=== PATIENT | female | born 1950 | race Caucasian/White ===

== ENCOUNTER 2023-04-22 05:34 | Emergency (ER) | payer OTHER, MEDICAID, SELFPAY ==
[2023-04-22 05:43] VITALS: BP 149/67; PULSE 104; PULSE 72; RESP 20; TEMP 37.2; O2SAT 98; O2SAT 99; BMI 25.7
--- NOTE | 2023-04-22 06:31 | PC.NURSE ---
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 Pt reports fevers and chills at home. 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 Bilateral arm swelling with scabbed wounds noted, boils noted to right upper arm. 22G IV line placed, blood work collected and sent to lab.
[2023-04-22 06:42] LABS: Alanine Aminotransferase 11 U/L (0-31); Albumin Level 2.9 g/dL (3.5-5.0); Alkaline Phosphatase 87 U/L (39-117); Anion Gap 14 (12-20); Aspartate Amino Transferase 13 U/L (5-31); Bilirubin Total 0.2 mg/dL (0.0-1.0); Blood Urea Nitrogen 22 mg/dL (9-16); Calcium 8.5 mg/dL (8.4-10.2); Carbon Dioxide 25 mmol/L (22-29); Chloride 100 mmol/L (96-108); Creatinine Clr Calc Pharmacy 36.6; Estimated Glomerular Filt Rate 40; Glucose Random 271 mg/dL (60-115); Potassium 4.6 mmol/L (3.3-5.1); Sodium 134 mmol/L (135-145); Total Protein 8.2 g/dL (6.5-8.0)
--- NOTE | 2023-04-22 07:20 | PC.NURSE ---
PT IS A/O X 4 NO SOB/STEFANI NOTED. PT IS LEGALLY BLIND. PT IS CONSTANTLY CRYING OUT FOR PAIN MED. AWARE. PT IS ALSO STATING THAT SHE WANTS TO LEAVE.
--- NOTE | 2023-04-22 07:40 | PC.NURSE ---
PT IS ADAMANTLY REFUSING ALL CARE AND STATES THAT SHE WANTS TO LEAVE BECAUSE HER RIDE IS ON ITS WAY. AWARE.
--- NOTE | 2023-04-22 07:46 | ED_ITS ---
HPI - Extremity Problem General Chief complaint: Extremity Problem Stated complaint: pain in arm from sores Time Seen by Provider: 04/22/23 07:02 History of Present Illness HPI Narrative: Patient has a long history of skin infection to bilateral upper extremity. Currently patient claims she is only on vancomycin as she is not allergic to that antibiotic. She has allergies to cephalosporins, clindamycin, doxycycline, E-Mycin, Levaquin, Macrobid, penicillin, Linezolid, sulfa antibiotics. Patient is getting ready to see a specialist in [place] to treat her chronic wounds. Once the pain medication. Patient normally goes to [facility]. No coughing or congestion upper respiratory symptoms. No abdominal pain. No nausea no vomiting. Been having some fever on and off. None today. Related Data Allergies Allergy/AdvReac Type Severity Reaction Status Date / Time cephalexin [From Keflex] Allergy Severe HIVES Verified 04/22/23 06:01 clindamycin [Clindamycin] Allergy Severe HIVES Verified 04/22/23 06:01 doxycycline [Doxycycline] Allergy Severe HIVES Verified 04/22/23 06:01 erythromycin base Allergy Severe HIVES Verified 04/22/23 06:01 [Erythromycin Base] levofloxacin [From Levaquin] Allergy Severe THROAT Verified 04/22/23 06:01 TIGHTENS nitrofurantoin Allergy Severe HIVES Verified 04/22/23 06:01 [From Macrobid] Penicillins Allergy Severe HIVES Verified 04/22/23 06:01 aspirin Allergy Unknown Hives Verified 04/22/23 06:01 linezolid [From ZYVOX] Allergy Unknown UNKNOWN Verified 04/22/23 06:01 Sulfa (Sulfonamide Allergy Unknown HIVES Verified 04/22/23 06:01 Antibiotics) [SULFA (SULFONAMIDE ANTIBIOTICS)] sulfacetamide Allergy Unknown Hives Verified 04/22/23 06:01 Erythromycin Allergy Unknown Hives Uncoded 04/22/23 06:01 seafood/shellfish Allergy Unknown Facial Uncoded 04/22/23 06:01 Swelling Sulfacet-R Allergy Unknown Hives Uncoded 04/22/23 06:01 Review of Systems Review of Systems: Positive bilateral upper extremity pain Positive chronic wounds of bilateral upper extremity Yes all other systems are reviewed and are negative PMFSH Past Medical History Attestation statement: The following information was validated with the patient. Social History Social History Alcohol intake: never Smoked in Last 30 Days: No Use of substances other than those prescribed or required for medical reasons: No Advance Directives: Yes Advance Directives Information Provided: Yes Advance Directives on File: No Physical Exam Vital Signs: Vital Signs: Last Vital Signs Temp 98.9 F 04/22/23 05:43 Pulse 72 04/22/23 05:43 Resp 20 04/22/23 05:43 BP 149/67 H 04/22/23 05:43 Pulse Ox 98 04/22/23 05:43 O2 Del Method Room Air 04/22/23 05:43 BMI result Body Mass Index 25.7 Appearance: Alert. Oriented X3. No acute distress. Eyes: Pupils equal, round and reactive to light. ENT: Pharynx normal. Neck: Normal inspection. Neck supple. No lymph nodes noted. No crepitus CVS: Normal heart rate and rhythm. Pulses normal. Normal S1 and S2. No murmurs appreciated Respiratory: No respiratory distress. Breath sounds normal. No Wheezing. No rales Abdomen: Soft and nontender. No rigidity. No distention. good BS x4 Bilateral upper extremity the forearms show multiple multiple chronic wounds with a slight erythematous base that is not warm to touch. Multiple ulcerations filling the entire forearm bilaterally. There is swelling in the hands bilate rally. Sensation over the hand intact over the median radial and ulnar nerves. Capillary refill less than 2 seconds. In the arm there is multiple fluctuant mass noted especially over the right upper extremity they are not warm to touch they appear chronic Extremities: No lower extremity edema. Neurovascular intact to all extremities. No Lacerations. No Rash Neuro: Oriented X 3. No motor deficit. No sensory deficit. Moving all extermities. No slurred speech Medical Decision Making Medical Decision Making MDM Narrative: Patient has multiple chronic wounds in the forearms and in the arms bilaterally. Labs are initially ordered at triage. Patient's electrolytes appear normal. White count is still pending. Patient did not want additional care. Wants a dose of pain medication. States that she has a specialist in [place]. Explained to patient the need for follow-up. Especially in the setting these extensive chronic wounds. Risk of loss of upper extremity use. Risk of infection. Risk of explained. Patient claims she is already on vancomycin. This provider had some doubts how well the vancomycin were orally. She is signing out against medical advice. A dose of pain medication was given as the wounds appeared very painful. Patient is leaving against medical advice Differential Diagnosis Differential Diagnoses: The differential diagnosis associated with the presentation includes Cellulitis, abscess, chronic wound Admission/Observation Consideration of admission/observation: Escalation of care including admission/observation considered Patient refuse Lab Data MDM Lab Attestation statement: I reviewed the patient's lab results. 04/22/23 06:20 04/22/23 06:20 Labs: Lab Results 04/22/23 Range/Units 06:20 Sodium 134 L (135-145) mmol/L Potassium 4.6 (3.3-5.1) mmol/L Chloride 100 (96-108) mmol/L Carbon Dioxide 25 (22-29) mmol/L Anion Gap 14 (12-20) BUN 22 H (9-16) mg/dL Creatinine 1.30 (0.5-1.4) mg/dL Estim Creat Clear Calc 36.6 Estimated GFR 40 Random Glucose 271 H (60-115) mg/dL Calcium 8.5 (8.4-10.2) mg/dL Total Bilirubin 0.2 (0.0-1.0) mg/dL AST 13 (5-31) U/L ALT 11 (0-31) U/L Alkaline Phosphatase 87 (39-117) U/L Total Protein 8.2 H (6.5-8.0) g/dL Albumin 2.9 L (3.5-5.0) g/dL External Record Review Patient has record from [facility] they reviewed Discharge Plan Discharge Clinical Impression: Upper extremity pain Patient Disposition: Left Against Medical Advice Instructions: Arm Pain (ED) Additional Instructions: Risk of infection, risk of severe disability exists. Referrals: Karla Ceballos MD [Primary Care Provider] - 04/23/23 Stand Alone Forms: Against Medical Advice
--- NOTE | 2023-04-22 07:50 | PC.NURSE ---
PT IS FULLY DRESSED IN STREET CLOTHING AND IS ADAMANTLY REQUESTING D/C PAPERWORK. AWARE.
[2023-04-22] MEDS: HYDROmorphone HCl 0.5 MG/0.5 ML SYRINGE IVPUSH (07:55)
== END 2023-04-22 08:00 | disposition left against medical advice (07) ==
PROVIDERS: Emergency Provider Emergency Medicine Emergency Medical Services; PCP Pediatrics
DX: M79.602 Pain in left arm (principal); M79.601 Pain in right arm
CPT/HCPCS: 36415; 80053; 96374; 99284; J1170

== ENCOUNTER 2023-07-27 12:23 | Emergency (ER) | payer OTHER, MEDICAID, SELFPAY ==
--- NOTE | ~2023-07-27 | XR_ITS ---
EXAMINATION: XR CHEST CLINICAL INFORMATION: Hypoxia, aspiration COMPARISON: Chest x-ray on 02/13/2012 TECHNIQUE: Frontal view of the chest was obtained. FINDINGS: vascularity. LUNGS: Tiny horizontal linear atelectasis is seen at lateral right lung base. No pneumothorax is seen. None. XR/XR chest 1V IMPRESSION: Interval development of tiny right lateral lung base horizontal linear atelectasis. Please note that chest x-ray has limited sensitivity for groundglass infiltrates.
[2023-07-27 12:30] VITALS: BP 107/63; BP 115/54; PULSE 100; PULSE 95; RESP 16; TEMP 36.5; O2SAT 90; O2SAT 99; BMI 22.4
--- NOTE | 2023-07-27 12:36 | ECG_ITS ---
Test Reason : ams Blood Pressure : / mmHG Vent. Rate : 086 BPM Atrial Rate : 086 BPM P-R Int : 118 ms QRS Dur : 068 ms QT Int : 366 ms P-R-T Axes : 081 058 016 degrees QTc Int : 437 ms Normal sinus rhythm Nonspecific ST and T wave abnormality Abnormal ECG When compared with ECG of 24-JUL-2010 13:02, Nonspecific T wave abnormality now evident in Lateral leads Heart rate has increased Referred By: Cheyenne Benjamin Electronically Signed By:MT LAGUNAS MD
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
--- NOTE | 2023-07-27 13:47 | PC.NURSE ---
pt found by [employer] unresponsive. 4mg Narcan given. Pt became arousable and vomited. Since being in ED pt is alert, responsive, speaking in full sentences with stable vitals and high 02 sat. pt is poor historian. bilateral wounds in various stages of healing to arms. about 1 inch second stage sacral wound as well as area of bleeding close to anus. PA notified. pt has had a couple bouts of vomiting in room. tech attempting lab work, plan of care ongoing
[2023-07-27 14:19] LABS: MANUAL DIFF FLAG NO
[2023-07-27 14:24] LABS: VBG Base Excess -3.7 mmol/L; VBG HCO3 22 mmol/L (22-26); VBG pCO2 41 mmHg; VBG pH 7.32 (7.32-7.43); VBG pO2 60 mmHg
[2023-07-27 14:24] LABS: Basophils Percent Auto 0.4 % (0-2); Hematocrit 25.7 % (37.0-47.0); Hemoglobin 8.1 g/dl (12.0-16.0); Imm Gran Abs Auto 0.06 X10*3/uL (0.00-0.03); Imm Gran Pct Auto 0.9 % (0.0-0.4); Lymphocytes Absolute Auto 1.2 X10*3/uL (1.2-4.9); Lymphocytes Percent Auto 16.4 % (20-40); Mean Corpuscular HGB Conc 31.5 g/dl (31.0-35.0); Mean Corpuscular Hemoglobin 29.3 pg (27.0-33.0); Mean Corpuscular Volume 93.1 fL (80.0-98.0); Monocytes Absolute Auto 0.4 X10*3/uL (0.1-1.2); Neutrophils Absolute Auto 5.3 x10*3/uL (2.0-8.3); Neutrophils Percent Auto 76.3 % (45-73); Platelet Count 369 X10*3/uL (160-400); Red Blood Count 2.76 X10*6/uL (4.20-5.50); Red Cell Distribution Width 16.5 % (11.0-16.0); Venous Blood Gas Refer to POC result
--- NOTE | 2023-07-27 14:35 | PC.NURSE ---
soft foam dressing applied to sacral wound
[2023-07-27 14:44] LABS: B Type Natriuretic Peptide 180 pg/mL (<100)
[2023-07-27 14:49] LABS: Troponin-I High Sensitivity < 2.7 ng/L (<3.5-17.0)
[2023-07-27 14:50] LABS: Alanine Aminotransferase 7 U/L (0-31); Alkaline Phosphatase 120 U/L (39-117); Anion Gap 12 (12-20); Aspartate Amino Transferase 11 U/L (5-31); Bilirubin Direct 0.2 mg/dL (0.0-0.5); Bilirubin Total 0.2 mg/dL (0.0-1.0); Blood Urea Nitrogen 25 mg/dL (9-16); Calcium 8.4 mg/dL (8.4-10.2); Carbon Dioxide 19 mmol/L (22-29); Chloride 111 mmol/L (96-108); Creatinine Clr Calc Pharmacy 35.3; Estimated Glomerular Filt Rate 44; Glucose Random 97 mg/dL (60-115); Magnesium 1.4 mg/dL (1.6-2.6); Potassium 4.1 mmol/L (3.3-5.1); Sodium 138 mmol/L (135-145); Total Protein 6.6 g/dL (6.5-8.0)
[2023-07-27 15:17] VITALS: BP 107/55; PULSE 82; RESP 16; TEMP 36.5; O2SAT 97
[2023-07-27 15:27] LABS: Appearance Urine Clear; Color Urine Yellow; Glucose Urine UA Negative (Negative); Leukocyte Esterase Urine Trace (Negative); Nitrite Urine Negative (Negative); Specific Gravity - Urine 1.015 (1.005-1.025); UMIC TRIGGER UACC YES; Urine Blood Small (1+) (Negative); Urine Ketones Negative (Negative); Urine Protein Trace mg/dL (Neg-Trace)
[2023-07-27 15:33] LABS: Amphetamine Screen Urine Not Detected (Not Detect); Barbiturates, Urine Not Detected (Not Detect); Benzodiazepines Screen Urine Not Detected (Not Detect); Cannabinoid Screen Urine Not Detected (Not Detect); Cocaine Screen Urine Not Detected (Not Detect); Fentanyl, urine POSITIVE (Not Detect); Opiate Screen Urine POSITIVE (Not Detect); Phencyclidine Screen Urine Not Detected (Not Detect)
[2023-07-27 15:46] LABS: Bacteria Urine None Seen (None Seen); Hyaline Casts Urine 0-2 /LPF (0-2); Squamous Epithelial Cell Urine 0-2 /HPF (0-2); WBC Urine 0-5 /HPF (0-5)
[2023-07-27] MEDS: Magnesium Oxide 400 MG TABLET 800 MG PO (15:49)
--- NOTE | 2023-07-27 15:55 | PC.NURSE ---
medicated per nov with magnesium. wounds on sacral area and anal area dressed. Apple juice given. vitals stable, no signs of distress. plan to DC home
== END 2023-07-27 16:59 | disposition home or self-care (01) ==
PROVIDERS: Physician Assistant; Emergency Provider Emergency Medicine Emergency Medical Services; PCP Pediatrics
DX: T40.1X1A Poisoning by heroin, accidental (unintentional), initial encounter (principal); T40.411A Poisoning by fentanyl or fentanyl analogs, accidental (unintentional), initial encounter; F19.10 Other psychoactive substance abuse, uncomplicated; R09.02 Hypoxemia; Y92.9 Unspecified place or not applicable; D64.9 Anemia, unspecified; Z86.14 Personal history of Methicillin resistant Staphylococcus aureus infection; Z79.899 Other long term (current) drug therapy
CPT/HCPCS: 36415; 71045; 80048; 80076; 80307; 81001; 82803; 83735; 83880; 84484; 85025; 93005; 99284

== ENCOUNTER 2023-08-03 17:06 | Inpatient (IN) | payer OTHER, SELFPAY ==
[2023-08-03] VITALS (7 sets, daily range): BP systolic 115–134; BP diastolic 58–77; PULSE 96–124; RESP 16–22; TEMP 36.4–37.2; O2SAT 94–98; BMI 22.1
--- NOTE | ~2023-08-03 | XR_ITS ---
EXAMINATION: XR CHEST CLINICAL INFORMATION: Fever COMPARISON: 08/03/2023 TECHNIQUE: Frontal view of the chest was obtained. FINDINGS: Lungs grossly clear given technique. Heart and pulmonary vessels normal. There is advanced degenerative change in the shoulder joints. XR/XR chest 1V IMPRESSION: No active disease.
--- NOTE | ~2023-08-03 | XR_ITS ---
EXAMINATION: PORTABLE CHEST 1 VIEW CLINICAL INFORMATION: sob, cough. COMPARISON: 07/27/2023. TECHNIQUE: Portable frontal view of the chest was obtained. FINDINGS: The lungs are well expanded. No focal infiltrate, effusion, edema, or pneumothorax. Cardiac and mediastinal silhouettes are within normal limits for technique. No acute bony abnormality seen. XR/XR chest 1V IMPRESSION: No evidence of acute disease.
--- NOTE | 2023-08-03 17:15 | ECG_ITS ---
Test Reason : SOB Blood Pressure : / mmHG Vent. Rate : 122 BPM Atrial Rate : 122 BPM P-R Int : 130 ms QRS Dur : 074 ms QT Int : 298 ms P-R-T Axes : 079 057 -51 degrees QTc Int : 424 ms Sinus tachycardia Possible Left atrial enlargement ST & T wave abnormality, consider inferior ischemia ST & T wave abnormality, consider anterior ischemia Abnormal ECG When compared with ECG of 27-JUL-2023 12:58, Non-specific change in ST segment in Inferior leads T wave inversion now evident in Anterior leads Referred By: Shari Jacobson Electronically Signed By:MT LAGUNAS MD
--- NOTE | 2023-08-03 17:17 | ED.GENADULT ---
HPI - General Adult General Chief complaint: Recheck/Abnormal Lab/Rx Stated complaint: ABNORMAL LABS Time Seen by Provider: 08/03/23 17:08 Source: patient and EMS Mode of arrival: EMS Limitations: no limitations History of Present Illness HPI narrative: Patient comes to the emergency room complaining abnormal hemoglobin levels. Patient states that about a week ago, she needed a transfusion, patient known to be anemic, patient does not know her diagnosis. Patient states she is in dynamic since childhood and has had multiple transfusions. Patient states that she got a phone call from her primary care physician a few minutes ago, regarding her blood work, patient was instructed to come to the emergency room as she may need a blood transfusion. Patient complaining of shortness of breath. Patient states that she has her inhaler approximately 3-1/2 hours ago but the shortness of breath keeps getting worse. Patient denies black stool or bloody stool. 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 Related Data Allergies Allergy/AdvReac Type Severity Reaction Status Date / Time cephalexin [From Keflex] Allergy Severe HIVES Verified 04/22/23 06:01 clindamycin [Clindamycin] Allergy Severe HIVES Verified 04/22/23 06:01 doxycycline [Doxycycline] Allergy Severe HIVES Verified 04/22/23 06:01 erythromycin base Allergy Severe HIVES Verified 04/22/23 06:01 [Erythromycin Base] levofloxacin [From Levaquin] Allergy Severe THROAT Verified 04/22/23 06:01 TIGHTENS nitrofurantoin Allergy Severe HIVES Verified 04/22/23 06:01 [From Macrobid] Penicillins Allergy Severe HIVES Verified 04/22/23 06:01 aspirin Allergy Unknown Hives Verified 04/22/23 06:01 linezolid [From ZYVOX] Allergy Unknown UNKNOWN Verified 04/22/23 06:01 Sulfa (Sulfonamide Allergy Unknown HIVES Verified 04/22/23 06:01 Antibiotics) [SULFA (SULFONAMIDE ANTIBIOTICS)] sulfacetamide Allergy Unknown Hives Verified 04/22/23 06:01 Erythromycin Allergy Unknown Hives Uncoded 04/22/23 06:01 seafood/shellfish Allergy Unknown Facial Uncoded 04/22/23 06:01 Swelling Sulfacet-R Allergy Unknown Hives Uncoded 04/22/23 06:01 Review of Systems Review of Systems: Constitutional : No Weight loss, No Fever, No Chills, No Night Sweats, complaining of fatigue and generalized malaise ENT/Mouth : No Hearing loss, No Ear Pain, No Nasal Congestion, No Sinus Pain, No Hoarseness, No sore throat, No Rhinorrhea, No Swallowing Difficulty Eyes: No Eye Pain, No Swelling, No Redness, No Foreign Body, No Discharge, No Vision Changes Cardiovascular : No Chest Pain, No SOB, No Dyspnea on Exertion, No Orthopnea, No Edema, No Palpitations Respiratory : Complaining of cough without sputum production, complaining of wheezing, shortness of breath at rest Gastrointestinal : No Nausea, No Vomiting, No Diarrhea, No Constipation, No abdominal Pain, No Hematochezia, No Melena Genitourinary : no irregular bleeding, No Dysuria, No Urinary Frequency, No Hematuria, No Urinary Incontinence, No Urgency, No Flank Pain, No Urinary Flow Changes, No Hesitancy Musculoskeletal : No joint pain, No Myalgias, No Joint Swelling Skin , complaining of chronic sacral wounds Neuro : No Weakness, No Numbness, No Paresthesias, No Loss of Consciousness, No Dizziness, No Headache Psych : No Anxiety/Panic, No Depression, No SI/HI/AH/VH, No Social Issues, Heme/Lymph: Complaining of low hemoglobin Endocrine : No Polyuria, No Polydipsia, No Temperature Intolerance [facility] Past Medical History Medical History (Updated 08/03/23 @ 20:59 by Shari Jacobson MD) Chronic anemia MRSA cellulitis Asthma Legally blind Social History Social History Alcohol intake: never Smoked in Last 30 Days: No Advance Directives: No Advance Directives Information Provided: No Physical Exam ED Vital Signs: Vital Signs - 24 hr 08/03/23 17:41 08/03/23 17:50 08/03/23 19:19 Temperature 98.9 F 98.5 F Pulse Rate 112 H 107 H 111 H Respiratory Rate 22 H 16 20 Blood Pressure 134/77 126/65 Pulse Oximetry 97 97 Oxygen Delivery Method Room Air Room Air 08/03/23 21:02 Temperature Pulse Rate 100 Respiratory Rate 20 Blood Pressure Pulse Oximetry Oxygen Delivery Method BMI result Body Mass Index 22.1 Const Other: Appearance: Alert. Oriented X3. No acute distress. Eyes: Pupils equal, round and reactive to light. ENT: Pharynx normal. Neck: Normal inspection. Neck supple. No lymph nodes noted. No crepitus CVS: Normal heart rate and rhythm. Pulses normal. Normal S1 and S2 Respiratory: Tachypneic, bilateral wheezing, diminished air movement Abdomen: Soft and nontender. No rigidity. No distention. Digital rectal exam: Maroon colored stool Skin: Skin warm and dry. Pale skin color. Normal skin turgor. Patient has ulcers in the medial right upper arm and buttocks Extremities: No lower extremity edema. No Lacerations. No Rash Neuro: Oriented X 3. No motor deficit. No sensory deficit. Moving all extremities. No slurred speech. CN 2 through 12 grossly intact Psych: calm, cooperative, normal affect Course Course Course Narrative: -all of patient's labs pending -patient receiving a nebulization treatment, magnesium and Solu-Medrol Medications Administered Generic Name Dose Route Start Last Admin Trade Name Freq PRN Reason Stop Dose Admin Sodium Chloride 1,000 mls @ 999 mls/hr 08/03/23 20:46 08/03/23 21:00 Ns IVCONT 08/03/23 21:46 999 mls/hr .Q1H1M ONE Administration Discontinued Medications Generic Name Dose Route Start Last Admin Trade Name Freq PRN Reason Stop Dose Admin Albuterol Sulfate 2.5 mg/ 5 mg 08/03/23 17:48 08/03/23 17:50 Albuterol Sulfate 2.5 mg INHALE 08/03/23 17:49 5 mg ONCE ONE Administration Albuterol Sulfate 5 mg/ 0 mg 08/03/23 20:55 08/03/23 21:01 Albuterol/Ipratropium 3 ml INHALE 08/03/23 20:56 2.5 each ONCE ONE Administration Magnesium Sulfate 2 gm in 50 mls @ 25 mls/hr 08/03/23 17:16 08/03/23 20:02 Magnesium Sulfate/H2o IV 08/03/23 19:15 25 mls/hr ONCE ONE Administration Lidocaine HCl 5 ml 08/03/23 18:52 08/03/23 20:02 Lidocaine Hcl 2 % Mpf 5 Ml Vial INFILTRATI 08/03/23 18:53 5 ml ONCE ONE Administration Methylprednisolone Sodium Succinate 125 mg 08/03/23 17:16 08/03/23 20:02 Methylprednisolone Sod Succ 125 Mg/2 Ml Vial IVPUSH 08/03/23 17:17 125 mg ONCE ONE Administration Tramadol HCl 50 mg 08/03/23 20:46 08/03/23 20:59 Tramadol Hcl 50 Mg Tablet PO 08/03/23 20:47 50 mg ONCE ONE Administration Procedures EJ/Peripheral Line Neck R: Time Out Performed: Yes Skin Cleansed in Sterile Fashion: Yes Size (gauge): 18 IV Secured and Dressing Applied: Yes Patient Tolerated Procedure: well and no complications Additional Comments: Right IJ Medical Decision Making Medical Decision Making [facility] Narrative: -my interpretation of chest x-ray: No infiltrate -my interpretation of labs, hemoglobin is 8.8. At this time, we will not transfuse. We will repeat H&H. Magnesium level 1.3, patient was given 2 g of magnesium -patient has history of anemia. However, patient states that she takes Motrin once or twice a day daily for several months now to alleviate pain from pressure ulcers in the buttocks -patient seems dehydrated, dry lips/mouth, patient will be hydrated with IV fluids after H&H has been repeated -patient breathing more comfortably after having an albuterol treatment, IV magnesium, Solu-Medrol. However, patient still wheezing -as mentioned above, patient has been prescribed Eliquis for the bilateral lower extremity DVTs. However, patient was instructed by her provider to not started until she is medically cleared. Therefore, patient has not had any doses of blood thinners yet. -I was informed by the patient's nurse that multiple nurses have tried to get IV access. Patient has significant amount of chronic scar tissue in upper lower extremities. I was able to insert an ultrasound-guided single-lumen in the right IJ -I discussed the patient Dr. Gillespie, patient being admitted -I was informed by the lab that the patient's hemoglobin is now 6.9. However, I spoke with the patient's nurse, seems that the lab was drawn from a line which may have contained saline? Will obtain an H&H, this time venous Differential Diagnosis Differential Diagnoses: The differential diagnosis associated with the presentation includes (Chronic anemia, upper GI bleed, lower GI bleed) Admission/Observation Consideration of admission/observation: Escalation of care including admission/observation considered Consult Healthcare Provider Management of the patient was discussed with: Hospitalist Lab Data MDM Lab Attestation statement: I reviewed the patient's lab results. 08/03/23 20:57 08/03/23 18:25 Labs: Lab Results 08/03/23 08/03/23 08/03/23 Range/Units 18:25 18:26 18:28 WBC 5.8 (4.8-10.8) X10*3/uL RBC 2.98 L (4.20-5.50) X10*6/uL Hgb 8.8 L (12.0-16.0) g/dl Hct 27.7 L (37.0-47.0) % MCV 93.0 (80.0-98.0) fL MCH 29.5 (27.0-33.0) pg MCHC 31.8 (31.0-35.0) g/dl RDW 17.1 H (11.0-16.0) % Plt Count 224 D (160-400) X10*3/uL MPV 10.0 (9.4-12.3) fL Immature Gran % (Auto) 0.5 H (0.0-0.4) % Neut % (Auto) 43.5 L (45-73) % Lymph % (Auto) 49.0 H (20-40) % Hall % (Auto) 6.2 (2-11) % Eos % (Auto) 0.3 (0-4) % Baso % (Auto) 0.5 (0-2) % Lymph # (Auto) 2.8 (1.2-4.9) X10*3/uL Hall # (Auto) 0.4 (0.1-1.2) X10*3/uL Eos # (Auto) 0.0 (0.0-0.4) X10*3/uL Baso # (Auto) 0.0 (0.0-0.2) X10*3/uL Abs Immat Gran (auto) 0.03 (0.00-0.03) X10*3/uL Absolute Neuts (auto) 2.5 (2.0-8.3) x10*3/uL Absolute Nucleated RBC 0.000 (0.0-0.012) X10*3/uL Nucleated RBC % (auto) 0.0 (0.0-0.2) /100WBC PT 11.7 (11.1-13.3) SEC INR 1.0 (0.9-1.1) APTT 25.9 L (26.0-36.4) SEC VBG pH (7.32-7.43) VBG pCO2 mmHg VBG pO2 mmHg VBG HCO3 (22-26) mmol/L VBG O2 Saturation % VBG Base Excess mmol/L Sodium 137 (135-145) mmol/L Potassium 4.0 (3.3-5.1) mmol/L Chloride 107 (96-108) mmol/L Carbon Dioxide 23 (22-29) mmol/L Anion Gap 11 L (12-20) BUN 23 H (9-16) mg/dL Creatinine 0.93 (0.5-1.4) mg/dL Estim Creat Clear Calc 45.8 Estimated GFR 59 Random Glucose 124 H (60-115) mg/dL Lactic Acid 1.6 (0.5-2.0) mmol/L Calcium 7.6 L D (8.4-10.2) mg/dL Magnesium 1.3 L* (1.6-2.6) mg/dL Total Bilirubin 0.2 (0.0-1.0) mg/dL Direct Bilirubin < 0.2 (0.0-0.5) mg/dL AST 10 (5-31) U/L ALT 7 (0-31) U/L Alkaline Phosphatase 102 (39-117) U/L Troponin I High Sens 4.3 D (<3.5-17.0) ng/L B-Natriuretic Peptide 98 (<100) pg/mL Total Protein 6.3 L (6.5-8.0) g/dL Albumin 2.0 L (3.5-5.0) g/dL Stool Occult Blood (NEGATIVE) Urine Opiates Screen (Not Detect) Urine Fentanyl Screen (Not Detect) Ur Barbiturates Screen (Not Detect) Ur Phencyclidine Scrn (Not Detect) Ur Amphetamines Screen (Not Detect) U Benzodiazepines Scrn (Not Detect) Urine Cocaine Screen (Not Detect) U Marijuana (THC) Screen (Not Detect) COVID-19 ([facility]) (Negative) COVID-19 Clin Com Blood Type AB Positive Antibody Screen NEGATIVE 11/03/23 11/03/23 11/03/23 Range/Units 18:29 18:33 19:18 WBC (4.8-10.8) X10*3/uL RBC (4.20-5.50) X10*6/uL Hgb (12.0-16.0) g/dl Hct (37.0-47.0) % MCV (80.0-98.0) fL MCH (27.0-33.0) pg MCHC (31.0-35.0) g/dl RDW (11.0-16.0) % Plt Count (160-400) X10*3/uL MPV (9.4-12.3) fL Immature Gran % (Auto) (0.0-0.4) % Neut % (Auto) (45-73) % Lymph % (Auto) (20-40) % Hall % (Auto) (2-11) % Eos % (Auto) (0-4) % Baso % (Auto) (0-2) % Lymph # (Auto) (1.2-4.9) X10*3/uL Hall # (Auto) (0.1-1.2) X10*3/uL Eos # (Auto) (0.0-0.4) X10*3/uL Baso # (Auto) (0.0-0.2) X10*3/uL Abs Immat Gran (auto) (0.00-0.03) X10*3/uL Absolute Neuts (auto) (2.0-8.3) x10*3/uL Absolute Nucleated RBC (0.0-0.012) X10*3/uL Nucleated RBC % (auto) (0.0-0.2) /100WBC PT (11.1-13.3) SEC INR (0.9-1.1) APTT (26.0-36.4) SEC VBG pH 7.37 (7.32-7.43) VBG pCO2 46 mmHg VBG pO2 38 mmHg VBG HCO3 26 (22-26) mmol/L VBG O2 Saturation 58.0 % VBG Base Excess 1.2 mmol/L Sodium (135-145) mmol/L Potassium (3.3-5.1) mmol/L Chloride (96-108) mmol/L Carbon Dioxide (22-29) mmol/L Anion Gap (12-20) BUN (9-16) mg/dL Creatinine (0.5-1.4) mg/dL Estim Creat Clear Calc Estimated GFR Random Glucose (60-115) mg/dL Lactic Acid (0.5-2.0) mmol/L Calcium (8.4-10.2) mg/dL Magnesium (1.6-2.6) mg/dL Total Bilirubin (0.0-1.0) mg/dL Direct Bilirubin (0.0-0.5) mg/dL AST (5-31) U/L ALT (0-31) U/L Alkaline Phosphatase (39-117) U/L Troponin I High Sens (<3.5-17.0) ng/L B-Natriuretic Peptide (<100) pg/mL Total Protein (6.5-8.0) g/dL Albumin (3.5-5.0) g/dL Stool Occult Blood POSITIVE (NEGATIVE) Urine Opiates Screen Not Detected (Not Detect) Urine Fentanyl Screen POSITIVE H (Not Detect) Ur Barbiturates Screen Not Detected (Not Detect) Ur Phencyclidine Scrn Not Detected (Not Detect) Ur Amphetamines Screen Not Detected (Not Detect) U Benzodiazepines Scrn Not Detected (Not Detect) Urine Cocaine Screen Not Detected (Not Detect) U Marijuana (THC) Screen Not Detected (Not Detect) COVID-19 ([facility]) Negative (Negative) COVID-19 Clin Com See Note Blood Type Antibody Screen 08/03/23 Range/Units 20:57 WBC (4.8-10.8) X10*3/uL RBC (4.20-5.50) X10*6/uL Hgb 6.9 L* D (12.0-16.0) g/dl Hct 21.8 L D (37.0-47.0) % MCV (80.0-98.0) fL MCH (27.0-33.0) pg MCHC (31.0-35.0) g/dl RDW (11.0-16.0) % Plt Count (160-400) X10*3/uL MPV (9.4-12.3) fL Immature Gran % (Auto) (0.0-0.4) % Neut % (Auto) (45-73) % Lymph % (Auto) (20-40) % Hall % (Auto) (2-11) % Eos % (Auto) (0-4) % Baso % (Auto) (0-2) % Lymph # (Auto) (1.2-4.9) X10*3/uL Hall # (Auto) (0.1-1.2) X10*3/uL Eos # (Auto) (0.0-0.4) X10*3/uL Baso # (Auto) (0.0-0.2) X10*3/uL Abs Immat Gran (auto) (0.00-0.03) X10*3/uL Absolute Neuts (auto) (2.0-8.3) x10*3/uL Absolute Nucleated RBC (0.0-0.012) X10*3/uL Nucleated RBC % (auto) (0.0-0.2) /100WBC PT (11.1-13.3) SEC INR (0.9-1.1) APTT (26.0-36.4) SEC VBG pH (7.32-7.43) VBG pCO2 mmHg VBG pO2 mmHg VBG HCO3 (22-26) mmol/L VBG O2 Saturation % VBG Base Excess mmol/L Sodium (135-145) mmol/L Potassium (3.3-5.1) mmol/L Chloride (96-108) mmol/L Carbon Dioxide (22-29) mmol/L Anion Gap (12-20) BUN (9-16) mg/dL Creatinine (0.5-1.4) mg/dL Estim Creat Clear Calc Estimated GFR Random Glucose (60-115) mg/dL Lactic Acid (0.5-2.0) mmol/L Calcium (8.4-10.2) mg/dL Magnesium (1.6-2.6) mg/dL Total Bilirubin (0.0-1.0) mg/dL Direct Bilirubin (0.0-0.5) mg/dL AST (5-31) U/L ALT (0-31) U/L Alkaline Phosphatase (39-117) U/L Troponin I High Sens (<3.5-17.0) ng/L B-Natriuretic Peptide (<100) pg/mL Total Protein (6.5-8.0) g/dL Albumin (3.5-5.0) g/dL Stool Occult Blood (NEGATIVE) Urine Opiates Screen (Not Detect) Urine Fentanyl Screen (Not Detect) Ur Barbiturates Screen (Not Detect) Ur Phencyclidine Scrn (Not Detect) Ur Amphetamines Screen (Not Detect) U Benzodiazepines Scrn (Not Detect) Urine Cocaine Screen (Not Detect) U Marijuana (THC) Screen (Not Detect) COVID-19 ([facility]) (Negative) COVID-19 Clin Com Blood Type Antibody Screen Independent Interpretation I performed an independent interpretation of an: Plain X-Ray Radiology Impression Discussion of test interpretation with radiology: I have reviewed the radiologist's reading. Radiologist Impression: FINDINGS: The lungs are well expanded. No focal infiltrate, effusion, edema, or pneumothorax. Cardiac and mediastinal silhouettes are within normal limits for technique. No acute bony abnormality seen. XR/XR chest 1V IMPRESSION: No evidence of acute disease. Critical Care Time Critical Care Time Critical Care Time: Yes Total Critical Care Time: 75 Attestation: I have personally provided critical care time. Time includes review of lab data, radiology results, discussion with consultants, and monitoring for potential decompensation. Intervention performed as documented. Discharge Plan Discharge Clinical Impression: GI bleed, Anemia, Asthma exacerbation, Hypomagnesemia Patient Disposition: Admitted As Inpatient
[2023-08-03] MEDS: Albuterol Sulfate 2.5 MG, Albuterol Sulfate (0.083%) 2.5 MG 5 MG INHALE ×2 (17:50→22:06)
--- NOTE | 2023-08-03 18:08 | PC.NURSE ---
attempted to obtain IV access, no luck. pt is a difficult stick. provider aware. will reattempt.
[2023-08-03 18:34] LABS: MANUAL DIFF FLAG NO
[2023-08-03 18:37] LABS: Basophils Percent Auto 0.5 % (0-2); Eosinophils Percent Auto 0.3 % (0-4); Hematocrit 27.7 % (37.0-47.0); Hemoglobin 8.8 g/dl (12.0-16.0); Imm Gran Abs Auto 0.03 X10*3/uL (0.00-0.03); Imm Gran Pct Auto 0.5 % (0.0-0.4); Lymphocytes Absolute Auto 2.8 X10*3/uL (1.2-4.9); Mean Corpuscular HGB Conc 31.8 g/dl (31.0-35.0); Mean Corpuscular Hemoglobin 29.5 pg (27.0-33.0); Monocytes Absolute Auto 0.4 X10*3/uL (0.1-1.2); Monocytes Percent Auto 6.2 % (2-11); Neutrophils Absolute Auto 2.5 x10*3/uL (2.0-8.3); Neutrophils Percent Auto 43.5 % (45-73); Platelet Count 224 X10*3/uL (160-400); Red Blood Count 2.98 X10*6/uL (4.20-5.50); Red Cell Distribution Width 17.1 % (11.0-16.0); White Blood Count 5.8 X10*3/uL (4.8-10.8)
[2023-08-03 18:42] LABS: VBG Base Excess 1.2 mmol/L; VBG HCO3 26 mmol/L (22-26); VBG pCO2 46 mmHg; VBG pH 7.37 (7.32-7.43); VBG pO2 38 mmHg
[2023-08-03 18:48] LABS: OBS Int Ctl Valid YES; OBS1 POSITIVE (NEGATIVE)
[2023-08-03 18:53] LABS: Lactic Acid 1.6 mmol/L (0.5-2.0)
[2023-08-03 18:54] LABS: Prothrombin Time 11.7 SEC (11.1-13.3)
[2023-08-03 18:56] LABS: B Type Natriuretic Peptide 98 pg/mL (<100); Partial Thromboplastin Time 25.9 SEC (26.0-36.4)
[2023-08-03 18:58] LABS: Troponin-I High Sensitivity 4.3 ng/L (<3.5-17.0)
[2023-08-03 18:59] LABS: Alanine Aminotransferase 7 U/L (0-31); Alkaline Phosphatase 102 U/L (39-117); Anion Gap 11 (12-20); Aspartate Amino Transferase 10 U/L (5-31); Bilirubin Direct < 0.2 mg/dL (0.0-0.5); Bilirubin Total 0.2 mg/dL (0.0-1.0); Blood Urea Nitrogen 23 mg/dL (9-16); Calcium 7.6 mg/dL (8.4-10.2); Carbon Dioxide 23 mmol/L (22-29); Chloride 107 mmol/L (96-108); Creatinine Clr Calc Pharmacy 45.8; Estimated Glomerular Filt Rate 59; Glucose Random 124 mg/dL (60-115); Magnesium 1.3 mg/dL (1.6-2.6); Sodium 137 mmol/L (135-145); Total Protein 6.3 g/dL (6.5-8.0)
[2023-08-03 19:00] LABS: COVID-19 Test Negative (Negative); IDNOW Serial# BCCEAD1C
[2023-08-03 19:13] LABS: Venous Blood Gas Refer to POC result
--- NOTE | 2023-08-03 19:15 | PC.NURSE ---
assumed are of pt
[2023-08-03 19:41] LABS: Amphetamine Screen Urine Not Detected (Not Detect); Barbiturates, Urine Not Detected (Not Detect); Benzodiazepines Screen Urine Not Detected (Not Detect); Cannabinoid Screen Urine Not Detected (Not Detect); Cocaine Screen Urine Not Detected (Not Detect); Fentanyl, urine POSITIVE (Not Detect); Opiate Screen Urine Not Detected (Not Detect); Phencyclidine Screen Urine Not Detected (Not Detect)
[2023-08-03] MEDS: Magnesium Sulfate/H2O 2 GM/50 ML PIGGYBACK IV (20:02)
[2023-08-03] MEDS: Lidocaine HCl 2 % MPF 5 ML VIAL INFILTRATI (20:02)
[2023-08-03] MEDS: methylPREDNISolone Sod Succ 125 MG/2 ML VIAL IVPUSH (20:02)
--- NOTE | 2023-08-03 20:03 | PC.NURSE ---
du in meds due to pt needed ej line
[2023-08-03] MEDS: traMADoL HCL 50 MG TABLET PO (20:59)
[2023-08-03] MEDS: 0.9 % Sodium Chloride 1,000 ML 999 ML IVCONT (21:00)
[2023-08-03] MEDS: Albuterol Sulfate 5 MG, Albuterol/Iprat 2.5/0.5MG 3 ML 3 ML INHALE (21:01)
[2023-08-03 21:05] LABS: Hematocrit 21.8 % (37.0-47.0)
[2023-08-03 21:11] LABS: Hemoglobin 6.9 g/dl (12.0-16.0)
--- NOTE | 2023-08-03 21:25 | PHA.MEDREC ---
Pharmacy Consult ? Medication Reconciliation Pharmacy has completed the medication reconciliation. Patient list all medications. Reported Flovent and Asmanex, however theres are in the same class of inhalers. Patient report 250 mcg for Flovent but did not know dose of Asamnex. Since Asamenx was not on claim history and she did not know dose, I did not include in home list since Flovent in a similar medication. Patient has not have clonazepam filled since may. Reports montelukast but that has not been filled recently. Cydney Mora, PharmD
[2023-08-03 21:47] LABS: Hematocrit 26.7 % (37.0-47.0); Hemoglobin 8.3 g/dl (12.0-16.0)
--- NOTE | 2023-08-03 22:31 | PM.IMHP ---
History of Present Illness Date of Service: 08/03/23 Chief Complaint: Abnormal labs Elli is a 73-year-old woman with a past medical history of COPD, hepatitis C, IV drug use, history of?MRSA abscesses,?history of c dif, history E. coli colitis, osteomyelitis of the humerus, clavicle, and scapula with MSSA bacteremia in [facility] of 2022 and was treated with joint terminal attack controller Abx?at [facility]. She has chronic anemia; baseline hematocrit?from reviewing records at [facility] is 26, which is essentially unchanged. Pt?reportedly had lab work done today and was told by PCP to come to the ED. Her blood count here shows hemoglobin of 8 and hematocrit of 26. She was prescribed eliquis 2.5 bid by her PCP today but states that she has not yet taken it, the indication is not clear Review of Systems Review of Systems: Gen: no fever Resp: no sob, no cough CV: no chest, no LEDBETTER, no leg edema GI: No n/v, no abd pain, occult blood + Neuro: No confusion [facility] Medical History Left against medical advice Bacteremia Chronic anemia MRSA cellulitis Asthma Legally blind Social History Household Members: Friend(s) Housing: Homeless Do you presently have visiting nurse or other home services: Yes Unable to assess alcohol history related to: Unknown Alcohol intake: former Patient Tobacco Use Status: Never used Tobacco e-Cigarette/Vaping Use: Former Use Second Hand Smoke Exposure: No Substance Use Type: Former Substance User service: No Meds Allergies Allergy/AdvReac Type Severity Reaction Status Date / Time cephalexin [From Keflex] Allergy Severe HIVES Verified 08/15/23 19:19 clindamycin [Clindamycin] Allergy Severe HIVES Verified 08/15/23 19:19 doxycycline [Doxycycline] Allergy Severe HIVES Verified 08/15/23 19:19 erythromycin base Allergy Severe HIVES Verified 08/15/23 19:20 [Erythromycin Base] levofloxacin [From Levaquin] Allergy Severe THROAT Verified 08/15/23 19:19 TIGHTENS nitrofurantoin Allergy Severe HIVES Verified 08/15/23 19:19 [From Macrobid] Penicillins Allergy Severe HIVES Verified 08/15/23 19:19 aspirin Allergy Unknown Hives Verified 08/15/23 19:19 linezolid [From ZYVOX] Allergy Unknown UNKNOWN Verified 08/15/23 19:19 Sulfa (Sulfonamide Allergy Unknown HIVES Verified 08/15/23 19:19 Antibiotics) [SULFA (SULFONAMIDE ANTIBIOTICS)] sulfacetamide Allergy Unknown Hives Verified 08/15/23 19:19 Erythromycin Allergy Unknown Hives Uncoded 04/22/23 06:01 seafood/shellfish Allergy Unknown Facial Uncoded 04/22/23 06:01 Swelling Sulfacet-R Allergy Unknown Hives Uncoded 04/22/23 06:01 Home Medications Medication Instructions Recorded Confirmed Last Taken Type albuterol sulfate 2.5 mg/3 mL 2.5 mg inhalation Q4H PRN 08/03/23 08/15/23 Unknown History (0.083 %) solution for nebulization Shortness Of Breath Or Wheezing albuterol sulfate 90 mcg/actuation 2 puff inhalation Q4-6H PRN 08/03/23 08/15/23 Unknown History aerosol inhaler Shortness Of Breath Or Wheezing cholecalciferol (vitamin D3) 25 25 mcg PO DAILY 08/03/23 08/15/23 Unknown History mcg (1,000 unit) tablet clonazepam 1 mg tablet 1 mg PO BEDTIME PRN Anxiety 08/03/23 08/15/23 Unknown History ferrous sulfate 325 mg (65 mg 325 mg PO BID 08/03/23 08/15/23 Unknown History iron) tablet,delayed release fluticasone propionate 220 1 puff inhalation BID 08/03/23 08/15/23 Unknown History mcg/actuation HFA aerosol inhaler (Flovent HFA) montelukast 10 mg tablet 10 mg PO DAILY 08/03/23 08/15/23 Unknown History omeprazole 20 mg capsule,delayed 20 mg PO BID 08/03/23 08/15/23 Unknown History release tiotropium bromide 18 mcg capsule 1 cap inhalation DAILY 08/03/23 08/15/23 Unknown History with inhalation device (Spiriva with HandiHaler) zolpidem 5 mg tablet 5 mg PO BEDTIME PRN Insomnia 08/03/23 08/15/23 Unknown History Physical Exam Vital Signs and Narrative: Vital Signs: Last Vital Signs Temp 98.5 F 08/03/23 19:19 Pulse 108 H 08/03/23 22:25 Resp 19 08/03/23 22:25 BP 122/62 08/03/23 22:25 Pulse Ox 97 08/03/23 19:19 O2 Del Method Room Air 08/03/23 19:19 BMI result Body Mass Index 22.1 Results Labs 08/14/23 06:26 08/14/23 06:26 Labs: Laboratory Results - last 24 hr 08/03/23 08/03/23 08/03/23 18:25 18:26 18:28 MCV 93.0 MCH 29.5 MCHC 31.8 RDW 17.1 H Plt Count 224 D MPV 10.0 Immature Gran % (Auto) 0.5 H Neut % (Auto) 43.5 L Lymph % (Auto) 49.0 H [place] % (Auto) 6.2 Eos % (Auto) 0.3 Baso % (Auto) 0.5 Lymph # (Auto) 2.8 [place] # (Auto) 0.4 Eos # (Auto) 0.0 Baso # (Auto) 0.0 Abs Immat Gran (auto) 0.03 Absolute Neuts (auto) 2.5 Absolute Nucleated RBC 0.000 Nucleated RBC % (auto) 0.0 PT 11.7 INR 1.0 APTT 25.9 L VBG pH VBG pCO2 VBG pO2 VBG HCO3 VBG O2 Saturation VBG Base Excess Anion Gap 11 L Estim Creat Clear Calc 45.8 Estimated GFR 59 Random Glucose 124 H Lactic Acid 1.6 Calcium 7.6 L D Magnesium 1.3 L* Total Bilirubin 0.2 Direct Bilirubin < 0.2 AST 10 ALT 7 Alkaline Phosphatase 102 B-Natriuretic Peptide 98 Total Protein 6.3 L Albumin 2.0 L Stool Occult Blood Urine Opiates Screen Urine Fentanyl Screen Ur Barbiturates Screen Ur Phencyclidine Scrn Ur Amphetamines Screen U Benzodiazepines Scrn Urine Cocaine Screen U Marijuana (THC) Screen COVID-19 (MIKIE) COVID-19 Clin Com Blood Type AB Positive Antibody Screen NEGATIVE 08/03/23 08/03/23 08/03/23 18:29 18:33 19:18 MCV MCH MCHC RDW Plt Count MPV Immature Gran % (Auto) Neut % (Auto) Lymph % (Auto) [place] % (Auto) Eos % (Auto) Baso % (Auto) Lymph # (Auto) [place] # (Auto) Eos # (Auto) Baso # (Auto) Abs Immat Gran (auto) Absolute Neuts (auto) Absolute Nucleated RBC Nucleated RBC % (auto) PT INR APTT VBG pH 7.37 VBG pCO2 46 VBG pO2 38 VBG HCO3 26 VBG O2 Saturation 58.0 VBG Base Excess 1.2 Anion Gap Estim Creat Clear Calc Estimated GFR Random Glucose Lactic Acid Calcium Magnesium Total Bilirubin Direct Bilirubin AST ALT Alkaline Phosphatase B-Natriuretic Peptide Total Protein Albumin Stool Occult Blood POSITIVE Urine Opiates Screen Not Detected Urine Fentanyl Screen POSITIVE H Ur Barbiturates Screen Not Detected Ur Phencyclidine Scrn Not Detected Ur Amphetamines Screen Not Detected U Benzodiazepines Scrn Not Detected Urine Cocaine Screen Not Detected U Marijuana (THC) Screen Not Detected COVID-19 (MIKIE) Negative COVID-19 Clin Com See Note Blood Type Antibody Screen Imaging Radiologist's Impressions: Impressions Chest X-Ray 08/03/23 18:55 IMPRESSION: No evidence of acute disease. Assessment and Plan (1) Pneumonia: Qualifiers: Pneumonia type: due to unspecified organism Laterality: right Lung location: middle lobe of lung Qualified Code(s): J18.9 - Pneumonia, unspecified organism Status: Acute Plan 73-year-old woman with a past medical history of COPD, hepatitis C, IV drug use, history of MRSA abscesses, history of osteomyelitis of the humerus, clavicle and scapula with MSSA bacteremia in of 2022 and was treated with joint terminal attack controller Abx at [facility]. She has chronic anemia baseline hematocrit from reviewing record at [facility] is 26 which is essentially unchanged. Pt reportedly had lab work done today and was told by PCP to come to the ED. Blood count here show hemoglobin of 8 and hematocrit 26. Anemia and +occult blood--anemia is chronic with stable H/H, +occult blood is likely also positive. There is no indication for transfusion. Observe and repeat H/H in the morning. Hold the Eliquis that was prescribed today. Transfuse if hemoglobin < 7. Gi consult History of drug use, tox screen is positive for fentanyl Decub ulcers, present on admission, wound care nurse to assess Pt states she was supposed to start taking eliquis 2.5 mg twice daily, reason unclear but at any event been hold d/t anemia, check with PCP I could not identify record here or [facility] to support use of anticoagulation DVT prophylaxis, device, full code obs Quality Stroke Does the patient have a stroke diagnosis?: No VTE Prior VTE?: No VTE Risk Level:: Medical - moderate - high VTE Device Contraindication: N/A - Device Ordered VTE Drug Contraindication: Treatment Not Tolerated
[2023-08-03] MEDS: 0.9 % Sodium Chloride Flush 3 ML SYRINGE IVFLUSH (23:53)
[2023-08-04] VITALS (11 sets, daily range): BP systolic 102–155; BP diastolic 63–76; PULSE 79–100; RESP 16–20; TEMP 36.1–37; O2SAT 97–100; BMI 18.1
--- NOTE | 2023-08-04 00:17 | PC.NURSE ---
nurse- nurse report given
[2023-08-04] MEDS: traMADoL HCL 50 MG TABLET PO ×3 (01:31→18:12)
[2023-08-04] MEDS: Albuterol Sulfate (0.083%) 2.5 MG/3 ML VIAL.NEB INHALE (01:48)
[2023-08-04 08:20] LABS: Hematocrit 22.6 % (37.0-47.0); Hemoglobin 7.4 g/dl (12.0-16.0); Mean Corpuscular HGB Conc 32.7 g/dl (31.0-35.0); Mean Corpuscular Hemoglobin 29.6 pg (27.0-33.0); Mean Corpuscular Volume 90.4 fL (80.0-98.0); Mean Platelet Volume 10.2 fL (9.4-12.3); Platelet Count 153 X10*3/uL (160-400); Red Cell Distribution Width 16.7 % (11.0-16.0); White Blood Count 3.9 X10*3/uL (4.8-10.8)
[2023-08-04] MEDS: Magnesium Sulfate/H2O 2 GM/50 ML PIGGYBACK IV (09:26)
[2023-08-04] MEDS: 0.9 % Sodium Chloride Flush 3 ML SYRINGE IVFLUSH (09:26)
--- NOTE | 2023-08-04 10:46 | P.CNGI_ITS ---
History of Present Illness Data of Consult Service Date: 08/04/23 Requesting physician: Walker Gillespie Primary Care Provider: Karla Ceballos MD HPI Reason for consult: Gastrointestinal bleeding, anemia 73 YF with asthma, COPD, depression/anxiety, hx hepatitis C, hx IVDA, legally blind, chronic bilateral arm wounds, reportedly MRSA with several antibiotic allergies, history of?MRSA abscesses,?history of C diff, history E. coli colitis, osteomyelitis of the humerus, clavicle, and scapula with MSSA bacteremia in June 2023 and was treated with intermediate manager Abx?at [facility]. Pt denies past hx of PUD or overt GI bleeding. She denies symptoms of heartburn, dysphagia, nausea, vomiting, black stools or blood in the stool. Patient denies any recent change in appetite or weight. She gives history of diarrhea related to C diff in the past which has subsided after treatment. Patient denies smoking or EtOH abuse and denies IV drug use (of note urine drug screen was positive for Fentanyl) Pt reports being treated for hepatitis-C in the past with oral medications. She denies a history of loud snoring was sleep apnea. Patient reports having an EGD and a colonoscopy 3 years ago (? at [facility]) which was negative per patient. Patient denies known family history of colon cancer or polyps. Patient lives with a roommate and her HAND STONE POLISHER lives next door to her and is available to drive her to appointments. 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 Pt?reportedly had lab work done on 08/03/23 and was advised by her PCP to come to the ED. Labs at [facility] showed H & H of 8.8 & 27.7, repeat labs last night showed H & H of 8.3 & 26.7 and 7.4 & 22.6 morning of 08/04/23. Stool occult blood was positive Order has been placed for transfusion of 2 U PRBC Pt reported she was prescribed eliquis 2.5 bid by her PCP (? for blood clots in her legs) and has not started taking it yet Review of Systems 2 Review of Systems: Gen: no fever Resp: no sob, no cough CV: no chest, no LEDBETTER, no leg edema GI: No n/v, no abd pain, occult blood + Neuro: No confusion PMFSH Past Medical History Medical History (Updated 08/08/23 @ 16:15 by Sheila Bailey MD) Bacteremia Chronic anemia MRSA cellulitis Asthma Legally blind Social History Social History Household Members: None Housing: Homeless Do you presently have visiting nurse or other home services: No Unable to assess alcohol history related to: Unknown Alcohol intake: never Patient Tobacco Use Status: Never used Tobacco Smoked in Last 30 Days: No e-Cigarette/Vaping Use: Former Use Patient Interested in Nicotine Replacement: No Patient Given Instructions on How to Stop Smoking: No Second Hand Smoke Exposure: No Use of substances other than those prescribed or required for medical reasons: No Last Used Substance: Just Prior to Admission Last Used Substance Other:: denies, but tested positive for fentanyl Currently Displaying Signs/Symptoms of Drug Intoxication Withdrawal: No Any prior treatment program specific to substance use: Yes Have you been hit, kicked, punched, or otherwise hurt by someone within the past year? If so, by whom?: No Do you feel safe in your current relationship?: No Is there a partner from a previous relationship who is making you feel unsafe now?: No Are you made to feel afraid or neglected: No Are you DNR?: No Advance Directives: No Advance Directives Information Provided: No Advance Directives on File: No Do you have thoughts of harming others: None Do you have a plan to hurt others: No Plan Recently lost weight without trying: No Eating poorly because of decreased appetite: No Nutrition Risks: No Nutritional Risk Patient : No : No Poor oral hygiene: Yes service: No Meds Allergies Allergy/AdvReac Type Severity Reaction Status Date / Time cephalexin [From Keflex] Allergy Severe HIVES Verified 04/22/23 06:01 clindamycin [Clindamycin] Allergy Severe HIVES Verified 04/22/23 06:01 doxycycline [Doxycycline] Allergy Severe HIVES Verified 04/22/23 06:01 erythromycin base Allergy Severe HIVES Verified 04/22/23 06:01 [Erythromycin Base] levofloxacin [From Levaquin] Allergy Severe THROAT Verified 04/22/23 06:01 TIGHTENS nitrofurantoin Allergy Severe HIVES Verified 04/22/23 06:01 [From Macrobid] Penicillins Allergy Severe HIVES Verified 04/22/23 06:01 aspirin Allergy Unknown Hives Verified 04/22/23 06:01 linezolid [From ZYVOX] Allergy Unknown UNKNOWN Verified 04/22/23 06:01 Sulfa (Sulfonamide Allergy Unknown HIVES Verified 04/22/23 06:01 Antibiotics) [SULFA (SULFONAMIDE ANTIBIOTICS)] sulfacetamide Allergy Unknown Hives Verified 04/22/23 06:01 Erythromycin Allergy Unknown Hives Uncoded 04/22/23 06:01 seafood/shellfish Allergy Unknown Facial Uncoded 04/22/23 06:01 Swelling Sulfacet-R Allergy Unknown Hives Uncoded 04/22/23 06:01 Active Medications: Current Medications Acetaminophen (Acetaminophen 325 Mg Tablet) 650 mg PO Q6H PRN PRN Reason: Pain, Mild (Pain Scale 1-3) Albuterol Sulfate (Albuterol Sulfate (0.083%) 2.5 Mg/3 Ml Vial.Neb) 2.5 mg INHALE Q4H PRN PRN Reason: Shortness Of Breath Or Wheezing Last Admin: 08/04/23 01:48 Dose: 2.5 mg Albuterol Sulfate (Albuterol Sulfate 90 Mcg 8 Gm Inhaler) 2 puff INHALE Q4H PRN PRN Reason: Shortness Of Breath Or Wheezing Clonazepam (Clonazepam 1 Mg Tablet) 1 mg PO BEDTIME PRN PRN Reason: Anxiety Ferrous Sulfate (Ferrous Sulfate 324 Mg Tablet.Dr) 324 mg PO BID GETACHEW Fluticasone Propionate (Fluticasone Propionate 250 Mcg Blst.W.Dev) 1 puff INHALE RBID GETACHEW Last Admin: 08/04/23 08:14 Dose: Not Given Magnesium Sulfate (Magnesium Sulfate/H2o) 2 gm in 50 mls @ 25 mls/hr IV ONCE ONE Stop: 08/04/23 11:03 Last Admin: 08/04/23 09:26 Dose: 25 mls/hr Melatonin (Melatonin 3 Mg Tablet) 6 mg PO BEDTIME PRN PRN Reason: Insomnia Montelukast Sodium (Montelukast Sodium 10 Mg Tablet) 10 mg PO DAILY [facility] Omeprazole (Omeprazole 20 Mg Capsule.Dr) 20 mg PO BID [facility] Ondansetron HCl (Ondansetron Hcl 4 Mg/2 Ml Vial) 4 mg IVPUSH Q8H PRN PRN Reason: Nausea and Vomiting Sodium Chloride (0.9 % Sodium Chloride Flush 3 Ml Syringe) 3 ml IVFLUSH QSHIFT [facility] Last Admin: 08/04/23 09:26 Dose: 3 ml Tiotropium [place] (Tiotropium [place] 2.5 Mcg Inhaler) 2 puff INHALE DAILY [facility] Last Admin: 08/04/23 08:14 Dose: Not Given Tramadol HCl (Tramadol Hcl 50 Mg Tablet) 50 mg PO Q8H PRN PRN Reason: Pain, Severe (Pain Scale 7-10) Last Admin: 08/04/23 01:31 Dose: 50 mg Vitamin D (Cholecalciferol (Vitamin D3) 25 Mcg Tablet) 25 mcg PO DAILY [facility] Zolpidem Tartrate (Zolpidem Tartrate 5 Mg Tablet) 5 mg PO BEDTIME PRN PRN Reason: Insomnia Home Medications Medication Instructions Recorded Confirmed Last Taken Type albuterol sulfate 2.5 mg/3 mL 2.5 mg inhalation Q4H PRN 08/03/23 08/03/23 Unknown History (0.083 %) solution for nebulization Shortness Of Breath Or Wheezing albuterol sulfate 90 mcg/actuation 2 puff inhalation Q4-6H PRN 08/03/23 08/03/23 Unknown History aerosol inhaler Shortness Of Breath Or Wheezing apixaban 2.5 mg tablet (Eliquis) 2.5 mg PO BID 08/03/23 Unknown History cholecalciferol (vitamin D3) 25 25 mcg PO DAILY 08/03/23 08/03/23 Unknown History mcg (1,000 unit) tablet clonazepam 1 mg tablet 1 mg PO BEDTIME PRN Anxiety 08/03/23 08/03/23 Unknown History ferrous sulfate 325 mg (65 mg 325 mg PO BID 08/03/23 08/03/23 Unknown History iron) tablet,delayed release fluticasone propionate 220 1 puff inhalation BID 08/03/23 08/03/23 Unknown History mcg/actuation HFA aerosol inhaler (Flovent HFA) ibuprofen 600 mg tablet 600 mg PO TID PRN pain 08/03/23 08/03/23 Unknown History montelukast 10 mg tablet 10 mg PO DAILY 08/03/23 08/03/23 Unknown History omeprazole 20 mg capsule,delayed 20 mg PO BID 08/03/23 08/03/23 Unknown History release tiotropium bromide 18 mcg capsule 1 cap inhalation DAILY 08/03/23 08/03/23 Unknown History with inhalation device (Spiriva with HandiHaler) zolpidem 5 mg tablet 5 mg PO BEDTIME PRN Insomnia 08/03/23 08/03/23 Unknown History Physical Exam 2 Vital Signs: Vital Signs: Last Vital Signs Temp 98.0 F 08/04/23 07:45 Pulse 82 08/04/23 07:45 Resp 18 08/04/23 07:45 BP 144/63 H 08/04/23 07:45 Pulse Ox 99 08/04/23 07:45 O2 Del Method Room Air 08/04/23 07:45 BMI result Body Mass Index 18.1 Const: General: no acute distress Nutritional Appearance: underweight O rientation/consciousness: patient oriented x3 Limitations: no limitations HEENT: Head: Yes normal to inspection Ears: hearing grossly normal bilaterally Eyes: Other: Right ryr blindness Neck: Neck: Yes normal visual inspection Chest: Chest palpation & inspection: normal inspection of the chest Resp: Effort & Inspection: normal respiratory effort Auscultation: clear to auscultation bilaterally Cardio: Palpation: normal PMI Rate: regular rate Rhythm: regular rhythm Heart sounds: S1 normal heart sound present, S2 normal heart sound present and no murmurs GI: Palpation (GI): Soft to palpation, nontender and No hepatosplenomegaly present Auscultation: normal bowel sounds Rectal Exam - Female: deferred Skin: General skin exam: no rashes or lesions noted Neuro: General: patient oriented x3, gait normal and moves all extremities Extrem: General: Yes other (Bilateral upper extremity the forearms show multiple scars & chronic wound) Psych: Appearance: grossly normal Mental Status: mental status grossly normal Results Labs 08/08/23 05:48 08/08/23 05:48 Labs: Short CBC 08/03/23 08/03/23 08/03/23 Range/Units 18:28 20:57 21:31 WBC 5.8 (4.8-10.8) X10*3/uL Hgb 8.8 L 6.9 L* D 8.3 L D (12.0-16.0) g/dl Hct 27.7 L 21.8 L D 26.7 L D (37.0-47.0) % Plt Count 224 D (160-400) X10*3/uL 08/04/23 Range/Units 07:57 WBC 3.9 L (4.8-10.8) X10*3/uL Hgb 7.4 L (12.0-16.0) g/dl Hct 22.6 L (37.0-47.0) % Plt Count 153 L D (160-400) X10*3/uL BMP 08/03/23 18:25 Sodium 137 Potassium 4.0 Chloride 107 Carbon Dioxide 23 BUN 23 H Creatinine 0.93 Calcium 7.6 L D Liver Function 08/03/23 Range/Units 18:25 Total Bilirubin 0.2 (0.0-1.0) mg/dL Direct Bilirubin < 0.2 (0.0-0.5) mg/dL AST 10 (5-31) U/L ALT 7 (0-31) U/L Alkaline Phosphatase 102 (39-117) U/L Albumin 2.0 L (3.5-5.0) g/dL Assessment and Plan (1) Anemia: Status: Acute (2) Heme positive stool: Status: Acute Plan 73 YF with asthma, COPD, depression/anxiety, hx hepatitis C, hx IVDA, legally blind, chronic bilateral arm wounds, reportedly MRSA with several antibiotic allergies, history of?MRSA abscesses,?history of C diff, history E. coli colitis, osteomyelitis of the humerus, clavicle, and scapula with MSSA bacteremia in June 2023 and was treated with custodial Abx?at [facility]. Pt denies past hx of PUD or overt GI bleeding. Pt has chronic normocytic normochromic anemia; baseline hematocrit?from reviewing records at [facility] is 26, which is essentially unchanged. She has been evaluated at [facility] with an EGD and Colon in the past (per pt colon was performed 3 years ago) - I will obtain records. Pt?reportedly had lab work done on 08/03/23 and was advised by her PCP to come to the ED. Labs at [facility] showed H & H of 8.8 & 27.7, repeat labs last night showed H & H of 8.3 & 26.7 and 7.4 & 22.6 morning of 08/04/23. Stool occult blood was positive. Order has been placed for transfusion of 2 U PRBC Anemia is likely multifactorial - nutritional, chronic bilateral arm wounds with possible slow GI blood loss RECOMMENDATIONS: 1. Agree with PO Omeprazole twice daily 2. Check iron studies and ferritin 3. I will schedule an EGD on 08/05/23 - scheduled at 12 pm. Ok to resume regular diet today and make NPO after midnight tonight for EGD tomorrow Procedures Date of Service Date of Service: 08/08/23
[2023-08-04] MEDS: Montelukast Sodium 10 MG TABLET PO (11:37)
[2023-08-04] MEDS: Ferrous Sulfate 324 MG TABLET.DR PO ×2 (11:37→20:48)
[2023-08-04] MEDS: Omeprazole 20 MG CAPSULE.DR PO ×3 (11:37→20:40)
[2023-08-04] MEDS: Cholecalciferol (Vitamin D3) 25 MCG TABLET PO (11:37)
[2023-08-04] MEDS: Furosemide 20 MG/2 ML VIAL IVPUSH (11:38)
--- NOTE | 2023-08-04 13:44 | HO.PM.IMPN ---
Subjective Subjective Date of Service: 08/04/23 Interval History: No acute issues overnight. No active bleeding. Patient hungry this morning Review of Systems Denies chest pain Denies shortness of breath Denies nausea vomiting diarrhea Denies fever chills Physical Exam Vital Signs: Vital Signs: Last Vital Signs Temp 97.1 F 08/04/23 12:30 Pulse 79 08/04/23 12:30 Resp 16 08/04/23 12:30 BP 137/65 08/04/23 12:30 Pulse Ox 98 08/04/23 11:09 O2 Del Method Room Air 08/04/23 11:09 BMI result Body Mass Index 18.1 Const: Other: Awake alert no acute distress Resp: Other: Clear to auscultation bilaterally no rales rhonchi wheezes Cardio: Other: No S4; positive S1-S2; no S3 murmurs rubs or gallops GI: Other: Soft nontender nondistended normoactive bowel sounds Extrem: Other: No edema bilaterally Objective Data Active Medications Acetaminophen (Acetaminophen 325 Mg Tablet) 650 mg PO Q6H PRN PRN Reason: Pain, Mild (Pain Scale 1-3) Albuterol Sulfate (Albuterol Sulfate (0.083%) 2.5 Mg/3 Ml Vial.Neb) 2.5 mg INHALE Q4H PRN PRN Reason: Shortness Of Breath Or Wheezing Last Admin: 08/04/23 01:48 Dose: 2.5 mg Documented By: NADINE Albuterol Sulfate (Albuterol Sulfate 90 Mcg 8 Gm Inhaler) 2 puff INHALE Q4H PRN PRN Reason: Shortness Of Breath Or Wheezing Clonazepam (Clonazepam 1 Mg Tablet) 1 mg PO BEDTIME PRN PRN Reason: Anxiety Ferrous Sulfate (Ferrous Sulfate 324 Mg Tablet.) 324 mg PO BID [facility] Last Admin: 08/04/23 11:37 Dose: 324 mg Documented By: ANDREA Fluticasone Propionate (Fluticasone Propionate 250 Mcg Blst.W.Dev) 1 puff INHALE RBID [facility] Last Admin: 08/04/23 08:14 Dose: Not Given Documented By: WILFRID Non-Admin Reason: Med Not Available Melatonin (Melatonin 3 Mg Tablet) 6 mg PO BEDTIME PRN PRN Reason: Insomnia Montelukast Sodium (Montelukast Sodium 10 Mg Tablet) 10 mg PO DAILY [facility] Last Admin: 08/04/23 11:37 Dose: 10 mg Documented By: ANDREA Omeprazole (Omeprazole 20 Mg Capsule.) 20 mg PO BID [facility] Last Admin: 08/04/23 11:37 Dose: 20 mg Documented By: ANDREA Ondansetron HCl (Ondansetron Hcl 4 Mg/2 Ml Vial) 4 mg IVPUSH Q8H PRN PRN Reason: Nausea and Vomiting Sodium Chloride (0.9 % Sodium Chloride Flush 3 Ml Syringe) 3 ml IVFLUSH QSHIFT [facility] Last Admin: 08/04/23 09:26 Dose: 3 ml Documented By: ANDREA Tiotropium [place] (Tiotropium [place] 2.5 Mcg Inhaler) 2 puff INHALE DAILY [facility] Last Admin: 08/04/23 08:14 Dose: Not Given Documented By: WILFRID Non-Admin Reason: Med Not Available Tramadol HCl (Tramadol Hcl 50 Mg Tablet) 50 mg PO Q8H PRN PRN Reason: Pain, Severe (Pain Scale 7-10) Last Admin: 08/04/23 09:00 Dose: 50 mg Documented By: ANDREA Vitamin D (Cholecalciferol (Vitamin D3) 25 Mcg Tablet) 25 mcg PO DAILY [facility] Last Admin: 08/04/23 11:37 Dose: 25 mcg Documented By: ANDREA Zolpidem Tartrate (Zolpidem Tartrate 5 Mg Tablet) 5 mg PO BEDTIME PRN PRN Reason: Insomnia Labs 08/04/23 07:57 08/03/23 18:25 Labs: Laboratory Results - last 24 hr 08/03/23 08/03/23 08/03/23 18:25 18:26 18:28 MCV 93.0 MCH 29.5 MCHC 31.8 RDW 17.1 H Plt Count 224 D MPV 10.0 Immature Gran % (Auto) 0.5 H Neut % (Auto) 43.5 L Lymph % (Auto) 49.0 H [place] % (Auto) 6.2 Eos % (Auto) 0.3 Baso % (Auto) 0.5 Lymph # (Auto) 2.8 [place] # (Auto) 0.4 Eos # (Auto) 0.0 Baso # (Auto) 0.0 Abs Immat Gran (auto) 0.03 Absolute Neuts (auto) 2.5 Absolute Nucleated RBC 0.000 Nucleated RBC % (auto) 0.0 PT 11.7 INR 1.0 APTT 25.9 L VBG pH VBG pCO2 VBG pO2 VBG HCO3 VBG O2 Saturation VBG Base Excess Anion Gap 11 L Estim Creat Clear Calc 45.8 Estimated GFR 59 Random Glucose 124 H Lactic Acid 1.6 Calcium 7.6 L D Magnesium 1.3 L* Total Bilirubin 0.2 Direct Bilirubin < 0.2 AST 10 ALT 7 Alkaline Phosphatase 102 B-Natriuretic Peptide 98 Total Protein 6.3 L Albumin 2.0 L Stool Occult Blood Urine Opiates Screen Urine Fentanyl Screen Ur Barbiturates Screen Ur Phencyclidine Scrn Ur Amphetamines Screen U Benzodiazepines Scrn Urine Cocaine Screen U Marijuana (THC) Screen COVID-19 (MIKIE) COVID-19 Clin Com Blood Type AB Positive Antibody Screen NEGATIVE Crossmatch See Detail 08/03/23 08/03/23 08/03/23 18:29 18:33 19:18 MCV MCH MCHC RDW Plt Count MPV Immature Gran % (Auto) Neut % (Auto) Lymph % (Auto) [place] % (Auto) Eos % (Auto) Baso % (Auto) Lymph # (Auto) [place] # (Auto) Eos # (Auto) Baso # (Auto) Abs Immat Gran (auto) Absolute Neuts (auto) Absolute Nucleated RBC Nucleated RBC % (auto) PT INR APTT VBG pH 7.37 VBG pCO2 46 VBG pO2 38 VBG HCO3 26 VBG O2 Saturation 58.0 VBG Base Excess 1.2 Anion Gap Estim Creat Clear Calc Estimated GFR Random Glucose Lactic Acid Calcium Magnesium Total Bilirubin Direct Bilirubin AST ALT Alkaline Phosphatase B-Natriuretic Peptide Total Protein Albumin Stool Occult Blood POSITIVE Urine Opiates Screen Not Detected Urine Fentanyl Screen POSITIVE H Ur Barbiturates Screen Not Detected Ur Phencyclidine Scrn Not Detected Ur Amphetamines Screen Not Detected U Benzodiazepines Scrn Not Detected Urine Cocaine Screen Not Detected U Marijuana (THC) Screen Not Detected COVID-19 (MIKIE) Negative COVID-19 Clin Com See Note Blood Type Antibody Screen Crossmatch 08/04/23 07:57 MCV 90.4 MCH 29.6 MCHC 32.7 RDW 16.7 H Plt Count 153 L D MPV 10.2 Immature Gran % (Auto) Neut % (Auto) Lymph % (Auto) [place] % (Auto) Eos % (Auto) Baso % (Auto) Lymph # (Auto) [place] # (Auto) Eos # (Auto) Baso # (Auto) Abs Immat Gran (auto) Absolute Neuts (auto) Absolute Nucleated RBC 0.000 Nucleated RBC % (auto) 0.0 PT INR APTT VBG pH VBG pCO2 VBG pO2 VBG HCO3 VBG O2 Saturation VBG Base Excess Anion Gap Estim Creat Clear Calc Estimated GFR Random Glucose Lactic Acid Calcium Magnesium Total Bilirubin Direct Bilirubin AST ALT Alkaline Phosphatase B-Natriuretic Peptide Total Protein Albumin Stool Occult Blood Urine Opiates Screen Urine Fentanyl Screen Ur Barbiturates Screen Ur Phencyclidine Scrn Ur Amphetamines Screen U Benzodiazepines Scrn Urine Cocaine Screen U Marijuana (THC) Screen COVID-19 (MIKIE) COVID-19 Clin Com Blood Type Antibody Screen Crossmatch Assessment and Plan (1) GI bleed: Status: Acute (2) Anemia: Status: Acute (3) Hypomagnesemia: Status: Acute Plan 73-year-old woman with a past medical history of COPD, hepatitis C, IV drug use, history of MRSA abscesses, history of osteomyelitis of the humerus, clavicle and scapula with MSSA bacteremia in [facility] of 2022 and was treated with terminal computer operator Abx at [facility]. She has chronic anemia baseline hematocrit from reviewing record at [facility] is 26 which is essentially unchanged. Pt reportedly had lab work done today and was told by PCP to come to the ED. Blood count here show hemoglobin of 8 and hematocrit 26. No active bleeding overnight !.?GIB -no active bleeding overnight -seen by GI; will keep NPO after midnight for possible scope in a.m. -advance diet today 2. Anemia -transfuse given hemoglobin of 7.4 -follow CBC 3. Hypo magnesemia -repleted -follow-up clinically Full code Boots Requires ongoing hospitalization for blood transfusion and possible EGD in a.m. Quality Stroke Does the patient have a stroke diagnosis?: No VTE Prior VTE?: No VTE Risk Level:: Medical - moderate - high VTE Device Contraindication: N/A - Device Ordered VTE Drug Contraindication: Treatment Not Tolerated
--- NOTE | 2023-08-04 15:19 | MHC.CM.PN ---
Addendum entered by Haydee Mendoza, RN 08/04/23 15:46: DUE TO PT'S DRUG USE, REFERRAL TO BE PLACED TO [facility] [place], [facility] DIONICIO Original Note: SID 08/04/23, EMR REVIEWED, CM MET W/PT WHO KYRGYZ SPEAKING, A&O AND LEGALLY BLIND, PT IS VERY ANXIOUS AND REPORTS SHE IS NOW HOMELESS SHE WAS STAYING W/A FRIEND WHO IS ON HOUSING AND NOW BEING EVICTED, PT REPORTS HER HCP MARLON [phone] IS LOOKING INTO HOUSING FOR PT HOWEVER UNSURE HOW LONG THAT WILL TAKE. PT REPORTS SHE HAS A CANE THAT SHE GOT FROM THE [employer] [employer] HOWEVER TYPICALLY WALKS AROUND WITH NOTHING, PT REPORTING SHE NEEDS WOUND CARE/VNA/PT HOWEVER IS CONCERNED SHE HAS NO WHERE TO GO. CM HAS REQUESTED A PT EVAL TO SEE IF PT WILL QUALIFY FOR STR. PT VERIFIES PCP IS MARLON ELLER AND COPY OF HCP REQUESTED.
--- NOTE | 2023-08-04 15:37 | PC.NURSE ---
Addendum entered by Jazmin Patel RN 08/04/23 15:54: Per provider; Kush Braxton, central line to be placed tomorrow, hold on blood at this time Original Note: Pt alert and oriented, able to answer questions appropriately. PT required 2 units PRBC, 125ml infused from first bag and PT only IV site started bleeding during infusion. PT is a difficult stick with her HX of MRSA abscess, staff writer were unsuccessful at inserting new IV placement. PT does have some bruising around neck where IV site was. Physician, blood bank notified. PT remains in bed this shift. PT diet advanced to regular, tolerated well. PT to be NPO at midnight for potential scan tomorrow.
[2023-08-04] MEDS: Fluticasone Propionate 250 MCG BLST.W.DEV 1 PUFF INHALE (19:30)
[2023-08-04] MEDS: clonazePAM 1 MG TABLET PO (20:41)
[2023-08-04] MEDS: Acetaminophen 325 MG TABLET 650 MG PO (20:42)
[2023-08-05] VITALS (15 sets, daily range): BP systolic 119–147; BP diastolic 52–85; PULSE 86–102; RESP 16–22; TEMP 36.1–37.1; O2SAT 96–98
[2023-08-05] MEDS: traMADoL HCL 50 MG TABLET PO ×3 (01:13→18:25)
[2023-08-05] MEDS: Fluticasone Propionate 250 MCG BLST.W.DEV 1 PUFF INHALE (07:04)
[2023-08-05 07:59] LABS: MANUAL DIFF FLAG NO
[2023-08-05 08:03] LABS: Basophils Percent Auto 0.3 % (0-2); Eosinophils Percent Auto 0.1 % (0-4); Hemoglobin 7.2 g/dl (12.0-16.0); Imm Gran Abs Auto 0.06 X10*3/uL (0.00-0.03); Imm Gran Pct Auto 0.8 % (0.0-0.4); Lymphocytes Absolute Auto 1.9 X10*3/uL (1.2-4.9); Lymphocytes Percent Auto 25.1 % (20-40); Mean Corpuscular HGB Conc 32.7 g/dl (31.0-35.0); Mean Corpuscular Hemoglobin 29.9 pg (27.0-33.0); Mean Corpuscular Volume 91.3 fL (80.0-98.0); Mean Platelet Volume 10.5 fL (9.4-12.3); Monocytes Absolute Auto 0.5 X10*3/uL (0.1-1.2); Monocytes Percent Auto 7.3 % (2-11); Neutrophils Absolute Auto 4.9 x10*3/uL (2.0-8.3); Neutrophils Percent Auto 66.4 % (45-73); PLT CLUMP 1; Red Blood Count 2.41 X10*6/uL (4.20-5.50); Red Cell Distribution Width 17.2 % (11.0-16.0); SCAN SMEAR FLAG 1
[2023-08-05 08:04] LABS: Platelet Count 181 X10*3/uL (160-400); White Blood Count 7.4 X10*3/uL (4.8-10.8)
[2023-08-05] MEDS: Cholecalciferol (Vitamin D3) 25 MCG TABLET PO (08:15)
[2023-08-05] MEDS: Montelukast Sodium 10 MG TABLET PO (08:15)
[2023-08-05] MEDS: Ferrous Sulfate 324 MG TABLET.DR PO ×2 (08:16→22:26)
[2023-08-05] MEDS: Omeprazole 20 MG CAPSULE.DR PO ×2 (08:16→22:26)
[2023-08-05 08:26] LABS: Alanine Aminotransferase 7 U/L (0-31); Alkaline Phosphatase 89 U/L (39-117); Anion Gap 11 (12-20); Aspartate Amino Transferase 8 U/L (5-31); Bilirubin Total 0.2 mg/dL (0.0-1.0); Blood Urea Nitrogen 25 mg/dL (9-16); Calcium 7.9 mg/dL (8.4-10.2); Carbon Dioxide 20 mmol/L (22-29); Chloride 108 mmol/L (96-108); Creatinine Clr Calc Pharmacy 47.7; Estimated Glomerular Filt Rate > 60; Glucose Random 82 mg/dL (60-115); Potassium 4.5 mmol/L (3.3-5.1); Sodium 134 mmol/L (135-145); Total Protein 5.8 g/dL (6.5-8.0)
--- NOTE | 2023-08-05 11:21 | P.PNIM_ITS ---
Subjective Subjective Date of Service: 08/05/23 Interval History: Two bloody bowel movements overnight per nursing staff. Remains hemodynamically stable; hemoglobin stable Review of Systems Denies chest pain Denies shortness of breath Denies nausea vomiting diarrhea Denies fever chills Physical Exam 2 Vital Signs: Vital Signs: Last Vital Signs Temp 97 F 08/05/23 10:53 Pulse 92 08/05/23 10:53 Resp 17 08/05/23 10:53 BP 137/77 08/05/23 10:53 Pulse Ox 96 08/05/23 10:53 O2 Del Method Room Air 08/05/23 10:53 BMI result Body Mass Index 18.1 Const: Other: Awake alert no acute distress Resp: Other: Clear to auscultation bilaterally no rales rhonchi wheezes Cardio: Other: No S4; positive S1-S2; no S3 murmurs rubs or gallops GI: Other: Soft nontender nondistended normoactive bowel sounds Extrem: Other: No edema bilaterally Objective Data Active Medications Acetaminophen (Acetaminophen 325 Mg Tablet) 650 mg PO Q6H PRN PRN Reason: Pain, Mild (Pain Scale 1-3) Last Admin: 08/04/23 20:42 Dose: 650 mg Documented By: STUART Albuterol Sulfate (Albuterol Sulfate (0.083%) 2.5 Mg/3 Ml Vial.Neb) 2.5 mg INHALE Q4H PRN PRN Reason: Shortness Of Breath Or Wheezing Last Admin: 08/04/23 01:48 Dose: 2.5 mg Documented By: NADINE Albuterol Sulfate (Albuterol Sulfate 90 Mcg 8 Gm Inhaler) 2 puff INHALE Q4H PRN PRN Reason: Shortness Of Breath Or Wheezing Clonazepam (Clonazepam 1 Mg Tablet) 1 mg PO BEDTIME PRN PRN Reason: Anxiety Last Admin: 08/04/23 20:41 Dose: 1 mg Documented By: STUART Ferrous Sulfate (Ferrous Sulfate 324 Mg Tablet.) 324 mg PO BID [facility] Last Admin: 08/05/23 08:16 Dose: 324 mg Documented By: ANDREA Fluticasone Propionate (Fluticasone Propionate 250 Mcg Blst.W.Dev) 1 puff INHALE RBID [facility] Last Admin: 08/05/23 07:04 Dose: 1 puff Documented By: EMMETT Melatonin (Melatonin 3 Mg Tablet) 6 mg PO BEDTIME PRN PRN Reason: Insomnia Montelukast Sodium (Montelukast Sodium 10 Mg Tablet) 10 mg PO DAILY [facility] Last Admin: 08/05/23 08:15 Dose: 10 mg Documented By: ANDREA Omeprazole (Omeprazole 20 Mg Capsule.Dr) 20 mg PO BID [facility] Last Admin: 08/05/23 08:16 Dose: 20 mg Documented By: ANDREA Ondansetron HCl (Ondansetron Hcl 4 Mg/2 Ml Vial) 4 mg IVPUSH Q8H PRN PRN Reason: Nausea and Vomiting Sodium Chloride (0.9 % Sodium Chloride Flush 3 Ml Syringe) 3 ml IVFLUSH QSHIFT [facility] Last Admin: 08/05/23 10:36 Dose: Not Given Documented By: ANDREA Non-Admin Reason: No Access Tiotropium [place] (Tiotropium [place] 2.5 Mcg Inhaler) 2 puff INHALE DAILY [facility] Last Admin: 08/05/23 07:04 Dose: 2 puff Documented By: EMMETT Tramadol HCl (Tramadol Hcl 50 Mg Tablet) 50 mg PO Q8H PRN PRN Reason: Pain, Severe (Pain Scale 7-10) Last Admin: 08/05/23 08:15 Dose: 50 mg Documented By: ANDREA Vitamin D (Cholecalciferol (Vitamin D3) 25 Mcg Tablet) 25 mcg PO DAILY [facility] Last Admin: 08/05/23 08:15 Dose: 25 mcg Documented By: ANDREA Zolpidem Tartrate (Zolpidem Tartrate 5 Mg Tablet) 5 mg PO BEDTIME PRN PRN Reason: Insomnia Labs 08/05/23 07:41 08/05/23 07:41 Labs: Laboratory Results - last 24 hr 08/03/23 08/05/23 18:25 07:41 MCV 91.3 MCH 29.9 MCHC 32.7 RDW 17.2 H Plt Count 181 MPV 10.5 Immature Gran % (Auto) 0.8 H Neut % (Auto) 66.4 Lymph % (Auto) 25.1 [place] % (Auto) 7.3 Eos % (Auto) 0.1 Baso % (Auto) 0.3 Lymph # (Auto) 1.9 [place] # (Auto) 0.5 Eos # (Auto) 0.0 Baso # (Auto) 0.0 Abs Immat Gran (auto) 0.06 H Absolute Neuts (auto) 4.9 Absolute Nucleated RBC 0.000 Nucleated RBC % (auto) 0.0 Anion Gap 11 L Estim Creat Clear Calc 47.7 Estimated GFR > 60 Random Glucose 82 Calcium 7.9 L Total Bilirubin 0.2 AST 8 ALT 7 Alkaline Phosphatase 89 Total Protein 5.8 L Albumin 2.0 L Blood Type AB Positive Antibody Screen NEGATIVE Crossmatch See Detail Microbiology Microbiology Results: Microbiology 08/03/23 18:25 Blood Culture - Preliminary Blood - Venous Prelim: GNR Gram Stain only 08/03/23 18:22 Blood Culture - Preliminary Blood - Venous No growth after 24 hours. Assessment and Plan (1) GI bleed: Status: Acute (2) Anemia: Status: Acute Plan 73-year-old woman with a past medical history of COPD, hepatitis C, IV drug use, history of MRSA abscesses, history of osteomyelitis of the humerus, clavicle and scapula with MSSA bacteremia in [facility] of 2022 and was treated with residential Abx at [facility]. She has chronic anemia baseline hematocrit from reviewing record at [facility] is 26 which is essentially unchanged. Pt reportedly had lab work done today and was told by PCP to come to the ED. Blood count here show hemoglobin of 8 and hematocrit 26. No active bleeding overnight !.?GIB -active bleeding overnight -seen by GI; will keep NPO possible scope. 2. Anemia -transfuse given hemoglobin of 7.4 -follow CBC 3. Hypo magnesemia -repleted -follow-up clinically Full code Boots Requires ongoing hospitalization for blood transfusion and possible EGD in a.m. Quality Stroke Does the patient have a stroke diagnosis?: No VTE Prior VTE?: No VTE Risk Level:: Medical - moderate - high VTE Device Contraindication: N/A - Device Ordered VTE Drug Contraindication: Treatment Not Tolerated
--- NOTE | 2023-08-05 11:58 | P.PNADD_ITS ---
Subjective Subjective Reason For Visit: Anemia Interim History: Resting comfortably offers no acute complaints left arm pain has improved sleeping good tolerating diet no nausea no vomiting no acute issues overnight. Review of Systems Review of Systems All other system reviewed and negative. Yes all other systems are reviewed and are negative Diagnostics Vital Signs (24Hr): Vital Signs - 24 hr 08/04/23 15:08 08/04/23 19:01 08/04/23 19:30 Temperature 97.0 F 97.5 F Pulse Rate 94 99 89 Respiratory Rate 16 16 16 Blood Pressure 130/71 140/70 H Pulse Oximetry 97 98 Oxygen Delivery Method Room Air Room Air 08/04/23 23:46 08/05/23 03:32 08/05/23 06:58 Temperature 97.6 F 97.4 F 98 F Pulse Rate 98 92 101 H Respiratory Rate 20 18 18 Blood Pressure 140/69 H 137/72 146/85 H Pulse Oximetry 97 98 96 Oxygen Delivery Method Room Air Room Air Room Air 08/05/23 07:12 08/05/23 09:36 08/05/23 09:47 Temperature 97 F 97 F Pulse Rate 90 88 95 Respiratory Rate 16 16 16 Blood Pressure 132/64 132/64 Pulse Oximetry Oxygen Delivery Method 08/05/23 10:03 08/05/23 10:53 Temperature 97.2 F 97 F Pulse Rate 86 92 Respiratory Rate 16 17 Blood Pressure 140/68 H 137/77 Pulse Oximetry 96 Oxygen Delivery Method Room Air BMI result Body Mass Index 18.1 Labs 08/14/23 06:26 08/14/23 06:26 Labs: Laboratory Results - last 48 hr 08/03/23 08/03/23 08/03/23 18:25 18:26 18:28 WBC 5.8 RBC 2.98 L Hgb 8.8 L Hct 27.7 L MCV 93.0 MCH 29.5 MCHC 31.8 RDW 17.1 H Plt Count 224 D MPV 10.0 Immature Gran % (Auto) 0.5 H Neut % (Auto) 43.5 L Lymph % (Auto) 49.0 H Wood % (Auto) 6.2 Eos % (Auto) 0.3 Baso % (Auto) 0.5 Lymph # (Auto) 2.8 Wood # (Auto) 0.4 Eos # (Auto) 0.0 Baso # (Auto) 0.0 Abs Immat Gran (auto) 0.03 Absolute Neuts (auto) 2.5 Absolute Nucleated RBC 0.000 Nucleated RBC % (auto) 0.0 PT 11.7 INR 1.0 APTT 25.9 L VBG pH VBG pCO2 VBG pO2 VBG HCO3 VBG O2 Saturation VBG Base Excess Sodium 137 Potassium 4.0 Chloride 107 Carbon Dioxide 23 Anion Gap 11 L BUN 23 H Creatinine 0.93 Estim Creat Clear Calc 45.8 Estimated GFR 59 Random Glucose 124 H Lactic Acid 1.6 Calcium 7.6 L D Magnesium 1.3 L* Total Bilirubin 0.2 Direct Bilirubin < 0.2 AST 10 ALT 7 Alkaline Phosphatase 102 Troponin I High Sens 4.3 D B-Natriuretic Peptide 98 Total Protein 6.3 L Albumin 2.0 L Stool Occult Blood Urine Opiates Screen Urine Fentanyl Screen Ur Barbiturates Screen Ur Phencyclidine Scrn Ur Amphetamines Screen U Benzodiazepines Scrn Urine Cocaine Screen U Marijuana (THC) Screen COVID-19 (MIKIE) COVID-19 Clin Com Blood Type AB Positive Antibody Screen NEGATIVE Crossmatch See Detail 08/03/23 08/03/23 08/03/23 18:29 18:33 19:18 WBC RBC Hgb Hct MCV MCH MCHC RDW Plt Count MPV Immature Gran % (Auto) Neut % (Auto) Lymph % (Auto) [place] % (Auto) Eos % (Auto) Baso % (Auto) Lymph # (Auto) [place] # (Auto) Eos # (Auto) Baso # (Auto) Abs Immat Gran (auto) Absolute Neuts (auto) Absolute Nucleated RBC Nucleated RBC % (auto) PT INR APTT VBG pH 7.37 VBG pCO2 46 VBG pO2 38 VBG HCO3 26 VBG O2 Saturation 58.0 VBG Base Excess 1.2 Sodium Potassium Chloride Carbon Dioxide Anion Gap BUN Creatinine Estim Creat Clear Calc Estimated GFR Random Glucose Lactic Acid Calcium Magnesium Total Bilirubin Direct Bilirubin AST ALT Alkaline Phosphatase Troponin I High Sens B-Natriuretic Peptide Total Protein Albumin Stool Occult Blood POSITIVE Urine Opiates Screen Not Detected Urine Fentanyl Screen POSITIVE H Ur Barbiturates Screen Not Detected Ur Phencyclidine Scrn Not Detected Ur Amphetamines Screen Not Detected U Benzodiazepines Scrn Not Detected Urine Cocaine Screen Not Detected U Marijuana (THC) Screen Not Detected COVID-19 (MIKIE) Negative COVID-19 Clin Com See Note Blood Type Antibody Screen Crossmatch 08/03/23 08/03/23 08/04/23 20:57 21:31 07:57 WBC 3.9 L RBC 2.50 L Hgb 6.9 L* D 8.3 L D 7.4 L Hct 21.8 L D 26.7 L D 22.6 L MCV 90.4 MCH 29.6 MCHC 32.7 RDW 16.7 H Plt Count 153 L D MPV 10.2 Immature Gran % (Auto) Neut % (Auto) Lymph % (Auto) [place] % (Auto) Eos % (Auto) Baso % (Auto) Lymph # (Auto) [place] # (Auto) Eos # (Auto) Baso # (Auto) Abs Immat Gran (auto) Absolute Neuts (auto) Absolute Nucleated RBC 0.000 Nucleated RBC % (auto) 0.0 PT INR APTT VBG pH VBG pCO2 VBG pO2 VBG HCO3 VBG O2 Saturation VBG Base Excess Sodium Potassium Chloride Carbon Dioxide Anion Gap BUN Creatinine Estim Creat Clear Calc Estimated GFR Random Glucose Lactic Acid Calcium Magnesium Total Bilirubin Direct Bilirubin AST ALT Alkaline Phosphatase Troponin I High Sens B-Natriuretic Peptide Total Protein Albumin Stool Occult Blood Urine Opiates Screen Urine Fentanyl Screen Ur Barbiturates Screen Ur Phencyclidine Scrn Ur Amphetamines Screen U Benzodiazepines Scrn Urine Cocaine Screen U Marijuana (THC) Screen COVID-19 (MIKIE) COVID-19 Clin Com Blood Type Antibody Screen Crossmatch 08/05/23 07:41 WBC 7.4 RBC 2.41 L Hgb 7.2 L Hct 22.0 L MCV 91.3 MCH 29.9 MCHC 32.7 RDW 17.2 H Plt Count 181 MPV 10.5 Immature Gran % (Auto) 0.8 H Neut % (Auto) 66.4 Lymph % (Auto) 25.1 Wood % (Auto) 7.3 Eos % (Auto) 0.1 Baso % (Auto) 0.3 Lymph # (Auto) 1.9 [place] # (Auto) 0.5 Eos # (Auto) 0.0 Baso # (Auto) 0.0 Abs Immat Gran (auto) 0.06 H Absolute Neuts (auto) 4.9 Absolute Nucleated RBC 0.000 Nucleated RBC % (auto) 0.0 PT INR APTT VBG pH VBG pCO2 VBG pO2 VBG HCO3 VBG O2 Saturation VBG Base Excess Sodium 134 L Potassium 4.5 Chloride 108 Carbon Dioxide 20 L Anion Gap 11 L BUN 25 H Creatinine 0.79 Estim Creat Clear Calc 47.7 Estimated GFR > 60 Random Glucose 82 Lactic Acid Calcium 7.9 L Magnesium Total Bilirubin 0.2 Direct Bilirubin AST 8 ALT 7 Alkaline Phosphatase 89 Troponin I High Sens B-Natriuretic Peptide Total Protein 5.8 L Albumin 2.0 L Stool Occult Blood Urine Opiates Screen Urine Fentanyl Screen Ur Barbiturates Screen Ur Phencyclidine Scrn Ur Amphetamines Screen U Benzodiazepines Scrn Urine Cocaine Screen U Marijuana (THC) Screen COVID-19 (MIKIE) COVID-19 Clin Com Blood Type Antibody Screen Crossmatch Imaging Radiology Impressions: ITS Impressions Chest X-Ray 08/03/23 18:55 IMPRESSION: No evidence of acute disease. Medications Medications Current Medications Acetaminophen (Acetaminophen 325 Mg Tablet) 650 mg PO Q6H PRN PRN Reason: Pain, Mild (Pain Scale 1-3) Last Admin: 08/04/23 20:42 Dose: 650 mg Albuterol Sulfate (Albuterol Sulfate (0.083%) 2.5 Mg/3 Ml Vial.Nav) 2.5 mg INHALE Q4H PRN PRN Reason: Shortness Of Breath Or Wheezing Last Admin: 08/04/23 01:48 Dose: 2.5 mg Albuterol Sulfate (Albuterol Sulfate 90 Mcg 8 Gm Inhaler) 2 puff INHALE Q4H PRN PRN Reason: Shortness Of Breath Or Wheezing Clonazepam (Clonazepam 1 Mg Tablet) 1 mg PO BEDTIME PRN PRN Reason: Anxiety Last Admin: 08/04/23 20:41 Dose: 1 mg Ferrous Sulfate (Ferrous Sulfate 324 Mg Tablet.) 324 mg PO BID [facility] Last Admin: 08/05/23 08:16 Dose: 324 mg Fluticasone Propionate (Fluticasone Propionate 250 Mcg Blst.W.Dev) 1 puff INHALE RBID [facility] Last Admin: 08/05/23 07:04 Dose: 1 puff Melatonin (Melatonin 3 Mg Tablet) 6 mg PO BEDTIME PRN PRN Reason: Insomnia Montelukast Sodium (Montelukast Sodium 10 Mg Tablet) 10 mg PO DAILY [facility] Last Admin: 08/05/23 08:15 Dose: 10 mg Omeprazole (Omeprazole 20 Mg Capsule.) 20 mg PO BID [facility] Last Admin: 08/05/23 08:16 Dose: 20 mg Ondansetron HCl (Ondansetron Hcl 4 Mg/2 Ml Vial) 4 mg IVPUSH Q8H PRN PRN Reason: Nausea and Vomiting Sodium Chloride (0.9 % Sodium Chloride Flush 3 Ml Syringe) 3 ml IVFLUSH QSHIFT [facility] Last Admin: 08/05/23 10:36 Dose: Not Given Tiotropium [place] (Tiotropium [place] 2.5 Mcg Inhaler) 2 puff INHALE DAILY [facility] Last Admin: 08/05/23 07:04 Dose: 2 puff Tramadol HCl (Tramadol Hcl 50 Mg Tablet) 50 mg PO Q8H PRN PRN Reason: Pain, Severe (Pain Scale 7-10) Last Admin: 08/05/23 08:15 Dose: 50 mg Vitamin D (Cholecalciferol (Vitamin D3) 25 Mcg Tablet) 25 mcg PO DAILY [facility] Last Admin: 08/05/23 08:15 Dose: 25 mcg Zolpidem Tartrate (Zolpidem Tartrate 5 Mg Tablet) 5 mg PO BEDTIME PRN PRN Reason: Insomnia Allergies Allergies Allergy/AdvReac Type Severity Reaction Status Date / Time cephalexin [From Keflex] Allergy Severe HIVES Verified 04/22/23 06:01 clindamycin [Clindamycin] Allergy Severe HIVES Verified 04/22/23 06:01 doxycycline [Doxycycline] Allergy Severe HIVES Verified 04/22/23 06:01 erythromycin base Allergy Severe HIVES Verified 04/22/23 06:01 [Erythromycin Base] levofloxacin [From Levaquin] Allergy Severe THROAT Verified 04/22/23 06:01 TIGHTENS nitrofurantoin Allergy Severe HIVES Verified 04/22/23 06:01 [From Macrobid] Penicillins Allergy Severe HIVES Verified 04/22/23 06:01 aspirin Allergy Unknown Hives Verified 04/22/23 06:01 linezolid [From ZYVOX] Allergy Unknown UNKNOWN Verified 04/22/23 06:01 Sulfa (Sulfonamide Allergy Unknown HIVES Verified 04/22/23 06:01 Antibiotics) [SULFA (SULFONAMIDE ANTIBIOTICS)] sulfacetamide Allergy Unknown Hives Verified 04/22/23 06:01 Erythromycin Allergy Unknown Hives Uncoded 04/22/23 06:01 seafood/shellfish Allergy Unknown Facial Uncoded 04/22/23 06:01 Swelling Sulfacet-R Allergy Unknown Hives Uncoded 04/22/23 06:01 Assessment & Plan Assessment & Plan Plan 73-year-old woman with a past medical history of COPD, hepatitis C, IV drug use, history of MRSA abscesses, history of osteomyelitis of the humerus, clavicle and scapula with MSSA bacteremia in [facility] of 2022 and was treated with retirement Abx at [facility]. She has chronic anemia baseline hematocrit from reviewing record at [facility] is 26 which is essentially unchanged. Pt reportedly had lab work done today and was told by PCP to come to the ED. Blood count here show hemoglobin of 8 and hematocrit 26. No active bleeding overnight !.?GIB -active bleeding overnight -seen by GI; will keep NPO possible scope. 2. Anemia -transfuse given hemoglobin of 7.4 -follow CBC 3. Hypo magnesemia -repleted -follow-up clinically Full code Boots Requires ongoing hospitalization for blood transfusion and possible EGD in a.m. Total time managing care of this patient today ____ minutes.
--- NOTE | 2023-08-05 12:26 | MHC.SHP ---
Pre-Procedural Eval Section A Date of Service: 08/05/23 The patient is an INPATIENT: Yes Changes since office visit: Yes New Medical Problems, Yes Changes in Medication and Yes Patient answered all questions; No Cold of Flu in the past 2 weeks The History & Physical has been completed within 30 days and I have reviewed it.: Yes Section B Chief Complaint: Anemia Allergies: Allergies Allergy/AdvReac Type Severity Reaction Status Date / Time cephalexin [From Keflex] Allergy Severe HIVES Verified 04/22/23 06:01 clindamycin [Clindamycin] Allergy Severe HIVES Verified 04/22/23 06:01 doxycycline [Doxycycline] Allergy Severe HIVES Verified 04/22/23 06:01 erythromycin base Allergy Severe HIVES Verified 04/22/23 06:01 [Erythromycin Base] levofloxacin [From Levaquin] Allergy Severe THROAT Verified 04/22/23 06:01 TIGHTENS nitrofurantoin Allergy Severe HIVES Verified 04/22/23 06:01 [From Macrobid] Penicillins Allergy Severe HIVES Verified 04/22/23 06:01 aspirin Allergy Unknown Hives Verified 04/22/23 06:01 linezolid [From ZYVOX] Allergy Unknown UNKNOWN Verified 04/22/23 06:01 Sulfa (Sulfonamide Allergy Unknown HIVES Verified 04/22/23 06:01 Antibiotics) [SULFA (SULFONAMIDE ANTIBIOTICS)] sulfacetamide Allergy Unknown Hives Verified 04/22/23 06:01 Erythromycin Allergy Unknown Hives Uncoded 04/22/23 06:01 seafood/shellfish Allergy Unknown Facial Uncoded 04/22/23 06:01 Swelling Sulfacet-R Allergy Unknown Hives Uncoded 04/22/23 06:01 Plan I have reviewed the history and physical and performed a pertinent physical examination on my patient. No changes have occurred unless specified. Time Spent With Patient Time: Total time managing care of this patient today ____ minutes.
--- NOTE | 2023-08-05 12:50 | W.PM.OPN ---
Operative Note Operative Note Date of Service: 08/05/23 Narrative: FLEXIBLE TRANSORAL UPPER GASTROINTESTINAL ENDOSCOPY WITH BIOPSIES Pre-op diagnosis: GI Bleeding, anemia Post-op diagnosis: Non-bleeding gastric ulcers, gastritis Endoscopist:? Maria A Martinez MD Anesthesia:?MAC Consent: Indications for the procedure and potential complications of bleeding, perforation, reaction to medications and missed diagnosis were discussed with the patient and informed consent was obtained. Instrument: Olympus GIF H 190 mid size upper endoscope Monitoring: Vital signs and clinical assessment, continuous EKG monitoring, Pulse oximetry, Carbon Dioxide monitoring and blood pressure monitoring were done throughout the procedure. Procedure: The patient was placed in the left lateral decubitis position and pre-procedure medications were administered and a bite block was placed. The endoscope was inserted into the mouth and advanced under direct vision to the third part of duodenum. A careful inspection was made as the upper endoscope was withdrawn including a retroflexed examination of the proximal stomach; Findings and interventions are described below. Findings: Larynx: Normal Esophagus: GE junction at 38 cms. No esophagitis or Faulkner's. Stomach: Edematous folds in the antrum with two 5-7 mm non-bleeding, clean based chronic appearing ulcers without high risk stigmata for bleeding. Moderate gastric erythema. Antral biopsies were obtained to check for H Pylori. Grade 2 flap valve on retroflexed examination of the cardia. Duodenum: Normal bulb and descending duodenum. Biopsies obtained from 3rd part of duodenum to check for celiac sprue Intervention: Biopsies as noted above Impression and Post Procedure Diagnosis: Endoscopy Findings: STOMACH: Edematous folds in the antrum with two 5-7 mm non-bleeding, clean based chronic appearing ulcers without high risk stigmata for bleeding. DUODENUM: Normal - biopsied to check for celiac sprue No blood seen in the UGI tract during EGD Plan: Follow H & H Q 8 hourly and transfuse to maintain Hb at 7.5 ot higher. Continue IV PPI Golytely prep today for colonoscopy tomorrow Above findings were reviewed with the patient .
--- NOTE | 2023-08-05 15:01 | MHC.CM.PN ---
IMM delivered to Pt, copy furnished in chart as well. CM to follow.
[2023-08-05] MEDS: PEG 3350/Na Sulf,Bicarb,Cl/KCL 4,000 ML SOLN.RECON 4000 ML PO (18:18)
[2023-08-05] MEDS: clonazePAM 1 MG TABLET PO (22:27)
[2023-08-06] VITALS (11 sets, daily range): BP systolic 105–142; BP diastolic 51–71; PULSE 74–104; RESP 16–20; TEMP 35.9–37; O2SAT 94–97; BMI 18.1
--- NOTE | 2023-08-06 06:32 | PC.NURSE ---
pt declined to complete bowel prep for possible colonoscopy for 08/06/23. 08/05/23 2200 pt states unable to drink anymore, spoke with pt in regards to desired outcome for prep in preparation for testing. pt continues to decline and refused several attempts throughout the night.
[2023-08-06] MEDS: traMADoL HCL 50 MG TABLET PO ×2 (06:44→21:29)
[2023-08-06] MEDS: Fluticasone Propionate 250 MCG BLST.W.DEV 1 PUFF INHALE ×2 (07:23→19:24)
[2023-08-06 08:58] LABS: MANUAL DIFF FLAG NO
[2023-08-06 09:01] LABS: Basophils Percent Auto 0.1 % (0-2); Eosinophils Percent Auto 0.3 % (0-4); Hematocrit 29.8 % (37.0-47.0); Hemoglobin 9.6 g/dl (12.0-16.0); Imm Gran Abs Auto 0.03 X10*3/uL (0.00-0.03); Imm Gran Pct Auto 0.4 % (0.0-0.4); Lymphocytes Percent Auto 24.7 % (20-40); Mean Corpuscular HGB Conc 32.2 g/dl (31.0-35.0); Mean Corpuscular Hemoglobin 29.6 pg (27.0-33.0); Mean Platelet Volume 9.3 fL (9.4-12.3); Monocytes Absolute Auto 0.5 X10*3/uL (0.1-1.2); Monocytes Percent Auto 6.4 % (2-11); Neutrophils Absolute Auto 5.4 x10*3/uL (2.0-8.3); Neutrophils Percent Auto 68.1 % (45-73); Platelet Count 246 X10*3/uL (160-400); Red Blood Count 3.24 X10*6/uL (4.20-5.50); Red Cell Distribution Width 17.5 % (11.0-16.0); White Blood Count 7.9 X10*3/uL (4.8-10.8)
[2023-08-06 09:21] LABS: Alanine Aminotransferase 8 U/L (0-31); Albumin Level 2.2 g/dL (3.5-5.0); Alkaline Phosphatase 91 U/L (39-117); Anion Gap 11 (12-20); Aspartate Amino Transferase 9 U/L (5-31); Bilirubin Total 0.4 mg/dL (0.0-1.0); Blood Urea Nitrogen 16 mg/dL (9-16); Calcium 8.2 mg/dL (8.4-10.2); Carbon Dioxide 21 mmol/L (22-29); Chloride 107 mmol/L (96-108); Creatinine Clr Calc Pharmacy 54.7; Estimated Glomerular Filt Rate > 60; Glucose Fasting 69 mg/dL (60-99); Potassium 4.4 mmol/L (3.3-5.1); Sodium 135 mmol/L (135-145); Total Protein 6.2 g/dL (6.5-8.0)
[2023-08-06] MEDS: Cholecalciferol (Vitamin D3) 25 MCG TABLET PO (09:38)
[2023-08-06] MEDS: Ferrous Sulfate 324 MG TABLET.DR PO ×2 (09:38→21:29)
[2023-08-06] MEDS: Omeprazole 20 MG CAPSULE.DR PO ×2 (09:38→21:32)
[2023-08-06] MEDS: Montelukast Sodium 10 MG TABLET PO (09:38)
[2023-08-06] MEDS: 0.9 % Sodium Chloride Flush 3 ML SYRINGE IVFLUSH ×3 (09:51→18:40)
[2023-08-06] MEDS: bisacodyL 5 MG TABLET.DR 10 MG PO (11:06)
--- NOTE | 2023-08-06 12:52 | P.PNIM_ITS ---
Subjective Subjective Date of Service: 08/06/23 Physical Exam 2 Vital Signs: Vital Signs: Last Vital Signs Temp 98.0 F 08/06/23 11:28 Pulse 90 08/06/23 11:28 Resp 19 08/06/23 11:28 BP 142/71 H 08/06/23 11:28 Pulse Ox 97 08/06/23 07:49 O2 Del Method Room Air 08/06/23 11:28 O2 Flow Rate 99 08/05/23 12:55 FiO2 95 08/06/23 11:28 BMI result Body Mass Index 18.1 Objective Data Active Medications Acetaminophen (Acetaminophen 325 Mg Tablet) 650 mg PO Q6H PRN PRN Reason: Pain, Mild (Pain Scale 1-3) Last Admin: 08/04/23 20:42 Dose: 650 mg Documented By: STUART Albuterol Sulfate (Albuterol Sulfate (0.083%) 2.5 Mg/3 Ml Vial.Nav) 2.5 mg INHALE Q4H PRN PRN Reason: Shortness Of Breath Or Wheezing Last Admin: 08/04/23 01:48 Dose: 2.5 mg Documented By: NADINE Albuterol Sulfate (Albuterol Sulfate 90 Mcg 8 Gm Inhaler) 2 puff INHALE Q4H PRN PRN Reason: Shortness Of Breath Or Wheezing Bisacodyl (Bisacodyl 5 Mg Tablet.) 10 mg PO ONCE ONE Stop: 08/07/23 11:01 Last Admin: 08/06/23 11:06 Dose: 10 mg Documented By: VIVEK Clonazepam (Clonazepam 1 Mg Tablet) 1 mg PO BEDTIME PRN PRN Reason: Anxiety Last Admin: 08/05/23 22:27 Dose: 1 mg Documented By: CLAUDIA Ferrous Sulfate (Ferrous Sulfate 324 Mg Tablet.) 324 mg PO BID [facility] Last Admin: 08/06/23 09:38 Dose: 324 mg Documented By: VIVEK Fluticasone Propionate (Fluticasone Propionate 250 Mcg Blst.W.Dev) 1 puff INHALE RBID [facility] Last Admin: 08/06/23 07:23 Dose: 1 puff Documented By: BETTY Melatonin (Melatonin 3 Mg Tablet) 6 mg PO BEDTIME PRN PRN Reason: Insomnia Montelukast Sodium (Montelukast Sodium 10 Mg Tablet) 10 mg PO DAILY [facility] Last Admin: 08/06/23 09:38 Dose: 10 mg Documented By: VIVEK Omeprazole (Omeprazole 20 Mg Capsule.) 20 mg PO BID [facility] Last Admin: 08/06/23 09:38 Dose: 20 mg Documented By: VIVEK Ondansetron HCl (Ondansetron Hcl 4 Mg/2 Ml Vial) 4 mg IVPUSH Q8H PRN PRN Reason: Nausea and Vomiting Sodium Biphosphate/Sodium Phosphate (Sodium Phosphate,[place]-Dibasic 133 Ml Enema) 133 ml [place] ONCE PRN PRN Reason: Poor Colonoscopy Prep Results Sodium Chloride (0.9 % Sodium Chloride Flush 3 Ml Syringe) 3 ml IVFLUSH QSHIFT [facility] Last Admin: 08/06/23 09:51 Dose: 3 ml Documented By: VIVEK Tiotropium [place] (Tiotropium [place] 2.5 Mcg Inhaler) 2 puff INHALE DAILY [facility] Last Admin: 08/06/23 07:23 Dose: 2 puff Documented By: BETTY Tramadol HCl (Tramadol Hcl 50 Mg Tablet) 50 mg PO Q8H PRN PRN Reason: Pain, Severe (Pain Scale 7-10) Last Admin: 08/06/23 06:44 Dose: 50 mg Documented By: CLAUDIA Vitamin D (Cholecalciferol (Vitamin D3) 25 Mcg Tablet) 25 mcg PO DAILY [facility] Last Admin: 08/06/23 09:38 Dose: 25 mcg Documented By: VIVEK Zolpidem Tartrate (Zolpidem Tartrate 5 Mg Tablet) 5 mg PO BEDTIME PRN PRN Reason: Insomnia Labs 08/06/23 08:31 08/06/23 08:31 Labs: Laboratory Results - last 24 hr 08/03/23 08/06/23 18:25 08:31 MCV 92.0 MCH 29.6 MCHC 32.2 RDW 17.5 H Plt Count 246 D MPV 9.3 L Immature Gran % (Auto) 0.4 Neut % (Auto) 68.1 Lymph % (Auto) 24.7 [place] % (Auto) 6.4 Eos % (Auto) 0.3 Baso % (Auto) 0.1 Lymph # (Auto) 2.0 [place] # (Auto) 0.5 Eos # (Auto) 0.0 Baso # (Auto) 0.0 Abs Immat Gran (auto) 0.03 Absolute Neuts (auto) 5.4 Absolute Nucleated RBC 0.000 Nucleated RBC % (auto) 0.0 Anion Gap 11 L Estim Creat Clear Calc 54.7 Estimated GFR > 60 Fasting Glucose 69 Calcium 8.2 L Total Bilirubin 0.4 AST 9 ALT 8 Alkaline Phosphatase 91 Total Protein 6.2 L Albumin 2.2 L Crossmatch See Detail Microbiology Microbiology Results: Microbiology 08/03/23 18:25 Blood Culture - Preliminary Blood - Venous Prelim: GNR Gram Stain only 08/03/23 18:22 Blood Culture - Preliminary Blood - Venous No growth after 48 hours. Assessment and Plan (1) GI bleed: Status: Acute (2) Anemia: Status: Acute (3) Heme positive stool: Status: Acute Plan 73-year-old woman with a past medical history of COPD, hepatitis C, IV drug use, history of MRSA abscesses, history of osteomyelitis of the humerus, clavicle and scapula with MSSA bacteremia in June of 2023 and was treated with [facility] Abx at [facility]. She has chronic anemia baseline hematocrit from reviewing record at [facility] is 26 which is essentially unchanged. Pt reportedly had lab work done today and was told by PCP to come to the ED. Blood count here show hemoglobin of 8 and hematocrit 26. No active bleeding overnight GIB, upper vs lower stable HH today EGD showing no esophagitis or barretts. moderate gastric gastric erythema, non bleeding stomach ulcers found continue PPI keep Hb>7.5 Plan for colonoscopy today Anemia possible blood loss, unknown at this time follow CBC Hypomagnesemia repleted follow-up clinically Attending Dr. Chang full code DVT prophylaxis with scd boots in light of anemia DISPO patient homeless, PT consult Requires ongoing hospitalization for blood transfusion and colonoscopy Quality Stroke Does the patient have a stroke diagnosis?: No VTE Prior VTE?: No VTE Risk Level:: Medical - moderate - high VTE Device Contraindication: N/A - Device Ordered VTE Drug Contraindication: Treatment Not Tolerated
[2023-08-06] MEDS: Sodium Phosphate,Mono-Dibasic 133 ML ENEMA PR (12:59)
--- NOTE | 2023-08-06 13:52 | PC.NURSE ---
patient with nickel size stage 2 pressure ucler open area to coccyx, foam dressing applied. pt complains of 10/10 pain to area. this RN gave second fleet enema, dark brown watery stool noted. Dr. Juan rivero.
--- NOTE | 2023-08-06 14:13 | P.CONAN_ITS ---
[facility] Active Problems Active Problems: All Active Problems (Updated 08/04/23 @ 13:49 by Maria A Martinez MD) Heme positive stool (Acute) Hypomagnesemia (Acute) Asthma exacerbation (Acute) Anemia (Acute) GI bleed (Acute) Past Medical History Medical History (Updated 08/04/23 @ 13:49 by Maria A Martinez MD) Chronic anemia MRSA cellulitis Asthma Legally blind Family History Family history of problems with anesthesia: No Surgical History History of Problems with Anesthesia: No Social History Social History Household Members: None Housing: Homeless Do you presently have visiting nurse or other home services: No Unable to assess alcohol history related to: Unknown Alcohol intake: never Patient Tobacco Use Status: Never used Tobacco Smoked in Last 30 Days: No e-Cigarette/Vaping Use: Former Use Patient Interested in Nicotine Replacement: No Patient Given Instructions on How to Stop Smoking: No Second Hand Smoke Exposure: No Use of substances other than those prescribed or required for medical reasons: No Last Used Substance: Just Prior to Admission Last Used Substance Other:: denies, but tested positive for fentanyl Currently Displaying Signs/Symptoms of Drug Intoxication Withdrawal: No Any prior treatment program specific to substance use: Yes Have you been hit, kicked, punched, or otherwise hurt by someone within the past year? If so, by whom?: No Do you feel safe in your current relationship?: No Is there a partner from a previous relationship who is making you feel unsafe now?: No Are you made to feel afraid or neglected: No Are you DNR?: No Advance Directives: No Advance Directives Information Provided: No Advance Directives on File: No Do you have thoughts of harming others: None Do you have a plan to hurt others: No Plan Recently lost weight without trying: No Eating poorly because of decreased appetite: No Nutrition Risks: No Nutritional Risk Patient : No : No Poor oral hygiene: Yes service: No Meds Allergies Allergy/AdvReac Type Severity Reaction Status Date / Time cephalexin [From Keflex] Allergy Severe HIVES Verified 04/22/23 06:01 clindamycin [Clindamycin] Allergy Severe HIVES Verified 04/22/23 06:01 doxycycline [Doxycycline] Allergy Severe HIVES Verified 04/22/23 06:01 erythromycin base Allergy Severe HIVES Verified 04/22/23 06:01 [Erythromycin Base] levofloxacin [From Levaquin] Allergy Severe THROAT Verified 04/22/23 06:01 TIGHTENS nitrofurantoin Allergy Severe HIVES Verified 04/22/23 06:01 [From Macrobid] Penicillins Allergy Severe HIVES Verified 04/22/23 06:01 aspirin Allergy Unknown Hives Verified 04/22/23 06:01 linezolid [From ZYVOX] Allergy Unknown UNKNOWN Verified 04/22/23 06:01 Sulfa (Sulfonamide Allergy Unknown HIVES Verified 04/22/23 06:01 Antibiotics) [SULFA (SULFONAMIDE ANTIBIOTICS)] sulfacetamide Allergy Unknown Hives Verified 04/22/23 06:01 Erythromycin Allergy Unknown Hives Uncoded 04/22/23 06:01 seafood/shellfish Allergy Unknown Facial Uncoded 04/22/23 06:01 Swelling Sulfacet-R Allergy Unknown Hives Uncoded 04/22/23 06:01 Active Medications: Current Medications Acetaminophen (Acetaminophen 325 Mg Tablet) 650 mg PO Q6H PRN PRN Reason: Pain, Mild (Pain Scale 1-3) Last Admin: 08/04/23 20:42 Dose: 650 mg Albuterol Sulfate (Albuterol Sulfate (0.083%) 2.5 Mg/3 Ml Vial.Nav) 2.5 mg INHALE Q4H PRN PRN Reason: Shortness Of Breath Or Wheezing Last Admin: 08/04/23 01:48 Dose: 2.5 mg Albuterol Sulfate (Albuterol Sulfate 90 Mcg 8 Gm Inhaler) 2 puff INHALE Q4H PRN PRN Reason: Shortness Of Breath Or Wheezing Bisacodyl (Bisacodyl 5 Mg Tablet.) 10 mg PO ONCE ONE Stop: 08/07/23 11:01 Last Admin: 08/06/23 11:06 Dose: 10 mg Clonazepam (Clonazepam 1 Mg Tablet) 1 mg PO BEDTIME PRN PRN Reason: Anxiety Last Admin: 08/05/23 22:27 Dose: 1 mg Ferrous Sulfate (Ferrous Sulfate 324 Mg Tablet.) 324 mg PO BID [facility] Last Admin: 08/06/23 09:38 Dose: 324 mg Fluticasone Propionate (Fluticasone Propionate 250 Mcg Blst.W.Dev) 1 puff INHALE RBID [facility] Last Admin: 08/06/23 07:23 Dose: 1 puff Melatonin (Melatonin 3 Mg Tablet) 6 mg PO BEDTIME PRN PRN Reason: Insomnia Montelukast Sodium (Montelukast Sodium 10 Mg Tablet) 10 mg PO DAILY [facility] Last Admin: 08/06/23 09:38 Dose: 10 mg Omeprazole (Omeprazole 20 Mg Capsule.Dr) 20 mg PO BID [facility] Last Admin: 08/06/23 09:38 Dose: 20 mg Ondansetron HCl (Ondansetron Hcl 4 Mg/2 Ml Vial) 4 mg IVPUSH Q8H PRN PRN Reason: Nausea and Vomiting Sodium Biphosphate/Sodium Phosphate (Sodium Phosphate,[place]-Dibasic 133 Ml Enema) 133 ml LA ONCE PRN PRN Reason: Poor Colonoscopy Prep Results Last Admin: 08/06/23 12:59 Dose: 133 ml Sodium Biphosphate/Sodium Phosphate (Sodium Phosphate,[place]-Dibasic 133 Ml Enema) 133 ml LA ONCE PRN PRN Reason: Poor Colonoscopy Prep Results Sodium Chloride (0.9 % Sodium Chloride Flush 3 Ml Syringe) 3 ml IVFLUSH QSHIFT [facility] Last Admin: 08/06/23 09:51 Dose: 3 ml Tiotropium [place] (Tiotropium [place] 2.5 Mcg Inhaler) 2 puff INHALE DAILY [facility] Last Admin: 08/06/23 07:23 Dose: 2 puff Tramadol HCl (Tramadol Hcl 50 Mg Tablet) 50 mg PO Q8H PRN PRN Reason: Pain, Severe (Pain Scale 7-10) Last Admin: 08/06/23 06:44 Dose: 50 mg Vitamin D (Cholecalciferol (Vitamin D3) 25 Mcg Tablet) 25 mcg PO DAILY [facility] Last Admin: 08/06/23 09:38 Dose: 25 mcg Zolpidem Tartrate (Zolpidem Tartrate 5 Mg Tablet) 5 mg PO BEDTIME PRN PRN Reason: Insomnia Home Medications Medication Instructions Recorded Confirmed Last Taken Type albuterol sulfate 2.5 mg/3 mL 2.5 mg inhalation Q4H PRN 08/03/23 08/03/23 Unknown History (0.083 %) solution for nebulization Shortness Of Breath Or Wheezing albuterol sulfate 90 mcg/actuation 2 puff inhalation Q4-6H PRN 08/03/23 08/03/23 Unknown History aerosol inhaler Shortness Of Breath Or Wheezing apixaban 2.5 mg tablet (Eliquis) 2.5 mg PO BID 08/03/23 Unknown History cholecalciferol (vitamin D3) 25 25 mcg PO DAILY 08/03/23 08/03/23 Unknown History mcg (1,000 unit) tablet clonazepam 1 mg tablet 1 mg PO BEDTIME PRN Anxiety 08/03/23 08/03/23 Unknown History ferrous sulfate 325 mg (65 mg 325 mg PO BID 08/03/23 08/03/23 Unknown History iron) tablet,delayed release fluticasone propionate 220 1 puff inhalation BID 08/03/23 08/03/23 Unknown History mcg/actuation HFA aerosol inhaler (Flovent HFA) ibuprofen 600 mg tablet 600 mg PO TID PRN pain 08/03/23 08/03/23 Unknown History montelukast 10 mg tablet 10 mg PO DAILY 08/03/23 08/03/23 Unknown History omeprazole 20 mg capsule,delayed 20 mg PO BID 08/03/23 08/03/23 Unknown History release tiotropium bromide 18 mcg capsule 1 cap inhalation DAILY 08/03/23 08/03/23 Unknown History with inhalation device (Spiriva with HandiHaler) zolpidem 5 mg tablet 5 mg PO BEDTIME PRN Insomnia 08/03/23 08/03/23 Unknown History Exam Exam Date and Time: August 06, 2023 1413 Height,Weight and Vital Signs: Height 5 ft 3 in Weight 46.3 kg Last Vital Signs Temp 97.4 F 08/06/23 13:33 Pulse 97 08/06/23 13:33 Resp 18 08/06/23 13:33 BP 134/65 08/06/23 13:33 Pulse Ox 94 08/06/23 13:33 O2 Del Method Room Air 08/06/23 13:33 O2 Flow Rate 99 08/05/23 12:55 FiO2 95 08/06/23 11:28 Pertinent Lab Results Pertinent Lab Results: Laboratory Tests 08/03/23 08/03/23 08/03/23 18:25 18:26 18:28 WBC 5.8 RBC 2.98 L Hgb 8.8 L Hct 27.7 L MCV 93.0 MCH 29.5 MCHC 31.8 RDW 17.1 H Plt Count 224 D MPV 10.0 Immature Gran % (Auto) 0.5 H Neut % (Auto) 43.5 L Lymph % (Auto) 49.0 H Worth % (Auto) 6.2 Eos % (Auto) 0.3 Baso % (Auto) 0.5 Lymph # (Auto) 2.8 Worth # (Auto) 0.4 Eos # (Auto) 0.0 Baso # (Auto) 0.0 Abs Immat Gran (auto) 0.03 Absolute Neuts (auto) 2.5 Absolute Nucleated RBC 0.000 Nucleated RBC % (auto) 0.0 PT 11.7 INR 1.0 APTT 25.9 L VBG pH VBG pCO2 VBG pO2 VBG HCO3 VBG O2 Saturation VBG Base Excess Sodium 137 Potassium 4.0 Chloride 107 Carbon Dioxide 23 Anion Gap 11 L BUN 23 H Creatinine 0.93 Estim Creat Clear Calc 45.8 Estimated GFR 59 Random Glucose 124 H Fasting Glucose Lactic Acid 1.6 Calcium 7.6 L D Magnesium 1.3 L* Total Bilirubin 0.2 Direct Bilirubin < 0.2 AST 10 ALT 7 Alkaline Phosphatase 102 Troponin I High Sens 4.3 D B-Natriuretic Peptide 98 Total Protein 6.3 L Albumin 2.0 L Stool Occult Blood Urine Opiates Screen Urine Fentanyl Screen Ur Barbiturates Screen Ur Phencyclidine Scrn Ur Amphetamines Screen U Benzodiazepines Scrn Urine Cocaine Screen U Marijuana (THC) Screen COVID-19 (MIKIE) COVID-19 Clin Com Blood Type AB Positive Antibody Screen NEGATIVE Crossmatch See Detail 08/03/23 08/03/23 08/03/23 18:29 18:33 19:18 WBC RBC Hgb Hct MCV MCH MCHC RDW Plt Count MPV Immature Gran % (Auto) Neut % (Auto) Lymph % (Auto) Worth % (Auto) Eos % (Auto) Baso % (Auto) Lymph # (Auto) Worth # (Auto) Eos # (Auto) Baso # (Auto) Abs Immat Gran (auto) Absolute Neuts (auto) Absolute Nucleated RBC Nucleated RBC % (auto) PT INR APTT VBG pH 7.37 VBG pCO2 46 VBG pO2 38 VBG HCO3 26 VBG O2 Saturation 58.0 VBG Base Excess 1.2 Sodium Potassium Chloride Carbon Dioxide Anion Gap BUN Creatinine Estim Creat Clear Calc Estimated GFR Random Glucose Fasting Glucose Lactic Acid Calcium Magnesium Total Bilirubin Direct Bilirubin AST ALT Alkaline Phosphatase Troponin I High Sens B-Natriuretic Peptide Total Protein Albumin Stool Occult Blood POSITIVE Urine Opiates Screen Not Detected Urine Fentanyl Screen POSITIVE H Ur Barbiturates Screen Not Detected Ur Phencyclidine Scrn Not Detected Ur Amphetamines Screen Not Detected U Benzodiazepines Scrn Not Detected Urine Cocaine Screen Not Detected U Marijuana (THC) Screen Not Detected COVID-19 (MIKIE) Negative COVID-19 Clin Com See Note Blood Type Antibody Screen Crossmatch 08/03/23 08/03/23 08/04/23 20:57 21:31 07:57 WBC 3.9 L RBC 2.50 L Hgb 6.9 L* D 8.3 L D 7.4 L Hct 21.8 L D 26.7 L D 22.6 L MCV 90.4 MCH 29.6 MCHC 32.7 RDW 16.7 H Plt Count 153 L D MPV 10.2 Immature Gran % (Auto) Neut % (Auto) Lymph % (Auto) Worth % (Auto) Eos % (Auto) Baso % (Auto) Lymph # (Auto) Worth # (Auto) Eos # (Auto) Baso # (Auto) Abs Immat Gran (auto) Absolute Neuts (auto) Absolute Nucleated RBC 0.000 Nucleated RBC % (auto) 0.0 PT INR APTT VBG pH VBG pCO2 VBG pO2 VBG HCO3 VBG O2 Saturation VBG Base Excess Sodium Potassium Chloride Carbon Dioxide Anion Gap BUN Creatinine Estim Creat Clear Calc Estimated GFR Random Glucose Fasting Glucose Lactic Acid Calcium Magnesium Total Bilirubin Direct Bilirubin AST ALT Alkaline Phosphatase Troponin I High Sens B-Natriuretic Peptide Total Protein Albumin Stool Occult Blood Urine Opiates Screen Urine Fentanyl Screen Ur Barbiturates Screen Ur Phencyclidine Scrn Ur Amphetamines Screen U Benzodiazepines Scrn Urine Cocaine Screen U Marijuana (THC) Screen COVID-19 (MIKIE) COVID-19 Clin Com Blood Type Antibody Screen Crossmatch 08/05/23 08/06/23 07:41 08:31 WBC 7.4 7.9 RBC 2.41 L 3.24 L D Hgb 7.2 L 9.6 L D Hct 22.0 L 29.8 L D MCV 91.3 92.0 MCH 29.9 29.6 MCHC 32.7 32.2 RDW 17.2 H 17.5 H Plt Count 181 246 D MPV 10.5 9.3 L Immature Gran % (Auto) 0.8 H 0.4 Neut % (Auto) 66.4 68.1 Lymph % (Auto) 25.1 24.7 Worth % (Auto) 7.3 6.4 Eos % (Auto) 0.1 0.3 Baso % (Auto) 0.3 0.1 Lymph # (Auto) 1.9 2.0 Worth # (Auto) 0.5 0.5 Eos # (Auto) 0.0 0.0 Baso # (Auto) 0.0 0.0 Abs Immat Gran (auto) 0.06 H 0.03 Absolute Neuts (auto) 4.9 5.4 Absolute Nucleated RBC 0.000 0.000 Nucleated RBC % (auto) 0.0 0.0 PT INR APTT VBG pH VBG pCO2 VBG pO2 VBG HCO3 VBG O2 Saturation VBG Base Excess Sodium 134 L 135 Potassium 4.5 4.4 Chloride 108 107 Carbon Dioxide 20 L 21 L Anion Gap 11 L 11 L BUN 25 H 16 Creatinine 0.79 0.69 Estim Creat Clear Calc 47.7 54.7 Estimated GFR > 60 > 60 Random Glucose 82 Fasting Glucose 69 Lactic Acid Calcium 7.9 L 8.2 L Magnesium Total Bilirubin 0.2 0.4 Direct Bilirubin AST 8 9 ALT 7 8 Alkaline Phosphatase 89 91 Troponin I High Sens B-Natriuretic Peptide Total Protein 5.8 L 6.2 L Albumin 2.0 L 2.2 L Stool Occult Blood Urine Opiates Screen Urine Fentanyl Screen Ur Barbiturates Screen Ur Phencyclidine Scrn Ur Amphetamines Screen U Benzodiazepines Scrn Urine Cocaine Screen U Marijuana (THC) Screen COVID-19 (MIKIE) COVID-19 Clin Com Blood Type Antibody Screen Crossmatch Airway Mallampati Class: II TM Dist: >3cm Neck ROM: Full Denture: Upper and Lower Heart: rrr Lungs: cta Assessment and Plan Assessment Anesthesia Assessment: Anesthesia Plan Discussed and Chart Reviewed Final Anesthetic Review Family History of Problems with Anesthesia: No History of Problems with Anesthesia: No NPO: Yes ASA Class: III and Emergency Final Preanesthetic Review: No Changes in Pt Med Stat, Meds/Allgs Chart Reviewed and Consent Obtained/Reviewed Patient Risk: Intermediate Procedure Risk: Intermediate Anesthetic Plan Anesthetic Plan: MAC: Disposition: Standard PACU
--- NOTE | 2023-08-06 14:17 | HO.POSTANES ---
Post Anesthesia Evaluation Post Anesthesia Evaluation Date of Service: 08/06/23 Vital Signs: Vital Signs Temp Pulse Resp BP Pulse Ox O2 Del Method FiO2 08/06/23 13:33 97.4 F 97 18 134/65 94 Room Air 08/06/23 11:28 98.0 F 90 19 142/71 H Room Air 95 08/06/23 07:49 98.3 F 98 19 135/60 97 Room Air 08/06/23 07:23 88 18 08/06/23 04:00 96.6 F L 74 18 128/66 94 Room Air Anesthesia: Monitored Mental Status: Awake Pain Control: Satisfactory Nausea/Vomiting: None Hydration: Adequate Anesthesia-Related Issues: No Anes. Related Issues
--- NOTE | 2023-08-06 14:18 | W.PM.OPN ---
Operative Note Operative Note Date of Service: 08/06/23 Narrative: FLEXIBLE SIGMOIDOSCOPY TILL 35 CMS WITH BIOPSIES Pre-op diagnosis: LGI bleeding, anemia Post-op diagnosis: left-sided colitis, diverticulosis Endoscopist:? Maria A Martinez MD Anesthesia:?MAC Consent: Indications for the procedure and potential complications of bleeding, perforation, reaction to medications and missed diagnosis were discussed with the patient and informed consent was obtained. Instrument: Olympus PCF H 190 L variable stiffness pediatric colonoscope Monitoring: Vital signs and clinical assessment, intermittent blood pressure monitoring, continuous EKG monitoring, Pulse oximetry and Carbon Dioxide monitoring were done throughout the procedure. Please see anesthesia flowsheet. Procedure: The patient was placed in the left lateral decubitis position and pre-procedure medications were administered. After a digital rectal examination of the ano-rectum, the video colonoscope was inserted into the rectum and advanced through the colon to 35 cms into the sigmoid colon. It was not possible to advance further due to solid stools blocking the lumen. The colonoscope was slowly withdrawn in a retrograde panoramic fashion and the colon mucosa was carefully examined including a retroflexed view of the rectum. Findings and interventions are described below. Procedure Difficulty: Without difficulty Findings: Sigmoid Colon: Edema, erythema with multiple ulcers with whilte exudate extending from 10 to 30 cms . Mucosa above 30 cms not well visualized due to suboptimal prep. Moderate diverticulosis Rectum: Normal Ano-rectum: Normal Colon preparation: Fair in the sigmoid colon after copious irrigation. Poor prep proximal to the sigmoid colon Impression and Post Procedure Diagnosis: Flexible Sigmoidoscopy Findings: Edema, erythema with multiple ulcers with whilte exudate extending from 10 to 30 cms - biopsies obtained . Mucosa above 30 cms not well visualized due to suboptimal prep. Moderate diverticulosis seen in the sigmoid colon Dark brown stools and no fresh or old blood noted in the left colon during sigmoidoscopy. LGI bleeding likely from left sided colitis (likely due to ischemic colitis versus IBD) Plan: I will contact patient with pathology results Follow CBC and if stable without further bleeding, pt can be discharged home (since she is refusing to go to SNF) Pt can be scheduled for a colonoscopy as an outpatient if she agrees (pt is hard to prep since she refused to drink Golytely while in the hospital) Above findings were reviewed with the patient
[2023-08-06] MEDS: Albuterol Sulfate (0.083%) 2.5 MG/3 ML VIAL.NEB INHALE ×2 (14:33→21:43)
[2023-08-06] MEDS: clonazePAM 1 MG TABLET PO (21:37)
[2023-08-07] VITALS (11 sets, daily range): BP systolic 122–174; BP diastolic 59–89; PULSE 86–109; RESP 16–20; TEMP 36.5–36.9; O2SAT 96–97
[2023-08-07] MEDS: Acetaminophen 325 MG TABLET 650 MG PO ×3 (00:18→20:09)
[2023-08-07] MEDS: 0.9 % Sodium Chloride Flush 3 ML SYRINGE IVFLUSH ×4 (00:22→20:12)
[2023-08-07] MEDS: Morphine Sulfate 2 MG/ML CARTRIDGE IVPUSH (02:29)
[2023-08-07] MEDS: Morphine Sulfate 4 MG/ML CARTRIDGE IVPUSH (04:26)
[2023-08-07 05:49] LABS: Basophils Percent Auto 0.3 % (0-2); Eosinophils Percent Auto 0.4 % (0-4); Hemoglobin 8.8 g/dl (12.0-16.0); Imm Gran Abs Auto 0.04 X10*3/uL (0.00-0.03); Imm Gran Pct Auto 0.5 % (0.0-0.4); Lymphocytes Absolute Auto 2.3 X10*3/uL (1.2-4.9); Lymphocytes Percent Auto 31.3 % (20-40); MANUAL DIFF FLAG SCAN; Mean Corpuscular HGB Conc 32.6 g/dl (31.0-35.0); Mean Corpuscular Hemoglobin 30.2 pg (27.0-33.0); Mean Corpuscular Volume 92.8 fL (80.0-98.0); Mean Platelet Volume 10.6 fL (9.4-12.3); Monocytes Absolute Auto 0.5 X10*3/uL (0.1-1.2); Monocytes Percent Auto 7.3 % (2-11); NRBC Pct Auto 0.3 /100WBC (0.0-0.2); Neutrophils Absolute Auto 4.4 x10*3/uL (2.0-8.3); Neutrophils Percent Auto 60.2 % (45-73); PLT CLUMP 1; Red Blood Count 2.91 X10*6/uL (4.20-5.50); Red Cell Distribution Width 17.4 % (11.0-16.0); SCAN SMEAR FLAG 1
[2023-08-07 05:59] LABS: Alanine Aminotransferase 7 U/L (0-31); Alkaline Phosphatase 78 U/L (39-117); Anion Gap 9 (12-20); Aspartate Amino Transferase 7 U/L (5-31); Bilirubin Total 0.3 mg/dL (0.0-1.0); Blood Urea Nitrogen 18 mg/dL (9-16); Calcium 7.7 mg/dL (8.4-10.2); Carbon Dioxide 20 mmol/L (22-29); Chloride 112 mmol/L (96-108); Creatinine Clr Calc Pharmacy 43.8; Estimated Glomerular Filt Rate > 60; Glucose Fasting 88 mg/dL (60-99); Potassium 4.4 mmol/L (3.3-5.1); Sodium 137 mmol/L (135-145); Total Protein 5.4 g/dL (6.5-8.0)
[2023-08-07 06:27] LABS: SLIDE REVIEW VERIFIED; White Blood Count 7.3 X10*3/uL (4.8-10.8)
[2023-08-07] MEDS: Fluticasone Propionate 250 MCG BLST.W.DEV 1 PUFF INHALE ×2 (07:42→20:05)
[2023-08-07] MEDS: traMADoL HCL 50 MG TABLET PO ×2 (07:57→17:21)
[2023-08-07] MEDS: Omeprazole 20 MG CAPSULE.DR PO ×2 (07:57→20:09)
[2023-08-07] MEDS: Ferrous Sulfate 324 MG TABLET.DR PO ×2 (07:57→20:09)
[2023-08-07] MEDS: Cholecalciferol (Vitamin D3) 25 MCG TABLET PO (07:57)
[2023-08-07] MEDS: Montelukast Sodium 10 MG TABLET PO (07:57)
--- NOTE | 2023-08-07 10:37 | P.PNIM_ITS ---
Subjective Subjective Date of Service: 08/07/23 Review of Systems Follow up GI bleed no further epsiodes Physical Exam 2 Vital Signs: Vital Signs: Last Vital Signs Temp 97.8 F 08/07/23 07:46 Pulse 97 08/07/23 09:49 Resp 18 08/07/23 07:46 BP 140/89 H 08/07/23 09:49 Pulse Ox 97 08/07/23 04:00 O2 Del Method Room Air 08/07/23 07:46 O2 Flow Rate 3 08/06/23 15:13 FiO2 95 08/07/23 07:46 BMI result Body Mass Index 18.1 Objective Data Active Medications Acetaminophen (Acetaminophen 325 Mg Tablet) 650 mg PO Q6H PRN PRN Reason: Pain, Mild (Pain Scale 1-3) Last Admin: 08/07/23 00:18 Dose: 650 mg Documented By: BLAYNE Albuterol Sulfate (Albuterol Sulfate (0.083%) 2.5 Mg/3 Ml Vial.Neb) 2.5 mg INHALE Q4H PRN PRN Reason: Shortness Of Breath Or Wheezing Last Admin: 08/06/23 21:43 Dose: 2.5 mg Documented By: AGUSTIN Albuterol Sulfate (Albuterol Sulfate 90 Mcg 8 Gm Inhaler) 2 puff INHALE Q4H PRN PRN Reason: Shortness Of Breath Or Wheezing Albuterol Sulfate (Albuterol Sulfate (0.083%) 2.5 Mg/3 Ml Vial.Neb) 2.5 mg INHALE ONCE PRN PRN Reason: Shortness of Breath/Wheezing Bisacodyl (Bisacodyl 5 Mg Tablet.) 10 mg PO ONCE ONE Stop: 08/07/23 11:01 Last Admin: 08/06/23 11:06 Dose: 10 mg Documented By: VIVEK Clonazepam (Clonazepam 1 Mg Tablet) 1 mg PO BEDTIME PRN PRN Reason: Anxiety Last Admin: 08/06/23 21:37 Dose: 1 mg Documented By: BLAYNE Ferrous Sulfate (Ferrous Sulfate 324 Mg Tablet.) 324 mg PO BID [facility] Last Admin: 08/07/23 07:57 Dose: 324 mg Documented By: BROSinai Fluticasone Propionate (Fluticasone Propionate 250 Mcg Blst.W.Dev) 1 puff INHALE RBID [facility] Last Admin: 08/07/23 07:42 Dose: 1 puff Documented By: WILFRID Melatonin (Melatonin 3 Mg Tablet) 6 mg PO BEDTIME PRN PRN Reason: Insomnia Montelukast Sodium (Montelukast Sodium 10 Mg Tablet) 10 mg PO DAILY [facility] Last Admin: 08/07/23 07:57 Dose: 10 mg Documented By: BOBBY Omeprazole (Omeprazole 20 Mg Capsule.Dr) 20 mg PO BID [facility] Last Admin: 08/07/23 07:57 Dose: 20 mg Documented By: BOBBY Ondansetron HCl (Ondansetron Hcl 4 Mg/2 Ml Vial) 4 mg IVPUSH Q8H PRN PRN Reason: Nausea and Vomiting Sodium Biphosphate/Sodium Phosphate (Sodium Phosphate,[place]-Dibasic 133 Ml Enema) 133 ml OR ONCE PRN PRN Reason: Poor Colonoscopy Prep Results Last Admin: 08/06/23 12:59 Dose: 133 ml Documented By: VIVEK Sodium Biphosphate/Sodium Phosphate (Sodium Phosphate,[place]-Dibasic 133 Ml Enema) 133 ml OR ONCE PRN PRN Reason: Poor Colonoscopy Prep Results Sodium Chloride (0.9 % Sodium Chloride Flush 3 Ml Syringe) 3 ml IVFLUSH QSHIFT [facility] Last Admin: 08/07/23 07:58 Dose: 3 ml Documented By: BOBBY Tiotropium [place] (Tiotropium [place] 2.5 Mcg Inhaler) 2 puff INHALE DAILY [facility] Last Admin: 08/07/23 07:42 Dose: 2 puff Documented By: WILFRID Tramadol HCl (Tramadol Hcl 50 Mg Tablet) 50 mg PO Q8H PRN PRN Reason: Pain, Severe (Pain Scale 7-10) Last Admin: 08/07/23 07:57 Dose: 50 mg Documented By: BOBBY Vitamin D (Cholecalciferol (Vitamin D3) 25 Mcg Tablet) 25 mcg PO DAILY [facility] Last Admin: 08/07/23 07:57 Dose: 25 mcg Documented By: BOBBY Zolpidem Tartrate (Zolpidem Tartrate 5 Mg Tablet) 5 mg PO BEDTIME PRN PRN Reason: Insomnia Labs 08/07/23 05:16 08/07/23 05:16 Labs: Laboratory Results - last 24 hr 08/07/23 05:16 MCV 92.8 MCH 30.2 MCHC 32.6 RDW 17.4 H Plt Count TNP MPV 10.6 Immature Gran % (Auto) 0.5 H Neut % (Auto) 60.2 Lymph % (Auto) 31.3 [place] % (Auto) 7.3 Eos % (Auto) 0.4 Baso % (Auto) 0.3 Lymph # (Auto) 2.3 [place] # (Auto) 0.5 Eos # (Auto) 0.0 Baso # (Auto) 0.0 Abs Immat Gran (auto) 0.04 H Absolute Neuts (auto) 4.4 Absolute Nucleated RBC 0.020 H Nucleated RBC % (auto) 0.3 H Smear Tech's Comments VERIFIED Anion Gap 9 L Estim Creat Clear Calc 43.8 Estimated GFR > 60 Fasting Glucose 88 Calcium 7.7 L D Total Bilirubin 0.3 AST 7 ALT 7 Alkaline Phosphatase 78 Total Protein 5.4 L Albumin 2.0 L Microbiology Microbiology Results: Microbiology 08/03/23 18:25 Blood Culture - Preliminary Blood - Venous Prelim: GNR Gram Stain only Assessment and Plan (1) GI bleed: Status: Acute (2) Anemia: Status: Acute (3) Heme positive stool: Status: Acute Plan 73-year-old woman with a past medical history of COPD, hepatitis C, IV drug use, history of MRSA abscesses, history of osteomyelitis of the humerus, clavicle and scapula with MSSA bacteremia in June of 2023 and was treated with long term acute care registered nurse Abx at [facility]. She has chronic anemia baseline hematocrit from reviewing record at [facility] is 26 which is essentially unchanged. Pt reportedly had lab work done today and was told by PCP to come to the ED. Blood count here show hemoglobin of 8 and hematocrit 26. No active bleeding overnight GIB, upper vs lower stable HH today EGD showing no esophagitis or barretts. moderate gastric gastric erythema, non bleeding stomach ulcers found continue PPI keep Hb>7.5 s/p colonoscopy dark stools noted in the sigmoid colon, ulcers noted, biopsies taken. ? ischemic colitis vs IBD, biopsy results followed up, o/p symptoms may also be related to cocain use as this can cause ischemic colitis Anemia possible blood loss, unknown at this time follow CBC Hypomagnesemia repleted follow-up clinically Attending Dr. Chang full code DVT prophylaxis with scd boots in light of anemia DISPO patient homeless, PT consult>rec STR but patient refusing, stated that she will stay with her son, attempting to locate contact information Requires ongoing hospitalization for blood transfusion and colonoscopy Quality Stroke Does the patient have a stroke diagnosis?: No VTE Prior VTE?: No VTE Risk Level:: Medical - moderate - high VTE Device Contraindication: N/A - Device Ordered VTE Drug Contraindication: Treatment Not Tolerated
--- NOTE | 2023-08-07 10:37 | MHC.CM.PN ---
BART spoke with [facility] @ [phone] and provided her with her requested update regarding dc planning. PT is now recommending STR and CM will continue to follow.
--- NOTE | 2023-08-07 12:06 | MHC.CM.PN ---
If Patient were to have a place to stay in the community at id, she is eligible for [employer] hours/week. She left [facility] AMA on 06/25/2023.
--- NOTE | 2023-08-07 12:53 | HO.POSTANES ---
Post Anesthesia Evaluation Post Anesthesia Evaluation Date of Service: 08/07/23 Vital Signs: Vital Signs Temp Pulse Resp BP Pulse Ox O2 Del Method FiO2 08/07/23 11:50 97.8 F 96 19 128/59 L 97 Room Air 08/07/23 09:49 97 140/89 H 08/07/23 07:46 97.8 F 97 18 140/89 H Room Air 95 08/07/23 07:46 86 16 08/07/23 04:26 20 08/07/23 04:00 97.7 F 86 20 122/63 97 Room Air Anesthesia: Monitored Mental Status: Awake Pain Control: Satisfactory Nausea/Vomiting: None Hydration: Adequate Anesthesia-Related Issues: No Anes. Related Issues
--- NOTE | 2023-08-07 13:04 | HO.WOUND ---
Wound Consult: Initial 73yr old [place] [facility] No08/05/23 14:34- See progress notes and H&P for detailed history. Arrival to bedside patient is agreeable to assessment and photo upload. She reports she has followed in the wound clinic in the past but no recently. See progress notes for details. Coccyx Etiology: Unstageable Pressure Injury - Present on Admission Measurements: see chart for detailed measurements Wound Bed: Adherent moist yellow slough Drainage / Odor: Scant cole yellow drainage - no odor noted Edges: ? Macerated and defined Silvia wound: ? Macerated -moist with blanchable erythema No Induration, No Fluctuance, No Erythema, No Warmth Pain: Pain reported Goals of Treatment: ? Moist wound healing and autolytic debridement Left Forearm Etiology: Abrasion Measurements: see chart for detailed measurements Wound Bed: Stable scab Drainage / Odor: None Edges: ?Irregular well defined and attached Silvia wound: Intact - significant scarring and tissue abnormalities noted ? No Induration, No Fluctuance, No Erythema, No Warmth Pain: Mild Pain reported Goals of Treatment: ? Moist wound healing and autolytic debridement. The scab is stable and intact - traditionally would not cover but pt requests covering as she reports the scab historically have lead to further wound development. She denies picking and scratching. Bilateral lower arms have significant scaring noted. Right AC / Arm site Etiology: Nonhealing wound Measurements: see chart for detailed measurements Wound Bed: Red moist tissue with adherent yellow slough along the edges Drainage / Odor: Creamy yellow cole drainage observed on wound bed easily removed with cleansing and on the dressing at time of removal. Mild odor noted. Edges: Epibole and scarring noted Silvia wound: Intact ? No Induration, No Fluctuance, No Erythema, No Warmth Pain: Pain reported Goals of Treatment: ? Moist wound healing and autolytic debridement Recommendations: 1. Turn and Reposition every 2 hours and as needed for patient comfort consider use of wedges available in the storeroom. 2. Off Load all bony prominences with use of pillows, wedges and heel boots. 3. Monitor for incontinence and moisture control. 4. Provide adequate and supplemental nutrition. 5. Order or Continue low air loss mattress. 6.Coccyx - Off Load Pressure - Cleanse with normal saline and pat dry. ?Apply Triad to silvia-wound, lightly pack coccyx with Durafiber AG cover with sacral foam dressing. ?Change Daily or as needed for soiling. 7. Right Arm AC - Cleanse with normal saline and pat dry. ?Apply skin prep to silvia-wound, lightly pack with Durafiber AG cover with foam dressing. ?Change Daily. 8. Left Forearm - Cleanse with NS, Pat dry. Cover scabbed area with Hydrocolloid dressing - this will soften the scab and aid in atraumatic removal and allow for moist wound healing. Change every 3 days. Re-consult wound care Nurse for wound deterioration or wound changes.
[2023-08-07] MEDS: Albuterol Sulfate (0.083%) 2.5 MG/3 ML VIAL.NEB INHALE (15:11)
--- NOTE | 2023-08-07 18:30 | PC.NURSE ---
Patient c/o pain to her low back and coccyx area, medicated patient with PRN pain medication with some relief, frequently repositioned patient, wound consult placed for the coccyx pressure injury.
[2023-08-07] MEDS: Zolpidem Tartrate 5 MG TABLET PO (20:09)
[2023-08-07] MEDS: Melatonin 3 MG TABLET 6 MG PO (20:09)
[2023-08-08] VITALS (9 sets, daily range): BP systolic 114–147; BP diastolic 60–89; PULSE 78–102; RESP 16–20; TEMP 36.2–37.1; O2SAT 94–98; BMI 18.1
[2023-08-08] MEDS: Morphine Sulfate 4 MG/ML CARTRIDGE IVPUSH ×2 (05:32→17:00)
[2023-08-08 05:56] LABS: MANUAL DIFF FLAG NO
[2023-08-08 06:23] LABS: Basophils Percent Auto 0.4 % (0-2); Eosinophils Absolute Auto 0.1 X10*3/uL (0.0-0.4); Eosinophils Percent Auto 0.7 % (0-4); Hematocrit 27.8 % (37.0-47.0); Hemoglobin 8.9 g/dl (12.0-16.0); Imm Gran Abs Auto 0.08 X10*3/uL (0.00-0.03); Imm Gran Pct Auto 0.9 % (0.0-0.4); Lymphocytes Absolute Auto 2.4 X10*3/uL (1.2-4.9); Lymphocytes Percent Auto 28.5 % (20-40); Mean Corpuscular Hemoglobin 30.6 pg (27.0-33.0); Mean Corpuscular Volume 95.5 fL (80.0-98.0); Mean Platelet Volume 9.9 fL (9.4-12.3); Monocytes Absolute Auto 0.5 X10*3/uL (0.1-1.2); Monocytes Percent Auto 6.3 % (2-11); NRBC Pct Auto 0.5 /100WBC (0.0-0.2); Neutrophils Absolute Auto 5.3 x10*3/uL (2.0-8.3); Neutrophils Percent Auto 63.2 % (45-73); Platelet Count 208 X10*3/uL (160-400); Red Blood Count 2.91 X10*6/uL (4.20-5.50); Red Cell Distribution Width 17.8 % (11.0-16.0); White Blood Count 8.5 X10*3/uL (4.8-10.8)
[2023-08-08 06:42] LABS: Alanine Aminotransferase 6 U/L (0-31); Albumin Level 2.1 g/dL (3.5-5.0); Alkaline Phosphatase 75 U/L (39-117); Anion Gap 14 (12-20); Aspartate Amino Transferase 6 U/L (5-31); Bilirubin Total 0.3 mg/dL (0.0-1.0); Blood Urea Nitrogen 20 mg/dL (9-16); Calcium 8.1 mg/dL (8.4-10.2); Carbon Dioxide 19 mmol/L (22-29); Chloride 109 mmol/L (96-108); Creatinine Clr Calc Pharmacy 47.7; Estimated Glomerular Filt Rate > 60; Glucose Fasting 96 mg/dL (60-99); Potassium 4.8 mmol/L (3.3-5.1); Sodium 137 mmol/L (135-145); Total Protein 5.8 g/dL (6.5-8.0)
[2023-08-08] MEDS: Fluticasone Propionate 250 MCG BLST.W.DEV 1 PUFF INHALE ×2 (07:44→19:15)
--- NOTE | 2023-08-08 08:40 | MHC.CM.PN ---
Per WINDOW INSTALLATION SUBCONTRACTOR, Patient has bacteria in her urine and a U/A has been ordered; Patient is not yet medically cleared for dc. PT is recommending STR and [facility] is following for bed availability. CM will follow.
[2023-08-08] MEDS: Omeprazole 20 MG CAPSULE.DR PO ×2 (08:59→20:14)
[2023-08-08] MEDS: Ferrous Sulfate 324 MG TABLET.DR PO ×2 (08:59→20:14)
[2023-08-08] MEDS: Montelukast Sodium 10 MG TABLET PO (08:59)
[2023-08-08] MEDS: Cholecalciferol (Vitamin D3) 25 MCG TABLET PO (08:59)
[2023-08-08] MEDS: Acetaminophen 325 MG TABLET 650 MG PO (09:04)
--- NOTE | 2023-08-08 10:25 | HO.PM.IMPN ---
Subjective Subjective Date of Service: 08/08/23 Review of Systems Follow up GI bleed no further epsiodes now with GNR bacteremia Physical Exam Vital Signs: Vital Signs: Last Vital Signs Temp 97.8 F 08/08/23 07:12 Pulse 91 08/08/23 07:46 Resp 16 08/08/23 07:46 BP 114/65 08/08/23 07:12 Pulse Ox 97 08/08/23 07:12 O2 Del Method Room Air 08/08/23 07:12 O2 Flow Rate 3 08/06/23 15:13 FiO2 95 08/07/23 07:46 BMI result Body Mass Index 18.1 Appearing in no acute distress lung sounds are clear to auscultation heart regular rate rhythm, clear S1, S2 positive bowel sounds, abdomen is soft, nontender neuro patient is alert x3, no focal deficits wounds coccyx, unstageable, left forearm abrasion, right AC nonhealing wound Objective Data Active Medications Acetaminophen (Acetaminophen 325 Mg Tablet) 650 mg PO Q6H PRN PRN Reason: Pain, Mild (Pain Scale 1-3) Last Admin: 08/08/23 09:04 Dose: 650 mg Documented By: TAMEKA Albuterol Sulfate (Albuterol Sulfate (0.083%) 2.5 Mg/3 Ml Vial.Neb) 2.5 mg INHALE Q4H PRN PRN Reason: Shortness Of Breath Or Wheezing Last Admin: 08/07/23 15:11 Dose: 2.5 mg Documented By: WILFRID Albuterol Sulfate (Albuterol Sulfate 90 Mcg 8 Gm Inhaler) 2 puff INHALE Q4H PRN PRN Reason: Shortness Of Breath Or Wheezing Albuterol Sulfate (Albuterol Sulfate (0.083%) 2.5 Mg/3 Ml Vial.Neb) 2.5 mg INHALE ONCE PRN PRN Reason: Shortness of Breath/Wheezing Clonazepam (Clonazepam 1 Mg Tablet) 1 mg PO BEDTIME PRN PRN Reason: Anxiety Last Admin: 08/06/23 21:37 Dose: 1 mg Documented By: BLAYNE Ferrous Sulfate (Ferrous Sulfate 324 Mg Tablet.) 324 mg PO BID GETACHEW Last Admin: 08/08/23 08:59 Dose: 324 mg Documented By: TAMEKA Fluticasone Propionate (Fluticasone Propionate 250 Mcg Blst.W.Dev) 1 puff INHALE RBID COUNT INCLUDES THE [facility] Last Admin: 08/08/23 07:44 Dose: 1 puff Documented By: WILFRID Ceftriaxone Sodium 1 gm/ (Sodium Chloride) 50 mls @ 100 mls/hr IV Q24H COUNT INCLUDES THE [facility] Last Admin: 08/08/23 09:05 Dose: Not Given Documented By: TAMEKA Non-Admin Reason: No Access Melatonin (Melatonin 3 Mg Tablet) 6 mg PO BEDTIME PRN PRN Reason: Insomnia Last Admin: 08/07/23 20:09 Dose: 6 mg Documented By: BLAYNE Montelukast Sodium (Montelukast Sodium 10 Mg Tablet) 10 mg PO DAILY COUNT INCLUDES THE [facility] Last Admin: 08/08/23 08:59 Dose: 10 mg Documented By: TAMEKA Morphine Sulfate (Morphine Sulfate 4 Mg/Ml Cartridge) 4 mg IVPUSH Q6H PRN; Protocol PRN Reason: Pain, Severe (Pain Scale 7-10) Last Admin: 08/08/23 05:32 Dose: 4 mg Documented By: BLAYNE Comments: administered subcu approved by Dr Hernández Omeprazole (Omeprazole 20 Mg Capsule.) 20 mg PO BID COUNT INCLUDES THE [facility] Last Admin: 08/08/23 08:59 Dose: 20 mg Documented By: TAMEKA Ondansetron HCl (Ondansetron Hcl 4 Mg/2 Ml Vial) 4 mg IVPUSH Q8H PRN PRN Reason: Nausea and Vomiting Sodium Biphosphate/Sodium Phosphate (Sodium Phosphate,[place]-Dibasic 133 Ml Enema) 133 ml [place] ONCE PRN PRN Reason: Poor Colonoscopy Prep Results Last Admin: 08/06/23 12:59 Dose: 133 ml Documented By: VIVEK Sodium Biphosphate/Sodium Phosphate (Sodium Phosphate,[place]-Dibasic 133 Ml Enema) 133 ml [place] ONCE PRN PRN Reason: Poor Colonoscopy Prep Results Sodium Chloride (0.9 % Sodium Chloride Flush 3 Ml Syringe) 3 ml IVFLUSH QSHIFT COUNT INCLUDES THE [facility] Last Admin: 08/08/23 08:58 Dose: Not Given Documented By: TAMEKA Non-Admin Reason: No Access Tiotropium [place] (Tiotropium [place] 2.5 Mcg Inhaler) 2 puff INHALE DAILY COUNT INCLUDES THE [facility] Last Admin: 08/08/23 07:44 Dose: 2 puff Documented By: WILFRID Tramadol HCl (Tramadol Hcl 50 Mg Tablet) 50 mg PO Q8H PRN PRN Reason: Pain, Moderate(Pain Scale 4-6) Last Admin: 08/07/23 17:21 Dose: 50 mg Documented By: BOBBY Vitamin D (Cholecalciferol (Vitamin D3) 25 Mcg Tablet) 25 mcg PO DAILY GETACHEW Last Admin: 08/08/23 08:59 Dose: 25 mcg Documented By: TAMEKA Zolpidem Tartrate (Zolpidem Tartrate 5 Mg Tablet) 5 mg PO BEDTIME PRN PRN Reason: Insomnia Last Admin: 08/07/23 20:09 Dose: 5 mg Documented By: ÁNGELAC Labs 08/08/23 05:48 08/08/23 05:48 Labs: Laboratory Results - last 24 hr 08/08/23 08/08/23 08/08/23 05:48 05:48 05:48 MCV 95.5 Cancelled MCH 30.6 Cancelled MCHC 32.0 RDW Plt Count MPV Immature Gran % (Auto) Neut % (Auto) Lymph % (Auto) [place] % (Auto) Eos % (Auto) Baso % (Auto) Lymph # (Auto) [place] # (Auto) Eos # (Auto) Baso # (Auto) Abs Immat Gran (auto) Absolute Neuts (auto) Absolute Nucleated RBC Nucleated RBC % (auto) Anion Gap Estim Creat Clear Calc Estimated GFR Random Glucose Fasting Glucose Calcium Total Bilirubin AST ALT Alkaline Phosphatase Total Protein Albumin 08/08/23 08/08/23 08/08/23 05:48 05:48 05:48 MCV MCH MCHC Cancelled RDW 17.8 H Cancelled Plt Count 208 Cancelled MPV 9.9 Immature Gran % (Auto) Neut % (Auto) Lymph % (Auto) [place] % (Auto) Eos % (Auto) Baso % (Auto) Lymph # (Auto) [place] # (Auto) Eos # (Auto) Baso # (Auto) Abs Immat Gran (auto) Absolute Neuts (auto) Absolute Nucleated RBC Nucleated RBC % (auto) Anion Gap Estim Creat Clear Calc Estimated GFR Random Glucose Fasting Glucose Calcium Total Bilirubin AST ALT Alkaline Phosphatase Total Protein Albumin 08/08/23 08/08/23 08/08/23 05:48 05:48 05:48 MCV MCH MCHC RDW Plt Count MPV Cancelled Immature Gran % (Auto) 0.9 H Neut % (Auto) 63.2 Lymph % (Auto) 28.5 [place] % (Auto) 6.3 Eos % (Auto) 0.7 Baso % (Auto) 0.4 Lymph # (Auto) 2.4 [place] # (Auto) 0.5 Eos # (Auto) 0.1 Baso # (Auto) 0.0 Abs Immat Gran (auto) 0.08 H Absolute Neuts (auto) 5.3 Absolute Nucleated RBC 0.040 H Cancelled Nucleated RBC % (auto) 0.5 H Cancelled Anion Gap 14 Estim Creat Clear Calc Estimated GFR Random Glucose Fasting Glucose Calcium Total Bilirubin AST ALT Alkaline Phosphatase Total Protein Albumin 08/08/23 08/08/23 08/08/23 05:48 05:48 05:48 MCV MCH MCHC RDW Plt Count MPV Immature Gran % (Auto) Neut % (Auto) Lymph % (Auto) [place] % (Auto) Eos % (Auto) Baso % (Auto) Lymph # (Auto) [place] # (Auto) Eos # (Auto) Baso # (Auto) Abs Immat Gran (auto) Absolute Neuts (auto) Absolute Nucleated RBC Nucleated RBC % (auto) Anion Gap Cancelled Estim Creat Clear Calc 47.7 Cancelled Estimated GFR > 60 Cancelled Random Glucose Cancelled Fasting Glucose 96 Calcium 8.1 L Total Bilirubin AST ALT Alkaline Phosphatase Total Protein Albumin 08/08/23 05:48 MCV MCH MCHC RDW Plt Count MPV Immature Gran % (Auto) Neut % (Auto) Lymph % (Auto) [place] % (Auto) Eos % (Auto) Baso % (Auto) Lymph # (Auto) [place] # (Auto) Eos # (Auto) Baso # (Auto) Abs Immat Gran (auto) Absolute Neuts (auto) Absolute Nucleated RBC Nucleated RBC % (auto) Anion Gap Estim Creat Clear Calc Estimated GFR Random Glucose Fasting Glucose Calcium Cancelled Total Bilirubin 0.3 AST 6 ALT 6 Alkaline Phosphatase 75 Total Protein 5.8 L Albumin 2.1 L Assessment and Plan (1) GI bleed: Status: Acute (2) Anemia: Status: Acute (3) Heme positive stool: Status: Acute Plan 73-year-old woman with a past medical history of COPD, hepatitis C, IV drug use, history of MRSA abscesses, history of osteomyelitis of the humerus, clavicle and scapula with MSSA bacteremia in June of 2023 and was treated with dental hygiene professor Abx at [facility]. She has chronic anemia baseline hematocrit from reviewing record at [facility] is 26 which is essentially unchanged. Pt reportedly had lab work done today and was told by PCP to come to the ED. Blood count here show hemoglobin of 8 and hematocrit 26. No active bleeding overnight GNR bacteremia 1/2 Rocephin Repeat cx check ua GIB, upper vs lower stable HH today EGD showing no esophagitis or barretts. moderate gastric gastric erythema, non bleeding stomach ulcers found continue PPI keep Hb>7.5 s/p colonoscopy dark stools noted in the sigmoid colon, ulcers noted, biopsies taken. ischemic colitis vs IBD, biopsy results followed up, o/p symptoms may also be related to cocain use as this can cause ischemic colitis Anemia possible blood loss, unknown at this time follow CBC Hypomagnesemia repleted follow-up clinically Wounds seen by wound nurse> turn and reposition every 2 hours as needed for comfort offload bony prominences, air loss mattress Coccyx wound, unstageable > cleanse with normal saline, apply triad to periwound, lightly pack coccyx with Durafiber Ag cover with sacral foam dressing, daily Right arm AC, abrasion > cleanse with normal saline, apply skin prep to periwound, lightly packed with Durafiber Ag, cover with foam dressing, daily Left forearm> cleanse with normal saline, or cover scabbed area with hydrocolloid dressing, change every [address] Chang full code DVT prophylaxis with scd boots in light of anemia DISPO patient homeless, PT consult>rec STR but patient refusing, stated that she will stay with her son, attempting to locate contact information Requires ongoing hospitalization for blood transfusion if needed and now bacteremia, awaiting final blood cx Quality Stroke Does the patient have a stroke diagnosis?: No VTE Prior VTE?: No VTE Risk Level:: Medical - moderate - high VTE Device Contraindication: N/A - Device Ordered VTE Drug Contraindication: Treatment Not Tolerated
[2023-08-08 11:32] LABS: Appearance Urine Clear; Color Urine Yellow; Glucose Urine UA Negative (Negative); Leukocyte Esterase Urine Small (1+) (Negative); Nitrite Urine Negative (Negative); Specific Gravity - Urine 1.015 (1.005-1.025); UMIC TRIGGER UACC YES; Urine Blood Negative (Negative); Urine Ketones Negative (Negative); Urine Protein Negative (Neg-Trace)
[2023-08-08 11:34] LABS: Bacteria Urine None Seen (None Seen); Hyaline Casts Urine 0-2 /LPF (0-2); RBC Urine 0-2 /HPF (0-2); UACC Culture Trigger YES
--- NOTE | 2023-08-08 12:05 | PC.NURSE ---
This RN was asked by Pj Brody NUT GRADER to place a peripheral IV on this PT while awaiting blood cx results and possible midline placement. #20g angio to L upper arm. catheter has + blood return and flushes with ease.pt denies pain with either. pt steven procedure well.
--- NOTE | 2023-08-08 13:24 | MHC.CM.PN ---
CM met with Patient at bedside to discuss PT's recommendation for STR. Patient is willing to consider [facility], who is following for dc planning. CM will follow.
--- NOTE | 2023-08-08 15:47 | P.CNID_ITS ---
History of Present Illness Data of Consult Service Date: 08/08/23 Requesting physician: Pinky Brody Primary Care Provider: Karla Ceballos MD HPI Reason for consult: Porphyromonas asaccharolytica bacteremia x 1 She presents after being told to come in for anemia. She has hematocrit 26 and concern over GI bleed. She had blood cultures drawn and 1/2 show P asaccharolytica bacteremia. She has no cellulitis or mouth pain or other symptoms. Review of Systems 2 Review of Systems: Yes all other systems are reviewed and are negative [facility] Past Medical History Medical History (Updated 08/08/23 @ 16:15 by Sheila Bailey MD) Bacteremia Chronic anemia MRSA cellulitis Asthma Legally blind Family History Family history: reviewed and not pertinent Social History Social History Household Members: None Housing: Homeless Do you presently have visiting nurse or other home services: No Unable to assess alcohol history related to: Unknown Alcohol intake: never Patient Tobacco Use Status: Never used Tobacco Smoked in Last 30 Days: No e-Cigarette/Vaping Use: Former Use Patient Interested in Nicotine Replacement: No Patient Given Instructions on How to Stop Smoking: No Second Hand Smoke Exposure: No Use of substances other than those prescribed or required for medical reasons: No Last Used Substance: Just Prior to Admission Last Used Substance Other:: denies, but tested positive for fentanyl Currently Displaying Signs/Symptoms of Drug Intoxication Withdrawal: No Any prior treatment program specific to substance use: Yes Have you been hit, kicked, punched, or otherwise hurt by someone within the past year? If so, by whom?: No Do you feel safe in your current relationship?: No Is there a partner from a previous relationship who is making you feel unsafe now?: No Are you made to feel afraid or neglected: No Are you DNR?: No Advance Directives: No Advance Directives Information Provided: No Advance Directives on File: No Do you have thoughts of harming others: None Do you have a plan to hurt others: No Plan Recently lost weight without trying: No Eating poorly because of decreased appetite: No Nutrition Risks: No Nutritional Risk Patient : No : No Poor oral hygiene: Yes service: No Meds Allergies Allergy/AdvReac Type Severity Reaction Status Date / Time cephalexin [From Keflex] Allergy Severe HIVES Verified 04/22/23 06:01 clindamycin [Clindamycin] Allergy Severe HIVES Verified 04/22/23 06:01 doxycycline [Doxycycline] Allergy Severe HIVES Verified 04/22/23 06:01 erythromycin base Allergy Severe HIVES Verified 04/22/23 06:01 [Erythromycin Base] levofloxacin [From Levaquin] Allergy Severe THROAT Verified 04/22/23 06:01 TIGHTENS nitrofurantoin Allergy Severe HIVES Verified 04/22/23 06:01 [From Macrobid] Penicillins Allergy Severe HIVES Verified 04/22/23 06:01 aspirin Allergy Unknown Hives Verified 04/22/23 06:01 linezolid [From ZYVOX] Allergy Unknown UNKNOWN Verified 04/22/23 06:01 Sulfa (Sulfonamide Allergy Unknown HIVES Verified 04/22/23 06:01 Antibiotics) [SULFA (SULFONAMIDE ANTIBIOTICS)] sulfacetamide Allergy Unknown Hives Verified 04/22/23 06:01 Erythromycin Allergy Unknown Hives Uncoded 04/22/23 06:01 seafood/shellfish Allergy Unknown Facial Uncoded 04/22/23 06:01 Swelling Sulfacet-R Allergy Unknown Hives Uncoded 04/22/23 06:01 Active Medications: Current Medications Acetaminophen (Acetaminophen 325 Mg Tablet) 650 mg PO Q6H PRN PRN Reason: Pain, Mild (Pain Scale 1-3) Last Admin: 08/08/23 09:04 Dose: 650 mg Albuterol Sulfate (Albuterol Sulfate (0.083%) 2.5 Mg/3 Ml Vial.Neb) 2.5 mg INHALE Q4H PRN PRN Reason: Shortness Of Breath Or Wheezing Last Admin: 08/07/23 15:11 Dose: 2.5 mg Albuterol Sulfate (Albuterol Sulfate 90 Mcg 8 Gm Inhaler) 2 puff INHALE Q4H PRN PRN Reason: Shortness Of Breath Or Wheezing Albuterol Sulfate (Albuterol Sulfate (0.083%) 2.5 Mg/3 Ml Vial.Neb) 2.5 mg INHALE ONCE PRN PRN Reason: Shortness of Breath/Wheezing Clonazepam (Clonazepam 1 Mg Tablet) 1 mg PO BEDTIME PRN PRN Reason: Anxiety Last Admin: 08/06/23 21:37 Dose: 1 mg Ferrous Sulfate (Ferrous Sulfate 324 Mg Tablet.) 324 mg PO BID [facility] Last Admin: 08/08/23 08:59 Dose: 324 mg Fluticasone Propionate (Fluticasone Propionate 250 Mcg Blst.W.Dev) 1 puff INHALE RBID [facility] Last Admin: 08/08/23 07:44 Dose: 1 puff Ceftriaxone Sodium 1 gm/ (Sodium Chloride) 50 mls @ 100 mls/hr IV Q24H [facility] Last Admin: 08/08/23 09:05 Dose: Not Given Melatonin (Melatonin 3 Mg Tablet) 6 mg PO BEDTIME PRN PRN Reason: Insomnia Last Admin: 08/07/23 20:09 Dose: 6 mg Montelukast Sodium (Montelukast Sodium 10 Mg Tablet) 10 mg PO DAILY [facility] Last Admin: 08/08/23 08:59 Dose: 10 mg Morphine Sulfate (Morphine Sulfate 4 Mg/Ml Cartridge) 4 mg IVPUSH Q6H PRN; Protocol PRN Reason: Pain, Severe (Pain Scale 7-10) Last Admin: 08/08/23 05:32 Dose: 4 mg Omeprazole (Omeprazole 20 Mg Capsule.) 20 mg PO BID [facility] Last Admin: 08/08/23 08:59 Dose: 20 mg Ondansetron HCl (Ondansetron Hcl 4 Mg/2 Ml Vial) 4 mg IVPUSH Q8H PRN PRN Reason: Nausea and Vomiting Sodium Biphosphate/Sodium Phosphate (Sodium Phosphate,[place]-Dibasic 133 Ml Enema) 133 ml [place] ONCE PRN PRN Reason: Poor Colonoscopy Prep Results Last Admin: 08/06/23 12:59 Dose: 133 ml Sodium Biphosphate/Sodium Phosphate (Sodium Phosphate,[place]-Dibasic 133 Ml Enema) 133 ml ID ONCE PRN PRN Reason: Poor Colonoscopy Prep Results Sodium Chloride (0.9 % Sodium Chloride Flush 3 Ml Syringe) 3 ml IVFLUSH QSHIFT [facility] Last Admin: 08/08/23 08:58 Dose: Not Given Tiotropium [place] (Tiotropium [place] 2.5 Mcg Inhaler) 2 puff INHALE DAILY [facility] Last Admin: 08/08/23 07:44 Dose: 2 puff Tramadol HCl (Tramadol Hcl 50 Mg Tablet) 50 mg PO Q8H PRN PRN Reason: Pain, Moderate(Pain Scale 4-6) Last Admin: 08/07/23 17:21 Dose: 50 mg Vitamin D (Cholecalciferol (Vitamin D3) 25 Mcg Tablet) 25 mcg PO DAILY [facility] Last Admin: 08/08/23 08:59 Dose: 25 mcg Zolpidem Tartrate (Zolpidem Tartrate 5 Mg Tablet) 5 mg PO BEDTIME PRN PRN Reason: Insomnia Last Admin: 08/07/23 20:09 Dose: 5 mg Home Medications Medication Instructions Recorded Confirmed Last Taken Type albuterol sulfate 2.5 mg/3 mL 2.5 mg inhalation Q4H PRN 08/03/23 08/03/23 Unknown History (0.083 %) solution for nebulization Shortness Of Breath Or Wheezing albuterol sulfate 90 mcg/actuation 2 puff inhalation Q4-6H PRN 08/03/23 08/03/23 Unknown History aerosol inhaler Shortness Of Breath Or Wheezing apixaban 2.5 mg tablet (Eliquis) 2.5 mg PO BID 08/03/23 Unknown History cholecalciferol (vitamin D3) 25 25 mcg PO DAILY 08/03/23 08/03/23 Unknown History mcg (1,000 unit) tablet clonazepam 1 mg tablet 1 mg PO BEDTIME PRN Anxiety 08/03/23 08/03/23 Unknown History ferrous sulfate 325 mg (65 mg 325 mg PO BID 08/03/23 08/03/23 Unknown History iron) tablet,delayed release fluticasone propionate 220 1 puff inhalation BID 08/03/23 08/03/23 Unknown History mcg/actuation HFA aerosol inhaler (Flovent HFA) ibuprofen 600 mg tablet 600 mg PO TID PRN pain 08/03/23 08/03/23 Unknown History montelukast 10 mg tablet 10 mg PO DAILY 08/03/23 08/03/23 Unknown History omeprazole 20 mg capsule,delayed 20 mg PO BID 08/03/23 08/03/23 Unknown History release tiotropium bromide 18 mcg capsule 1 cap inhalation DAILY 08/03/23 08/03/23 Unknown History with inhalation device (Spiriva with HandiHaler) zolpidem 5 mg tablet 5 mg PO BEDTIME PRN Insomnia 08/03/23 08/03/23 Unknown History Physical Exam 2 Vital Signs: Vital Signs: Last Vital Signs Temp 98.0 F 08/08/23 15:27 Pulse 102 H 08/08/23 15:27 Resp 19 08/08/23 15:27 BP 133/64 08/08/23 15:27 Pulse Ox 96 08/08/23 15:27 O2 Del Method Room Air 08/08/23 15:27 O2 Flow Rate 3 08/06/23 15:13 FiO2 95 08/07/23 07:46 BMI result Body Mass Index 18.1 Const: General: cooperative HEENT: Head: Yes normal to inspection Face and sinus: Yes normal facial exam Mouth: Normal oral and palatal mucosa present Teeth and gingiva: d entition normal Eyes: General: appearance normal, both eyes and all related structures P upils: Equal, round and reactive pupils present Resp: Effort & Inspection: normal respiratory effort Cardio: Rate: regular rate Rhythm: regular rhythm GI: Palpation (GI): Soft to palpation and nontender : General: Yes no CVA tenderness Back/Spine/Pelvis: Back: no CVA tenderness Skin: General skin exam: no rashes or lesions noted Neuro: General: moves all extremities Cranial nerves: Yes Equal, round and reactive pupils present Extrem: Other: somewhat slow to answer,?encephalopathy Psych: Appearance: grossly normal Results Labs 08/08/23 05:48 08/08/23 05:48 Labs: Short CBC 08/08/23 08/08/23 08/08/23 Range/Units 05:48 05:48 05:48 WBC 8.5 Cancelled (4.8-10.8) X10*3/uL Hgb 8.9 L Cancelled (12.0-16.0) g/dl Hct 27.8 L (37.0-47.0) % Plt Count (160-400) X10*3/uL 08/08/23 08/08/23 Range/Units 05:48 05:48 WBC (4.8-10.8) X10*3/uL Hgb (12.0-16.0) g/dl Hct Cancelled (37.0-47.0) % Plt Count 208 Cancelled (160-400) X10*3/uL BMP 08/08/23 08/08/23 08/08/23 05:48 05:48 05:48 Sodium 137 Cancelled Potassium 4.8 Cancelled Chloride 109 H Carbon Dioxide BUN Creatinine Calcium 08/08/23 08/08/23 08/08/23 05:48 05:48 05:48 Sodium Potassium Chloride Cancelled Carbon Dioxide 19 L Cancelled BUN 20 H Cancelled Creatinine 0.79 Calcium 08/08/23 08/08/23 05:48 05:48 Sodium Potassium Chloride Carbon Dioxide BUN Creatinine Cancelled Calcium 8.1 L Cancelled Liver Function 08/08/23 Range/Units 05:48 Total Bilirubin 0.3 (0.0-1.0) mg/dL AST 6 (5-31) U/L ALT 6 (0-31) U/L Alkaline Phosphatase 75 (39-117) U/L Albumin 2.1 L (3.5-5.0) g/dL Urine 08/08/23 Range/Units 11:00 Urine Color Yellow Urine Appearance Clear Urine pH 6.0 (5.0-9.0) Ur Specific [place] 1.015 (1.005-1.025) Urine Protein Negative (Neg-Trace) mg/dL Urine Glucose (UA) Negative (Negative) mg/dL Microbiology Microbiology Results: Microbiology 08/03/23 18:25 Blood - Venous Blood Culture - Final Porphyromonas asaccharolytica 08/03/23 18:22 Blood - Venous Blood Culture - Preliminary No growth after 48 hours. Assessment and Plan (1) Heme positive stool: Status: Acute (2) Bacteremia: Status: Acute Bacteremia, 1/2 positive and no signs of sepsis. Likely this is a contaminant then Plan Would stop antibiotics Follow symptomatically.
[2023-08-08] MEDS: 0.9 % Sodium Chloride Flush 3 ML SYRINGE IVFLUSH (23:08)
[2023-08-09] VITALS (12 sets, daily range): BP systolic 107–160; BP diastolic 46–84; PULSE 93–117; RESP 16–20; TEMP 36.2–36.8; O2SAT 92–99
[2023-08-09] MEDS: Albuterol Sulfate (0.083%) 2.5 MG/3 ML VIAL.NEB INHALE ×3 (06:25→19:24)
[2023-08-09] MEDS: Fluticasone Propionate 250 MCG BLST.W.DEV 1 PUFF INHALE ×2 (07:24→19:25)
[2023-08-09] MEDS: 0.9 % Sodium Chloride Flush 3 ML SYRINGE IVFLUSH ×2 (07:58→15:38)
[2023-08-09] MEDS: Omeprazole 20 MG CAPSULE.DR PO ×2 (07:58→20:11)
[2023-08-09] MEDS: Cholecalciferol (Vitamin D3) 25 MCG TABLET PO (07:58)
[2023-08-09] MEDS: Montelukast Sodium 10 MG TABLET PO (07:58)
[2023-08-09] MEDS: Ferrous Sulfate 324 MG TABLET.DR PO ×2 (07:58→20:11)
--- NOTE | 2023-08-09 13:23 | MHC.CM.PN ---
Per MD, blood cultures are still pending. Once CM is informed that Patient is medically cleared for dc, CM will approach Patient about her bed offer from [facility] ([facility] [place] has no bed availability).Gustavo lemon will be needed. CM will follow.
--- NOTE | 2023-08-09 13:31 | HO.PM.IMPN ---
Subjective Subjective Date of Service: 08/09/23 Interval History: Being followed for anemia, no bleeding noted, Complaining of rectal pain, denies nausea vomiting, no abdominal pain, denies fevers, no chills, no urinary symptoms, is agreeable to rehab placement. Review of Systems All other system reviewed and negative Physical Exam Vital Signs: Vital Signs: Last Vital Signs Temp 97.9 F 08/09/23 11:33 Pulse 99 08/09/23 11:33 Resp 20 08/09/23 11:33 BP 119/84 08/09/23 11:33 Pulse Ox 96 08/09/23 13:00 O2 Del Method Room Air 08/09/23 13:00 O2 Flow Rate 3 08/06/23 15:13 FiO2 95 08/07/23 07:46 BMI result Body Mass Index 18.1 Const: Other: General exam, sitting comfortably talking in full sentences,in no acute distress Neck no JVD Lungs clear to auscultation heart regular rate rhythm, clear S1, S2 GI abdomen is soft, nontender neuro alert oriented x3, no focal deficits skin bruising at neck wounds coccyx, unstageable, left forearm abrasion, right AC non healing wound Objective Data Active Medications Acetaminophen (Acetaminophen 325 Mg Tablet) 650 mg PO Q6H PRN PRN Reason: Pain, Mild (Pain Scale 1-3) Last Admin: 08/08/23 09:04 Dose: 650 mg Documented By: TAMEKA Albuterol Sulfate (Albuterol Sulfate (0.083%) 2.5 Mg/3 Ml Vial.Neb) 2.5 mg INHALE Q4H PRN PRN Reason: Shortness Of Breath Or Wheezing Last Admin: 08/09/23 06:25 Dose: 2.5 mg Documented By: LIZET Albuterol Sulfate (Albuterol Sulfate 90 Mcg 8 Gm Inhaler) 2 puff INHALE Q4H PRN PRN Reason: Shortness Of Breath Or Wheezing Albuterol Sulfate (Albuterol Sulfate (0.083%) 2.5 Mg/3 Ml Vial.Neb) 2.5 mg INHALE ONCE PRN PRN Reason: Shortness of Breath/Wheezing Ferrous Sulfate (Ferrous Sulfate 324 Mg Tablet.) 324 mg PO BID [facility] Last Admin: 08/09/23 07:58 Dose: 324 mg Documented By: TAMEKA Fluticasone Propionate (Fluticasone Propionate 250 Mcg Blst.W.Dev) 1 puff INHALE RBID [facility] Last Admin: 08/09/23 07:24 Dose: 1 puff Documented By: ARANZA Melatonin (Melatonin 3 Mg Tablet) 6 mg PO BEDTIME PRN PRN Reason: Insomnia Last Admin: 08/07/23 20:09 Dose: 6 mg Documented By: BLAYNE Montelukast Sodium (Montelukast Sodium 10 Mg Tablet) 10 mg PO DAILY [facility] Last Admin: 08/09/23 07:58 Dose: 10 mg Documented By: TAMEKA Morphine Sulfate (Morphine Sulfate 4 Mg/Ml Cartridge) 4 mg IVPUSH Q6H PRN; Protocol PRN Reason: Pain, Severe (Pain Scale 7-10) Last Admin: 08/08/23 17:00 Dose: 4 mg Documented By: TAMEKA Omeprazole (Omeprazole 20 Mg Capsule.Dr) 20 mg PO BID [facility] Last Admin: 08/09/23 07:58 Dose: 20 mg Documented By: TAMEKA Ondansetron HCl (Ondansetron Hcl 4 Mg/2 Ml Vial) 4 mg IVPUSH Q8H PRN PRN Reason: Nausea and Vomiting Sodium Biphosphate/Sodium Phosphate (Sodium Phosphate,[place]-Dibasic 133 Ml Enema) 133 ml [place] ONCE PRN PRN Reason: Poor Colonoscopy Prep Results Last Admin: 08/06/23 12:59 Dose: 133 ml Documented By: VIVEK Sodium Biphosphate/Sodium Phosphate (Sodium Phosphate,[place]-Dibasic 133 Ml Enema) 133 ml [place] ONCE PRN PRN Reason: Poor Colonoscopy Prep Results Sodium Chloride (0.9 % Sodium Chloride Flush 3 Ml Syringe) 3 ml IVFLUSH QSHIFT [facility] Last Admin: 08/09/23 07:58 Dose: 3 ml Documented By: TAMEKA Tiotropium [place] (Tiotropium [place] 2.5 Mcg Inhaler) 2 puff INHALE DAILY [facility] Last Admin: 08/09/23 07:24 Dose: 2 puff Documented By: ARANZA Vitamin D (Cholecalciferol (Vitamin D3) 25 Mcg Tablet) 25 mcg PO DAILY [facility] Last Admin: 08/09/23 07:58 Dose: 25 mcg Documented By: TAMEKA Labs 08/08/23 05:48 08/08/23 05:48 Microbiology Microbiology Results: Microbiology 08/08/23 Unknown Urine Culture - Preliminary Urine clean catch - Urine ibarra top Culture in progress. 08/03/23 18:22 Blood Culture - Final Blood - Venous No growth after 5 days. 08/03/23 18:25 Blood Culture - Final Blood - Venous Porphyromonas asaccharolytica Assessment and Plan (1) GI bleed: Status: Acute (2) Anemia: Status: Acute (3) Heme positive stool: Status: Acute Plan 73-year-old woman with a past medical history of COPD, hepatitis C, IV drug use, history of MRSA abscesses, history of osteomyelitis of the humerus, clavicle and scapula with MSSA bacteremia in June of 2023 and was treated with medical terminologist Abx at [facility]. She has chronic anemia baseline hematocrit from reviewing record at [facility] is 26 which is essentially unchanged. Pt reportedly had lab work done today and was told by PCP to come to the ED. Blood count here show hemoglobin of 8 and hematocrit 26. No active bleeding overnight GNR bacteremia 10/02 bc pos for Porphyromonas asaccharolytica in blood 10/02, contaminated according to Infectious Disease provider, no repeat workup warranted, antibiotics discontinued LGIB, /Anemia Underwent both upper endoscopy and lower endoscopy by Dr. Martinez EGD showing no esophagitis or barretts. moderate gastric gastric erythema, non bleeding stomach ulcers found Colonoscopy showed dark stools noted in the sigmoid colon, ulcers noted, biopsies taken, likely lower GI bleed from left-sided colitis question ischemic versus inflammatory bowel disease. symptoms may also be related to cocaine use as this can cause ischemic colitis continue PPI Follow CBC , keep Hb>7.5, Hypomagnesemia repleted Wounds Coccyx wound, unstageable > cleanse with normal saline, apply triad to periwound, lightly pack coccyx with Durafiber Ag cover with sacral foam dressing, daily Right arm AC, abrasion > cleanse with normal saline, apply skin prep to periwound, lightly packed with Durafiber Ag, cover with foam dressing, daily Left forearm> cleanse with normal saline, or cover scabbed area with hydrocolloid dressing, change every 3 days seen by wound nurse> turn and reposition every 2 hours as needed for comfort offload bony prominences, air loss mattress full code DVT prophylaxis with scd boots in light of anemia DISPO patient homeless, PT consult>rec STR patient agreed for rehab Requires ongoing hospitalization for close hematocrit monitoring and blood transfusion and safe disposition Quality Stroke Does the patient have a stroke diagnosis?: No VTE Prior VTE?: No VTE Risk Level:: Medical - moderate - high VTE Device Contraindication: N/A - Device Ordered VTE Drug Contraindication: Treatment Not Tolerated
--- NOTE | 2023-08-09 13:50 | MHC.CM.PN ---
CM met with Patient at bedside to discuss dc planning. Patient states that her Friend/Laura @ [phone] in [place] is going to allow her to stay with her at time of dc. CM spoke with Laura directly, who confirmed that this is accurate. CM will follow.
[2023-08-09] MEDS: Morphine Sulfate 4 MG/ML CARTRIDGE IVPUSH ×2 (15:38→21:59)
[2023-08-09] MEDS: Acetaminophen 325 MG TABLET 650 MG PO (20:11)
[2023-08-09] MEDS: Benzonatate 100 MG CAPSULE 200 MG PO (20:11)
[2023-08-09] MEDS: Melatonin 3 MG TABLET 6 MG PO (22:01)
[2023-08-10] VITALS (9 sets, daily range): BP systolic 103–147; BP diastolic 59–74; PULSE 102–114; RESP 10–19; TEMP 36.2–37.2; O2SAT 93–100
[2023-08-10] MEDS: Albuterol Sulfate (0.083%) 2.5 MG/3 ML VIAL.NEB INHALE (03:27)
[2023-08-10] MEDS: ondansetron HCL 4 MG/2 ML VIAL IVPUSH (03:34)
[2023-08-10] MEDS: Morphine Sulfate 4 MG/ML CARTRIDGE IVPUSH (06:29)
[2023-08-10] MEDS: Fluticasone Propionate 250 MCG BLST.W.DEV 1 PUFF INHALE ×2 (08:01→19:58)
--- NOTE | 2023-08-10 10:23 | MHC.CM.PN ---
Per PT/Ni, PT cannot recommend Home with services for Patient as a safe dc plan. CM spoke with MD, who agrees that Patient should go to STR and Patient has a bed at [facility].CM attempted to meet with Patient to discuss dc planning, but Patient had recently received Morphine (per MD) and CM was not able to awake her. Per MD, will reassess Patient at noon for ? of readiness for dc today to STR/SNF. Should Patient dc to SNF/STR over the weekend, [facility] good danitza policy, that allows Patient to be dc'd without insurance auth. CM will follow.
--- NOTE | 2023-08-10 12:20 | MHC.CLN ---
F/U PT IS UNDER WT FOR HT BMI 18 WITH LARGE FLUCTUATIONS IN WT HX WITH INCREASED NUTRITION RISK R/T ACTIVE POLYSUBSTANCE ABUSE, HOWEVER PT DENIES CHANGE IN APPETITE NFPE REVEALS NORMAL SUBCUTANEOUS FAT AND MUSCLE WITHOUT S/S MALNUTRITION AT THIS TIME PT WITH INCREASED NUTRITION RISK R/T PRESSURE INJURY PO INTAKE VARIABLE RANGING FROM 25-75% DIET RX: REGULAR-APPROPRIATE PT RECEPTIVE TO DRINKING SUPPLEMENT TO INCREASE KCALS PT RECEIVING ENSURE CLEAR BID AND MAGIC CUP TID WITH MEAL TRAYS TO INCREASE KCALS MONITOR PO INTAKE AND SUPPLEMENT ACCEPTANCE
[2023-08-10] MEDS: 0.9 % Sodium Chloride Flush 3 ML SYRINGE IVFLUSH ×3 (13:10→15:24)
[2023-08-10 13:22] LABS: Glucose, Whole Blood 101 mg/dL (60-115)
--- NOTE | 2023-08-10 14:09 | HO.PM.IMPN ---
Subjective Subjective Date of Service: 08/10/23 Interval History: Patient noted to be somnolent but arousable with verbal stimuli most of the morning, following commands with all 4 extremities blood sugars >100, stable vitals Patient received 4 mg of IV morphine at 06:00. Review of Systems Unable to obtain due to mental status Physical Exam Vital Signs: Vital Signs: Last Vital Signs Temp 98.7 F 08/10/23 11:18 Pulse 114 H 08/10/23 11:18 Resp 10 L 08/10/23 11:18 BP 134/59 L 08/10/23 11:18 Pulse Ox 93 08/10/23 11:18 O2 Del Method Nasal Cannula 08/10/23 11:18 O2 Flow Rate 2 08/10/23 11:18 FiO2 95 08/07/23 07:46 BMI result Body Mass Index 18.1 Const: Other: General exam, somnolent arousable with verbal stimuli,in no acute distress Neck no JVD Right eye blind Lungs clear to auscultation heart regular rate rhythm, clear S1, S2 GI abdomen soft, bowel sounds audible, nontender neuro moving all 4 extremities open eyes to verbal commands, speech clear, face symmetrical, no focal deficits skin neck ecchymosis wounds coccyx, unstageable, left forearm abrasion, right AC non healing wound Objective Data Active Medications Acetaminophen (Acetaminophen 325 Mg Tablet) 650 mg PO Q6H PRN PRN Reason: Pain, Mild (Pain Scale 1-3) Last Admin: 08/09/23 20:11 Dose: 650 mg Documented By: CLAUDIA Albuterol Sulfate (Albuterol Sulfate (0.083%) 2.5 Mg/3 Ml Vial.Neb) 2.5 mg INHALE Q4H PRN PRN Reason: Shortness Of Breath Or Wheezing Last Admin: 08/10/23 03:27 Dose: 2.5 mg Documented By: THEODORE Albuterol Sulfate (Albuterol Sulfate 90 Mcg 8 Gm Inhaler) 2 puff INHALE Q4H PRN PRN Reason: Shortness Of Breath Or Wheezing Albuterol Sulfate (Albuterol Sulfate (0.083%) 2.5 Mg/3 Ml Vial.Neb) 2.5 mg INHALE ONCE PRN PRN Reason: Shortness of Breath/Wheezing Benzonatate (Benzonatate 100 Mg Capsule) 200 mg PO TID PRN PRN Reason: Cough Last Admin: 08/09/23 20:11 Dose: 200 mg Documented By: CLAUDIA Ferrous Sulfate (Ferrous Sulfate 324 Mg Tablet.) 324 mg PO BID [facility] Last Admin: 08/10/23 10:45 Dose: Not Given Documented By: BOBBY Non-Admin Reason: Patient Condition Contraindication Fluticasone Propionate (Fluticasone Propionate 250 Mcg Blst.W.Dev) 1 puff INHALE RBID [facility] Last Admin: 08/10/23 08:01 Dose: 1 puff Documented By: CALLI Melatonin (Melatonin 3 Mg Tablet) 6 mg PO BEDTIME PRN PRN Reason: Insomnia Last Admin: 08/09/23 22:01 Dose: 6 mg Documented By: CLAUDIA Montelukast Sodium (Montelukast Sodium 10 Mg Tablet) 10 mg PO DAILY [facility] Last Admin: 08/10/23 10:45 Dose: Not Given Documented By: BOBBY Non-Admin Reason: Patient Condition Contraindication Omeprazole (Omeprazole 20 Mg Capsule.) 20 mg PO BID [facility] Last Admin: 08/10/23 10:45 Dose: Not Given Documented By: BOBBY Non-Admin Reason: Patient Condition Contraindication Ondansetron HCl (Ondansetron Hcl 4 Mg/2 Ml Vial) 4 mg IVPUSH Q8H PRN PRN Reason: Nausea and Vomiting Last Admin: 08/10/23 03:34 Dose: 4 mg Documented By: CLAUDIA Sodium Biphosphate/Sodium Phosphate (Sodium Phosphate,[place]-Dibasic 133 Ml Enema) 133 ml [place] ONCE PRN PRN Reason: Poor Colonoscopy Prep Results Last Admin: 08/06/23 12:59 Dose: 133 ml Documented By: VIVEK Sodium Biphosphate/Sodium Phosphate (Sodium Phosphate,[place]-Dibasic 133 Ml Enema) 133 ml [place] ONCE PRN PRN Reason: Poor Colonoscopy Prep Results Sodium Chloride (0.9 % Sodium Chloride Flush 3 Ml Syringe) 3 ml IVFLUSH QSHIFT [facility] Last Admin: 08/10/23 13:10 Dose: 3 ml Documented By: BOBBY Tiotropium [place] (Tiotropium [place] 2.5 Mcg Inhaler) 2 puff INHALE DAILY [facility] Last Admin: 08/10/23 08:01 Dose: 2 puff Documented By: CALLI Vitamin D (Cholecalciferol (Vitamin D3) 25 Mcg Tablet) 25 mcg PO DAILY [facility] Last Admin: 08/10/23 10:45 Dose: Not Given Documented By: BOBBY Non-Admin Reason: Patient Condition Contraindication Labs 08/10/23 14:14 08/10/23 14:14 Labs: Laboratory Results - last 24 hr 08/10/23 13:17 POC Glucose 101 Microbiology Microbiology Results: Microbiology 08/08/23 Unknown Urine Culture - Final Urine clean catch - Urine ibarra top 08/09/23 09:33 Blood Culture - Preliminary Blood - Venous No growth after 24 hours. 08/09/23 06:13 Blood Culture - Preliminary Blood - Venous No growth after 24 hours. Assessment and Plan (1) GI bleed: Status: Acute (2) Anemia: Status: Acute (3) Heme positive stool: Status: Acute Plan 73-year-old woman with a past medical history of COPD, hepatitis C, IV drug use, history of MRSA abscesses, history of osteomyelitis of the humerus, clavicle and scapula with MSSA bacteremia in June of 2023 and was treated with predatory animal exterminator Abx at [facility]. She has chronic anemia baseline hematocrit from reviewing record at [facility] is 26 which is essentially unchanged. Pt reportedly had lab work done today and was told by PCP to come to the ED. Blood count here show hemoglobin of 8 and hematocrit 26. No active bleeding overnight Acute toxic metabolic encephalopathy Likely due to narcotic medications, stable vitals, blood sugars normal WBC stable hematocrit normal renal function elevated potassium likely hemolyzed Patient opens eyes to verbal stimuli, moving all 4 extremities, speech clear, blood cultures x2 11 9 showed no growth, recent urine culture negative Will repeat UA, give IV fluids, DC IV morphine lower dose of melatonin follow clinical course,follow bmp GNR bacteremia ruled out /2 bc pos for Porphyromonas asaccharolytica in blood 2, contaminated according to Infectious Disease provider, no repeat workup warranted, antibiotics discontinued LGIB, /Anemia Underwent both upper endoscopy and lower endoscopy by Dr. Martinez EGD showing no esophagitis or barretts. moderate gastric gastric erythema, non bleeding stomach ulcers found Colonoscopy showed dark stools noted in the sigmoid colon, ulcers noted, biopsies taken, likely lower GI bleed from left-sided colitis question ischemic versus inflammatory bowel disease. symptoms may also be related to cocaine use as this can cause ischemic colitis continue PPI Follow CBC , keep Hb>7.5, Hypomagnesemia repleted Wounds Coccyx wound, unstageable > cleanse with normal saline, apply triad to periwound, lightly pack coccyx with Durafiber Ag cover with sacral foam dressing, daily Right arm AC, abrasion > cleanse with normal saline, apply skin prep to periwound, lightly packed with Durafiber Ag, cover with foam dressing, daily Left forearm> cleanse with normal saline, or cover scabbed area with hydrocolloid dressing, change every 3 days seen by wound nurse> turn and reposition every 2 hours as needed for comfort offload bony prominences, air loss mattress full code DVT prophylaxis with scd boots in light of anemia DISPO patient homeless, PT consult>rec STR patient agreed for rehab then later decided to go home with friend, at present patient not clinically stable for discharge will readdress discharge planned with patient Requires ongoing hospitalization for acute change in mental status need close inpatient monitoring and safe disposition Quality Stroke Does the patient have a stroke diagnosis?: No VTE Prior VTE?: No VTE Risk Level:: Medical - moderate - high VTE Device Contraindication: N/A - Device Ordered VTE Drug Contraindication: Treatment Not Tolerated
[2023-08-10 14:32] LABS: Hematocrit 27.9 % (37.0-47.0); Hemoglobin 8.9 g/dl (12.0-16.0); Mean Corpuscular HGB Conc 31.9 g/dl (31.0-35.0); Mean Corpuscular Hemoglobin 30.2 pg (27.0-33.0); Mean Corpuscular Volume 94.6 fL (80.0-98.0); Mean Platelet Volume 9.5 fL (9.4-12.3); Platelet Count 309 X10*3/uL (160-400); Red Blood Count 2.95 X10*6/uL (4.20-5.50); Red Cell Distribution Width 17.2 % (11.0-16.0)
[2023-08-10 14:39] LABS: Anion Gap 11 (12-20); Blood Urea Nitrogen 26 mg/dL (9-16); Calcium 8.3 mg/dL (8.4-10.2); Carbon Dioxide 23 mmol/L (22-29); Chloride 104 mmol/L (96-108); Creatinine Clr Calc Pharmacy 47.1; Estimated Glomerular Filt Rate > 60; Glucose Random 104 mg/dL (60-115); Potassium 5.7 mmol/L (3.3-5.1); Sodium 132 mmol/L (135-145)
[2023-08-10] MEDS: Dextrose 5 % and Lactated Ring 1,000 ML 100 ML IVCONT (15:23)
--- NOTE | 2023-08-10 15:37 | MHC.CM.PN ---
Per MD, Patient is not medically cleared for dc today.
[2023-08-10] MEDS: Omeprazole 20 MG CAPSULE.DR PO (22:38)
[2023-08-10] MEDS: Ferrous Sulfate 324 MG TABLET.DR PO (22:38)
[2023-08-10] MEDS: Acetaminophen 325 MG TABLET 650 MG PO (22:38)
[2023-08-11] VITALS (10 sets, daily range): BP systolic 119–162; BP diastolic 48–87; PULSE 92–111; RESP 18–20; TEMP 36.1–36.9; O2SAT 92–98
--- NOTE | 2023-08-11 04:25 | PC.NURSE ---
0330 noted IV site to LUE swollen, and pt complaining of pain to area. IV line discontinued, notified of pt being without IV access at this time.
[2023-08-11] MEDS: Fluticasone Propionate 250 MCG BLST.W.DEV 1 PUFF INHALE ×2 (07:33→18:57)
[2023-08-11] MEDS: Omeprazole 20 MG CAPSULE.DR PO ×2 (08:17→20:59)
[2023-08-11] MEDS: Cholecalciferol (Vitamin D3) 25 MCG TABLET PO (08:19)
[2023-08-11] MEDS: Ferrous Sulfate 324 MG TABLET.DR PO ×2 (08:19→20:59)
[2023-08-11] MEDS: Acetaminophen 325 MG TABLET 650 MG PO ×2 (08:19→16:49)
[2023-08-11] MEDS: Montelukast Sodium 10 MG TABLET PO (08:19)
[2023-08-11 08:37] LABS: Anion Gap 11 (12-20); Blood Urea Nitrogen 23 mg/dL (9-16); Calcium 8.2 mg/dL (8.4-10.2); Carbon Dioxide 23 mmol/L (22-29); Chloride 106 mmol/L (96-108); Estimated Glomerular Filt Rate > 60; Glucose Random 88 mg/dL (60-115); Potassium 5.7 mmol/L (3.3-5.1); Sodium 134 mmol/L (135-145)
--- NOTE | 2023-08-11 14:49 | HO.PM.IMPN ---
Subjective Subjective Date of Service: 08/11/23 Interval History: Awake alert resting comfortably this morning, in regard to yesterday patient admitted that she was catching up on her sleep, complaining of rectal discomfort, And left upper arm discomfort at site of IV infiltration. Review of Systems All other system reviewed and negative. Physical Exam Vital Signs: Vital Signs: Last Vital Signs Temp 98.5 F 08/11/23 11:19 Pulse 92 08/11/23 11:19 Resp 20 08/11/23 11:19 BP 125/76 08/11/23 11:19 Pulse Ox 98 08/11/23 13:00 O2 Del Method Room Air 08/11/23 13:00 O2 Flow Rate 2 08/10/23 11:18 FiO2 95 08/07/23 07:46 BMI result Body Mass Index 18.1 Const: Other: General exam, awake alert this morning talking in full sentences,in no acute distress Neck no JVD Right eye blind Lungs clear to auscultation heart regular rate rhythm, clear S1, S2 GI abdomen soft, bowel sounds audible, nontender neuro awake alert x3, speech clear, face symmetrical, no focal deficits Left for upper extremity mild swelling no redness few areas of ecchymosis skin neck ecchymosis wounds coccyx, unstageable, left forearm abrasion, right AC non healing wound Objective Data Active Medications Acetaminophen (Acetaminophen 325 Mg Tablet) 650 mg PO Q6H PRN PRN Reason: Pain, Mild (Pain Scale 1-3) Last Admin: 08/11/23 08:19 Dose: 650 mg Documented By: BOBBY Albuterol Sulfate (Albuterol Sulfate (0.083%) 2.5 Mg/3 Ml Vial.Neb) 2.5 mg INHALE Q4H PRN PRN Reason: Shortness Of Breath Or Wheezing Last Admin: 08/10/23 03:27 Dose: 2.5 mg Documented By: THEODORE Albuterol Sulfate (Albuterol Sulfate 90 Mcg 8 Gm Inhaler) 2 puff INHALE Q4H PRN PRN Reason: Shortness Of Breath Or Wheezing Albuterol Sulfate (Albuterol Sulfate (0.083%) 2.5 Mg/3 Ml Vial.Neb) 2.5 mg INHALE ONCE PRN PRN Reason: Shortness of Breath/Wheezing Benzonatate (Benzonatate 100 Mg Capsule) 100 mg PO TID PRN PRN Reason: Cough Ferrous Sulfate (Ferrous Sulfate 324 Mg Tablet.) 324 mg PO BID [facility] Last Admin: 08/11/23 08:19 Dose: 324 mg Documented By: BOBBY Fluticasone Propionate (Fluticasone Propionate 250 Mcg Blst.W.Dev) 1 puff INHALE RBID [facility] Last Admin: 08/11/23 07:33 Dose: 1 puff Documented By: ARANZA Melatonin (Melatonin 3 Mg Tablet) 3 mg PO BEDTIME PRN PRN Reason: Insomnia Montelukast Sodium (Montelukast Sodium 10 Mg Tablet) 10 mg PO DAILY [facility] Last Admin: 08/11/23 08:19 Dose: 10 mg Documented By: BOBBY Omeprazole (Omeprazole 20 Mg Capsule.) 20 mg PO BID [facility] Last Admin: 08/11/23 08:17 Dose: 20 mg Documented By: BOBBY Ondansetron HCl (Ondansetron Hcl 4 Mg/2 Ml Vial) 4 mg IVPUSH Q8H PRN PRN Reason: Nausea and Vomiting Last Admin: 08/10/23 03:34 Dose: 4 mg Documented By: CLAUDAI Sodium Biphosphate/Sodium Phosphate (Sodium Phosphate,[place]-Dibasic 133 Ml Enema) 133 ml [place] ONCE PRN PRN Reason: Poor Colonoscopy Prep Results Last Admin: 08/06/23 12:59 Dose: 133 ml Documented By: VIVEK Sodium Biphosphate/Sodium Phosphate (Sodium Phosphate,[place]-Dibasic 133 Ml Enema) 133 ml [place] ONCE PRN PRN Reason: Poor Colonoscopy Prep Results Sodium Chloride (0.9 % Sodium Chloride Flush 3 Ml Syringe) 3 ml IVFLUSH QSHIFT [facility] Last Admin: 08/11/23 08:05 Dose: Not Given Documented By: BOBBY Non-Admin Reason: No Access Tiotropium [place] (Tiotropium [place] 2.5 Mcg Inhaler) 2 puff INHALE DAILY [facility] Last Admin: 08/11/23 07:33 Dose: 2 puff Documented By: ARANZA Vitamin D (Cholecalciferol (Vitamin D3) 25 Mcg Tablet) 25 mcg PO DAILY [facility] Last Admin: 08/11/23 08:19 Dose: 25 mcg Documented By: HO.DOBROB Labs 08/10/23 14:14 08/11/23 07:42 Labs: Laboratory Results - last 24 hr 08/11/23 07:42 Anion Gap 11 L Estim Creat Clear Calc 53.0 Estimated GFR > 60 Random Glucose 88 Calcium 8.2 L Microbiology Microbiology Results: Microbiology 08/09/23 09:33 Blood Culture - Preliminary Blood - Venous No growth after 48 hours. 08/09/23 06:13 Blood Culture - Preliminary Blood - Venous No growth after 48 hours. 08/08/23 Unknown Urine Culture - Final Urine clean catch - Urine ibarra top Assessment and Plan (1) GI bleed: Status: Acute (2) Anemia: Status: Acute (3) Heme positive stool: Status: Acute Plan 73-year-old woman with a past medical history of COPD, hepatitis C, IV drug use, history of MRSA abscesses, history of osteomyelitis of the humerus, clavicle and scapula with MSSA bacteremia in June of 2023 and was treated with buttermaker Abx at [facility]. She has chronic anemia baseline hematocrit from reviewing record at [facility] is 26 which is essentially unchanged. Pt reportedly had lab work done today and was told by PCP to come to the ED. Blood count here show hemoglobin of 8 and hematocrit 26. No active bleeding overnight Acute toxic metabolic encephalopathy Resolved, was likely due to narcotic medications, patient awake alert at baseline, on narcotic discontinued recommend Tylenol as needed for pain GNR bacteremia ruled out /2 bc pos for Porphyromonas asaccharolytica in blood 2, contaminated according to Infectious Disease provider, no repeat workup warranted, antibiotics discontinued LGIB, /Anemia Underwent both upper endoscopy and lower endoscopy by Dr. Martinez EGD showing no esophagitis or barretts. moderate gastric gastric erythema, non bleeding stomach ulcers found Colonoscopy showed dark stools noted in the sigmoid colon, ulcers noted, biopsies taken, likely lower GI bleed from left-sided colitis question ischemic versus inflammatory bowel disease. also likley related to cocaine use as this can cause ischemic colitis . Pathology report from colonic mucosa showed no ischemic changes, findings likely due to infectious colitis, diverticular disease related colitis or inflammatory bowel disease, immunostains for CME and HSV pending continue PPI Repeat hematocrit 27.9 Rectal pain likely due to coccyx ulcer/no hemorrhoids, no diarrhea, continue position change Hypomagnesemia repleted Wounds Coccyx wound, unstageable > cleanse with normal saline, apply triad to periwound, lightly pack coccyx with Durafiber Ag cover with sacral foam dressing, daily Right arm AC, abrasion > cleanse with normal saline, apply skin prep to periwound, lightly packed with Durafiber Ag, cover with foam dressing, daily Left forearm> cleanse with normal saline, or cover scabbed area with hydrocolloid dressing, change every 3 days seen by wound nurse> turn and reposition every 2 hours as needed for comfort offload bony prominences, air loss mattress full code DVT prophylaxis with scd boots in light of anemia DISPO patient homeless, PT consult>rec STR patient refused to go to rehab since it is too far.CM arranging for safe disposition. Quality Stroke Does the patient have a stroke diagnosis?: No VTE Prior VTE?: No VTE Risk Level:: Medical - moderate - high VTE Device Contraindication: N/A - Device Ordered VTE Drug Contraindication: Treatment Not Tolerated
[2023-08-11] MEDS: Pramoxine HCl 1 % Rectal Foam 15 GM 1 APPL PR (21:41)
[2023-08-12] VITALS (7 sets, daily range): BP systolic 105–147; BP diastolic 51–65; PULSE 88–106; RESP 16–18; TEMP 36.1–37.2; O2SAT 96–98
[2023-08-12] MEDS: Fluticasone Propionate 250 MCG BLST.W.DEV 1 PUFF INHALE ×2 (07:53→19:39)
[2023-08-12] MEDS: Montelukast Sodium 10 MG TABLET PO (09:44)
[2023-08-12] MEDS: Ferrous Sulfate 324 MG TABLET.DR PO ×2 (09:44→19:32)
[2023-08-12] MEDS: Cholecalciferol (Vitamin D3) 25 MCG TABLET PO (09:44)
[2023-08-12] MEDS: Omeprazole 20 MG CAPSULE.DR PO ×2 (09:45→19:31)
--- NOTE | 2023-08-12 11:04 | HO.PM.IMPN ---
Subjective Subjective Date of Service: 08/12/23 Interval History: complaining of left arm pain, slept well, tolerating diet no other complaints of nausea, no vomiting, is awake alert, no acute overnight issues. Review of Systems All other system reviewed and negative. Physical Exam Vital Signs: Vital Signs: Last Vital Signs Temp 97.1 F 08/12/23 07:19 Pulse 99 08/12/23 07:52 Resp 16 08/12/23 07:52 BP 139/51 L 08/12/23 07:19 Pulse Ox 96 08/12/23 07:19 O2 Del Method Room Air 08/12/23 07:19 O2 Flow Rate 2 08/10/23 11:18 FiO2 95 08/07/23 07:46 BMI result Body Mass Index 18.1 Const: Other: General exam, awake alert this morning talking in full sentences,in no acute distress Neck no JVD Right eye blind Lungs clear to auscultation heart regular rate rhythm, clear S1, S2 GI abdomen soft, bowel sounds audible, nontender neuro awake alert x3, speech clear, face symmetrical, no focal deficits Left for upper extremity swelling above Antecubital fossa ,no redness, few areas of ecchymosis skin neck ecchymosis wounds coccyx, unstageable, left forearm abrasion Objective Data Active Medications Acetaminophen (Acetaminophen 325 Mg Tablet) 650 mg PO Q6H PRN PRN Reason: Pain, Mild (Pain Scale 1-3) Last Admin: 08/11/23 16:49 Dose: 650 mg Documented By: BOBBY Albuterol Sulfate (Albuterol Sulfate (0.083%) 2.5 Mg/3 Ml Vial.Neb) 2.5 mg INHALE Q4H PRN PRN Reason: Shortness Of Breath Or Wheezing Last Admin: 08/10/23 03:27 Dose: 2.5 mg Documented By: THEODORE Albuterol Sulfate (Albuterol Sulfate 90 Mcg 8 Gm Inhaler) 2 puff INHALE Q4H PRN PRN Reason: Shortness Of Breath Or Wheezing Albuterol Sulfate (Albuterol Sulfate (0.083%) 2.5 Mg/3 Ml Vial.Neb) 2.5 mg INHALE ONCE PRN PRN Reason: Shortness of Breath/Wheezing Benzonatate (Benzonatate 100 Mg Capsule) 100 mg PO TID PRN PRN Reason: Cough Ferrous Sulfate (Ferrous Sulfate 324 Mg Tablet.) 324 mg PO BID [facility] Last Admin: 08/12/23 09:44 Dose: 324 mg Documented By: HEMAL Fluticasone Propionate (Fluticasone Propionate 250 Mcg Blst.W.Dev) 1 puff INHALE RBID [facility] Last Admin: 08/12/23 07:53 Dose: 1 puff Documented By: GWEN Melatonin (Melatonin 3 Mg Tablet) 3 mg PO BEDTIME PRN PRN Reason: Insomnia Montelukast Sodium (Montelukast Sodium 10 Mg Tablet) 10 mg PO DAILY [facility] Last Admin: 08/12/23 09:44 Dose: 10 mg Documented By: HEMAL Omeprazole (Omeprazole 20 Mg Capsule.) 20 mg PO BID [facility] Last Admin: 08/12/23 09:45 Dose: 20 mg Documented By: HEMAL Ondansetron HCl (Ondansetron Hcl 4 Mg/2 Ml Vial) 4 mg IVPUSH Q8H PRN PRN Reason: Nausea and Vomiting Last Admin: 08/10/23 03:34 Dose: 4 mg Documented By: CLAUDIA Pramoxine HCl (Pramoxine Hcl 1 % Rectal Foam 15 Gm) 1 appl [place] BID [facility] Last Admin: 08/12/23 09:46 Dose: Not Given Documented By: HEMAL Non-Admin Reason: Patient Refused Sodium Biphosphate/Sodium Phosphate (Sodium Phosphate,Isabela-Dibasic 133 Ml Enema) 133 ml [place] ONCE PRN PRN Reason: Poor Colonoscopy Prep Results Last Admin: 08/06/23 12:59 Dose: 133 ml Documented By: VIVEK Sodium Biphosphate/Sodium Phosphate (Sodium Phosphate,Isabela-Dibasic 133 Ml Enema) 133 ml [place] ONCE PRN PRN Reason: Poor Colonoscopy Prep Results Sodium Chloride (0.9 % Sodium Chloride Flush 3 Ml Syringe) 3 ml IVFLUSH QSHIFT [facility] Last Admin: 08/12/23 09:43 Dose: Not Given Documented By: HEMAL Non-Admin Reason: No Access Tiotropium [place] (Tiotropium [place] 2.5 Mcg Inhaler) 2 puff INHALE DAILY [facility] Last Admin: 08/12/23 07:52 Dose: 2 puff Documented By: HO.RONCARR Vitamin D (Cholecalciferol (Vitamin D3) 25 Mcg Tablet) 25 mcg PO DAILY [facility] Last Admin: 08/12/23 09:44 Dose: 25 mcg Documented By: HEMAL Labs 08/10/23 14:14 08/11/23 07:42 Microbiology Microbiology Results: Microbiology 08/09/23 09:33 Blood Culture - Preliminary Blood - Venous No growth after 48 hours. 08/09/23 06:13 Blood Culture - Preliminary Blood - Venous No growth after 48 hours. Assessment and Plan (1) GI bleed: Status: Acute (2) Anemia: Status: Acute (3) Heme positive stool: Status: Acute Plan 73-year-old woman with a past medical history of COPD, hepatitis C, IV drug use, history of MRSA abscesses, history of osteomyelitis of the humerus, clavicle and scapula with MSSA bacteremia in June of 2023 and was treated with termite control representative Abx at [facility]. She has chronic anemia baseline hematocrit from reviewing record at [facility] is 26 which is essentially unchanged. Pt reportedly had lab work done today and was told by PCP to come to the ED. Blood count here show hemoglobin of 8 and hematocrit 26. No active bleeding overnight Acute toxic metabolic encephalopathy Resolved, was likely due to narcotic medications, patient awake alert at baseline, on narcotic discontinued recommend Tylenol as needed for pain GNR bacteremia ruled out 1/2 bc pos for Porphyromonas asaccharolytica in blood /2, contaminated according to Infectious Disease provider, no repeat workup warranted, antibiotics discontinued LGIB, /Anemia Underwent both upper endoscopy and lower endoscopy by Dr. Martinez EGD showing no esophagitis or barretts. moderate gastric gastric erythema, non bleeding stomach ulcers found Colonoscopy showed dark stools noted in the sigmoid colon, ulcers noted, biopsies taken, likely lower GI bleed from left-sided colitis question ischemic versus inflammatory bowel disease. also likley related to cocaine use as this can cause ischemic colitis . Pathology report from colonic mucosa showed no ischemic changes, findings likely due to infectious colitis, diverticular disease related colitis or inflammatory bowel disease, immunostains for CME and HSV pending continue PPI Repeat hematocrit 27.9 Rectal pain likely due to coccyx ulcer/no hemorrhoids, no diarrhea, continue position change,and foam dressing. Hypomagnesemia repleted Wounds Coccyx wound, unstageable > cleanse with normal saline, apply triad to periwound, lightly pack coccyx with Durafiber Ag cover with sacral foam dressing, daily Right arm AC, abrasion > cleanse with normal saline, apply skin prep to periwound, lightly packed with Durafiber Ag, cover with foam dressing, daily Left forearm> cleanse with normal saline, or cover scabbed area with hydrocolloid dressing, change every 3 days seen by wound nurse> turn and reposition every 2 hours as needed for comfort offload bony prominences, air loss mattress full code DVT prophylaxis with scd boots in light of anemia DISPO patient homeless, PT consult>rec STR patient refused to go to rehab since it is too far.CM arranging for safe disposition. Recommend daily out of bed to chair and ambulation while in-house Quality Stroke Does the patient have a stroke diagnosis?: No VTE Prior VTE?: No VTE Risk Level:: Medical - moderate - high VTE Device Contraindication: N/A - Device Ordered VTE Drug Contraindication: Treatment Not Tolerated
[2023-08-12] MEDS: Acetaminophen 325 MG TABLET 650 MG PO (19:31)
[2023-08-12] MEDS: Melatonin 3 MG TABLET PO (23:46)
[2023-08-13] VITALS (9 sets, daily range): BP systolic 121–154; BP diastolic 51–67; PULSE 82–100; RESP 16–18; TEMP 36.2–38.2; O2SAT 94–99
[2023-08-13] MEDS: Fluticasone Propionate 250 MCG BLST.W.DEV 1 PUFF INHALE ×2 (08:02→19:26)
[2023-08-13] MEDS: Montelukast Sodium 10 MG TABLET PO (08:18)
[2023-08-13] MEDS: Ferrous Sulfate 324 MG TABLET.DR PO ×2 (08:18→20:25)
[2023-08-13] MEDS: Cholecalciferol (Vitamin D3) 25 MCG TABLET PO (08:18)
[2023-08-13] MEDS: Omeprazole 20 MG CAPSULE.DR PO ×2 (08:18→20:25)
--- NOTE | 2023-08-13 11:32 | MHC.CLN ---
F/U PT WITH INCREASED NUTRITION RISK R/T UNSTAGEABLE PRESSURE INJURY TO COCCYX. DIET RX: REGULAR-APPROPRIATE. PT RECEIVING ENSURE CLEAR BID AND MAGIC CUP TID TO INCREASE KCALS AND PROMOTE WOUND HEALING. SUPPLEMENTS PROVIDE 1170 KCALS, 87 G PROTEIN. VARIABLE INTAKE X 3 DAYS, 50-100%. MONITOR PO INTAKE AND SKIN INTEGRITY.
[2023-08-13] MEDS: Acetaminophen 325 MG TABLET 650 MG PO ×2 (13:08→20:24)
--- NOTE | 2023-08-13 13:32 | MHC.CM.PN ---
Addendum entered by Adam Johns 08/13/23 14:02: [facility] IS UNABLE TO DO DAILY WOUND CARE. MESSAGE LEFT FOR WOUND CLINIC/NURSE TO CALL CM BACK TO DISCUSS OPTIONS. Original Note: PT IS REFUSING TO GO TO [facility]. FRIEND/SERVICE OPERATIONS MANAGER ADAM WILL BE BRINGING PT HOME TO CARE FOR HER. CM SPOKE WITH ADAM ([phone]) WITH PT'S PERMISSION. ADAM CONFIRMS THIS PLAN BUT REQUESTS S TRANSPORT HOME FOR PT ON 08/14 SHE NEEDS TO GET HOME SET UP FOR HER. SIMBA CARDENAS MCLAIN ,NAVIGATOR) UPDATED ON CURRENT PLAN AND WILL NOTIFY PT'S HEAT AND FROST INSULATOR TO FOLLOW PT IN THE COMMUNITY. PT WILL GO TO [address] [place] [address]. PT WILL REQUIRE [facility] FOR P.T. AND WOUND OVERSIGHT, PT REQUESTS [facility] SHE STATES SHE HAS HAD THEM IN THE PAST. MADE AWARE OF PLAN. CM WILL CONTINUE TO FOLLOW FOR ANY CHANGE IN DC PLAN/NEEDS.
--- NOTE | 2023-08-13 15:10 | P.PNIM_ITS ---
Subjective Subjective Date of Service: 08/13/23 Interval History: Resting comfortably offers no acute complaints left arm pain has improved sleeping good tolerating diet no nausea no vomiting no acute issues overnight. Review of Systems All other system reviewed and negative. Physical Exam 2 Vital Signs: Vital Signs: Last Vital Signs Temp 97.3 F 08/13/23 14:57 Pulse 97 08/13/23 14:57 Resp 18 08/13/23 14:57 BP 121/56 L 08/13/23 14:57 Pulse Ox 95 08/13/23 14:57 O2 Del Method Room Air 08/13/23 14:57 O2 Flow Rate 2 08/12/23 23:37 FiO2 95 08/07/23 07:46 BMI result Body Mass Index 18.1 Const: Other: General exam, awake alert this morning talking in full sentences,in no acute distress Neck no JVD Right eye blind Lungs clear to auscultation heart regular rate rhythm, clear S1, S2 GI abdomen soft, bowel sounds audible, nontender neuro awake alert x3, speech clear, face symmetrical, no focal deficits Left for upper extremity swelling above Antecubital fossa , improved skin neck ecchymosis wounds coccyx, unstageable, Objective Data Active Medications Acetaminophen (Acetaminophen 325 Mg Tablet) 650 mg PO Q6H PRN PRN Reason: Pain, Mild (Pain Scale 1-3) Last Admin: 08/13/23 13:08 Dose: 650 mg Documented By: ANDERSON Albuterol Sulfate (Albuterol Sulfate (0.083%) 2.5 Mg/3 Ml Vial.Nav) 2.5 mg INHALE Q4H PRN PRN Reason: Shortness Of Breath Or Wheezing Last Admin: 08/10/23 03:27 Dose: 2.5 mg Documented By: THEODORE Albuterol Sulfate (Albuterol Sulfate 90 Mcg 8 Gm Inhaler) 2 puff INHALE Q4H PRN PRN Reason: Shortness Of Breath Or Wheezing Benzonatate (Benzonatate 100 Mg Capsule) 100 mg PO TID PRN PRN Reason: Cough Ferrous Sulfate (Ferrous Sulfate 324 Mg Tablet.) 324 mg PO BID [facility] Last Admin: 08/13/23 08:18 Dose: 324 mg Documented By: ALONDRA Fluticasone Propionate (Fluticasone Propionate 250 Mcg Blst.W.Dev) 1 puff INHALE RBID [facility] Last Admin: 08/13/23 08:02 Dose: 1 puff Documented By: MARCIE Melatonin (Melatonin 3 Mg Tablet) 3 mg PO BEDTIME PRN PRN Reason: Insomnia Last Admin: 08/12/23 23:46 Dose: 3 mg Documented By: MICHELLE Montelukast Sodium (Montelukast Sodium 10 Mg Tablet) 10 mg PO DAILY [facility] Last Admin: 08/13/23 08:18 Dose: 10 mg Documented By: ALONDRA Omeprazole (Omeprazole 20 Mg Capsule.Dr) 20 mg PO BID [facility] Last Admin: 08/13/23 08:18 Dose: 20 mg Documented By: ALONDRA Ondansetron HCl (Ondansetron Hcl 4 Mg/2 Ml Vial) 4 mg IVPUSH Q8H PRN PRN Reason: Nausea and Vomiting Last Admin: 08/10/23 03:34 Dose: 4 mg Documented By: CLAUDIA Pramoxine HCl (Pramoxine Hcl 1 % Rectal Foam 15 Gm) 1 appl [place] BID [facility] Last Admin: 08/13/23 08:18 Dose: Not Given Documented By: ALONDRA Non-Admin Reason: Patient Refused Sodium Biphosphate/Sodium Phosphate (Sodium Phosphate,Tyler-Dibasic 133 Ml Enema) 133 ml SD ONCE PRN PRN Reason: Poor Colonoscopy Prep Results Last Admin: 08/06/23 12:59 Dose: 133 ml Documented By: VIVEK Sodium Biphosphate/Sodium Phosphate (Sodium Phosphate,Tyler-Dibasic 133 Ml Enema) 133 ml SD ONCE PRN PRN Reason: Poor Colonoscopy Prep Results Sodium Chloride (0.9 % Sodium Chloride Flush 3 Ml Syringe) 3 ml IVFLUSH QSHIFT [facility] Last Admin: 08/13/23 08:19 Dose: Not Given Documented By: ALONDRA Non-Admin Reason: No Access Tiotropium [place] (Tiotropium [place] 2.5 Mcg Inhaler) 2 puff INHALE DAILY [facility] Last Admin: 08/13/23 08:03 Dose: 2 puff Documented By: MARCIE Vitamin D (Cholecalciferol (Vitamin D3) 25 Mcg Tablet) 25 mcg PO DAILY [facility] Last Admin: 08/13/23 08:18 Dose: 25 mcg Documented By: ALONDRA Labs 08/10/23 14:14 08/11/23 07:42 Assessment and Plan (1) GI bleed: Status: Acute (2) Anemia: Status: Acute (3) Heme positive stool: Status: Acute Plan 73-year-old woman with a past medical history of COPD, hepatitis C, IV drug use, history of MRSA abscesses, history of osteomyelitis of the humerus, clavicle and scapula with MSSA bacteremia in June of 2023 and was treated with termite exterminator Abx at [facility]. She has chronic anemia baseline hematocrit from reviewing record at [facility] is 26 which is essentially unchanged. Pt reportedly had lab work done today and was told by PCP to come to the ED. Blood count here show hemoglobin of 8 and hematocrit 26. No active bleeding overnight Acute toxic metabolic encephalopathy Resolved, was likely due to narcotic medications, patient awake alert at baseline, narcotics discontinued recommend Tylenol as needed for pain. 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 Martinez EGD showing no esophagitis or barretts. moderate gastric erythema, non bleeding stomach ulcers found Colonoscopy showed dark stools in the sigmoid colon, ulcers noted, biopsies taken, likely lower GI bleed from left-sided colitis question ischemic versus inflammatory bowel disease. Pathology report from colonic mucosa showed no ischemic changes, findings likely due to infectious colitis, diverticular disease related colitis or inflammatory bowel disease, immunostains for CME and HSV pending continue PPI Repeat hematocrit 27.9, no recurrent episode of bleeding Hyperkalemia potassium remains 5.7 will give 1 dose of Lokelma repeat BMP at a.m. Rectal pain likely due to coccyx ulcer/no hemorrhoids, no diarrhea, continue position change,and dc foam dressing. Hypomagnesemia repleted Wounds Coccyx wound, unstageable > cleanse with normal saline, apply triad to periwound, lightly pack coccyx with Durafiber Ag cover with sacral foam dressing, daily Right arm AC, abrasion > cleanse with normal saline, apply skin prep to periwound, lightly packed with Durafiber Ag, cover with foam dressing, daily Left forearm> cleanse with normal saline, or cover scabbed area with hydrocolloid dressing, change every 3 days seen by wound nurse> turn and reposition every 2 hours as needed for comfort offload bony prominences, air loss mattress full code DVT prophylaxis with scd boots in light of anemia DISPO patient homeless, PT consult>rec STR patient refused to go to rehab since it is too far.CM arranging for safe disposition. Patient wishes to be discharged home with [employer] SALES REPRESENTATIVE vocational case manager will arrange for a VNA possible discharge at a.m. patient is awake, alert ,to make the decision. Quality Stroke Does the patient have a stroke diagnosis?: No VTE Prior VTE?: No VTE Risk Level:: Medical - moderate - high VTE Device Contraindication: N/A - Device Ordered VTE Drug Contraindication: Treatment Not Tolerated
--- NOTE | 2023-08-13 16:33 | PC.NURSE ---
Horace not available ,pharmacy notified
[2023-08-13] MEDS: Sodium Zirconium Cyclosilicate 5 GM POWD.PACK PO (17:32)
--- NOTE | 2023-08-13 18:19 | PC.NURSE ---
Patient refuses sequentials stockings,,risks explained,encouraged activity,Dr. Anne notified
[2023-08-13] MEDS: Melatonin 3 MG TABLET PO (20:25)
[2023-08-14] VITALS (12 sets, daily range): BP systolic 106–127; BP diastolic 57–76; PULSE 71–126; RESP 16–18; TEMP 36–39.5; O2SAT 91–99
[2023-08-14] MEDS: Acetaminophen 325 MG TABLET 650 MG PO (04:25)
[2023-08-14] MEDS: Acetaminophen 325 MG TABLET PO (05:04)
--- NOTE | 2023-08-14 05:22 | PC.NURSE ---
Addendum entered by Miya North RN 08/14/23 05:34: PT FEELING SWEATY, BED SHEETS CHANGED, TEMP 100.3 ORALLY AT 0535. ALL TEMPERATURES HAVE BEEN ORALLY THUS FAR. Original Note: PATIENT RESTING QUIETLY IN BED ON FIRST ROUND OF MY SHIFT, AWAKENED, REPOSITIONED, NO STATED PAIN, HOWEVER, FEELING WARM AND THIRSTY. VITALS [id number]/63, 97% ROOM AIR. LUNG SAUCEDO DIM, NO N/V, AND PT WITH NO IV ACCESS WHICH IS NOT NEW. NECK AND CHEST NOTED WITH OLD DEEP BRUISING, FOAM DRESSING AT COCCYX, AND DRESSING RIGHT AC/ARM, AND LEFT FOREARM. AIR LOSS MATTRESS IN USE. COOL CLOTH APPLIED, WATER AND JUICE OFFERED AND ACCEPTED. REPEAT TEMP 100.3, THEN 99.4 ALL ORALLY. PT NAPPED WITH NO S/SX RESP DISTRESS. VITALS AT 0415 [id number] WITH ROOM AIR 94%. NOTED INCONTINENT LARGE STOOL, CARE PROVIDED. 650MG PO TYLENOL GIVEN WITH WATER AND CRANBERRY JUICE. HOSPITALIST ON DUTY ALERTED, LAB WORK, BLOOD CULTURE AND IV APAP ORDERED. DUE TO NO IV ACCESS, ONE TAB OF TYLENOL 325MG ORDERED TO MAKE 975 MG PO DOSE. PATIENTS ONLY STATED DISCOMFORT IS TO BUTTOCKS AND SIDE LYING POSITION WITH ASSIST OF 2. WILL CONTINUE TO MONITOR CLOSELY.
--- NOTE | 2023-08-14 06:23 | PC.NURSE ---
0620, PATIENT CONTINUES TO REST WELL, REPOSITIONED, BATH GIVEN, BED SHEETS CHANGED, PILLOW CASE DAMPENED. AND TEMP LOWERED TO 100.0 ORALLY AT 0600, WILL CONTINUE TO MONITOR. LAB TECHS AT BEDSIDE ATTEMPTING DRAWS PT HARD TO DRAW.
--- NOTE | 2023-08-14 06:38 | PC.NURSE ---
PATIENT ASKING FOR BEDPAN, VITALS 99.5 [id number]%ROOM AIR. MODERATE STOOL PASSED, AWAITING LAB RESULTS. UPDATED
[2023-08-14 06:39] LABS: MANUAL DIFF FLAG NO
[2023-08-14 06:50] LABS: Basophils Absolute Auto 0.1 X10*3/uL (0.0-0.2); Basophils Percent Auto 0.6 % (0-2); Eosinophils Absolute Auto 0.1 X10*3/uL (0.0-0.4); Eosinophils Percent Auto 0.3 % (0-4); Hematocrit 24.3 % (37.0-47.0); Hemoglobin 7.7 g/dl (12.0-16.0); Imm Gran Pct Auto 0.6 % (0.0-0.4); Lymphocytes Absolute Auto 1.2 X10*3/uL (1.2-4.9); Lymphocytes Percent Auto 7.2 % (20-40); Mean Corpuscular HGB Conc 31.7 g/dl (31.0-35.0); Mean Corpuscular Hemoglobin 30.3 pg (27.0-33.0); Mean Corpuscular Volume 95.7 fL (80.0-98.0); Mean Platelet Volume 10.2 fL (9.4-12.3); Monocytes Absolute Auto 0.5 X10*3/uL (0.1-1.2); Monocytes Percent Auto 3.2 % (2-11); Neutrophils Absolute Auto 14.4 x10*3/uL (2.0-8.3); Neutrophils Percent Auto 88.1 % (45-73); Platelet Count 173 X10*3/uL (160-400); Red Blood Count 2.54 X10*6/uL (4.20-5.50); White Blood Count 16.4 X10*3/uL (4.8-10.8)
[2023-08-14 07:01] LABS: Anion Gap 12 (12-20); Blood Urea Nitrogen 17 mg/dL (9-16); Calcium 7.9 mg/dL (8.4-10.2); Carbon Dioxide 22 mmol/L (22-29); Chloride 101 mmol/L (96-108); Creatinine Clr Calc Pharmacy 45.4; Estimated Glomerular Filt Rate > 60; Glucose Random 89 mg/dL (60-115); Potassium 3.5 mmol/L (3.3-5.1); Sodium 131 mmol/L (135-145)
[2023-08-14 07:06] LABS: Alanine Aminotransferase < 5 U/L (0-31); Albumin Level 1.7 g/dL (3.5-5.0); Alkaline Phosphatase 104 U/L (39-117); Anion Gap 14 (12-20); Aspartate Amino Transferase 9 U/L (5-31); Bilirubin Total 0.4 mg/dL (0.0-1.0); Blood Urea Nitrogen 16 mg/dL (9-16); Calcium 8.1 mg/dL (8.4-10.2); Carbon Dioxide 17 mmol/L (22-29); Chloride 103 mmol/L (96-108); Estimated Glomerular Filt Rate > 60; Glucose Random 85 mg/dL (60-115); Potassium 3.7 mmol/L (3.3-5.1); Sodium 130 mmol/L (135-145)
[2023-08-14] MEDS: Montelukast Sodium 10 MG TABLET PO (07:35)
[2023-08-14] MEDS: Cholecalciferol (Vitamin D3) 25 MCG TABLET PO (07:35)
[2023-08-14] MEDS: Omeprazole 20 MG CAPSULE.DR PO (07:35)
[2023-08-14] MEDS: Ferrous Sulfate 324 MG TABLET.DR PO (07:35)
[2023-08-14] MEDS: Fluticasone Propionate 250 MCG BLST.W.DEV 1 PUFF INHALE (07:42)
[2023-08-14 08:56] LABS: Procalcitonin 2.75 ng/mL
[2023-08-14 09:49] LABS: Influenza A PCR NEGATIVE (Negative); Influenza B PCR NEGATIVE (Negative); Resp Syncy Virus RNA Qual PCR NEGATIVE (Negative); SARS COV2 PCR INHOUSE NEGATIVE (Negative)
--- NOTE | 2023-08-14 10:54 | PC.NURSE ---
Pt refusing an IV for antibiotics. Refused lab work. She is signing out AMA. Dr. Jeffries had discussion regarding risk of leaving after having fever of 103 over night. She is A&O and states understanding of risks.
--- NOTE | 2023-08-14 14:09 | PC.NURSE ---
Pt leave AMA, she will be picked up by ambulance transpor around 4pm. Spoke with her BLOCK HANDLER who is now aware that pt is refusing treatment.
--- NOTE | 2023-08-14 15:08 | MHC.CM.PN ---
Patient is leaving AMA today. Her COMPUTER SECURITY SPECIALIST has been informed that the patient is refusing IV access insertion and dressing changes. The COMPUTER SECURITY SPECIALIST Laura has also been informed that a VNA is not in place for home care. Laura stated that she had been taking care of the patient including wound care prior to hospital admission. She stated that she is willing to care for the patient in her home. She will receive the patient at her home (not the patients home) from [facility]. [facility] has been notified that the patient left AMA. [facility] wound clinic was called. A follow up VM was left to notify that the patient is leaving AMA via [facility] 4pm vegetable picker..
--- NOTE | 2023-08-14 15:51 | PM.DS ---
DS: Providers Provider Date of Service: 08/14/23 Date of admission: 08/05/23 14:34 Primary care physician: Karla Ceballos MD Consults: 08/03/23 22:59 Consult to Gastroenterology Routine Consulting Provider: Maria A Martinez Reason for consultation: anemia, gib Has provider been notified: No 08/07/23 08:39 Consult to Wound Care Routine Reason for consultation: wound on coccyx, bilateral arm scaring/sores Has provider been notified: No 08/08/23 08:00 Consult to Infectious Diseases Routine Consulting Provider: [facility] Infectious Disease Reason for consultation: GNR bacteremia DS: Diagnosis Discharge Diagnosis (1) GI bleed: Status: Acute (2) Anemia: Status: Acute (3) Heme positive stool: Status: Acute DS: Summary Hospital Course Hospital Course: [facility]: Elli is a 73-year-old woman with a past medical history of COPD, hepatitis C, IV drug use, history of?MRSA abscesses,?history of c dif, history E. coli colitis, osteomyelitis of the humerus, clavicle, and scapula with MSSA bacteremia in [facility] of 2022 and was treated with snf Abx?at [facility]. She has chronic anemia; baseline hematocrit?from reviewing records at [facility] is 26, which is essentially unchanged. Pt?reportedly had lab work done today and was told by PCP to come to the ED. Her blood count here shows hemoglobin of 8 and hematocrit of 26. She was prescribed eliquis 2.5 bid by her PCP today but states that she has not yet taken it, the indication is not clear She was admitted to the hospitalist service. 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 Underwent both upper endoscopy and lower endoscopy by Dr. Martinez from GI. EGD 08/06/23 showed no esophagitis or Faulkner's; moderate gastric erythema and non -bleeding stomach ulcers were found. Colonoscopy 08/06/23 showed dark stools in the sigmoid colon with ulcers; biopsies were taken and ultimately the bleeding was attributed to infectious colitis seen on pathology; immunostains for CME and HSV were negative. H+H remained stable after 2 units of pRBCs were transfused. Rectal pain - Likely due to coccyx ulcer; no hemorrhoids, no diarrhea, continue position change,and dc foam dressing. Hyperkalemia - Mild, resolved after 1 dose Lokelma Hypomagnesemia - Repleted. Wounds - Wound Care consulted. Recommendations: Coccyx wound, unstageable > cleanse with normal saline, apply triad to periwound, lightly pack coccyx with Durafiber Ag cover with sacral foam dressing, daily Right arm AC, abrasion > cleanse with normal saline, apply skin prep to periwound, lightly packed with Durafiber Ag, cover with foam dressing, daily Left forearm> cleanse with normal saline, or cover scabbed area with hydrocolloid dressing, change every 3 days In addition, frequent turning/repositioning every 2 hours to offload bony prominences along with air loss mattress. Fever Disposition - The patient is homeless. PT was consulted and STR was highly recommended but the patient repeatedly refused. The backup plan was for the patient to go home with her [employer]ACH[employer] with [facility] services. When I came on service on 08/14/23, however, the patient had developed a high fever to 103.1 at 04:00. Workup showed elevated procalcitonin; CXR negative; RSV/flu/Covid-19 negative. Urine and blood drawn and pending. Unclear what the source of infection could be. The patient insisted on signing out of the hospital AGAINST MEDICAL ADVICE despite extensive counseling on the risks of incompletely treated or worked up suspected infection. She refused to change her mind and was fully competent to make her medical decisions. She was sent to her [employer]'s home per her wishes. She was strongly urged to return to the hospital as soon as possible. Time Attestation Discharge coordination time: Greater than 30 minutes Quality: Safe Use of Opioids Does Pt have an Active Cancer Diagnosis on the Problem List?: No Quality: Stroke Does the patient have a stroke diagnosis?: No Physical Exam Vital Signs: Vital Signs: Last Vital Signs Temp 97.7 F 08/14/23 15:11 Pulse 71 08/14/23 15:11 Resp 18 08/14/23 15:11 BP 123/68 08/14/23 15:11 Pulse Ox 96 08/14/23 15:11 O2 Del Method Room Air 08/14/23 15:11 O2 Flow Rate 2 08/12/23 23:37 FiO2 95 08/07/23 07:46 BMI result Body Mass Index 18.1 DS: Data Data Completed and Pending Completed studies during hospitalization [Text1]: Pending at discharge 08/05/23 12:43 Surgical [PTH] Routine 08/06/23 15:02 Surgical [PTH] Routine Labs on day of discharge: Laboratory Results - last 24 hr 08/14/23 08/14/23 08/14/23 06:26 06:26 06:26 WBC 16.4 H RBC 2.54 L Hgb 7.7 L Hct 24.3 L MCV 95.7 MCH 30.3 MCHC 31.7 RDW 17.0 H Plt Count 173 D MPV 10.2 Immature Gran % (Auto) 0.6 H Neut % (Auto) 88.1 H Lymph % (Auto) 7.2 L [place] % (Auto) 3.2 Eos % (Auto) 0.3 Baso % (Auto) 0.6 Lymph # (Auto) 1.2 [place] # (Auto) 0.5 Eos # (Auto) 0.1 Baso # (Auto) 0.1 Abs Immat Gran (auto) 0.10 H Absolute Neuts (auto) 14.4 H Absolute Nucleated RBC 0.000 Nucleated RBC % (auto) 0.0 Sodium 131 L 130 L Potassium 3.5 D 3.7 Chloride 101 Carbon Dioxide Anion Gap BUN Creatinine Estim Creat Clear Calc Estimated GFR Random Glucose Calcium Total Bilirubin AST ALT Alkaline Phosphatase C-Reactive Protein Total Protein Albumin Procalcitonin Influenza Type A (PCR) Influenza Type B (PCR) RSV RNA Qual (PCR) SARS-CoV-2 RNA (RT-PCR) 08/14/23 08/14/23 08/14/23 06:26 06:26 06:26 WBC RBC Hgb Hct MCV MCH MCHC RDW Plt Count MPV Immature Gran % (Auto) Neut % (Auto) Lymph % (Auto) [place] % (Auto) Eos % (Auto) Baso % (Auto) Lymph # (Auto) [place] # (Auto) Eos # (Auto) Baso # (Auto) Abs Immat Gran (auto) Absolute Neuts (auto) Absolute Nucleated RBC Nucleated RBC % (auto) Sodium Potassium Chloride 103 Carbon Dioxide 22 17 L Anion Gap 12 14 BUN 17 H Creatinine Estim Creat Clear Calc Estimated GFR Random Glucose Calcium Total Bilirubin AST ALT Alkaline Phosphatase C-Reactive Protein Total Protein Albumin Procalcitonin Influenza Type A (PCR) Influenza Type B (PCR) RSV RNA Qual (PCR) SARS-CoV-2 RNA (RT-PCR) 08/14/23 08/14/23 08/14/23 06:26 06:26 06:26 WBC RBC Hgb Hct MCV MCH MCHC RDW Plt Count MPV Immature Gran % (Auto) Neut % (Auto) Lymph % (Auto) [place] % (Auto) Eos % (Auto) Baso % (Auto) Lymph # (Auto) [place] # (Auto) Eos # (Auto) Baso # (Auto) Abs Immat Gran (auto) Absolute Neuts (auto) Absolute Nucleated RBC Nucleated RBC % (auto) Sodium Potassium Chloride Carbon Dioxide Anion Gap BUN 16 Creatinine 0.83 0.82 Estim Creat Clear Calc 45.4 46.0 Estimated GFR > 60 Random Glucose Calcium Total Bilirubin AST ALT Alkaline Phosphatase C-Reactive Protein Total Protein Albumin Procalcitonin Influenza Type A (PCR) Influenza Type B (PCR) RSV RNA Qual (PCR) SARS-CoV-2 RNA (RT-PCR) 08/14/23 08/14/23 08/14/23 06:26 06:26 06:26 WBC RBC Hgb Hct MCV MCH MCHC RDW Plt Count MPV Immature Gran % (Auto) Neut % (Auto) Lymph % (Auto) [place] % (Auto) Eos % (Auto) Baso % (Auto) Lymph # (Auto) [place] # (Auto) Eos # (Auto) Baso # (Auto) Abs Immat Gran (auto) Absolute Neuts (auto) Absolute Nucleated RBC Nucleated RBC % (auto) Sodium Potassium Chloride Carbon Dioxide Anion Gap BUN Creatinine Estim Creat Clear Calc Estimated GFR > 60 Random Glucose 89 85 Calcium 7.9 L 8.1 L Total Bilirubin 0.4 AST 9 ALT < 5 Alkaline Phosphatase 104 C-Reactive Protein 18.40 H Total Protein 6.0 L Albumin 1.7 L Procalcitonin 2.75 Influenza Type A (PCR) Influenza Type B (PCR) RSV RNA Qual (PCR) SARS-CoV-2 RNA (RT-PCR) 08/14/23 09:02 WBC RBC Hgb Hct MCV MCH MCHC RDW Plt Count MPV Immature Gran % (Auto) Neut % (Auto) Lymph % (Auto) [place] % (Auto) Eos % (Auto) Baso % (Auto) Lymph # (Auto) [place] # (Auto) Eos # (Auto) Baso # (Auto) Abs Immat Gran (auto) Absolute Neuts (auto) Absolute Nucleated RBC Nucleated RBC % (auto) Sodium Potassium Chloride Carbon Dioxide Anion Gap BUN Creatinine Estim Creat Clear Calc Estimated GFR Random Glucose Calcium Total Bilirubin AST ALT Alkaline Phosphatase C-Reactive Protein Total Protein Albumin Procalcitonin Influenza Type A (PCR) NEGATIVE Influenza Type B (PCR) NEGATIVE RSV RNA Qual (PCR) NEGATIVE SARS-CoV-2 RNA (RT-PCR) NEGATIVE Discharge Plan Discharge Patient Disposition: Left Against Medical Advice Discharge Diagnosis: Fever, likely infection of unknown source Acute toxic metabolic encephalopathy Lower GI bleed/colitis due to colitis Chronic wounds LEFT HOSPITAL AGAINST MEDICAL ADVICE Referrals: Karla Ceballos MD [Primary Care Provider] - 1 Week Discharge Medications: Continued albuterol sulfate 2.5 mg /3 mL (0.083 %) solution for nebulization 2.5 mg inhalation Q4H PRN (Reason: Shortness Of Breath Or Wheezing) clonazepam 1 mg tablet 1 mg PO BEDTIME PRN (Reason: Anxiety) omeprazole 20 mg capsule,delayed release(DR/EC) 20 mg PO BID montelukast 10 mg tablet 10 mg PO DAILY fluticasone propionate [Flovent HFA] 220 mcg/actuation HFA aerosol inhaler 1 puff inhalation BID albuterol sulfate 90 mcg/actuation HFA aerosol inhaler 2 puff INHALATION Q4-6H PRN (Reason: Shortness Of Breath Or Wheezing) ferrous sulfate 325 mg (65 mg iron) tablet,delayed release (DR/EC) 325 mg PO BID tiotropium bromide [Spiriva with HandiHaler] 18 mcg capsule, w/inhalation device 1 cap inhalation DAILY cholecalciferol (vitamin D3) 25 mcg (1,000 unit) Tablet 25 mcg PO DAILY Discontinued ibuprofen 600 mg tablet 600 mg PO TID PRN (Reason: pain) Eliquis 2.5 mg tablet 2.5 mg PO BID No Action zolpidem 5 mg tablet 5 mg PO BEDTIME PRN (Reason: Insomnia) Discharge Orders: Discharge Order (Routine); Ordered 08/14/23 Ordered By: Jaehyun Nesha Diet: Advance to usual diet Care Plan Goals: Cure of infections Health Concerns: Fever, likely infection of unknown source Acute toxic metabolic encephalopathy Lower GI bleed/colitis due to colitis Chronic wounds Left hospital AGAINST MEDICAL ADVICE Plan of Treatment: Return to hospital as soon as possible Wounds Coccyx wound, unstageable > cleanse with normal saline, apply triad to periwound, lightly pack coccyx with Durafiber Ag cover with sacral foam dressing, daily Right arm AC, abrasion > cleanse with normal saline, apply skin prep to periwound, lightly packed with Durafiber Ag, cover with foam dressing, daily Left forearm> cleanse with normal saline, or cover scabbed area with hydrocolloid dressing, change every 3 days seen by wound nurse> turn and reposition every 2 hours as needed for comfort offload bony prominences, air loss mattress Assessment: See Discharge Summary.
--- NOTE | 2023-08-15 07:43 | PM.EVENT ---
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 I called the pt at her listed number 2x but there was no answer, and the voice mailbox is not set up. She had signed out AMA yesterday despite me warning her of the risks of undiagnosed/untreated infection. I called the pt's friend/HEALTH SERVICES MANAGER Laura at the listed number 2x but there was no answer, and the voice mailbox is not set up. I called the pt's secondary contact Aimee Diana at the listed number and she answered. She will bring the pt into the hospital. Time Spent With Patient Time: Total time managing care of this patient today ____ minutes.
== END 2023-08-14 16:53 | disposition left against medical advice (07) | DRG 377 ==
LOC: HO.ED 20:59 → HO.EDOVER 23:10 → HO.IMC 23:55 → HO.S3 08-11 18:59
PROVIDERS: Hospitalist; Internal Medicine Gastroenterology; Nurse Practitioner Acute Care; Student in an Organized Health Care Education/Training Program; Admitting Provider Internal Medicine; Emergency Provider Emergency Medicine; PCP Pediatrics; Visit Provider Family Medicine
PROC: 0DJ08ZZ Inspection of Upper Intestinal Tract, Via Natural or Artificial Opening Endoscopic (ICD-10-PCS; CPT 43235; principal; 2023-08-05 12:00)
PROC: 0DJD8ZZ Inspection of Lower Intestinal Tract, Via Natural or Artificial Opening Endoscopic (ICD-10-PCS; CPT 45378; principal; 2023-08-06 14:40)
DX: K57.31 Diverticulosis of large intestine without perforation or abscess with bleeding (principal); G92.8 Other toxic encephalopathy; D62 Acute posthemorrhagic anemia; K51.511 Left sided colitis with rectal bleeding; Z59.02 Unsheltered homelessness; H54.8 Legal blindness, as defined in USA; Z86.718 Personal history of other venous thrombosis and embolism; E83.42 Hypomagnesemia; T40.605A Adverse effect of unspecified narcotics, initial encounter; E87.5 Hyperkalemia; L89.150 Pressure ulcer of sacral region, unstageable; K25.4 Chronic or unspecified gastric ulcer with hemorrhage; Z20.822 Contact with and (suspected) exposure to COVID-19; Z79.51 Long term (current) use of inhaled steroids; Z79.899 Other long term (current) drug therapy
CPT/HCPCS: 0241U; 36415; 71045; 80048; 80053; 80076; 80307; 81001; 82272; 82803; 82947; 83605; 83735; 83880; 84145; 84484; 85014; 85018; 85025; 85027; 85610; 85730; 86140; 86850; 86900; 86901; 86923; 87040; 87076; 87077; 87086; 87147; 87185; 87186; 87205; 87635; 88305; 88341; 88342; 93005; 94640; 97110; 97116; 97161; 99285; J1940; J2270; J2405; J2930; J3475; P9016

== ENCOUNTER → 2023-08-03 22:59 | Outpatient (BNV) | payer OTHER, MEDICAID, SELFPAY | PROVIDERS: Admitting Provider Internal Medicine; Emergency Provider Emergency Medicine; PCP Pediatrics; Visit Provider Hospitalist | DX: J18.9 Pneumonia, unspecified organism (principal); D64.9 Anemia, unspecified | CPT/HCPCS: 99222; 99232; 99233; 99239; 99499 ==

== ENCOUNTER → 2023-08-05 14:34 | Outpatient (BNV) | payer OTHER, MEDICAID, SELFPAY | PROVIDERS: Admitting Provider Internal Medicine; Emergency Provider Emergency Medicine; PCP Pediatrics; Visit Provider Internal Medicine Gastroenterology | DX: K51.50 Left sided colitis without complications (principal); K57.30 Diverticulosis of large intestine without perforation or abscess without bleeding | CPT/HCPCS: 45331; 99233 ==

== ENCOUNTER → 2023-08-05 14:34 | Outpatient (BNV) | payer OTHER, SELFPAY | PROVIDERS: Admitting Provider Internal Medicine; Emergency Provider Emergency Medicine; PCP Pediatrics; Visit Provider Internal Medicine | DX: R19.5 Other fecal abnormalities (principal); R78.81 Bacteremia | CPT/HCPCS: 99222 ==

== ENCOUNTER 2023-08-15 18:58 | Inpatient (IN) | payer OTHER, SELFPAY ==
--- NOTE | 2023-08-15 | ECG_ITS ---
Test Reason : CHEST PAIN Blood Pressure : / mmHG Vent. Rate : 132 BPM Atrial Rate : 132 BPM P-R Int : 064 ms QRS Dur : 064 ms QT Int : 390 ms P-R-T Axes : 079 068 031 degrees QTc Int : 577 ms Poor data quality Sinus tachycardia with short MT with Premature atrial complexes ST & T wave abnormality, consider inferior ischemia ST & T wave abnormality, consider anterolateral ischemia Abnormal ECG When compared with ECG of 03-AUG-2023 17:25, Premature atrial complexes are now Present Referred By: Arvin Hernández Electronically Signed By:MT LAGUNAS MD
--- NOTE | ~2023-08-15 | CT_ITS ---
EXAMINATION: CT CERVICAL SPINE WITH CONTRAST CLINICAL INFORMATION: Neck pain. COMPARISON: CT cervical spine July 10, 2023 TECHNIQUE: Axial images obtained through cervical spine. Coronal and sagittal reformatted images are at CT scanner This CT examination was performed using dose optimization techniques as appropriate, variously including the following: *Automated exposure control *Adjustment of mA and/or kV according to patient size (this includes techniques or standardized protocols for targeted exams where dose is matched to indication/reason for exam; i.e. extremities or head) *Use of iterative reconstruction technique DLP: 391 mGy-cm FINDINGS: No acute abnormality. No fracture or subluxation. No prevertebral soft tissue swelling. Multilevel degenerative spondylosis. Disc height narrowing, endplate spurring and facet joint arthrosis. Near-complete opacification of the left sphenoid sinus. Aerosolized mucous in small volume of fluid in the dependent right sphenoid sinus. Mastoid air cells and middle ear cavities are normally aerated. Disc levels: C1-C2: Moderate volume of partially calcified pannus no record dental region. Degenerative cystic changes at the tip of the dens with narrowing of the C1-C2 articulation. C2-C3: Cervical disc height normal. Facet joints are normal. No central canal stenosis. Neural foramina open. C3-C4: Mild cervical disc height narrowing. Calcification of the annulus fibrosis. Mild circumferential bulging the annulus. No central disc protrusion. No central canal stenosis. Mild facet joint arthrosis. Neural foramina open. C4-C5: Marked cervical disc height narrowing and vertebral endplate spurring. No focal disc extrusion. No central canal stenosis. Marked facet joint arthrosis greater on the right than the left. Mild narrowing of the right neural foramina. Left neural foramina remains open. C5-C6: Mild cervical disc height narrowing. Vertebral endplate spurs. Mild circumferential bulge of the annular fibers. No focal disc protrusion. No central canal stenosis. Mild facet joint arthrosis. Neural foramina open. C6-C7: Mild cervical disc height narrowing. Vertebral endplate spurs. Circumferential bulge of the annular fibers without focal disc protrusion. No central canal stenosis. Mild facet joint arthrosis, left greater than right. Neural foramina are open. C7-T1: Cervical disc height narrowing and vertebral endplate spur. No focal disc protrusion. No central canal stenosis. Mild narrowing of neural foramina bilaterally. CT/CT cervical spine w IV con IMPRESSION: 1. No acute abnormality. 2. Degenerative spondylosis of cervical spine. Fleischner guidelines were followed.
--- NOTE | ~2023-08-15 | IR_ITS ---
CLINICAL HISTORY: Poor IV access PROCEDURES: 1. Real-time ultrasound-guided access into the right internal jugular vein after documentation of selected vessel patency, and permanent imaging storing in the patient record. 2. Placement of a 7 fr 16 cm triple lumen catheter Clinician: Eduardo Fox PA-C MEDICATIONS: -Lidocaine 1% 10 mL SQ. -Antibiotics: None -For additional details, please see nursing flowsheet. COMPLICATIONS: None. ESTIMATED BLOOD LOSS: <5 ml SPECIMENS: None FLUOROSCOPY TIME: 0.5 min PROCEDURE NOTE: The procedure, risks, benefits, and alternatives were carefully explained to patient, and written informed consent was obtained. The patient was placed supine on the fluoroscopy table. A timeout was performed. The right neck was prepped and draped in usual sterile fashion. Local anesthesia was administered to the access site with lidocaine. Under ultrasound guidance, the right internal jugular vein was accessed with a 5 Fr micropuncture set. A 0.035 in wire was advanced into the IVC. The tract was then dilated to 7 [place]. Over the wire, a 7 [place] 16 cm triple-lumen catheter was advanced. The wire was then removed. The catheter was tested, flushed, and sutured to the skin with its tip at the cavoatrial junction. A permanent fluoroscopic image of the chest was saved to PACS. The patient was stable after the procedure and was transferred back to the medical floor. FINDINGS: 1. Patent right internal jugular vein. 2. Placement of a 7 [place] 16 cm triple lumen catheter 3. Catheter flushes and aspirates very well with a 10 mL syringe. No pneumothorax. IR/IR cvc insert non tunnel IMPRESSION: Placement of a triple-lumen catheter in the right internal jugular vein. PLAN: -The catheter may be used immediately. This procedure was performed by Eduardo Fox PA-C, and directly supervised by Dr. Zimmer.
--- NOTE | ~2023-08-15 | IR_ITS ---
CLINICAL HISTORY: IV antibiotics. Persistent bacteremia PROCEDURES: 1. Real-time ultrasound-guided access into the left brachial vein after documentation of selected vessel patency, and permanent imaging storing in the patient record. 2. Placement of a 5 fr 38 cm, dual lumen power PICC CLINICIANS: Eduardo Fox PA-C MEDICATIONS: -Lidocaine 1% 10 mL SQ. -Antibiotics: None. Complications: None. Estimated blood loss: <5 ml Specimens: None. Contrast: None. Fluoroscopy time: 0.4 min Procedure note: The procedure, risks, benefits, and alternatives were carefully explained to the patient and written informed consent was obtained. The patient was placed supine on the fluoroscopy table. A timeout was performed. The left arm was prepped and draped in usual sterile fashion. Using ultrasound and fluoroscopic guidance, venous access was achieved into the brachial vein with a micropuncture set. A peel-away sheath was advanced over the wire. The 0.018 inch wire was advanced into the right atrium. A 5 fr, 38 cm, dual lumen power PICC was advanced over the wire, with its tip in the the cavoatrial junction. The wire was removed. The catheter was tested and secured with a StatLock dressing. A permanent ultrasound image and chest fluoroscopic image was saved to PACS. The patient was stable after the procedure and was transferred to the floor. FINDINGS: 1. Patent left brachial vein 2. Placement of a 5 fr 38 cm, dual lumen power PICC IR/IR cvc insert peripheral IMPRESSION: Placement of a 5 fr 38 cm, dual lumen power PICC PLAN: -The catheter may be used immediately. This procedure was performed by Eduardo Fox PA-C, and directly supervised by Dr. Harris
--- NOTE | ~2023-08-15 | XR_ITS ---
EXAMINATION: XR CHEST CLINICAL INFORMATION: Hypoxia COMPARISON: 08/20/2023 TECHNIQUE: Hypoxia view of the chest was obtained. FINDINGS: Right IJ central line tip lies in the region of the distal SVC. Lung volumes are symmetric. There is an increased region of opacity in the mid right lung compared to prior. No evidence of pneumothorax, significant pleural effusion, or overt pulmonary edema. The cardiomediastinal contour is unremarkable. No acute osseous findings are seen. XR/XR chest 1V IMPRESSION: Increased region of opacity in the mid right lung compared to prior, suspicious for worsening consolidation/pneumonia in the proper clinical setting. Underlying mass is considered less likely, as this is a new finding compared to 08/14/2023
--- NOTE | ~2023-08-15 | XR_ITS ---
EXAMINATION: XR scapula LT, XR humerus LT CLINICAL INFORMATION: Reason for Exam pain + bacteremia COMPARISON: None. TECHNIQUE: Two views of the left humerus and 2 views of the left scapula FINDINGS: No acute fracture or dislocation. Moderate degenerative changes in the shoulder with loss of acromioclavicular joint space and some mineralization in the acromioclavicular joint which may reflect sequela chondrocalcinosis. No cortical erosion, focal osteopenia or periosteal reaction to favor osteomyelitis however MRI would be more sensitive for evaluation. No soft tissue abnormality. XR/XR scapula LT IMPRESSION: 1. No acute osseous abnormality. 2. Moderate degenerative changes in the shoulder.
--- NOTE | ~2023-08-15 | IR_ITS ---
CLINICAL HISTORY: Poor IV access PROCEDURES: 1. Real-time ultrasound-guided access into the right internal jugular vein after documentation of selected vessel patency, and permanent imaging storing in the patient record. 2. Placement of a 7 fr 16 cm triple lumen catheter Clinician: Eduardo Fox PA-C MEDICATIONS: -Lidocaine 1% 10 mL SQ. -Antibiotics: None -For additional details, please see nursing flowsheet. COMPLICATIONS: None. ESTIMATED BLOOD LOSS: <5 ml SPECIMENS: None FLUOROSCOPY TIME: 0.5 min PROCEDURE NOTE: The procedure, risks, benefits, and alternatives were carefully explained to patient, and written informed consent was obtained. The patient was placed supine on the fluoroscopy table. A timeout was performed. The right neck was prepped and draped in usual sterile fashion. Local anesthesia was administered to the access site with lidocaine. Under ultrasound guidance, the right internal jugular vein was accessed with a 5 Fr micropuncture set. A 0.035 in wire was advanced into the IVC. The tract was then dilated to 7 [place]. Over the wire, a 7 [place] 16 cm triple-lumen catheter was advanced. The wire was then removed. The catheter was tested, flushed, and sutured to the skin with its tip at the cavoatrial junction. A permanent fluoroscopic image of the chest was saved to PACS. The patient was stable after the procedure and was transferred back to the medical floor. FINDINGS: 1. Patent right internal jugular vein. 2. Placement of a 7 [place] 16 cm triple lumen catheter 3. Catheter flushes and aspirates very well with a 10 mL syringe. No pneumothorax. IR/IR us guide venous access IMPRESSION: Placement of a triple-lumen catheter in the right internal jugular vein. PLAN: -The catheter may be used immediately. This procedure was performed by dEuardo Fox PA-C, and directly supervised by Dr. Zimmer.
--- NOTE | ~2023-08-15 | XR_ITS ---
EXAMINATION: XR CHEST CLINICAL INFORMATION: Right rib pain in patient COMPARISON: Chest radiograph 08/14/2023, 08/03/2023, 07/27/2023 TECHNIQUE: 3 views of the chest FINDINGS: Evaluation of the cardiomediastinal silhouette and lungs limited due to patient rotation. There is no gross pneumothorax. There is a new right perihilar opacity concerning for atelectasis and/or pneumonia. No gross pleural effusion. Evaluation on the lateral views is limited due to portable technique and patient positioning. XR/XR chest 2V IMPRESSION: New right perihilar opacity concerning for atelectasis and/or pneumonia. Results provided as requested by provider at time exam was presented for interpretation on 08/21/2023 at 8:27 AM.
--- NOTE | ~2023-08-15 | NM_ITS ---
EXAMINATION: TC-99M CERETEC WHITE BLOOD CELL STUDY CLINICAL INFORMATION: Bacteremia-MRSA, unknown source. COMPARISON: CT of the thoracic spine done on 08/19/2023 and chest radiograph done on 08/20/2023. TECHNIQUE: Multiple gamma scintillation camera images of the whole body were performed 1.5 hours following the intravenous administration of 15 millicuries technetium 99m Ceretec labeled autologous white cells. Additional images of the chest and abdomen were obtained to demonstrate physiological white blood cell tagging. FINDINGS: Physiologic radiotracer uptake is identified throughout the whole body. No evidence of any focal abnormal radiotracer activity to identify the source of infection is visualized. Alternative imaging modality including F-[address] study may be considered for further clarification. NM/NM white blood scan IMPRESSION: No scintigraphic evidence of source of infection is identified. F-18 FDG PET/CT study (consider most sensitive modality in this clinical scenario) may be considered for further clarification.
--- NOTE | ~2023-08-15 | XR_ITS ---
EXAMINATION: XR CHEST CLINICAL INFORMATION: Cough, follow-up pneumonia. COMPARISON: Chest x-ray 08/31/2023. TECHNIQUE: Frontal view of the chest was obtained. FINDINGS: The lungs are hypoexpanded with dense linear opacity in the right midlung likely combination of infiltrate/atelectasis. There is slightly more prominent than the last exam 08/31/2023. There is a new left PICC line with its tip in the mid SVC. Heart size and pulmonary vascularity is normal. No gross bony abnormality seen. XR/XR chest 1V IMPRESSION: 1. New left PICC line with its tip in the mid SVC. 2. Right midlung infiltrate/atelectasis slightly more prominent than 08/31/2023
--- NOTE | ~2023-08-15 | XR_ITS ---
EXAMINATION: XR SCAPULA, RIGHT CLINICAL INFORMATION: Reason for Exam pain + bacteremia COMPARISON: Chest radiograph 08/14/2023 TECHNIQUE: Two views of the scapula FINDINGS: Similar chronic deformity of the right distal clavicle may be chronic postsurgical or posttraumatic. There is apparent osteolysis and fragmentation of the acromion which may be posttraumatic and/or infectious in etiology and consider correlation with MR. Overlying soft tissue swelling. Loss of subacromial joint space is seen in the setting of rotator cuff pathology. XR/XR scapula RT IMPRESSION: * There is apparent osteolysis and fragmentation of the acromion which may be posttraumatic and/or infectious in etiology with overlying soft tissue swelling and recommend correlation with MRI as osteomyelitis cannot be excluded. * Similar chronic deformity of the right distal clavicle may be chronic postsurgical or posttraumatic.
--- NOTE | ~2023-08-15 | US_ITS ---
EXAMINATION: US VENOUS ULTRASOUND WITH DOPPLER LOWER EXTREMITY, BILATERAL CLINICAL INFORMATION: Edema. COMPARISON: No recent priors are available for comparison. TECHNIQUE: Ultrasound of the deep veins is performed from the hip to the calf with compression sonography and color and pulse Doppler assessment. Spectral analysis with color-flow imaging is performed. FINDINGS: Quite extensive occlusive and nearly occlusive bilateral lower extremity deep venous thrombosis extending from the common femoral veins to the calf veins with the caveat that the right profunda femoral vein and bilateral peroneal veins were not well visualized. No Hernandez's cyst. US/US venous duplex LE BI IMPRESSION: Quite extensive occlusive and nearly occlusive bilateral lower extremity deep venous thrombosis extending from the common femoral veins to the calf veins as above. This critical result was discussed with Doris MANCIA at 08/17/2023 7:30 PM and it was ascertained that the content and urgency of the report was understood at the time of direct communication.
--- NOTE | ~2023-08-15 | CT_ITS ---
EXAMINATION: CT LUMBAR SPINE CLINICAL INFORMATION: Back pain. MRSA bacteremia. COMPARISON: Lumbar spine x-ray July 2023 TECHNIQUE: Axial images through the lumbar spine following 85 mL Omnipaque 350 IV contrast. Sagittal and coronal reconstructions on the technologist workstation were performed. This CT examination was performed using dose optimization techniques as appropriate, variously including the following: *Automated exposure control *Adjustment of mA and/or kV according to patient size (this includes techniques or standardized protocols for targeted exams where dose is matched to indication/reason for exam; i.e. extremities or head) *Use of iterative reconstruction technique DLP: 451 mGy-cm FINDINGS: There is curvature of the lower lumbar spine to the left. Bone alignment is otherwise normal. There is multilevel degenerative spondylosis and degenerative disc disease. No compression fracture. There is slight endplate irregularity at L2-L3 and L3-L4 however this probably related to discogenic sclerosis. No definite evidence of osteomyelitis/discitis. At T12-L1 there is mild disc bulge. No disc herniation. At L1-L2 There is right lateral disc bulge. No disc herniation. Bilateral facet arthritis At L2-L3 there is bilateral disc bulge. There is right paracentral focal disc protrusion or small herniation. There is moderate secondary spinal stenosis due to short pedicles, disc and facet arthritis. At L3-L4 there is disc bulge. There is no disc herniation. There is severe secondary spinal stenosis disc, short pedicles and facet arthritis At L4-L5 there is diffuse disc bulge. No disc herniation. There is severe secondary spinal stenosis due to disc bulge, short pedicles and facet arthritis At L5-S1 there is broad-based diffuse disc bulge. No disc herniation. There is bilateral facet arthritis. Paraspinal soft tissues are normal. CT/CT lumbar spine w IV con IMPRESSION: No fracture. No definite evidence of osteomyelitis or discitis. Endplate irregularity at L2-L3 and L3-L4 probably representing discogenic sclerosis. Multilevel degenerative disc disease and spinal stenosis greatest at L3-L4 and L4-L5. Small right paracentral disc protrusion or herniation at L2-L3.
--- NOTE | ~2023-08-15 | CT_ITS ---
EXAMINATION: CT THORACIC SPINE WITHOUT CONTRAST CLINICAL INFORMATION: Mid back pain. Abscess. COMPARISON: Chest radiograph from 08/14/2023. TECHNIQUE: Multidetector helical imaging of the thoracic spine was obtained without intravenous contrast. 70 mL of Omnipaque 350 intravenous contrast was administered 90 minutes prior to imaging and had essentially washout completely prior to imaging. Multiple axial reformats and coronal/sagittal reconstructions were created the technologist workstation for review. This CT examination was performed using dose optimization techniques as appropriate, variously including the following: *Automated exposure control. *Adjustment of mA and/or kV according to patient size (this includes techniques or standardized protocols for targeted exams where dose is matched to indication/reason for exam; i.e. extremities or head). *Use of iterative reconstruction technique. DLP: 429 mGy-cm FINDINGS: Mild right convex curvature of the lower thoracic spine. There is ankylosis of the T9-T10 vertebral bodies. Otherwise, normal anatomic alignment. No evidence of acute fracture or traumatic subluxation. Small Schmorl's nodes noted from T12-L3. Otherwise, the vertebral body heights are maintained. Advanced degenerative disc disease at C6-C7 and C7-T1. Moderate degenerative disc disease from T11-L3. No suspicious lytic or sclerotic osseous lesions. No demonstrated evidence of osseous erosive changes. No significant abnormalities of the paraspinal musculature. Patchy airspace opacities in the right middle lobe. Coronary artery complications are present. Otherwise, limited evaluation of the intrathoracic structures without significant abnormalities. The descending thoracic aorta is of normal contour and caliber with moderate calcific atherosclerotic disease. AXIAL SPINAL LEVELS: There appears to be mild multilevel posterior disc bulging. There is mild multilevel facet joint arthropathy. There are moderate neural foraminal stenoses at T9-T10. No additional Neural foraminal stenosis. There is no demonstrated spinal canal stenosis. No overt evidence of spinal collection on limited evaluation. CT/CT thoracic spine w IV con IMPRESSION: Effectively, no contrast was utilized for this exam. 1. No evidence of acute fracture or traumatic subluxation of the thoracic spine. 2. No demonstrated suspicious lytic or sclerotic osseous lesions. No demonstrated osseous erosive changes. 3. 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 Most notably, there are moderate neural foraminal stenoses at T9-T10. No demonstrated spinal canal stenosis. 4. Patchy airspace opacities in the right middle lobe suggestive of an infectious/inflammatory process.
--- NOTE | ~2023-08-15 | XR_ITS ---
EXAMINATION: XR scapula LT, XR humerus LT CLINICAL INFORMATION: Reason for Exam pain + bacteremia COMPARISON: None. TECHNIQUE: Two views of the left humerus and 2 views of the left scapula FINDINGS: No acute fracture or dislocation. Moderate degenerative changes in the shoulder with loss of acromioclavicular joint space and some mineralization in the acromioclavicular joint which may reflect sequela chondrocalcinosis. No cortical erosion, focal osteopenia or periosteal reaction to favor osteomyelitis however MRI would be more sensitive for evaluation. No soft tissue abnormality. XR/XR humerus LT IMPRESSION: 1. No acute osseous abnormality. 2. Moderate degenerative changes in the shoulder.
[2023-08-15 19:09] VITALS: BP 107/63; BP 140/90; PULSE 100; PULSE 87; RESP 16; TEMP 36.7; O2SAT 100; O2SAT 96; BMI 20.3
--- NOTE | 2023-08-15 19:13 | PHA.MEDREC ---
Pharmacy Consult ? Medication Reconciliation Pharmacy has completed the medication reconciliation. Patient just left AMA on 08/14 from [facility]. Utilized discharge summary for med rec. Per discharge summary Eliquis and ibuprofen were discontinued. Cydney Mora, VictorianoD
--- NOTE | 2023-08-15 19:16 | ED_ITS ---
HPI - General Adult General Chief complaint: General Medical Stated complaint: INFECTION IN SPINE, [place] [facility] [place] Time Seen by Provider: 08/15/23 19:13 Source: patient Mode of arrival: EMS Limitations: no limitations History of Present Illness HPI narrative: Patient with past medical history of COPD hepatitis-C IV drug use MRSA bacteremia and abscesses had MSSA bacteremia in 06/23 was treated with long-term antibiotic at [facility] admitted here on 08/03 for metabolic encephalopathy secondary to narcotic use patient left against medical advice yesterday blood culture showed Gram-positive cocci patient advised to come back for IV antibiotic treatment patient does have a chronic low back pain no bladder or bowel incontinence no leg weakness no fever or chills patient had labs done yesterday showed WBC count of 16.4 with left shift patient does have chronic back pain also has healing wound in the sacral area and right forearm Related Data Home Medications Medication Instructions Recorded Confirmed albuterol sulfate 2.5 mg/3 mL 2.5 mg inhalation Q4H PRN 08/03/23 08/15/23 (0.083 %) solution for nebulization Shortness Of Breath Or Wheezing albuterol sulfate 90 mcg/actuation 2 puff inhalation Q4-6H PRN 08/03/23 08/15/23 aerosol inhaler Shortness Of Breath Or Wheezing cholecalciferol (vitamin D3) 25 25 mcg PO DAILY 08/03/23 08/15/23 mcg (1,000 unit) tablet clonazepam 1 mg tablet 1 mg PO BEDTIME PRN Anxiety 08/03/23 08/15/23 ferrous sulfate 325 mg (65 mg 325 mg PO BID 08/03/23 08/15/23 iron) tablet,delayed release fluticasone propionate 220 1 puff inhalation BID 08/03/23 08/15/23 mcg/actuation HFA aerosol inhaler (Flovent HFA) montelukast 10 mg tablet 10 mg PO DAILY 08/03/23 08/15/23 omeprazole 20 mg capsule,delayed 20 mg PO BID 08/03/23 08/15/23 release tiotropium bromide 18 mcg capsule 1 cap inhalation DAILY 08/03/23 08/15/23 with inhalation device (Spiriva with HandiHaler) zolpidem 5 mg tablet 5 mg PO BEDTIME PRN Insomnia 08/03/23 08/15/23 Allergies Allergy/AdvReac Type Severity Reaction Status Date / Time cephalexin [From Keflex] Allergy Severe HIVES Verified 08/15/23 19:19 clindamycin [Clindamycin] Allergy Severe HIVES Verified 08/15/23 19:19 doxycycline [Doxycycline] Allergy Severe HIVES Verified 08/15/23 19:19 erythromycin base Allergy Severe HIVES Verified 08/15/23 19:20 [Erythromycin Base] levofloxacin [From Levaquin] Allergy Severe THROAT Verified 08/15/23 19:19 TIGHTENS nitrofurantoin Allergy Severe HIVES Verified 08/15/23 19:19 [From Macrobid] Penicillins Allergy Severe HIVES Verified 08/15/23 19:19 aspirin Allergy Unknown Hives Verified 08/15/23 19:19 linezolid [From ZYVOX] Allergy Unknown UNKNOWN Verified 08/15/23 19:19 Sulfa (Sulfonamide Allergy Unknown HIVES Verified 08/15/23 19:19 Antibiotics) [SULFA (SULFONAMIDE ANTIBIOTICS)] sulfacetamide Allergy Unknown Hives Verified 08/15/23 19:19 Erythromycin Allergy Unknown Hives Uncoded 04/22/23 06:01 seafood/shellfish Allergy Unknown Facial Uncoded 04/22/23 06:01 Swelling Sulfacet-R Allergy Unknown Hives Uncoded 04/22/23 06:01 Review of Systems 2 Review of Systems: Yes all other systems are reviewed and are negative PMFSH Past Medical History Medical History Left against medical advice Bacteremia Chronic anemia MRSA cellulitis Asthma Legally blind Social History Social History Household Members: None Housing: Homeless Do you presently have visiting nurse or other home services: No Unable to assess alcohol history related to: Unknown Alcohol intake: former Patient Tobacco Use Status: Never used Tobacco Smoked in Last 30 Days: No e-Cigarette/Vaping Use: Former Use Second Hand Smoke Exposure: No Use of substances other than those prescribed or required for medical reasons: No Substance Use Type: Former Substance User Advance Directives: No Nutrition Risks: No Nutritional Risk service: No Physical Exam ED Vital Signs: Vital Signs - 24 hr 08/15/23 19:09 Temperature 98.0 F Pulse Rate 100 Respiratory Rate 16 Blood Pressure 107/63 Pulse Oximetry 96 Oxygen Delivery Method Room Air BMI result Body Mass Index 20.3 Appearance: Alert. Oriented X3. No acute distress. Eyes: PERRLA, ENT: Pharynx normal. Oral Mucosa moist Neck: Normal inspection. Neck supple. CVS: Normal heart rate and rhythm. Pulses normal. Respiratory: No respiratory distress. Equal air entry bilateral, no wheezing/rales/rhonchi Abdomen: Soft and nontender. Bowel sounds are present, no mass palpable, no CVA tenderness Skin: Skin warm and dry. Normal skin color. Normal skin turgor. Extremities: No lower extremity edema. No calf tenderness contracted both upper extremity with multiple scars in the forearm Neuro: Oriented X 3. No motor deficit. No sensory deficit.No cerebellar signs , cranial nerves II-XII intact secral sensation intact Medications Administered Generic Name Dose Route Start Last Admin Trade Name Freq PRN Reason Stop Dose Admin Omeprazole 20 mg 08/15/23 23:45 08/16/23 00:00 Omeprazole 20 Mg Capsule.Dr PO 20 mg BID GETACHEW Administration Sodium Chloride 3 ml 08/16/23 00:00 08/16/23 00:00 0.9 % Sodium Chloride Flush 3 Ml Syringe IVFLUSH 3 ml QSHIFT GETACHEW Administration Tramadol HCl 50 mg 08/15/23 23:22 08/16/23 01:31 Tramadol Hcl 50 Mg Tablet PO 50 mg Q6H PRN Administration Pain, Severe (Pain Scale 7-10) Discontinued Medications Generic Name Dose Route Start Last Admin Trade Name Freq PRN Reason Stop Dose Admin Sodium Chloride 1,000 mls @ 999 mls/hr 08/15/23 19:17 08/15/23 23:10 Ns IV 08/15/23 20:17 Infused .Q1H1M ONE Infusion Vancomycin HCl 1,000 mg/ 270 mls @ 270 mls/hr 08/15/23 19:17 08/15/23 23:00 Sodium Chloride IV 08/15/23 20:16 Infused ONCE ONE Infusion Iohexol 85 ml 08/15/23 21:46 08/15/23 21:47 Iohexol 350 Mg/Ml 100 Ml Infus..Btl IV 08/15/23 21:47 85 ml ONCE ONE Administration Morphine Sulfate 4 mg 08/15/23 23:23 08/15/23 23:55 Morphine Sulfate 4 Mg/Ml Cartridge IVPUSH 08/15/23 23:24 4 mg ONCE ONE Administration Protocol Ondansetron HCl 4 mg 08/15/23 23:23 08/15/23 23:55 Ondansetron Hcl 4 Mg/2 Ml Vial IVPUSH 08/15/23 23:24 4 mg ONCE ONE Administration Medical Decision Making Medical Decision Making [facility] Narrative: 2015: Several ultrasound-guided IV line was tried on left arm unable to place a catheter. Patient refuse IV in the right arm or in the neck or the feet only option is left arm which is contracted with scar tissue unable to get the blood or IV antibiotics or CT scan patient refusing further IV at times planning to go against medical advise will try to persuade her to get IV access in the neck or Dr. Day will try 1 more time to see whether she can place a IV line Differential Diagnosis Differential Diagnoses: The differential diagnosis associated with the presentation includes Staph bacteremia/sepsis/osteomyelitis Admission/Observation Consideration of admission/observation: Escalation of care including admission/observation considered Consult Healthcare Provider Management of the patient was discussed with: Hospitalist Lab Data [facility] Lab Attestation statement: I reviewed the patient's lab results. 08/15/23 21:30 08/15/23 21:30 Labs: Lab Results 08/15/23 Range/Units 21:30 WBC 7.2 (4.8-10.8) X10*3/uL RBC 2.41 L (4.20-5.50) X10*6/uL Hgb 7.2 L (12.0-16.0) g/dl Hct 22.6 L (37.0-47.0) % MCV 93.8 (80.0-98.0) fL MCH 29.9 (27.0-33.0) pg MCHC 31.9 (31.0-35.0) g/dl RDW 17.2 H (11.0-16.0) % Plt Count 152 L (160-400) X10*3/uL MPV 9.7 (9.4-12.3) fL Immature Gran % (Auto) 0.7 H (0.0-0.4) % Neut % (Auto) 85.7 H (45-73) % Lymph % (Auto) 10.3 L (20-40) % [place] % (Auto) 2.9 (2-11) % Eos % (Auto) 0.1 (0-4) % Baso % (Auto) 0.3 (0-2) % Lymph # (Auto) 0.7 L (1.2-4.9) X10*3/uL [place] # (Auto) 0.2 (0.1-1.2) X10*3/uL Eos # (Auto) 0.0 (0.0-0.4) X10*3/uL Baso # (Auto) 0.0 (0.0-0.2) X10*3/uL Abs Immat Gran (auto) 0.05 H (0.00-0.03) X10*3/uL Absolute Neuts (auto) 6.2 (2.0-8.3) x10*3/uL Absolute Nucleated RBC 0.000 (0.0-0.012) X10*3/uL Nucleated RBC % (auto) 0.0 (0.0-0.2) /100WBC Sodium 135 (135-145) mmol/L Potassium 3.4 (3.3-5.1) mmol/L Chloride 105 (96-108) mmol/L Carbon Dioxide 23 (22-29) mmol/L Anion Gap 10 L (12-20) BUN 18 H (9-16) mg/dL Creatinine 0.85 (0.5-1.4) mg/dL Estim Creat Clear Calc 49.8 Estimated GFR > 60 Random Glucose 94 (60-115) mg/dL Lactic Acid 2.0 (0.5-2.0) mmol/L Calcium 7.6 L D (8.4-10.2) mg/dL Total Bilirubin 0.3 (0.0-1.0) mg/dL AST 15 (5-31) U/L ALT 8 (0-31) U/L Alkaline Phosphatase 108 (39-117) U/L Total Protein 6.1 L (6.5-8.0) g/dL Albumin 1.9 L (3.5-5.0) g/dL Independent Interpretation I performed an independent interpretation of an: EKG and CT Scan Interpretation: Sinus tachycardia with heart rate of 132 beats per minute nonspecific ST T-wave changes no ST elevation no acute ischemia Radiology Impression Discussion of test interpretation with radiology: I have reviewed the radiologist's reading. Radiologist Impression: CT/CT lumbar spine w IV con IMPRESSION: No fracture. No definite evidence of osteomyelitis or discitis. Endplate irregularity at L2-L3 and L3-L4 probably representing discogenic sclerosis. Multilevel degenerative disc disease and spinal stenosis greatest at L3-L4 and L4-L5. Small right paracentral disc protrusion or herniation at L2-L3. Discharge Plan Discharge Clinical Impression: Bacteremia Patient Disposition: Admitted As Inpatient Interventions: Admission Worksheet (ED) Last Done: 08/16/23 00:43 Discharge Date/Time: 08/16/23 00:44
--- NOTE | 2023-08-15 20:47 | PC.NURSE ---
Pt BIBA from home, Pt reporting she received a call from here requesting that she came back in for infection in spine. Pt was discharge from here yesterday. Pt reports 10/10 constant pulsating lower back pain. Pt has small pressure sore to coxxyc covered up with foam guard. Pt also has open area to right inner upper arm, larger than quarter, covered with non stick dressing and wrapped. Bruising noted to neck area, Pt states I was here yesterday and this is from IV . Pt is difficult stick for IV access, Dr. Crook aware, multiple attempts made for IV access with ultrasound not successful. Plan for different provider to attempt, Pt aware of plan.
--- NOTE | 2023-08-15 21:27 | PC.NURSE ---
20G IV access obtained to left upper arm by Dr. Day with ultrasound guided. Blood work obtained and sent to lab.
[2023-08-15 21:36] LABS: MANUAL DIFF FLAG NO
[2023-08-15 21:38] LABS: Basophils Percent Auto 0.3 % (0-2); Eosinophils Percent Auto 0.1 % (0-4); Hematocrit 22.6 % (37.0-47.0); Hemoglobin 7.2 g/dl (12.0-16.0); Imm Gran Abs Auto 0.05 X10*3/uL (0.00-0.03); Imm Gran Pct Auto 0.7 % (0.0-0.4); Lymphocytes Absolute Auto 0.7 X10*3/uL (1.2-4.9); Lymphocytes Percent Auto 10.3 % (20-40); Mean Corpuscular HGB Conc 31.9 g/dl (31.0-35.0); Mean Corpuscular Hemoglobin 29.9 pg (27.0-33.0); Mean Corpuscular Volume 93.8 fL (80.0-98.0); Mean Platelet Volume 9.7 fL (9.4-12.3); Monocytes Absolute Auto 0.2 X10*3/uL (0.1-1.2); Monocytes Percent Auto 2.9 % (2-11); Neutrophils Absolute Auto 6.2 x10*3/uL (2.0-8.3); Neutrophils Percent Auto 85.7 % (45-73); Platelet Count 152 X10*3/uL (160-400); Red Blood Count 2.41 X10*6/uL (4.20-5.50); Red Cell Distribution Width 17.2 % (11.0-16.0); White Blood Count 7.2 X10*3/uL (4.8-10.8)
[2023-08-15] MEDS: iohexoL 350 MG/ML 100 ML INFUS..BTL 85 ML IV (21:47)
[2023-08-15 21:52] LABS: Alanine Aminotransferase 8 U/L (0-31); Albumin Level 1.9 g/dL (3.5-5.0); Alkaline Phosphatase 108 U/L (39-117); Anion Gap 10 (12-20); Aspartate Amino Transferase 15 U/L (5-31); Bilirubin Total 0.3 mg/dL (0.0-1.0); Blood Urea Nitrogen 18 mg/dL (9-16); Calcium 7.6 mg/dL (8.4-10.2); Carbon Dioxide 23 mmol/L (22-29); Chloride 105 mmol/L (96-108); Creatinine Clr Calc Pharmacy 49.8; Estimated Glomerular Filt Rate > 60; Glucose Random 94 mg/dL (60-115); Potassium 3.4 mmol/L (3.3-5.1); Sodium 135 mmol/L (135-145); Total Protein 6.1 g/dL (6.5-8.0)
[2023-08-15] MEDS: vancomycin HCL 1,000 MG in 0.9 % Sodium Chloride 250 ML 270 MG IV (21:56)
[2023-08-15] MEDS: 0.9 % Sodium Chloride 1,000 ML 999 ML IV (21:57)
--- NOTE | 2023-08-15 22:28 | PHA.PROG ---
Admission Date/Time: Indication: Bacteremia Weight in k kg Adjusted body weight in K kg [place] body weight in K.4 kg Obesity Dosing Indication % IBW: n/a Serum Creatinine - Last 168 Hours 08/15/23 21:30 Creatinine 0.85 Estimated CrCl and GFR - Last 168 Hours 08/15/23 21:30 Estim Creat Clear Calc 49.8 Estimated GFR > 60 Vancomycin Loading Dose: 1000 mg (~20 mg/kg) Current Vancomycin Dosing Regimen: 500 mg Q12H Date and Time for next Vancomycin Level to be drawn: 08/07 @ 0800 Pharmacist Comments on Vancomycin Plan: Patient received load dose in the ER 08/05 @ 2157 Maintenance dose vancomycin 500 mg Q12H is scheduled to start 08/16 @ 1000. Predicted AUC 432 with a trough of 14.4 level is scheduled for prior to the 4th dose pharmacy will monitor renal function daily Cydney Mora PharmD Vancomycin dosing will take advantage of [employer] as a clinical decision support tool that uses Bayesian modeling to calculate individual patient's pharmacokinetic parameters and forecast the patient's drug concentration time course with the target goal AUC 24 range of 400 - 600 mg/L/hr.
[2023-08-15 22:40] VITALS: BP 152/68; PULSE 106; RESP 20; TEMP 37.4; O2SAT 100
--- NOTE | 2023-08-15 22:58 | P.HPHOSP_ITS ---
History of Present Illness Date of Service: 08/15/23 Attending physician on admission: Sujata Hernández Chief Complaint: Bacteremia Pt is a 73-year-old female with a PMH significant for?COPD, hepatitis C, IV drug use, history of?MRSA abscesses,?history of c dif, history E. coli colitis, osteomyelitis of the humerus, clavicle, and scapula with MSSA bacteremia in June of 2023 and was treated with retirement Abx?at [facility] who was called back to the ED after lab work revealed 2/2 blood cultures positive for Staphylococcus aureus. Patient is non ambulatory and lives with a [employer]ENCH 23/04. Patient was previously hospitalized here from 08/03/2023 through 08/14/2023 and initially treated for acute blood loss anemia due to lower GI bleed ultimately attributed to infectious colitis. Patient was transfused 2 units PRBCs and H&H remained stable. Patient underwent an upper endoscopy which showed no esophagitis or Faulkner's, but did show moderate gastric erythema and non bleeding stomach ulcers. During her stay patient became encephalopathic which was attributed to use of narcotics for pain management. Yesterday patient developed fever of 103.1 and workup showed elevated procalcitonin with negative CXR, and negative RSV/flu/COVID. However patient decided to leave AMA since she she said she was exhausted and not feeling well, he wanted to go home to get a good night's sleep. Patient reports fever and chills, and 10/10 lower back pain around her sacral decubitus ulcer. In the ED patient adamantly refused central line and threatened to leave AMA if could not get peripheral IV access. In the ED patient with low-grade temp of 99.3 degrees, tachycardic up to 106, and slightly hypertensive at 152/68, satting at 100% O2 on RA. Labs were significant for H&H 7.2/22.6, platelets 152, albumin 1.9. Electrolytes WNL. Lactic acid WNL at 2.0. Hepatic function baseline. CT?of lumbar spine negative for fracture and no definitive evidence of osteomyelitis or diskitis, but did show evidence of possible discogenic sclerosis, and multilevel degenerative disc disease and spinal stenosis. EKG demonstrated sinus tachycardia of 132 with PACs, prolonged QTc of 577, and no evidence of significant ST elevations or depressions. Pt was treated with vancomycin and IVF. Pt will be admitted to the hospital for treatment further evaluation of bacteremia. [facility] Medical History Left against medical advice Bacteremia Chronic anemia MRSA cellulitis Asthma Legally blind Social History Household Members: Friend(s) Housing: Homeless Do you presently have visiting nurse or other home services: Yes Unable to assess alcohol history related to: Unknown Alcohol intake: former Patient Tobacco Use Status: Never used Tobacco Smoked in Last 30 Days: No e-Cigarette/Vaping Use: Former Use Second Hand Smoke Exposure: No Use of substances other than those prescribed or required for medical reasons: No Substance Use Type: Former Substance User Currently Displaying Signs/Symptoms of Drug Intoxication Withdrawal: No Other Past Substance Use Problem:: history of use Any prior treatment program specific to substance use: No Have you been hit, kicked, punched, or otherwise hurt by someone within the past year? If so, by whom?: No Do you feel safe in your current relationship?: No Current Relationship Is there a partner from a previous relationship who is making you feel unsafe now?: No Are you made to feel afraid or neglected: No Advance Directives: No Advance Directives on File: No Do you have thoughts of harming others: None Do you have a plan to hurt others: No Plan Recently lost weight without trying: No Eating poorly because of decreased appetite: No Nutrition Risks: No Nutritional Risk Patient : No : No Poor oral hygiene: No service: No Meds Allergies Allergy/AdvReac Type Severity Reaction Status Date / Time cephalexin [From Keflex] Allergy Severe HIVES Verified 08/15/23 19:19 clindamycin [Clindamycin] Allergy Severe HIVES Verified 08/15/23 19:19 doxycycline [Doxycycline] Allergy Severe HIVES Verified 08/15/23 19:19 erythromycin base Allergy Severe HIVES Verified 08/15/23 19:20 [Erythromycin Base] levofloxacin [From Levaquin] Allergy Severe THROAT Verified 08/15/23 19:19 TIGHTENS nitrofurantoin Allergy Severe HIVES Verified 08/15/23 19:19 [From Macrobid] Penicillins Allergy Severe HIVES Verified 08/15/23 19:19 aspirin Allergy Unknown Hives Verified 08/15/23 19:19 linezolid [From ZYVOX] Allergy Unknown UNKNOWN Verified 08/15/23 19:19 Sulfa (Sulfonamide Allergy Unknown HIVES Verified 08/15/23 19:19 Antibiotics) [SULFA (SULFONAMIDE ANTIBIOTICS)] sulfacetamide Allergy Unknown Hives Verified 08/15/23 19:19 Erythromycin Allergy Unknown Hives Uncoded 04/22/23 06:01 seafood/shellfish Allergy Unknown Facial Uncoded 04/22/23 06:01 Swelling Sulfacet-R Allergy Unknown Hives Uncoded 04/22/23 06:01 Active Medications: Current Medications Acetaminophen (Acetaminophen 325 Mg Tablet) 650 mg PO Q6H PRN PRN Reason: Pain, Mild (Pain Scale 1-3) Enoxaparin Sodium (Enoxaparin Sodium 40 Mg/0.4 Ml Syringe) 40 mg SUBCUT Q24H [facility] Vancomycin HCl 500 mg/ Sodium (Chloride) 110 mls @ 110 mls/hr IV Q12H [facility] Melatonin (Melatonin 3 Mg Tablet) 6 mg PO BEDTIME PRN PRN Reason: Insomnia Ondansetron HCl (Ondansetron Hcl 4 Mg/2 Ml Vial) 4 mg IVPUSH Q8H PRN PRN Reason: Nausea and Vomiting Pharmacy Consult (Consult Rx Vancomycin Dosing) 1 each MISCELLANE DAILY PRN PRN Reason: Consult order Sodium Chloride (0.9 % Sodium Chloride Flush 3 Ml Syringe) 3 ml IVFLUSH QSHIFT [facility] Home Medications Medication Instructions Recorded Confirmed Last Taken Type albuterol sulfate 2.5 mg/3 mL 2.5 mg inhalation Q4H PRN 08/03/23 08/15/23 Unknown History (0.083 %) solution for nebulization Shortness Of Breath Or Wheezing albuterol sulfate 90 mcg/actuation 2 puff inhalation Q4-6H PRN 08/03/23 08/15/23 Unknown History aerosol inhaler Shortness Of Breath Or Wheezing cholecalciferol (vitamin D3) 25 25 mcg PO DAILY 08/03/23 08/15/23 Unknown History mcg (1,000 unit) tablet clonazepam 1 mg tablet 1 mg PO BEDTIME PRN Anxiety 08/03/23 08/15/23 Unknown History ferrous sulfate 325 mg (65 mg 325 mg PO BID 08/03/23 08/15/23 Unknown History iron) tablet,delayed release fluticasone propionate 220 1 puff inhalation BID 08/03/23 08/15/23 Unknown History mcg/actuation HFA aerosol inhaler (Flovent HFA) montelukast 10 mg tablet 10 mg PO DAILY 08/03/23 08/15/23 Unknown History omeprazole 20 mg capsule,delayed 20 mg PO BID 08/03/23 08/15/23 Unknown History release tiotropium bromide 18 mcg capsule 1 cap inhalation DAILY 08/03/23 08/15/23 Unknown History with inhalation device (Spiriva with HandiHaler) zolpidem 5 mg tablet 5 mg PO BEDTIME PRN Insomnia 08/03/23 08/15/23 Unknown History Physical Exam 2 Vital Signs and Narrative: Vital Signs: Last Vital Signs Temp 99.3 F 08/15/23 22:40 Pulse 106 H 08/15/23 22:40 Resp 20 08/15/23 22:40 BP 152/68 H 08/15/23 22:40 Pulse Ox 100 08/15/23 22:40 O2 Del Method Room Air 08/15/23 22:40 BMI result Body Mass Index 20.3 Constitutional: Alert, in no acute distress. Mental Status: Oriented to person, place and time. Eyes: Pt legally blind. Ear, Nose, and Throat: Oropharynx clear, mucous membranes moist. Ears and nose without deformities. Trachea midline. Respiratory: Clear to auscultation bilaterally. No wheezing, rales, or rhonchi. Cardiovascular: S1, S2 regular, tachycardic. No murmurs, rubs, or gallops. Gastrointestinal: Abdomen soft, non-tender, non-distended. Normal bowel sounds. Neurologic: Cranial nerves II-XII are grossly intact bilaterally. No focal neurological deficits. Moves all extremities spontaneously. Skin: Multiple wounds, including in the sacral area, on right upper extremity antecubital fossa, and left forearm. See pictures below. Also significant ecchymosi extending upper chest lower neck. Musculoskeletal: No cyanosis or clubbing. Extremities: No edema. Psychiatric: Normal mood and affect. Results Labs 08/15/23 21:30 08/15/23 21:30 Labs: Laboratory Results - last 24 hr 08/15/23 21:30 MCV 93.8 MCH 29.9 MCHC 31.9 RDW 17.2 H Plt Count 152 L MPV 9.7 Immature Gran % (Auto) 0.7 H Neut % (Auto) 85.7 H Lymph % (Auto) 10.3 L [place] % (Auto) 2.9 Eos % (Auto) 0.1 Baso % (Auto) 0.3 Lymph # (Auto) 0.7 L [place] # (Auto) 0.2 Eos # (Auto) 0.0 Baso # (Auto) 0.0 Abs Immat Gran (auto) 0.05 H Absolute Neuts (auto) 6.2 Absolute Nucleated RBC 0.000 Nucleated RBC % (auto) 0.0 Anion Gap 10 L Estim Creat Clear Calc 49.8 Estimated GFR > 60 Random Glucose 94 Lactic Acid 2.0 Calcium 7.6 L D Total Bilirubin 0.3 AST 15 ALT 8 Alkaline Phosphatase 108 Total Protein 6.1 L Albumin 1.9 L Imaging Radiologist's Impressions: Impressions Lumbar Spine CT 08/15/23 21:47 IMPRESSION: No fracture. No definite evidence of osteomyelitis or discitis. Endplate irregularity at L2-L3 and L3-L4 probably representing discogenic sclerosis. Multilevel degenerative disc disease and spinal stenosis greatest at L3-L4 and L4-L5. Small right paracentral disc protrusion or herniation at L2-L3. Assessment and Plan (1) Bacteremia: Status: Acute Plan Pt is a 73-year-old female with a PMH significant for?COPD, hepatitis C, IV drug use, history of?MRSA abscesses,?history of c dif, history E. coli colitis, osteomyelitis of the humerus, clavicle, and scapula with MSSA bacteremia in June of 2023 and was treated with retirement Abx?at [facility] who was called back to the ED after lab work revealed 2/2 blood cultures positive for Staphylococcus aureus. Patient will be admitted to the hospital for treatment and further evaluation of bacteremia. Bacteremia 2/2 blood cultures positive for Staphylococcus aureus on 08/14/2023 Unclear etiology: CXR negative, RSV/flu/COVID negative, lumbar spine CT negative for definitive evidence of osteomyelitis or discitis, ?GI source Patient does not meet sepsis criteria: Tachycardia, but no tachypnea, leukocytosis, or significant fever; lactic acid WNL at 2.0 Will treat with vanco ID consult Follow CBC Anemia Patient with chronic anemia, H&H currently 7.2/22.6, down from 7.7/24.3 yesterday Required two units of PRBCs during last admission Workup revealed non-bleeding stomach ulcers, LGIB ultimately attributed to infectious colitis seen on pathology Pt currently under transfusion threshold, will watch and trend labs for now Will check stool for occult blood Follow CBC Wounds Wound Care consulted duirng last admission. Recommended: Coccyx wound, unstageable > cleanse with normal saline, apply triad to periwound, lightly pack coccyx with Durafiber Ag cover with sacral foam dressing, daily Right arm AC, abrasion > cleanse with normal saline, apply skin prep to periwound, lightly packed with Durafiber Ag, cover with foam dressing, daily Left forearm> cleanse with normal saline, or cover scabbed area with hydrocolloid dressing, change every 3 days In addition, frequent turning/repositioning every 2 hours to offload bony prominences along with air loss mattress. Hypomagnesmia Patient with a history of low magnesium requiring repletion Will check Mag tomorrow COPD Not in acute exacerbation Continue home inhalers GERD Continue PPI Mood disorder Continue home meds Full Code Attending:?Dr. Hernández DVT Prophylaxis: Pneumatic boots d/t anemia close to transfusion threshold Pt will require a hospitalization of at least two nights for treatment of?bacteremia with IV antibiotics and specialist consultation. Quality Stroke Does the patient have a stroke diagnosis?: No VTE Prior VTE?: No VTE Risk Level:: Medical - moderate - high VTE Device Contraindication: Treatment Not Indicated VTE Drug Contraindication: N/A - Med Ordered
--- NOTE | 2023-08-15 23:33 | PC.NURSE ---
Pt reporting intermittent throbbing chest pain, EKG obtained and reviewed by provider. New order for trop obtained.
[2023-08-15] MEDS: ondansetron HCL 4 MG/2 ML VIAL IVPUSH (23:55)
[2023-08-15] MEDS: Morphine Sulfate 4 MG/ML CARTRIDGE IVPUSH (23:55)
[2023-08-16] VITALS (13 sets, daily range): BP systolic 94–128; BP diastolic 42–56; PULSE 98–120; RESP 12–22; TEMP 36.1–38.8; O2SAT 93–100; BMI 21.9
[2023-08-16 00:15] LABS: Troponin-I High Sensitivity 4.6 ng/L (<3.5-17.0)
--- NOTE | 2023-08-16 00:33 | PC.NURSE ---
Rn to Rn report given to Aurdey. Pt will be transported to room 383, Pt aware of plan.
[2023-08-16] MEDS: traMADoL HCL 50 MG TABLET PO ×2 (01:31→09:24)
[2023-08-16] MEDS: clonazePAM 1 MG TABLET PO (02:35)
--- NOTE | 2023-08-16 02:52 | PC.NURSE ---
0050 PATIENT ADMITTED TO [place] [id number] VIA STRETCHER FROM ED SETTING WITH BACTEREMIA. PT [place] [facility] [place] PRIOR AMA AND WAS CALLED BACK DUE TO POSITVE BLOOD CULTURES AND ADVISED TO RETURN WHICH SHE DID VIA AMBULANCE. PT A/O COLOR WNL, SKIN W/D, LING SAUCEDO DIM. DURING ED RN REPORT IT WAS TOLD ST WITH HR 120'S AND RN STATED MD AWARE. NURSING FAN BLADE TRUER ALERTED AND SHE CALLED AND SPOKE EO ED RN AND OKAY FOR ADMIT [place] [id number]. [id number] 95% ROOM AIR. PT WITH SKIN ISSUES PREVIOUS AND PHOTOS IN ED REPORT. FOAM DRESSING APPLIED TO OPEN AREA ON SACRAL/COCCYX AREA, DRY, NO ODOR, VERY TENDER SURROUNDING, BUT NO REDNESS. OPEN AREA TO RIGHT INNER ELBOW WITH DRESSING , NO DRNG, WOUND BED RED, NO ODOR. BILATERAL ARMS WITH MULTIPLE SCARRING, LIMITED ROM, RIGID TO EXTENDED. PT INCONTINENT BOWEL AND BLADDER, DECLINES USE OF A PUREWICK. OLD DEEP PUPLE BRUISING REMAINS PREVIOUS TO UPPER CHEST AND NECK. # 20 ANGIO TO LEFT UPPER ARM. PT IS LEGALLY BLIND BUT ABLE TO SEE AND PUSH RED CALL SAGE BUTTON NEEDED. MEDICATED PRN PAIN AND ANXIETY, REPOSITIONED, WARM BLANKET APPLIED, FLUIDS TAKEN WELL. AP NOTED AT 104. WILL CONTINUE TO MONITOR CLOSELY, HFR PROTOCOL INITIATED.
[2023-08-16] MEDS: Lactated Ringers 1,000 ML 999 ML IV (05:41)
[2023-08-16 06:15] LABS: MANUAL DIFF FLAG NO
[2023-08-16 06:36] LABS: Basophils Percent Auto 0.2 % (0-2); Imm Gran Abs Auto 0.06 X10*3/uL (0.00-0.03); Imm Gran Pct Auto 0.7 % (0.0-0.4); Lymphocytes Absolute Auto 1.9 X10*3/uL (1.2-4.9); Lymphocytes Percent Auto 22.7 % (20-40); Mean Corpuscular HGB Conc 31.8 g/dl (31.0-35.0); Mean Corpuscular Hemoglobin 30.2 pg (27.0-33.0); Mean Platelet Volume 10.3 fL (9.4-12.3); Monocytes Absolute Auto 0.6 X10*3/uL (0.1-1.2); Neutrophils Absolute Auto 5.8 x10*3/uL (2.0-8.3); Neutrophils Percent Auto 69.4 % (45-73); Platelet Count 124 X10*3/uL (160-400); Red Blood Count 2.02 X10*6/uL (4.20-5.50); Red Cell Distribution Width 16.9 % (11.0-16.0); White Blood Count 8.3 X10*3/uL (4.8-10.8)
[2023-08-16 06:41] LABS: Hemoglobin 6.1 g/dl (12.0-16.0)
[2023-08-16 06:42] LABS: Hematocrit 19.2 % (37.0-47.0)
[2023-08-16 06:43] LABS: Anion Gap 11 (12-20); Blood Urea Nitrogen 14 mg/dL (9-16); Calcium 7.1 mg/dL (8.4-10.2); Carbon Dioxide 19 mmol/L (22-29); Chloride 106 mmol/L (96-108); Creatinine Clr Calc Pharmacy 61.8; Estimated Glomerular Filt Rate > 60; Glucose Random 74 mg/dL (60-115); Magnesium 1.2 mg/dL (1.6-2.6); Potassium 4.2 mmol/L (3.3-5.1); Sodium 132 mmol/L (135-145)
--- NOTE | 2023-08-16 07:00 | CA_ITS ---
Transthoracic Echocardiogram Patient (Last, First, Middle): Elli Rivers, Gender: Female Date of : 1950 Age: 73 Procedure Date: 08/16/2023 Procedure Type: Transthoracic Echocardiogram Location: S3E Height: 160.02 cm Weight: 55.79 kg BSA: 1.57 m2 Heart Rate: bpm BP: 94 / 42 mmHg Pediatrician Managing Partner: RENEE Referring MD: Mariusz Jeffries MD Symptoms: staph aureus bacteremia r/o veg Study Quality: Fair ECG Rhythm: Sinus Conclusions: - The left ventricular systolic function is normal. The calculated ejection fraction is 66% by biplane method. - There is moderate calcification of the aortic valve. - There is mild mitral annular calcification. - Mild pulmonary hypertension is present. - The tricuspid valve was not well visualized. Cannot exclude vegetation. Findings Left Ventricle Normal left ventricular cavity size. There is normal left ventricular wall thickness. The left ventricular systolic function is normal. The calculated ejection fraction is 66% by biplane method. There is no evidence of regional wall motion abnormalities. Diastolic function is normal for age. Right Ventricle Normal right ventricular cavity size and systolic function. Atria Both atria are normal in size. Aortic Valve There is moderate calcification of the aortic valve. There is no aortic valve stenosis. There is no aortic valve regurgitation. Mitral Valve The mitral valve appears normal. There is mild mitral annular calcification. There is no mitral valve regurgitation. There is no mitral valve stenosis. Pulmonic Valve The pulmonic valve is likely normal. Tricuspid Valve The tricuspid valve was not well visualized. There is mild tricuspid valve regurgitation. Mild pulmonary hypertension is present. Cannot exclude vegetation. Great Vessels The asc aorta is normal in size. Small plaque is seen in the sino tubular ridge. Venous The inferior vena cava is normal in size and collapses greater than 50% with inspiration. Pericardium/Pleural There is no evidence of pericardial effusion. Prior Study Comparison Changes noted compared to prior study dated: 03/27/2009. Valvular calcification noted. Recommendations, Care & Conclusions Consider a NIC if clinically appropriate. Measurements 2D Linear Measurements IVSd: 0.87 0.6-0.9/0.6-1.0 cm LVIDd: 4.38 3.9-5.3/4.2-5.9 cm LVIDd Index: 2.79 2.4-3.2/2.2-3.1 cm/m2 LVIDs: 2.74 2.0-3.6 cm LVPWd: 1.03 0.7-1.1 cm LA Diam: 3.10 2.7-3.8/3.0-4.0 cm LAIDs Index: 1.97 1.5-2.3 cm/m2 LV Mass: 170.56 67-162/88-224 g LV Mass Index: 108.64 43-95/49-115 g/m2 LVOT Diam: 2.10 3.0+(-)1.3 cm 2D Systolic Function EF 4C: 74.00 >55% EF 2C: 56.40 >55% EF BiP: 65.50 >55% Mitral Valve MV Pk E: 0.65 MV PK A: 0.65 MV Decel Time: 205.00 E/A: 1.00 E'Lateral: 10.90 E'Medial: 7.62 E/E' Med: 8.50 E/E' Lat: 6.00 PHT: 60.00 MVA PHT: 3.67 Decel [place]: 3.18 Aortic Valve AoV Pk [place]: 1.59 AoV Mn [place]: 1.01 AoV VTI: 0.25 AoV Pk Grad: 10.00 Aov Mn Grad: 5.00 TAI Cont.VTI: 2.59 LVOT LVOT Pk [place]: 0.98 LVOT Mn [place]: 0.68 LVOT VTI: 0.19 LVOT Pk Grad: 4.00 LVOT Mn Grad: 2.00 LVOT Diam: 2.10 LVOT Area: 3.46 Diastolic Function MV Pk E: 0.65 MV Pk A: 0.65 E/A: 1.00 E'Medial: 7.62 E/E' Med: 8.50 E' Laterial: 10.90 E/E' Lat: 6.00 Right Ventricle TAPSE (mm): 20.00 TVS' [place]: 13.80 Tricuspid Valve TR Pk [place]: 2.97 TR Pk Grad: 35.00 RA Press: 3.00 RVSP: 38.00 Great Vessels Aorta Sinus of Valsalva: 2.96 2.0-3.5 cm Ao Asc: 2.70 2.1-3.4 cm Updated in Other Vendor System with Status of Final Joseph Su MD electronically signed on 08/17/2023 8:44:20 AM with status of Final
[2023-08-16] MEDS: Tiotropium Bromide 2.5 mcg 1 PUFF/2.5 MCG MIST.INHAL 2 PUFF INHALE (08:16)
[2023-08-16] MEDS: Fluticasone Propionate 250 MCG BLST.W.DEV 1 PUFF INHALE (08:16)
[2023-08-16] MEDS: Cholecalciferol (Vitamin D3) 25 MCG TABLET PO (09:23)
[2023-08-16] MEDS: Ferrous Sulfate 324 MG TABLET.DR PO ×2 (09:23→21:37)
[2023-08-16] MEDS: Omeprazole 20 MG CAPSULE.DR PO ×3 (09:23→21:37)
[2023-08-16] MEDS: Magnesium Sulfate/H2O 2 GM/50 ML PIGGYBACK IV (09:26)
[2023-08-16] MEDS: 0.9 % Sodium Chloride Flush 3 ML SYRINGE IVFLUSH ×3 (09:27→21:37)
[2023-08-16 10:06] LABS: Hematocrit 23.1 % (37.0-47.0); Hemoglobin 7.3 g/dl (12.0-16.0); Mean Corpuscular HGB Conc 31.6 g/dl (31.0-35.0); Mean Corpuscular Volume 95.1 fL (80.0-98.0); Mean Platelet Volume 9.8 fL (9.4-12.3); Platelet Count 137 X10*3/uL (160-400); Red Blood Count 2.43 X10*6/uL (4.20-5.50); Red Cell Distribution Width 16.9 % (11.0-16.0); White Blood Count 7.1 X10*3/uL (4.8-10.8)
[2023-08-16] MEDS: Albuterol Sulfate (0.083%) 2.5 MG/3 ML VIAL.NEB INHALE (10:11)
[2023-08-16] MEDS: vancomycin HCL 500 MG in 0.9 % Sodium Chloride 100 ML 110 MG IV ×2 (11:20→21:37)
--- NOTE | 2023-08-16 12:43 | P.PNIM_ITS ---
Subjective Subjective Date of Service: 08/16/23 Interval History: c/o lower back pain no fever Hb 6.1 on fingerstick but repeat venous draw shows 7.3 BCx from 08/14 Staph aureus, also positive from 08/15 Review of Systems Review of Systems: Yes all other systems are reviewed and are negative Physical Exam 2 Vital Signs: Vital Signs: Last Vital Signs Temp 99.4 F 08/16/23 08:00 Pulse 113 H 08/16/23 10:14 Resp 18 08/16/23 10:14 BP 118/56 L 08/16/23 08:00 Pulse Ox 100 08/16/23 08:00 O2 Del Method Room Air 08/16/23 08:00 BMI result Body Mass Index 21.9 Gen: chronically ill, pale HEENT: sclera anicteric, moist mucus membranes, R eye blind Neck: supple Lungs: clear to auscultation bilaterally Heart: regular rate and rhythm, no murmurs Abd: soft, non-tender, non-distended Ext: no edema Skin: warm/well-perfused, extensive ecchymoses, coccygeal pressure wound unstageable Neuro: alert and oriented x3, no focal findings Psych: appropriate affect Objective Data Active Medications Acetaminophen (Acetaminophen 325 Mg Tablet) 650 mg PO Q6H PRN PRN Reason: Pain, Mild (Pain Scale 1-3) Albuterol Sulfate (Albuterol Sulfate (0.083%) 2.5 Mg/3 Ml Vial.Neb) 2.5 mg INHALE Q4H PRN PRN Reason: Shortness Of Breath Or Wheezing Last Admin: 08/16/23 10:11 Dose: 2.5 mg Documented By: ARMANI Albuterol Sulfate (Albuterol Sulfate 90 Mcg 8 Gm Inhaler) 2 puff INHALE Q4H PRN PRN Reason: Shortness Of Breath Or Wheezing Clonazepam (Clonazepam 1 Mg Tablet) 1 mg PO BEDTIME PRN PRN Reason: Anxiety Last Admin: 08/16/23 02:35 Dose: 1 mg Documented By: PIERRE Ferrous Sulfate (Ferrous Sulfate 324 Mg Tablet.) 324 mg PO BID GETACHEW Last Admin: 08/16/23 09:23 Dose: 324 mg Documented By: BROSinai Fluticasone Propionate (Fluticasone Propionate 250 Mcg Blst.W.Dev) 1 puff INHALE RBID [facility] Last Admin: 08/16/23 08:16 Dose: 1 puff Documented By: ARMANI Vancomycin HCl 500 mg/ Sodium (Chloride) 110 mls @ 110 mls/hr IV Q12H [facility] Last Admin: 08/16/23 11:20 Dose: 110 mls/hr Documented By: BOBBY Melatonin (Melatonin 3 Mg Tablet) 6 mg PO BEDTIME PRN PRN Reason: Insomnia Montelukast Sodium (Montelukast Sodium 10 Mg Tablet) 10 mg PO BEDTIME [facility] Omeprazole (Omeprazole 20 Mg Capsule.Dr) 20 mg PO BID [facility] Last Admin: 08/16/23 09:23 Dose: 20 mg Documented By: BOBBY Ondansetron HCl (Ondansetron Hcl 4 Mg/2 Ml Vial) 4 mg IVPUSH Q8H PRN PRN Reason: Nausea and Vomiting Pharmacy Consult (Consult Rx Vancomycin Dosing) 1 each MISCELLANE DAILY PRN PRN Reason: Consult order Sodium Chloride (0.9 % Sodium Chloride Flush 3 Ml Syringe) 3 ml IVFLUSH QSHIFT [facility] Last Admin: 08/16/23 09:27 Dose: 3 ml Documented By: BOBBY Tiotropium [place] (Tiotropium [place] 2.5 Mcg 1 Puff/2.5 Mcg Mist.Inhal) 2 puff INHALE RDAILY [facility] Last Admin: 08/16/23 08:16 Dose: 2 puff Documented By: ARMANI Tramadol HCl (Tramadol Hcl 50 Mg Tablet) 50 mg PO Q6H PRN PRN Reason: Pain, Severe (Pain Scale 7-10) Last Admin: 08/16/23 09:24 Dose: 50 mg Documented By: BOBBY Vitamin D (Cholecalciferol (Vitamin D3) 25 Mcg Tablet) 25 mcg PO DAILY [facility] Last Admin: 08/16/23 09:23 Dose: 25 mcg Documented By: BOBBY Zolpidem Tartrate (Zolpidem Tartrate 5 Mg Tablet) 5 mg PO BEDTIME PRN PRN Reason: Insomnia Labs 08/16/23 09:53 08/16/23 06:03 Labs: Laboratory Results - last 24 hr 08/15/23 08/16/23 08/16/23 21:30 06:03 08:54 MCV 93.8 95.0 MCH 29.9 30.2 MCHC 31.9 31.8 RDW 17.2 H 16.9 H Plt Count 152 L 124 L MPV 9.7 10.3 Immature Gran % (Auto) 0.7 H 0.7 H Neut % (Auto) 85.7 H 69.4 Lymph % (Auto) 10.3 L 22.7 [place] % (Auto) 2.9 7.0 Eos % (Auto) 0.1 0.0 Baso % (Auto) 0.3 0.2 Lymph # (Auto) 0.7 L 1.9 [place] # (Auto) 0.2 0.6 Eos # (Auto) 0.0 0.0 Baso # (Auto) 0.0 0.0 Abs Immat Gran (auto) 0.05 H 0.06 H Absolute Neuts (auto) 6.2 5.8 Absolute Nucleated RBC 0.000 0.000 Nucleated RBC % (auto) 0.0 0.0 Hold Purple Top SEE NOTE Hold Blue Top SEE NOTE Anion Gap 10 L 11 L Estim Creat Clear Calc 49.8 61.8 Estimated GFR > 60 > 60 Random Glucose 94 74 Lactic Acid 2.0 Calcium 7.6 L D 7.1 L D Magnesium 1.2 L* Total Bilirubin 0.3 AST 15 ALT 8 Alkaline Phosphatase 108 Total Protein 6.1 L Albumin 1.9 L Hold Yellow Top See Note Blood Type AB Positive Antibody Screen NEGATIVE Crossmatch See Detail 08/16/23 09:53 MCV 95.1 MCH 30.0 MCHC 31.6 RDW 16.9 H Plt Count 137 L MPV 9.8 Immature Gran % (Auto) Neut % (Auto) Lymph % (Auto) [place] % (Auto) Eos % (Auto) Baso % (Auto) Lymph # (Auto) [place] # (Auto) Eos # (Auto) Baso # (Auto) Abs Immat Gran (auto) Absolute Neuts (auto) Absolute Nucleated RBC 0.000 Nucleated RBC % (auto) 0.0 Hold Purple Top Hold Blue Top Anion Gap Estim Creat Clear Calc Estimated GFR Random Glucose Lactic Acid Calcium Magnesium Total Bilirubin AST ALT Alkaline Phosphatase Total Protein Albumin Hold Yellow Top Blood Type Antibody Screen Crossmatch Microbiology Microbiology Results: Microbiology 08/15/23 21:30 Blood Culture - Preliminary Blood - Venous Prelim: GPC Gram Stain only 08/15/23 21:30 Blood Culture - Preliminary Blood - Venous Prelim: GPC Gram Stain only Assessment and Plan (1) Bacteremia: Status: Acute Plan d2 73yo F with COPD, HCV, hx IDU, hx MRSA abscesses, hx Cdiff, hx E coli colitis, hx osteomyelitis of humerus/clavicle/scapula with MSSA bacteremia and [place] [facility] [place] chronic anemia recently admitted here 08/03/23 for anemia left AMA 08/14/23 despite fever concerning for infection found to have Staph aureus bacteremia and called back to hospital and re- admitted Staph aureus bacteremia - vancomycin d2, BCx from 08/14 and 08/15 positive, repeat on 08/17, TTE to r/o IE, ID consult acute/chronic anemia - transfused 2u pRBCs last admission; scope revealed non-bleeding stomach ulcers and infectious colitis - give 1u pRBCs today hypoMg - replete, recheck in AM wounds - Wound Care consulted last admission. Recommended: Coccyx wound, unstageable > cleanse with normal saline, apply triad to periwound, lightly pack coccyx with Durafiber Ag cover with sacral foam dressing, daily Right arm AC, abrasion > cleanse with normal saline, apply skin prep to periwound, lightly packed with Durafiber Ag, cover with foam dressing, daily Left forearm> cleanse with normal saline, or cover scabbed area with hydrocolloid dressing, change every 3 days In addition, frequent turning/repositioning every 2 hours to offload bony prominences along with air loss mattress. COPD - continue Flovent + Spiriva, prn albuterol GERD - continue PPI mood disorder - clonazepam + zolpidem VTE ppx - SCDs given severe anemia and recent GI bleed dispo - TBD In my clinical judgment, the patient requires continued inpatient hospitalization for the following reasons: IV ABX, bacteraemia Total time managing care of this patient today: 45 minutes. Quality Stroke Does the patient have a stroke diagnosis?: No VTE Prior VTE?: No VTE Risk Level:: Medical - moderate - high VTE Device Contraindication: Treatment Not Indicated VTE Drug Contraindication: N/A - Med Ordered
[2023-08-16] MEDS: Acetaminophen 325 MG TABLET 650 MG PO ×2 (12:51→22:02)
[2023-08-16] MEDS: Lidocaine 4 % Patch ADH..PATCH 1 PATCH TRANSDERMA (14:18)
--- NOTE | 2023-08-16 16:19 | MHC.CM.PN ---
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
[2023-08-16] MEDS: Morphine Sulfate 2 MG/ML CARTRIDGE IVPUSH ×2 (17:21→21:54)
[2023-08-16] MEDS: Montelukast Sodium 10 MG TABLET PO (21:37)
[2023-08-17] MEDS: clonazePAM 1 MG TABLET PO ×2 (00:35→19:40)
[2023-08-17] MEDS: Morphine Sulfate 2 MG/ML CARTRIDGE IVPUSH ×3 (02:15→14:16)
[2023-08-17 03:14] VITALS: BP 112/54; PULSE 99; RESP 18; TEMP 37.2; O2SAT 97
[2023-08-17] MEDS: Cholecalciferol (Vitamin D3) 25 MCG TABLET PO (07:49)
[2023-08-17] MEDS: 0.9 % Sodium Chloride Flush 3 ML SYRINGE IVFLUSH ×3 (07:49→19:40)
[2023-08-17] MEDS: Omeprazole 20 MG CAPSULE.DR PO ×2 (07:49→19:40)
[2023-08-17] MEDS: Ferrous Sulfate 324 MG TABLET.DR PO ×2 (07:49→19:40)
[2023-08-17] MEDS: Lidocaine 4 % Patch ADH..PATCH 1 PATCH TRANSDERMA (07:50)
[2023-08-17] MEDS: Tiotropium Bromide 2.5 mcg 1 PUFF/2.5 MCG MIST.INHAL 2 PUFF INHALE (07:56)
[2023-08-17] MEDS: Fluticasone Propionate 250 MCG BLST.W.DEV 1 PUFF INHALE ×2 (07:56→19:55)
[2023-08-17 08:00] VITALS: BP 109/53; PULSE 113; RESP 18; TEMP 36.9; O2SAT 97
[2023-08-17 08:01] VITALS: PULSE 99; RESP 18; O2SAT 96
[2023-08-17] MEDS: Albuterol Sulfate (0.083%) 2.5 MG/3 ML VIAL.NEB INHALE (08:01)
--- NOTE | 2023-08-17 09:48 | P.PNIM_ITS ---
Subjective Subjective Date of Service: 08/17/23 Interval History: c/o neck and scapula pain febrile to 101.8 overnight Review of Systems Review of Systems: Yes all other systems are reviewed and are negative Physical Exam 2 Vital Signs: Vital Signs: Last Vital Signs Temp 98.5 F 08/17/23 08:00 Pulse 99 08/17/23 08:01 Resp 18 08/17/23 08:01 BP 109/53 L 08/17/23 08:00 Pulse Ox 97 08/17/23 08:00 O2 Del Method Room Air 08/17/23 08:00 BMI result Body Mass Index 21.9 Gen: chronically ill, pale HEENT: sclera anicteric, moist mucus membranes, R eye blind Neck: supple, midline tenderness posteriorly Lungs: clear to auscultation bilaterally Heart: regular rate and rhythm, no murmurs Abd: soft, non-tender, non-distended Ext: no edema Skin: warm/well-perfused, extensive ecchymoses, coccygeal pressure wound unstageable Neuro: alert and oriented x3, no focal findings Psych: appropriate affect Objective Data Active Medications Acetaminophen (Acetaminophen 325 Mg Tablet) 650 mg PO Q6H PRN PRN Reason: Pain, Mild (Pain Scale 1-3) Last Admin: 08/16/23 22:02 Dose: 650 mg Documented By: DARYL Albuterol Sulfate (Albuterol Sulfate (0.083%) 2.5 Mg/3 Ml Vial.Neb) 2.5 mg INHALE Q4H PRN PRN Reason: Shortness Of Breath Or Wheezing Last Admin: 08/17/23 08:01 Dose: 2.5 mg Documented By: ARMANI Albuterol Sulfate (Albuterol Sulfate 90 Mcg 8 Gm Inhaler) 2 puff INHALE Q4H PRN PRN Reason: Shortness Of Breath Or Wheezing Clonazepam (Clonazepam 1 Mg Tablet) 1 mg PO BEDTIME PRN PRN Reason: Anxiety Last Admin: 08/17/23 00:35 Dose: 1 mg Documented By: DARYL Ferrous Sulfate (Ferrous Sulfate 324 Mg Tablet.) 324 mg PO BID [facility] Last Admin: 08/17/23 07:49 Dose: 324 mg Documented By: MIL Fluticasone Propionate (Fluticasone Propionate 250 Mcg Blst.W.Dev) 1 puff INHALE RBID [facility] Last Admin: 08/17/23 07:56 Dose: 1 puff Documented By: ARMANI Vancomycin HCl 500 mg/ Sodium (Chloride) 110 mls @ 110 mls/hr IV Q12H [facility] Last Infusion: 08/16/23 22:51 Dose: Infused Documented By: DARYL Lidocaine (Lidocaine 4 % Patch Adh..Patch) 1 patch TRANSDERMA DAILY [facility]; Protocol Last Admin: 08/17/23 07:50 Dose: 1 patch Documented By: MIL Melatonin (Melatonin 3 Mg Tablet) 6 mg PO BEDTIME PRN PRN Reason: Insomnia Montelukast Sodium (Montelukast Sodium 10 Mg Tablet) 10 mg PO BEDTIME [facility] Last Admin: 08/16/23 21:37 Dose: 10 mg Documented By: DARYL Morphine Sulfate (Morphine Sulfate 2 Mg/Ml Cartridge) 2 mg IVPUSH Q4H PRN; Protocol PRN Reason: severe pain Last Admin: 08/17/23 07:49 Dose: 2 mg Documented By: MIL Omeprazole (Omeprazole 20 Mg Capsule.Dr) 20 mg PO BID [facility] Last Admin: 08/17/23 07:49 Dose: 20 mg Documented By: MIL Ondansetron HCl (Ondansetron Hcl 4 Mg/2 Ml Vial) 4 mg IVPUSH Q8H PRN PRN Reason: Nausea and Vomiting Pharmacy Consult (Consult Rx Vancomycin Dosing) 1 each MISCELLANE DAILY PRN PRN Reason: Consult order Sodium Chloride (0.9 % Sodium Chloride Flush 3 Ml Syringe) 3 ml IVFLUSH QSHIFT [facility] Last Admin: 08/17/23 07:49 Dose: 3 ml Documented By: MIL Tiotropium [place] (Tiotropium [place] 2.5 Mcg 1 Puff/2.5 Mcg Mist.Inhal) 2 puff INHALE RDAILY [facility] Last Admin: 08/17/23 07:56 Dose: 2 puff Documented By: ARMANI Tramadol HCl (Tramadol Hcl 50 Mg Tablet) 50 mg PO Q6H PRN PRN Reason: Pain, Severe (Pain Scale 7-10) Last Admin: 08/16/23 09:24 Dose: 50 mg Documented By: BROB Vitamin D (Cholecalciferol (Vitamin D3) 25 Mcg Tablet) 25 mcg PO DAILY [facility] Last Admin: 08/17/23 07:49 Dose: 25 mcg Documented By: MIL Zolpidem Tartrate (Zolpidem Tartrate 5 Mg Tablet) 5 mg PO BEDTIME PRN PRN Reason: Insomnia Labs 08/16/23 09:53 08/16/23 06:03 Labs: Laboratory Results - last 24 hr 08/16/23 08/16/23 08:54 09:53 MCV 95.1 MCH 30.0 MCHC 31.6 RDW 16.9 H Plt Count 137 L MPV 9.8 Absolute Nucleated RBC 0.000 Nucleated RBC % (auto) 0.0 Blood Type AB Positive Antibody Screen NEGATIVE Crossmatch See Detail Microbiology Microbiology Results: Microbiology 08/15/23 21:30 Blood Culture - Preliminary Blood - Venous Prelim: GPC Gram Stain only 08/15/23 21:30 Blood Culture - Preliminary Blood - Venous Prelim: GPC Gram Stain only Assessment and Plan (1) Bacteremia: Status: Acute Plan d3 73yo F with COPD, HCV, hx IDU, hx MRSA abscesses, hx Cdiff, hx E coli colitis, hx osteomyelitis of humerus/clavicle/scapula with MSSA bacteremia [place] [facility] [place] anemia recently admitted here 08/03/23 for anemia left AMA 08/14/23 despite fever concerning for infection found to have MRSA bacteremia and called back to hospital and re-admitted MRSA bacteremia - vancomycin d3, BCx from 08/14 and 08/15 positive, repeat on 08/18, TTE: - The left ventricular systolic function is normal. The calculated ejection fraction is 66% by biplane method. - There is moderate calcification of the aortic valve. - There is mild mitral annular calcification. - Mild pulmonary hypertension is present. - The tricuspid valve was not well visualized. Cannot exclude vegetation. - ID consult pending. May need NIC if fails to clear bacteremia - CT neck to exclude spinal involvement acute/chronic anemia - transfused 2u pRBCs last admission; scope revealed non-bleeding stomach ulcers and infectious colitis - transfused 1u pRBCs 08/16, recheck CBC pending hypoMg - repleted, recheck pending wounds - Wound Care consulted last admission. Recommended: Coccyx wound, unstageable > cleanse with normal saline, apply triad to periwound, lightly pack coccyx with Durafiber Ag cover with sacral foam dressing, daily Right arm AC, abrasion > cleanse with normal saline, apply skin prep to periwound, lightly packed with Durafiber Ag, cover with foam dressing, daily Left forearm> cleanse with normal saline, or cover scabbed area with hydrocolloid dressing, change every 3 days In addition, frequent turning/repositioning every 2 hours to offload bony prominences along with air loss mattress. COPD - continue Flovent + Spiriva, prn albuterol GERD - continue PPI mood disorder - clonazepam + zolpidem VTE ppx - SCDs given severe anemia and recent GI bleed dispo - TBD In my clinical judgment, the patient requires continued inpatient hospitalization for the following reasons: IV ABX, bacteremia Total time managing care of this patient today: 40 minutes. Quality Stroke Does the patient have a stroke diagnosis?: No VTE Prior VTE?: No VTE Risk Level:: Medical - moderate - high VTE Device Contraindication: Treatment Not Indicated VTE Drug Contraindication: N/A - Med Ordered
--- NOTE | 2023-08-17 10:43 | HE.PHANOTE ---
re vanco change to dapto pt hard stick and refusing all labs. change to dapto per dr cortez.
--- NOTE | 2023-08-17 11:07 | MHC.CLN ---
F/U PT WITH INCREASED NUTRITION RISK R/T PRESSURE INJURY. DIET REGULAR-APPROPRIATE. ENSURE MAX PROTEIN BID TO PROMOTE WOUND HEALING. SUPPLEMENT PROVIDES 300 KCALS, 60 G PROTEIN. PO INTAKE 50-100%. MONITOR PO INTAKE AND SUPPLEMENT ACCEPTANCE.
[2023-08-17 12:56] VITALS: PULSE 99
[2023-08-17 12:59] LABS: Amphetamine Screen Urine Not Detected (Not Detect); Barbiturates, Urine Not Detected (Not Detect); Benzodiazepines Screen Urine Not Detected (Not Detect); Cannabinoid Screen Urine Not Detected (Not Detect); Cocaine Screen Urine Not Detected (Not Detect); Fentanyl, urine POSITIVE (Not Detect); Opiate Screen Urine POSITIVE (Not Detect); Phencyclidine Screen Urine Not Detected (Not Detect)
[2023-08-17] MEDS: iohexoL 350 MG/ML 75 ML INFUS..BTL 85 ML IV (14:14)
--- NOTE | 2023-08-17 15:28 | PC.NURSE ---
0930- phlebotomy unable to complete blood draw. Patient now refusing. Dr. Jeffries made aware, no new orders.
[2023-08-17 15:32] VITALS: BP 127/60; PULSE 98; RESP 18; TEMP 36.1; O2SAT 97
--- NOTE | 2023-08-17 15:35 | PC.NURSE ---
Left Leg has greater Edema than right, MD notified, Swelling apparent, +PP, able to feel sensation.
--- NOTE | 2023-08-17 18:58 | PC.NURSE ---
MD Jeffries notified US happening now, most likely clot per MD Brandon aware, awaiting final read, Night nurse aware. Will monitor for new orders.
[2023-08-17 19:21] VITALS: BP 111/57; PULSE 117; RESP 28; TEMP 36.4; O2SAT 94
[2023-08-17] MEDS: Enoxaparin Sodium 60 MG/0.6 ML SYRINGE SUBCUT (19:39)
[2023-08-17] MEDS: Montelukast Sodium 10 MG TABLET PO (19:40)
[2023-08-17 19:50] LABS: Appearance Urine Cloudy; Color Urine Yellow; Glucose Urine UA Negative (Negative); Leukocyte Esterase Urine Large (3+) (Negative); Nitrite Urine Positive (Negative); PH 6.5 (5.0-9.0); UMIC TRIGGER UACC YES; Urine Blood Negative (Negative); Urine Ketones Negative (Negative); Urine Protein 30 (1+) mg/dL (Neg-Trace)
[2023-08-17] MEDS: traMADoL HCL 50 MG TABLET PO (19:56)
[2023-08-17 20:52] LABS: RBC Urine 0-2 /HPF (0-2); UACC Culture Trigger YES
[2023-08-17 20:53] LABS: Bacteria Urine 1+ (None Seen); Hyaline Casts Urine 0-2 /LPF (0-2)
[2023-08-18] VITALS (7 sets, daily range): BP systolic 99–112; BP diastolic 54–67; PULSE 99–117; RESP 16–24; TEMP 36.2–37.1; O2SAT 93–97
--- NOTE | 2023-08-18 | ECG_ITS ---
Test Reason : qtc intervals Blood Pressure : / mmHG Vent. Rate : 098 BPM Atrial Rate : 098 BPM P-R Int : 102 ms QRS Dur : 080 ms QT Int : 342 ms P-R-T Axes : 072 053 047 degrees QTc Int : 436 ms Sinus rhythm with short AL RSR' or QR pattern in V1 suggests right ventricular conduction delay Abnormal ECG When compared with ECG of 15-AUG-2023 23:09, Premature atrial complexes are no longer Present T wave inversion no longer evident in Inferior leads T wave inversion no longer evident in Anterolateral leads Referred By: Mariusz Jeffries Electronically Signed By:MT LAGUNAS MD
[2023-08-18] MEDS: Morphine Sulfate 2 MG/ML CARTRIDGE IVPUSH ×3 (02:44→20:56)
[2023-08-18] MEDS: traMADoL HCL 50 MG TABLET PO ×2 (04:31→15:57)
[2023-08-18 07:14] LABS: Anion Gap 10 (12-20); Blood Urea Nitrogen 20 mg/dL (9-16); Calcium 7.9 mg/dL (8.4-10.2); Carbon Dioxide 20 mmol/L (22-29); Chloride 104 mmol/L (96-108); Estimated Glomerular Filt Rate 52; Glucose Random 75 mg/dL (60-115); Magnesium 1.7 mg/dL (1.6-2.6); Potassium 4.2 mmol/L (3.3-5.1); Sodium 130 mmol/L (135-145)
[2023-08-18] MEDS: 0.9 % Sodium Chloride Flush 3 ML SYRINGE IVFLUSH (07:57)
[2023-08-18] MEDS: 0.9 % Sodium Chloride 1,000 ML 125 ML IVCONT (07:57)
[2023-08-18] MEDS: Cholecalciferol (Vitamin D3) 25 MCG TABLET PO (07:57)
[2023-08-18] MEDS: Ferrous Sulfate 324 MG TABLET.DR PO ×2 (07:57→20:51)
[2023-08-18] MEDS: Enoxaparin Sodium 60 MG/0.6 ML SYRINGE SUBCUT ×2 (07:57→18:18)
[2023-08-18] MEDS: Omeprazole 20 MG CAPSULE.DR PO ×2 (07:58→20:51)
[2023-08-18] MEDS: Lidocaine 4 % Patch ADH..PATCH 1 PATCH TRANSDERMA (07:58)
[2023-08-18 08:08] LABS: C Reactive Protein 30.18 mg/dL (< or = 0.50)
[2023-08-18 08:50] LABS: Hematocrit 24.6 % (37.0-47.0); Hemoglobin 8.1 g/dl (12.0-16.0); Mean Corpuscular HGB Conc 32.9 g/dl (31.0-35.0); Mean Corpuscular Hemoglobin 30.2 pg (27.0-33.0); Mean Corpuscular Volume 91.8 fL (80.0-98.0); Mean Platelet Volume 10.1 fL (9.4-12.3); Platelet Count 130 X10*3/uL (160-400); Red Blood Count 2.68 X10*6/uL (4.20-5.50); Red Cell Distribution Width 16.4 % (11.0-16.0); White Blood Count 8.3 X10*3/uL (4.8-10.8)
[2023-08-18] MEDS: Albuterol Sulfate (0.083%) 2.5 MG/3 ML VIAL.NEB INHALE (08:51)
[2023-08-18] MEDS: Tiotropium Bromide 2.5 mcg 1 PUFF/2.5 MCG MIST.INHAL 2 PUFF INHALE (08:51)
[2023-08-18] MEDS: Fluticasone Propionate 250 MCG BLST.W.DEV 1 PUFF INHALE ×2 (08:51→21:49)
--- NOTE | 2023-08-18 09:50 | P.PNIM_ITS ---
Subjective Subjective Date of Service: 08/18/23 Interval History: c/o L > R scapula pain L>R leg swelling, found to have extensive occlusive DVT afebrile Review of Systems Review of Systems: Yes all other systems are reviewed and are negative Physical Exam 2 Vital Signs: Vital Signs: Last Vital Signs Temp 97.1 F 08/18/23 07:44 Pulse 117 H 08/18/23 08:55 Resp 20 08/18/23 08:55 BP 99/54 L 08/18/23 07:44 Pulse Ox 96 08/18/23 07:44 O2 Del Method Room Air 08/18/23 07:44 BMI result Body Mass Index 21.9 Gen: chronically ill, pale HEENT: sclera anicteric, moist mucus membranes, R eye blind Neck: supple Lungs: clear to auscultation bilaterally Heart: regular rate and rhythm, no murmurs Abd: soft, non-tender, non-distended Ext: 2+ LLE edema, 1+ RLE edema MSK: tenderness of L scapula + humerus Skin: warm/well-perfused, extensive ecchymoses, coccygeal pressure wound unstageable Neuro: alert and oriented x3, no focal findings Psych: appropriate affect Objective Data Active Medications Acetaminophen (Acetaminophen 325 Mg Tablet) 650 mg PO Q6H PRN PRN Reason: Pain, Mild (Pain Scale 1-3) Last Admin: 08/16/23 22:02 Dose: 650 mg Documented By: DARYL Albuterol Sulfate (Albuterol Sulfate (0.083%) 2.5 Mg/3 Ml Vial.Neb) 2.5 mg INHALE Q4H PRN PRN Reason: Shortness Of Breath Or Wheezing Last Admin: 08/18/23 08:51 Dose: 2.5 mg Documented By: ARMANI Albuterol Sulfate (Albuterol Sulfate 90 Mcg 8 Gm Inhaler) 2 puff INHALE Q4H PRN PRN Reason: Shortness Of Breath Or Wheezing Clonazepam (Clonazepam 1 Mg Tablet) 1 mg PO BEDTIME PRN PRN Reason: Anxiety Last Admin: 08/17/23 19:40 Dose: 1 mg Documented By: DOMO Enoxaparin Sodium (Enoxaparin Sodium 60 Mg/0.6 Ml Syringe) 60 mg 1 mg/kg (60 mg) SUBCUT Q12H [facility] Last Admin: 08/18/23 07:57 Dose: 60 mg Documented By: HENRIK Ferrous Sulfate (Ferrous Sulfate 324 Mg Tablet.) 324 mg PO BID [facility] Last Admin: 08/18/23 07:57 Dose: 324 mg Documented By: HENRIK Fluticasone Propionate (Fluticasone Propionate 250 Mcg Blst.W.Dev) 1 puff INHALE RBID [facility] Last Admin: 08/18/23 08:51 Dose: 1 puff Documented By: ARMANI Daptomycin 448 mg/ Sodium (Chloride) 58.96 mls @ 100 mls/hr IV Q24H [facility] Last Infusion: 08/17/23 13:04 Dose: Infused Documented By: MIL Sodium Chloride (Ns) 1,000 mls @ 125 mls/hr IVCONT .Q8H [facility] Stop: 08/18/23 15:44 Last Admin: 08/18/23 07:57 Dose: 125 mls/hr Documented By: HENRIK Lidocaine (Lidocaine 4 % Patch Adh..Patch) 1 patch TRANSDERMA DAILY [facility]; Protocol Last Admin: 08/18/23 07:58 Dose: 1 patch Documented By: HENRIK Melatonin (Melatonin 3 Mg Tablet) 6 mg PO BEDTIME PRN PRN Reason: Insomnia Montelukast Sodium (Montelukast Sodium 10 Mg Tablet) 10 mg PO BEDTIME [facility] Last Admin: 08/17/23 19:40 Dose: 10 mg Documented By: DOMO Morphine Sulfate (Morphine Sulfate 2 Mg/Ml Cartridge) 2 mg IVPUSH Q4H PRN; Protocol PRN Reason: severe pain Last Admin: 08/18/23 02:44 Dose: 2 mg Documented By: DOMO Omeprazole (Omeprazole 20 Mg Capsule.) 20 mg PO BID [facility] Last Admin: 08/18/23 07:58 Dose: 20 mg Documented By: HENRIK Ondansetron HCl (Ondansetron Hcl 4 Mg/2 Ml Vial) 4 mg IVPUSH Q8H PRN PRN Reason: Nausea and Vomiting Sodium Chloride (0.9 % Sodium Chloride Flush 3 Ml Syringe) 3 ml IVFLUSH QSHIFT [facility] Last Admin: 08/18/23 07:57 Dose: 3 ml Documented By: HENRIK Tiotropium [place] (Tiotropium [place] 2.5 Mcg 1 Puff/2.5 Mcg Mist.Inhal) 2 puff INHALE RDAILY [facility] Last Admin: 08/18/23 08:51 Dose: 2 puff Documented By: ARMANI Tramadol HCl (Tramadol Hcl 50 Mg Tablet) 50 mg PO Q6H PRN PRN Reason: Pain, Severe (Pain Scale 7-10) Last Admin: 08/18/23 04:31 Dose: 50 mg Documented By: DOMO Vitamin D (Cholecalciferol (Vitamin D3) 25 Mcg Tablet) 25 mcg PO DAILY [facility] Last Admin: 08/18/23 07:57 Dose: 25 mcg Documented By: HENRIK Zolpidem Tartrate (Zolpidem Tartrate 5 Mg Tablet) 5 mg PO BEDTIME PRN PRN Reason: Insomnia Labs 08/18/23 08:32 08/18/23 06:30 Labs: Laboratory Results - last 24 hr 08/17/23 08/18/23 08/18/23 12:40 06:30 08:32 MCV 91.8 MCH 30.2 MCHC 32.9 RDW 16.4 H Plt Count 130 L MPV 10.1 Absolute Nucleated RBC 0.000 Nucleated RBC % (auto) 0.0 Anion Gap 10 L Estim Creat Clear Calc 41.0 Estimated GFR 52 Random Glucose 75 Calcium 7.9 L D Magnesium 1.7 Total Creatine Kinase 18 L C-Reactive Protein 30.18 H Urine Color Yellow Urine Appearance Cloudy Urine pH 6.5 Ur Specific [place] 1.020 Urine Protein 30 (1+) H Urine Glucose (UA) Negative Urine Ketones Negative Urine Blood Negative Urine Nitrite Positive H Ur Leukocyte Esterase Large (3+) H Urine RBC 0-2 Urine WBC 11-20 H Ur Squamous Epith Cells 3-5 Urine Bacteria 1+ Hyaline Casts 0-2 Urine Opiates Screen POSITIVE H Urine Fentanyl Screen POSITIVE H Ur Barbiturates Screen Not Detected Ur Phencyclidine Scrn Not Detected Ur Amphetamines Screen Not Detected U Benzodiazepines Scrn Not Detected Urine Cocaine Screen Not Detected U Marijuana (THC) Screen Not Detected Microbiology Microbiology Results: Microbiology 08/15/23 21:30 Blood Culture - Final Blood - Venous Methicillin Res Staph Aureus 08/15/23 21:30 Blood Culture - Final Blood - Venous Methicillin Res Staph Aureus Assessment and Plan (1) Bacteremia: Status: Acute Plan d4 73yo F with COPD, HCV, hx IDU, hx MRSA abscesses, hx Cdiff, hx E coli colitis, hx osteomyelitis of humerus/clavicle/scapula with MSSA bacteremia and treated at [facility] [place], chronic anemia recently admitted here 08/03/23 for anemia left AMA 08/14/23 despite fever concerning for infection found to have MRSA bacteremia and called back to hospital and re-admitted also found to have bilateral occlusive DVTs occulsive DVTs - started therapeutic enoxaparin 1 mg/kg 08/17. consult Vasc Surg though doubt intervention could be done in the face of uncontrolled bacteremia MRSA bacteremia - vanco 08/15-08/17, dapto 08/17- [changed due to difficult phlebotomy] - TTE 08/16: - The left ventricular systolic function is normal. The calculated ejection fraction is 66% by biplane method. - There is moderate calcification of the aortic valve. - There is mild mitral annular calcification. - Mild pulmonary hypertension is present. - The tricuspid valve was not well visualized. Cannot exclude vegetation. - ID consult pending. May need NIC if fails to clear bacteremia; follow repeat BCx from 08/18. Once clear, place PICC line. - check scapula + humerus plain films. may also need CT T-spine tomorrow [contrast break today] acute/chronic anemia - transfused 2u pRBCs last admission; scope revealed non-bleeding stomach ulcers and infectious colitis - transfused 1u pRBCs 08/16, recheck CBC appropriately responded hypoNa - likely hypovolemic, will give NS and recheck lytes in AM hypoMg - repleted wounds - Wound Care consulted last admission. Recommended: Coccyx wound, unstageable > cleanse with normal saline, apply triad to periwound, lightly pack coccyx with Durafiber Ag cover with sacral foam dressing, daily Right arm AC, abrasion > cleanse with normal saline, apply skin prep to periwound, lightly packed with Durafiber Ag, cover with foam dressing, daily Left forearm> cleanse with normal saline, or cover scabbed area with hydrocolloid dressing, change every 3 days In addition, frequent turning/repositioning every 2 hours to offload bony prominences along with air loss mattress. COPD - continue Flovent + Spiriva, prn albuterol GERD - continue PPI mood disorder - clonazepam + zolpidem VTE ppx - LMWH dispo - will need STR In my clinical judgment, the patient requires continued inpatient hospitalization for the following reasons: IV ABX, bacteremia Total time managing care of this patient today: 50 minutes. Quality Stroke Does the patient have a stroke diagnosis?: No VTE Prior VTE?: No VTE Risk Level:: Medical - moderate - high VTE Device Contraindication: Treatment Not Indicated VTE Drug Contraindication: N/A - Med Ordered
--- NOTE | 2023-08-18 13:19 | MHC.RECOVRN ---
RN met with patient in room 383-1 for Addiction Medicine Consult. Patient seated upright in bed, trying to sip soda. She appears weak/frail. Denies any symptoms of withdrawal. Her only complaint at the moment is pain in her abd and back. Patient has PRN pain med, however hospitalist wanted her to receive fluids before administering d/t hypotension concerns. Patient adamantly denies any recent substance use. She reports she she has abstained from any substance use since 2000. She reports that she has a sponsor and sponsors others, goes to meetings to support other people in recovery. She reports she used to us Heroin nasally and IV. She reports she has never used MAT. RN asked about her + toxicology results, patient states they are positive d/t her getting pain medication during a previous hospitalization. Patient states I don't lie to my doctors. I don't lie. That would just be stupid to do. I haven't touched anything since I went off it cold turkey in 2000. Discussed with Ciara Zapata APRN.
[2023-08-18] MEDS: Montelukast Sodium 10 MG TABLET PO (20:51)
[2023-08-18] MEDS: clonazePAM 1 MG TABLET PO (20:51)
--- NOTE | 2023-08-18 23:29 | PC.NURSE ---
Lab called for a positive blood culture done 08/18 with gram positive Cocci in cluster 1 out of 2, Dr. Hernández was informed.
[2023-08-19] VITALS (7 sets, daily range): BP systolic 102–123; BP diastolic 56–63; PULSE 91–121; RESP 16–19; TEMP 36.2–36.7; O2SAT 93–97
[2023-08-19] MEDS: traMADoL HCL 50 MG TABLET PO (04:26)
[2023-08-19] MEDS: Enoxaparin Sodium 60 MG/0.6 ML SYRINGE SUBCUT ×2 (06:15→18:17)
[2023-08-19] MEDS: Morphine Sulfate 2 MG/ML CARTRIDGE IVPUSH ×4 (06:19→20:17)
[2023-08-19 06:25] LABS: Anion Gap 11 (12-20); Blood Urea Nitrogen 24 mg/dL (9-16); Calcium 8.1 mg/dL (8.4-10.2); Carbon Dioxide 20 mmol/L (22-29); Chloride 103 mmol/L (96-108); Creatinine Clr Calc Pharmacy 41.4; Estimated Glomerular Filt Rate 53; Glucose Random 72 mg/dL (60-115); Potassium 4.1 mmol/L (3.3-5.1); Sodium 130 mmol/L (135-145)
[2023-08-19 06:38] LABS: Hematocrit 27.1 % (37.0-47.0); Hemoglobin 8.8 g/dl (12.0-16.0); Mean Corpuscular HGB Conc 32.5 g/dl (31.0-35.0); Mean Corpuscular Hemoglobin 30.2 pg (27.0-33.0); Mean Corpuscular Volume 93.1 fL (80.0-98.0); Mean Platelet Volume 10.5 fL (9.4-12.3); Platelet Count 178 X10*3/uL (160-400); Red Blood Count 2.91 X10*6/uL (4.20-5.50); White Blood Count 13.3 X10*3/uL (4.8-10.8)
[2023-08-19 07:48] LABS: Erythrocyte Sedimentation Rate 69 MM/HR (0-20)
[2023-08-19] MEDS: Cholecalciferol (Vitamin D3) 25 MCG TABLET PO (08:36)
[2023-08-19] MEDS: 0.9 % Sodium Chloride Flush 3 ML SYRINGE IVFLUSH (08:36)
[2023-08-19] MEDS: Ferrous Sulfate 324 MG TABLET.DR PO ×2 (08:36→20:27)
[2023-08-19] MEDS: 0.9 % Sodium Chloride 1,000 ML 75 ML IVCONT (08:36)
[2023-08-19] MEDS: Omeprazole 20 MG CAPSULE.DR PO ×2 (08:36→20:27)
[2023-08-19] MEDS: Lidocaine 4 % Patch ADH..PATCH 1 PATCH TRANSDERMA (08:36)
--- NOTE | 2023-08-19 10:15 | HO.PM.IMPN ---
Subjective Subjective Date of Service: 08/19/23 Interval History: c/o neck + upper back + arm pain leg swelling L>R very weak no fever still bacteremic Review of Systems Review of Systems: Yes all other systems are reviewed and are negative Physical Exam Vital Signs: Vital Signs: Last Vital Signs Temp 97.8 F 08/19/23 07:17 Pulse 101 H 08/19/23 07:17 Resp 18 08/19/23 07:17 BP 115/63 08/19/23 07:17 Pulse Ox 97 08/19/23 07:17 O2 Del Method Room Air 08/19/23 07:17 BMI result Body Mass Index 21.9 Gen: chronically ill, pale HEENT: sclera anicteric, moist mucus membranes, R eye blind Neck: supple Lungs: clear to auscultation bilaterally Heart: regular rate and rhythm, no murmurs Abd: soft, non-tender, non-distended Ext: 2+ LLE edema, 1+ RLE edema Back: midline thoracic and cervical spine tenderness Skin: warm/well-perfused, extensive ecchymoses, coccygeal pressure wound unstageable Neuro: alert and oriented x3, no focal findings Psych: appropriate affect Objective Data Active Medications Acetaminophen (Acetaminophen 325 Mg Tablet) 650 mg PO Q6H PRN PRN Reason: Pain, Mild (Pain Scale 1-3) Last Admin: 08/16/23 22:02 Dose: 650 mg Documented By: DARYL Albuterol Sulfate (Albuterol Sulfate (0.083%) 2.5 Mg/3 Ml Vial.Neb) 2.5 mg INHALE Q4H PRN PRN Reason: Shortness Of Breath Or Wheezing Last Admin: 08/18/23 08:51 Dose: 2.5 mg Documented By: ARMANI Albuterol Sulfate (Albuterol Sulfate 90 Mcg 8 Gm Inhaler) 2 puff INHALE Q4H PRN PRN Reason: Shortness Of Breath Or Wheezing Clonazepam (Clonazepam 1 Mg Tablet) 1 mg PO BEDTIME PRN PRN Reason: Anxiety Last Admin: 08/18/23 20:51 Dose: 1 mg Documented By: DOMO Enoxaparin Sodium (Enoxaparin Sodium 60 Mg/0.6 Ml Syringe) 60 mg 1 mg/kg (60 mg) SUBCUT Q12H [facility] Last Admin: 08/19/23 06:15 Dose: 60 mg Documented By: DOMO Ferrous Sulfate (Ferrous Sulfate 324 Mg Tablet.) 324 mg PO BID [facility] Last Admin: 08/19/23 08:36 Dose: 324 mg Documented By: ANDERSON Fluticasone Propionate (Fluticasone Propionate 250 Mcg Blst.W.Dev) 1 puff INHALE RBID [facility] Last Admin: 08/19/23 08:19 Dose: Not Given Documented By: BETTY Non-Admin Reason: Patient Refused Daptomycin 448 mg/ Sodium (Chloride) 58.96 mls @ 100 mls/hr IV Q24H [facility] Last Infusion: 08/18/23 13:12 Dose: Infused Documented By: HENRIK Sodium Chloride (Ns) 1,000 mls @ 75 mls/hr IVCONT .[id number] [facility] Last Admin: 08/19/23 08:36 Dose: 75 mls/hr Documented By: ANDERSON Lidocaine (Lidocaine 4 % Patch Adh..Patch) 1 patch TRANSDERMA DAILY [facility]; Protocol Last Admin: 08/19/23 08:36 Dose: 1 patch Documented By: ANDERSON Melatonin (Melatonin 3 Mg Tablet) 6 mg PO BEDTIME PRN PRN Reason: Insomnia Montelukast Sodium (Montelukast Sodium 10 Mg Tablet) 10 mg PO BEDTIME [facility] Last Admin: 08/18/23 20:51 Dose: 10 mg Documented By: DOMO Morphine Sulfate (Morphine Sulfate 2 Mg/Ml Cartridge) 2 mg IVPUSH Q4H PRN; Protocol PRN Reason: severe pain Last Admin: 08/19/23 06:19 Dose: 2 mg Documented By: DOMO Omeprazole (Omeprazole 20 Mg Capsule.) 20 mg PO BID [facility] Last Admin: 08/19/23 08:36 Dose: 20 mg Documented By: ANDERSON Ondansetron HCl (Ondansetron Hcl 4 Mg/2 Ml Vial) 4 mg IVPUSH Q8H PRN PRN Reason: Nausea and Vomiting Sodium Chloride (0.9 % Sodium Chloride Flush 3 Ml Syringe) 3 ml IVFLUSH QSHIFT [facility] Last Admin: 08/19/23 08:36 Dose: 3 ml Documented By: ANDERSON Tiotropium [place] (Tiotropium [place] 2.5 Mcg 1 Puff/2.5 Mcg Mist.Inhal) 2 puff INHALE RDAILY [facility] Last Admin: 08/19/23 08:20 Dose: Not Given Documented By: BETTY Non-Admin Reason: Patient Refused Tramadol HCl (Tramadol Hcl 50 Mg Tablet) 50 mg PO Q6H PRN PRN Reason: Pain, Severe (Pain Scale 7-10) Last Admin: 08/19/23 04:26 Dose: 50 mg Documented By: DOMO Vitamin D (Cholecalciferol (Vitamin D3) 25 Mcg Tablet) 25 mcg PO DAILY [facility] Last Admin: 08/19/23 08:36 Dose: 25 mcg Documented By: ANDERSON Zolpidem Tartrate (Zolpidem Tartrate 5 Mg Tablet) 5 mg PO BEDTIME PRN PRN Reason: Insomnia Labs 08/19/23 05:54 08/19/23 05:54 Labs: Laboratory Results - last 24 hr 08/19/23 05:54 MCV 93.1 MCH 30.2 MCHC 32.5 RDW 16.0 Plt Count 178 D MPV 10.5 Absolute Nucleated RBC 0.000 Nucleated RBC % (auto) 0.0 ESR 69 H Anion Gap 11 L Estim Creat Clear Calc 41.4 Estimated GFR 53 Random Glucose 72 Calcium 8.1 L Microbiology Microbiology Results: Microbiology 08/18/23 06:30 Blood Culture - Preliminary Blood - Venous Prelim: GPC Gram Stain only 08/18/23 06:30 Blood Culture - Preliminary Blood - Venous Prelim: GPC Gram Stain only 08/17/23 20:54 Urine Culture - Preliminary Urine clean catch - Clean Catch Midstream Culture too young to evaluate. Assessment and Plan (1) Bacteremia: Status: Acute Plan d5 73yo F with COPD, HCV, hx IDU, hx MRSA abscesses, hx Cdiff, hx E coli colitis, hx osteomyelitis of humerus/clavicle/scapula with MSSA bacteremia and treated at [facility] [place], chronic anemia recently admitted here 08/03/23 for anemia left AMA 08/14/23 despite fever concerning for infection found to have MRSA bacteremia and called back to hospital and re-admitted also found to have bilateral occlusive DVTs persistently bacteremic occlusive BLE DVTs - started therapeutic enoxaparin 1 mg/kg 08/17. Vasc Surg pending though doubt intervention can be done in the face of uncontrolled bacteremia MRSA bacteremia - edgardoo 08/15-08/17, dapto 08/17- [changed due to difficult phlebotomy] - TTE 08/16: - The left ventricular systolic function is normal. The calculated ejection fraction is 66% by biplane method. - There is moderate calcification of the aortic valve. - There is mild mitral annular calcification. - Mild pulmonary hypertension is present. - The tricuspid valve was not well visualized. Cannot exclude vegetation. - ID consult pending - BCx from 08/14, 08/15, and 08/18 positive. Repeat 08/20. Cardiology consult for NIC given failure to clear; once clear, place PICC line. - CT T-spine to r/o spine involvement acute/chronic anemia - transfused 2u pRBCs last admission; scope revealed non-bleeding stomach ulcers and infectious colitis - transfused 1u pRBCs 08/16, H+H responded appropriately hypoNa - likely hypovolemic, continue NS and recheck lytes in AM hypoMg - repleted wounds - Wound Care consulted last admission: Coccyx wound, unstageable > cleanse with normal saline, apply triad to periwound, lightly pack coccyx with Durafiber Ag cover with sacral foam dressing, daily Right arm AC, abrasion > cleanse with normal saline, apply skin prep to periwound, lightly packed with Durafiber Ag, cover with foam dressing, daily Left forearm> cleanse with normal saline, or cover scabbed area with hydrocolloid dressing, change every 3 days In addition, frequent turning/repositioning every 2 hours to offload bony prominences along with air loss mattress. COPD - continue Flovent + Spiriva, prn albuterol GERD - continue PPI mood disorder - clonazepam + zolpidem VTE ppx - LMWH dispo - will need STR eventually In my clinical judgment, the patient requires continued inpatient hospitalization for the following reasons: IV ABX, bacteremia Total time managing care of this patient today: 45 minutes. Quality Stroke Does the patient have a stroke diagnosis?: No VTE Prior VTE?: No VTE Risk Level:: Medical - moderate - high VTE Device Contraindication: Treatment Not Indicated VTE Drug Contraindication: N/A - Med Ordered
[2023-08-19] MEDS: iohexoL 350 MG/ML 100 ML INFUS..BTL 70 ML IV (11:12)
[2023-08-19] MEDS: Acetaminophen 325 MG TABLET 650 MG PO (19:35)
[2023-08-19] MEDS: Montelukast Sodium 10 MG TABLET PO (20:27)
[2023-08-19] MEDS: Melatonin 3 MG TABLET 6 MG PO (20:27)
[2023-08-19] MEDS: Fluticasone Propionate 250 MCG BLST.W.DEV 1 PUFF INHALE (20:33)
[2023-08-20] VITALS (7 sets, daily range): BP systolic 98–119; BP diastolic 51–67; PULSE 89–94; RESP 16–18; TEMP 36.1–36.5; O2SAT 94–96
[2023-08-20] MEDS: Morphine Sulfate 2 MG/ML CARTRIDGE IVPUSH ×6 (00:18→22:31)
[2023-08-20] MEDS: traMADoL HCL 50 MG TABLET PO ×3 (03:19→20:25)
[2023-08-20 03:30] LABS: HBS Num1 39.27 mIU/mL (0-7.99); HBc Num1 2.46 S/CO (0.00-0.79); HBsAGNum1 0.23 S/CO (0.00-0.99); HIV AB/AG Nonreactive (Nonreactive); HIV Num 1 0.07 S/CO (0.00-0.99); Hepatitis B Surface Antigen Negative (Negative); ~HepC Num1 7.92 S/CO (0.00-0.79); ~Hepatitis B Surface Antibody REACTIVE (Nonreactive); ~Hepatitis C Antibody Reactive (Nonreactive)
[2023-08-20 04:26] LABS: HBc Num2 1.81 S/CO; HBc Num3 1.86 S/CO; Hepatitis B Core Antibody Reactive (Nonreactive)
[2023-08-20] MEDS: 0.9 % Sodium Chloride 1,000 ML 75 ML IVCONT ×2 (04:54→22:33)
[2023-08-20] MEDS: Acetaminophen 325 MG TABLET 650 MG PO (07:12)
[2023-08-20] MEDS: Tiotropium Bromide 2.5 mcg 1 PUFF/2.5 MCG MIST.INHAL 2 PUFF INHALE (08:02)
[2023-08-20] MEDS: Fluticasone Propionate 250 MCG BLST.W.DEV 1 PUFF INHALE ×2 (08:02→20:29)
[2023-08-20] MEDS: Enoxaparin Sodium 60 MG/0.6 ML SYRINGE SUBCUT ×2 (08:59→18:20)
[2023-08-20] MEDS: Lidocaine 4 % Patch ADH..PATCH 1 PATCH TRANSDERMA (09:01)
[2023-08-20] MEDS: Omeprazole 20 MG CAPSULE.DR PO ×2 (09:03→20:26)
[2023-08-20] MEDS: Cholecalciferol (Vitamin D3) 25 MCG TABLET PO (09:03)
[2023-08-20] MEDS: Ferrous Sulfate 324 MG TABLET.DR PO ×2 (09:03→20:26)
--- NOTE | 2023-08-20 11:21 | PM.CNGS ---
History of Present Illness Consult details Consult date: 08/20/23 Reason for consult: other (DVT) Narrative: Very complex 73-year-old female with a history of COPD hepatitis-C and IV drug abuser presents for bacteremia. She had osteomyelitis the humerus clavicle and scapula with MSSA and was treated with long-term antibiotics at [facility]. She was brought in for evaluation and treatment. Upon workup she was noted to have significantly swollen lower extremities. She underwent ultrasound testing and was noted to have a DVT. She now presents to us for vascular evaluation. Review of Systems Constitutional: Constitutional: Reports as per HPI ENT: Reports system reviewed and no additional complaints, except as documented Cardiovascular: Cardiovascular: Denies chest pain, Denies chest pain at rest and Denies chest pain with activity Respiratory: Respiratory: Denies chest congestion and Denies cough Gastrointestinal: Gastrointestinal: Reports no additional gastrointestinal complaints Musculoskeletal: Musculoskeletal: Denies abnormal gait Integumentary/Breasts: Skin/Breast: Reports pruritus and Denies wounds Neurologic: Reports system reviewed and no additional complaints, except as documented and Denies abnormal gait Psychiatric: Psychiatric: Denies no additional psychiatric complaints [facility] Past Medical History Medical History Left against medical advice Bacteremia Chronic anemia MRSA cellulitis Asthma Legally blind Social History Social History Household Members: Friend(s) Housing: Homeless Do you presently have visiting nurse or other home services: Yes Unable to assess alcohol history related to: Unknown Alcohol intake: former Patient Tobacco Use Status: Never used Tobacco Smoked in Last 30 Days: No e-Cigarette/Vaping Use: Former Use Second Hand Smoke Exposure: No Use of substances other than those prescribed or required for medical reasons: No Substance Use Type: Former Substance User Currently Displaying Signs/Symptoms of Drug Intoxication Withdrawal: No Other Past Substance Use Problem:: history of use Any prior treatment program specific to substance use: No Have you been hit, kicked, punched, or otherwise hurt by someone within the past year? If so, by whom?: No Do you feel safe in your current relationship?: No Current Relationship Is there a partner from a previous relationship who is making you feel unsafe now?: No Are you made to feel afraid or neglected: No Advance Directives: No Advance Directives on File: No Do you have thoughts of harming others: None Do you have a plan to hurt others: No Plan Recently lost weight without trying: No Eating poorly because of decreased appetite: No Nutrition Risks: No Nutritional Risk Patient : No : No Poor oral hygiene: No service: No Meds Allergies Allergy/AdvReac Type Severity Reaction Status Date / Time cephalexin [From Keflex] Allergy Severe HIVES Verified 08/15/23 19:19 clindamycin [Clindamycin] Allergy Severe HIVES Verified 08/15/23 19:19 doxycycline [Doxycycline] Allergy Severe HIVES Verified 08/15/23 19:19 erythromycin base Allergy Severe HIVES Verified 08/15/23 19:20 [Erythromycin Base] levofloxacin [From Levaquin] Allergy Severe THROAT Verified 08/15/23 19:19 TIGHTENS nitrofurantoin Allergy Severe HIVES Verified 08/15/23 19:19 [From Macrobid] Penicillins Allergy Severe HIVES Verified 08/15/23 19:19 aspirin Allergy Unknown Hives Verified 08/15/23 19:19 linezolid [From ZYVOX] Allergy Unknown UNKNOWN Verified 08/15/23 19:19 Sulfa (Sulfonamide Allergy Unknown HIVES Verified 08/15/23 19:19 Antibiotics) [SULFA (SULFONAMIDE ANTIBIOTICS)] sulfacetamide Allergy Unknown Hives Verified 08/15/23 19:19 Erythromycin Allergy Unknown Hives Uncoded 04/22/23 06:01 seafood/shellfish Allergy Unknown Facial Uncoded 04/22/23 06:01 Swelling Sulfacet-R Allergy Unknown Hives Uncoded 04/22/23 06:01 Active Medications: Current Medications Acetaminophen (Acetaminophen 325 Mg Tablet) 650 mg PO Q6H PRN PRN Reason: Pain, Mild (Pain Scale 1-3) Last Admin: 08/20/23 07:12 Dose: 650 mg Albuterol Sulfate (Albuterol Sulfate (0.083%) 2.5 Mg/3 Ml Vial.Neb) 2.5 mg INHALE Q4H PRN PRN Reason: Shortness Of Breath Or Wheezing Last Admin: 08/18/23 08:51 Dose: 2.5 mg Albuterol Sulfate (Albuterol Sulfate 90 Mcg 8 Gm Inhaler) 2 puff INHALE Q4H PRN PRN Reason: Shortness Of Breath Or Wheezing Clonazepam (Clonazepam 1 Mg Tablet) 1 mg PO BEDTIME PRN PRN Reason: Anxiety Last Admin: 08/18/23 20:51 Dose: 1 mg Enoxaparin Sodium (Enoxaparin Sodium 60 Mg/0.6 Ml Syringe) 60 mg 1 mg/kg (60 mg) SUBCUT Q12H [facility] Last Admin: 08/20/23 08:59 Dose: 60 mg Ferrous Sulfate (Ferrous Sulfate 324 Mg Tablet.) 324 mg PO BID [facility] Last Admin: 08/20/23 09:03 Dose: 324 mg Fluticasone Propionate (Fluticasone Propionate 250 Mcg Blst.W.Dev) 1 puff INHALE RBID [facility] Last Admin: 08/20/23 08:02 Dose: 1 puff Daptomycin 448 mg/ Sodium (Chloride) 58.96 mls @ 100 mls/hr IV Q24H [facility] Last Infusion: 08/19/23 14:08 Dose: Infused Sodium Chloride (Ns) 1,000 mls @ 75 mls/hr IVCONT .[id number] [facility] Last Admin: 08/20/23 04:54 Dose: 75 mls/hr Lidocaine (Lidocaine 4 % Patch Adh..Patch) 1 patch TRANSDERMA DAILY [facility]; Protocol Last Admin: 08/20/23 09:01 Dose: 1 patch Melatonin (Melatonin 3 Mg Tablet) 6 mg PO BEDTIME PRN PRN Reason: Insomnia Last Admin: 08/19/23 20:27 Dose: 6 mg Montelukast Sodium (Montelukast Sodium 10 Mg Tablet) 10 mg PO BEDTIME [facility] Last Admin: 08/19/23 20:27 Dose: 10 mg Morphine Sulfate (Morphine Sulfate 2 Mg/Ml Cartridge) 2 mg IVPUSH Q4H PRN; Protocol PRN Reason: severe pain Last Admin: 08/20/23 08:58 Dose: 2 mg Omeprazole (Omeprazole 20 Mg Capsule.) 20 mg PO BID [facility] Last Admin: 08/20/23 09:03 Dose: 20 mg Ondansetron HCl (Ondansetron Hcl 4 Mg/2 Ml Vial) 4 mg IVPUSH Q8H PRN PRN Reason: Nausea and Vomiting Sodium Chloride (0.9 % Sodium Chloride Flush 3 Ml Syringe) 3 ml IVFLUSH QSHIFT [facility] Last Admin: 08/20/23 08:52 Dose: Not Given Tiotropium [place] (Tiotropium [place] 2.5 Mcg 1 Puff/2.5 Mcg Mist.Inhal) 2 puff INHALE RDAILY [facility] Last Admin: 08/20/23 08:02 Dose: 2 puff Tramadol HCl (Tramadol Hcl 50 Mg Tablet) 50 mg PO Q6H PRN PRN Reason: Pain, Severe (Pain Scale 7-10) Last Admin: 08/20/23 03:19 Dose: 50 mg Vitamin D (Cholecalciferol (Vitamin D3) 25 Mcg Tablet) 25 mcg PO DAILY [facility] Last Admin: 08/20/23 09:03 Dose: 25 mcg Zolpidem Tartrate (Zolpidem Tartrate 5 Mg Tablet) 5 mg PO BEDTIME PRN PRN Reason: Insomnia Home Medications Medication Instructions Recorded Confirmed Last Taken Type albuterol sulfate 2.5 mg/3 mL 2.5 mg inhalation Q4H PRN 08/03/23 08/15/23 Unknown History (0.083 %) solution for nebulization Shortness Of Breath Or Wheezing albuterol sulfate 90 mcg/actuation 2 puff inhalation Q4-6H PRN 08/03/23 08/15/23 Unknown History aerosol inhaler Shortness Of Breath Or Wheezing cholecalciferol (vitamin D3) 25 25 mcg PO DAILY 08/03/23 08/15/23 Unknown History mcg (1,000 unit) tablet clonazepam 1 mg tablet 1 mg PO BEDTIME PRN Anxiety 08/03/23 08/15/23 Unknown History ferrous sulfate 325 mg (65 mg 325 mg PO BID 08/03/23 08/15/23 Unknown History iron) tablet,delayed release fluticasone propionate 220 1 puff inhalation BID 08/03/23 08/15/23 Unknown History mcg/actuation HFA aerosol inhaler (Flovent HFA) montelukast 10 mg tablet 10 mg PO DAILY 08/03/23 08/15/23 Unknown History omeprazole 20 mg capsule,delayed 20 mg PO BID 08/03/23 08/15/23 Unknown History release tiotropium bromide 18 mcg capsule 1 cap inhalation DAILY 08/03/23 08/15/23 Unknown History with inhalation device (Spiriva with HandiHaler) zolpidem 5 mg tablet 5 mg PO BEDTIME PRN Insomnia 08/03/23 08/15/23 Unknown History Physical Exam Vital Signs: Vital Signs: Last Vital Signs Temp 97.1 F 11/20/23 07:28 Pulse 89 08/20/23 08:03 Resp 18 08/20/23 08:03 BP 98/55 L 08/20/23 07:28 Pulse Ox 94 08/20/23 07:28 O2 Del Method Room Air 08/20/23 07:28 BMI result Body Mass Index 21.9 Const: Other: Mostly in bed for over 6 months General: cooperative, healthy appearing and comfortable Orientation/consciousness: oriented to person, oriented to place and oriented to time Neck: Carotids: no bruits Chest: Chest palpation & inspection: normal inspection of the chest and normal palpation of entire chest wall Resp: Effort & Inspection: normal respiratory effort and able to speak in complete sentences Cardio: Rate: regular rate Heart sounds: S1 normal heart sound present and S2 normal heart sound present Peripheral pulses: Peripheral pulses 2+ throughout GI: Inspection: Yes normal to inspection Skin: Other: +2 edema, large rope-like varicosities greater than 4 mm CEAP Classification C4 - skin color changes Ep - Etiology Primary As - superficial veins P - reflux General skin exam: dry skin Neuro: General: oriented to person, oriented to place and oriented to time Extrem: Right lower extremity: full ROM, normal capillary refill and edema Left lower extremity: full ROM, normal capillary refill and edema Psych: Mental Status: mental status grossly normal Results Labs 08/19/23 05:54 08/19/23 05:54 Labs: Abnormal lab results 08/19/23 Range/Units 05:54 Hepatitis C Ab (EIA) Reactive H (Nonreactive) Urine 08/17/23 Range/Units 12:40 Urine Color Yellow Urine Appearance Cloudy Urine pH 6.5 (5.0-9.0) Ur Specific [place] 1.020 (1.005-1.025) Urine Protein 30 (1+) H (Neg-Trace) mg/dL Urine Glucose (UA) Negative (Negative) mg/dL All other labs normal. Imaging Additional studies: Venous duplex dated 08/15/2023 demonstrates occlusive bilateral lower extremity DVT from common femoral down to calf Assessment and Plan (1) DVT (deep venous thrombosis): Qualifiers: DVT location: lower extremity Affected thrombotic vein of extremity: femoral Chronicity: acute Laterality: bilateral Qualified Code(s): I82.413 - Acute embolism and thrombosis of femoral vein, bilateral Status: Acute Plan In short patient has bilateral lower extremity DVTs. The concern here is that she has extensive DVT but is nonambulatory. In addition she has this bacteremia. At the current time I believe a conservative approach of anticoagulation would be in her best interest. This was discussed with the patient and she was in agreement. Continue anticoagulation. We will follow on an as-needed basis. Thank you for allowing us to assist in her care. Procedures Date of Service Date of Service: 08/20/23
--- NOTE | 2023-08-20 11:42 | PM.CNCAR ---
History of Present Illness History of Present Illness Date of Service: 08/20/23 Requesting physician: Mariusz Jeffries Chief complaint: staph bacteremia Narrative: 73-year-old female who we have been asked to assess for endocarditis. She has MRSA bacteremia. She has history of COPD, hypertensive see, previous history of IV drug use, previous MRSA abscesses, history of C diff, history of E coli colitis, history of osteomyelitis of humerus, clavicle and scapula with MSSA bacteremia in June 2023. She was recently admitted and discharged home but her blood cultures were positive for Staph aureus and was brought back. She has an unstageable sacral decubitus ulcer. She is on antibiotics. She also has DVTs diagnosed on this admission. She also complaining of right-sided rib pain. Recent echocardiogram reviewed showing normal LVEF of 66%, moderate calcification aortic valve, mild mitral annular calcification, mild pulmonary hypertension, tricuspid valve not well visualized and cannot exclude vegetation on the tricuspid valve. ECG showed sinus rhythm at 98 beats per minute, PACs no longer present. [facility] Past Medical History Medical History Left against medical advice Bacteremia Chronic anemia MRSA cellulitis Asthma Legally blind Social History Social History Household Members: Friend(s) Housing: Homeless Do you presently have visiting nurse or other home services: Yes Unable to assess alcohol history related to: Unknown Alcohol intake: former Patient Tobacco Use Status: Never used Tobacco Smoked in Last 30 Days: No e-Cigarette/Vaping Use: Former Use Second Hand Smoke Exposure: No Use of substances other than those prescribed or required for medical reasons: No Substance Use Type: Former Substance User Currently Displaying Signs/Symptoms of Drug Intoxication Withdrawal: No Other Past Substance Use Problem:: history of use Any prior treatment program specific to substance use: No Have you been hit, kicked, punched, or otherwise hurt by someone within the past year? If so, by whom?: No Do you feel safe in your current relationship?: No Current Relationship Is there a partner from a previous relationship who is making you feel unsafe now?: No Are you made to feel afraid or neglected: No Advance Directives: No Advance Directives on File: No Do you have thoughts of harming others: None Do you have a plan to hurt others: No Plan Recently lost weight without trying: No Eating poorly because of decreased appetite: No Nutrition Risks: No Nutritional Risk Patient : No : No Poor oral hygiene: No service: No Meds Allergies Allergy/AdvReac Type Severity Reaction Status Date / Time cephalexin [From Keflex] Allergy Severe HIVES Verified 08/15/23 19:19 clindamycin [Clindamycin] Allergy Severe HIVES Verified 08/15/23 19:19 doxycycline [Doxycycline] Allergy Severe HIVES Verified 08/15/23 19:19 erythromycin base Allergy Severe HIVES Verified 08/15/23 19:20 [Erythromycin Base] levofloxacin [From Levaquin] Allergy Severe THROAT Verified 08/15/23 19:19 TIGHTENS nitrofurantoin Allergy Severe HIVES Verified 08/15/23 19:19 [From Macrobid] Penicillins Allergy Severe HIVES Verified 08/15/23 19:19 aspirin Allergy Unknown Hives Verified 08/15/23 19:19 linezolid [From ZYVOX] Allergy Unknown UNKNOWN Verified 08/15/23 19:19 Sulfa (Sulfonamide Allergy Unknown HIVES Verified 08/15/23 19:19 Antibiotics) [SULFA (SULFONAMIDE ANTIBIOTICS)] sulfacetamide Allergy Unknown Hives Verified 08/15/23 19:19 Erythromycin Allergy Unknown Hives Uncoded 04/22/23 06:01 seafood/shellfish Allergy Unknown Facial Uncoded 04/22/23 06:01 Swelling Sulfacet-R Allergy Unknown Hives Uncoded 04/22/23 06:01 Active Medications: Current Medications Acetaminophen (Acetaminophen 325 Mg Tablet) 650 mg PO Q6H PRN PRN Reason: Pain, Mild (Pain Scale 1-3) Last Admin: 08/20/23 07:12 Dose: 650 mg Albuterol Sulfate (Albuterol Sulfate (0.083%) 2.5 Mg/3 Ml Vial.Neb) 2.5 mg INHALE Q4H PRN PRN Reason: Shortness Of Breath Or Wheezing Last Admin: 08/18/23 08:51 Dose: 2.5 mg Albuterol Sulfate (Albuterol Sulfate 90 Mcg 8 Gm Inhaler) 2 puff INHALE Q4H PRN PRN Reason: Shortness Of Breath Or Wheezing Clonazepam (Clonazepam 1 Mg Tablet) 1 mg PO BEDTIME PRN PRN Reason: Anxiety Last Admin: 08/18/23 20:51 Dose: 1 mg Enoxaparin Sodium (Enoxaparin Sodium 60 Mg/0.6 Ml Syringe) 60 mg 1 mg/kg (60 mg) SUBCUT Q12H [facility] Last Admin: 08/20/23 08:59 Dose: 60 mg Ferrous Sulfate (Ferrous Sulfate 324 Mg Tablet.) 324 mg PO BID [facility] Last Admin: 08/20/23 09:03 Dose: 324 mg Fluticasone Propionate (Fluticasone Propionate 250 Mcg Blst.W.Dev) 1 puff INHALE RBID [facility] Last Admin: 08/20/23 08:02 Dose: 1 puff Daptomycin 448 mg/ Sodium (Chloride) 58.96 mls @ 100 mls/hr IV Q24H [facility] Last Admin: 08/20/23 11:30 Dose: 100 mls/hr Sodium Chloride (Ns) 1,000 mls @ 75 mls/hr IVCONT .[id number] [facility] Last Admin: 08/20/23 04:54 Dose: 75 mls/hr Lidocaine (Lidocaine 4 % Patch Adh..Patch) 1 patch TRANSDERMA DAILY [facility]; Protocol Last Admin: 08/20/23 09:01 Dose: 1 patch Melatonin (Melatonin 3 Mg Tablet) 6 mg PO BEDTIME PRN PRN Reason: Insomnia Last Admin: 08/19/23 20:27 Dose: 6 mg Montelukast Sodium (Montelukast Sodium 10 Mg Tablet) 10 mg PO BEDTIME [facility] Last Admin: 08/19/23 20:27 Dose: 10 mg Morphine Sulfate (Morphine Sulfate 2 Mg/Ml Cartridge) 2 mg IVPUSH Q4H PRN; Protocol PRN Reason: severe pain Last Admin: 08/20/23 08:58 Dose: 2 mg Omeprazole (Omeprazole 20 Mg Capsule.) 20 mg PO BID [facility] Last Admin: 08/20/23 09:03 Dose: 20 mg Ondansetron HCl (Ondansetron Hcl 4 Mg/2 Ml Vial) 4 mg IVPUSH Q8H PRN PRN Reason: Nausea and Vomiting Sodium Chloride (0.9 % Sodium Chloride Flush 3 Ml Syringe) 3 ml IVFLUSH QSHIFT [facility] Last Admin: 08/20/23 08:52 Dose: Not Given Tiotropium [place] (Tiotropium [place] 2.5 Mcg 1 Puff/2.5 Mcg Mist.Inhal) 2 puff INHALE RDAILY [facility] Last Admin: 08/20/23 08:02 Dose: 2 puff Tramadol HCl (Tramadol Hcl 50 Mg Tablet) 50 mg PO Q6H PRN PRN Reason: Pain, Severe (Pain Scale 7-10) Last Admin: 08/20/23 11:28 Dose: 50 mg Vitamin D (Cholecalciferol (Vitamin D3) 25 Mcg Tablet) 25 mcg PO DAILY [facility] Last Admin: 08/20/23 09:03 Dose: 25 mcg Zolpidem Tartrate (Zolpidem Tartrate 5 Mg Tablet) 5 mg PO BEDTIME PRN PRN Reason: Insomnia Home Medications Medication Instructions Recorded Confirmed Last Taken Type albuterol sulfate 2.5 mg/3 mL 2.5 mg inhalation Q4H PRN 08/03/23 08/15/23 Unknown History (0.083 %) solution for nebulization Shortness Of Breath Or Wheezing albuterol sulfate 90 mcg/actuation 2 puff inhalation Q4-6H PRN 08/03/23 08/15/23 Unknown History aerosol inhaler Shortness Of Breath Or Wheezing cholecalciferol (vitamin D3) 25 25 mcg PO DAILY 08/03/23 08/15/23 Unknown History mcg (1,000 unit) tablet clonazepam 1 mg tablet 1 mg PO BEDTIME PRN Anxiety 08/03/23 08/15/23 Unknown History ferrous sulfate 325 mg (65 mg 325 mg PO BID 08/03/23 08/15/23 Unknown History iron) tablet,delayed release fluticasone propionate 220 1 puff inhalation BID 08/03/23 08/15/23 Unknown History mcg/actuation HFA aerosol inhaler (Flovent HFA) montelukast 10 mg tablet 10 mg PO DAILY 08/03/23 08/15/23 Unknown History omeprazole 20 mg capsule,delayed 20 mg PO BID 08/03/23 08/15/23 Unknown History release tiotropium bromide 18 mcg capsule 1 cap inhalation DAILY 08/03/23 08/15/23 Unknown History with inhalation device (Spiriva with HandiHaler) zolpidem 5 mg tablet 5 mg PO BEDTIME PRN Insomnia 08/03/23 08/15/23 Unknown History Physical Exam Vital Signs: Vital Signs: Last Vital Signs Temp 97.1 F 08/20/23 07:28 Pulse 89 08/20/23 08:03 Resp 18 08/20/23 08:03 BP 98/55 L 08/20/23 07:28 Pulse Ox 94 08/20/23 07:28 O2 Del Method Room Air 08/20/23 07:28 BMI result Body Mass Index 21.9 GENERAL APPEARANCE: Ill-appearing, blind from right eye and right eyelid is closed. NECK: no carotid bruit, no jugular venous distention. HEART: no murmurs, regular rate and rhythm. LUNGS: clear to auscultation bilaterally. ABDOMEN: soft, nontender. EXTREMITIES: no edema. PERIPHERAL PULSES: equal. NEUROLOGIC: Awake and alert. Following commands. Objective Labs and Meds 08/19/23 05:54 08/19/23 05:54 Lab results: Laboratory Results - last 24 hr 08/19/23 05:54 Hep Bs Antigen Negative Hep Bs Antibody REACTIVE Hep B Core Total Ab Reactive Hep B Core IgM Ab Cancelled Hepatitis C Ab (EIA) Reactive H HIV 1&2 Ab/P24 Ag 4thGn Nonreactive Imaging Radiologist's impression: Impressions Thoracic Spine CT 08/19/23 11:19 IMPRESSION: Effectively, no contrast was utilized for this exam. 1. No evidence of acute fracture or traumatic subluxation of the thoracic spine. 2. No demonstrated suspicious lytic or sclerotic osseous lesions. No demonstrated osseous erosive changes. 3. 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 Most notably, there are moderate neural foraminal stenoses at T9-T10. No demonstrated spinal canal stenosis. 4. Patchy airspace opacities in the right middle lobe suggestive of an infectious/inflammatory process. Assessment and Plan (1) DVT (deep venous thrombosis): Qualifiers: DVT location: lower extremity Affected thrombotic vein of extremity: femoral Chronicity: acute Laterality: bilateral Qualified Code(s): I82.413 - Acute embolism and thrombosis of femoral vein, bilateral Status: Acute (2) Bacteremia: Status: Acute Plan 73-year-old female with multiple comorbidities who presented to us with the after discharge when her blood cultures turn positive for Staph aureus. She has MRSA in her blood. Potential sources are decubitus ulcer and endocarditis can be a possibility too. She had transthoracic echo which did not show any vegetation on the left-sided valves but the tricuspid valve was not well visualized. She appears quite frail and does not appear to be a surgical candidate. I think ID should weigh in. If she can be treated with prolonged antibiotics then that can be a possibility. If on the other hand if ID felt that we consider NIC then we will discuss with anesthesia. Clinically not in heart failure. Overall stable. Thank you for allowing me to participate in the care of your patient. Please feel free to contact me if you have any questions. Procedures Date of Service Date of Service: 08/20/23
--- NOTE | 2023-08-20 11:45 | HO.PM.IMPN ---
Subjective Subjective Date of Service: 08/20/23 Interval History: no fever phlebotomy unable to get blood this AM c/o pain of upper R breast Review of Systems Review of Systems: Yes all other systems are reviewed and are negative Physical Exam Vital Signs: Vital Signs: Last Vital Signs Temp 97.1 F 08/20/23 07:28 Pulse 89 08/20/23 08:03 Resp 18 08/20/23 08:03 BP 98/55 L 08/20/23 07:28 Pulse Ox 94 08/20/23 07:28 O2 Del Method Room Air 08/20/23 07:28 BMI result Body Mass Index 21.9 Gen: chronically ill, pale HEENT: sclera anicteric, moist mucus membranes, R eye blind Neck: supple Breast [with F senior information security consultant in room]: no obvious erythema, fluctuance, or masses; tenderness of anterior rib cage under the R breast Lungs: clear to auscultation bilaterally Heart: regular rate and rhythm, no murmurs Abd: soft, non-tender, non-distended Ext: 2+ LLE edema, 1+ RLE edema Back: midline thoracic and cervical spine tenderness Skin: warm/well-perfused, extensive ecchymoses, coccygeal pressure wound unstageable Neuro: alert and oriented x3, no focal findings Psych: appropriate affect Objective Data Active Medications Acetaminophen (Acetaminophen 325 Mg Tablet) 650 mg PO Q6H PRN PRN Reason: Pain, Mild (Pain Scale 1-3) Last Admin: 08/20/23 07:12 Dose: 650 mg Documented By: HEATHER Albuterol Sulfate (Albuterol Sulfate (0.083%) 2.5 Mg/3 Ml Vial.Neb) 2.5 mg INHALE Q4H PRN PRN Reason: Shortness Of Breath Or Wheezing Last Admin: 08/18/23 08:51 Dose: 2.5 mg Documented By: ARMANI Albuterol Sulfate (Albuterol Sulfate 90 Mcg 8 Gm Inhaler) 2 puff INHALE Q4H PRN PRN Reason: Shortness Of Breath Or Wheezing Clonazepam (Clonazepam 1 Mg Tablet) 1 mg PO BEDTIME PRN PRN Reason: Anxiety Last Admin: 08/18/23 20:51 Dose: 1 mg Documented By: DOMO Enoxaparin Sodium (Enoxaparin Sodium 60 Mg/0.6 Ml Syringe) 60 mg 1 mg/kg (60 mg) SUBCUT Q12H [facility] Last Admin: 08/20/23 08:59 Dose: 60 mg Documented By: HEATHER Ferrous Sulfate (Ferrous Sulfate 324 Mg Tablet.) 324 mg PO BID [facility] Last Admin: 08/20/23 09:03 Dose: 324 mg Documented By: HEATHER Fluticasone Propionate (Fluticasone Propionate 250 Mcg Blst.W.Dev) 1 puff INHALE RBID [facility] Last Admin: 08/20/23 08:02 Dose: 1 puff Documented By: WILFRID Daptomycin 448 mg/ Sodium (Chloride) 58.96 mls @ 100 mls/hr IV Q24H [facility] Last Admin: 08/20/23 11:30 Dose: 100 mls/hr Documented By: HEATHER Sodium Chloride (Ns) 1,000 mls @ 75 mls/hr IVCONT .[id number] [facility] Last Admin: 08/20/23 04:54 Dose: 75 mls/hr Documented By: ANTONY Lidocaine (Lidocaine 4 % Patch Adh..Patch) 1 patch TRANSDERMA DAILY [facility]; Protocol Last Admin: 08/20/23 09:01 Dose: 1 patch Documented By: HEATHER Melatonin (Melatonin 3 Mg Tablet) 6 mg PO BEDTIME PRN PRN Reason: Insomnia Last Admin: 08/19/23 20:27 Dose: 6 mg Documented By: ANTONY Montelukast Sodium (Montelukast Sodium 10 Mg Tablet) 10 mg PO BEDTIME [facility] Last Admin: 08/19/23 20:27 Dose: 10 mg Documented By: ANTONY Morphine Sulfate (Morphine Sulfate 2 Mg/Ml Cartridge) 2 mg IVPUSH Q4H PRN; Protocol PRN Reason: severe pain Last Admin: 08/20/23 08:58 Dose: 2 mg Documented By: HEATHER Omeprazole (Omeprazole 20 Mg Capsule.) 20 mg PO BID [facility] Last Admin: 08/20/23 09:03 Dose: 20 mg Documented By: HEATHER Ondansetron HCl (Ondansetron Hcl 4 Mg/2 Ml Vial) 4 mg IVPUSH Q8H PRN PRN Reason: Nausea and Vomiting Sodium Chloride (0.9 % Sodium Chloride Flush 3 Ml Syringe) 3 ml IVFLUSH QSHIFT [facility] Last Admin: 08/20/23 08:52 Dose: Not Given Documented By: HEATHER Non-Admin Reason: IV Running Tiotropium [place] (Tiotropium [place] 2.5 Mcg 1 Puff/2.5 Mcg Mist.Inhal) 2 puff INHALE RDAILY [facility] Last Admin: 08/20/23 08:02 Dose: 2 puff Documented By: WILFRID Tramadol HCl (Tramadol Hcl 50 Mg Tablet) 50 mg PO Q6H PRN PRN Reason: Pain, Severe (Pain Scale 7-10) Last Admin: 08/20/23 11:28 Dose: 50 mg Documented By: HEATHER Vitamin D (Cholecalciferol (Vitamin D3) 25 Mcg Tablet) 25 mcg PO DAILY [facility] Last Admin: 08/20/23 09:03 Dose: 25 mcg Documented By: HEATHER Zolpidem Tartrate (Zolpidem Tartrate 5 Mg Tablet) 5 mg PO BEDTIME PRN PRN Reason: Insomnia Labs 08/19/23 05:54 08/19/23 05:54 Labs: Laboratory Results - last 24 hr 08/19/23 05:54 Hep Bs Antigen Negative Hep Bs Antibody REACTIVE Hep B Core Total Ab Reactive Hep B Core IgM Ab Cancelled Hepatitis C Ab (EIA) Reactive H HIV 1&2 Ab/P24 Ag 4thGn Nonreactive Impressions Thoracic Spine CT 08/19/23 11:19 IMPRESSION: Effectively, no contrast was utilized for this exam. 1. No evidence of acute fracture or traumatic subluxation of the thoracic spine. 2. No demonstrated suspicious lytic or sclerotic osseous lesions. No demonstrated osseous erosive changes. 3. 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 Most notably, there are moderate neural foraminal stenoses at T9-T10. No demonstrated spinal canal stenosis. 4. Patchy airspace opacities in the right middle lobe suggestive of an infectious/inflammatory process. Microbiology Microbiology Results: Microbiology 08/18/23 06:30 Blood Culture - Final Blood - Venous Methicillin Res Staph Aureus 08/18/23 06:30 Blood Culture - Final Blood - Venous Methicillin Res Staph Aureus 08/17/23 20:54 Urine Culture - Final Urine clean catch - Clean Catch Midstream Assessment and Plan (1) Bacteremia: Status: Acute Plan d6 73yo F with COPD, HCV, hx IDU, hx MRSA abscesses, hx Cdiff, hx E coli colitis, hx osteomyelitis of humerus/clavicle/scapula with MSSA bacteremia and treated at [facility], chronic anemia recently admitted here 08/03/23 for anemia left AMA 08/14/23 despite fever concerning for infection found to have MRSA bacteremia and called back to hospital and re-admitted also found to have bilateral occlusive DVTs persistently bacteremic occlusive BLE DVTs - started therapeutic enoxaparin 1 mg/kg 08/17. Vasc Surg consult, not a candidate for endovascular intervention given uncontrolled infection MRSA bacteremia - vanco 08/15-08/17, dapto 08/17- [changed due to difficult phlebotomy- couldn't monitor troughs] - TTE 08/16: - The left ventricular systolic function is normal. The calculated ejection fraction is 66% by biplane method. - There is moderate calcification of the aortic valve. - There is mild mitral annular calcification. - Mild pulmonary hypertension is present. - The tricuspid valve was not well visualized. Cannot exclude vegetation. - ID consult pending - BCx from 08/14, 08/15, and 08/18 positive. Repeat today; phlebotomy re-attempt pending. Once clear, will need a PICC line for 6+ wk of IV ABX. - Discussed with Cardiology re NIC. Not sure if it would be beneficial as she would not be a surgical valve replacement candidate. She is not in overt CHF or heart block, either. acute/chronic anemia - transfused 2u pRBCs last admission; scope revealed non-bleeding stomach ulcers and infectious colitis - transfused 1u pRBCs 08/16, H+H responded appropriately hypoNa, mild - likely hypovolemic, continue NS; recheck pending hypoMg - repleted wounds - Wound Care consulted last admission: Coccyx wound, unstageable > cleanse with normal saline, apply triad to periwound, lightly pack coccyx with Durafiber Ag cover with sacral foam dressing, daily Right arm AC, abrasion > cleanse with normal saline, apply skin prep to periwound, lightly packed with Durafiber Ag, cover with foam dressing, daily Left forearm> cleanse with normal saline, or cover scabbed area with hydrocolloid dressing, change every 3 days In addition, frequent turning/repositioning every 2 hours to offload bony prominences along with air loss mattress. COPD - continue Flovent + Spiriva, prn albuterol GERD - continue PPI mood disorder - clonazepam + zolpidem hx opioid abuse - met Recovery Team, denies use since 2000, attributes recent +Utox to pain meds received in hospital - HCV Ab+, viral load pending - HBV immune from prior infection - HIV negative VTE ppx - LMWH dispo - will need STR eventually for IV ABX In my clinical judgment, the patient requires continued inpatient hospitalization for the following reasons: IV ABX, bacteremia Total time managing care of this patient today: 45 minutes. Quality Stroke Does the patient have a stroke diagnosis?: No VTE Prior VTE?: No VTE Risk Level:: Medical - moderate - high VTE Device Contraindication: Treatment Not Indicated VTE Drug Contraindication: N/A - Med Ordered
--- NOTE | 2023-08-20 12:28 | MHC.CM.PN ---
EMR REVIEWED AND PER MD ROUNDS, PT NOT MEDICALLY CLEARED FOR DC (BACTEREMIA, OCCULUSIVE DVT'S) PT CONTINUES TO DECLINE SNF PLACEMENT AT DC. CM WILL CONTINUE TO ENCOURAGE THIS PLAN ON DC. CM WILL CONTINUE TO FOLLOW FOR ANY CHANGE IN DC PLAN/NEEDS.
--- NOTE | 2023-08-20 13:31 | MHC.CLN ---
F/U DIET REGULAR-APPROPRIATE. ENSURE MAX PROTEIN BID TO PROMOTE WOUND HEALING. SUPPLEMENT PROVIDES 300 KCALS, 60 G PROTEIN. PATIENT WITH UNSTAGEABLE AREA TO SACRUM. PO INTAKE X 2 DAYS 50-100%. MONITOR PO INTAKE AND SUPPLEMENT ACCEPTANCE.
--- NOTE | 2023-08-20 16:30 | P.PNID_ITS ---
Subjective Subjective Date of Service: 08/20/23 Critical Care Time (minutes): 15 Comment: she still has MRSA bacteremia unknown source Objective Data Labs 08/19/23 05:54 08/19/23 05:54 Labs: Laboratory Results - last 24 hr 08/19/23 05:54 Hep Bs Antigen Negative Hep Bs Antibody REACTIVE Hep B Core Total Ab Reactive Hep B Core IgM Ab Cancelled Hepatitis C Ab (EIA) Reactive H HIV 1&2 Ab/P24 Ag 4thGn Nonreactive Microbiology Microbiology Results: Microbiology 08/18/23 06:30 Blood - Venous Blood Culture - Final Methicillin Res Staph Aureus 08/18/23 06:30 Blood - Venous Blood Culture - Final Methicillin Res Staph Aureus 08/17/23 20:54 Urine clean catch - Clean Catch Midstream Urine Culture - Final 08/15/23 21:30 Blood - Venous Blood Culture - Final Methicillin Res Staph Aureus 08/15/23 21:30 Blood - Venous Blood Culture - Final Methicillin Res Staph Aureus Physical Exam 2 Vital Signs: Vital Signs: Last Vital Signs Temp 97.1 F 08/20/23 15:23 Pulse 91 08/20/23 15:23 Resp 16 08/20/23 15:23 BP 118/60 08/20/23 15:23 Pulse Ox 94 08/20/23 15:23 O2 Del Method Room Air 08/20/23 15:23 BMI result Body Mass Index 21.9 Const: General: cooperative Resp: Effort & Inspection: normal respiratory effort Cardio: Rate: regular rate Rhythm: regular rhythm GI: Inspection: Yes normal to inspection Assessment and Plan Assessment and plan (1) Bacteremia: Problem details: MRSA bacteremia Failure to clear Possible skin source Check tagged WBC scan. Add Kefzol for five days. Not able to do NIC. Continue Daptomycin six weeks first negative blood culture. Status: Acute Time Spent With Patient Time: Total time managing care of this patient today ____ minutes.
[2023-08-20] MEDS: Montelukast Sodium 10 MG TABLET PO (20:26)
[2023-08-21] VITALS (9 sets, daily range): BP systolic 94–122; BP diastolic 51–58; PULSE 86–98; RESP 16–19; TEMP 36.1–36.7; O2SAT 93–100
[2023-08-21] MEDS: Morphine Sulfate 2 MG/ML CARTRIDGE IVPUSH ×2 (02:54→07:48)
[2023-08-21] MEDS: Cholecalciferol (Vitamin D3) 25 MCG TABLET PO (07:47)
[2023-08-21] MEDS: Omeprazole 20 MG CAPSULE.DR PO ×2 (07:47→21:04)
[2023-08-21] MEDS: Enoxaparin Sodium 60 MG/0.6 ML SYRINGE SUBCUT ×2 (07:47→18:02)
[2023-08-21] MEDS: Acetaminophen 325 MG TABLET 650 MG PO ×3 (07:47→22:45)
[2023-08-21] MEDS: Ferrous Sulfate 324 MG TABLET.DR PO ×2 (07:47→21:04)
[2023-08-21] MEDS: Lidocaine 4 % Patch ADH..PATCH 1 PATCH TRANSDERMA (07:47)
[2023-08-21] MEDS: Fluticasone Propionate 250 MCG BLST.W.DEV 1 PUFF INHALE ×2 (08:02→19:37)
[2023-08-21] MEDS: Tiotropium Bromide 2.5 mcg 1 PUFF/2.5 MCG MIST.INHAL 2 PUFF INHALE (08:02)
--- NOTE | 2023-08-21 09:36 | P.PNIM_ITS ---
Subjective Subjective Date of Service: 08/21/23 Interval History: bilateral leg pain Physical Exam 2 Vital Signs: Vital Signs: Last Vital Signs Temp 97.4 F 08/21/23 07:30 Pulse 97 08/21/23 08:03 Resp 18 08/21/23 08:03 BP 110/54 L 08/21/23 07:30 Pulse Ox 96 08/21/23 07:30 O2 Del Method Room Air 08/21/23 07:30 BMI result Body Mass Index 21.9 Const: General: cooperative Resp: Effort & Inspection: normal respiratory effort Cardio: Rate: regular rate Rhythm: regular rhythm GI: Inspection: Yes normal to inspection Objective Data Active Medications Acetaminophen (Acetaminophen 325 Mg Tablet) 650 mg PO Q6H PRN PRN Reason: Pain, Mild (Pain Scale 1-3) Last Admin: 08/21/23 07:47 Dose: 650 mg Documented By: MARYCRUZ Albuterol Sulfate (Albuterol Sulfate (0.083%) 2.5 Mg/3 Ml Vial.Neb) 2.5 mg INHALE Q4H PRN PRN Reason: Shortness Of Breath Or Wheezing Last Admin: 08/18/23 08:51 Dose: 2.5 mg Documented By: ARMANI Albuterol Sulfate (Albuterol Sulfate 90 Mcg 8 Gm Inhaler) 2 puff INHALE Q4H PRN PRN Reason: Shortness Of Breath Or Wheezing Enoxaparin Sodium (Enoxaparin Sodium 60 Mg/0.6 Ml Syringe) 60 mg 1 mg/kg (60 mg) SUBCUT Q12H [facility] Last Admin: 08/21/23 07:47 Dose: 60 mg Documented By: MARYCRUZ Ferrous Sulfate (Ferrous Sulfate 324 Mg Tablet.Dr) 324 mg PO BID [facility] Last Admin: 08/21/23 07:47 Dose: 324 mg Documented By: MARYCRUZ Fluticasone Propionate (Fluticasone Propionate 250 Mcg Blst.W.Dev) 1 puff INHALE RBID [facility] Last Admin: 08/21/23 08:02 Dose: 1 puff Documented By: WILFRID Daptomycin 448 mg/ Sodium (Chloride) 58.96 mls @ 100 mls/hr IV Q24H [facility] Last Infusion: 08/20/23 12:13 Dose: Infused Documented By: HEATHER Sodium Chloride (Ns) 1,000 mls @ 75 mls/hr IVCONT .[id number] [facility] Last Admin: 08/20/23 22:33 Dose: 75 mls/hr Documented By: ANTONY Lidocaine (Lidocaine 4 % Patch Adh..Patch) 1 patch TRANSDERMA DAILY [facility]; Protocol Last Admin: 08/21/23 07:47 Dose: 1 patch Documented By: MARYCRUZ Melatonin (Melatonin 3 Mg Tablet) 6 mg PO BEDTIME PRN PRN Reason: Insomnia Last Admin: 08/19/23 20:27 Dose: 6 mg Documented By: ANTONY Montelukast Sodium (Montelukast Sodium 10 Mg Tablet) 10 mg PO BEDTIME [facility] Last Admin: 08/20/23 20:26 Dose: 10 mg Documented By: ANTONY Morphine Sulfate (Morphine Sulfate 2 Mg/Ml Cartridge) 2 mg IVPUSH Q4H PRN; Protocol PRN Reason: severe pain Last Admin: 08/21/23 07:48 Dose: 2 mg Documented By: MARYCRUZ Omeprazole (Omeprazole 20 Mg Capsule.Dr) 20 mg PO BID [facility] Last Admin: 08/21/23 07:47 Dose: 20 mg Documented By: MARYCRUZ Ondansetron HCl (Ondansetron Hcl 4 Mg/2 Ml Vial) 4 mg IVPUSH Q8H PRN PRN Reason: Nausea and Vomiting Sodium Chloride (0.9 % Sodium Chloride Flush 3 Ml Syringe) 3 ml IVFLUSH QSHIFT [facility] Last Admin: 08/21/23 07:36 Dose: Not Given Documented By: MARYCRUZ Non-Admin Reason: IV Running Tiotropium [place] (Tiotropium [place] 2.5 Mcg 1 Puff/2.5 Mcg Mist.Inhal) 2 puff INHALE RDAILY [facility] Last Admin: 08/21/23 08:02 Dose: 2 puff Documented By: WILFRID Vitamin D (Cholecalciferol (Vitamin D3) 25 Mcg Tablet) 25 mcg PO DAILY [facility] Last Admin: 08/21/23 07:47 Dose: 25 mcg Documented By: MARYCRUZ Labs 08/19/23 05:54 08/19/23 05:54 Microbiology Microbiology Results: Microbiology 08/18/23 06:30 Blood Culture - Final Blood - Venous Methicillin Res Staph Aureus Assessment and Plan (1) Bacteremia: Status: Acute Plan d7 73yo F with COPD, HCV, hx IDU, hx MRSA abscesses, hx Cdiff, hx E coli colitis, hx osteomyelitis of humerus/clavicle/scapula with MSSA bacteremia and treated at [facility] [place], chronic anemia recently admitted here 08/03/23 for anemia left AMA 08/14/23 despite fever concerning for infection found to have MRSA bacteremia and called back to hospital and re-admitted also found to have bilateral occlusive DVTs persistently bacteremic occlusive BLE DVTs started therapeutic enoxaparin 1 mg/kg 08/17. Vasc Surg consult, not a candidate for endovascular intervention given uncontrolled infection MRSA bacteremia vanco 08/15-08/17, dapto 08/17- [changed due to difficult phlebotomy- couldn't monitor troughs] TTE 08/16: - The left ventricular systolic function is normal. The calculated ejection fraction is 66% by biplane method. - There is moderate calcification of the aortic valve. - There is mild mitral annular calcification. - Mild pulmonary hypertension is present. - The tricuspid valve was not well visualized. Cannot exclude vegetation. - ID appreciated - BCx from 08/14, 08/15, and 08/18 positive. Repeat today; phlebotomy re- attempt pending. Once clear, will need a PICC line for 6+ wk of IV ABX. - Discussed with Cardiology re NIC. Not sure if it would be beneficial as she would not be a surgical valve replacement candidate. She is not in overt CHF or heart block, either. hold off on ancef adjuvent as pcn allergy unable to perform WBC scan due to difficulty drawing blood acute/chronic anemia - transfused 2u pRBCs last admission; scope revealed non-bleeding stomach ulcers and infectious colitis - transfused 1u pRBCs 08/16, H+H responded appropriately hypoNa, mild - likely hypovolemic, continue NS; recheck pending hypoMg - repleted wounds - Wound Care consulted last admission: Coccyx wound, unstageable > cleanse with normal saline, apply triad to periwound, lightly pack coccyx with Durafiber Ag cover with sacral foam dressing, daily Right arm AC, abrasion > cleanse with normal saline, apply skin prep to periwound, lightly packed with Durafiber Ag, cover with foam dressing, daily Left forearm> cleanse with normal saline, or cover scabbed area with hydrocolloid dressing, change every 3 days In addition, frequent turning/repositioning every 2 hours to offload bony prominences along with air loss mattress. COPD - continue Flovent + Spiriva, prn albuterol GERD - continue PPI mood disorder - clonazepam + zolpidem hx opioid abuse - met Recovery Team, denies use since 2000, attributes recent +Utox to pain meds received in hospital - HCV Ab+, viral load pending - HBV immune from prior infection - HIV negative VTE ppx on full treatment with LMWH dispo - will need STR eventually for IV ABX reason for continued hospitalization:still bacteremic Total time managing care of this patient today: 45 minutes. Quality Stroke Does the patient have a stroke diagnosis?: No VTE Prior VTE?: No VTE Risk Level:: Medical - moderate - high VTE Device Contraindication: Treatment Not Indicated VTE Drug Contraindication: N/A - Med Ordered
[2023-08-21 10:48] LABS: OBS Int Ctl Valid YES; OBS1 POSITIVE (NEGATIVE)
[2023-08-21] MEDS: oxyCODONE HCl Immed Release 5 MG TABLET PO ×2 (13:14→21:08)
--- NOTE | 2023-08-21 15:03 | HO.WOUND ---
Wound Consult: Initial 73yr old female [place] [facility] [place]15[place]23 22:20- See progress notes and H&P for detailed history. Arrival to bedside patient is agreeable to assessment and photo upload. She reports she has followed in the wound clinic in the past but no recently. See progress notes for details. Coccyx Etiology: Unstageable Pressure Injury - Present on Admission Measurements: see chart for detailed measurements Wound Bed: red moist viable tissue with small areas of adherent moist yellow slough Drainage / Odor: Scant cole yellow drainage - no odor noted Edges: ? Macerated and defined Silvia wound: ? Macerated -moist with blanchable erythema No Induration, No Fluctuance, No Warmth Pain: Pain reported Goals of Treatment: ? Moist wound healing and autolytic debridement 08/07/23 assessment Left forearm Todays assessment resurfaced Left Forearm Etiology: Resurfaced Wound Bed: newly fragile epithelial tissue Drainage / Odor: None Edges: ?Irregular well defined and attached Silvia wound: Intact - significant scarring and tissue abnormalities noted ? No Induration, No Fluctuance, No Erythema, No Warmth Pain: None Goals of Treatment: ? Hydrocolloid or foam dressing to protect new fragile tissue Right AC / Arm site Etiology: Nonhealing wound Measurements: see chart for detailed measurements Wound Bed: Red moist tissue with adherent thin yellow slough Drainage / Odor: Creamy yellow cole drainage observed on wound bed easily removed with cleansing and on the dressing at time of removal. Edges: Epibole and scarring noted Silvia wound: Intact ? No Induration, No Fluctuance, No Erythema, No Warmth Pain: Pain reported Goals of Treatment: ? Moist wound healing and autolytic debridement with Durafiber AG Recommendations: 1. Turn and Reposition every 2 hours and as needed for patient comfort consider use of wedges available in the storeroom. 2. Off Load all bony prominences with use of pillows, wedges and heel boots. 3. Monitor for incontinence and moisture control. 4. Provide adequate and supplemental nutrition. 5. Continue low air loss mattress. 6.Coccyx - Off Load Pressure - Cleanse with normal saline and pat dry. ?Apply Triad to silvia-wound, lightly pack coccyx with Durafiber AG cover with sacral foam dressing. ?Change Daily or as needed for soiling. 7. Right Arm AC - Cleanse with normal saline and pat dry. ?Apply skin prep to silvia-wound, lightly pack with Durafiber AG cover with foam dressing. ?Change Daily. 8. Left Forearm - Cleanse with NS, Pat dry. Cover scabbed area with Hydrocolloid dressing - this will protect the new fragile tissue. Change every 3 days. Re-consult wound care Nurse for wound deterioration or wound changes.
[2023-08-21] MEDS: LORazepam 0.5 MG TABLET PO (17:14)
[2023-08-21] MEDS: Morphine Sulfate 4 MG/ML CARTRIDGE IM (17:30)
--- NOTE | 2023-08-21 18:09 | PC.NURSE ---
MERRICKE US IV found to be infiltrated this morning. ICU [employer] at bedside to attempt another US guided IV; unsuccessful attempt. Patient to IR this afternoon to attempt PICC placement; per IR unable to confirm placement with blood return-- PICC unsuccessful. MD Roberts notified; ER provider contacted to establish access. ER provider at bedside to attempt US guided IV. Provider unwilling to attempt IV placement due to presence of scar tissue on US. MD Roberts notified; will attempt to contact ICU provider for IJ placement. No access at this time. Pt medicated with IM morphine for severe pain.
[2023-08-21] MEDS: Montelukast Sodium 10 MG TABLET PO (21:04)
[2023-08-21] MEDS: Melatonin 3 MG TABLET 6 MG PO (21:08)
[2023-08-22] VITALS (10 sets, daily range): BP systolic 101–125; BP diastolic 50–65; PULSE 75–102; RESP 14–18; TEMP 36–37.4; O2SAT 92–97
--- NOTE | 2023-08-22 00:07 | PC.NURSE ---
per rounding assessment is done. pt c/o pain in legs, back, and throughout the body 07/10, provided Oxycodone 5mg per NOV. pt was fell asleep after meds. hour and half later woke up with pain 07/10 again. given Tylenol per NOV. pt has non-pitting edema at the lower extremities offered sequential boots per ordered but, pt refused and coccyx dressing change offered pt refused to change. she said waiting for the wound care nurse tomorrow. Lung sounds clear, LBM 08/21/23, BS active, lots old scars on micah. arm. will continue to monitor any changes.
[2023-08-22] MEDS: oxyCODONE HCl Immed Release 5 MG TABLET PO ×3 (01:09→14:24)
[2023-08-22] MEDS: Enoxaparin Sodium 60 MG/0.6 ML SYRINGE SUBCUT (06:02)
[2023-08-22 06:36] LABS: Mean Corpuscular HGB Conc 33.7 g/dl (31.0-35.0); Mean Corpuscular Hemoglobin 31.4 pg (27.0-33.0); Mean Corpuscular Volume 93.3 fL (80.0-98.0); PLT CLUMP 1; Red Blood Count 2.23 X10*6/uL (4.20-5.50); Red Cell Distribution Width 16.2 % (11.0-16.0)
[2023-08-22 06:41] LABS: Anion Gap 10 (12-20); Blood Urea Nitrogen 13 mg/dL (9-16); Calcium 7.5 mg/dL (8.4-10.2); Carbon Dioxide 18 mmol/L (22-29); Chloride 109 mmol/L (96-108); Creatinine Clr Calc Pharmacy 66.6; Estimated Glomerular Filt Rate > 60; Glucose Fasting 86 mg/dL (60-99); Potassium 3.7 mmol/L (3.3-5.1); Sodium 133 mmol/L (135-145)
[2023-08-22 06:57] LABS: White Blood Count 15.3 X10*3/uL (4.8-10.8)
[2023-08-22 06:58] LABS: Hematocrit 20.8 % (37.0-47.0)
[2023-08-22] MEDS: Omeprazole 20 MG CAPSULE.DR PO ×2 (08:05→21:45)
[2023-08-22] MEDS: Cholecalciferol (Vitamin D3) 25 MCG TABLET PO (08:05)
[2023-08-22] MEDS: Ferrous Sulfate 324 MG TABLET.DR PO ×2 (08:05→21:45)
[2023-08-22] MEDS: Acetaminophen 325 MG TABLET 650 MG PO (08:05)
[2023-08-22] MEDS: Lidocaine 4 % Patch ADH..PATCH 1 PATCH TRANSDERMA (08:06)
[2023-08-22 08:26] LABS: Platelet Count 150 X10*3/uL (160-400)
[2023-08-22] MEDS: Tiotropium Bromide 2.5 mcg 1 PUFF/2.5 MCG MIST.INHAL 2 PUFF INHALE (08:29)
[2023-08-22] MEDS: Fluticasone Propionate 250 MCG BLST.W.DEV 1 PUFF INHALE ×2 (08:29→19:24)
[2023-08-22] MEDS: HYDROmorphone HCl 2 MG TABLET 1 MG PO ×2 (08:49→23:33)
--- NOTE | 2023-08-22 10:24 | MHC.CLN ---
F/U DIET REGULAR-APPROPRIATE. ENSURE MAX PROTEIN BID TO PROMOTE WOUND HEALING. SUPPLEMENT PROVIDES 300 KCALS, 60 G PROTEIN. PATIENT WITH UNSTAGEABLE AREA TO COCCYX. PO INTAKE VARIABLE, 25-100%. MONITOR PO INTAKE AND SUPPLEMENT ACCEPTANCE.
[2023-08-22] MEDS: LORazepam 2 MG/ML VIAL 1 MG IM (10:34)
--- NOTE | 2023-08-22 10:37 | HO.PM.IMPN ---
Subjective Subjective Date of Service: 08/22/23 Interval History: bilateral leg pain Physical Exam Vital Signs: Vital Signs: Last Vital Signs Temp 96.8 F 08/22/23 07:36 Pulse 92 08/22/23 08:30 Resp 16 08/22/23 08:30 BP 114/65 08/22/23 07:36 Pulse Ox 94 08/22/23 07:36 O2 Del Method Room Air 08/22/23 07:36 BMI result Body Mass Index 21.9 Const: General: cooperative Resp: Effort & Inspection: normal respiratory effort Cardio: Rate: regular rate Rhythm: regular rhythm GI: Inspection: Yes normal to inspection Objective Data Active Medications Acetaminophen (Acetaminophen 325 Mg Tablet) 650 mg PO Q6H PRN PRN Reason: Pain, Mild (Pain Scale 1-3) Last Admin: 08/22/23 08:05 Dose: 650 mg Documented By: SOURAV Albuterol Sulfate (Albuterol Sulfate (0.083%) 2.5 Mg/3 Ml Vial.Neb) 2.5 mg INHALE Q4H PRN PRN Reason: Shortness Of Breath Or Wheezing Last Admin: 08/18/23 08:51 Dose: 2.5 mg Documented By: ARMANI Albuterol Sulfate (Albuterol Sulfate 90 Mcg 8 Gm Inhaler) 2 puff INHALE Q4H PRN PRN Reason: Shortness Of Breath Or Wheezing Enoxaparin Sodium (Enoxaparin Sodium 60 Mg/0.6 Ml Syringe) 60 mg 1 mg/kg (60 mg) SUBCUT Q12H [facility] Last Admin: 08/22/23 06:02 Dose: 60 mg Documented By: ANGELA Ferrous Sulfate (Ferrous Sulfate 324 Mg Tablet.Dr) 324 mg PO BID [facility] Last Admin: 08/22/23 08:05 Dose: 324 mg Documented By: SOURAV Fluticasone Propionate (Fluticasone Propionate 250 Mcg Blst.W.Dev) 1 puff INHALE RBID [facility] Last Admin: 08/22/23 08:29 Dose: 1 puff Documented By: CALLI Hydromorphone HCl (Hydromorphone Hcl 2 Mg Tablet) 1 mg PO Q3H PRN PRN Reason: mod pain Last Admin: 08/22/23 08:49 Dose: 1 mg Documented By: SOURAV Daptomycin 448 mg/ Sodium (Chloride) 58.96 mls @ 100 mls/hr IV Q24H [facility] Last Admin: 08/21/23 13:31 Dose: Not Given Documented By: MARYCRUZ Non-Admin Reason: No Access Sodium Chloride (Ns) 100 mls @ 100 mls/hr IV ONCE ONE Stop: 08/22/23 11:26 Lidocaine (Lidocaine 4 % Patch Adh..Patch) 1 patch TRANSDERMA DAILY [facility]; Protocol Last Admin: 08/22/23 08:06 Dose: 1 patch Documented By: SOURAV Lorazepam (Lorazepam 2 Mg/Ml Vial) 1 mg IM ONCE PRN PRN Reason: preprocedure Melatonin (Melatonin 3 Mg Tablet) 6 mg PO BEDTIME PRN PRN Reason: Insomnia Last Admin: 08/21/23 21:08 Dose: 6 mg Documented By: ANGELA Montelukast Sodium (Montelukast Sodium 10 Mg Tablet) 10 mg PO BEDTIME [facility] Last Admin: 08/21/23 21:04 Dose: 10 mg Documented By: ANGELA Morphine Sulfate (Morphine Sulfate 2 Mg/Ml Cartridge) 2 mg IVPUSH Q4H PRN; Protocol PRN Reason: severe pain Last Admin: 08/21/23 07:48 Dose: 2 mg Documented By: MARYCRUZ Omeprazole (Omeprazole 20 Mg Capsule.Dr) 20 mg PO BID [facility] Last Admin: 08/22/23 08:05 Dose: 20 mg Documented By: SOURAV Ondansetron HCl (Ondansetron Hcl 4 Mg/2 Ml Vial) 4 mg IVPUSH Q8H PRN PRN Reason: Nausea and Vomiting Oxycodone HCl (Oxycodone Hcl Immed Release 5 Mg Tablet) 5 mg PO Q4H PRN PRN Reason: mod pain Last Admin: 08/22/23 06:03 Dose: 5 mg Documented By: ANGELA Sodium Chloride (0.9 % Sodium Chloride Flush 3 Ml Syringe) 3 ml IVFLUSH QSHIFT [facility] Last Admin: 08/22/23 07:17 Dose: Not Given Documented By: ALONDRA Non-Admin Reason: No Access Tiotropium [place] (Tiotropium [place] 2.5 Mcg 1 Puff/2.5 Mcg Mist.Inhal) 2 puff INHALE RDAILY [facility] Last Admin: 08/22/23 08:29 Dose: 2 puff Documented By: CALLI Vitamin D (Cholecalciferol (Vitamin D3) 25 Mcg Tablet) 25 mcg PO DAILY [facility] Last Admin: 08/22/23 08:05 Dose: 25 mcg Documented By: SOURAV Labs 08/22/23 06:08 08/22/23 06:08 Labs: Laboratory Results - last 24 hr 08/21/23 08/22/23 10:35 06:08 MCV 93.3 MCH 31.4 MCHC 33.7 RDW 16.2 H Plt Count 150 L MPV Not Reportable Absolute Nucleated RBC 0.000 Nucleated RBC % (auto) 0.0 Anion Gap 10 L Estim Creat Clear Calc 66.6 Estimated GFR > 60 Fasting Glucose 86 Calcium 7.5 L D Stool Occult Blood POSITIVE Microbiology Microbiology Results: Microbiology 08/21/23 10:39 Blood Culture - Final Blood - Venous 08/21/23 10:39 Blood Culture - Final Blood - Venous 08/21/23 10:35 Blood Culture - Final Blood - Venous 08/21/23 10:35 Blood Culture - Final Blood - Venous Assessment and Plan (1) Bacteremia: Status: Acute Plan d8 73yo F with COPD, HCV, hx IDU, hx MRSA abscesses, hx Cdiff, hx E coli colitis, hx osteomyelitis of humerus/clavicle/scapula with MSSA bacteremia and treated at [facility] [place], chronic anemia recently admitted here 08/03/23 for anemia left AMA 08/14/23 despite fever concerning for infection found to have MRSA bacteremia and called back to hospital and re-admitted also found to have bilateral occlusive DVTs persistently bacteremic occlusive BLE DVTs started therapeutic enoxaparin 1 mg/kg 08/17. Vasc Surg consult, not a candidate for endovascular intervention given uncontrolled infection MRSA bacteremia vanco 08/15-08/17, dapto 08/17- [changed due to difficult phlebotomy- couldn't monitor troughs] TTE 08/16: - The left ventricular systolic function is normal. The calculated ejection fraction is 66% by biplane method. - There is moderate calcification of the aortic valve. - There is mild mitral annular calcification. - Mild pulmonary hypertension is present. - The tricuspid valve was not well visualized. Cannot exclude vegetation. - ID appreciated - BCx from 08/14, 08/15, and 08/18 positive. Repeat today; phlebotomy re-attempt pending. Once clear, will need a PICC line for 6+ wk of IV ABX. - Discussed with Cardiology re NIC. Not sure if it would be beneficial as she would not be a surgical valve replacement candidate. She is not in overt CHF or heart block, either. hold off on ancef adjuvent as pcn allergy unable to perform WBC scan due to difficulty drawing blood now with no access, plan for IR guided access acute/chronic anemia - transfused 2u pRBCs last admission; scope revealed non-bleeding stomach ulcers and infectious colitis - transfused 1u pRBCs 08/16, H+H responded appropriately transfuse 1 unit 08/22 hypoNa, mild hypoMg - repleted wounds - Wound Care consulted last admission: Coccyx wound, unstageable > cleanse with normal saline, apply triad to periwound, lightly pack coccyx with Durafiber Ag cover with sacral foam dressing, daily Right arm AC, abrasion > cleanse with normal saline, apply skin prep to periwound, lightly packed with Durafiber Ag, cover with foam dressing, daily Left forearm> cleanse with normal saline, or cover scabbed area with hydrocolloid dressing, change every 3 days In addition, frequent turning/repositioning every 2 hours to offload bony prominences along with air loss mattress. COPD - continue Flovent + Spiriva, prn albuterol GERD - continue PPI mood disorder - clonazepam + zolpidem hx opioid abuse - met Recovery Team, denies use since 2000, attributes recent +Utox to pain meds received in hospital - HCV Ab+, viral load pending - HBV immune from prior infection - HIV negative VTE ppx on full treatment with LMWH dispo - will need STR eventually for IV ABX reason for continued hospitalization:still bacteremic Total time managing care of this patient today: 45 minutes. Quality Stroke Does the patient have a stroke diagnosis?: No VTE Prior VTE?: No VTE Risk Level:: Medical - moderate - high VTE Device Contraindication: Treatment Not Indicated VTE Drug Contraindication: N/A - Med Ordered
[2023-08-22] MEDS: Morphine Sulfate 2 MG/ML CARTRIDGE IVPUSH ×3 (12:24→21:44)
--- NOTE | 2023-08-22 14:08 | MHC.CM.PN ---
PER MD ROUNDS, PT EXPECTED TO GET HER LINE TODAY AND WILL NEED SNF PLACEMENT REFERRALS ARE OUT, NO BED OFFERS AT THIS TIME
--- NOTE | 2023-08-22 14:50 | HO.RADPN ---
RADIOLOGY Narrative Narrative: Right IJ TLC catheter placed using US and Fluoro. Tip at cavoatrial junction. No immediate complications. Ok for use. Full dictation to follow. Eduardo MANCIA Interventional Radiology
[2023-08-22 18:23] LABS: HCV Log PCR <1.18 NOT DETECTED Log IU/mL (NOT DETECTED); HepC Viral Load <15 NOT DETECTED IU/mL (NOT DETECTED)
[2023-08-22] MEDS: Montelukast Sodium 10 MG TABLET PO (21:45)
[2023-08-22] MEDS: Melatonin 3 MG TABLET 6 MG PO (21:45)
[2023-08-23] VITALS (7 sets, daily range): BP systolic 124–148; BP diastolic 57–76; PULSE 91–109; RESP 14–20; TEMP 36.4–37.3; O2SAT 94–100
[2023-08-23] MEDS: Morphine Sulfate 2 MG/ML CARTRIDGE IVPUSH ×5 (01:37→20:06)
[2023-08-23 07:02] LABS: Hematocrit 25.2 % (37.0-47.0); Hemoglobin 8.4 g/dl (12.0-16.0); Mean Corpuscular HGB Conc 33.3 g/dl (31.0-35.0); Mean Corpuscular Hemoglobin 30.7 pg (27.0-33.0); Mean Platelet Volume 9.6 fL (9.4-12.3); Platelet Count 222 X10*3/uL (160-400); Red Blood Count 2.74 X10*6/uL (4.20-5.50); Red Cell Distribution Width 15.7 % (11.0-16.0); White Blood Count 17.7 X10*3/uL (4.8-10.8)
[2023-08-23 07:14] LABS: Anion Gap 9 (12-20); Blood Urea Nitrogen 15 mg/dL (9-16); Calcium 7.7 mg/dL (8.4-10.2); Carbon Dioxide 21 mmol/L (22-29); Chloride 107 mmol/L (96-108); Creatinine Clr Calc Pharmacy 60.1; Estimated Glomerular Filt Rate > 60; Glucose Fasting 80 mg/dL (60-99); Potassium 3.5 mmol/L (3.3-5.1); Sodium 133 mmol/L (135-145)
[2023-08-23] MEDS: Fluticasone Propionate 250 MCG BLST.W.DEV 1 PUFF INHALE ×2 (08:28→19:59)
[2023-08-23] MEDS: Tiotropium Bromide 2.5 mcg 1 PUFF/2.5 MCG MIST.INHAL 2 PUFF INHALE (08:28)
--- NOTE | 2023-08-23 09:10 | P.PNIM_ITS ---
Subjective Subjective Date of Service: 08/23/23 Interval History: lower back pain Physical Exam 2 Vital Signs: Vital Signs: Last Vital Signs Temp 98.1 F 08/23/23 07:39 Pulse 92 08/23/23 08:37 Resp 20 08/23/23 08:37 BP 129/60 08/23/23 07:39 Pulse Ox 96 08/23/23 07:39 O2 Del Method Room Air 08/23/23 07:39 BMI result Body Mass Index 21.9 Const: General: cooperative Resp: Effort & Inspection: normal respiratory effort Cardio: Rate: regular rate Rhythm: regular rhythm GI: Inspection: Yes normal to inspection Objective Data Active Medications Acetaminophen (Acetaminophen 325 Mg Tablet) 650 mg PO Q6H PRN PRN Reason: Pain, Mild (Pain Scale 1-3) Last Admin: 08/22/23 08:05 Dose: 650 mg Documented By: SOURAV Albuterol Sulfate (Albuterol Sulfate 90 Mcg 8 Gm Inhaler) 2 puff INHALE Q4H PRN PRN Reason: Shortness Of Breath Or Wheezing Enoxaparin Sodium (Enoxaparin Sodium 60 Mg/0.6 Ml Syringe) 60 mg 1 mg/kg (60 mg) SUBCUT Q12H [facility] Last Admin: 08/22/23 06:02 Dose: 60 mg Documented By: ANGELA Ferrous Sulfate (Ferrous Sulfate 324 Mg Tablet.Dr) 324 mg PO BID [facility] Last Admin: 08/22/23 21:45 Dose: 324 mg Documented By: CARL Fluticasone Propionate (Fluticasone Propionate 250 Mcg Blst.W.Dev) 1 puff INHALE RBID [facility] Last Admin: 08/23/23 08:28 Dose: 1 puff Documented By: BRESNE Hydromorphone HCl (Hydromorphone Hcl 2 Mg Tablet) 1 mg PO Q3H PRN PRN Reason: mod pain Last Admin: 08/22/23 23:33 Dose: 1 mg Documented By: CARL Daptomycin 448 mg/ Sodium (Chloride) 58.96 mls @ 100 mls/hr IV Q24H [facility] Last Infusion: 08/22/23 13:22 Dose: Infused Documented By: ALONDRA Lidocaine (Lidocaine 4 % Patch Adh..Patch) 1 patch TRANSDERMA DAILY [facility]; Protocol Last Admin: 08/22/23 08:06 Dose: 1 patch Documented By: SOURAV Lorazepam (Lorazepam 2 Mg/Ml Vial) 1 mg IM ONCE PRN PRN Reason: preprocedure Last Admin: 08/22/23 10:34 Dose: 1 mg Documented By: SOURAV Melatonin (Melatonin 3 Mg Tablet) 6 mg PO BEDTIME PRN PRN Reason: Insomnia Last Admin: 08/22/23 21:45 Dose: 6 mg Documented By: CARL Montelukast Sodium (Montelukast Sodium 10 Mg Tablet) 10 mg PO BEDTIME [facility] Last Admin: 08/22/23 21:45 Dose: 10 mg Documented By: CARL Morphine Sulfate (Morphine Sulfate 2 Mg/Ml Cartridge) 2 mg IVPUSH Q4H PRN; Protocol PRN Reason: severe pain Last Admin: 08/23/23 05:40 Dose: 2 mg Documented By: CARL Omeprazole (Omeprazole 20 Mg Capsule.Dr) 20 mg PO BID [facility] Last Admin: 08/22/23 21:45 Dose: 20 mg Documented By: CARL Ondansetron HCl (Ondansetron Hcl 4 Mg/2 Ml Vial) 4 mg IVPUSH Q8H PRN PRN Reason: Nausea and Vomiting Oxycodone HCl (Oxycodone Hcl Immed Release 5 Mg Tablet) 5 mg PO Q4H PRN PRN Reason: mod pain Last Admin: 08/22/23 14:24 Dose: 5 mg Documented By: SOURAV Sodium Chloride (0.9 % Sodium Chloride Flush 3 Ml Syringe) 3 ml IVFLUSH QSHIFT [facility] Last Admin: 08/22/23 21:51 Dose: Not Given Documented By: CARL Non-Admin Reason: triple flushed with 5ml Tiotropium [place] (Tiotropium [place] 2.5 Mcg 1 Puff/2.5 Mcg Mist.Inhal) 2 puff INHALE RDAILY [facility] Last Admin: 08/23/23 08:28 Dose: 2 puff Documented By: ARANZA Vitamin D (Cholecalciferol (Vitamin D3) 25 Mcg Tablet) 25 mcg PO DAILY [facility] Last Admin: 08/22/23 08:05 Dose: 25 mcg Documented By: SOURAV Labs 08/23/23 06:41 08/23/23 06:41 Labs: Laboratory Results - last 24 hr 08/19/23 08/22/23 08/22/23 05:54 06:08 13:11 MCV MCH MCHC RDW Plt Count MPV Absolute Nucleated RBC Nucleated RBC % (auto) Smear Path Review SEE NOTE Hold Purple Top Anion Gap Estim Creat Clear Calc Estimated GFR Fasting Glucose Calcium Hep C Viral Load <15 NOT DETECTED Hep C Viral Load Log <1.18 NOT DETECTED Blood Type AB Positive Antibody Screen NEGATIVE Crossmatch See Detail 08/23/23 06:41 MCV 92.0 MCH 30.7 MCHC 33.3 RDW 15.7 Plt Count 222 D MPV 9.6 Absolute Nucleated RBC 0.000 Nucleated RBC % (auto) 0.0 Smear Path Review Hold Purple Top SEE NOTE Anion Gap 9 L Estim Creat Clear Calc 60.1 Estimated GFR > 60 Fasting Glucose 80 Calcium 7.7 L Hep C Viral Load Hep C Viral Load Log Blood Type Antibody Screen Crossmatch Microbiology Microbiology Results: Microbiology 08/22/23 06:00 Blood Culture - Final Blood - Venous 08/22/23 06:00 Blood Culture - Final Blood - Venous 08/21/23 10:39 Blood Culture - Final Blood - Venous 08/21/23 10:39 Blood Culture - Final Blood - Venous Assessment and Plan (1) Bacteremia: Status: Acute Plan d9 73yo F with COPD, HCV, hx IDU, hx MRSA abscesses, hx Cdiff, hx E coli colitis, hx osteomyelitis of humerus/clavicle/scapula with MSSA bacteremia and treated at [facility] [place], chronic anemia recently admitted here 08/03/23 for anemia left AMA 08/14/23 despite fever concerning for infection found to have MRSA bacteremia and called back to hospital and re-admitted also found to have bilateral occlusive DVTs persistently bacteremic occlusive BLE DVTs started therapeutic enoxaparin 1 mg/kg 08/17. Vasc Surg consult, not a candidate for endovascular intervention given uncontrolled infection MRSA bacteremia vanco 08/15-08/17, dapto 08/17- [changed due to difficult phlebotomy- couldn't monitor troughs] TTE 08/16: - The left ventricular systolic function is normal. The calculated ejection fraction is 66% by biplane method. - There is moderate calcification of the aortic valve. - There is mild mitral annular calcification. - Mild pulmonary hypertension is present. - The tricuspid valve was not well visualized. Cannot exclude vegetation. - ID appreciated - BCx from 08/14, 08/15, and 08/18 positive. Repeat today; phlebotomy re- attempt pending. Once clear, will need a PICC line for 6+ wk of IV ABX. - Discussed with Cardiology re NIC. Not sure if it would be beneficial as she would not be a surgical valve replacement candidate. She is not in overt CHF or heart block, either. hold off on ancef adjuvent as pcn allergy now with TLC for access acute/chronic anemia - transfused 2u pRBCs last admission; scope revealed non-bleeding stomach ulcers and infectious colitis - transfused 1u pRBCs 08/16, H+H responded appropriately transfuse 1 unit 08/22 hypoNa, mild hypoMg - repleted wounds - Wound Care consulted last admission: Coccyx wound, unstageable > cleanse with normal saline, apply triad to periwound, lightly pack coccyx with Durafiber Ag cover with sacral foam dressing, daily Right arm AC, abrasion > cleanse with normal saline, apply skin prep to periwound, lightly packed with Durafiber Ag, cover with foam dressing, daily Left forearm> cleanse with normal saline, or cover scabbed area with hydrocolloid dressing, change every 3 days In addition, frequent turning/repositioning every 2 hours to offload bony prominences along with air loss mattress. COPD - continue Flovent + Spiriva, prn albuterol GERD - continue PPI mood disorder - clonazepam + zolpidem hx opioid abuse - met Recovery Team, denies use since 2000, attributes recent +Utox to pain meds received in hospital - HCV Ab+ - HBV immune from prior infection - HIV negative VTE ppx on full treatment with LMWH dispo - will need STR eventually for IV ABX reason for continued hospitalization:still bacteremic Total time managing care of this patient today: 45 minutes. Quality Stroke Does the patient have a stroke diagnosis?: No VTE Prior VTE?: No VTE Risk Level:: Medical - moderate - high VTE Device Contraindication: Treatment Not Indicated VTE Drug Contraindication: N/A - Med Ordered
[2023-08-23] MEDS: Ferrous Sulfate 324 MG TABLET.DR PO ×2 (09:45→20:09)
[2023-08-23] MEDS: Lidocaine 4 % Patch ADH..PATCH 1 PATCH TRANSDERMA (09:45)
[2023-08-23] MEDS: Omeprazole 20 MG CAPSULE.DR PO ×2 (09:45→20:09)
[2023-08-23] MEDS: Cholecalciferol (Vitamin D3) 25 MCG TABLET PO (09:45)
[2023-08-23] MEDS: 0.9 % Sodium Chloride Flush 3 ML SYRINGE IVFLUSH ×2 (09:45→16:22)
[2023-08-23] MEDS: HYDROmorphone HCl 2 MG TABLET 1 MG PO (12:46)
--- NOTE | 2023-08-23 13:06 | PM.PNCARD ---
Subjective Subjective Date of Service: 08/23/23 Interval history: Seen examined at bedside. She has not had blood cultures in the last for 5 days. She had blood cultures drawn today. She has a consistent IV access with triple-lumen catheter in the right IJ at this point. Complaining of back pain. 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 NECK: no carotid bruit, right IJ triple-lumen catheter. Bruising over the upper chest. HEART: no murmurs, regular rate and rhythm. LUNGS: clear to auscultation bilaterally. ABDOMEN: soft, nontender. EXTREMITIES: no edema. PERIPHERAL PULSES: equal. NEUROLOGIC: Awake and alert. Following commands. Objective Labs and Meds 08/23/23 06:41 08/23/23 06:41 Lab results: Laboratory Results - last 24 hr 08/19/23 08/22/23 08/22/23 05:54 06:08 13:11 WBC RBC Hgb Hct MCV MCH MCHC RDW Plt Count MPV Absolute Nucleated RBC Nucleated RBC % (auto) Smear Path Review SEE NOTE Hold Purple Top Sodium Potassium Chloride Carbon Dioxide Anion Gap BUN Creatinine Estim Creat Clear Calc Estimated GFR Fasting Glucose Calcium Hep C Viral Load <15 NOT DETECTED Hep C Viral Load Log <1.18 NOT DETECTED Blood Type AB Positive Antibody Screen NEGATIVE Crossmatch See Detail 08/23/23 06:41 WBC 17.7 H RBC 2.74 L D Hgb 8.4 L Hct 25.2 L D MCV 92.0 MCH 30.7 MCHC 33.3 RDW 15.7 Plt Count 222 D MPV 9.6 Absolute Nucleated RBC 0.000 Nucleated RBC % (auto) 0.0 Smear Path Review Hold Purple Top SEE NOTE Sodium 133 L Potassium 3.5 Chloride 107 Carbon Dioxide 21 L Anion Gap 9 L BUN 15 Creatinine 0.71 Estim Creat Clear Calc 60.1 Estimated GFR > 60 Fasting Glucose 80 Calcium 7.7 L Hep C Viral Load Hep C Viral Load Log Blood Type Antibody Screen Crossmatch Progress Note: A&P Assessment and plan (1) Bacteremia: Status: Acute Plan 73-year-old female presenting with MRSA bacteremia. She also has bilateral lower extremity DVTs and is on anticoagulation. Antibiotics were not consistently given because of IV access issues. She was a previous drug abuser with significant venous and skin scarring on the arms. She has a triple-lumen catheter now. She had blood cultures drawn today. Continue antibiotics. If she is persistently bacteremic then we may have to discuss NIC. Transthoracic imaging did not show any obvious vegetation but tricuspid valve was not well visualized on that. We will follow along with you. Thank you for allowing me to participate in the care of your patient. Please feel free to contact me if you have any questions. Time Spent With Patient Time: Total time managing care of this patient today ____ minutes. Progress Note: Quality Stroke Does the patient have a stroke diagnosis?: No Procedures Date of Service Date of Service: 08/23/23
--- NOTE | 2023-08-23 14:28 | PC.NURSE ---
Pt yelling for pain meds, medicated prior with Dilaudid. Pt with Opiate Abuse Past. States I'm leaving, my sister will do whatever I tell her to do. Pt having unclear thoughts of the level of care she requires and can not care for herself being dependent for care. Medicated per eMAR for pain, primary nurse unavailable. Call oro within reach.
[2023-08-23] MEDS: oxyCODONE HCl Immed Release 5 MG TABLET PO (16:31)
[2023-08-23] MEDS: Enoxaparin Sodium 60 MG/0.6 ML SYRINGE SUBCUT (18:13)
[2023-08-23] MEDS: Montelukast Sodium 10 MG TABLET PO (20:09)
[2023-08-23] MEDS: Melatonin 3 MG TABLET 6 MG PO (22:05)
[2023-08-24 03:04] VITALS: BP 111/59; PULSE 98; RESP 14; TEMP 37.1; O2SAT 98
[2023-08-24] MEDS: Morphine Sulfate 2 MG/ML CARTRIDGE IVPUSH ×3 (03:05→19:44)
[2023-08-24] MEDS: HYDROmorphone HCl 2 MG TABLET 1 MG PO ×2 (06:31→13:08)
[2023-08-24] MEDS: Enoxaparin Sodium 60 MG/0.6 ML SYRINGE SUBCUT ×2 (06:33→19:44)
[2023-08-24 07:34] VITALS: BP 127/67; PULSE 97; RESP 12; TEMP 36.8; O2SAT 97
[2023-08-24] MEDS: Fluticasone Propionate 250 MCG BLST.W.DEV 1 PUFF INHALE ×2 (07:43→19:22)
[2023-08-24] MEDS: Tiotropium Bromide 2.5 mcg 1 PUFF/2.5 MCG MIST.INHAL 2 PUFF INHALE (07:43)
[2023-08-24 07:48] VITALS: PULSE 96; RESP 16; O2SAT 95
[2023-08-24 08:35] VITALS: RESP 16
[2023-08-24] MEDS: Lidocaine 4 % Patch ADH..PATCH 1 PATCH TRANSDERMA (08:36)
[2023-08-24] MEDS: 0.9 % Sodium Chloride Flush 3 ML SYRINGE IVFLUSH ×3 (08:36→19:58)
--- NOTE | 2023-08-24 09:06 | HO.PM.IMPN ---
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 NECK: no carotid bruit, right IJ triple-lumen catheter. Bruising over the upper chest. HEART: no murmurs, regular rate and rhythm. LUNGS: clear to auscultation bilaterally. ABDOMEN: soft, nontender. EXTREMITIES: no edema. PERIPHERAL PULSES: equal. NEUROLOGIC: Awake and alert. Following commands. Objective Data Active Medications Acetaminophen (Acetaminophen 325 Mg Tablet) 650 mg PO Q6H PRN PRN Reason: Pain, Mild (Pain Scale 1-3) Last Admin: 08/22/23 08:05 Dose: 650 mg Documented By: SOURAV Albuterol Sulfate (Albuterol Sulfate 90 Mcg 8 Gm Inhaler) 2 puff INHALE Q4H PRN PRN Reason: Shortness Of Breath Or Wheezing Enoxaparin Sodium (Enoxaparin Sodium 60 Mg/0.6 Ml Syringe) 60 mg 1 mg/kg (60 mg) SUBCUT Q12H [facility] Last Admin: 08/24/23 06:33 Dose: 60 mg Documented By: FIDENCIO Ferrous Sulfate (Ferrous Sulfate 324 Mg Tablet.) 324 mg PO BID [facility] Last Admin: 08/24/23 08:27 Dose: Not Given Documented By: HENRIK Non-Admin Reason: NPO Fluticasone Propionate (Fluticasone Propionate 250 Mcg Blst.W.Dev) 1 puff INHALE RBID [facility] Last Admin: 08/24/23 07:43 Dose: 1 puff Documented By: ARMANI Hydromorphone HCl (Hydromorphone Hcl 2 Mg Tablet) 1 mg PO Q3H PRN PRN Reason: mod pain Last Admin: 08/24/23 06:31 Dose: 1 mg Documented By: FIDENCIO Daptomycin 448 mg/ Sodium (Chloride) 58.96 mls @ 100 mls/hr IV Q24H [facility] Last Infusion: 08/23/23 12:28 Dose: Infused Documented By: ALONDRA Lidocaine (Lidocaine 4 % Patch Adh..Patch) 1 patch TRANSDERMA DAILY [facility]; Protocol Last Admin: 08/24/23 08:36 Dose: 1 patch Documented By: HENRIK Lorazepam (Lorazepam 2 Mg/Ml Vial) 1 mg IM ONCE PRN PRN Reason: preprocedure Last Admin: 08/22/23 10:34 Dose: 1 mg Documented By: SOURAV Melatonin (Melatonin 3 Mg Tablet) 6 mg PO BEDTIME PRN PRN Reason: Insomnia Last Admin: 08/23/23 22:05 Dose: 6 mg Documented By: FIDENCIO Montelukast Sodium (Montelukast Sodium 10 Mg Tablet) 10 mg PO BEDTIME [facility] Last Admin: 08/23/23 20:09 Dose: 10 mg Documented By: JERRY Morphine Sulfate (Morphine Sulfate 2 Mg/Ml Cartridge) 2 mg IVPUSH Q4H PRN; Protocol PRN Reason: severe pain Last Admin: 08/24/23 08:35 Dose: 2 mg Documented By: HENRIK Omeprazole (Omeprazole 20 Mg Capsule.Dr) 20 mg PO BID [facility] Last Admin: 08/24/23 08:27 Dose: Not Given Documented By: HENRIK Non-Admin Reason: NPO Ondansetron HCl (Ondansetron Hcl 4 Mg/2 Ml Vial) 4 mg IVPUSH Q8H PRN PRN Reason: Nausea and Vomiting Oxycodone HCl (Oxycodone Hcl Immed Release 5 Mg Tablet) 5 mg PO Q4H PRN PRN Reason: mod pain Last Admin: 08/23/23 16:31 Dose: 5 mg Documented By: ALONDRA Sodium Chloride (0.9 % Sodium Chloride Flush 3 Ml Syringe) 3 ml IVFLUSH QSHIFT [facility] Last Admin: 08/24/23 08:36 Dose: 3 ml Documented By: HENRIK Tiotropium [place] (Tiotropium [place] 2.5 Mcg 1 Puff/2.5 Mcg Mist.Inhal) 2 puff INHALE RDAILY [facility] Last Admin: 08/24/23 07:43 Dose: 2 puff Documented By: ARMANI Vitamin D (Cholecalciferol (Vitamin D3) 25 Mcg Tablet) 25 mcg PO DAILY [facility] Last Admin: 08/24/23 08:26 Dose: Not Given Documented By: HENRIK Non-Admin Reason: NPO Labs 08/23/23 06:41 08/23/23 06:41 Microbiology Microbiology Results: Microbiology 08/23/23 07:39 Blood Culture - Preliminary Blood - Central Line Prelim: GPC Gram Stain only 08/23/23 07:40 Blood Culture - Preliminary Blood - Central Line Prelim: GPC Gram Stain only 08/22/23 06:00 Blood Culture - Final Blood - Venous 08/22/23 06:00 Blood Culture - Final Blood - Venous Assessment and Plan (1) Bacteremia: Status: Acute Plan d9 73yo F with COPD, HCV, hx IDU, hx MRSA abscesses, hx Cdiff, hx E coli colitis, hx osteomyelitis of humerus/clavicle/scapula with MSSA bacteremia and treated at [facility] [place], chronic anemia recently admitted here 08/03/23 for anemia left AMA 08/14/23 despite fever concerning for infection found to have MRSA bacteremia and called back to hospital and re-admitted also found to have bilateral occlusive DVTs persistently bacteremic occlusive BLE DVTs started therapeutic enoxaparin 1 mg/kg 08/17. Vasc Surg consult, not a candidate for endovascular intervention given uncontrolled infection MRSA bacteremia vanco 08/15-08/17, dapto 08/17- [changed due to difficult phlebotomy- couldn't monitor troughs] TTE 08/16: - The left ventricular systolic function is normal. The calculated ejection fraction is 66% by biplane method. - There is moderate calcification of the aortic valve. - There is mild mitral annular calcification. - Mild pulmonary hypertension is present. - The tricuspid valve was not well visualized. Cannot exclude vegetation. - ID appreciated - BCx from 08/14, 08/15, 08/18, 08/23 positive. Repeat 08/25. Once clear, will need a PICC line for 6+ wk of IV ABX. - plan for NIC today hold off on ancef adjuvent as pcn allergy now with TLC for access acute/chronic anemia - transfused 2u pRBCs last admission; scope revealed non-bleeding stomach ulcers and infectious colitis - transfused 1u pRBCs 08/16, H+H responded appropriately transfuse 1 unit 08/22 hypoNa, mild hypoMg - repleted wounds - Wound Care consulted last admission: Coccyx wound, unstageable > cleanse with normal saline, apply triad to periwound, lightly pack coccyx with Durafiber Ag cover with sacral foam dressing, daily Right arm AC, abrasion > cleanse with normal saline, apply skin prep to periwound, lightly packed with Durafiber Ag, cover with foam dressing, daily Left forearm> cleanse with normal saline, or cover scabbed area with hydrocolloid dressing, change every 3 days In addition, frequent turning/repositioning every 2 hours to offload bony prominences along with air loss mattress. COPD - continue Flovent + Spiriva, prn albuterol GERD - continue PPI mood disorder - clonazepam + zolpidem hx opioid abuse - met Recovery Team, denies use since 2000, attributes recent +Utox to pain meds received in hospital - HCV Ab+ - HBV immune from prior infection - HIV negative VTE ppx on full treatment with LMWH dispo - will need STR eventually for IV ABX reason for continued hospitalization:still bacteremic Total time managing care of this patient today: 45 minutes. Quality Stroke Does the patient have a stroke diagnosis?: No VTE Prior VTE?: No VTE Risk Level:: Medical - moderate - high VTE Device Contraindication: Treatment Not Indicated VTE Drug Contraindication: N/A - Med Ordered
--- NOTE | 2023-08-24 09:48 | PM.PNCARD ---
Subjective Subjective Date of Service: 08/24/23 Interval history: Repeat blood cultures are positive and she is going Staph aureus in the blood. She has background of remote IV drug use. She is currently NPO for potential NIC. 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 NECK: no carotid bruit, right IJ triple-lumen catheter. Bruising over the upper chest. HEART: no murmurs, regular rate and rhythm. LUNGS: clear to auscultation bilaterally. ABDOMEN: soft, nontender. EXTREMITIES: no edema. PERIPHERAL PULSES: equal. NEUROLOGIC: Awake and alert. Following commands. Objective Labs and Meds 08/23/23 06:41 08/23/23 06:41 Progress Note: A&P Assessment and plan (1) DVT (deep venous thrombosis): Status: Acute (2) Bacteremia: Status: Acute Plan 73-year-old female with MRSA bacteremia. She is on appropriate antibiotics and has persistent bacteremia at this point. She had poor IV access and her right triple-lumen catheter placed day before yesterday. Blood cultures from the triple-lumen sent yesterday are positive again. We had discussion about doing NIC to rule out endocarditis and she is agreeable. Keep NPO going forward. Thank you for allowing me to participate in the care of your patient. Please feel free to contact me if you have any questions. Time Spent With Patient Time: Total time managing care of this patient today ____ minutes. Progress Note: Quality Stroke Does the patient have a stroke diagnosis?: No Procedures Date of Service Date of Service: 08/24/23
--- NOTE | 2023-08-24 10:33 | MHC.CM.PN ---
PER MD ROUNDS, PT NOT MEDICALLY CLEARED TO DC, CULTURES STILL + SHE WILL NEED SNF PLACEMENT FOR LT IV ABX [facility]
[2023-08-24 15:28] VITALS: BP 115/56; PULSE 98; RESP 16; TEMP 36.4; O2SAT 96
[2023-08-24] MEDS: oxyCODONE HCl Immed Release 5 MG TABLET PO ×2 (15:28→23:28)
[2023-08-24 19:14] VITALS: BP 105/64; PULSE 75; RESP 16; TEMP 36.7; O2SAT 96
[2023-08-24] MEDS: Ferrous Sulfate 324 MG TABLET.DR PO (19:44)
[2023-08-24] MEDS: Omeprazole 20 MG CAPSULE.DR PO (19:44)
[2023-08-24] MEDS: Melatonin 3 MG TABLET 6 MG PO (19:55)
[2023-08-24] MEDS: Montelukast Sodium 10 MG TABLET PO (19:57)
--- NOTE | 2023-08-24 22:59 | P.PNID_ITS ---
Subjective Subjective Date of Service: 08/24/23 Critical Care Time (minutes): 15 Comment: She has weakness and pain left leg and back pain Objective Data Labs 08/23/23 06:41 08/23/23 06:41 Microbiology Microbiology Results: Microbiology 08/23/23 07:40 Blood - Central Line Blood Culture - Preliminary Staphylococcus aureus 08/23/23 07:39 Blood - Central Line Blood Culture - Preliminary Staphylococcus aureus 08/22/23 06:00 Blood - Venous Blood Culture - Final 08/22/23 06:00 Blood - Venous Blood Culture - Final 08/21/23 10:39 Blood - Venous Blood Culture - Final 08/21/23 10:39 Blood - Venous Blood Culture - Final 08/21/23 10:35 Blood - Venous Blood Culture - Final 08/21/23 10:35 Blood - Venous Blood Culture - Final 08/18/23 06:30 Blood - Venous Blood Culture - Final Methicillin Res Staph Aureus 08/18/23 06:30 Blood - Venous Blood Culture - Final Methicillin Res Staph Aureus 08/17/23 20:54 Urine clean catch - Clean Catch Midstream Urine Culture - Final 08/15/23 21:30 Blood - Venous Blood Culture - Final Methicillin Res Staph Aureus 08/15/23 21:30 Blood - Venous Blood Culture - Final Methicillin Res Staph Aureus Physical Exam 2 Vital Signs: Vital Signs: Last Vital Signs Temp 98.0 F 08/24/23 19:14 Pulse 75 08/24/23 19:14 Resp 16 08/24/23 19:14 BP 105/64 08/24/23 19:14 Pulse Ox 96 08/24/23 19:14 O2 Del Method Room Air 08/24/23 19:14 BMI result Body Mass Index 21.9 Const: General: cooperative Resp: Effort & Inspection: normal respiratory effort Auscultation: clear to auscultation bilaterally GI: Other: nontender back discomfort some swelling left leg Assessment and Plan Assessment and plan (1) Bacteremia: Problem details: MRSA bacteremia Failure to clear Possible skin source Check tagged WBC scan. Add Kefzol for five days. Not able to do NIC. Continue Daptomycin six weeks first negative blood culture. Status: Acute Time Spent With Patient Time: Total time managing care of this patient today ____ minutes.
[2023-08-25] MEDS: Morphine Sulfate 2 MG/ML CARTRIDGE IVPUSH ×6 (00:14→21:11)
[2023-08-25 00:15] VITALS: BP 126/64; PULSE 99; RESP 16; TEMP 36.6; O2SAT 97
[2023-08-25] MEDS: HYDROmorphone HCl 2 MG TABLET 1 MG PO (03:33)
--- NOTE | 2023-08-25 04:28 | PC.NURSE ---
she has three different pain medications per NOV. This nurse given Oxycodone and Dilaudid po. pt states that po medications are not working at all, useless. she prefer to have IV medication only. waiting for IV morphine round clock. pt has DVT on leg, below the waist on left side swollen, warm to touch, fade pedal pulse. provided the bedpan to urinated and q2r. will continue to monitor any changes.
[2023-08-25 05:36] LABS: Hematocrit 21.5 % (37.0-47.0); Hemoglobin 7.1 g/dl (12.0-16.0); Mean Corpuscular Hemoglobin 31.1 pg (27.0-33.0); Mean Corpuscular Volume 94.3 fL (80.0-98.0); Mean Platelet Volume 9.6 fL (9.4-12.3); Platelet Count 190 X10*3/uL (160-400); Red Blood Count 2.28 X10*6/uL (4.20-5.50); Red Cell Distribution Width 16.3 % (11.0-16.0)
[2023-08-25 05:49] LABS: Anion Gap 6 (12-20); Blood Urea Nitrogen 10 mg/dL (9-16); Calcium 7.5 mg/dL (8.4-10.2); Carbon Dioxide 24 mmol/L (22-29); Chloride 106 mmol/L (96-108); Creatinine Clr Calc Pharmacy 66.6; Estimated Glomerular Filt Rate > 60; Glucose Fasting 87 mg/dL (60-99); Potassium 3.3 mmol/L (3.3-5.1); Sodium 133 mmol/L (135-145)
[2023-08-25] MEDS: Enoxaparin Sodium 60 MG/0.6 ML SYRINGE SUBCUT ×2 (06:47→18:38)
[2023-08-25 08:00] VITALS: BP 115/62; PULSE 95; RESP 17; TEMP 36.9; O2SAT 97
[2023-08-25 08:25] VITALS: PULSE 95; RESP 17; O2SAT 97
[2023-08-25] MEDS: Tiotropium Bromide 2.5 mcg 1 PUFF/2.5 MCG MIST.INHAL 2 PUFF INHALE (08:25)
[2023-08-25] MEDS: Fluticasone Propionate 250 MCG BLST.W.DEV 1 PUFF INHALE ×2 (08:25→19:53)
[2023-08-25] MEDS: Lidocaine 4 % Patch ADH..PATCH 1 PATCH TRANSDERMA (08:40)
[2023-08-25] MEDS: Cholecalciferol (Vitamin D3) 25 MCG TABLET PO (08:41)
[2023-08-25] MEDS: Omeprazole 20 MG CAPSULE.DR PO ×2 (08:41→21:09)
[2023-08-25] MEDS: Ferrous Sulfate 324 MG TABLET.DR PO ×2 (08:41→21:09)
--- NOTE | 2023-08-25 08:52 | HO.PM.IMPN ---
Subjective Subjective Date of Service: 08/25/23 Interval History: no new complaints Physical Exam Vital Signs: Vital Signs: Last Vital Signs Temp 98.5 F 08/25/23 08:00 Pulse 95 08/25/23 08:25 Resp 17 08/25/23 08:25 BP 115/62 08/25/23 08:00 Pulse Ox 97 08/25/23 08:00 O2 Del Method Room Air 08/25/23 08:00 BMI result Body Mass Index 21.9 Const: General: cooperative Resp: Effort & Inspection: normal respiratory effort Auscultation: clear to auscultation bilaterally GI: Other: nontender back discomfort some swelling left leg Objective Data Active Medications Acetaminophen (Acetaminophen 325 Mg Tablet) 650 mg PO Q6H PRN PRN Reason: Pain, Mild (Pain Scale 1-3) Last Admin: 08/22/23 08:05 Dose: 650 mg Documented By: SOURAV Albuterol Sulfate (Albuterol Sulfate 90 Mcg 8 Gm Inhaler) 2 puff INHALE Q4H PRN PRN Reason: Shortness Of Breath Or Wheezing Enoxaparin Sodium (Enoxaparin Sodium 60 Mg/0.6 Ml Syringe) 60 mg 1 mg/kg (60 mg) SUBCUT Q12H [facility] Last Admin: 08/25/23 06:47 Dose: 60 mg Documented By: ANGELA Ferrous Sulfate (Ferrous Sulfate 324 Mg Tablet.Dr) 324 mg PO BID [facility] Last Admin: 08/25/23 08:41 Dose: 324 mg Documented By: HEATHER Fluticasone Propionate (Fluticasone Propionate 250 Mcg Blst.W.Dev) 1 puff INHALE RBID [facility] Last Admin: 08/25/23 08:25 Dose: 1 puff Documented By: GWEN Hydromorphone HCl (Hydromorphone Hcl 2 Mg Tablet) 1 mg PO Q3H PRN PRN Reason: mod pain Last Admin: 08/25/23 03:33 Dose: 1 mg Documented By: ANGELA Comments: Daptomycin 448 mg/ Sodium (Chloride) 58.96 mls @ 100 mls/hr IV Q24H [facility] Last Infusion: 08/24/23 14:07 Dose: Infused Documented By: HENRIK Lidocaine (Lidocaine 4 % Patch Adh..Patch) 1 patch TRANSDERMA DAILY [facility]; Protocol Last Admin: 08/25/23 08:40 Dose: 1 patch Documented By: HEATHER Lorazepam (Lorazepam 2 Mg/Ml Vial) 1 mg IM ONCE PRN PRN Reason: preprocedure Last Admin: 08/22/23 10:34 Dose: 1 mg Documented By: SOURAV Melatonin (Melatonin 3 Mg Tablet) 6 mg PO BEDTIME PRN PRN Reason: Insomnia Last Admin: 08/24/23 19:55 Dose: 6 mg Documented By: ANGELA Montelukast Sodium (Montelukast Sodium 10 Mg Tablet) 10 mg PO BEDTIME GETACHEW Last Admin: 08/24/23 19:57 Dose: 10 mg Documented By: ANGELA Morphine Sulfate (Morphine Sulfate 2 Mg/Ml Cartridge) 2 mg IVPUSH Q4H PRN; Protocol PRN Reason: severe pain Last Admin: 08/25/23 04:39 Dose: 2 mg Documented By: ANGELA Omeprazole (Omeprazole 20 Mg Capsule.Dr) 20 mg PO BID [facility] Last Admin: 08/25/23 08:41 Dose: 20 mg Documented By: HEATHER Ondansetron HCl (Ondansetron Hcl 4 Mg/2 Ml Vial) 4 mg IVPUSH Q8H PRN PRN Reason: Nausea and Vomiting Oxycodone HCl (Oxycodone Hcl Immed Release 5 Mg Tablet) 5 mg PO Q4H PRN PRN Reason: mod pain Last Admin: 08/24/23 23:28 Dose: 5 mg Documented By: ANGELA Sodium Chloride (0.9 % Sodium Chloride Flush 3 Ml Syringe) 3 ml IVFLUSH QSHIFT [facility] Last Admin: 08/24/23 19:58 Dose: 3 ml Documented By: ANGELA Tiotropium [place] (Tiotropium [place] 2.5 Mcg 1 Puff/2.5 Mcg Mist.Inhal) 2 puff INHALE RDAILY [facility] Last Admin: 08/25/23 08:25 Dose: 2 puff Documented By: GWEN Vitamin D (Cholecalciferol (Vitamin D3) 25 Mcg Tablet) 25 mcg PO DAILY [facility] Last Admin: 08/25/23 08:41 Dose: 25 mcg Documented By: HEATHER Labs 08/25/23 05:23 08/25/23 05:23 Labs: Laboratory Results - last 24 hr 08/25/23 05:23 MCV 94.3 MCH 31.1 MCHC 33.0 RDW 16.3 H Plt Count 190 MPV 9.6 Absolute Nucleated RBC 0.000 Nucleated RBC % (auto) 0.0 Anion Gap 6 L Estim Creat Clear Calc 66.6 Estimated GFR > 60 Fasting Glucose 87 Calcium 7.5 L Microbiology Microbiology Results: Microbiology 08/23/23 07:40 Blood Culture - Final Blood - Central Line Methicillin Res Staph Aureus 08/23/23 07:39 Blood Culture - Final Blood - Central Line Methicillin Res Staph Aureus Assessment and Plan (1) Bacteremia: Status: Acute Plan d9 73yo F with COPD, HCV, hx IDU, hx MRSA abscesses, hx Cdiff, hx E coli colitis, hx osteomyelitis of humerus/clavicle/scapula with MSSA bacteremia and treated at [facility] [place], chronic anemia recently admitted here 08/03/23 for anemia left AMA 08/14/23 despite fever concerning for infection found to have MRSA bacteremia and called back to hospital and re-admitted also found to have bilateral occlusive DVTs persistently bacteremic occlusive BLE DVTs started therapeutic enoxaparin 1 mg/kg 08/17. Vasc Surg consult, not a candidate for endovascular intervention given uncontrolled infection MRSA bacteremia vanco 08/15-08/17, dapto 08/17- [changed due to difficult phlebotomy- couldn't monitor troughs] TTE 08/16: - The left ventricular systolic function is normal. The calculated ejection fraction is 66% by biplane method. - There is moderate calcification of the aortic valve. - There is mild mitral annular calcification. - Mild pulmonary hypertension is present. - The tricuspid valve was not well visualized. Cannot exclude vegetation. - ID appreciated - BCx from 08/14, 08/15, 08/18, 08/23 positive. Repeat 08/25. Once clear, will need a PICC line for 6+ wk of IV ABX. hold off on ancef adjuvent as pcn allergy now with [facility] for access plan for wbc scan acute/chronic anemia - transfused 2u pRBCs last admission; scope revealed non-bleeding stomach ulcers and infectious colitis - transfused 1u pRBCs 08/16, H+H responded appropriately transfuse 1 unit 08/22 hypoNa, mild hypoMg - repleted wounds - Wound Care consulted last admission: Coccyx wound, unstageable > cleanse with normal saline, apply triad to periwound, lightly pack coccyx with Durafiber Ag cover with sacral foam dressing, daily Right arm AC, abrasion > cleanse with normal saline, apply skin prep to periwound, lightly packed with Durafiber Ag, cover with foam dressing, daily Left forearm> cleanse with normal saline, or cover scabbed area with hydrocolloid dressing, change every 3 days In addition, frequent turning/repositioning every 2 hours to offload bony prominences along with air loss mattress. COPD - continue Flovent + Spiriva, prn albuterol GERD - continue PPI mood disorder - clonazepam + zolpidem hx opioid abuse - met Recovery Team, denies use since 2000, attributes recent +Utox to pain meds received in hospital - HCV Ab+ - HBV immune from prior infection - HIV negative VTE ppx on full treatment with LMWH dispo - will need STR eventually for IV ABX reason for continued hospitalization:still bacteremic Total time managing care of this patient today: 45 minutes. Quality Stroke Does the patient have a stroke diagnosis?: No VTE Prior VTE?: No VTE Risk Level:: Medical - moderate - high VTE Device Contraindication: Treatment Not Indicated VTE Drug Contraindication: N/A - Med Ordered
[2023-08-25] MEDS: Potassium Chloride ER 20 MEQ TAB.ER.PRT 40 MEQ PO (09:09)
[2023-08-25] MEDS: 0.9 % Sodium Chloride Flush 3 ML SYRINGE IVFLUSH ×3 (09:12→21:11)
[2023-08-25 16:00] VITALS: BP 112/60; PULSE 108; RESP 17; TEMP 36.1; O2SAT 97
[2023-08-25 19:08] VITALS: BP 137/61; PULSE 98; RESP 18; TEMP 36.8; O2SAT 97
[2023-08-25 19:53] VITALS: PULSE 98; RESP 18; O2SAT 95
[2023-08-25] MEDS: Montelukast Sodium 10 MG TABLET PO (21:09)
[2023-08-26] MEDS: Morphine Sulfate 2 MG/ML CARTRIDGE IVPUSH ×5 (01:37→20:23)
[2023-08-26 04:00] VITALS: BP 128/77; PULSE 77; RESP 18; TEMP 37; O2SAT 96
[2023-08-26] MEDS: Enoxaparin Sodium 60 MG/0.6 ML SYRINGE SUBCUT ×2 (07:09→18:01)
[2023-08-26] MEDS: 0.9 % Sodium Chloride Flush 3 ML SYRINGE IVFLUSH ×3 (07:10→20:23)
[2023-08-26 08:00] VITALS: BP 115/60; PULSE 89; RESP 17; TEMP 36.3
[2023-08-26] MEDS: Tiotropium Bromide 2.5 mcg 1 PUFF/2.5 MCG MIST.INHAL 2 PUFF INHALE (08:01)
[2023-08-26] MEDS: Fluticasone Propionate 250 MCG BLST.W.DEV 1 PUFF INHALE ×2 (08:01→19:42)
[2023-08-26 08:03] VITALS: PULSE 78; RESP 18; O2SAT 96
--- NOTE | 2023-08-26 08:28 | HO.PM.IMPN ---
Subjective Subjective Date of Service: 08/26/23 Interval History: no new complaints Physical Exam Vital Signs: Vital Signs: Last Vital Signs Temp 98.6 F 08/26/23 04:00 Pulse 78 08/26/23 08:03 Resp 18 08/26/23 08:03 BP 128/77 08/26/23 04:00 Pulse Ox 96 08/26/23 04:00 O2 Del Method Room Air 08/26/23 04:00 BMI result Body Mass Index 21.9 Const: General: cooperative Resp: Effort & Inspection: normal respiratory effort Auscultation: clear to auscultation bilaterally GI: Other: nontender back discomfort some swelling left leg Objective Data Active Medications Acetaminophen (Acetaminophen 325 Mg Tablet) 650 mg PO Q6H PRN PRN Reason: Pain, Mild (Pain Scale 1-3) Last Admin: 08/22/23 08:05 Dose: 650 mg Documented By: SOURAV Albuterol Sulfate (Albuterol Sulfate 90 Mcg 8 Gm Inhaler) 2 puff INHALE Q4H PRN PRN Reason: Shortness Of Breath Or Wheezing Enoxaparin Sodium (Enoxaparin Sodium 60 Mg/0.6 Ml Syringe) 60 mg 1 mg/kg (60 mg) SUBCUT Q12H [facility] Last Admin: 08/26/23 07:09 Dose: 60 mg Documented By: HEATHER Ferrous Sulfate (Ferrous Sulfate 324 Mg Tablet.Dr) 324 mg PO BID [facility] Last Admin: 08/25/23 21:09 Dose: 324 mg Documented By: ANGELA Fluticasone Propionate (Fluticasone Propionate 250 Mcg Blst.W.Dev) 1 puff INHALE RBID [facility] Last Admin: 08/26/23 08:01 Dose: 1 puff Documented By: GWEN Hydromorphone HCl (Hydromorphone Hcl 2 Mg Tablet) 1 mg PO Q3H PRN PRN Reason: mod pain Last Admin: 08/25/23 03:33 Dose: 1 mg Documented By: ANGELA Comments: Daptomycin 448 mg/ Sodium (Chloride) 58.96 mls @ 100 mls/hr IV Q24H [facility] Last Infusion: 08/25/23 12:26 Dose: Infused Documented By: HEATHER Lidocaine (Lidocaine 4 % Patch Adh..Patch) 1 patch TRANSDERMA DAILY [facility]; Protocol Last Admin: 08/25/23 08:40 Dose: 1 patch Documented By: HEATHER Lorazepam (Lorazepam 2 Mg/Ml Vial) 1 mg IM ONCE PRN PRN Reason: preprocedure Last Admin: 08/22/23 10:34 Dose: 1 mg Documented By: SOURAV Melatonin (Melatonin 3 Mg Tablet) 6 mg PO BEDTIME PRN PRN Reason: Insomnia Last Admin: 08/24/23 19:55 Dose: 6 mg Documented By: ANGELA Montelukast Sodium (Montelukast Sodium 10 Mg Tablet) 10 mg PO BEDTIME [facility] Last Admin: 08/25/23 21:09 Dose: 10 mg Documented By: ANGELA Morphine Sulfate (Morphine Sulfate 2 Mg/Ml Cartridge) 2 mg IVPUSH Q4H PRN; Protocol PRN Reason: mod pain Last Admin: 08/26/23 07:07 Dose: 2 mg Documented By: HEATHER Omeprazole (Omeprazole 20 Mg Capsule.Dr) 20 mg PO BID [facility] Last Admin: 08/25/23 21:09 Dose: 20 mg Documented By: ANGELA Ondansetron HCl (Ondansetron Hcl 4 Mg/2 Ml Vial) 4 mg IVPUSH Q8H PRN PRN Reason: Nausea and Vomiting Oxycodone HCl (Oxycodone Hcl Immed Release 5 Mg Tablet) 5 mg PO Q4H PRN PRN Reason: mod pain Last Admin: 08/24/23 23:28 Dose: 5 mg Documented By: ANGELA Sodium Chloride (0.9 % Sodium Chloride Flush 3 Ml Syringe) 3 ml IVFLUSH QSHIFT [facility] Last Admin: 08/26/23 07:10 Dose: 3 ml Documented By: HEATHER Tiotropium [place] (Tiotropium [place] 2.5 Mcg 1 Puff/2.5 Mcg Mist.Inhal) 2 puff INHALE RDAILY [facility] Last Admin: 08/26/23 08:01 Dose: 2 puff Documented By: GWEN Vitamin D (Cholecalciferol (Vitamin D3) 25 Mcg Tablet) 25 mcg PO DAILY [facility] Last Admin: 08/25/23 08:41 Dose: 25 mcg Documented By: HEATHER Labs 08/25/23 05:23 08/25/23 05:23 Labs: Laboratory Results - last 24 hr 08/25/23 08/26/23 05:23 00:42 Hold Purple Top SEE NOTE Anion Gap 6 L Estim Creat Clear Calc 66.6 Estimated GFR > 60 Fasting Glucose 87 Calcium 7.5 L Microbiology Microbiology Results: Microbiology 08/25/23 08:08 Blood Culture - Preliminary Blood - Central Line Gram positive cocci 08/25/23 07:49 Blood Culture - Preliminary Blood - Central Line Prelim: GPC Gram Stain only 08/24/23 15:08 Blood Culture - Preliminary Blood - Venous Gram positive cocci 08/24/23 15:08 Blood Culture - Preliminary Blood - Venous Prelim: GPC Gram Stain only 08/23/23 07:40 Blood Culture - Final Blood - Central Line Methicillin Res Staph Aureus 08/23/23 07:39 Blood Culture - Final Blood - Central Line Methicillin Res Staph Aureus Assessment and Plan (1) Bacteremia: Status: Acute Plan 73yo F with COPD, HCV, hx IDU, hx MRSA abscesses, hx Cdiff, hx E coli colitis, hx osteomyelitis of humerus/clavicle/scapula with MSSA bacteremia and treated at [facility] [place], chronic anemia recently admitted here 08/03/23 for anemia left AMA 08/14/23 despite fever concerning for infection found to have MRSA bacteremia and called back to hospital and re-admitted also found to have bilateral occlusive DVTs persistently bacteremic occlusive BLE DVTs started therapeutic enoxaparin 1 mg/kg 08/17. Vasc Surg consult, not a candidate for endovascular intervention given uncontrolled infection MRSA bacteremia vanco 08/15-08/17, dapto 08/17- [changed due to difficult phlebotomy- couldn't monitor troughs] TTE 08/16: - The left ventricular systolic function is normal. The calculated ejection fraction is 66% by biplane method. - There is moderate calcification of the aortic valve. - There is mild mitral annular calcification. - Mild pulmonary hypertension is present. - The tricuspid valve was not well visualized. Cannot exclude vegetation. - ID appreciated - BCx from 08/14, 08/15, 08/18, 08/23, 08/24, 08/25 positive. Once clear, will need a PICC line for 6+ wk of IV ABX. hold off on ancef adjuvent as pcn allergy now with [facility] for access plan for wbc scan acute/chronic anemia - transfused 2u pRBCs last admission; scope revealed non-bleeding stomach ulcers and infectious colitis - transfused 1u pRBCs 08/16, H+H responded appropriately transfuse 1 unit 08/22 hypoNa, mild hypoMg - repleted wounds - Wound Care consulted last admission: Coccyx wound, unstageable > cleanse with normal saline, apply triad to periwound, lightly pack coccyx with Durafiber Ag cover with sacral foam dressing, daily Right arm AC, abrasion > cleanse with normal saline, apply skin prep to periwound, lightly packed with Durafiber Ag, cover with foam dressing, daily Left forearm> cleanse with normal saline, or cover scabbed area with hydrocolloid dressing, change every 3 days In addition, frequent turning/repositioning every 2 hours to offload bony prominences along with air loss mattress. COPD - continue Flovent + Spiriva, prn albuterol GERD - continue PPI mood disorder - clonazepam + zolpidem hx opioid abuse - met Recovery Team, denies use since 2000, attributes recent +Utox to pain meds received in hospital - HCV Ab+ - HBV immune from prior infection - HIV negative VTE ppx on full treatment with LMWH dispo - will need STR eventually for IV ABX reason for continued hospitalization:still bacteremic Total time managing care of this patient today: 45 minutes. Quality Stroke Does the patient have a stroke diagnosis?: No VTE Prior VTE?: No VTE Risk Level:: Medical - moderate - high VTE Device Contraindication: Treatment Not Indicated VTE Drug Contraindication: N/A - Med Ordered
[2023-08-26] MEDS: Lidocaine 4 % Patch ADH..PATCH 1 PATCH TRANSDERMA (09:04)
[2023-08-26] MEDS: Omeprazole 20 MG CAPSULE.DR PO ×2 (09:05→20:23)
[2023-08-26] MEDS: Ferrous Sulfate 324 MG TABLET.DR PO ×2 (09:05→20:23)
[2023-08-26] MEDS: Cholecalciferol (Vitamin D3) 25 MCG TABLET PO (09:05)
[2023-08-26 15:50] VITALS: BP 127/58; PULSE 96; RESP 17; TEMP 37.1; O2SAT 98
[2023-08-26 19:32] VITALS: BP 121/60; PULSE 97; RESP 18; TEMP 36.6; O2SAT 94
[2023-08-26 19:42] VITALS: PULSE 97; RESP 18; O2SAT 94
[2023-08-26] MEDS: Melatonin 3 MG TABLET 6 MG PO (20:23)
[2023-08-26] MEDS: Montelukast Sodium 10 MG TABLET PO (20:23)
[2023-08-27] VITALS (10 sets, daily range): BP systolic 93–127; BP diastolic 52–69; PULSE 67–95; RESP 16–20; TEMP 36.1–37.1; O2SAT 97–100
[2023-08-27] MEDS: Morphine Sulfate 2 MG/ML CARTRIDGE IVPUSH ×4 (00:40→20:26)
[2023-08-27] MEDS: Enoxaparin Sodium 60 MG/0.6 ML SYRINGE SUBCUT ×2 (05:41→20:26)
[2023-08-27 06:35] LABS: Mean Corpuscular HGB Conc 32.2 g/dl (31.0-35.0); Mean Corpuscular Volume 96.2 fL (80.0-98.0); Mean Platelet Volume 9.9 fL (9.4-12.3); Platelet Count 195 X10*3/uL (160-400); Red Cell Distribution Width 15.9 % (11.0-16.0); White Blood Count 6.1 X10*3/uL (4.8-10.8)
[2023-08-27 06:56] LABS: Anion Gap 8 (12-20); Blood Urea Nitrogen 10 mg/dL (9-16); Calcium 7.5 mg/dL (8.4-10.2); Carbon Dioxide 23 mmol/L (22-29); Chloride 104 mmol/L (96-108); Creatinine Clr Calc Pharmacy 67.7; Estimated Glomerular Filt Rate > 60; Glucose Fasting 129 mg/dL (60-99); Potassium 3.5 mmol/L (3.3-5.1); Sodium 131 mmol/L (135-145)
[2023-08-27 07:25] LABS: Hematocrit 20.2 % (37.0-47.0); Hemoglobin 6.5 g/dl (12.0-16.0)
[2023-08-27] MEDS: Tiotropium Bromide 2.5 mcg 1 PUFF/2.5 MCG MIST.INHAL 2 PUFF INHALE (07:50)
[2023-08-27] MEDS: Fluticasone Propionate 250 MCG BLST.W.DEV 1 PUFF INHALE ×2 (07:50→20:14)
--- NOTE | 2023-08-27 09:39 | HO.PM.IMPN ---
Subjective Subjective Date of Service: 08/27/23 Interval History: no new complaints Physical Exam Vital Signs: Vital Signs: Last Vital Signs Temp 97.8 F 08/27/23 07:33 Pulse 82 08/27/23 07:53 Resp 16 08/27/23 07:53 BP 93/69 08/27/23 07:33 Pulse Ox 98 08/27/23 07:33 O2 Del Method Room Air 08/27/23 07:33 BMI result Body Mass Index 21.9 Const: General: cooperative Resp: Effort & Inspection: normal respiratory effort Auscultation: clear to auscultation bilaterally GI: Other: nontender back discomfort some swelling left leg Objective Data Active Medications Acetaminophen (Acetaminophen 325 Mg Tablet) 650 mg PO Q6H PRN PRN Reason: Pain, Mild (Pain Scale 1-3) Last Admin: 08/22/23 08:05 Dose: 650 mg Documented By: SOURAV Albuterol Sulfate (Albuterol Sulfate 90 Mcg 8 Gm Inhaler) 2 puff INHALE Q4H PRN PRN Reason: Shortness Of Breath Or Wheezing Enoxaparin Sodium (Enoxaparin Sodium 60 Mg/0.6 Ml Syringe) 60 mg 1 mg/kg (60 mg) SUBCUT Q12H [facility] Last Admin: 08/27/23 05:41 Dose: 60 mg Documented By: DOMO Ferrous Sulfate (Ferrous Sulfate 324 Mg Tablet.Dr) 324 mg PO BID [facility] Last Admin: 08/26/23 20:23 Dose: 324 mg Documented By: DOMO Fluticasone Propionate (Fluticasone Propionate 250 Mcg Blst.W.Dev) 1 puff INHALE RBID [facility] Last Admin: 08/27/23 07:50 Dose: 1 puff Documented By: ARMANI Hydromorphone HCl (Hydromorphone Hcl 2 Mg Tablet) 1 mg PO Q3H PRN PRN Reason: mod pain Last Admin: 08/25/23 03:33 Dose: 1 mg Documented By: ANGELA Comments: Daptomycin 448 mg/ Sodium (Chloride) 58.96 mls @ 100 mls/hr IV Q24H [facility] Last Infusion: 08/26/23 11:42 Dose: Infused Documented By: HEATHER Lidocaine (Lidocaine 4 % Patch Adh..Patch) 1 patch TRANSDERMA DAILY [facility]; Protocol Last Admin: 08/26/23 09:04 Dose: 1 patch Documented By: HEATHER Lorazepam (Lorazepam 2 Mg/Ml Vial) 1 mg IM ONCE PRN PRN Reason: preprocedure Last Admin: 08/22/23 10:34 Dose: 1 mg Documented By: SOURAV Melatonin (Melatonin 3 Mg Tablet) 6 mg PO BEDTIME PRN PRN Reason: Insomnia Last Admin: 08/26/23 20:23 Dose: 6 mg Documented By: DOMO Montelukast Sodium (Montelukast Sodium 10 Mg Tablet) 10 mg PO BEDTIME [facility] Last Admin: 08/26/23 20:23 Dose: 10 mg Documented By: DOMO Morphine Sulfate (Morphine Sulfate 2 Mg/Ml Cartridge) 2 mg IVPUSH Q4H PRN; Protocol PRN Reason: mod pain Last Admin: 08/27/23 05:41 Dose: 2 mg Documented By: DOMO Omeprazole (Omeprazole 20 Mg Capsule.) 20 mg PO BID [facility] Last Admin: 08/26/23 20:23 Dose: 20 mg Documented By: DOMO Ondansetron HCl (Ondansetron Hcl 4 Mg/2 Ml Vial) 4 mg IVPUSH Q8H PRN PRN Reason: Nausea and Vomiting Oxycodone HCl (Oxycodone Hcl Immed Release 5 Mg Tablet) 5 mg PO Q4H PRN PRN Reason: mod pain Last Admin: 08/24/23 23:28 Dose: 5 mg Documented By: ANGELA Sodium Chloride (0.9 % Sodium Chloride Flush 3 Ml Syringe) 3 ml IVFLUSH QSHIFT [facility] Last Admin: 08/26/23 20:23 Dose: 3 ml Documented By: DOMO Tiotropium [place] (Tiotropium [place] 2.5 Mcg 1 Puff/2.5 Mcg Mist.Inhal) 2 puff INHALE RDAILY [facility] Last Admin: 08/27/23 07:50 Dose: 2 puff Documented By: ARMANI Vitamin D (Cholecalciferol (Vitamin D3) 25 Mcg Tablet) 25 mcg PO DAILY [facility] Last Admin: 08/26/23 09:05 Dose: 25 mcg Documented By: HEATHER Labs 08/27/23 06:00 08/27/23 06:00 Labs: Laboratory Results - last 24 hr 08/27/23 06:00 MCV 96.2 MCH 31.0 MCHC 32.2 RDW 15.9 Plt Count 195 MPV 9.9 Absolute Nucleated RBC 0.000 Nucleated RBC % (auto) 0.0 Anion Gap 8 L Estim Creat Clear Calc 67.7 Estimated GFR > 60 Fasting Glucose 129 H Calcium 7.5 L Microbiology Microbiology Results: Microbiology 08/26/23 00:42 Blood Culture - Preliminary Blood - Venous Prelim: GPC Gram Stain only 08/26/23 00:42 Blood Culture - Preliminary Blood - Venous Prelim: GPC Gram Stain only 08/25/23 08:08 Blood Culture - Preliminary Blood - Central Line Gram positive cocci 08/25/23 07:49 Blood Culture - Preliminary Blood - Central Line Prelim: GPC Gram Stain only 08/24/23 15:08 Blood Culture - Preliminary Blood - Venous Gram positive cocci 08/24/23 15:08 Blood Culture - Preliminary Blood - Venous Prelim: GPC Gram Stain only Assessment and Plan (1) Bacteremia: Status: Acute Plan 73yo F with COPD, HCV, hx IDU, hx MRSA abscesses, hx Cdiff, hx E coli colitis, hx osteomyelitis of humerus/clavicle/scapula with MSSA bacteremia and treated at [facility] [place], chronic anemia recently admitted here 08/03/23 for anemia left AMA 08/14/23 despite fever concerning for infection found to have MRSA bacteremia and called back to hospital and re-admitted also found to have bilateral occlusive DVTs persistently bacteremic occlusive BLE DVTs started therapeutic enoxaparin 1 mg/kg 08/17. Vasc Surg consult, not a candidate for endovascular intervention given uncontrolled infection MRSA bacteremia vanco 08/15-08/17, dapto 08/17- [changed due to difficult phlebotomy- couldn't monitor troughs] TTE 08/16: - The left ventricular systolic function is normal. The calculated ejection fraction is 66% by biplane method. - There is moderate calcification of the aortic valve. - There is mild mitral annular calcification. - Mild pulmonary hypertension is present. - The tricuspid valve was not well visualized. Cannot exclude vegetation. - ID appreciated - BCx from 08/14, 08/15, 08/18, 08/23, 08/24, 08/25, 08/26 positive. Once clear, will need a PICC line for 6+ wk of IV ABX. hold off on ancef adjuvent as pcn allergy now with [facility] for access plan for wbc scan and kle today acute/chronic anemia - transfused 2u pRBCs last admission; scope revealed non-bleeding stomach ulcers and infectious colitis - transfused 1u pRBCs 08/16, H+H responded appropriately transfuse 1 unit 08/22 hypoNa, mild hypoMg - repleted wounds - Wound Care consulted last admission: Coccyx wound, unstageable > cleanse with normal saline, apply triad to periwound, lightly pack coccyx with Durafiber Ag cover with sacral foam dressing, daily Right arm AC, abrasion > cleanse with normal saline, apply skin prep to periwound, lightly packed with Durafiber Ag, cover with foam dressing, daily Left forearm> cleanse with normal saline, or cover scabbed area with hydrocolloid dressing, change every 3 days In addition, frequent turning/repositioning every 2 hours to offload bony prominences along with air loss mattress. COPD - continue Flovent + Spiriva, prn albuterol GERD - continue PPI mood disorder - clonazepam + zolpidem hx opioid abuse - met Recovery Team, denies use since 2000, attributes recent +Utox to pain meds received in hospital - HCV Ab+ - HBV immune from prior infection - HIV negative VTE ppx on full treatment with LMWH dispo - will need STR eventually for IV ABX reason for continued hospitalization:still bacteremic Total time managing care of this patient today: 45 minutes. Quality Stroke Does the patient have a stroke diagnosis?: No VTE Prior VTE?: No VTE Risk Level:: Medical - moderate - high VTE Device Contraindication: Treatment Not Indicated VTE Drug Contraindication: N/A - Med Ordered
[2023-08-27] MEDS: HYDROmorphone HCl 2 MG TABLET 1 MG PO ×2 (09:44→14:24)
[2023-08-27] MEDS: Ferrous Sulfate 324 MG TABLET.DR PO ×2 (09:44→20:27)
[2023-08-27] MEDS: Cholecalciferol (Vitamin D3) 25 MCG TABLET PO (09:44)
[2023-08-27] MEDS: Omeprazole 20 MG CAPSULE.DR PO ×2 (09:44→20:27)
[2023-08-27] MEDS: Lidocaine 4 % Patch ADH..PATCH 1 PATCH TRANSDERMA (09:45)
[2023-08-27] MEDS: 0.9 % Sodium Chloride Flush 3 ML SYRINGE IVFLUSH ×3 (09:45→20:27)
--- NOTE | 2023-08-27 10:41 | P.PNVS_ITS ---
Subjective Subjective Date of Service: 08/27/23 Patient reports: no new complaints and feels better Interval history: Patient seen and examined. Events over the past weekend noted. She has been transfused due to anemia. She is being maintained on Eliquis for her bilateral lower extremity DVTs. In general notes some swelling but no significant discomfort Physical Exam Vital Signs: Vital Signs: Last Vital Signs Temp 97.8 F 08/27/23 07:33 Pulse 82 08/27/23 07:53 Resp 16 08/27/23 07:53 BP 93/69 08/27/23 07:33 Pulse Ox 98 08/27/23 07:33 O2 Del Method Room Air 08/27/23 07:33 BMI result Body Mass Index 21.9 Const: General: cooperative, healthy appearing and comfortable Orientation/consciousness: oriented to person, oriented to place and oriented to time HEENT: Head: Yes normal to inspection Neck: Neck: Yes normal visual inspection Carotids: no bruits Chest: Chest palpation & inspection: normal inspection of the chest Resp: Effort & Inspection: normal respiratory effort and able to speak in complete sentences Auscultation: clear to auscultation bilaterally, no crackles, no rales, no rhonchi and no wheezes Cardio: Rate: regular rate Rhythm: regular rhythm Heart sounds: S1 normal heart sound present and S2 normal heart sound present Bruits: no carotid bruits Peripheral pulses: Peripheral pulses 2+ throughout GI: Inspection: Yes normal to inspection Skin: Wounds: no wounds Hair: normal Neuro: General: oriented to person, oriented to place and oriented to time Cranial nerves: Yes CN's II-XII intact bilaterally and Yes Normal hearing present Cognition (Neuro): normal cognition Motor exam (neuro): 5/5 motor strength present throughout Extrem: Other: venous exam: No significant superficial varicosities or spider telangiectasias, minimal edema General: No clubbing, No cyanosis and No edema Psych: Appearance: grossly normal Mental Status: mental status grossly normal Speech and movement: Normal speech and movement present Progress Note: A&P Assessment and plan (1) DVT (deep venous thrombosis): Status: Acute Assessment and Plan: In short patient has bilateral lower extremity DVTs on anticoagulation and has decreasing hemoglobin. Today's hemoglobin was actually 6.5. If patient has co ntinued bleeding while on anticoagulants may require IVC filter. Will discuss this with primary care team. Thank you for allowing us to assist in her care. Time Spent With Patient Time: Total time managing care of this patient today ____ minutes. Procedures Date of Service Date of Service: 08/27/23 Quality Stroke Does the patient have a stroke diagnosis?: No VTE Prior VTE?: No VTE Risk Level:: Medical - moderate - high VTE Device Contraindication: Treatment Not Indicated VTE Drug Contraindication: N/A - Med Ordered
--- NOTE | 2023-08-27 10:49 | PM.PNCARD ---
Subjective Subjective Date of Service: 08/27/23 Principal diagnosis: Recurrent MRSA bacteremia Interval history: Patient persists with recurrent gram-positive cocci noted on repeat blood culture from . Patient on appropriate antibiotic therapy. Unfortunate she has recurrent Imelda significantly anemic and has had prior gastric ulcers as well as lower GI bleeding. Unsure if she has active bleeding at current time, has received multiple transfusions this admission. Plan for WBC scan today. 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 NECK: no carotid bruit, right IJ triple-lumen catheter. Bruising over the upper chest. HEART: no murmurs, regular rate and rhythm. LUNGS: clear to auscultation bilaterally. ABDOMEN: soft, nontender. EXTREMITIES: no edema. PERIPHERAL PULSES: equal. NEUROLOGIC: Awake and alert. Following commands. Objective Labs and Meds 08/27/23 06:00 08/27/23 06:00 Lab results: Laboratory Results - last 24 hr 08/27/23 08/27/23 06:00 09:17 WBC 6.1 RBC 2.10 L Hgb 6.5 L* Hct 20.2 L* MCV 96.2 MCH 31.0 MCHC 32.2 RDW 15.9 Plt Count 195 MPV 9.9 Absolute Nucleated RBC 0.000 Nucleated RBC % (auto) 0.0 Sodium 131 L Potassium 3.5 Chloride 104 Carbon Dioxide 23 Anion Gap 8 L BUN 10 Creatinine 0.63 Estim Creat Clear Calc 67.7 Estimated GFR > 60 Fasting Glucose 129 H Calcium 7.5 L Blood Type AB Positive Antibody Screen NEGATIVE Crossmatch See Detail Progress Note: A&P Assessment and plan (1) Bacteremia: Status: Acute Assessment and Plan: Patient with recurrent MRSA bacteremia despite adequate antibiotic therapy. There is likelihood of endocarditis although she is high risk given her prior GI bleeding and gastric ulcers with recurrent dropped in hematocrit with severe anemia. Think she needs to be stabilized from medical perspective with more blood transfusions and a GI consultation and clearance prior to performing a NIC. This was discussed with the patient. Please let us know once patient is cleared to undergo NIC Time Spent With Patient Time: Total time managing care of this patient today ____ minutes. Progress Note: Quality Stroke Does the patient have a stroke diagnosis?: No Procedures Date of Service Date of Service: 08/27/23
--- NOTE | 2023-08-27 11:32 | MHC.CLN ---
F/U DIET REGULAR-APPROPRIATE. ENSURE MAX PROTEIN BID TO PROMOTE WOUND HEALING. SUPPLEMENT PROVIDES 300 KCALS, 60 G PROTEIN. PATIENT WITH UNSTAGEABLE AREA TO COCCYX. PO INTAKE CONTINUES VARIABLE, 25-100%. MONITOR PO INTAKE AND SUPPLEMENT ACCEPTANCE.
[2023-08-27] MEDS: DAPTOmycin 500 MG in 0.9 % Sodium Chloride 50 ML 120 MG IV (16:05)
[2023-08-27] MEDS: Montelukast Sodium 10 MG TABLET PO (20:27)
[2023-08-27] MEDS: Melatonin 3 MG TABLET 6 MG PO (20:27)
[2023-08-27] MEDS: oxyCODONE HCl Immed Release 5 MG TABLET PO (23:35)
[2023-08-27] MEDS: Acetaminophen 325 MG TABLET 650 MG PO (23:35)
--- NOTE | 2023-08-27 23:46 | P.PNID_ITS ---
Subjective Subjective Date of Service: 08/27/23 Critical Care Time (minutes): 15 Comment: she says leg feel better cant do NIC due to gastric ulcer still bacteremic Objective Data Labs 08/27/23 06:00 08/27/23 06:00 Labs: Laboratory Results - last 24 hr 08/25/23 08/27/23 08/27/23 05:23 06:00 09:17 WBC 6.1 RBC 2.10 L Hgb 6.5 L* Hct 20.2 L* MCV 96.2 MCH 31.0 MCHC 32.2 RDW 15.9 Plt Count 195 MPV 9.9 Absolute Nucleated RBC 0.000 Nucleated RBC % (auto) 0.0 Sodium 133 L 131 L Potassium 3.3 3.5 Chloride 106 104 Carbon Dioxide 24 23 Anion Gap 6 L 8 L BUN 10 10 Creatinine 0.64 0.63 Estim Creat Clear Calc 66.6 67.7 Estimated GFR > 60 > 60 Fasting Glucose 87 129 H Calcium 7.5 L 7.5 L Blood Type AB Positive Antibody Screen NEGATIVE Crossmatch See Detail Microbiology Microbiology Results: Microbiology 08/24/23 15:08 Blood - Venous Blood Culture - Final Methicillin Res Staph Aureus 08/24/23 15:08 Blood - Venous Blood Culture - Final Methicillin Res Staph Aureus 08/26/23 00:42 Blood - Venous Blood Culture - Final Methicillin Res Staph Aureus 08/26/23 00:42 Blood - Venous Blood Culture - Final Methicillin Res Staph Aureus 08/25/23 08:08 Blood - Central Line Blood Culture - Final Methicillin Res Staph Aureus 08/25/23 07:49 Blood - Central Line Blood Culture - Final Methicillin Res Staph Aureus 08/23/23 07:40 Blood - Central Line Blood Culture - Final Methicillin Res Staph Aureus 08/23/23 07:39 Blood - Central Line Blood Culture - Final Methicillin Res Staph Aureus 08/22/23 06:00 Blood - Venous Blood Culture - Final 08/22/23 06:00 Blood - Venous Blood Culture - Final 08/21/23 10:39 Blood - Venous Blood Culture - Final 08/21/23 10:39 Blood - Venous Blood Culture - Final 08/21/23 10:35 Blood - Venous Blood Culture - Final 08/21/23 10:35 Blood - Venous Blood Culture - Final 08/18/23 06:30 Blood - Venous Blood Culture - Final Methicillin Res Staph Aureus 08/18/23 06:30 Blood - Venous Blood Culture - Final Methicillin Res Staph Aureus 08/17/23 20:54 Urine clean catch - Clean Catch Midstream Urine Culture - Final 08/15/23 21:30 Blood - Venous Blood Culture - Final Methicillin Res Staph Aureus 08/15/23 21:30 Blood - Venous Blood Culture - Final Methicillin Res Staph Aureus Physical Exam 2 Vital Signs: Vital Signs: Last Vital Signs Temp 98.8 F 08/27/23 20:00 Pulse 91 08/27/23 20:14 Resp 18 08/27/23 20:14 BP 127/59 L 08/27/23 20:00 Pulse Ox 98 08/27/23 20:00 O2 Del Method Room Air 08/27/23 20:00 BMI result Body Mass Index 21.9 Extrem: Other: mild erythema lower extremities Assessment and Plan Assessment and plan (1) DVT (deep venous thrombosis): Problem details: May be infected DVTs ?surgical removal clot ?tricuspid vegetation Persistent bacteremia Status: Acute Assessment and Plan: Continue Daptomycin 8 mg/kg/d Tagged WBC appropriate,pending (2) Bacteremia: Problem details: MRSA bacteremia Failure to clear Possible skin source Check tagged WBC scan. Add Kefzol for five days. Not able to do NIC. Continue Daptomycin six weeks first negative blood culture. Status: Acute Time Spent With Patient Time: Total time managing care of this patient today ____ minutes.
[2023-08-28] VITALS (9 sets, daily range): BP systolic 100–121; BP diastolic 53–60; PULSE 83–92; RESP 16–28; TEMP 36.2–37.2; O2SAT 94–99
[2023-08-28] MEDS: Morphine Sulfate 2 MG/ML CARTRIDGE IVPUSH ×5 (02:51→20:40)
[2023-08-28] MEDS: Enoxaparin Sodium 60 MG/0.6 ML SYRINGE SUBCUT ×2 (06:19→19:54)
[2023-08-28 06:37] LABS: Hematocrit 23.3 % (37.0-47.0); Hemoglobin 7.6 g/dl (12.0-16.0); Mean Corpuscular HGB Conc 32.6 g/dl (31.0-35.0); Mean Corpuscular Hemoglobin 31.8 pg (27.0-33.0); Mean Corpuscular Volume 97.5 fL (80.0-98.0); Mean Platelet Volume 10.1 fL (9.4-12.3); Platelet Count 218 X10*3/uL (160-400); Red Blood Count 2.39 X10*6/uL (4.20-5.50); Red Cell Distribution Width 15.6 % (11.0-16.0); White Blood Count 6.3 X10*3/uL (4.8-10.8)
[2023-08-28 06:38] LABS: Anion Gap 9 (12-20); Blood Urea Nitrogen 11 mg/dL (9-16); Calcium 7.6 mg/dL (8.4-10.2); Carbon Dioxide 23 mmol/L (22-29); Chloride 104 mmol/L (96-108); Creatinine Clr Calc Pharmacy 66.6; Estimated Glomerular Filt Rate > 60; Glucose Fasting 113 mg/dL (60-99); Potassium 3.8 mmol/L (3.3-5.1); Sodium 132 mmol/L (135-145)
[2023-08-28] MEDS: Lidocaine 4 % Patch ADH..PATCH 1 PATCH TRANSDERMA (07:37)
[2023-08-28] MEDS: Acetaminophen 325 MG TABLET 650 MG PO (07:38)
[2023-08-28] MEDS: Omeprazole 20 MG CAPSULE.DR PO ×2 (07:38→19:54)
[2023-08-28] MEDS: Ferrous Sulfate 324 MG TABLET.DR PO ×2 (07:39→19:54)
[2023-08-28] MEDS: Cholecalciferol (Vitamin D3) 25 MCG TABLET PO (07:39)
[2023-08-28] MEDS: 0.9 % Sodium Chloride Flush 3 ML SYRINGE IVFLUSH ×3 (07:41→19:54)
[2023-08-28] MEDS: Tiotropium Bromide 2.5 mcg 1 PUFF/2.5 MCG MIST.INHAL 2 PUFF INHALE (07:57)
[2023-08-28] MEDS: Fluticasone Propionate 250 MCG BLST.W.DEV 1 PUFF INHALE ×2 (07:57→19:33)
--- NOTE | 2023-08-28 09:08 | P.PNIM_ITS ---
Subjective Subjective Date of Service: 08/28/23 Interval History: no new complaints Physical Exam 2 Vital Signs: Vital Signs: Last Vital Signs Temp 97.6 F 08/28/23 07:15 Pulse 86 08/28/23 07:58 Resp 16 08/28/23 07:58 BP 110/56 L 08/28/23 07:15 Pulse Ox 94 08/28/23 07:15 O2 Del Method Room Air 08/28/23 07:15 BMI result Body Mass Index 21.9 alert, oriented times 3, lungs clear, echymosis over upper chest, bilateral lower exremity edema, TLC in place Objective Data Active Medications Acetaminophen (Acetaminophen 325 Mg Tablet) 650 mg PO Q6H PRN PRN Reason: Pain, Mild (Pain Scale 1-3) Last Admin: 08/28/23 07:38 Dose: 650 mg Documented By: HENRIK Albuterol Sulfate (Albuterol Sulfate 90 Mcg 8 Gm Inhaler) 2 puff INHALE Q4H PRN PRN Reason: Shortness Of Breath Or Wheezing Enoxaparin Sodium (Enoxaparin Sodium 60 Mg/0.6 Ml Syringe) 60 mg 1 mg/kg (60 mg) SUBCUT Q12H [facility] Last Admin: 08/28/23 06:19 Dose: 60 mg Documented By: DOMO Ferrous Sulfate (Ferrous Sulfate 324 Mg Tablet.Dr) 324 mg PO BID [facility] Last Admin: 08/28/23 07:39 Dose: 324 mg Documented By: HENRIK Fluticasone Propionate (Fluticasone Propionate 250 Mcg Blst.W.Dev) 1 puff INHALE RBID [facility] Last Admin: 08/28/23 07:57 Dose: 1 puff Documented By: WILFRID Hydromorphone HCl (Hydromorphone Hcl 2 Mg Tablet) 1 mg PO Q3H PRN PRN Reason: mod pain Last Admin: 08/27/23 14:24 Dose: 1 mg Documented By: HENRIK Daptomycin 500 mg/ Sodium (Chloride) 60 mls @ 120 mls/hr IV Q24H [facility] Last Infusion: 08/27/23 17:01 Dose: Infused Documented By: HENRIK Lidocaine (Lidocaine 4 % Patch Adh..Patch) 1 patch TRANSDERMA DAILY [facility]; Protocol Last Admin: 08/28/23 07:37 Dose: 1 patch Documented By: HENRIK Lorazepam (Lorazepam 2 Mg/Ml Vial) 1 mg IM ONCE PRN PRN Reason: preprocedure Last Admin: 08/22/23 10:34 Dose: 1 mg Documented By: SOURAV Melatonin (Melatonin 3 Mg Tablet) 6 mg PO BEDTIME PRN PRN Reason: Insomnia Last Admin: 08/27/23 20:27 Dose: 6 mg Documented By: DOMO Montelukast Sodium (Montelukast Sodium 10 Mg Tablet) 10 mg PO BEDTIME [facility] Last Admin: 08/27/23 20:27 Dose: 10 mg Documented By: DOMO Morphine Sulfate (Morphine Sulfate 2 Mg/Ml Cartridge) 2 mg IVPUSH Q4H PRN; Protocol PRN Reason: mod pain Last Admin: 08/28/23 07:39 Dose: 2 mg Documented By: HENRIK Omeprazole (Omeprazole 20 Mg Capsule.Dr) 20 mg PO BID [facility] Last Admin: 08/28/23 07:38 Dose: 20 mg Documented By: HENRIK Ondansetron HCl (Ondansetron Hcl 4 Mg/2 Ml Vial) 4 mg IVPUSH Q8H PRN PRN Reason: Nausea and Vomiting Oxycodone HCl (Oxycodone Hcl Immed Release 5 Mg Tablet) 5 mg PO Q4H PRN PRN Reason: mod pain Last Admin: 08/27/23 23:35 Dose: 5 mg Documented By: DOMO Sodium Chloride (0.9 % Sodium Chloride Flush 3 Ml Syringe) 3 ml IVFLUSH QSHIFT [facility] Last Admin: 08/28/23 07:41 Dose: 3 ml Documented By: HENRIK Tiotropium [place] (Tiotropium [place] 2.5 Mcg 1 Puff/2.5 Mcg Mist.Inhal) 2 puff INHALE RDAILY [facility] Last Admin: 08/28/23 07:57 Dose: 2 puff Documented By: WILFRID Vitamin D (Cholecalciferol (Vitamin D3) 25 Mcg Tablet) 25 mcg PO DAILY [facility] Last Admin: 08/28/23 07:39 Dose: 25 mcg Documented By: HENRIK Labs 08/28/23 05:40 08/28/23 05:40 Labs: Laboratory Results - last 24 hr 08/25/23 08/27/2323 05:23 09:17 05:40 MCV 97.5 MCH 31.8 MCHC 32.6 RDW 15.6 Plt Count 218 MPV 10.1 Absolute Nucleated RBC 0.000 Nucleated RBC % (auto) 0.0 Hold Purple Top Hold Blue Top Anion Gap 6 L 9 L Estim Creat Clear Calc 66.6 66.6 Estimated GFR > 60 > 60 Fasting Glucose 87 113 H Calcium 7.5 L 7.6 L Hold Red Top Hold Yellow Top Blood Type AB Positive Antibody Screen NEGATIVE Crossmatch See Detail 08/28/23 08:34 MCV MCH MCHC RDW Plt Count MPV Absolute Nucleated RBC Nucleated RBC % (auto) Hold Purple Top SEE NOTE Hold Blue Top SEE NOTE Anion Gap Estim Creat Clear Calc Estimated GFR Fasting Glucose Calcium Hold Red Top See Note Hold Yellow Top See Note Blood Type Antibody Screen Crossmatch Microbiology Microbiology Results: Microbiology 08/24/23 15:08 Blood Culture - Final Blood - Venous Methicillin Res Staph Aureus 08/24/23 15:08 Blood Culture - Final Blood - Venous Methicillin Res Staph Aureus 08/26/23 00:42 Blood Culture - Final Blood - Venous Methicillin Res Staph Aureus 08/26/23 00:42 Blood Culture - Final Blood - Venous Methicillin Res Staph Aureus 08/25/23 08:08 Blood Culture - Final Blood - Central Line Methicillin Res Staph Aureus 08/25/23 07:49 Blood Culture - Final Blood - Central Line Methicillin Res Staph Aureus Assessment and Plan (1) Bacteremia: Status: Acute Plan 73yo F with COPD, HCV, hx IDU, hx MRSA abscesses, hx Cdiff, hx E coli colitis, hx osteomyelitis of humerus/clavicle/scapula with MSSA bacteremia and treated at [facility] [place], chronic anemia recently admitted here 08/03/23 for anemia left AMA 08/14/23 despite fever concerning for infection found to have MRSA bacteremia and called back to hospital and re-admitted also found to have bilateral occlusive DVTs persistently bacteremic occlusive BLE DVTs started therapeutic enoxaparin 1 mg/kg 08/17. Vasc Surg consult, not a candidate for endovascular intervention given uncontrolled infection not candidate for IVC filter given bacteremia, no gross or unstable bleed, will continue AC and transfuse as needed MRSA bacteremia vanco 08/15-08/17, dapto 08/17- [changed due to difficult phlebotomy- couldn't monitor troughs] TTE 08/16: - The left ventricular systolic function is normal. The calculated ejection fraction is 66% by biplane method. - There is moderate calcification of the aortic valve. - There is mild mitral annular calcification. - Mild pulmonary hypertension is present. - The tricuspid valve was not well visualized. Cannot exclude vegetation. - ID appreciated - BCx from 08/14, 08/15, 08/18, 08/23, 08/24, 08/25, 08/26 positive. 08/28 pending Once clear, will need a PICC line for 6+ wk of IV ABX. hold off on ancef adjuvent as pcn allergy now with TLC for access/blood draws unable to do NIC given gastric ulcer s/p wbc scan 08/27, follow up result acute/chronic anemia - transfused 2u pRBCs last admission; scope revealed non-bleeding stomach ulcers and infectious colitis - transfused 1u pRBCs 08/16, H+H responded appropriately transfused 1 unit 08/22 continue ppi, transfuse as needed, no gross bleeding hypoNa, mild hypoMg - repleted wounds - Wound Care consulted last admission: Coccyx wound, unstageable > cleanse with normal saline, apply triad to periwound, lightly pack coccyx with Durafiber Ag cover with sacral foam dressing, daily Right arm AC, abrasion > cleanse with normal saline, apply skin prep to periwound, lightly packed with Durafiber Ag, cover with foam dressing, daily Left forearm> cleanse with normal saline, or cover scabbed area with hydrocolloid dressing, change every 3 days In addition, frequent turning/repositioning every 2 hours to offload bony prominences along with air loss mattress. COPD - continue Flovent + Spiriva, prn albuterol GERD - continue PPI mood disorder - clonazepam + zolpidem hx opioid abuse - met Recovery Team, denies use since 2000, attributes recent +Utox to pain meds received in hospital - HCV Ab+, viral load negative - HBV immune from prior infection - HIV negative VTE ppx on full treatment with LMWH dispo - will need STR eventually for IV ABX reason for continued hospitalization:still bacteremic Total time managing care of this patient today: 45 minutes. Quality Stroke Does the patient have a stroke diagnosis?: No VTE Prior VTE?: No VTE Risk Level:: Medical - moderate - high VTE Device Contraindication: Treatment Not Indicated VTE Drug Contraindication: N/A - Med Ordered
[2023-08-28] MEDS: HYDROmorphone HCl 2 MG TABLET 1 MG PO (11:22)
--- NOTE | 2023-08-28 12:53 | HO.WOUND ---
Wound Consult: Initial 73yr old female admitted to [facility] on? 08/15/23 22:20- See progress notes and H&P for detailed history. Arrival to bedside patient is agreeable to assessment and photo upload. She reports she has followed in the wound clinic in the past but no recently. See progress notes for details. Sacrum 08/21/23 Sacrum Etiology: Unstageable Pressure Injury - Present on Admission Measurements: see chart for detailed measurements Wound Bed: adherent moist yellow white slough Drainage / Odor: Scant cole yellow drainage - no odor noted Edges: ? Macerated and defined Silvia wound: ? Macerated -moist with blanchable erythema No Induration, No Fluctuance, No Warmth Pain: Pain reported Goals of Treatment: ? Moist wound healing and autolytic debridement Left Forearm Etiology: Resurfaced - Intact tissue - Hydrocolloid removed no dressing needed at this time. 08/21/23 Right AC / Arm site Etiology: Nonhealing wound Measurements: see chart for detailed measurements - significant decrease in size noted - see photo above Wound Bed: Red clean moist tissue Drainage / Odor: yellow drainage on dressing Edges: Epibole and scarring noted Silvia wound: Intact ? No Induration, No Fluctuance, No Erythema, No Warmth Pain: Pain reported Goals of Treatment: ? Moist wound healing and autolytic debridement with Durafiber AG Recommendations: 1. Turn and Reposition every 2 hours and as needed for patient comfort consider use of wedges available in the storeroom. 2. Off Load all bony prominences with use of pillows, wedges and heel boots. 3. Monitor for incontinence and moisture control. 4. Provide adequate and supplemental nutrition. 5. Continue low air loss mattress. 6.Coccyx - Off Load Pressure - Cleanse with normal saline and pat dry. ?Apply Triad to silvia-wound, lightly pack coccyx with Durafiber AG cover with sacral foam dressing. ?Change Daily or as needed for soiling. 7. Right Arm AC - Cleanse with normal saline and pat dry. ?Apply skin prep to silvia-wound, lightly pack with Durafiber AG cover with foam dressing. ?Change Daily. Re-consult wound care Nurse for wound deterioration or wound changes.
--- NOTE | 2023-08-28 13:07 | P.CNGI_ITS ---
History of Present Illness Data of Consult Service Date: 08/28/23 Requesting physician: Joshua Begum Primary Care Provider: Karla Ceballos MD HPI Reason for consult: anemia 73-year-old female with a PMH significant for?COPD, hepatitis C, IV drug use, history of?MRSA abscesses,?history of c dif, history E. coli colitis, osteomyelitis of the humerus, clavicle, and scapula with MSSA bacteremia in June of 2023 and was treated with correction Abx?at [facility] who I am seeing for assessment for anemia. Patient was admitted 08/15/23 after having fever and lower back pain around her sacral decubitus ulcer and pos blood cultures for staph. During stay she has been noted to have anemia and required intermittent transfusions. she denies over Gi bleeding, melena, nose bleeds, epistaxis or hematuria. She has bruising on her neck area from central line insertion. She did have EGD and sigmoidoscopy for acute blood loss anemia -08/1423 and these revealed non bleeding stomach ulcers and multiple sigmoid ulcers as well. Her main complaint is severe sharp pain from her sacral ulcer going into her back and legs and worse with movement, she also has bilateral DVT and recieivng treatment dos elovenox and is being worked up for possible endocarditis. Cardiology was worried about safety of NIC in setting of gastric ulcers. Review of Systems 2 Review of Systems: Constitutional : No Weight loss, No Fever, No Chills ENT/Mouth : No sore throat, No Rhinorrhea Eyes: No Swelling, No Redness Cardiovascular : No Chest Pain, No SOB, No Edema Respiratory : No Cough, No Sputum, No Wheezing Gastrointestinal : see HPI Genitourinary : NO Dysuria, No Urinary Frequency, No Hematuria, No Urgency Musculoskeletal : + joint pain, No Myalgias, No Joint Swelling Skin : + old injection ken, scarring on arms, bruise on chest Neuro : No Weakness, No Numbness, No Dizziness, No Headache Psych : No Anxiety/Panic, No Depression Heme/Lymph: No Bruising, No Lymphadenopathy Endocrine : No Polyuria, No Polydipsia All other systems reviewed and are negative. [facility] Past Medical History Medical History Left against medical advice Bacteremia Chronic anemia MRSA cellulitis Asthma Legally blind Family History Pertinent family history: No Fh of CRC or ulcers Social History Social History Household Members: Friend(s) Housing: Homeless Do you presently have visiting nurse or other home services: Yes Unable to assess alcohol history related to: Unknown Alcohol intake: former Patient Tobacco Use Status: Never used Tobacco Smoked in Last 30 Days: No e-Cigarette/Vaping Use: Former Use Second Hand Smoke Exposure: No Use of substances other than those prescribed or required for medical reasons: No Substance Use Type: Former Substance User Currently Displaying Signs/Symptoms of Drug Intoxication Withdrawal: No Other Past Substance Use Problem:: history of use Any prior treatment program specific to substance use: No Have you been hit, kicked, punched, or otherwise hurt by someone within the past year? If so, by whom?: No Do you feel safe in your current relationship?: No Current Relationship Is there a partner from a previous relationship who is making you feel unsafe now?: No Are you made to feel afraid or neglected: No Advance Directives: No Advance Directives on File: No Do you have thoughts of harming others: None Do you have a plan to hurt others: No Plan Recently lost weight without trying: No Eating poorly because of decreased appetite: No Nutrition Risks: No Nutritional Risk Patient : No : No Poor oral hygiene: No service: No Meds Allergies Allergy/AdvReac Type Severity Reaction Status Date / Time cephalexin [From Keflex] Allergy Severe HIVES Verified 08/15/23 19:19 clindamycin [Clindamycin] Allergy Severe HIVES Verified 08/15/23 19:19 doxycycline [Doxycycline] Allergy Severe HIVES Verified 08/15/23 19:19 erythromycin base Allergy Severe HIVES Verified 08/15/23 19:20 [Erythromycin Base] levofloxacin [From Levaquin] Allergy Severe THROAT Verified 08/15/23 19:19 TIGHTENS nitrofurantoin Allergy Severe HIVES Verified 08/15/23 19:19 [From Macrobid] Penicillins Allergy Severe HIVES Verified 08/15/23 19:19 aspirin Allergy Unknown Hives Verified 08/15/23 19:19 linezolid [From ZYVOX] Allergy Unknown UNKNOWN Verified 08/15/23 19:19 Sulfa (Sulfonamide Allergy Unknown HIVES Verified 08/15/23 19:19 Antibiotics) [SULFA (SULFONAMIDE ANTIBIOTICS)] sulfacetamide Allergy Unknown Hives Verified 08/15/23 19:19 Erythromycin Allergy Unknown Hives Uncoded 04/22/23 06:01 seafood/shellfish Allergy Unknown Facial Uncoded 04/22/23 06:01 Swelling Sulfacet-R Allergy Unknown Hives Uncoded 04/22/23 06:01 Active Medications: Current Medications Acetaminophen (Acetaminophen 325 Mg Tablet) 650 mg PO Q6H PRN PRN Reason: Pain, Mild (Pain Scale 1-3) Last Admin: 08/28/23 07:38 Dose: 650 mg Albuterol Sulfate (Albuterol Sulfate 90 Mcg 8 Gm Inhaler) 2 puff INHALE Q4H PRN PRN Reason: Shortness Of Breath Or Wheezing Enoxaparin Sodium (Enoxaparin Sodium 60 Mg/0.6 Ml Syringe) 60 mg 1 mg/kg (60 mg) SUBCUT Q12H [facility] Last Admin: 08/28/23 06:19 Dose: 60 mg Ferrous Sulfate (Ferrous Sulfate 324 Mg Tablet.Dr) 324 mg PO BID [facility] Last Admin: 08/28/23 07:39 Dose: 324 mg Fluticasone Propionate (Fluticasone Propionate 250 Mcg Blst.W.Dev) 1 puff INHALE RBID [facility] Last Admin: 08/28/23 07:57 Dose: 1 puff Hydromorphone HCl (Hydromorphone Hcl 2 Mg Tablet) 1 mg PO Q3H PRN PRN Reason: mod pain Last Admin: 08/28/23 11:22 Dose: 1 mg Daptomycin 500 mg/ Sodium (Chloride) 60 mls @ 120 mls/hr IV Q24H [facility] Last Infusion: 08/27/23 17:01 Dose: Infused Lidocaine (Lidocaine 4 % Patch Adh..Patch) 1 patch TRANSDERMA DAILY [facility]; Protocol Last Admin: 08/28/23 07:37 Dose: 1 patch Lorazepam (Lorazepam 2 Mg/Ml Vial) 1 mg IM ONCE PRN PRN Reason: preprocedure Last Admin: 08/22/23 10:34 Dose: 1 mg Melatonin (Melatonin 3 Mg Tablet) 6 mg PO BEDTIME PRN PRN Reason: Insomnia Last Admin: 08/27/23 20:27 Dose: 6 mg Montelukast Sodium (Montelukast Sodium 10 Mg Tablet) 10 mg PO BEDTIME [facility] Last Admin: 08/27/23 20:27 Dose: 10 mg Morphine Sulfate (Morphine Sulfate 2 Mg/Ml Cartridge) 2 mg IVPUSH Q4H PRN; Protocol PRN Reason: mod pain Last Admin: 08/28/23 12:22 Dose: 2 mg Omeprazole (Omeprazole 20 Mg Capsule.Dr) 20 mg PO BID [facility] Last Admin: 08/28/23 07:38 Dose: 20 mg Ondansetron HCl (Ondansetron Hcl 4 Mg/2 Ml Vial) 4 mg IVPUSH Q8H PRN PRN Reason: Nausea and Vomiting Oxycodone HCl (Oxycodone Hcl Immed Release 5 Mg Tablet) 5 mg PO Q4H PRN PRN Reason: mod pain Last Admin: 08/27/23 23:35 Dose: 5 mg Sodium Chloride (0.9 % Sodium Chloride Flush 3 Ml Syringe) 3 ml IVFLUSH QSHIFT [facility] Last Admin: 08/28/23 07:41 Dose: 3 ml Tiotropium [place] (Tiotropium [place] 2.5 Mcg 1 Puff/2.5 Mcg Mist.Inhal) 2 puff INHALE RDAILY [facility] Last Admin: 08/28/23 07:57 Dose: 2 puff Vitamin D (Cholecalciferol (Vitamin D3) 25 Mcg Tablet) 25 mcg PO DAILY [facility] Last Admin: 08/28/23 07:39 Dose: 25 mcg Home Medications Medication Instructions Recorded Confirmed Last Taken Type albuterol sulfate 2.5 mg/3 mL 2.5 mg inhalation Q4H PRN 08/03/23 08/15/23 Unknown History (0.083 %) solution for nebulization Shortness Of Breath Or Wheezing albuterol sulfate 90 mcg/actuation 2 puff inhalation Q4-6H PRN 08/03/23 08/15/23 Unknown History aerosol inhaler Shortness Of Breath Or Wheezing cholecalciferol (vitamin D3) 25 25 mcg PO DAILY 08/03/23 08/15/23 Unknown History mcg (1,000 unit) tablet clonazepam 1 mg tablet 1 mg PO BEDTIME PRN Anxiety 08/03/23 08/15/23 Unknown History ferrous sulfate 325 mg (65 mg 325 mg PO BID 08/03/23 08/15/23 Unknown History iron) tablet,delayed release fluticasone propionate 220 1 puff inhalation BID 08/03/23 08/15/23 Unknown History mcg/actuation HFA aerosol inhaler (Flovent HFA) montelukast 10 mg tablet 10 mg PO DAILY 08/03/23 08/15/23 Unknown History omeprazole 20 mg capsule,delayed 20 mg PO BID 08/03/23 08/15/23 Unknown History release tiotropium bromide 18 mcg capsule 1 cap inhalation DAILY 08/03/23 08/15/23 Unknown History with inhalation device (Spiriva with HandiHaler) zolpidem 5 mg tablet 5 mg PO BEDTIME PRN Insomnia 08/03/23 08/15/23 Unknown History Physical Exam 2 Vital Signs: Vital Signs: Last Vital Signs Temp 97.6 F 08/28/23 07:15 Pulse 86 08/28/23 07:58 Resp 16 08/28/23 12:22 BP 110/56 L 08/28/23 07:15 Pulse Ox 94 08/28/23 07:15 O2 Del Method Room Air 08/28/23 07:15 BMI result Body Mass Index 21.9 EXAM: GENERAL: The patient is frail, weak, scars on skin VITAL SIGNS:see workflow HEENT: Nonicteric sclerae, PERRLA, EOMI. Oropharynx clear. Moist mucous membranes. Conjunctivae appear pallor . No thyroid mass. CHEST: Chest wall is nontender. HEART: Regular rate and rhythm without murmurs. LUNGS: Clear to auscultation bilaterally. ABDOMEN: Soft, positive bowel sounds, nontender, no organomegaly.no flank tenderness RECTAL: dressing n sacral wound SKIN: No rash, no excessive bruising, petechiae, or purpura. NEUROLOGIC: Cranial nerves II-XII intact without motor/sensory deficit. Psych: Appearance: grossly normal Results Labs 08/28/23 05:40 08/28/23 05:40 Labs: Short CBC 08/28/23 Range/Units 05:40 WBC 6.3 (4.8-10.8) X10*3/uL Hgb 7.6 L (12.0-16.0) g/dl Hct 23.3 L (37.0-47.0) % Plt Count 218 (160-400) X10*3/uL BMP 08/28/23 05:40 Sodium 132 L Potassium 3.8 Chloride 104 Carbon Dioxide 23 BUN 11 Creatinine 0.64 Calcium 7.6 L Microbiology Microbiology Results: Microbiology 08/24/23 15:08 Blood - Venous Blood Culture - Final Methicillin Res Staph Aureus 08/24/23 15:08 Blood - Venous Blood Culture - Final Methicillin Res Staph Aureus 08/26/23 00:42 Blood - Venous Blood Culture - Final Methicillin Res Staph Aureus 08/26/23 00:42 Blood - Venous Blood Culture - Final Methicillin Res Staph Aureus 08/25/23 08:08 Blood - Central Line Blood Culture - Final Methicillin Res Staph Aureus 08/25/23 07:49 Blood - Central Line Blood Culture - Final Methicillin Res Staph Aureus 08/23/23 07:40 Blood - Central Line Blood Culture - Final Methicillin Res Staph Aureus 08/23/23 07:39 Blood - Central Line Blood Culture - Final Methicillin Res Staph Aureus 08/22/23 06:00 Blood - Venous Blood Culture - Final 08/22/23 06:00 Blood - Venous Blood Culture - Final 08/21/23 10:39 Blood - Venous Blood Culture - Final 08/21/23 10:39 Blood - Venous Blood Culture - Final 08/21/23 10:35 Blood - Venous Blood Culture - Final 08/21/23 10:35 Blood - Venous Blood Culture - Final 08/18/23 06:30 Blood - Venous Blood Culture - Final Methicillin Res Staph Aureus 08/18/23 06:30 Blood - Venous Blood Culture - Final Methicillin Res Staph Aureus 08/17/23 20:54 Urine clean catch - Clean Catch Midstream Urine Culture - Final 08/15/23 21:30 Blood - Venous Blood Culture - Final Methicillin Res Staph Aureus 08/15/23 21:30 Blood - Venous Blood Culture - Final Methicillin Res Staph Aureus Assessment and Plan (1) Anemia: Qualifiers: Anemia type: other cause Other causes of anemia: chronic disease, other Qualified Code(s): D63.8 - Anemia in other chronic diseases classified elsewhere Status: Acute Plan 1/ Anemia, multiple causes incl nutritional, metabolic, anemia of chronic disease, possibly some blood loss as well. No overt GI bleeding at this time. hemolysis also possible Ulcers seen on sigmoidoscopy prob from ischemia less likely CMV colitis PLAN: 1/Ok to have NIC as stomach ulcers are distal to the area where NIC would be used. 2/ Rept EGD and colonoscopy on , can have clears tomorrow and prep, hold lovenox day of procedure 3/ check hemolysis screen, iron, b12 and folate, daily testing 4/ HIV already checked and was negative Procedures Date of Service Date of Service: 08/28/23
[2023-08-28] MEDS: DAPTOmycin 500 MG in 0.9 % Sodium Chloride 50 ML 120 MG IV (16:39)
[2023-08-28] MEDS: Montelukast Sodium 10 MG TABLET PO (19:54)
[2023-08-29] MEDS: Morphine Sulfate 2 MG/ML CARTRIDGE IVPUSH ×6 (00:33→21:25)
[2023-08-29] MEDS: Melatonin 3 MG TABLET 6 MG PO ×2 (00:33→21:25)
[2023-08-29 03:00] VITALS: BP 112/57; PULSE 87; RESP 17; TEMP 36.7; O2SAT 97
[2023-08-29] MEDS: Enoxaparin Sodium 60 MG/0.6 ML SYRINGE SUBCUT ×2 (06:26→20:08)
[2023-08-29 06:30] LABS: Alanine Aminotransferase 9 U/L (0-31); Albumin Level 1.6 g/dL (3.5-5.0); Alkaline Phosphatase 179 U/L (39-117); Anion Gap 10 (12-20); Aspartate Amino Transferase 9 U/L (5-31); Bilirubin Direct 0.2 mg/dL (0.0-0.5); Bilirubin Total 0.4 mg/dL (0.0-1.0); Blood Urea Nitrogen 12 mg/dL (9-16); Calcium 7.8 mg/dL (8.4-10.2); Carbon Dioxide 26 mmol/L (22-29); Chloride 104 mmol/L (96-108); Creatinine Clr Calc Pharmacy 65.6; Estimated Glomerular Filt Rate > 60; Glucose Fasting 83 mg/dL (60-99); Potassium 3.7 mmol/L (3.3-5.1); Sodium 136 mmol/L (135-145); Total Protein 6.3 g/dL (6.5-8.0)
[2023-08-29 06:33] LABS: Hematocrit 26.9 % (37.0-47.0); Hemoglobin 8.9 g/dl (12.0-16.0); Mean Corpuscular HGB Conc 33.1 g/dl (31.0-35.0); Mean Corpuscular Hemoglobin 31.4 pg (27.0-33.0); Mean Corpuscular Volume 95.1 fL (80.0-98.0); Mean Platelet Volume 9.8 fL (9.4-12.3); Platelet Count 247 X10*3/uL (160-400); Red Blood Count 2.83 X10*6/uL (4.20-5.50); Red Cell Distribution Width 15.1 % (11.0-16.0); White Blood Count 6.7 X10*3/uL (4.8-10.8)
[2023-08-29 07:29] VITALS: BP 130/61; PULSE 80; RESP 16; TEMP 36.4; O2SAT 95
[2023-08-29] MEDS: Tiotropium Bromide 2.5 mcg 1 PUFF/2.5 MCG MIST.INHAL 2 PUFF INHALE (07:34)
[2023-08-29] MEDS: Fluticasone Propionate 250 MCG BLST.W.DEV 1 PUFF INHALE (07:34)
[2023-08-29 07:36] VITALS: PULSE 80; RESP 18; O2SAT 95
[2023-08-29] MEDS: Cholecalciferol (Vitamin D3) 25 MCG TABLET PO (07:54)
[2023-08-29] MEDS: Omeprazole 20 MG CAPSULE.DR PO ×2 (07:54→20:08)
[2023-08-29] MEDS: Ferrous Sulfate 324 MG TABLET.DR PO ×2 (07:54→20:08)
[2023-08-29] MEDS: 0.9 % Sodium Chloride Flush 3 ML SYRINGE IVFLUSH ×3 (07:55→20:10)
--- NOTE | 2023-08-29 08:40 | MHC.SHP ---
Pre-Procedural Eval Section A Date of Service: 08/29/23 The patient is an INPATIENT: Yes Changes since office visit: Yes Patient answered all questions; No Cold of Flu in the past 2 weeks, No New Medical Problems and No Changes in Medication The History & Physical has been completed within 30 days and I have reviewed it.: Yes Section B Chief Complaint: staph bacteremia Allergies: Allergies Allergy/AdvReac Type Severity Reaction Status Date / Time cephalexin [From Keflex] Allergy Severe HIVES Verified 08/15/23 19:19 clindamycin [Clindamycin] Allergy Severe HIVES Verified 08/15/23 19:19 doxycycline [Doxycycline] Allergy Severe HIVES Verified 08/15/23 19:19 erythromycin base Allergy Severe HIVES Verified 08/15/23 19:20 [Erythromycin Base] levofloxacin [From Levaquin] Allergy Severe THROAT Verified 08/15/23 19:19 TIGHTENS nitrofurantoin Allergy Severe HIVES Verified 08/15/23 19:19 [From Macrobid] Penicillins Allergy Severe HIVES Verified 08/15/23 19:19 aspirin Allergy Unknown Hives Verified 08/15/23 19:19 linezolid [From ZYVOX] Allergy Unknown UNKNOWN Verified 08/15/23 19:19 Sulfa (Sulfonamide Allergy Unknown HIVES Verified 08/15/23 19:19 Antibiotics) [SULFA (SULFONAMIDE ANTIBIOTICS)] sulfacetamide Allergy Unknown Hives Verified 08/15/23 19:19 Erythromycin Allergy Unknown Hives Uncoded 04/22/23 06:01 seafood/shellfish Allergy Unknown Facial Uncoded 04/22/23 06:01 Swelling Sulfacet-R Allergy Unknown Hives Uncoded 04/22/23 06:01 Plan I have reviewed the history and physical and performed a pertinent physical examination on my patient. No changes have occurred unless specified. Time Spent With Patient Time: Total time managing care of this patient today ____ minutes.
--- NOTE | 2023-08-29 10:05 | HO.ANESPROP2 ---
Documented by User: Tere Anna 08/29/23 10:07 HPI - Anesthesia Eval Consult details Narrative: 73 yo F with history of IVDU, HCV, COPD, DVT, and multiple recurrent infections admitted with MRSA bacteremia. [facility] Past Medical History Medical History Left against medical advice Bacteremia Chronic anemia MRSA cellulitis Asthma Legally blind Family History Family history of problems with anesthesia: No Surgical History History of Problems with Anesthesia: No Social History Social History Household Members: Friend(s) Housing: Homeless Do you presently have visiting nurse or other home services: Yes Unable to assess alcohol history related to: Unknown Alcohol intake: former Patient Tobacco Use Status: Never used Tobacco Smoked in Last 30 Days: No e-Cigarette/Vaping Use: Former Use Second Hand Smoke Exposure: No Use of substances other than those prescribed or required for medical reasons: No Substance Use Type: Former Substance User Currently Displaying Signs/Symptoms of Drug Intoxication Withdrawal: No Other Past Substance Use Problem:: history of use Any prior treatment program specific to substance use: No Have you been hit, kicked, punched, or otherwise hurt by someone within the past year? If so, by whom?: No Do you feel safe in your current relationship?: No Current Relationship Is there a partner from a previous relationship who is making you feel unsafe now?: No Are you made to feel afraid or neglected: No Advance Directives: No Advance Directives on File: No Do you have thoughts of harming others: None Do you have a plan to hurt others: No Plan Recently lost weight without trying: No Eating poorly because of decreased appetite: No Nutrition Risks: No Nutritional Risk Patient : No : No Poor oral hygiene: No service: No Meds Allergies Allergy/AdvReac Type Severity Reaction Status Date / Time cephalexin [From Keflex] Allergy Severe HIVES Verified 08/15/23 19:19 clindamycin [Clindamycin] Allergy Severe HIVES Verified 08/15/23 19:19 doxycycline [Doxycycline] Allergy Severe HIVES Verified 08/15/23 19:19 erythromycin base Allergy Severe HIVES Verified 08/15/23 19:20 [Erythromycin Base] levofloxacin [From Levaquin] Allergy Severe THROAT Verified 08/15/23 19:19 TIGHTENS nitrofurantoin Allergy Severe HIVES Verified 08/15/23 19:19 [From Macrobid] Penicillins Allergy Severe HIVES Verified 08/15/23 19:19 aspirin Allergy Unknown Hives Verified 08/15/23 19:19 linezolid [From ZYVOX] Allergy Unknown UNKNOWN Verified 08/15/23 19:19 Sulfa (Sulfonamide Allergy Unknown HIVES Verified 08/15/23 19:19 Antibiotics) [SULFA (SULFONAMIDE ANTIBIOTICS)] sulfacetamide Allergy Unknown Hives Verified 08/15/23 19:19 Erythromycin Allergy Unknown Hives Uncoded 04/22/23 06:01 seafood/shellfish Allergy Unknown Facial Uncoded 04/22/23 06:01 Swelling Sulfacet-R Allergy Unknown Hives Uncoded 04/22/23 06:01 Home Medications Medication Instructions Recorded Confirmed Last Taken Type albuterol sulfate 2.5 mg/3 mL 2.5 mg inhalation Q4H PRN 08/03/23 08/15/23 Unknown History (0.083 %) solution for nebulization Shortness Of Breath Or Wheezing albuterol sulfate 90 mcg/actuation 2 puff inhalation Q4-6H PRN 08/03/23 08/15/23 Unknown History aerosol inhaler Shortness Of Breath Or Wheezing cholecalciferol (vitamin D3) 25 25 mcg PO DAILY 08/03/23 08/15/23 Unknown History mcg (1,000 unit) tablet clonazepam 1 mg tablet 1 mg PO BEDTIME PRN Anxiety 08/03/23 08/15/23 Unknown History ferrous sulfate 325 mg (65 mg 325 mg PO BID 08/03/23 08/15/23 Unknown History iron) tablet,delayed release fluticasone propionate 220 1 puff inhalation BID 08/03/23 08/15/23 Unknown History mcg/actuation HFA aerosol inhaler (Flovent HFA) montelukast 10 mg tablet 10 mg PO DAILY 08/03/23 08/15/23 Unknown History omeprazole 20 mg capsule,delayed 20 mg PO BID 08/03/23 08/15/23 Unknown History release tiotropium bromide 18 mcg capsule 1 cap inhalation DAILY 08/03/23 08/15/23 Unknown History with inhalation device (Spiriva with HandiHaler) zolpidem 5 mg tablet 5 mg PO BEDTIME PRN Insomnia 08/03/23 08/15/23 Unknown History Exam Exam Date and Time: August 29, 2023 1005 Assessment and Plan Assessment Anesthesia Assessment: Anesthesia Plan Discussed and Chart Reviewed Final Anesthetic Review Family History of Problems with Anesthesia: No History of Problems with Anesthesia: No NPO: Yes ASA Class: IV Final Preanesthetic Review: No Changes in Pt Med Stat, Meds/Allgs Chart Reviewed, Consent Obtained/Reviewed and Anes Risks/Benef Reviewed Patient Risk: High Procedure Risk: Low Anesthetic Plan Anesthetic Plan: MAC: and Agree w/ Assess. and Plan Disposition: Standard PACU Documented by User: Deysi Tamayo MD [facility] Active Problems Active Problems: All Active Problems (Updated 08/22/23 @ 00:01 by Background Joseph) DVT (deep venous thrombosis) (Acute) Left against medical advice (Acute) Bacteremia (Acute) Heme positive stool (Acute) Hypomagnesemia (Acute) Asthma exacerbation (Acute) Anemia (Acute) GI bleed (Acute) Past Medical History Medical History Left against medical advice Bacteremia Chronic anemia MRSA cellulitis Asthma Legally blind Family History Family history of problems with anesthesia: No Surgical History History of Problems with Anesthesia: No Social History Social History Household Members: Friend(s) Housing: Homeless Do you presently have visiting nurse or other home services: Yes Unable to assess alcohol history related to: Unknown Alcohol intake: former Patient Tobacco Use Status: Never used Tobacco Smoked in Last 30 Days: No e-Cigarette/Vaping Use: Former Use Second Hand Smoke Exposure: No Use of substances other than those prescribed or required for medical reasons: No Substance Use Type: Former Substance User Currently Displaying Signs/Symptoms of Drug Intoxication Withdrawal: No Other Past Substance Use Problem:: history of use Any prior treatment program specific to substance use: No Have you been hit, kicked, punched, or otherwise hurt by someone within the past year? If so, by whom?: No Do you feel safe in your current relationship?: No Current Relationship Is there a partner from a previous relationship who is making you feel unsafe now?: No Are you made to feel afraid or neglected: No Advance Directives: No Advance Directives on File: No Do you have thoughts of harming others: None Do you have a plan to hurt others: No Plan Recently lost weight without trying: No Eating poorly because of decreased appetite: No Nutrition Risks: No Nutritional Risk Patient : No : No Poor oral hygiene: No service: No Meds Allergies Allergy/AdvReac Type Severity Reaction Status Date / Time cephalexin [From Keflex] Allergy Severe HIVES Verified 08/15/23 19:19 clindamycin [Clindamycin] Allergy Severe HIVES Verified 08/15/23 19:19 doxycycline [Doxycycline] Allergy Severe HIVES Verified 08/15/23 19:19 erythromycin base Allergy Severe HIVES Verified 08/15/23 19:20 [Erythromycin Base] levofloxacin [From Levaquin] Allergy Severe THROAT Verified 08/15/23 19:19 TIGHTENS nitrofurantoin Allergy Severe HIVES Verified 08/15/23 19:19 [From Macrobid] Penicillins Allergy Severe HIVES Verified 08/15/23 19:19 aspirin Allergy Unknown Hives Verified 08/15/23 19:19 linezolid [From ZYVOX] Allergy Unknown UNKNOWN Verified 08/15/23 19:19 Sulfa (Sulfonamide Allergy Unknown HIVES Verified 08/15/23 19:19 Antibiotics) [SULFA (SULFONAMIDE ANTIBIOTICS)] sulfacetamide Allergy Unknown Hives Verified 08/15/23 19:19 Erythromycin Allergy Unknown Hives Uncoded 04/22/23 06:01 seafood/shellfish Allergy Unknown Facial Uncoded 04/22/23 06:01 Swelling Sulfacet-R Allergy Unknown Hives Uncoded 04/22/23 06:01 Active Medications: Current Medications Acetaminophen (Acetaminophen 325 Mg Tablet) 650 mg PO Q6H PRN PRN Reason: Pain, Mild (Pain Scale 1-3) Last Admin: 08/22/23 08:05 Dose: 650 mg Albuterol Sulfate (Albuterol Sulfate 90 Mcg 8 Gm Inhaler) 2 puff INHALE Q4H PRN PRN Reason: Shortness Of Breath Or Wheezing Enoxaparin Sodium (Enoxaparin Sodium 60 Mg/0.6 Ml Syringe) 60 mg 1 mg/kg (60 mg) SUBCUT Q12H [facility] Last Admin: 08/27/23 05:41 Dose: 60 mg Ferrous Sulfate (Ferrous Sulfate 324 Mg Tablet.) 324 mg PO BID [facility] Last Admin: 08/27/23 09:44 Dose: 324 mg Fluticasone Propionate (Fluticasone Propionate 250 Mcg Blst.W.Dev) 1 puff INHALE RBID [facility] Last Admin: 08/27/23 07:50 Dose: 1 puff Hydromorphone HCl (Hydromorphone Hcl 2 Mg Tablet) 1 mg PO Q3H PRN PRN Reason: mod pain Last Admin: 08/27/23 09:44 Dose: 1 mg Daptomycin 448 mg/ Sodium (Chloride) 58.96 mls @ 100 mls/hr IV Q24H [facility] Last Infusion: 08/26/23 11:42 Dose: Infused Lidocaine (Lidocaine 4 % Patch Adh..Patch) 1 patch TRANSDERMA DAILY [facility]; Protocol Last Admin: 08/27/23 09:45 Dose: 1 patch Lorazepam (Lorazepam 2 Mg/Ml Vial) 1 mg IM ONCE PRN PRN Reason: preprocedure Last Admin: 08/22/23 10:34 Dose: 1 mg Melatonin (Melatonin 3 Mg Tablet) 6 mg PO BEDTIME PRN PRN Reason: Insomnia Last Admin: 08/26/23 20:23 Dose: 6 mg Montelukast Sodium (Montelukast Sodium 10 Mg Tablet) 10 mg PO BEDTIME [facility] Last Admin: 08/26/23 20:23 Dose: 10 mg Morphine Sulfate (Morphine Sulfate 2 Mg/Ml Cartridge) 2 mg IVPUSH Q4H PRN; Protocol PRN Reason: mod pain Last Admin: 08/27/23 05:41 Dose: 2 mg Omeprazole (Omeprazole 20 Mg Capsule.) 20 mg PO BID [facility] Last Admin: 08/27/23 09:44 Dose: 20 mg Ondansetron HCl (Ondansetron Hcl 4 Mg/2 Ml Vial) 4 mg IVPUSH Q8H PRN PRN Reason: Nausea and Vomiting Oxycodone HCl (Oxycodone Hcl Immed Release 5 Mg Tablet) 5 mg PO Q4H PRN PRN Reason: mod pain Last Admin: 08/24/23 23:28 Dose: 5 mg Sodium Chloride (0.9 % Sodium Chloride Flush 3 Ml Syringe) 3 ml IVFLUSH QSHIFT [facility] Last Admin: 08/27/23 09:45 Dose: 3 ml Tiotropium [place] (Tiotropium [place] 2.5 Mcg 1 Puff/2.5 Mcg Mist.Inhal) 2 puff INHALE RDAILY [facility] Last Admin: 08/27/23 07:50 Dose: 2 puff Vitamin D (Cholecalciferol (Vitamin D3) 25 Mcg Tablet) 25 mcg PO DAILY [facility] Last Admin: 08/27/23 09:44 Dose: 25 mcg Home Medications Medication Instructions Recorded Confirmed Last Taken Type albuterol sulfate 2.5 mg/3 mL 2.5 mg inhalation Q4H PRN 08/03/23 08/15/23 Unknown History (0.083 %) solution for nebulization Shortness Of Breath Or Wheezing albuterol sulfate 90 mcg/actuation 2 puff inhalation Q4-6H PRN 08/03/23 08/15/23 Unknown History aerosol inhaler Shortness Of Breath Or Wheezing cholecalciferol (vitamin D3) 25 25 mcg PO DAILY 08/03/23 08/15/23 Unknown History mcg (1,000 unit) tablet clonazepam 1 mg tablet 1 mg PO BEDTIME PRN Anxiety 08/03/23 08/15/23 Unknown History ferrous sulfate 325 mg (65 mg 325 mg PO BID 08/03/23 08/15/23 Unknown History iron) tablet,delayed release fluticasone propionate 220 1 puff inhalation BID 08/03/23 08/15/23 Unknown History mcg/actuation HFA aerosol inhaler (Flovent HFA) montelukast 10 mg tablet 10 mg PO DAILY 08/03/23 08/15/23 Unknown History omeprazole 20 mg capsule,delayed 20 mg PO BID 08/03/23 08/15/23 Unknown History release tiotropium bromide 18 mcg capsule 1 cap inhalation DAILY 08/03/23 08/15/23 Unknown History with inhalation device (Spiriva with HandiHaler) zolpidem 5 mg tablet 5 mg PO BEDTIME PRN Insomnia 08/03/23 08/15/23 Unknown History Exam Height,Weight and Vital Signs: Height 5 ft 3 in Weight 56 kg Last Vital Signs Temp 97.8 F 08/27/23 07:33 Pulse 82 08/27/23 07:53 Resp 16 08/27/23 07:53 BP 93/69 08/27/23 07:33 Pulse Ox 98 08/27/23 07:33 O2 Del Method Room Air 08/27/23 07:33 Pertinent Lab Results Pertinent Lab Results: Laboratory Tests 08/15/23 08/15/23 08/16/23 21:30 23:46 06:03 WBC 7.2 8.3 RBC 2.41 L 2.02 L Hgb 7.2 L 6.1 L* Hct 22.6 L 19.2 L* MCV 93.8 95.0 MCH 29.9 30.2 MCHC 31.9 31.8 RDW 17.2 H 16.9 H Plt Count 152 L 124 L MPV 9.7 10.3 Immature Gran % (Auto) 0.7 H 0.7 H Neut % (Auto) 85.7 H 69.4 Lymph % (Auto) 10.3 L 22.7 [place] % (Auto) 2.9 7.0 Eos % (Auto) 0.1 0.0 Baso % (Auto) 0.3 0.2 Lymph # (Auto) 0.7 L 1.9 [place] # (Auto) 0.2 0.6 Eos # (Auto) 0.0 0.0 Baso # (Auto) 0.0 0.0 Abs Immat Gran (auto) 0.05 H 0.06 H Absolute Neuts (auto) 6.2 5.8 Absolute Nucleated RBC 0.000 0.000 Nucleated RBC % (auto) 0.0 0.0 Smear Path Review ESR Hold Purple Top Hold Blue Top Sodium 135 132 L Potassium 3.4 4.2 D Chloride 105 106 Carbon Dioxide 23 19 L Anion Gap 10 L 11 L BUN 18 H 14 Creatinine 0.85 0.69 Estim Creat Clear Calc 49.8 61.8 Estimated GFR > 60 > 60 Random Glucose 94 74 Fasting Glucose Lactic Acid 2.0 Calcium 7.6 L D 7.1 L D Magnesium 1.2 L* Total Bilirubin 0.3 AST 15 ALT 8 Alkaline Phosphatase 108 Total Creatine Kinase Troponin I High Sens 4.6 C-Reactive Protein Total Protein 6.1 L Albumin 1.9 L Hold Yellow Top Urine Color Urine Appearance Urine pH Ur Specific [place] Urine Protein Urine Glucose (UA) Urine Ketones Urine Blood Urine Nitrite Ur Leukocyte Esterase Urine RBC Urine WBC Ur Squamous Epith Cells Urine Bacteria Hyaline Casts Stool Occult Blood Urine Opiates Screen Urine Fentanyl Screen Ur Barbiturates Screen Ur Phencyclidine Scrn Ur Amphetamines Screen U Benzodiazepines Scrn Urine Cocaine Screen U Marijuana (THC) Screen Hep Bs Antigen Hep Bs Antibody Hep B Core Total Ab Hep B Core IgM Ab Hepatitis C Ab (EIA) Hep C Viral Load Hep C Viral Load Log HIV 1&2 Ab/P24 Ag 4thGn Blood Type Antibody Screen Crossmatch 08/16/23 08/16/23 08/17/23 08:54 09:53 12:40 WBC 7.1 RBC 2.43 L D Hgb 7.3 L Hct 23.1 L D MCV 95.1 MCH 30.0 MCHC 31.6 RDW 16.9 H Plt Count 137 L MPV 9.8 Immature Gran % (Auto) Neut % (Auto) Lymph % (Auto) [place] % (Auto) Eos % (Auto) Baso % (Auto) Lymph # (Auto) [place] # (Auto) Eos # (Auto) Baso # (Auto) Abs Immat Gran (auto) Absolute Neuts (auto) Absolute Nucleated RBC 0.000 Nucleated RBC % (auto) 0.0 Smear Path Review ESR Hold Purple Top SEE NOTE Hold Blue Top SEE NOTE Sodium Potassium Chloride Carbon Dioxide Anion Gap BUN Creatinine Estim Creat Clear Calc Estimated GFR Random Glucose Fasting Glucose Lactic Acid Calcium Magnesium Total Bilirubin AST ALT Alkaline Phosphatase Total Creatine Kinase Troponin I High Sens C-Reactive Protein Total Protein Albumin Hold Yellow Top See Note Urine Color Yellow Urine Appearance Cloudy Urine pH 6.5 Ur Specific [place] 1.020 Urine Protein 30 (1+) H Urine Glucose (UA) Negative Urine Ketones Negative Urine Blood Negative Urine Nitrite Positive H Ur Leukocyte Esterase Large (3+) H Urine RBC 0-2 Urine WBC 11-20 H Ur Squamous Epith Cells 3-5 Urine Bacteria 1+ Hyaline Casts 0-2 Stool Occult Blood Urine Opiates Screen POSITIVE H Urine Fentanyl Screen POSITIVE H Ur Barbiturates Screen Not Detected Ur Phencyclidine Scrn Not Detected Ur Amphetamines Screen Not Detected U Benzodiazepines Scrn Not Detected Urine Cocaine Screen Not Detected U Marijuana (THC) Screen Not Detected Hep Bs Antigen Hep Bs Antibody Hep B Core Total Ab Hep B Core IgM Ab Hepatitis C Ab (EIA) Hep C Viral Load Hep C Viral Load Log HIV 1&2 Ab/P24 Ag 4thGn Blood Type AB Positive Antibody Screen NEGATIVE Crossmatch See Detail 1108/18/23 08/19/23 06:30 08:32 05:54 WBC 8.3 13.3 H RBC 2.68 L 2.91 L Hgb 8.1 L 8.8 L Hct 24.6 L 27.1 L MCV 91.8 93.1 MCH 30.2 30.2 MCHC 32.9 32.5 RDW 16.4 H 16.0 Plt Count 130 L 178 D MPV 10.1 10.5 Immature Gran % (Auto) Neut % (Auto) Lymph % (Auto) [place] % (Auto) Eos % (Auto) Baso % (Auto) Lymph # (Auto) [place] # (Auto) Eos # (Auto) Baso # (Auto) Abs Immat Gran (auto) Absolute Neuts (auto) Absolute Nucleated RBC 0.000 0.000 Nucleated RBC % (auto) 0.0 0.0 Smear Path Review ESR 69 H Hold Purple Top Hold Blue Top Sodium 130 L 130 L Potassium 4.2 4.1 Chloride 104 103 Carbon Dioxide 20 L 20 L Anion Gap 10 L 11 L BUN 20 H 24 H Creatinine 1.04 1.03 Estim Creat Clear Calc 41.0 41.4 Estimated GFR 52 53 Random Glucose 75 72 Fasting Glucose Lactic Acid Calcium 7.9 L D 8.1 L Magnesium 1.7 Total Bilirubin AST ALT Alkaline Phosphatase Total Creatine Kinase 18 L Troponin I High Sens C-Reactive Protein 30.18 H Total Protein Albumin Hold Yellow Top Urine Color Urine Appearance Urine pH Ur Specific [place] Urine Protein Urine Glucose (UA) Urine Ketones Urine Blood Urine Nitrite Ur Leukocyte Esterase Urine RBC Urine WBC Ur Squamous Epith Cells Urine Bacteria Hyaline Casts Stool Occult Blood Urine Opiates Screen Urine Fentanyl Screen Ur Barbiturates Screen Ur Phencyclidine Scrn Ur Amphetamines Screen U Benzodiazepines Scrn Urine Cocaine Screen U Marijuana (THC) Screen Hep Bs Antigen Negative Hep Bs Antibody REACTIVE Hep B Core Total Ab Reactive Hep B Core IgM Ab Cancelled Hepatitis C Ab (EIA) Reactive H Hep C Viral Load <15 NOT DETECTED Hep C Viral Load Log <1.18 NOT DETECTED HIV 1&2 Ab/P24 Ag 4thGn Nonreactive Blood Type Antibody Screen Crossmatch 08/21/23 08/22/23 08/22/23 10:35 06:08 13:11 WBC 15.3 H RBC 2.23 L D Hgb 7.0 L* D Hct 20.8 L* D MCV 93.3 MCH 31.4 MCHC 33.7 RDW 16.2 H Plt Count 150 L MPV Not Reportable Immature Gran % (Auto) Neut % (Auto) Lymph % (Auto) [place] % (Auto) Eos % (Auto) Baso % (Auto) Lymph # (Auto) [place] # (Auto) Eos # (Auto) Baso # (Auto) Abs Immat Gran (auto) Absolute Neuts (auto) Absolute Nucleated RBC 0.000 Nucleated RBC % (auto) 0.0 Smear Path Review SEE NOTE ESR Hold Purple Top Hold Blue Top Sodium 133 L Potassium 3.7 Chloride 109 H Carbon Dioxide 18 L Anion Gap 10 L BUN 13 Creatinine 0.64 Estim Creat Clear Calc 66.6 Estimated GFR > 60 Random Glucose Fasting Glucose 86 Lactic Acid Calcium 7.5 L D Magnesium Total Bilirubin AST ALT Alkaline Phosphatase Total Creatine Kinase Troponin I High Sens C-Reactive Protein Total Protein Albumin Hold Yellow Top Urine Color Urine Appearance Urine pH Ur Specific [place] Urine Protein Urine Glucose (UA) Urine Ketones Urine Blood Urine Nitrite Ur Leukocyte Esterase Urine RBC Urine WBC Ur Squamous Epith Cells Urine Bacteria Hyaline Casts Stool Occult Blood POSITIVE Urine Opiates Screen Urine Fentanyl Screen Ur Barbiturates Screen Ur Phencyclidine Scrn Ur Amphetamines Screen U Benzodiazepines Scrn Urine Cocaine Screen U Marijuana (THC) Screen Hep Bs Antigen Hep Bs Antibody Hep B Core Total Ab Hep B Core IgM Ab Hepatitis C Ab (EIA) Hep C Viral Load Hep C Viral Load Log HIV 1&2 Ab/P24 Ag 4thGn Blood Type AB Positive Antibody Screen NEGATIVE Crossmatch See Detail 08/23/23 08/25/23 08/26/23 06:41 05:23 00:42 WBC 17.7 H 10.0 RBC 2.74 L D 2.28 L Hgb 8.4 L 7.1 L Hct 25.2 L D 21.5 L MCV 92.0 94.3 MCH 30.7 31.1 MCHC 33.3 33.0 RDW 15.7 16.3 H Plt Count 222 D 190 MPV 9.6 9.6 Immature Gran % (Auto) Neut % (Auto) Lymph % (Auto) [place] % (Auto) Eos % (Auto) Baso % (Auto) Lymph # (Auto) [place] # (Auto) Eos # (Auto) Baso # (Auto) Abs Immat Gran (auto) Absolute Neuts (auto) Absolute Nucleated RBC 0.000 0.000 Nucleated RBC % (auto) 0.0 0.0 Smear Path Review ESR Hold Purple Top SEE NOTE SEE NOTE Hold Blue Top Sodium 133 L 133 L Potassium 3.5 3.3 Chloride 107 106 Carbon Dioxide 21 L 24 Anion Gap 9 L 6 L BUN 15 10 Creatinine 0.71 0.64 Estim Creat Clear Calc 60.1 66.6 Estimated GFR > 60 > 60 Random Glucose Fasting Glucose 80 87 Lactic Acid Calcium 7.7 L 7.5 L Magnesium Total Bilirubin AST ALT Alkaline Phosphatase Total Creatine Kinase Troponin I High Sens C-Reactive Protein Total Protein Albumin Hold Yellow Top Urine Color Urine Appearance Urine pH Ur Specific [place] Urine Protein Urine Glucose (UA) Urine Ketones Urine Blood Urine Nitrite Ur Leukocyte Esterase Urine RBC Urine WBC Ur Squamous Epith Cells Urine Bacteria Hyaline Casts Stool Occult Blood Urine Opiates Screen Urine Fentanyl Screen Ur Barbiturates Screen Ur Phencyclidine Scrn Ur Amphetamines Screen U Benzodiazepines Scrn Urine Cocaine Screen U Marijuana (THC) Screen Hep Bs Antigen Hep Bs Antibody Hep B Core Total Ab Hep B Core IgM Ab Hepatitis C Ab (EIA) Hep C Viral Load Hep C Viral Load Log HIV 1&2 Ab/P24 Ag 4thGn Blood Type Antibody Screen Crossmatch 08/27/23 06:00 WBC 6.1 RBC 2.10 L Hgb 6.5 L* Hct 20.2 L* MCV 96.2 MCH 31.0 MCHC 32.2 RDW 15.9 Plt Count 195 MPV 9.9 Immature Gran % (Auto) Neut % (Auto) Lymph % (Auto) [place] % (Auto) Eos % (Auto) Baso % (Auto) Lymph # (Auto) [place] # (Auto) Eos # (Auto) Baso # (Auto) Abs Immat Gran (auto) Absolute Neuts (auto) Absolute Nucleated RBC 0.000 Nucleated RBC % (auto) 0.0 Smear Path Review ESR Hold Purple Top Hold Blue Top Sodium 131 L Potassium 3.5 Chloride 104 Carbon Dioxide 23 Anion Gap 8 L BUN 10 Creatinine 0.63 Estim Creat Clear Calc 67.7 Estimated GFR > 60 Random Glucose Fasting Glucose 129 H Lactic Acid Calcium 7.5 L Magnesium Total Bilirubin AST ALT Alkaline Phosphatase Total Creatine Kinase Troponin I High Sens C-Reactive Protein Total Protein Albumin Hold Yellow Top Urine Color Urine Appearance Urine pH Ur Specific [place] Urine Protein Urine Glucose (UA) Urine Ketones Urine Blood Urine Nitrite Ur Leukocyte Esterase Urine RBC Urine WBC Ur Squamous Epith Cells Urine Bacteria Hyaline Casts Stool Occult Blood Urine Opiates Screen Urine Fentanyl Screen Ur Barbiturates Screen Ur Phencyclidine Scrn Ur Amphetamines Screen U Benzodiazepines Scrn Urine Cocaine Screen U Marijuana (THC) Screen Hep Bs Antigen Hep Bs Antibody Hep B Core Total Ab Hep B Core IgM Ab Hepatitis C Ab (EIA) Hep C Viral Load Hep C Viral Load Log HIV 1&2 Ab/P24 Ag 4thGn Blood Type Antibody Screen Crossmatch Assessment and Plan Final Anesthetic Review Family History of Problems with Anesthesia: No History of Problems with Anesthesia: No
--- NOTE | 2023-08-29 11:25 | HO.PM.IMPN ---
Subjective Subjective Date of Service: 08/29/23 Interval History: Seen and evaluated Feels weak and hungry, refused NIC at first then agreed mildly confused on occasions Left leg pain Review of Systems Review of Systems: Yes all other systems are reviewed and are negative Physical Exam Vital Signs: Vital Signs: Last Vital Signs Temp 97.6 F 08/29/23 07:29 Pulse 80 08/29/23 07:36 Resp 18 08/29/23 07:36 BP 130/61 08/29/23 07:29 Pulse Ox 95 08/29/23 07:29 O2 Del Method Room Air 08/29/23 07:29 BMI result Body Mass Index 21.9 Const: Other: Constitutional : Awake, interactive, not in distress Neck : Normal inspection, Supple Cardiovascular : RRR, no JVP, no lower extremity edema Respiratory : good bilateral air entry, no crackles, wheezes or rhonchi Gastrointestinal: soft, lax, Normal bowel sounds, Non tender Skin : Warm, Dry Neurological : Alert & oriented x3, No focal deficit Objective Data Active Medications Acetaminophen (Acetaminophen 325 Mg Tablet) 650 mg PO Q6H PRN PRN Reason: Pain, Mild (Pain Scale 1-3) Last Admin: 08/28/23 07:38 Dose: 650 mg Documented By: HENRIK Albuterol Sulfate (Albuterol Sulfate 90 Mcg 8 Gm Inhaler) 2 puff INHALE Q4H PRN PRN Reason: Shortness Of Breath Or Wheezing Enoxaparin Sodium (Enoxaparin Sodium 60 Mg/0.6 Ml Syringe) 60 mg 1 mg/kg (60 mg) SUBCUT Q12H [facility] Last Admin: 08/29/23 06:26 Dose: 60 mg Documented By: DARYL Ferrous Sulfate (Ferrous Sulfate 324 Mg Tablet.Dr) 324 mg PO BID [facility] Last Admin: 08/29/23 07:54 Dose: 324 mg Documented By: BAUTISTA Fluticasone Propionate (Fluticasone Propionate 250 Mcg Blst.W.Dev) 1 puff INHALE RBID [facility] Last Admin: 08/29/23 07:34 Dose: 1 puff Documented By: WILFRID Hydromorphone HCl (Hydromorphone Hcl 2 Mg Tablet) 1 mg PO Q3H PRN PRN Reason: mod pain Last Admin: 08/28/23 11:22 Dose: 1 mg Documented By: HENRIK Daptomycin 500 mg/ Sodium (Chloride) 60 mls @ 120 mls/hr IV Q24H [facility] Last Infusion: 08/28/23 17:39 Dose: Infused Documented By: HENRIK Lidocaine (Lidocaine 4 % Patch Adh..Patch) 1 patch TRANSDERMA DAILY [facility]; Protocol Last Admin: 08/29/23 07:56 Dose: Not Given Documented By: BAUTISTA Non-Admin Reason: Patient Refused Lorazepam (Lorazepam 2 Mg/Ml Vial) 1 mg IM ONCE PRN PRN Reason: preprocedure Last Admin: 08/22/23 10:34 Dose: 1 mg Documented By: SOURAV Melatonin (Melatonin 3 Mg Tablet) 6 mg PO BEDTIME PRN PRN Reason: Insomnia Last Admin: 08/29/23 00:33 Dose: 6 mg Documented By: DARYL Montelukast Sodium (Montelukast Sodium 10 Mg Tablet) 10 mg PO BEDTIME [facility] Last Admin: 08/28/23 19:54 Dose: 10 mg Documented By: DARYL Morphine Sulfate (Morphine Sulfate 2 Mg/Ml Cartridge) 2 mg IVPUSH Q4H PRN; Protocol PRN Reason: mod pain Last Admin: 08/29/23 08:29 Dose: 2 mg Documented By: BAUTISTA Omeprazole (Omeprazole 20 Mg Capsule.Dr) 20 mg PO BID [facility] Last Admin: 08/29/23 07:54 Dose: 20 mg Documented By: BAUTISTA Ondansetron HCl (Ondansetron Hcl 4 Mg/2 Ml Vial) 4 mg IVPUSH Q8H PRN PRN Reason: Nausea and Vomiting Oxycodone HCl (Oxycodone Hcl Immed Release 5 Mg Tablet) 5 mg PO Q4H PRN PRN Reason: mod pain Last Admin: 08/27/23 23:35 Dose: 5 mg Documented By: CASTILDominic Sodium Chloride (0.9 % Sodium Chloride Flush 3 Ml Syringe) 3 ml IVFLUSH QSHIFT [facility] Last Admin: 08/29/23 07:55 Dose: 3 ml Documented By: BAUTISTA Tiotropium [place] (Tiotropium [place] 2.5 Mcg 1 Puff/2.5 Mcg Mist.Inhal) 2 puff INHALE RDAILY [facility] Last Admin: 08/29/23 07:34 Dose: 2 puff Documented By: WILFRID Vitamin D (Cholecalciferol (Vitamin D3) 25 Mcg Tablet) 25 mcg PO DAILY [facility] Last Admin: 08/29/23 07:54 Dose: 25 mcg Documented By: BAUTISTA Labs 08/29/23 05:25 08/29/23 05:25 Labs: Laboratory Results - last 24 hr 08/27/23 08/29/23 08/29/23 09:17 05:24 05:25 MCV 95.1 MCH 31.4 MCHC 33.1 RDW 15.1 Plt Count 247 MPV 9.8 Absolute Nucleated RBC 0.000 Nucleated RBC % (auto) 0.0 Anion Gap 10 L Estim Creat Clear Calc 65.6 Estimated GFR > 60 Fasting Glucose 83 Calcium 7.8 L Total Bilirubin 0.4 Direct Bilirubin 0.2 AST 9 ALT 9 Alkaline Phosphatase 179 H Total Protein 6.3 L Albumin 1.6 L Blood Type AB Positive Antibody Screen NEGATIVE JAY, Polyspecific NEGATIVE Positive JAY Work-up TNP Crossmatch See Detail Microbiology Microbiology Results: Microbiology 08/28/23 08:34 Blood Culture - Preliminary Blood - Central Line No growth after 24 hours. 08/28/23 08:34 Blood Culture - Preliminary Blood - Central Line No growth after 24 hours. Assessment and Plan (1) DVT (deep venous thrombosis): Status: Acute (2) Bacteremia: Status: Acute (3) Heme positive stool: Status: Acute (4) Acute on chronic anemia: Status: Acute Plan 73yo F with COPD, HCV, hx IDU, hx MRSA abscesses, hx Cdiff, hx E coli colitis, hx osteomyelitis of humerus/clavicle/scapula with MSSA bacteremia and treated at [facility] [place], chronic anemia recently admitted here 08/03/23 for anemia .left AMA 08/14/23 despite fever concerning for infection. found to have MRSA bacteremia and called back to hospital and also found to have bilateral occlusive DVTs persistently bacteremic. MRSA bacteremia vanco 08/15-08/17, now on dapto 08/17- [changed due to difficult phlebotomy- couldn't monitor troughs] TTE 08/16: The tricuspid valve was not well visualized. Cannot exclude vegetation BCx from 08/14, 08/15, 08/18, 08/23, 08/24, 08/25, 08/26 , 11/28 positive, repeat Once clear, will need a PICC line for 6+ wk of IV ABX. s/p wbc scan 08/27, negative hold off on ancef adjuvent as pcn allergy now with TLC for access/blood draws Plan for NIC occlusive BLE DVTs started therapeutic enoxaparin 1 mg/kg 08/17. Vasc Surg consult, not a candidate for endovascular intervention given uncontrolled infection not candidate for IVC filter given bacteremia, no gross or unstable bleed, will continue AC and transfuse as needed acute on chronic anemia transfused 2u pRBCs last admission; scope revealed non-bleeding stomach ulcers and infectious colitis transfused total of 2 pRBCs, H+H responded appropriately continue ppi transfuse as needed, no gross bleeding GI following for colonoscopy on hypoNa, mild hypoMg repleted Multiple wounds Wound Care consulted last admission: Coccyx wound, unstageable > cleanse with normal saline, apply triad to periwound, lightly pack coccyx with Durafiber Ag cover with sacral foam dressing, daily Right arm AC, abrasion > cleanse with normal saline, apply skin prep to periwound, lightly packed with Durafiber Ag, cover with foam dressing, daily Left forearm> cleanse with normal saline, or cover scabbed area with hydrocolloid dressing, change every 3 days In addition, frequent turning/repositioning every 2 hours to offload bony prominences along with air loss mattress. COPD continue Flovent + Spiriva, prn albuterol GERD continue PPI mood disorder clonazepam + zolpidem hx opioid abuse met Recovery Team, denies use since 2000, attributes recent +Utox to pain meds received in hospital HCV Ab+, viral load negative HBV immune from prior infection HIV negative VTE ppx LMWH dispo will need STR eventually for IV ABX reason for continued hospitalization:still bacteremic Quality Stroke Does the patient have a stroke diagnosis?: No VTE Prior VTE?: No VTE Risk Level:: Medical - moderate - high VTE Device Contraindication: Treatment Not Indicated VTE Drug Contraindication: N/A - Med Ordered
--- NOTE | 2023-08-29 11:41 | MHC.CLN ---
F/U CURRENTLY NPO FOR PROCEDURE. WHEN ABLE TO RESUME DIET, RECOMMEND: REGUALR DIET WITH ENSURE MAX PROTEIN BID TO PROMOTE WOUND HEALING. SUPPLEMENT PROVIDES 300 KCALS, 60 G PROTEIN. PATIENT WITH UNSTAGEABLE AREA TO COCCYX. INTAKE USUALLY GOOD, WITH MANY MEALS 100%. MONITOR PO INTAKE AND SUPPLEMENT ACCEPTANCE.
--- NOTE | 2023-08-29 12:18 | MHC.CM.PN ---
No DC today per MD rounds. Final blood cultures are pending. The patient is scheduled for a NIC today. [facility] for IV ABX. Patient will transport via BLS.
[2023-08-29 13:01] VITALS: BMI 21.9
[2023-08-29] MEDS: DAPTOmycin 500 MG in 0.9 % Sodium Chloride 50 ML 120 MG IV (14:22)
--- NOTE | 2023-08-29 14:33 | PC.NURSE ---
Pt refused procedure once in Pre-op Dr. Anna and Dr. Rao bedside. Pt to return to floor. S3 nurse aware. Pt reports needing pad changed on bed. This television script writer attempted to provide care and pt refused stating just bring me back to my room. STANLEY Russell aware.
[2023-08-29 16:00] VITALS: BP 121/60; PULSE 86; RESP 16; TEMP 36.6; O2SAT 98
--- NOTE | 2023-08-29 17:28 | PC.NURSE ---
Pt refusing most of procedures and treatments today. Dr Roberts notified and in to speak with pt a couple different times.
[2023-08-29 20:00] VITALS: BP 112/66; PULSE 92; RESP 16; TEMP 36.9; O2SAT 94
[2023-08-29] MEDS: Montelukast Sodium 10 MG TABLET PO (20:08)
[2023-08-29 21:28] LABS: Haptoglobin 158 MG/DL ((30-200))
[2023-08-30] MEDS: Morphine Sulfate 2 MG/ML CARTRIDGE IVPUSH ×3 (01:22→21:38)
[2023-08-30 03:18] VITALS: BP 122/57; PULSE 98; RESP 16; TEMP 36.7; O2SAT 96
[2023-08-30 06:51] LABS: Iron 26 mcg/dL (30-160); Percent Iron Saturation 30 % (15-50); Total Iron Binding Capacity 88 mcg/dL (228-428); Unsaturated Iron Binding 62 ug/dL
[2023-08-30 07:28] VITALS: BP 103/62; PULSE 86; RESP 16; TEMP 36.4; O2SAT 96
[2023-08-30] MEDS: Fluticasone Propionate 250 MCG BLST.W.DEV 1 PUFF INHALE ×2 (08:21→20:08)
[2023-08-30] MEDS: Tiotropium Bromide 2.5 mcg 1 PUFF/2.5 MCG MIST.INHAL 2 PUFF INHALE (08:21)
[2023-08-30 08:24] VITALS: PULSE 88; RESP 16; O2SAT 99
[2023-08-30] MEDS: Lidocaine 4 % Patch ADH..PATCH 1 PATCH TRANSDERMA (08:52)
[2023-08-30] MEDS: 0.9 % Sodium Chloride Flush 3 ML SYRINGE IVFLUSH ×2 (08:52→21:39)
[2023-08-30] MEDS: Omeprazole 20 MG CAPSULE.DR PO ×2 (08:52→21:32)
[2023-08-30] MEDS: Cholecalciferol (Vitamin D3) 25 MCG TABLET PO (08:52)
[2023-08-30] MEDS: Ferrous Sulfate 324 MG TABLET.DR PO ×2 (08:52→21:32)
--- NOTE | 2023-08-30 11:40 | P.PNIM_ITS ---
Subjective Subjective Date of Service: 08/30/23 Interval History: Seen and evaluated Feels weak and fatigued Cultures positive To remove TLC Left leg pain improving Review of Systems Review of Systems: Yes all other systems are reviewed and are negative Physical Exam 2 Vital Signs: Vital Signs: Last Vital Signs Temp 97.6 F 08/30/23 07:28 Pulse 88 08/30/23 08:24 Resp 16 08/30/23 08:24 BP 103/62 08/30/23 07:28 Pulse Ox 96 08/30/23 07:28 O2 Del Method Room Air 08/30/23 07:28 BMI result Body Mass Index 21.9 Const: Other: Constitutional : Awake, interactive, not in distress Neck : Normal inspection, Supple Cardiovascular : RRR, no JVP, Left lower extremity edema with warmth and tenderness Respiratory : good bilateral air entry, no crackles, wheezes or rhonchi Gastrointestinal: soft, lax, Normal bowel sounds, Non tender Skin : Warm, Dry, unstageable sacral wound Neurological : Alert & oriented x3, No focal deficit Objective Data Active Medications Acetaminophen (Acetaminophen 325 Mg Tablet) 650 mg PO Q6H PRN PRN Reason: Pain, Mild (Pain Scale 1-3) Last Admin: 08/28/23 07:38 Dose: 650 mg Documented By: HENRIK Albuterol Sulfate (Albuterol Sulfate 90 Mcg 8 Gm Inhaler) 2 puff INHALE Q4H PRN PRN Reason: Shortness Of Breath Or Wheezing Enoxaparin Sodium (Enoxaparin Sodium 60 Mg/0.6 Ml Syringe) 60 mg 1 mg/kg (60 mg) SUBCUT Q12H [facility] Last Admin: 08/29/23 20:08 Dose: 60 mg Documented By: DARYL Ferrous Sulfate (Ferrous Sulfate 324 Mg Tablet.Dr) 324 mg PO BID [facility] Last Admin: 08/30/23 08:52 Dose: 324 mg Documented By: FOGARTSinai Fluticasone Propionate (Fluticasone Propionate 250 Mcg Blst.W.Dev) 1 puff INHALE RBID [facility] Last Admin: 08/30/23 08:21 Dose: 1 puff Documented By: ARMANI Hydromorphone HCl (Hydromorphone Hcl 2 Mg Tablet) 1 mg PO Q3H PRN PRN Reason: mod pain Last Admin: 08/28/23 11:22 Dose: 1 mg Documented By: HENRIK Daptomycin 500 mg/ Sodium (Chloride) 60 mls @ 120 mls/hr IV Q24H [facility] Last Infusion: 08/29/23 15:29 Dose: Infused Documented By: BAUTISTA Lidocaine (Lidocaine 4 % Patch Adh..Patch) 1 patch TRANSDERMA DAILY [facility]; Protocol Last Admin: 08/30/23 08:52 Dose: 1 patch Documented By: GRADY Lorazepam (Lorazepam 2 Mg/Ml Vial) 1 mg IM ONCE PRN PRN Reason: preprocedure Last Admin: 08/22/23 10:34 Dose: 1 mg Documented By: SOURAV Melatonin (Melatonin 3 Mg Tablet) 6 mg PO BEDTIME PRN PRN Reason: Insomnia Last Admin: 08/29/23 21:25 Dose: 6 mg Documented By: DARYL Montelukast Sodium (Montelukast Sodium 10 Mg Tablet) 10 mg PO BEDTIME [facility] Last Admin: 08/29/23 20:08 Dose: 10 mg Documented By: DARYL Morphine Sulfate (Morphine Sulfate 2 Mg/Ml Cartridge) 2 mg IVPUSH Q4H PRN; Protocol PRN Reason: mod pain Last Admin: 08/30/23 05:51 Dose: 2 mg Documented By: DARYL Omeprazole (Omeprazole 20 Mg Capsule.Dr) 20 mg PO BID [facility] Last Admin: 08/30/23 08:52 Dose: 20 mg Documented By: GRADY Ondansetron HCl (Ondansetron Hcl 4 Mg/2 Ml Vial) 4 mg IVPUSH Q8H PRN PRN Reason: Nausea and Vomiting Oxycodone HCl (Oxycodone Hcl Immed Release 5 Mg Tablet) 5 mg PO Q4H PRN PRN Reason: mod pain Last Admin: 08/27/23 23:35 Dose: 5 mg Documented By: CASTILDominic Sodium Chloride (0.9 % Sodium Chloride Flush 3 Ml Syringe) 3 ml IVFLUSH QSHIFT [facility] Last Admin: 08/30/23 08:52 Dose: 3 ml Documented By: GRADY Tiotropium [place] (Tiotropium [place] 2.5 Mcg 1 Puff/2.5 Mcg Mist.Inhal) 2 puff INHALE RDAILY [facility] Last Admin: 08/30/23 08:21 Dose: 2 puff Documented By: ARMANI Vitamin D (Cholecalciferol (Vitamin D3) 25 Mcg Tablet) 25 mcg PO DAILY [facility] Last Admin: 08/30/23 08:52 Dose: 25 mcg Documented By: GRADY Labs 08/29/23 05:25 08/29/23 05:25 Labs: Laboratory Results - last 24 hr 08/29/23 08/30/23 05:25 06:18 Haptoglobin 158 Iron 26 L TIBC 88 L % Saturation 30 Unsat Iron Binding 62 JAY, Polyspecific Cancelled Positive JAY Work-up Cancelled Microbiology Microbiology Results: Microbiology 08/28/23 08:34 Blood Culture - Preliminary Blood - Central Line Staphylococcus aureus 08/28/23 08:34 Blood Culture - Preliminary Blood - Central Line No growth after 48 hours. 08/29/23 14:47 Blood Culture - Final Blood - Venous Assessment and Plan (1) Acute on chronic anemia: Status: Acute (2) DVT (deep venous thrombosis): Status: Acute (3) Bacteremia: Status: Acute Plan 73yo F with COPD, HCV, hx IDU, hx MRSA abscesses, hx Cdiff, hx E coli colitis, hx osteomyelitis of humerus/clavicle/scapula with MSSA bacteremia and treated at [facility] [place], chronic anemia recently admitted here 08/03/23 for anemia .left AMA 08/14/23 despite fever concerning for infection. found to have MRSA bacteremia and called back to hospital and also found to have bilateral occlusive DVTs persistently bacteremic. MRSA bacteremia vanco 08/15-08/17, now on dapto 08/17- [changed due to difficult phlebotomy- couldn't monitor troughs] TTE 08/16: The tricuspid valve was not well visualized. Cannot exclude vegetation BCx from 08/14, 08/15, 08/18, 08/23, 08/24, 08/25, 08/26 , 08/28 positive, repeat Once clear, will need a PICC line for 6+ wk of IV ABX. s/p wbc scan 08/27, negative hold off on ancef adjuvent as pcn allergy DC TLC as it is likely source of infection, place peripheral IV Plan for NIC tomorrow occlusive BLE DVTs on therapeutic enoxaparin 1 mg/kg 08/17. Vasc Surg consult, not a candidate for endovascular intervention given uncontrolled infection not candidate for IVC filter given bacteremia, no gross or unstable bleed, will continue AC and transfuse as needed acute on chronic anemia transfused 2u pRBCs last admission; scope revealed non-bleeding stomach ulcers and infectious colitis transfused total of 3 pRBCs, H+H responded appropriately continue ppi Patient refused doing EGD and Colonoscopy this hospital stay transfuse as needed, no gross bleeding Follow H&H hypoNa, mild hypoMg repleted Multiple wounds Wound Care consulted last admission: Coccyx wound, unstageable > cleanse with normal saline, apply triad to periwound, lightly pack coccyx with Durafiber Ag cover with sacral foam dressing, daily Right arm AC, abrasion > cleanse with normal saline, apply skin prep to periwound, lightly packed with Durafiber Ag, cover with foam dressing, daily Left forearm> cleanse with normal saline, or cover scabbed area with hydrocolloid dressing, change every 3 days In addition, frequent turning/repositioning every 2 hours to offload bony prominences along with air loss mattress. COPD continue Flovent + Spiriva, prn albuterol GERD continue PPI mood disorder clonazepam + zolpidem hx opioid abuse met Recovery Team, denies use since 2000, attributes recent +Utox to pain meds received in hospital HCV Ab+, viral load negative HBV immune from prior infection HIV negative VTE ppx LMWH dispo will need STR eventually for IV ABX reason for continued hospitalization:still bacteremic Quality Stroke Does the patient have a stroke diagnosis?: No VTE Prior VTE?: No VTE Risk Level:: Medical - moderate - high VTE Device Contraindication: Treatment Not Indicated VTE Drug Contraindication: N/A - Med Ordered
[2023-08-30] MEDS: DAPTOmycin 500 MG in 0.9 % Sodium Chloride 50 ML 120 MG IV (14:06)
[2023-08-30 15:52] VITALS: BP 101/55; PULSE 101; RESP 18; TEMP 36.4; O2SAT 92
[2023-08-30] MEDS: guaiFENesin 200 MG/10 ML 10 ML LIQUID PO (17:33)
[2023-08-30] MEDS: ondansetron HCL 4 MG/2 ML VIAL IVPUSH (17:57)
[2023-08-30 19:35] VITALS: BP 149/86; PULSE 108; RESP 18; TEMP 36.5; O2SAT 95
[2023-08-30] MEDS: Montelukast Sodium 10 MG TABLET PO (21:32)
[2023-08-31] VITALS (9 sets, daily range): BP systolic 117–131; BP diastolic 56–77; PULSE 102–120; RESP 18–22; TEMP 36.5–37.4; O2SAT 87–100
--- NOTE | 2023-08-31 | ECG_ITS ---
Test Reason : tachy Blood Pressure : / mmHG Vent. Rate : 127 BPM Atrial Rate : 127 BPM P-R Int : 124 ms QRS Dur : 072 ms QT Int : 278 ms P-R-T Axes : 064 058 027 degrees QTc Int : 404 ms Sinus tachycardia Nonspecific T wave abnormality Abnormal ECG When compared with ECG of 18-AUG-2023 12:20, Nonspecific T wave abnormality, worse in Inferior leads Nonspecific T wave abnormality, worse in Anterolateral leads Referred By: Joshua Begum Electronically Signed By:CHARY ENCARNACION MD
[2023-08-31] MEDS: guaiFENesin 200 MG/10 ML 10 ML LIQUID PO ×2 (02:45→07:53)
[2023-08-31] MEDS: HYDROmorphone HCl 2 MG TABLET 1 MG PO ×3 (02:46→22:41)
[2023-08-31 04:12] LABS: ABG Base Excess 1.1 mmol/L; ABG HCO3 26 mmol/L (22-26); ABG pCO2 43 mmHg (32-45); ABG pH 7.38 (7.35-7.45); ABG pO2 60 mmHg (83-108)
[2023-08-31 04:13] LABS: ABG Refer to POC result
--- NOTE | 2023-08-31 04:30 | PM.EVENT ---
Event Note Date of Service: 08/31/23 Event Note: called to [facility] for ams and tachypnea, tachycardia, hypoxia. cxr with simlar RML opacity EKG sinus tach abg with hypoxia bp stable patient lethargic but responsive to stimuli, protecting airway oxygen improved with supplement ?aspiration event vs PE already on therapeutic lovenox will transfer to tele for now for closer observation. Time Spent With Patient Time: Total time managing care of this patient today ____ minutes.
--- NOTE | 2023-08-31 04:38 | MHC.PIE ---
p; pt found confused, vs bp 124/71, p 120-133, o2 84 on RA, pt noted with wheezing and pt shivering, c/o cold. o2 placed - o2 sat 94 on 1L i; resp notified, dr toscano notified, nursing sup notified. new order cxr, abg and ekg. e; pt transferred to [facility] [place]. report given. will cont to monitor
[2023-08-31] MEDS: Omeprazole 20 MG CAPSULE.DR PO ×2 (07:53→22:42)
[2023-08-31] MEDS: Ferrous Sulfate 324 MG TABLET.DR PO ×2 (07:53→22:42)
[2023-08-31] MEDS: Lidocaine 4 % Patch ADH..PATCH 1 PATCH TRANSDERMA (07:53)
[2023-08-31] MEDS: Enoxaparin Sodium 60 MG/0.6 ML SYRINGE SUBCUT ×2 (07:53→22:43)
[2023-08-31] MEDS: Cholecalciferol (Vitamin D3) 25 MCG TABLET PO (07:53)
--- NOTE | 2023-08-31 08:08 | P.CDIM_ITS ---
PROVIDER RESPONSE TEXT: To clarify, the appropriate diagnosis supported by the clinical indicators: Other (explain): Multifactorial anemia, acute on chronic with blood loss and chronic illness of persi stent bacteremia QUERY TEXT: PHYSICIAN'S DOCUMENTATION REQUEST Date of Query: 08/29/2023 11:53 AM EST Patient Name: Elli Rivers Admit Date: 08/16/2023 Dear Nessa Roberts, A review of the medical record indicates additional documentation may be needed. Please review below and update the documentation accordingly. Clinical Indicators: GI 08/28 consultation note: Anemia, multiple causes including nutritional, metabolic, anemia of chron ic disease possible some blood loss as well. HGB 6.5 HCT 20.2 Transfusions since admission - 4 units PRBC BP 95/52 Based on the above, could you clarify which of the following is the most likely type of anemia you ar e evaluating, treating, and/or monitoring? Acute blood loss anemia Acute blood loss anemia with baseline chronic anemia (specify type) Anemia of chronic disease indicate if neoplastic disease, CKD, or other Chronic iron deficiency anemia due to blood loss Other (explain) Clinically unable to determine (explain) Thank you, Marie Gaming, CCS, CDIS Use of terms such as suspected, likely, concern for, or probable (associated with a specific diagnosi s that is being evaluated, monitored, or treated as if it exists) are acceptable and can be coded in the inpatient se tting, when documented at the time of discharge. Please use your independent medical judgment in providing your response. THIS QUERY IS PART OF THE PERMANENT MEDICAL RECORD
[2023-08-31] MEDS: Fluticasone Propionate 250 MCG BLST.W.DEV 1 PUFF INHALE ×2 (08:23→20:25)
[2023-08-31] MEDS: Tiotropium Bromide 2.5 mcg 1 PUFF/2.5 MCG MIST.INHAL 2 PUFF INHALE (08:23)
[2023-08-31] MEDS: Albuterol/Iprat 2.5/0.5MG 3 ML AMPUL.NEB INHALE ×3 (12:07→20:22)
--- NOTE | 2023-08-31 12:09 | P.PNIM_ITS ---
Subjective Subjective Date of Service: 08/31/23 Interval History: Seen and evaluated Had rough night with increase SOB and dyspnea Feels weak and fatigued this morning Cultures positive To remove TLC today by IR and place different line Left leg swelling and pain improving Review of Systems Review of Systems: Yes all other systems are reviewed and are negative Physical Exam 2 Vital Signs: Vital Signs: Last Vital Signs Temp 98.7 F 08/31/23 07:20 Pulse 104 H 08/31/23 08:23 Resp 18 08/31/23 08:23 BP 117/56 L 08/31/23 07:20 Pulse Ox 94 08/31/23 07:20 O2 Del Method Nasal Cannula 08/31/23 07:20 BMI result Body Mass Index 21.9 Const: Other: Constitutional : Awake, interactive, not in distress Neck : Normal inspection, Supple Cardiovascular : RRR, no JVP, Left lower extremity edema with warmth and tenderness and decreased swelling Respiratory : good bilateral air entry, no crackles,expiratory wheezes bilaterally Gastrointestinal: soft, lax, Normal bowel sounds, Non tender Skin : Warm, Dry, unstageable sacral wound Neurological : Alert & oriented x3, No focal deficit Objective Data Active Medications Acetaminophen (Acetaminophen 325 Mg Tablet) 650 mg PO Q6H PRN PRN Reason: Pain, Mild (Pain Scale 1-3) Last Admin: 08/28/23 07:38 Dose: 650 mg Documented By: HENRIK Albuterol Sulfate (Albuterol Sulfate 90 Mcg 8 Gm Inhaler) 2 puff INHALE Q4H PRN PRN Reason: Shortness Of Breath Or Wheezing Albuterol/Ipratropium (Albuterol/Iprat 2.5/0.5mg 3 Ml Ampul.Neb) 3 ml INHALE RQ4H WHILE AWAKE [facility] Last Admin: 08/31/23 12:07 Dose: 3 ml Documented By: DELMER Enoxaparin Sodium (Enoxaparin Sodium 60 Mg/0.6 Ml Syringe) 60 mg 1 mg/kg (60 mg) SUBCUT Q12H [facility] Last Admin: 08/31/23 07:53 Dose: 60 mg Documented By: EPIFANIO Ferrous Sulfate (Ferrous Sulfate 324 Mg Tablet.) 324 mg PO BID [facility] Last Admin: 08/31/23 07:53 Dose: 324 mg Documented By: EPIFANIO Fluticasone Propionate (Fluticasone Propionate 250 Mcg Blst.W.Dev) 1 puff INHALE RBID [facility] Last Admin: 08/31/23 08:23 Dose: 1 puff Documented By: DELMER Guaifenesin (Guaifenesin 200 Mg/10 Ml 10 Ml Liquid) 10 ml PO Q6H PRN PRN Reason: Cough Last Admin: 08/31/23 07:53 Dose: 10 ml Documented By: EPIFANIO Hydromorphone HCl (Hydromorphone Hcl 2 Mg Tablet) 1 mg PO Q3H PRN PRN Reason: mod pain Last Admin: 08/31/23 07:54 Dose: 1 mg Documented By: EPIFANIO Daptomycin 500 mg/ Sodium (Chloride) 60 mls @ 120 mls/hr IV Q24H [facility] Last Infusion: 08/30/23 15:03 Dose: Infused Documented By: RIN Lidocaine (Lidocaine 4 % Patch Adh..Patch) 1 patch TRANSDERMA DAILY [facility]; Protocol Last Admin: 08/31/23 07:53 Dose: 1 patch Documented By: EPIFANIO Lorazepam (Lorazepam 2 Mg/Ml Vial) 1 mg IM ONCE PRN PRN Reason: preprocedure Last Admin: 08/22/23 10:34 Dose: 1 mg Documented By: SOURAV Melatonin (Melatonin 3 Mg Tablet) 6 mg PO BEDTIME PRN PRN Reason: Insomnia Last Admin: 08/29/23 21:25 Dose: 6 mg Documented By: DARYL Montelukast Sodium (Montelukast Sodium 10 Mg Tablet) 10 mg PO BEDTIME [facility] Last Admin: 08/30/23 21:32 Dose: 10 mg Documented By: CARL Morphine Sulfate (Morphine Sulfate 2 Mg/Ml Cartridge) 2 mg IVPUSH Q4H PRN; Protocol PRN Reason: mod pain Last Admin: 08/30/23 21:38 Dose: 2 mg Documented By: CARL Omeprazole (Omeprazole 20 Mg Capsule.Dr) 20 mg PO BID [facility] Last Admin: 08/31/23 07:53 Dose: 20 mg Documented By: EPIFANIO Ondansetron HCl (Ondansetron Hcl 4 Mg/2 Ml Vial) 4 mg IVPUSH Q8H PRN PRN Reason: Nausea and Vomiting Last Admin: 08/30/23 17:57 Dose: 4 mg Documented By: RIN Oxycodone HCl (Oxycodone Hcl Immed Release 5 Mg Tablet) 5 mg PO Q4H PRN PRN Reason: mod pain Last Admin: 08/27/23 23:35 Dose: 5 mg Documented By: INOILDominic Sodium Chloride (0.9 % Sodium Chloride Flush 3 Ml Syringe) 3 ml IVFLUSH QSHIFT [facility] Last Admin: 08/31/23 10:04 Dose: Not Given Documented By: EPIFANIO Non-Admin Reason: no peripheral IV Tiotropium [place] (Tiotropium [place] 2.5 Mcg 1 Puff/2.5 Mcg Mist.Inhal) 2 puff INHALE RDAILY [facility] Last Admin: 08/31/23 08:23 Dose: 2 puff Documented By: DELMER Vitamin D (Cholecalciferol (Vitamin D3) 25 Mcg Tablet) 25 mcg PO DAILY [facility] Last Admin: 08/31/23 07:53 Dose: 25 mcg Documented By: EPIFANIO Labs 08/29/23 05:25 08/29/23 05:25 Labs: Laboratory Results - last 24 hr 08/31/23 04:04 O2 Saturation 87.0 ABG pH at Pt Temp 7.38 ABG pCO2 at Pt Temp 43 ABG pO2 at Pt Temp 60 L ABG HCO3 26 ABG Base Excess (Actual) 1.1 Microbiology Microbiology Results: Microbiology 08/28/23 08:34 Blood Culture - Final Blood - Central Line Methicillin Res Staph Aureus 08/29/23 17:20 Blood Culture - Preliminary Blood - Venous No growth after 24 hours. 08/28/23 08:34 Blood Culture - Preliminary Blood - Central Line No growth after 48 hours. 08/29/23 14:47 Blood Culture - Final Blood - Venous Assessment and Plan (1) Acute on chronic anemia: Status: Acute (2) DVT (deep venous thrombosis): Status: Acute (3) Bacteremia: Status: Acute (4) Pneumonia: Status: Acute Plan 73yo F with COPD, HCV, hx IDU, hx MRSA abscesses, hx Cdiff, hx E coli colitis, hx osteomyelitis of humerus/clavicle/scapula with MSSA bacteremia and treated at [facility] [place], chronic anemia recently admitted here 08/03/23 for anemia .left AMA 08/14/23 despite fever concerning for infection. found to have MRSA bacteremia and called back to hospital and also found to have bilateral occlusive DVTs persistently bacteremic. MRSA bacteremia vanco 08/15-08/17, now on dapto 08/17- [changed due to difficult phlebotomy- couldn't monitor troughs] TTE 08/16: The tricuspid valve was not well visualized. Cannot exclude vegetation BCx from 08/14, 08/15, 08/18, 08/23, 08/24, 08/25, 08/26 , 08/28 positive, 08/29 pending will need a PICC line for 6+ wk of IV ABX. s/p wbc scan 08/27, negative hold off on ancef adjuvent as pcn allergy DC TLC as it is likely source of infection, place peripheral IV today Plan for NIC next week as postpone this morning as the patient ate Respiratory distress CXR showing worsening Pneumonia in RML, less likely mass On Daptomycin as Abx Many Abx allergies, to discuss with ID addition of 2nd agent Incentive spirometry for now occlusive BLE DVTs Imporivng on therapeutic enoxaparin 1 mg/kg 08/17. Vasc Surg consult, not a candidate for endovascular intervention given uncontrolled infection not candidate for IVC filter given bacteremia, no gross or unstable bleed, will continue AC and transfuse as needed acute on chronic anemia Stable transfused total of 3 pRBCs, H+H responded appropriately continue ppi Patient refused doing EGD and Colonoscopy this hospital stay transfuse as needed, no gross bleeding Follow H&H hypoNa, mild hypoMg repleted Multiple wounds Wound Care consulted last admission: Coccyx wound, unstageable > cleanse with normal saline, apply triad to periwound, lightly pack coccyx with Durafiber Ag cover with sacral foam dressing, daily Right arm AC, abrasion > cleanse with normal saline, apply skin prep to periwound, lightly packed with Durafiber Ag, cover with foam dressing, daily Left forearm> cleanse with normal saline, or cover scabbed area with hydrocolloid dressing, change every 3 days In addition, frequent turning/repositioning every 2 hours to offload bony prominences along with air loss mattress. COPD continue Flovent + Spiriva, prn albuterol GERD continue PPI mood disorder clonazepam + zolpidem hx opioid abuse met Recovery Team, denies use since 2000, attributes recent +Utox to pain meds received in hospital HCV Ab+, viral load negative HBV immune from prior infection HIV negative VTE ppx LMWH dispo will need STR eventually for IV ABX reason for continued hospitalization:still bacteremic with worsening pneumonia Quality Stroke Does the patient have a stroke diagnosis?: No VTE Prior VTE?: No VTE Risk Level:: Medical - moderate - high VTE Device Contraindication: Treatment Not Indicated VTE Drug Contraindication: N/A - Med Ordered
[2023-08-31] MEDS: Furosemide 20 MG/2 ML VIAL IVPUSH (12:31)
--- NOTE | 2023-08-31 13:05 | MHC.CLN ---
F/U MOVED TO [facility] 08/31 FOR MONITORING. DIET=REGULAR DIET WITH ENSURE MAX PROTEIN BID TO PROMOTE WOUND HEALING. SUPPLEMENT PROVIDES 300 KCALS, 60 G PROTEIN. PATIENT WITH UNSTAGEABLE AREA TO COCCYX. RECENT LETHARGY BUT PRIOR INTAKE USUALLY GOOD. MONITOR PO INTAKE AND SUPPLEMENT ACCEPTANCE.
--- NOTE | 2023-08-31 14:09 | HO.RADPN ---
RADIOLOGY Narrative Narrative: Procedure Note: Left arm dual lumen PICC, 38 cm placed using fluoro and US. Tip at cavoatrial junction. Ok for use Right IJ central line removed without immediate complications. Tip sent for culture. Eduardo MANCIA Interventional Radiology
--- NOTE | 2023-08-31 15:57 | MHC.CM.PN ---
EMR reviewed and per MD rounds, pt is not medically cleared for D/C due to worsening bacteremia requiring IV antibiotics, and PICC line placement today. CM will continue to follow.
--- NOTE | 2023-08-31 15:59 | MHC.CM.PN ---
EMR reviewed and per MD rounds, pt is not medically cleared for D/C due to worsening pneumonia and bacteremia requiring IV antibiotics, and PICC line placement today. CM will continue to follow.
[2023-08-31] MEDS: DAPTOmycin 500 MG in 0.9 % Sodium Chloride 50 ML 120 MG IV (17:43)
[2023-08-31] MEDS: 0.9 % Sodium Chloride Flush 3 ML SYRINGE IVFLUSH (17:45)
[2023-08-31] MEDS: Montelukast Sodium 10 MG TABLET PO (22:42)
[2023-09-01] VITALS (7 sets, daily range): BP systolic 107–136; BP diastolic 56–82; PULSE 76–106; RESP 16–24; TEMP 36.2–37.6; O2SAT 96–98
[2023-09-01] MEDS: guaiFENesin 200 MG/10 ML 10 ML LIQUID PO ×2 (05:46→21:51)
[2023-09-01 07:03] LABS: Hematocrit 26.9 % (37.0-47.0); Hemoglobin 8.4 g/dl (12.0-16.0); Mean Corpuscular HGB Conc 31.2 g/dl (31.0-35.0); Mean Corpuscular Hemoglobin 31.2 pg (27.0-33.0); Mean Platelet Volume 9.8 fL (9.4-12.3); Platelet Count 229 X10*3/uL (160-400); Red Blood Count 2.69 X10*6/uL (4.20-5.50); Red Cell Distribution Width 15.7 % (11.0-16.0); White Blood Count 4.9 X10*3/uL (4.8-10.8)
[2023-09-01] MEDS: Lidocaine 4 % Patch ADH..PATCH 1 PATCH TRANSDERMA (08:21)
[2023-09-01] MEDS: Omeprazole 20 MG CAPSULE.DR PO ×2 (08:21→21:51)
[2023-09-01] MEDS: Ferrous Sulfate 324 MG TABLET.DR PO ×2 (08:21→21:51)
[2023-09-01] MEDS: 0.9 % Sodium Chloride Flush 3 ML SYRINGE IVFLUSH ×3 (08:21→21:51)
[2023-09-01] MEDS: Cholecalciferol (Vitamin D3) 25 MCG TABLET PO (08:21)
[2023-09-01 09:11] LABS: Anion Gap 11 (12-20)
[2023-09-01 12:29] LABS: Blood Urea Nitrogen 15 mg/dL (9-16); Calcium 8.5 mg/dL (8.4-10.2); Carbon Dioxide 25 mmol/L (22-29); Chloride 101 mmol/L (96-108); Creatinine Clr Calc Pharmacy 65.6; Estimated Glomerular Filt Rate > 60; Glucose Random 73 mg/dL (60-115); Potassium 4.6 mmol/L (3.3-5.1); Sodium 131 mmol/L (135-145)
--- NOTE | 2023-09-01 13:19 | HO.PM.IMPN ---
Subjective Subjective Date of Service: 09/01/23 Interval History: Seen and evaluated more lethargic and sleepy this morning Feels weak and fatigued Cultures negative at this point Left leg swelling and pain improving Review of Systems Review of Systems: Yes Unobtainable due to mental status Physical Exam Vital Signs: Vital Signs: Last Vital Signs Temp 97.6 F 09/01/23 07:47 Pulse 106 H 09/01/23 07:47 Resp 16 09/01/23 07:47 BP 119/58 L 09/01/23 07:47 Pulse Ox 96 09/01/23 07:47 O2 Del Method Room Air 09/01/23 07:47 O2 Flow Rate 3 09/01/23 03:39 BMI result Body Mass Index 21.9 Const: Other: Constitutional : Awake with stimulation, sleepy, not in distress Neck : Normal inspection, Supple Cardiovascular : RRR, no JVP, Left lower extremity edema with warmth and tenderness and decreased swelling Respiratory : good bilateral air entry, no crackles,expiratory wheezes bilaterally Gastrointestinal: soft, lax, Normal bowel sounds, Non tender Skin : Warm, Dry, unstageable sacral wound Neurological : Altered, responsive to verbal and physical stimuli, oriented about self , No focal deficit Objective Data Active Medications Acetaminophen (Acetaminophen 325 Mg Tablet) 650 mg PO Q6H PRN PRN Reason: Pain, Mild (Pain Scale 1-3) Last Admin: 08/28/23 07:38 Dose: 650 mg Documented By: HENRIK Albuterol Sulfate (Albuterol Sulfate 90 Mcg 8 Gm Inhaler) 2 puff INHALE Q4H PRN PRN Reason: Shortness Of Breath Or Wheezing Albuterol/Ipratropium (Albuterol/Iprat 2.5/0.5mg 3 Ml Ampul.Neb) 3 ml INHALE RQ4H WHILE AWAKE [facility] Last Admin: 09/01/23 11:59 Dose: Not Given Documented By: WILFRID Non-Admin Reason: Patient Asleep Enoxaparin Sodium (Enoxaparin Sodium 60 Mg/0.6 Ml Syringe) 60 mg 1 mg/kg (60 mg) SUBCUT Q12H [facility] Last Admin: 08/31/23 22:43 Dose: 60 mg Documented By: SALO Ferrous Sulfate (Ferrous Sulfate 324 Mg Gayatri.) 324 mg PO BID [facility] Last Admin: 09/01/23 08:21 Dose: 324 mg Documented By: TAMEKA Fluticasone Propionate (Fluticasone Propionate 250 Mcg Blst.W.Dev) 1 puff INHALE RBID [facility] Last Admin: 09/01/23 08:36 Dose: Not Given Documented By: WILFRID Non-Admin Reason: Patient Asleep Guaifenesin (Guaifenesin 200 Mg/10 Ml 10 Ml Liquid) 10 ml PO Q6H PRN PRN Reason: Cough Last Admin: 09/01/23 05:46 Dose: 10 ml Documented By: SALO Hydromorphone HCl (Hydromorphone Hcl 2 Mg Tablet) 1 mg PO Q3H PRN PRN Reason: mod pain Last Admin: 08/31/23 22:41 Dose: 1 mg Documented By: SALO Daptomycin 500 mg/ Sodium (Chloride) 60 mls @ 120 mls/hr IV Q24H [facility] Last Infusion: 08/31/23 18:15 Dose: Infused Documented By: LETICIA Lidocaine (Lidocaine 4 % Patch Adh..Patch) 1 patch TRANSDERMA DAILY [facility]; Protocol Last Admin: 09/01/23 08:21 Dose: 1 patch Documented By: TAMEKA Lorazepam (Lorazepam 2 Mg/Ml Vial) 1 mg IM ONCE PRN PRN Reason: preprocedure Last Admin: 08/22/23 10:34 Dose: 1 mg Documented By: SOURAV Melatonin (Melatonin 3 Mg Tablet) 6 mg PO BEDTIME PRN PRN Reason: Insomnia Last Admin: 08/29/23 21:25 Dose: 6 mg Documented By: DARYL Montelukast Sodium (Montelukast Sodium 10 Mg Tablet) 10 mg PO BEDTIME [facility] Last Admin: 08/31/23 22:42 Dose: 10 mg Documented By: SALO Morphine Sulfate (Morphine Sulfate 2 Mg/Ml Cartridge) 2 mg IVPUSH Q4H PRN; Protocol PRN Reason: mod pain Last Admin: 08/30/23 21:38 Dose: 2 mg Documented By: CARL Omeprazole (Omeprazole 20 Mg Capsule.Dr) 20 mg PO BID [facility] Last Admin: 09/01/23 08:21 Dose: 20 mg Documented By: TAMEKA Ondansetron HCl (Ondansetron Hcl 4 Mg/2 Ml Vial) 4 mg IVPUSH Q8H PRN PRN Reason: Nausea and Vomiting Last Admin: 08/30/23 17:57 Dose: 4 mg Documented By: RIN Oxycodone HCl (Oxycodone Hcl Immed Release 5 Mg Tablet) 5 mg PO Q4H PRN PRN Reason: mod pain Last Admin: 08/27/23 23:35 Dose: 5 mg Documented By: CASTHEBER Sodium Chloride (0.9 % Sodium Chloride Flush 3 Ml Syringe) 3 ml IVFLUSH QSHIFT [facility] Last Admin: 09/01/23 08:21 Dose: 3 ml Documented By: TAMEKA Tiotropium [place] (Tiotropium [place] 2.5 Mcg 1 Puff/2.5 Mcg Mist.Inhal) 2 puff INHALE RDAILY [facility] Last Admin: 09/01/23 08:36 Dose: Not Given Documented By: WILFRID Non-Admin Reason: Patient Asleep Vitamin D (Cholecalciferol (Vitamin D3) 25 Mcg Tablet) 25 mcg PO DAILY [facility] Last Admin: 09/01/23 08:21 Dose: 25 mcg Documented By: TAMEKA Labs 09/01/23 06:46 09/01/23 12:10 Labs: Laboratory Results - last 24 hr 08/27/23 09/01/23 09/01/23 09:17 06:46 12:10 MCV 100.0 H MCH 31.2 MCHC 31.2 RDW 15.7 Plt Count 229 MPV 9.8 Absolute Nucleated RBC 0.000 Nucleated RBC % (auto) 0.0 Anion Gap 11 L Estim Creat Clear Calc 65.6 Estimated GFR > 60 Random Glucose 73 Calcium 8.5 D Crossmatch See Detail Microbiology Microbiology Results: Microbiology 08/31/23 11:45 Catheter Tip Culture - Preliminary Catheter Tip - Subclavian No growth after 1 day 08/29/23 17:20 Blood Culture - Preliminary Blood - Venous No growth after 48 hours. 08/28/23 08:34 Blood Culture - Final Blood - Central Line Methicillin Res Staph Aureus Assessment and Plan (1) Pneumonia: Status: Acute (2) Acute on chronic anemia: Status: Acute (3) DVT (deep venous thrombosis): Status: Acute (4) Bacteremia: Status: Acute Plan 73yo F with COPD, HCV, hx IDU, hx MRSA abscesses, hx Cdiff, hx E coli colitis, hx osteomyelitis of humerus/clavicle/scapula with MSSA bacteremia and treated at [facility] [place], chronic anemia recently admitted here 08/03/23 for anemia .left AMA 08/14/23 despite fever concerning for infection. found to have MRSA bacteremia and called back to hospital and also found to have bilateral occlusive DVTs persistently bacteremic. MRSA bacteremia vanco 08/15-08/17, now on dapto 08/17- [changed due to difficult phlebotomy- couldn't monitor troughs] TTE 08/16: The tricuspid valve was not well visualized. Cannot exclude vegetation BCx from 08/14, 08/15, 08/18, 08/23, 08/24, 08/25, 08/26 , 08/28 positive, 08/29 negative and pending will need a PICC line for 6+ wk of IV ABX. s/p wbc scan 08/27, negative hold off on ancef adjuvent as pcn allergy PICC line placed TLC tip sent for culture Plan for NIC next week as postpone this morning as the patient ate Altered mentation DDx inpatient delerium, bacteremia, treat infection recurrent orientation Respiratory distress 2/2 Pneumonia CXR showing worsening Pneumonia in RML, less likely mass On Daptomycin as Abx Many Abx allergies, to discuss with ID addition of 2nd agent Incentive spirometry for now ID recommended continue Daptomycin occlusive BLE DVTs Imporivng on therapeutic enoxaparin 1 mg/kg 08/17. Vasc Surg consult, not a candidate for endovascular intervention given uncontrolled infection not candidate for IVC filter given bacteremia, no gross or unstable bleed, will continue AC and transfuse as needed acute on chronic anemia Stable transfused total of 3 pRBCs, H+H responded appropriately continue ppi Patient refused doing EGD and Colonoscopy this hospital stay transfuse as needed, no gross bleeding Follow H&H hypoNa, mild hypoMg repleted Multiple wounds Wound Care consulted last admission: Coccyx wound, unstageable > cleanse with normal saline, apply triad to periwound, lightly pack coccyx with Durafiber Ag cover with sacral foam dressing, daily Right arm AC, abrasion > cleanse with normal saline, apply skin prep to periwound, lightly packed with Durafiber Ag, cover with foam dressing, daily Left forearm> cleanse with normal saline, or cover scabbed area with hydrocolloid dressing, change every 3 days In addition, frequent turning/repositioning every 2 hours to offload bony prominences along with air loss mattress. COPD continue Flovent + Spiriva, prn albuterol GERD continue PPI Hx opioid abuse met Recovery Team, denies use since 2000, attributes recent +Utox to pain meds received in hospital HCV Ab+, viral load negative HBV immune from prior infection HIV negative VTE ppx LMWH dispo will need STR eventually for IV ABX reason for continued hospitalization:still bacteremic with worsening pneumonia Quality Stroke Does the patient have a stroke diagnosis?: No VTE Prior VTE?: No VTE Risk Level:: Medical - moderate - high VTE Device Contraindication: Treatment Not Indicated VTE Drug Contraindication: N/A - Med Ordered
[2023-09-01] MEDS: Albuterol/Iprat 2.5/0.5MG 3 ML AMPUL.NEB INHALE ×2 (16:22→20:29)
[2023-09-01] MEDS: DAPTOmycin 500 MG in 0.9 % Sodium Chloride 50 ML 120 MG IV (16:36)
[2023-09-01] MEDS: Acetaminophen 325 MG TABLET 650 MG PO (16:44)
[2023-09-01] MEDS: Enoxaparin Sodium 60 MG/0.6 ML SYRINGE SUBCUT (18:02)
[2023-09-01] MEDS: Fluticasone Propionate 250 MCG BLST.W.DEV 1 PUFF INHALE (20:29)
[2023-09-01] MEDS: Montelukast Sodium 10 MG TABLET PO (21:51)
[2023-09-02] VITALS (8 sets, daily range): BP systolic 112–128; BP diastolic 51–66; PULSE 76–89; RESP 16–20; TEMP 36.2–36.6; O2SAT 93–99
[2023-09-02] MEDS: Morphine Sulfate 2 MG/ML CARTRIDGE IVPUSH ×4 (01:36→21:35)
[2023-09-02] MEDS: Enoxaparin Sodium 60 MG/0.6 ML SYRINGE SUBCUT ×2 (05:40→18:09)
[2023-09-02] MEDS: Albuterol/Iprat 2.5/0.5MG 3 ML AMPUL.NEB INHALE ×3 (08:08→20:12)
[2023-09-02] MEDS: Fluticasone Propionate 250 MCG BLST.W.DEV 1 PUFF INHALE ×2 (08:08→20:12)
[2023-09-02] MEDS: Tiotropium Bromide 2.5 mcg 1 PUFF/2.5 MCG MIST.INHAL 2 PUFF INHALE (08:08)
[2023-09-02] MEDS: Acetaminophen 325 MG TABLET 650 MG PO (08:59)
[2023-09-02] MEDS: Lidocaine 4 % Patch ADH..PATCH 1 PATCH TRANSDERMA (08:59)
[2023-09-02] MEDS: Cholecalciferol (Vitamin D3) 25 MCG TABLET PO (08:59)
[2023-09-02] MEDS: 0.9 % Sodium Chloride Flush 3 ML SYRINGE IVFLUSH ×2 (08:59→21:36)
[2023-09-02] MEDS: Omeprazole 20 MG CAPSULE.DR PO ×2 (08:59→19:55)
[2023-09-02] MEDS: Ferrous Sulfate 324 MG TABLET.DR PO ×2 (08:59→19:54)
[2023-09-02] MEDS: HYDROmorphone HCl 2 MG TABLET 1 MG PO ×2 (09:01→18:08)
[2023-09-02] MEDS: guaiFENesin 200 MG/10 ML 10 ML LIQUID PO ×2 (12:42→19:54)
--- NOTE | 2023-09-02 13:44 | HO.PM.IMPN ---
Subjective Subjective Date of Service: 09/02/23 Interval History: Seen and evaluated more alert and interactive this morning Cultures negative at this point Left leg swelling and pain improving Review of Systems Review of Systems: Yes all other systems are reviewed and are negative Physical Exam Vital Signs: Vital Signs: Last Vital Signs Temp 97.9 F 09/02/23 08:00 Pulse 76 09/02/23 11:52 Resp 16 09/02/23 11:52 BP 125/61 09/02/23 08:00 Pulse Ox 99 09/02/23 08:00 O2 Del Method Nasal Cannula 09/02/23 08:00 O2 Flow Rate 3 09/02/23 00:12 BMI result Body Mass Index 21.9 Const: Other: Constitutional : alert, not in distress Neck : Normal inspection, Supple Cardiovascular : RRR, no JVP, Left lower extremity edema with warmth and tenderness and decreased swelling Respiratory : good bilateral air entry, no crackles,expiratory wheezes bilaterally Gastrointestinal: soft, lax, Normal bowel sounds, Non tender Skin : Warm, Dry, stage 1 sacral wound Neurological :alert, oriented , No focal deficit Objective Data Active Medications Acetaminophen (Acetaminophen 325 Mg Tablet) 650 mg PO Q6H PRN PRN Reason: Pain, Mild (Pain Scale 1-3) Last Admin: 09/02/23 08:59 Dose: 650 mg Documented By: TAMEKA Albuterol Sulfate (Albuterol Sulfate 90 Mcg 8 Gm Inhaler) 2 puff INHALE Q4H PRN PRN Reason: Shortness Of Breath Or Wheezing Albuterol/Ipratropium (Albuterol/Iprat 2.5/0.5mg 3 Ml Ampul.Neb) 3 ml INHALE RQ4H WHILE AWAKE [facility] Last Admin: 09/02/23 11:51 Dose: 3 ml Documented By: WILFRID Enoxaparin Sodium (Enoxaparin Sodium 60 Mg/0.6 Ml Syringe) 60 mg 1 mg/kg (60 mg) SUBCUT Q12H [facility] Last Admin: 09/02/23 05:40 Dose: 60 mg Documented By: SALO Ferrous Sulfate (Ferrous Sulfate 324 Mg Tablet.) 324 mg PO BID [facility] Last Admin: 09/02/23 08:59 Dose: 324 mg Documented By: TAMEKA Fluticasone Propionate (Fluticasone Propionate 250 Mcg Blst.W.Dev) 1 puff INHALE RBID [facility] Last Admin: 09/02/23 08:08 Dose: 1 puff Documented By: WILFRID Guaifenesin (Guaifenesin 200 Mg/10 Ml 10 Ml Liquid) 10 ml PO Q6H PRN PRN Reason: Cough Last Admin: 09/02/23 12:42 Dose: 10 ml Documented By: TAMEKA Hydromorphone HCl (Hydromorphone Hcl 2 Mg Tablet) 1 mg PO Q3H PRN PRN Reason: mod pain Last Admin: 09/02/23 09:01 Dose: 1 mg Documented By: TAMEKA Daptomycin 500 mg/ Sodium (Chloride) 60 mls @ 120 mls/hr IV Q24H [facility] Last Infusion: 09/01/23 17:16 Dose: Infused Documented By: TAMEKA Lidocaine (Lidocaine 4 % Patch Adh..Patch) 1 patch TRANSDERMA DAILY [facility]; Protocol Last Admin: 09/02/23 08:59 Dose: 1 patch Documented By: TAMEKA Lorazepam (Lorazepam 2 Mg/Ml Vial) 1 mg IM ONCE PRN PRN Reason: preprocedure Last Admin: 08/22/23 10:34 Dose: 1 mg Documented By: SOURAV Melatonin (Melatonin 3 Mg Tablet) 6 mg PO BEDTIME PRN PRN Reason: Insomnia Last Admin: 08/29/23 21:25 Dose: 6 mg Documented By: DARYL Montelukast Sodium (Montelukast Sodium 10 Mg Tablet) 10 mg PO BEDTIME [facility] Last Admin: 09/01/23 21:51 Dose: 10 mg Documented By: SALO Morphine Sulfate (Morphine Sulfate 2 Mg/Ml Cartridge) 2 mg IVPUSH Q4H PRN; Protocol PRN Reason: mod pain Last Admin: 09/02/23 10:22 Dose: 2 mg Documented By: TAMEKA Omeprazole (Omeprazole 20 Mg Capsule.Dr) 20 mg PO BID [facility] Last Admin: 09/02/23 08:59 Dose: 20 mg Documented By: TAMEKA Ondansetron HCl (Ondansetron Hcl 4 Mg/2 Ml Vial) 4 mg IVPUSH Q8H PRN PRN Reason: Nausea and Vomiting Last Admin: 08/30/23 17:57 Dose: 4 mg Documented By: RIN Oxycodone HCl (Oxycodone Hcl Immed Release 5 Mg Tablet) 5 mg PO Q4H PRN PRN Reason: mod pain Last Admin: 08/27/23 23:35 Dose: 5 mg Documented By: DOMO Sodium Chloride (0.9 % Sodium Chloride Flush 3 Ml Syringe) 3 ml IVFLUSH QSHIFT [facility] Last Admin: 09/02/23 08:59 Dose: 3 ml Documented By: TAMEKA Tiotropium [place] (Tiotropium [place] 2.5 Mcg 1 Puff/2.5 Mcg Mist.Inhal) 2 puff INHALE RDAILY [facility] Last Admin: 09/02/23 08:08 Dose: 2 puff Documented By: WILFRID Vitamin D (Cholecalciferol (Vitamin D3) 25 Mcg Tablet) 25 mcg PO DAILY [facility] Last Admin: 09/02/23 08:59 Dose: 25 mcg Documented By: TAMEKA Labs 09/01/23 06:46 09/01/23 12:10 Microbiology Microbiology Results: Microbiology 09/01/23 09:41 Blood Culture - Preliminary Blood - Venous No growth after 24 hours. 08/28/23 08:34 Blood Culture - Final Blood - Central Line No growth after 5 days. 08/31/23 11:45 Catheter Tip Culture - Preliminary Catheter Tip - Subclavian No growth after 2 days Assessment and Plan (1) Pneumonia: Status: Acute (2) Acute on chronic anemia: Status: Acute (3) DVT (deep venous thrombosis): Status: Acute (4) Bacteremia: Status: Acute Plan 73yo F with COPD, HCV, hx IDU, hx MRSA abscesses, hx Cdiff, hx E coli colitis, hx osteomyelitis of humerus/clavicle/scapula with MSSA bacteremia and treated at [facility], chronic anemia recently admitted here 08/03/23 for anemia .left AMA 08/14/23 despite fever concerning for infection. found to have MRSA bacteremia and called back to hospital and also found to have bilateral occlusive DVTs persistently bacteremic. MRSA bacteremia vanco 08/15-08/17, now on dapto 08/17- [changed due to difficult phlebotomy- couldn't monitor troughs] TTE 08/16: The tricuspid valve was not well visualized. Cannot exclude vegetation BCx from 08/14, 08/15, 08/18, 08/23, 08/24, 08/25, 08/26 , 08/28 positive, 08/29 negative and pending will need a PICC line for 6+ wk of IV ABX. s/p wbc scan 08/27, negative hold off on ancef adjuvent as pcn allergy PICC line placed TLC tip sent for culture Plan for NIC next week if +ve Cx again Altered mentation DDx inpatient delerium, bacteremia, treat infection recurrent orientation Respiratory distress 2/2 Pneumonia CXR showing worsening Pneumonia in RML, less likely mass On Daptomycin as Abx Many Abx allergies, to discuss with ID addition of 2nd agent Incentive spirometry for now ID recommended continue Daptomycin occlusive BLE DVTs Imporivng on therapeutic enoxaparin 1 mg/kg 08/17. Vasc Surg consult, not a candidate for endovascular intervention given uncontrolled infection not candidate for IVC filter given bacteremia, no gross or unstable bleed, will continue AC and transfuse as needed acute on chronic anemia Stable transfused total of 3 pRBCs, H+H responded appropriately continue ppi Patient refused doing EGD and Colonoscopy this hospital stay transfuse as needed, no gross bleeding Follow H&H hypoNa, mild hypoMg repleted Multiple wounds Wound Care consulted last admission: Coccyx wound, unstageable > cleanse with normal saline, apply triad to periwound, lightly pack coccyx with Durafiber Ag cover with sacral foam dressing, daily Right arm AC, abrasion > cleanse with normal saline, apply skin prep to periwound, lightly packed with Durafiber Ag, cover with foam dressing, daily Left forearm> cleanse with normal saline, or cover scabbed area with hydrocolloid dressing, change every 3 days In addition, frequent turning/repositioning every 2 hours to offload bony prominences along with air loss mattress. COPD continue Flovent + Spiriva, prn albuterol GERD continue PPI Hx opioid abuse met Recovery Team, denies use since 2000, attributes recent +Utox to pain meds received in hospital HCV Ab+, viral load negative HBV immune from prior infection HIV negative VTE ppx LMWH dispo will need STR eventually for IV ABX reason for continued hospitalization: Pending finalized blood cultures to plan safe discharge Quality Stroke Does the patient have a stroke diagnosis?: No VTE Prior VTE?: No VTE Risk Level:: Medical - moderate - high VTE Device Contraindication: Treatment Not Indicated VTE Drug Contraindication: N/A - Med Ordered
[2023-09-02] MEDS: DAPTOmycin 500 MG in 0.9 % Sodium Chloride 50 ML 120 MG IV (16:09)
[2023-09-02] MEDS: Montelukast Sodium 10 MG TABLET PO (19:55)
[2023-09-03] MEDS: Morphine Sulfate 2 MG/ML CARTRIDGE IVPUSH ×3 (01:47→16:09)
[2023-09-03 04:00] VITALS: BP 148/74; PULSE 86; RESP 16; TEMP 36.5; O2SAT 94
[2023-09-03] MEDS: guaiFENesin 200 MG/10 ML 10 ML LIQUID PO ×2 (05:52→09:28)
[2023-09-03] MEDS: Enoxaparin Sodium 60 MG/0.6 ML SYRINGE SUBCUT ×2 (05:58→18:44)
[2023-09-03 07:47] VITALS: BP 126/69; PULSE 83; RESP 20; TEMP 36.9; O2SAT 96
[2023-09-03 09:20] LABS: Anion Gap 12 (12-20); Blood Urea Nitrogen 11 mg/dL (9-16); Calcium 8.3 mg/dL (8.4-10.2); Carbon Dioxide 26 mmol/L (22-29); Chloride 103 mmol/L (96-108); Creatinine Clr Calc Pharmacy 71.1; Estimated Glomerular Filt Rate > 60; Glucose Random 90 mg/dL (60-115); Potassium 4.5 mmol/L (3.3-5.1); Sodium 136 mmol/L (135-145)
[2023-09-03] MEDS: HYDROmorphone HCl 2 MG TABLET 1 MG PO ×2 (09:28→21:49)
[2023-09-03] MEDS: Omeprazole 20 MG CAPSULE.DR PO ×2 (09:28→21:48)
[2023-09-03] MEDS: Ferrous Sulfate 324 MG TABLET.DR PO ×2 (09:28→21:48)
[2023-09-03] MEDS: Cholecalciferol (Vitamin D3) 25 MCG TABLET PO (09:28)
[2023-09-03 09:29] LABS: IgA 394 mg/dL (70-320); IgG 2749 mg/dL (600-1540); IgM 80 mg/dL (50-300)
[2023-09-03] MEDS: 0.9 % Sodium Chloride Flush 3 ML SYRINGE IVFLUSH ×3 (09:31→21:49)
--- NOTE | 2023-09-03 10:45 | MHC.CM.PN ---
EMR reviewed and per MD rounds, pt is not medically cleared for D/C today due to pending blood cultures, she will need 6 weeks of IV antibiotics. Anticipating pt will be ready for D/C in another day or 2. Maurizio continues to follow on [facility]. [facility] will continue to follow.
[2023-09-03] MEDS: Albuterol/Iprat 2.5/0.5MG 3 ML AMPUL.NEB INHALE (11:18)
[2023-09-03 11:19] VITALS: PULSE 88; RESP 18; O2SAT 97
--- NOTE | 2023-09-03 11:51 | MHC.CLN ---
F/U PO INTAKE VARIABLE DIET RX: REGULAR-APPROPRIATE PT RECEIVING ENSURE MAX BID TO PROMOTE WOUND HEALING SUPP PROVIDES 300KCALS, 60G PROTEIN WITH 100% ACCEPTANCE CONTINUE TO MONITOR PO INTAKE AND ENCOURAGE SUPPLEMENT
--- NOTE | 2023-09-03 14:39 | P.PNIM_ITS ---
Subjective Subjective Date of Service: 09/03/23 Interval History: Seen and evaluated more alert and interactive Cultures negative at 48hours Left leg swelling and pain improving Review of Systems Review of Systems: Yes all other systems are reviewed and are negative Physical Exam 2 Vital Signs: Vital Signs: Last Vital Signs Temp 98.4 F 09/03/23 07:47 Pulse 88 09/03/23 11:19 Resp 18 09/03/23 11:19 BP 126/69 09/03/23 07:47 Pulse Ox 96 09/03/23 07:47 O2 Del Method Room Air 09/03/23 07:47 O2 Flow Rate 3 09/02/23 00:12 BMI result Body Mass Index 21.9 Const: Other: Constitutional : alert, not in distress Neck : Normal inspection, Supple Cardiovascular : RRR, no JVP, Left lower extremity edema with warmth and tenderness and decreased swelling Respiratory : good bilateral air entry, no crackles,expiratory wheezes bilaterally Gastrointestinal: soft, lax, Normal bowel sounds, Non tender Skin : Warm, Dry, stage 1 sacral wound Neurological :alert, oriented , No focal deficit Objective Data Active Medications Acetaminophen (Acetaminophen 325 Mg Tablet) 650 mg PO Q6H PRN PRN Reason: Pain, Mild (Pain Scale 1-3) Last Admin: 09/02/23 08:59 Dose: 650 mg Documented By: TAMEKA Albuterol Sulfate (Albuterol Sulfate 90 Mcg 8 Gm Inhaler) 2 puff INHALE Q4H PRN PRN Reason: Shortness Of Breath Or Wheezing Albuterol/Ipratropium (Albuterol/Iprat 2.5/0.5mg 3 Ml Ampul.Neb) 3 ml INHALE RQ4H WHILE AWAKE [facility] Last Admin: 09/03/23 11:18 Dose: 3 ml Documented By: BETTY Enoxaparin Sodium (Enoxaparin Sodium 60 Mg/0.6 Ml Syringe) 60 mg 1 mg/kg (60 mg) SUBCUT Q12H [facility] Last Admin: 09/03/23 05:58 Dose: 60 mg Documented By: CLAUDIA Ferrous Sulfate (Ferrous Sulfate 324 Mg Tablet.) 324 mg PO BID [facility] Last Admin: 09/03/23 09:28 Dose: 324 mg Documented By: TAMEKA Fluticasone Propionate (Fluticasone Propionate 250 Mcg Blst.W.Dev) 1 puff INHALE RBID [facility] Last Admin: 09/03/23 07:32 Dose: Not Given Documented By: BETTY Non-Admin Reason: Patient Refused Guaifenesin (Guaifenesin 200 Mg/10 Ml 10 Ml Liquid) 10 ml PO Q6H PRN PRN Reason: Cough Last Admin: 09/03/23 09:28 Dose: 10 ml Documented By: TAMEKA Hydromorphone HCl (Hydromorphone Hcl 2 Mg Tablet) 1 mg PO Q3H PRN PRN Reason: mod pain Last Admin: 09/03/23 09:28 Dose: 1 mg Documented By: TAMEKA Daptomycin 500 mg/ Sodium (Chloride) 60 mls @ 120 mls/hr IV Q24H [facility] Last Infusion: 09/02/23 16:58 Dose: Infused Documented By: TAMEKA Lidocaine (Lidocaine 4 % Patch Adh..Patch) 1 patch TRANSDERMA DAILY [facility]; Protocol Last Admin: 09/03/23 09:44 Dose: Not Given Documented By: TAMEKA Non-Admin Reason: Patient Refused Lorazepam (Lorazepam 2 Mg/Ml Vial) 1 mg IM ONCE PRN PRN Reason: preprocedure Last Admin: 08/22/23 10:34 Dose: 1 mg Documented By: SOURAV Melatonin (Melatonin 3 Mg Tablet) 6 mg PO BEDTIME PRN PRN Reason: Insomnia Last Admin: 08/29/23 21:25 Dose: 6 mg Documented By: DARYL Montelukast Sodium (Montelukast Sodium 10 Mg Tablet) 10 mg PO BEDTIME [facility] Last Admin: 09/02/23 19:55 Dose: 10 mg Documented By: CLAUDIA Morphine Sulfate (Morphine Sulfate 2 Mg/Ml Cartridge) 2 mg IVPUSH Q4H PRN; Protocol PRN Reason: mod pain Last Admin: 09/03/23 05:52 Dose: 2 mg Documented By: CLAUDIA Omeprazole (Omeprazole 20 Mg Capsule.Dr) 20 mg PO BID [facility] Last Admin: 09/03/23 09:28 Dose: 20 mg Documented By: TAMEKA Ondansetron HCl (Ondansetron Hcl 4 Mg/2 Ml Vial) 4 mg IVPUSH Q8H PRN PRN Reason: Nausea and Vomiting Last Admin: 08/30/23 17:57 Dose: 4 mg Documented By: RIN Oxycodone HCl (Oxycodone Hcl Immed Release 5 Mg Tablet) 5 mg PO Q4H PRN PRN Reason: mod pain Last Admin: 08/27/23 23:35 Dose: 5 mg Documented By: DOMO Sodium Chloride (0.9 % Sodium Chloride Flush 3 Ml Syringe) 3 ml IVFLUSH QSHIFT [facility] Last Admin: 09/03/23 09:31 Dose: 3 ml Documented By: TAMEKA Tiotropium [place] (Tiotropium [place] 2.5 Mcg 1 Puff/2.5 Mcg Mist.Inhal) 2 puff INHALE RDAILY [facility] Last Admin: 09/03/23 07:32 Dose: Not Given Documented By: BETTY Non-Admin Reason: Patient Refused Vitamin D (Cholecalciferol (Vitamin D3) 25 Mcg Tablet) 25 mcg PO DAILY [facility] Last Admin: 09/03/23 09:28 Dose: 25 mcg Documented By: TAMEKA Labs 09/01/23 06:46 09/03/23 08:31 Labs: Laboratory Results - last 24 hr 08/29/23 09/03/23 17:20 08:31 Anion Gap 12 Estim Creat Clear Calc 71.1 Estimated GFR > 60 Random Glucose 90 Calcium 8.3 L IgG Total 2749 H IgA Total 394 H IgM 80 DALLIN Interpretation SEE NOTE Microbiology Microbiology Results: Microbiology 09/01/23 09:41 Blood Culture - Preliminary Blood - Venous No growth after 48 hours. 08/31/23 11:45 Catheter Tip Culture - Final Catheter Tip - Subclavian No growth after 3 days. 08/28/23 08:34 Blood Culture - Final Blood - Central Line No growth after 5 days. Assessment and Plan (1) Pneumonia: Status: Acute (2) Acute on chronic anemia: Status: Acute (3) DVT (deep venous thrombosis): Status: Acute (4) Bacteremia: Status: Acute Plan 73yo F with COPD, HCV, hx IDU, hx MRSA abscesses, hx Cdiff, hx E coli colitis, hx osteomyelitis of humerus/clavicle/scapula with MSSA bacteremia [place] [facility] chronic anemia recently admitted here 08/03/23 for anemia .left AMA 08/14/23 despite fever concerning for infection. found to have MRSA bacteremia and called back to hospital and also found to have bilateral occlusive DVTs persistently bacteremic. MRSA bacteremia dapto 08/17- [changed due to difficult phlebotomy- couldn't monitor troughs] TTE 08/16: The tricuspid valve was not well visualized. Cannot exclude vegetation TLC tip culture negative Blood culture from 08/29 negative and 08/31 negative PICC line for 6+ wk of IV ABX Altered mentation resolved DDx inpatient delerium, bacteremia, treat infection recurrent orientation Respiratory distress 2/2 Pneumonia CXR showing worsening Pneumonia in RML, less likely mass On Daptomycin as Abx Incentive spirometry for now ID recommended continue Daptomycin occlusive BLE DVTs Imporivng on therapeutic enoxaparin 1 mg/kg 08/17. Vasc Surg consult, not a candidate for endovascular intervention given uncontrolled infection not candidate for IVC filter given bacteremia, no gross or unstable bleed, will continue AC and transfuse as needed acute on chronic anemia Stable transfused total of 3 pRBCs, H+H responded appropriately continue ppi Patient refused doing EGD and Colonoscopy this hospital stay transfuse as needed, no gross bleeding Follow H&H hypoNa, mild hypoMg repleted Multiple wounds Wound Care consulted last admission: Coccyx wound, unstageable > cleanse with normal saline, apply triad to periwound, lightly pack coccyx with Durafiber Ag cover with sacral foam dressing, daily Right arm AC, abrasion > cleanse with normal saline, apply skin prep to periwound, lightly packed with Durafiber Ag, cover with foam dressing, daily Left forearm> cleanse with normal saline, or cover scabbed area with hydrocolloid dressing, change every 3 days In addition, frequent turning/repositioning every 2 hours to offload bony prominences along with air loss mattress. COPD continue Flovent + Spiriva, prn albuterol GERD continue PPI Hx opioid abuse met Recovery Team, denies use since 2000, attributes recent +Utox to pain meds received in hospital HCV Ab+, viral load negative HBV immune from prior infection HIV negative VTE ppx LMWH dispo will need STR eventually for IV ABX reason for continued hospitalization: Pending finalized blood cultures to plan safe discharge Quality Stroke Does the patient have a stroke diagnosis?: No VTE Prior VTE?: No VTE Risk Level:: Medical - moderate - high VTE Device Contraindication: Treatment Not Indicated VTE Drug Contraindication: N/A - Med Ordered
[2023-09-03 15:08] VITALS: BP 109/60; PULSE 88; RESP 20; TEMP 36.3; O2SAT 98
[2023-09-03] MEDS: DAPTOmycin 500 MG in 0.9 % Sodium Chloride 50 ML 120 MG IV (16:09)
[2023-09-03 19:58] VITALS: BP 119/59; PULSE 91; RESP 18; TEMP 37.3; O2SAT 97
[2023-09-03] MEDS: Melatonin 3 MG TABLET 6 MG PO (21:48)
[2023-09-03] MEDS: Acetaminophen 325 MG TABLET 650 MG PO (21:48)
[2023-09-03] MEDS: Montelukast Sodium 10 MG TABLET PO (21:48)
[2023-09-03 22:14] LABS: Prot Elec - Albumin 1.6 g/dL (3.8-4.8); Prot Elec - Alpha1 0.6 g/dL (0.2-0.3); Prot Elec - Alpha2 0.8 g/dL (0.5-0.9); Prot Elec - Beta 1 0.3 g/dL (0.4-0.6); Prot Elec - Beta 2 0.5 g/dL (0.2-0.5); Prot Elec - Gamma 2.4 g/dL (0.8-1.7); Prot Elec - Total Protein 6.1 g/dL (6.1-8.1)
[2023-09-03 22:48] VITALS: RESP 18
[2023-09-04] VITALS (9 sets, daily range): BP systolic 118–142; BP diastolic 58–70; PULSE 85–93; RESP 18–20; TEMP 36.2–36.9; O2SAT 92–97
[2023-09-04] MEDS: Enoxaparin Sodium 60 MG/0.6 ML SYRINGE SUBCUT ×2 (06:46→18:38)
[2023-09-04] MEDS: Albuterol/Iprat 2.5/0.5MG 3 ML AMPUL.NEB INHALE ×3 (08:19→19:40)
[2023-09-04] MEDS: Tiotropium Bromide 2.5 mcg 1 PUFF/2.5 MCG MIST.INHAL 2 PUFF INHALE (08:19)
[2023-09-04] MEDS: Fluticasone Propionate 250 MCG BLST.W.DEV 1 PUFF INHALE ×2 (08:19→19:40)
--- NOTE | 2023-09-04 08:44 | MHC.CM.PN ---
EMR REVIEWED, PER HOSPITALIST PT MEDICALLY CLEARED FOR DC, [facility] FOLLOWING AND CM AWAITING RESPONSE FOR BED AVAILABILITY, PT HAS LIMITED CHOICES D/T BEING POSITIVE FOR [facility], CM WILL CONT TO FOLLOW DC NEEDS.
[2023-09-04] MEDS: Ferrous Sulfate 324 MG TABLET.DR PO ×2 (09:36→22:06)
[2023-09-04] MEDS: Omeprazole 20 MG CAPSULE.DR PO ×2 (09:36→22:06)
[2023-09-04] MEDS: Cholecalciferol (Vitamin D3) 25 MCG TABLET PO (09:36)
[2023-09-04] MEDS: 0.9 % Sodium Chloride Flush 3 ML SYRINGE IVFLUSH ×2 (09:45→22:07)
--- NOTE | 2023-09-04 10:24 | MHC.CM.PN ---
CM ATTEMPTED TO CONTACT ADMISSIONS LIAISON AT [facility] [phone] 10:22AM, PER MILITARY ANALYST NIKC IS COVERING, [facility]ART TRANSFERRED TO HER EXTENSION [id number] HOWEVER NO ANSWER, DETAILED MESSAGE LEFT W/REQUEST FOR CALL BACK, CM WILL CONT TO FOLLOW.
--- NOTE | 2023-09-04 13:55 | P.PNIM_ITS ---
Subjective Subjective Date of Service: 09/04/23 Interval History: Seen and evaluated alert and interactive Cultures negative > 48hours Left leg swelling and pain improving Review of Systems Review of Systems: Yes all other systems are reviewed and are negative Physical Exam 2 Vital Signs: Vital Signs: Last Vital Signs Temp 97.2 F 09/04/23 07:05 Pulse 91 09/04/23 08:21 Resp 18 09/04/23 08:21 BP 128/62 09/04/23 07:05 Pulse Ox 92 09/04/23 07:05 O2 Del Method Room Air 09/04/23 07:05 O2 Flow Rate 1 09/04/23 03:44 BMI result Body Mass Index 21.9 Const: Other: Constitutional : alert, not in distress Neck : Normal inspection, Supple Cardiovascular : RRR, no JVP, Left lower extremity less edema with no more warmth or tenderness Respiratory : good bilateral air entry, no crackles,expiratory wheezes bilaterally Gastrointestinal: soft, lax, Normal bowel sounds, Non tender Skin : Warm, Dry, stage 1 sacral wound Neurological :alert, oriented , No focal deficit Objective Data Active Medications Acetaminophen (Acetaminophen 325 Mg Tablet) 650 mg PO Q6H PRN PRN Reason: Pain, Mild (Pain Scale 1-3) Last Admin: 09/03/23 21:48 Dose: 650 mg Documented By: FORREST Albuterol Sulfate (Albuterol Sulfate 90 Mcg 8 Gm Inhaler) 2 puff INHALE Q4H PRN PRN Reason: Shortness Of Breath Or Wheezing Albuterol/Ipratropium (Albuterol/Iprat 2.5/0.5mg 3 Ml Ampul.Neb) 3 ml INHALE RQ4H WHILE AWAKE [facility] Last Admin: 09/04/23 08:19 Dose: 3 ml Documented By: ARMANI Enoxaparin Sodium (Enoxaparin Sodium 60 Mg/0.6 Ml Syringe) 60 mg 1 mg/kg (60 mg) SUBCUT Q12H [facility] Last Admin: 09/04/23 06:46 Dose: 60 mg Documented By: FORREST Ferrous Sulfate (Ferrous Sulfate 324 Mg Tablet.) 324 mg PO BID [facility] Last Admin: 09/04/23 09:36 Dose: 324 mg Documented By: BEHZAD Fluticasone Propionate (Fluticasone Propionate 250 Mcg Blst.W.Dev) 1 puff INHALE RBID [facility] Last Admin: 09/04/23 08:19 Dose: 1 puff Documented By: ARMANI Guaifenesin (Guaifenesin 200 Mg/10 Ml 10 Ml Liquid) 10 ml PO Q6H PRN PRN Reason: Cough Last Admin: 09/03/23 09:28 Dose: 10 ml Documented By: TAMEKA Hydromorphone HCl (Hydromorphone Hcl 2 Mg Tablet) 1 mg PO Q3H PRN PRN Reason: mod pain Last Admin: 09/03/23 21:49 Dose: 1 mg Documented By: FORREST Daptomycin 500 mg/ Sodium (Chloride) 60 mls @ 120 mls/hr IV Q24H [facility] Last Infusion: 09/03/23 17:08 Dose: Infused Documented By: TAMEKA Lidocaine (Lidocaine 4 % Patch Adh..Patch) 1 patch TRANSDERMA DAILY [facility]; Protocol Last Admin: 09/04/23 09:36 Dose: Not Given Documented By: BEHZAD Non-Admin Reason: Patient Refused Melatonin (Melatonin 3 Mg Tablet) 6 mg PO BEDTIME PRN PRN Reason: Insomnia Last Admin: 09/03/23 21:48 Dose: 6 mg Documented By: FORREST Montelukast Sodium (Montelukast Sodium 10 Mg Tablet) 10 mg PO BEDTIME [facility] Last Admin: 09/03/23 21:48 Dose: 10 mg Documented By: FORREST Omeprazole (Omeprazole 20 Mg Capsule.Dr) 20 mg PO BID [facility] Last Admin: 09/04/23 09:36 Dose: 20 mg Documented By: BEHZAD Ondansetron HCl (Ondansetron Hcl 4 Mg/2 Ml Vial) 4 mg IVPUSH Q8H PRN PRN Reason: Nausea and Vomiting Last Admin: 08/30/23 17:57 Dose: 4 mg Documented By: RIN Sodium Chloride (0.9 % Sodium Chloride Flush 3 Ml Syringe) 3 ml IVFLUSH QSHIFT [facility] Last Admin: 09/04/23 09:45 Dose: 3 ml Documented By: BEHZAD Tiotropium [place] (Tiotropium [place] 2.5 Mcg 1 Puff/2.5 Mcg Mist.Inhal) 2 puff INHALE RDAILY [facility] Last Admin: 09/04/23 08:19 Dose: 2 puff Documented By: ARMANI Vitamin D (Cholecalciferol (Vitamin D3) 25 Mcg Tablet) 25 mcg PO DAILY [facility] Last Admin: 09/04/23 09:36 Dose: 25 mcg Documented By: BEHZAD Labs 09/01/23 06:46 09/03/23 08:31 Labs: Laboratory Results - last 24 hr 08/29/23 17:20 Total Protein (PEP) 6.1 Albumin (PEP) 1.6 L Pxlcz-2-Jsxtcbigf 0.6 H Ownbx-1-Emeocrknj 0.8 Djrs-0-Ypmqfooz 0.3 L Pyjq-3-Uceqfxjt 0.5 Gamma Globulins 2.4 H Abnorm Protein Band 1 TNP Abnorm Protein Band 2 TNP Abnorm Protein Band 3 TNP PEP Interpretation SEE NOTE Microbiology Microbiology Results: Microbiology 08/29/23 17:20 Blood Culture - Final Blood - Venous No growth after 5 days. 09/01/23 09:41 Blood Culture - Preliminary Blood - Venous No growth after 48 hours. Assessment and Plan (1) Acute on chronic anemia: Status: Acute (2) DVT (deep venous thrombosis): Status: Acute (3) Bacteremia: Status: Acute Plan 73yo F with COPD, HCV, hx IDU, hx MRSA abscesses, hx Cdiff, hx E coli colitis, hx osteomyelitis of humerus/clavicle/scapula with MSSA bacteremia and treated at [facility] [place], chronic anemia recently admitted here 08/03/23 for anemia .left AMA 08/14/23 despite fever concerning for infection. found to have MRSA bacteremia and called back to hospital and also found to have bilateral occlusive DVTs persistently bacteremic. MRSA bacteremia dapto 08/17- [changed due to difficult phlebotomy- couldn't monitor troughs] TTE 08/16: The tricuspid valve was not well visualized. Cannot exclude vegetation TLC tip culture negative Blood culture from 08/29 negative and 08/31 negative PICC line in place for 6+ wk of IV ABX Altered mentation resolved DDx inpatient delerium, bacteremia, treat infection recurrent orientation Respiratory distress 2/2 Pneumonia CXR showing worsening Pneumonia in RML, less likely mass On Daptomycin as Abx Incentive spirometry for now ID recommended continue Daptomycin occlusive BLE DVTs Imporivng on therapeutic enoxaparin 1 mg/kg 08/17. Vasc Surg consult, not a candidate for endovascular intervention given uncontrolled infection not candidate for IVC filter given bacteremia, no gross or unstable bleed, will continue AC and transfuse as needed acute on chronic anemia Stable transfused total of 3 pRBCs, H+H responded appropriately continue ppi Patient refused doing EGD and Colonoscopy this hospital stay transfuse as needed, no gross bleeding Follow H&H hypoNa, mild hypoMg repleted Multiple wounds Wound Care consulted last admission: Coccyx wound, unstageable > cleanse with normal saline, apply triad to periwound, lightly pack coccyx with Durafiber Ag cover with sacral foam dressing, daily Right arm AC, abrasion > cleanse with normal saline, apply skin prep to periwound, lightly packed with Durafiber Ag, cover with foam dressing, daily Left forearm> cleanse with normal saline, or cover scabbed area with hydrocolloid dressing, change every 3 days In addition, frequent turning/repositioning every 2 hours to offload bony prominences along with air loss mattress. COPD continue Flovent + Spiriva, prn albuterol GERD continue PPI Hx opioid abuse met Recovery Team, denies use since 2000, attributes recent +Utox to pain meds received in hospital HCV Ab+, viral load negative HBV immune from prior infection HIV negative VTE ppx LMWH dispo will need STR eventually for IV ABX reason for continued hospitalization: On IV antibiotics for tretment of MRSA bacteremia pending safe discharge plan Quality Stroke Does the patient have a stroke diagnosis?: No VTE Prior VTE?: No VTE Risk Level:: Medical - moderate - high VTE Device Contraindication: Treatment Not Indicated VTE Drug Contraindication: N/A - Med Ordered
--- NOTE | 2023-09-04 15:14 | P.CDIM_ITS ---
PROVIDER RESPONSE TEXT: To clarify, the appropriate diagnosis supported by the clinical indicators: Other (explain): No evidence of Endocarditis with negative Echo QUERY TEXT: PHYSICIAN'S DOCUMENTATION REQUEST Date of Query: 09/04/2023 07:58 AM EST Patient Name: Elli Rivers Admit Date: 08/16/2023 Dear Nessa Roberts, A review of the medical record indicates additional documentation may be needed. Please review below and update the documentation accordingly. 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 There is likelihood of endocarditis although she is high risk given her prior GI bleeding and gastric ulcers. Temp 08/16 - 103.1/101.8 HR 108 109 121 WBC 15.3 17.5 NIC/PICC line Clarify which of the following accurately represents the acuity and specifics of the noted diagnosis of Endocarditis: Endocarditis Septic, bacterial, mitral, pulmonary, multiple valves etc. Acute endocarditis Subacute infective endocarditis Other (explain) Clinically unable to determine (explain) Thank you, Marie Gaming, CCS, CDIS Use of terms such as suspected, likely, concern for, or probable (associated with a specific diagnosi s that is being evaluated, monitored, or treated as if it exists) are acceptable and can be coded in the inpatient se tting, when documented at the time of discharge. Please use your independent medical judgment in providing your response. THIS QUERY IS PART OF THE PERMANENT MEDICAL RECORD
--- NOTE | 2023-09-04 15:49 | HO.WOUND ---
Wound Consult: Follow up 73yr old [place] [facility] [place]15/[place] 22:20- See progress notes and H&P for detailed history. Arrival to bedside patient is agreeable to assessment and photo documentation. She reports she has followed in the wound clinic in the past but not recently - recommend follow up at time of discharge. See progress notes for details. Sacrum 08/21/23 08/28/23 Sacrum Today 09/04/23 Sacrum Etiology: Unstageable Pressure Injury - Present on Admission Measurements: 0.8cm x 0.8cm x 0.4cm Wound Bed: adherent moist yellow white slough Drainage / Odor: Scant cole yellow drainage - no odor noted Edges: ? Macerated and defined Silvia wound: ? Macerated -moist with blanchable erythema and hyperpigmentation No Induration, No Fluctuance, No Warmth Pain: Pain reported Goals of Treatment: ? Moist wound healing and autolytic debridement with Alginate AG Left Forearm Etiology: Resurfaced - Intact tissue - Hydrocolloid removed no dressing needed at this time. 08/21/23 08/28/23 Right AC / Arm site Etiology: Nonhealing wound - Improving Measurements: 1cm x 0.3cm x 0.1cm with intact skin bridge noted - continues significant decrease in size noted - see photos above Wound Bed: Red clean moist tissue Drainage / Odor: scabbed dried drainage on wound edge Edges: Hypopigmentation andscarring noted Silvia wound: Intact ? No Induration, No Fluctuance, No Erythema, No Warmth Pain: Pain reported Goals of Treatment: ? Moist wound healing and autolytic debridement with Durafiber AG and foam dressing Recommendations: 1. Turn and Reposition every 2 hours and as needed for patient comfort. 2. Off Load all bony prominences with use of pillows. 3. Monitor for incontinence and moisture control - Purewick in use at this time. 4. Provide adequate and supplemental nutrition. 5. Continue low air loss mattress. 6.Coccyx - Off Load Pressure - Cleanse with normal saline and pat dry. ?Apply Triad to silvia-wound, lightly pack coccyx with Durafiber AG cover with sacral foam dressing. ?Change Daily or as needed for soiling. 7. Right Arm AC - Cleanse with normal saline and pat dry. ?Apply skin prep to silvia-wound, lightly pack with Durafiber AG cover with foam dressing. ?Change every other day. Re-consult wound care Nurse for wound deterioration or wound changes.
[2023-09-04] MEDS: DAPTOmycin 500 MG in 0.9 % Sodium Chloride 50 ML 120 MG IV (16:09)
[2023-09-04] MEDS: HYDROmorphone HCl 2 MG TABLET 1 MG PO ×2 (16:10→22:06)
[2023-09-04] MEDS: Melatonin 3 MG TABLET 6 MG PO (22:06)
[2023-09-04] MEDS: Montelukast Sodium 10 MG TABLET PO (22:06)
[2023-09-04] MEDS: Acetaminophen 325 MG TABLET 650 MG PO (22:07)
[2023-09-04] MEDS: guaiFENesin 200 MG/10 ML 10 ML LIQUID PO (22:07)
[2023-09-05] VITALS (10 sets, daily range): BP systolic 116–170; BP diastolic 56–86; PULSE 79–93; RESP 18–20; TEMP 36.2–36.4; O2SAT 94–98
[2023-09-05] MEDS: guaiFENesin 200 MG/10 ML 10 ML LIQUID PO (05:17)
[2023-09-05] MEDS: HYDROmorphone HCl 2 MG TABLET 1 MG PO ×4 (05:17→20:49)
[2023-09-05] MEDS: Enoxaparin Sodium 60 MG/0.6 ML SYRINGE SUBCUT ×2 (05:17→17:04)
[2023-09-05] MEDS: Albuterol/Iprat 2.5/0.5MG 3 ML AMPUL.NEB INHALE ×3 (07:47→19:40)
[2023-09-05] MEDS: Tiotropium Bromide 2.5 mcg 1 PUFF/2.5 MCG MIST.INHAL 2 PUFF INHALE (07:47)
[2023-09-05] MEDS: Fluticasone Propionate 250 MCG BLST.W.DEV 1 PUFF INHALE ×2 (07:48→19:40)
--- NOTE | 2023-09-05 08:38 | MHC.CM.PN ---
EMR REVIEWED, PT REMAINS MEDICALLY CLEARED FOR DC, CM RECEIV[facility] THAT THEY HAVE [facility] FEMALE BEDS, SNF REFERRAL EXPANDED AND CM AWAITING RESPONSE FROM TEVIN EPPERSON, CM WILL CONT TO FOLLOW FOR PLACEMENT.
[2023-09-05] MEDS: Omeprazole 20 MG CAPSULE.DR PO ×2 (09:53→20:51)
[2023-09-05] MEDS: Ferrous Sulfate 324 MG TABLET.DR PO ×2 (09:53→20:51)
[2023-09-05] MEDS: Cholecalciferol (Vitamin D3) 25 MCG TABLET PO (09:54)
[2023-09-05] MEDS: 0.9 % Sodium Chloride Flush 3 ML SYRINGE IVFLUSH ×3 (09:54→20:51)
--- NOTE | 2023-09-05 11:29 | P.PNIM_ITS ---
Subjective Subjective Date of Service: 09/05/23 Interval History: Seen and evaluated alert and interactive Cultures negative > 48hours Left leg swelling and pain improving reporting cough and remains on 2L Review of Systems Review of Systems: Yes all other systems are reviewed and are negative Physical Exam 2 Vital Signs: Vital Signs: Last Vital Signs Temp 97.4 F 09/05/23 07:24 Pulse 86 09/05/23 07:49 Resp 18 09/05/23 07:49 BP 133/60 09/05/23 07:24 Pulse Ox 94 09/05/23 07:24 O2 Del Method Nasal Cannula 09/05/23 07:24 O2 Flow Rate 2 09/05/23 07:24 BMI result Body Mass Index 21.9 Const: Other: Constitutional : alert, not in distress Neck : Normal inspection, Supple Cardiovascular : RRR, no JVP, Left lower extremity less edema with no more warmth or tenderness Respiratory : good bilateral air entry, no crackles,expiratory wheezes bilaterally Gastrointestinal: soft, lax, Normal bowel sounds, Non tender Skin : Warm, Dry, stage 1 sacral wound Neurological :alert, oriented , No focal deficit Objective Data Active Medications Acetaminophen (Acetaminophen 325 Mg Tablet) 650 mg PO Q6H PRN PRN Reason: Pain, Mild (Pain Scale 1-3) Last Admin: 09/04/23 22:07 Dose: 650 mg Documented By: BORA Albuterol Sulfate (Albuterol Sulfate 90 Mcg 8 Gm Inhaler) 2 puff INHALE Q4H PRN PRN Reason: Shortness Of Breath Or Wheezing Albuterol/Ipratropium (Albuterol/Iprat 2.5/0.5mg 3 Ml Ampul.Neb) 3 ml INHALE RQ4H WHILE AWAKE [facility] Last Admin: 09/05/23 11:22 Dose: Not Given Documented By: MARCIE Non-Admin Reason: Patient Refused Enoxaparin Sodium (Enoxaparin Sodium 60 Mg/0.6 Ml Syringe) 60 mg 1 mg/kg (60 mg) SUBCUT Q12H [facility] Last Admin: 09/05/23 05:17 Dose: 60 mg Documented By: BORA Ferrous Sulfate (Ferrous Sulfate 324 Mg Tablet.) 324 mg PO BID [facility] Last Admin: 09/05/23 09:53 Dose: 324 mg Documented By: BEHZAD Fluticasone Propionate (Fluticasone Propionate 250 Mcg Blst.W.Dev) 1 puff INHALE RBID [facility] Last Admin: 09/05/23 07:48 Dose: 1 puff Documented By: MARCIE Guaifenesin (Guaifenesin 200 Mg/10 Ml 10 Ml Liquid) 10 ml PO Q6H PRN PRN Reason: Cough Last Admin: 09/05/23 05:17 Dose: 10 ml Documented By: BORA Hydromorphone HCl (Hydromorphone Hcl 2 Mg Tablet) 1 mg PO Q3H PRN PRN Reason: mod pain Last Admin: 09/05/23 09:53 Dose: 1 mg Documented By: BEHZAD Daptomycin 500 mg/ Sodium (Chloride) 60 mls @ 120 mls/hr IV Q24H [facility] Last Infusion: 09/04/23 16:46 Dose: Infused Documented By: BEHZAD Lidocaine (Lidocaine 4 % Patch Adh..Patch) 1 patch TRANSDERMA DAILY [facility]; Protocol Last Admin: 09/05/23 09:54 Dose: Not Given Documented By: BEHZAD Non-Admin Reason: Patient Refused Melatonin (Melatonin 3 Mg Tablet) 6 mg PO BEDTIME PRN PRN Reason: Insomnia Last Admin: 09/04/23 22:06 Dose: 6 mg Documented By: BORA Montelukast Sodium (Montelukast Sodium 10 Mg Tablet) 10 mg PO BEDTIME [facility] Last Admin: 09/04/23 22:06 Dose: 10 mg Documented By: BORA Omeprazole (Omeprazole 20 Mg Capsule.Dr) 20 mg PO BID [facility] Last Admin: 09/05/23 09:53 Dose: 20 mg Documented By: BEHZAD Ondansetron HCl (Ondansetron Hcl 4 Mg/2 Ml Vial) 4 mg IVPUSH Q8H PRN PRN Reason: Nausea and Vomiting Last Admin: 08/30/23 17:57 Dose: 4 mg Documented By: RIN Sodium Chloride (0.9 % Sodium Chloride Flush 3 Ml Syringe) 3 ml IVFLUSH QSHIFT [facility] Last Admin: 09/05/23 09:54 Dose: 3 ml Documented By: BEHZAD Tiotropium [place] (Tiotropium [place] 2.5 Mcg 1 Puff/2.5 Mcg Mist.Inhal) 2 puff INHALE RDAILY [facility] Last Admin: 09/05/23 07:47 Dose: 2 puff Documented By: MARCIE Vitamin D (Cholecalciferol (Vitamin D3) 25 Mcg Tablet) 25 mcg PO DAILY [facility] Last Admin: 09/05/23 09:54 Dose: 25 mcg Documented By: BEHZAD Labs 09/01/23 06:46 09/03/23 08:31 Labs: Laboratory Results - last 24 hr 08/29/23 17:20 Abnorm Protein Band 1 TNP Abnorm Protein Band 2 TNP Abnorm Protein Band 3 TNP Assessment and Plan (1) Pneumonia: Status: Acute (2) Acute on chronic anemia: Status: Acute (3) DVT (deep venous thrombosis): Status: Acute (4) Bacteremia: Status: Acute Plan 73yo F with COPD, HCV, hx IDU, hx MRSA abscesses, hx Cdiff, hx E coli colitis, hx osteomyelitis of humerus/clavicle/scapula with MSSA bacteremia and treated at [facility] [place], chronic anemia recently admitted here 08/03/23 for anemia .left AMA 08/14/23 despite fever concerning for infection. found to have MRSA bacteremia and called back to hospital and also found to have bilateral occlusive DVTs persistently bacteremic. MRSA bacteremia dapto 08/17- [changed due to difficult phlebotomy- couldn't monitor troughs] TTE 08/16: The tricuspid valve was not well visualized. 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 Vasc Surg consult, not a candidate for endovascular intervention given uncontrolled infection not candidate for IVC filter given bacteremia, no gross or unstable bleed, will continue AC and transfuse as needed acute on chronic anemia Stable transfused total of 3 pRBCs, H+H responded appropriately continue ppi Patient refused doing EGD and Colonoscopy this hospital stay transfuse as needed, no gross bleeding Follow H&H hypoNa, mild hypoMg repleted Multiple wounds Wound Care consulted last admission: Coccyx wound, unstageable > cleanse with normal saline, apply triad to periwound, lightly pack coccyx with Durafiber Ag cover with sacral foam dressing, daily Right arm AC, abrasion > cleanse with normal saline, apply skin prep to periwound, lightly packed with Durafiber Ag, cover with foam dressing, daily Left forearm> cleanse with normal saline, or cover scabbed area with hydrocolloid dressing, change every 3 days In addition, frequent turning/repositioning every 2 hours to offload bony prominences along with air loss mattress. COPD continue Flovent + Spiriva, prn albuterol GERD continue PPI Hx opioid abuse met Recovery Team, denies use since 2000, attributes recent +Utox to pain meds received in hospital HCV Ab+, viral load negative HBV immune from prior infection HIV negative VTE ppx LMWH dispo will need STR eventually for IV ABX reason for continued hospitalization: On IV antibiotics for tretment of MRSA bacteremia pending safe discharge plan Quality Stroke Does the patient have a stroke diagnosis?: No VTE Prior VTE?: No VTE Risk Level:: Medical - moderate - high VTE Device Contraindication: Treatment Not Indicated VTE Drug Contraindication: N/A - Med Ordered
--- NOTE | 2023-09-05 11:39 | MHC.CLN ---
F/U PO INTAKE REAMINS VARIABLE RANGING FROM 0-100% DIET RX: REGULAR-APPROPRIATE PT RECEIVING ENSURE MAX BID TO PROMOTE WOUND HEALING SUPP PROVIDES 300KCALS, 60G PROTEIN WITH 100% ACCEPTANCE PT REPORTS DRINKING IT SOMETIMES DISLIKES CHOCOLATE FLAVOR-KITCHEN NOTIFIED PT RECEPTIVE TO TRIAL OF GELATEIN SUPPLEMENT WITH [employer] WILL ADD GELATEIN BID TO PROMOTE WOUND HEALING CONTINUE TO MONITOR PO INTAKE AND ENCOURAGE SUPPLEMENT
[2023-09-05] MEDS: guaiFENesin LA 600 MG TAB.ER.12H 1200 MG PO ×2 (13:31→20:50)
[2023-09-05] MEDS: DAPTOmycin 500 MG in 0.9 % Sodium Chloride 50 ML 120 MG IV (15:45)
[2023-09-05] MEDS: Acetylcysteine 10 % 400 MG/4 ML VIAL INHALE (19:41)
[2023-09-05] MEDS: Melatonin 3 MG TABLET 6 MG PO (20:50)
[2023-09-05] MEDS: Acetaminophen 325 MG TABLET 650 MG PO (20:50)
[2023-09-05] MEDS: Montelukast Sodium 10 MG TABLET PO (20:51)
[2023-09-06] VITALS (7 sets, daily range): BP systolic 122–144; BP diastolic 63–74; PULSE 79–107; RESP 16–20; TEMP 36.2–36.9; O2SAT 94–99
[2023-09-06] MEDS: HYDROmorphone HCl 2 MG TABLET 1 MG PO ×4 (04:06→14:49)
[2023-09-06] MEDS: Enoxaparin Sodium 60 MG/0.6 ML SYRINGE SUBCUT (05:19)
[2023-09-06] MEDS: guaiFENesin LA 600 MG TAB.ER.12H 1200 MG PO (07:58)
[2023-09-06] MEDS: Acetylcysteine 10 % 400 MG/4 ML VIAL INHALE ×2 (07:58→21:07)
[2023-09-06] MEDS: Ferrous Sulfate 324 MG TABLET.DR PO ×2 (07:59→20:06)
[2023-09-06] MEDS: Cholecalciferol (Vitamin D3) 25 MCG TABLET PO (07:59)
[2023-09-06] MEDS: Omeprazole 20 MG CAPSULE.DR PO ×2 (07:59→20:06)
[2023-09-06] MEDS: Albuterol/Iprat 2.5/0.5MG 3 ML AMPUL.NEB INHALE ×2 (08:02→21:07)
[2023-09-06] MEDS: Lidocaine 4 % Patch ADH..PATCH 1 PATCH TRANSDERMA (08:02)
[2023-09-06] MEDS: Tiotropium Bromide 2.5 mcg 1 PUFF/2.5 MCG MIST.INHAL 2 PUFF INHALE (08:04)
[2023-09-06] MEDS: Fluticasone Propionate 250 MCG BLST.W.DEV 1 PUFF INHALE ×2 (08:04→21:08)
--- NOTE | 2023-09-06 10:09 | HO.PM.IMPN ---
Subjective Subjective Date of Service: 09/06/23 Interval History: cough Physical Exam Vital Signs: Vital Signs: Last Vital Signs Temp 97.1 F 09/06/23 07:19 Pulse 85 09/06/23 08:06 Resp 16 09/06/23 08:06 BP 143/63 H 09/06/23 07:19 Pulse Ox 99 09/06/23 07:19 O2 Del Method Nasal Cannula 09/06/23 07:19 O2 Flow Rate 1 09/06/23 07:19 BMI result Body Mass Index 21.9 Const: Other: Constitutional : alert, not in distress Neck : Normal inspection, Supple Cardiovascular : RRR, no JVP, Left lower extremity less edema with no more warmth or tenderness Respiratory : good bilateral air entry, no crackles,expiratory wheezes bilaterally Gastrointestinal: soft, lax, Normal bowel sounds, Non tender Skin : Warm, Dry, stage 1 sacral wound Neurological :alert, oriented , No focal deficit Objective Data Active Medications Acetaminophen (Acetaminophen 325 Mg Tablet) 650 mg PO Q6H PRN PRN Reason: Pain, Mild (Pain Scale 1-3) Last Admin: 09/05/23 20:50 Dose: 650 mg Documented By: BORA Acetylcysteine (Acetylcysteine 10 % 400 Mg/4 Ml Vial) 400 mg INHALE RBID [facility] Last Admin: 09/06/23 07:58 Dose: 400 mg Documented By: LETICIA Albuterol Sulfate (Albuterol Sulfate 90 Mcg 8 Gm Inhaler) 2 puff INHALE Q4H PRN PRN Reason: Shortness Of Breath Or Wheezing Albuterol/Ipratropium (Albuterol/Iprat 2.5/0.5mg 3 Ml Ampul.Neb) 3 ml INHALE RQ4H WHILE AWAKE [facility] Last Admin: 09/06/23 08:02 Dose: 3 ml Documented By: WILFRID Apixaban (Apixaban 5 Mg Tablet) 5 mg PO BID [facility] Ferrous Sulfate (Ferrous Sulfate 324 Mg Tablet.) 324 mg PO BID [facility] Last Admin: 09/06/23 07:59 Dose: 324 mg Documented By: LETICIA Fluticasone Propionate (Fluticasone Propionate 250 Mcg Blst.W.Dev) 1 puff INHALE RBID [facility] Last Admin: 09/06/23 08:04 Dose: 1 puff Documented By: WILFRID Guaifenesin (Guaifenesin 200 Mg/10 Ml 10 Ml Liquid) 10 ml PO Q6H PRN PRN Reason: Cough Last Admin: 09/05/23 05:17 Dose: 10 ml Documented By: BORA Guaifenesin (Guaifenesin La 600 Mg Tab.Er.12h) 1,200 mg PO BID [facility] Last Admin: 09/06/23 07:58 Dose: 1,200 mg Documented By: LETICIA Hydromorphone HCl (Hydromorphone Hcl 2 Mg Tablet) 1 mg PO Q3H PRN PRN Reason: mod pain Last Admin: 09/06/23 07:59 Dose: 1 mg Documented By: LETICIA Daptomycin 500 mg/ Sodium (Chloride) 60 mls @ 120 mls/hr IV Q24H [facility] Last Infusion: 09/05/23 16:45 Dose: Infused Documented By: BEHZAD Lidocaine (Lidocaine 4 % Patch Adh..Patch) 1 patch TRANSDERMA DAILY [facility]; Protocol Last Admin: 09/06/23 08:02 Dose: 1 patch Documented By: LETICIA Melatonin (Melatonin 3 Mg Tablet) 6 mg PO BEDTIME PRN PRN Reason: Insomnia Last Admin: 09/05/23 20:50 Dose: 6 mg Documented By: BORA Montelukast Sodium (Montelukast Sodium 10 Mg Tablet) 10 mg PO BEDTIME [facility] Last Admin: 09/05/23 20:51 Dose: 10 mg Documented By: BORA Omeprazole (Omeprazole 20 Mg Capsule.) 20 mg PO BID [facility] Last Admin: 09/06/23 07:59 Dose: 20 mg Documented By: LETICIA Ondansetron HCl (Ondansetron Hcl 4 Mg/2 Ml Vial) 4 mg IVPUSH Q8H PRN PRN Reason: Nausea and Vomiting Last Admin: 08/30/23 17:57 Dose: 4 mg Documented By: RIN Sodium Chloride (0.9 % Sodium Chloride Flush 3 Ml Syringe) 3 ml IVFLUSH QSHIFT [facility] Last Admin: 09/06/23 09:21 Dose: Not Given Documented By: LETICIA Non-Admin Reason: Previously Administered Tiotropium [place] (Tiotropium [place] 2.5 Mcg 1 Puff/2.5 Mcg Mist.Inhal) 2 puff INHALE RDAILY [facility] Last Admin: 09/06/23 08:04 Dose: 2 puff Documented By: WILFRID Vitamin D (Cholecalciferol (Vitamin D3) 25 Mcg Tablet) 25 mcg PO DAILY [facility] Last Admin: 09/06/23 07:59 Dose: 25 mcg Documented By: LETICIA Labs 09/01/23 06:46 09/03/23 08:31 Assessment and Plan (1) Pneumonia: Status: Acute (2) Acute on chronic anemia: Status: Acute (3) DVT (deep venous thrombosis): Status: Acute (4) Bacteremia: Status: Acute Plan 73yo F with COPD, HCV, hx IDU, hx MRSA abscesses, hx Cdiff, hx E coli colitis, hx osteomyelitis of humerus/clavicle/scapula with MSSA bacteremia and treated at [facility], chronic anemia recently admitted here 08/03/23 for anemia .left AMA 08/14/23 despite fever concerning for infection. found to have MRSA bacteremia and called back to hospital and also found to have bilateral occlusive DVTs persistently bacteremic. MRSA bacteremia dapto 08/17- [changed due to difficult phlebotomy- couldn't monitor troughs] TTE 08/16: The tricuspid valve was not well visualized. 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 CXR showing worsening atekactasis in RML, less likely mass On Daptomycin as Abx Incentive spirometry for now Chest Physiotherapy and Mucomist neb Pulm consult occlusive BLE DVTs Imporivng change back to eliquis Vasc Surg consult, not a candidate for endovascular intervention given uncontrolled infection not candidate for IVC filter given bacteremia, no gross or unstable bleed, will continue AC and transfuse as needed acute on chronic anemia Stable transfused total of 3 pRBCs, H+H responded appropriately continue ppi Patient refused doing EGD and Colonoscopy this hospital stay transfuse as needed, no gross bleeding Follow H&H hypoNa, mild hypoMg repleted Multiple wounds Wound Care consulted last admission: Coccyx wound, unstageable > cleanse with normal saline, apply triad to periwound, lightly pack coccyx with Durafiber Ag cover with sacral foam dressing, daily Right arm AC, abrasion > cleanse with normal saline, apply skin prep to periwound, lightly packed with Durafiber Ag, cover with foam dressing, daily Left forearm> cleanse with normal saline, or cover scabbed area with hydrocolloid dressing, change every 3 days In addition, frequent turning/repositioning every 2 hours to offload bony prominences along with air loss mattress. COPD continue Flovent + Spiriva, prn albuterol GERD continue PPI Hx opioid abuse met Recovery Team, denies use since 2000, attributes recent +Utox to pain meds received in hospital HCV Ab+, viral load negative HBV immune from prior infection HIV negative VTE ppx LMWH dispo will need STR eventually for IV ABX reason for continued hospitalization: On IV antibiotics for tretment of MRSA bacteremia pending safe discharge plan Quality Stroke Does the patient have a stroke diagnosis?: No VTE Prior VTE?: No VTE Risk Level:: Medical - moderate - high VTE Device Contraindication: Treatment Not Indicated VTE Drug Contraindication: N/A - Med Ordered
--- NOTE | 2023-09-06 12:38 | P.CONPL_ITS ---
History of Present Illness History of Present Illness Consult date: 09/06/23 Chief complaint: staph bacteremia Narrative: This is an inpatient pulmonary consultation. The patient is a 73-year-old woman with a past medical history of COPD, hepatitis C, IV drug use, history of?MRSA abscesses,?history of c dif, history E. coli colitis, osteomyelitis of the humerus, clavicle, and scapula with MSSA bacteremia in [facility] of 2022 and was treated with skilled nursing Abx?at [facility]. She has chronic anemia; baseline hematocrit?from reviewing records at [facility] is 26, which is essentially unchanged. Pt?reportedly had lab work done today and was told by PCP to come to the ED. Her blood count here shows hemoglobin of 8 and hematocrit of 26. She was prescribed eliquis 2.5 bid by her PCP today but states that she has not yet taken it, the indication is not clear. The patient has been here for a prolonged period of time. During her stay she did have a chest x-ray and a CT scan. Appear to have a opacity in the right middle lobe area. The patient had a repeat chest x-ray with persistent findings. This is like a local infection. The patient has been treated with antibiotics. The patient is to follow-up as an outpatient will have a repeat imaging study to make sure this is clear and if it is not clear with an x-ray then will repeat a CT scan to make sure that we can be further addressed. Clinically patient is feeling better and her bacteremia is improved some hopeful that this also would improve. Review of Systems 2 Constitutional: Constitutional: Reports lethargy and Reports weakness Cardiovascular: Cardiovascular: Reports no additional cardiovascular complaints Gastrointestinal: Gastrointestinal: Reports no additional gastrointestinal complaints Neurologic: Reports weakness PMFSH Past Medical History Medical History Left against medical advice Bacteremia Chronic anemia MRSA cellulitis Asthma Legally blind Social History Social History Household Members: Friend(s) Housing: Homeless Do you presently have visiting nurse or other home services: Yes Unable to assess alcohol history related to: Unknown Alcohol intake: former Patient Tobacco Use Status: Never used Tobacco Smoked in Last 30 Days: No e-Cigarette/Vaping Use: Former Use Second Hand Smoke Exposure: No Use of substances other than those prescribed or required for medical reasons: Yes Substance Use Type: Former Substance User Substance Use Type Other:: Heroin 2001 Currently Displaying Signs/Symptoms of Drug Intoxication Withdrawal: No Other Past Substance Use Problem:: history of use Any prior treatment program specific to substance use: No Have you been hit, kicked, punched, or otherwise hurt by someone within the past year? If so, by whom?: No Do you feel safe in your current relationship?: No Current Relationship Is there a partner from a previous relationship who is making you feel unsafe now?: No Are you made to feel afraid or neglected: No Are you DNR?: No Advance Directives: No Advance Directives on File: No Do you have thoughts of harming others: None Do you have a plan to hurt others: No Plan Recently lost weight without trying: No Eating poorly because of decreased appetite: No Nutrition Risks: No Nutritional Risk Patient : No : No Poor oral hygiene: No service: No Meds Allergies Allergy/AdvReac Type Severity Reaction Status Date / Time cephalexin [From Keflex] Allergy Severe HIVES Verified 08/15/23 19:19 clindamycin [Clindamycin] Allergy Severe HIVES Verified 08/15/23 19:19 doxycycline [Doxycycline] Allergy Severe HIVES Verified 08/15/23 19:19 erythromycin base Allergy Severe HIVES Verified 08/15/23 19:20 [Erythromycin Base] levofloxacin [From Levaquin] Allergy Severe THROAT Verified 08/15/23 19:19 TIGHTENS nitrofurantoin Allergy Severe HIVES Verified 08/15/23 19:19 [From Macrobid] Penicillins Allergy Severe HIVES Verified 08/15/23 19:19 aspirin Allergy Unknown Hives Verified 08/15/23 19:19 linezolid [From ZYVOX] Allergy Unknown UNKNOWN Verified 08/15/23 19:19 Sulfa (Sulfonamide Allergy Unknown HIVES Verified 08/15/23 19:19 Antibiotics) [SULFA (SULFONAMIDE ANTIBIOTICS)] sulfacetamide Allergy Unknown Hives Verified 08/15/23 19:19 Erythromycin Allergy Unknown Hives Uncoded 04/22/23 06:01 seafood/shellfish Allergy Unknown Facial Uncoded 04/22/23 06:01 Swelling Sulfacet-R Allergy Unknown Hives Uncoded 04/22/23 06:01 Active Medications: Current Medications Acetaminophen (Acetaminophen 325 Mg Tablet) 650 mg PO Q6H PRN PRN Reason: Pain, Mild (Pain Scale 1-3) Last Admin: 09/05/23 20:50 Dose: 650 mg Acetylcysteine (Acetylcysteine 10 % 400 Mg/4 Ml Vial) 400 mg INHALE RBID [facility] Last Admin: 09/06/23 07:58 Dose: 400 mg Albuterol Sulfate (Albuterol Sulfate 90 Mcg 8 Gm Inhaler) 2 puff INHALE Q4H PRN PRN Reason: Shortness Of Breath Or Wheezing Albuterol/Ipratropium (Albuterol/Iprat 2.5/0.5mg 3 Ml Ampul.Neb) 3 ml INHALE RQ4H WHILE AWAKE [facility] Last Admin: 09/06/23 12:10 Dose: Not Given Apixaban (Apixaban 5 Mg Tablet) 5 mg PO BID [facility] Ferrous Sulfate (Ferrous Sulfate 324 Mg Tablet.Dr) 324 mg PO BID [facility] Last Admin: 09/06/23 07:59 Dose: 324 mg Fluticasone Propionate (Fluticasone Propionate 250 Mcg Blst.W.Dev) 1 puff INHALE RBID [facility] Last Admin: 09/06/23 08:04 Dose: 1 puff Guaifenesin (Guaifenesin 200 Mg/10 Ml 10 Ml Liquid) 10 ml PO Q6H PRN PRN Reason: Cough Last Admin: 09/05/23 05:17 Dose: 10 ml Guaifenesin (Guaifenesin La 600 Mg Tab.Er.12h) 1,200 mg PO BID [facility] Last Admin: 09/06/23 07:58 Dose: 1,200 mg Hydromorphone HCl (Hydromorphone Hcl 2 Mg Tablet) 1 mg PO Q3H PRN PRN Reason: mod pain Last Admin: 09/06/23 11:27 Dose: 1 mg Daptomycin 500 mg/ Sodium (Chloride) 60 mls @ 120 mls/hr IV Q24H [facility] Last Infusion: 09/05/23 16:45 Dose: Infused Lidocaine (Lidocaine 4 % Patch Adh..Patch) 1 patch TRANSDERMA DAILY [facility]; Protocol Last Admin: 09/06/23 08:02 Dose: 1 patch Melatonin (Melatonin 3 Mg Tablet) 6 mg PO BEDTIME PRN PRN Reason: Insomnia Last Admin: 09/05/23 20:50 Dose: 6 mg Montelukast Sodium (Montelukast Sodium 10 Mg Tablet) 10 mg PO BEDTIME [facility] Last Admin: 09/05/23 20:51 Dose: 10 mg Omeprazole (Omeprazole 20 Mg Capsule.Dr) 20 mg PO BID [facility] Last Admin: 09/06/23 07:59 Dose: 20 mg Ondansetron HCl (Ondansetron Hcl 4 Mg/2 Ml Vial) 4 mg IVPUSH Q8H PRN PRN Reason: Nausea and Vomiting Last Admin: 08/30/23 17:57 Dose: 4 mg Sodium Chloride (0.9 % Sodium Chloride Flush 3 Ml Syringe) 3 ml IVFLUSH QSHIFT [facility] Last Admin: 09/06/23 09:21 Dose: Not Given Tiotropium [place] (Tiotropium [place] 2.5 Mcg 1 Puff/2.5 Mcg Mist.Inhal) 2 puff INHALE RDAILY [facility] Last Admin: 09/06/23 08:04 Dose: 2 puff Vitamin D (Cholecalciferol (Vitamin D3) 25 Mcg Tablet) 25 mcg PO DAILY [facility] Last Admin: 09/06/23 07:59 Dose: 25 mcg Home Medications Medication Instructions Recorded Confirmed Last Taken Type albuterol sulfate 2.5 mg/3 mL 2.5 mg inhalation Q4H PRN 08/03/23 08/15/23 Unknown History (0.083 %) solution for nebulization Shortness Of Breath Or Wheezing albuterol sulfate 90 mcg/actuation 2 puff inhalation Q4-6H PRN 08/03/23 08/15/23 Unknown History aerosol inhaler Shortness Of Breath Or Wheezing cholecalciferol (vitamin D3) 25 25 mcg PO DAILY 08/03/23 08/15/23 Unknown History mcg (1,000 unit) tablet clonazepam 1 mg tablet 1 mg PO BEDTIME PRN Anxiety 08/03/23 08/15/23 Unknown History ferrous sulfate 325 mg (65 mg 325 mg PO BID 08/03/23 08/15/23 Unknown History iron) tablet,delayed release fluticasone propionate 220 1 puff inhalation BID 08/03/23 08/15/23 Unknown History mcg/actuation HFA aerosol inhaler (Flovent HFA) montelukast 10 mg tablet 10 mg PO DAILY 08/03/23 08/15/23 Unknown History omeprazole 20 mg capsule,delayed 20 mg PO BID 08/03/23 08/15/23 Unknown History release tiotropium bromide 18 mcg capsule 1 cap inhalation DAILY 08/03/23 08/15/23 Unknown History with inhalation device (Spiriva with HandiHaler) zolpidem 5 mg tablet 5 mg PO BEDTIME PRN Insomnia 08/03/23 08/15/23 Unknown History Physical Exam 2 Vital Signs: Vital Signs: Last Vital Signs Temp 97.8 F 09/06/23 10:58 Pulse 100 09/06/23 10:58 Resp 18 09/06/23 10:58 BP 122/74 09/06/23 10:58 Pulse Ox 94 09/06/23 10:58 O2 Del Method Nasal Cannula 09/06/23 10:58 O2 Flow Rate 1 09/06/23 10:58 BMI result Body Mass Index 21.9 Const: Other: Constitutional : alert, not in distress Neck : Normal inspection, Supple Cardiovascular : RRR, no JVP, Left lower extremity less edema with no more warmth or tenderness Respiratory : good bilateral air entry, no crackles,expiratory wheezes bilaterally Gastrointestinal: soft, lax, Normal bowel sounds, Non tender Skin : Warm, Dry, stage 1 sacral wound Neurological :alert, oriented , No focal deficit Results Laboratory Findings 09/01/23 06:46 09/03/23 08:31 Abnormal lab findings: Abnormal Labs 08/15/23 08/16/23 08/16/23 21:30 06:03 08:54 WBC RBC 2.41 L 2.02 L Hgb 7.2 L 6.1 L* Hct 22.6 L 19.2 L* MCV RDW 17.2 H 16.9 H Plt Count 152 L 124 L Immature Gran % (Auto) 0.7 H 0.7 H Neut % (Auto) 85.7 H Lymph % (Auto) 10.3 L Lymph # (Auto) 0.7 L Abs Immat Gran (auto) 0.05 H 0.06 H ESR ABG pO2 at Pt Temp Sodium 132 L Chloride Carbon Dioxide 19 L Anion Gap 10 L 11 L BUN 18 H Fasting Glucose Calcium 7.6 L D 7.1 L D Magnesium 1.2 L* Iron TIBC Alkaline Phosphatase Total Creatine Kinase C-Reactive Protein Total Protein 6.1 L Albumin 1.9 L Albumin (PEP) Nywuu-0-Byobbjjao Ciqk-4-Bwavkbia Gamma Globulins Urine Protein Urine Nitrite Ur Leukocyte Esterase Urine WBC Urine Opiates Screen Urine Fentanyl Screen IgG Total IgA Total Hepatitis C Ab (EIA) Crossmatch See Detail 08/16/23 08/17/23 08/18/23 09:53 12:40 06:30 WBC RBC 2.43 L D Hgb 7.3 L Hct 23.1 L D MCV RDW 16.9 H Plt Count 137 L Immature Gran % (Auto) Neut % (Auto) Lymph % (Auto) Lymph # (Auto) Abs Immat Gran (auto) ESR ABG pO2 at Pt Temp Sodium 130 L Chloride Carbon Dioxide 20 L Anion Gap 10 L BUN 20 H Fasting Glucose Calcium 7.9 L D Magnesium Iron TIBC Alkaline Phosphatase Total Creatine Kinase 18 L C-Reactive Protein 30.18 H Total Protein Albumin Albumin (PEP) Afybj-7-Dwlgslyeu Dfbn-1-Megfakhb Gamma Globulins Urine Protein 30 (1+) H Urine Nitrite Positive H Ur Leukocyte Esterase Large (3+) H Urine WBC 11-20 H Urine Opiates Screen POSITIVE H Urine Fentanyl Screen POSITIVE H IgG Total IgA Total Hepatitis C Ab (EIA) Crossmatch 08/18/23 08/19/23 08/22/23 08:32 05:54 06:08 WBC 13.3 H 15.3 H RBC 2.68 L 2.91 L 2.23 L D Hgb 8.1 L 8.8 L 7.0 L* D Hct 24.6 L 27.1 L 20.8 L* D MCV RDW 16.4 H 16.2 H Plt Count 130 L 150 L Immature Gran % (Auto) Neut % (Auto) Lymph % (Auto) Lymph # (Auto) Abs Immat Gran (auto) ESR 69 H ABG pO2 at Pt Temp Sodium 130 L 133 L Chloride 109 H Carbon Dioxide 20 L 18 L Anion Gap 11 L 10 L BUN 24 H Fasting Glucose Calcium 8.1 L 7.5 L D Magnesium Iron TIBC Alkaline Phosphatase Total Creatine Kinase C-Reactive Protein Total Protein Albumin Albumin (PEP) Yndco-8-Rgvlhbbst Vvzm-4-Zvtjfwoj Gamma Globulins Urine Protein Urine Nitrite Ur Leukocyte Esterase Urine WBC Urine Opiates Screen Urine Fentanyl Screen IgG Total IgA Total Hepatitis C Ab (EIA) Reactive H Crossmatch 08/22/23 08/23/23 08/25/23 13:11 06:41 05:23 WBC 17.7 H RBC 2.74 L D 2.28 L Hgb 8.4 L 7.1 L Hct 25.2 L D 21.5 L MCV RDW 16.3 H Plt Count Immature Gran % (Auto) Neut % (Auto) Lymph % (Auto) Lymph # (Auto) Abs Immat Gran (auto) ESR ABG pO2 at Pt Temp Sodium 133 L 133 L Chloride Carbon Dioxide 21 L Anion Gap 9 L 6 L BUN Fasting Glucose Calcium 7.7 L 7.5 L Magnesium Iron TIBC Alkaline Phosphatase Total Creatine Kinase C-Reactive Protein Total Protein Albumin Albumin (PEP) Fyhhf-7-Pcfonxrwx Crqh-5-Itxrglqu Gamma Globulins Urine Protein Urine Nitrite Ur Leukocyte Esterase Urine WBC Urine Opiates Screen Urine Fentanyl Screen IgG Total IgA Total Hepatitis C Ab (EIA) Crossmatch See Detail 08/27/23 08/27/23 08/28/23 06:00 09:17 05:40 WBC RBC 2.10 L 2.39 L Hgb 6.5 L* 7.6 L Hct 20.2 L* 23.3 L MCV RDW Plt Count Immature Gran % (Auto) Neut % (Auto) Lymph % (Auto) Lymph # (Auto) Abs Immat Gran (auto) ESR ABG pO2 at Pt Temp Sodium 131 L 132 L Chloride Carbon Dioxide Anion Gap 8 L 9 L BUN Fasting Glucose 129 H 113 H Calcium 7.5 L 7.6 L Magnesium Iron TIBC Alkaline Phosphatase Total Creatine Kinase C-Reactive Protein Total Protein Albumin Albumin (PEP) Hdnpp-1-Yofogrssi Pnad-8-Feqlslhz Gamma Globulins Urine Protein Urine Nitrite Ur Leukocyte Esterase Urine WBC Urine Opiates Screen Urine Fentanyl Screen IgG Total IgA Total Hepatitis C Ab (EIA) Crossmatch See Detail 08/29/23 08/29/23 08/30/23 05:25 17:20 06:18 WBC RBC 2.83 L Hgb 8.9 L Hct 26.9 L MCV RDW Plt Count Immature Gran % (Auto) Neut % (Auto) Lymph % (Auto) Lymph # (Auto) Abs Immat Gran (auto) ESR ABG pO2 at Pt Temp Sodium Chloride Carbon Dioxide Anion Gap 10 L BUN Fasting Glucose Calcium 7.8 L Magnesium Iron 26 L TIBC 88 L Alkaline Phosphatase 179 H Total Creatine Kinase C-Reactive Protein Total Protein 6.3 L Albumin 1.6 L Albumin (PEP) 1.6 L Fhyfu-1-Ouexirfcl 0.6 H Bedh-6-Vpnzezrw 0.3 L Gamma Globulins 2.4 H Urine Protein Urine Nitrite Ur Leukocyte Esterase Urine WBC Urine Opiates Screen Urine Fentanyl Screen IgG Total 2749 H IgA Total 394 H Hepatitis C Ab (EIA) Crossmatch 08/31/23 09/01/23 09/01/23 04:04 06:46 12:10 WBC RBC 2.69 L Hgb 8.4 L Hct 26.9 L MCV 100.0 H RDW Plt Count Immature Gran % (Auto) Neut % (Auto) Lymph % (Auto) Lymph # (Auto) Abs Immat Gran (auto) ESR ABG pO2 at Pt Temp 60 L Sodium 131 L Chloride Carbon Dioxide Anion Gap 11 L BUN Fasting Glucose Calcium Magnesium Iron TIBC Alkaline Phosphatase Total Creatine Kinase C-Reactive Protein Total Protein Albumin Albumin (PEP) Zeibz-6-Xlkwsfpul Ubkd-8-Pyhudbkf Gamma Globulins Urine Protein Urine Nitrite Ur Leukocyte Esterase Urine WBC Urine Opiates Screen Urine Fentanyl Screen IgG Total IgA Total Hepatitis C Ab (EIA) Crossmatch 09/03/23 08:31 WBC RBC Hgb Hct MCV RDW Plt Count Immature Gran % (Auto) Neut % (Auto) Lymph % (Auto) Lymph # (Auto) Abs Immat Gran (auto) ESR ABG pO2 at Pt Temp Sodium Chloride Carbon Dioxide Anion Gap BUN Fasting Glucose Calcium 8.3 L Magnesium Iron TIBC Alkaline Phosphatase Total Creatine Kinase C-Reactive Protein Total Protein Albumin Albumin (PEP) Wppwv-4-Tcgrecfzd Lshs-4-Pmhwjkai Gamma Globulins Urine Protein Urine Nitrite Ur Leukocyte Esterase Urine WBC Urine Opiates Screen Urine Fentanyl Screen IgG Total IgA Total Hepatitis C Ab (EIA) Crossmatch Microbiology: Microbiology 09/01/23 09:41 Blood - Venous Blood Culture - Final No growth after 5 days. 08/29/23 17:20 Blood - Venous Blood Culture - Final No growth after 5 days. 08/31/23 11:45 Catheter Tip - Subclavian Catheter Tip Culture - Final No growth after 3 days. 08/28/23 08:34 Blood - Central Line Blood Culture - Final No growth after 5 days. 08/28/23 08:34 Blood - Central Line Blood Culture - Final Methicillin Res Staph Aureus 08/29/23 14:47 Blood - Venous Blood Culture - Final 08/24/23 15:08 Blood - Venous Blood Culture - Final Methicillin Res Staph Aureus 08/24/23 15:08 Blood - Venous Blood Culture - Final Methicillin Res Staph Aureus 08/26/23 00:42 Blood - Venous Blood Culture - Final Methicillin Res Staph Aureus 08/26/23 00:42 Blood - Venous Blood Culture - Final Methicillin Res Staph Aureus 08/25/23 08:08 Blood - Central Line Blood Culture - Final Methicillin Res Staph Aureus 08/25/23 07:49 Blood - Central Line Blood Culture - Final Methicillin Res Staph Aureus 08/23/23 07:40 Blood - Central Line Blood Culture - Final Methicillin Res Staph Aureus 08/23/23 07:39 Blood - Central Line Blood Culture - Final Methicillin Res Staph Aureus 08/22/23 06:00 Blood - Venous Blood Culture - Final 08/22/23 06:00 Blood - Venous Blood Culture - Final 08/21/23 10:39 Blood - Venous Blood Culture - Final 08/21/23 10:39 Blood - Venous Blood Culture - Final 08/21/23 10:35 Blood - Venous Blood Culture - Final 08/21/23 10:35 Blood - Venous Blood Culture - Final 08/18/23 06:30 Blood - Venous Blood Culture - Final Methicillin Res Staph Aureus 08/18/23 06:30 Blood - Venous Blood Culture - Final Methicillin Res Staph Aureus 08/17/23 20:54 Urine clean catch - Clean Catch Midstream Urine Culture - Final 08/15/23 21:30 Blood - Venous Blood Culture - Final Methicillin Res Staph Aureus 08/15/23 21:30 Blood - Venous Blood Culture - Final Methicillin Res Staph Aureus Assessment and Plan (1) Pneumonia: Qualifiers: Pneumonia type: due to unspecified organism Laterality: right Lung location: middle lobe of lung Qualified Code(s): J18.9 - Pneumonia, unspecified organism Status: Acute (2) Bacteremia: Status: Acute Plan Clinically the patient is doing well on the current regimen. Recommend incentive spirometer 4 times a day Recommend flutter chest physical therapy twice a day She have a repeat chest x-ray in 4-6 weeks Follow-up with Pulmonary as an outpatient Procedures Date of Service Date of Service: 09/06/23
--- NOTE | 2023-09-06 14:44 | MHC.CM.PN ---
EMR reviewed and per MD rounds, pt is medically cleared for D/C pending STR placement. No bed offers at this time, but [facility] in [place] is reviewing. This CM called [facility] and they state they do not have a bed available, and to check next week. This CM called and [facility]. CM will continue STR bed search. This CM met with pt to discuss and she states her sister/HCP Aimee is trying to get her into an assisted living facility in [place]. Pt states she does not want to go to [place] for STR, she would like to stay closer to this area. This CM explained that there are no bed offers at this time. This CM spoke to pts sister Aimee, asked for a copy of the HCP, she stated she does not have one. Aimee would like her sister to remain close to this area for STR but said its ok if she has to go to [place]. Aimee confirmed that they are trying to get her into an [facility] in [place], but didn't know the name of facility. Obtained a copy of HCP from [facility], now on file. CM will continue to follow.
[2023-09-06] MEDS: DAPTOmycin 500 MG in 0.9 % Sodium Chloride 50 ML 120 MG IV (14:49)
[2023-09-06] MEDS: 0.9 % Sodium Chloride Flush 3 ML SYRINGE IVFLUSH ×2 (14:55→20:10)
[2023-09-06] MEDS: Acetaminophen 325 MG TABLET 650 MG PO (17:30)
[2023-09-06] MEDS: Montelukast Sodium 10 MG TABLET PO (20:06)
[2023-09-06] MEDS: guaiFENesin 200 MG/10 ML 10 ML LIQUID PO (20:06)
[2023-09-06] MEDS: Apixaban 5 MG TABLET PO (20:06)
[2023-09-07] VITALS (7 sets, daily range): BP systolic 119–154; BP diastolic 59–73; PULSE 78–85; RESP 17–20; TEMP 36.1–37; O2SAT 95–97
[2023-09-07] MEDS: HYDROmorphone HCl 2 MG TABLET 1 MG PO ×4 (05:47→20:26)
[2023-09-07] MEDS: Fluticasone Propionate 250 MCG BLST.W.DEV 1 PUFF INHALE ×2 (07:50→19:14)
[2023-09-07] MEDS: Albuterol/Iprat 2.5/0.5MG 3 ML AMPUL.NEB INHALE (07:50)
[2023-09-07] MEDS: Acetylcysteine 10 % 400 MG/4 ML VIAL INHALE ×2 (07:50→19:14)
[2023-09-07] MEDS: Tiotropium Bromide 2.5 mcg 1 PUFF/2.5 MCG MIST.INHAL 2 PUFF INHALE (07:51)
[2023-09-07] MEDS: 0.9 % Sodium Chloride Flush 3 ML SYRINGE IVFLUSH ×3 (08:51→20:26)
[2023-09-07] MEDS: Lidocaine 4 % Patch ADH..PATCH 1 PATCH TRANSDERMA (08:51)
[2023-09-07] MEDS: Omeprazole 20 MG CAPSULE.DR PO ×2 (08:52→20:26)
[2023-09-07] MEDS: Cholecalciferol (Vitamin D3) 25 MCG TABLET PO (08:52)
[2023-09-07] MEDS: Acetaminophen 325 MG TABLET 650 MG PO ×2 (08:52→20:25)
[2023-09-07] MEDS: Apixaban 5 MG TABLET PO ×2 (08:52→20:26)
[2023-09-07] MEDS: guaiFENesin LA 600 MG TAB.ER.12H 1200 MG PO ×2 (08:52→20:26)
[2023-09-07] MEDS: Ferrous Sulfate 324 MG TABLET.DR PO ×2 (08:54→20:26)
--- NOTE | 2023-09-07 10:16 | MHC.CM.PN ---
EMR REVIEWED, PT STILL AWAITING BED OFFER FOR STR, PER MULTIPLE SNF'S PT'S INSURANCE DOES NOT DO CARVE OUT FOR MEDS AND [place] IS VERY EXPENSIVE, PER HOSPITALIST PT DID NOT DO WEEL ON [facility] THEREFORE SHE WILL NEED TO STAY ON [place], CM WILL CONT TO FOLLOW FOR PLACEMENT AND DC NEEDS.
--- NOTE | 2023-09-07 11:03 | P.PNIM_ITS ---
Subjective Subjective Date of Service: 09/07/23 Interval History: cough Physical Exam 2 Vital Signs: Vital Signs: Last Vital Signs Temp 97.8 F 09/07/23 07:42 Pulse 82 09/07/23 08:02 Resp 20 09/07/23 08:02 BP 154/68 H 09/07/23 07:42 Pulse Ox 96 09/07/23 08:02 O2 Del Method Nasal Cannula 09/07/23 07:42 O2 Flow Rate 1 09/07/23 07:42 BMI result Body Mass Index 21.9 Const: Other: Constitutional : alert, not in distress Neck : Normal inspection, Supple Cardiovascular : RRR, no JVP, Left lower extremity less edema with no more warmth or tenderness Respiratory : good bilateral air entry, no crackles,expiratory wheezes bilaterally Gastrointestinal: soft, lax, Normal bowel sounds, Non tender Skin : Warm, Dry, stage 1 sacral wound Neurological :alert, oriented , No focal deficit Objective Data Active Medications Acetaminophen (Acetaminophen 325 Mg Tablet) 650 mg PO Q6H PRN PRN Reason: Pain, Mild (Pain Scale 1-3) Last Admin: 09/07/23 08:52 Dose: 650 mg Documented By: CECILIO Acetylcysteine (Acetylcysteine 10 % 400 Mg/4 Ml Vial) 400 mg INHALE ID [facility] Last Admin: 09/07/23 07:50 Dose: 400 mg Documented By: MARCIE Albuterol Sulfate (Albuterol Sulfate 90 Mcg 8 Gm Inhaler) 2 puff INHALE Q4H PRN PRN Reason: Shortness Of Breath Or Wheezing Apixaban (Apixaban 5 Mg Tablet) 5 mg PO BID [facility] Last Admin: 09/07/23 08:52 Dose: 5 mg Documented By: CECILIO Ferrous Sulfate (Ferrous Sulfate 324 Mg Tablet.) 324 mg PO BID [facility] Last Admin: 09/07/23 08:54 Dose: 324 mg Documented By: CECILIO Fluticasone Propionate (Fluticasone Propionate 250 Mcg Blst.W.Dev) 1 puff INHALE RBID [facility] Last Admin: 09/07/23 07:50 Dose: 1 puff Documented By: MARCIE Guaifenesin (Guaifenesin 200 Mg/10 Ml 10 Ml Liquid) 10 ml PO Q6H PRN PRN Reason: Cough Last Admin: 09/06/23 20:06 Dose: 10 ml Documented By: LUKE Guaifenesin (Guaifenesin La 600 Mg Tab.Er.12h) 1,200 mg PO BID [facility] Last Admin: 09/07/23 08:52 Dose: 1,200 mg Documented By: CECILIO Hydromorphone HCl (Hydromorphone Hcl 2 Mg Tablet) 1 mg PO Q3H PRN PRN Reason: mod pain Last Admin: 09/07/23 08:53 Dose: 1 mg Documented By: CECILIO Daptomycin 500 mg/ Sodium (Chloride) 60 mls @ 120 mls/hr IV Q24H [facility] Last Infusion: 09/06/23 15:31 Dose: Infused Documented By: LETICIA Lidocaine (Lidocaine 4 % Patch Adh..Patch) 1 patch TRANSDERMA DAILY [facility]; Protocol Last Admin: 09/07/23 08:51 Dose: 1 patch Documented By: CECILIO Melatonin (Melatonin 3 Mg Tablet) 6 mg PO BEDTIME PRN PRN Reason: Insomnia Last Admin: 09/05/23 20:50 Dose: 6 mg Documented By: BORA Montelukast Sodium (Montelukast Sodium 10 Mg Tablet) 10 mg PO BEDTIME [facility] Last Admin: 09/06/23 20:06 Dose: 10 mg Documented By: LUKE Omeprazole (Omeprazole 20 Mg Capsule.Dr) 20 mg PO BID [facility] Last Admin: 09/07/23 08:52 Dose: 20 mg Documented By: CECILIO Ondansetron HCl (Ondansetron Hcl 4 Mg/2 Ml Vial) 4 mg IVPUSH Q8H PRN PRN Reason: Nausea and Vomiting Last Admin: 08/30/23 17:57 Dose: 4 mg Documented By: RIN Sodium Chloride (0.9 % Sodium Chloride Flush 3 Ml Syringe) 3 ml IVFLUSH QSHIFT [facility] Last Admin: 09/07/23 08:51 Dose: 3 ml Documented By: CECILIO Tiotropium [place] (Tiotropium [place] 2.5 Mcg 1 Puff/2.5 Mcg Mist.Inhal) 2 puff INHALE RDAILY [facility] Last Admin: 09/07/23 07:51 Dose: 2 puff Documented By: MARCIE Vitamin D (Cholecalciferol (Vitamin D3) 25 Mcg Tablet) 25 mcg PO DAILY [facility] Last Admin: 09/07/23 08:52 Dose: 25 mcg Documented By: CECILIO Labs 09/01/23 06:46 09/03/23 08:31 Microbiology Microbiology Results: Microbiology 09/01/23 09:41 Blood Culture - Final Blood - Venous No growth after 5 days. Assessment and Plan (1) Pneumonia: Status: Acute (2) Acute on chronic anemia: Status: Acute (3) DVT (deep venous thrombosis): Status: Acute (4) Bacteremia: Status: Acute Plan 73yo F with COPD, HCV, hx IDU, hx MRSA abscesses, hx Cdiff, hx E coli colitis, hx osteomyelitis of humerus/clavicle/scapula with MSSA bacteremia and treated at [facility] [place], chronic anemia recently admitted here 08/03/23 for anemia .left AMA 08/14/23 despite fever concerning for infection. found to have MRSA bacteremia and called back to hospital and also found to have bilateral occlusive DVTs persistently bacteremic. MRSA bacteremia dapto 08/17- [changed due to difficult phlebotomy- couldn't monitor troughs] TTE 08/16: The tricuspid valve was not well visualized. 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 CXR showing worsening atekactasis in RML, less likely mass On Daptomycin as Abx Incentive spirometry for now Chest Physiotherapy and Mucomist neb repeat cxr in 4-6 weeks occlusive BLE DVTs Imporivng change back to eliquis Vasc Surg consult, not a candidate for endovascular intervention given uncontrolled infection not candidate for IVC filter given bacteremia, no gross or unstable bleed, will continue AC and transfuse as needed acute on chronic anemia Stable transfused total of 3 pRBCs, H+H responded appropriately continue ppi Patient refused doing EGD and Colonoscopy this hospital stay transfuse as needed, no gross bleeding Follow H&H hypoNa, mild hypoMg repleted Multiple wounds Wound Care consulted last admission: Coccyx wound, unstageable > cleanse with normal saline, apply triad to periwound, lightly pack coccyx with Durafiber Ag cover with sacral foam dressing, daily Right arm AC, abrasion > cleanse with normal saline, apply skin prep to periwound, lightly packed with Durafiber Ag, cover with foam dressing, daily Left forearm> cleanse with normal saline, or cover scabbed area with hydrocolloid dressing, change every 3 days In addition, frequent turning/repositioning every 2 hours to offload bony prominences along with air loss mattress. COPD continue Flovent + Spiriva, prn albuterol GERD continue PPI Hx opioid abuse met Recovery Team, denies use since 2000, attributes recent +Utox to pain meds received in hospital HCV Ab+, viral load negative HBV immune from prior infection HIV negative VTE ppx LMWH dispo will need STR eventually for IV ABX reason for continued hospitalization: On IV antibiotics for tretment of MRSA bacteremia pending safe discharge plan Quality Stroke Does the patient have a stroke diagnosis?: No VTE Prior VTE?: No VTE Risk Level:: Medical - moderate - high VTE Device Contraindication: Treatment Not Indicated VTE Drug Contraindication: N/A - Med Ordered
--- NOTE | 2023-09-07 11:44 | MHC.CLN ---
F/U PO INTAKE IMPROVED 75-100% X2 MEALS DIET RX: REGULAR-APPROPRIATE PT RECEIVING ENSURE MAX BID TO PROMOTE WOUND HEALING SUPP PROVIDES 300KCALS, 60G PROTEIN WITH 100% ACCEPTANCE PT RECEIVING TRIAL OF GELATEIN SUPPLEMENT WITH MEALS-ACCEPTING AT THIS TIME CONTINUE TO MONITOR PO INTAKE AND ENCOURAGE SUPPLEMENTS
[2023-09-07] MEDS: DAPTOmycin 500 MG in 0.9 % Sodium Chloride 50 ML 120 MG IV (15:54)
[2023-09-07] MEDS: Montelukast Sodium 10 MG TABLET PO (20:25)
[2023-09-07] MEDS: Melatonin 3 MG TABLET 6 MG PO (20:26)
[2023-09-08] VITALS (8 sets, daily range): BP systolic 113–138; BP diastolic 61–73; PULSE 80–95; RESP 18–20; TEMP 36.1–37; O2SAT 97–99
[2023-09-08] MEDS: HYDROmorphone HCl 2 MG TABLET 1 MG PO ×4 (03:50→20:59)
[2023-09-08 07:33] LABS: Hemoglobin 9.1 g/dl (12.0-16.0); Mean Corpuscular HGB Conc 31.4 g/dl (31.0-35.0); Mean Corpuscular Hemoglobin 31.1 pg (27.0-33.0); Mean Platelet Volume 9.3 fL (9.4-12.3); Platelet Count 292 X10*3/uL (160-400); Red Blood Count 2.93 X10*6/uL (4.20-5.50); Red Cell Distribution Width 15.5 % (11.0-16.0); White Blood Count 3.9 X10*3/uL (4.8-10.8)
[2023-09-08] MEDS: guaiFENesin LA 600 MG TAB.ER.12H 1200 MG PO ×2 (09:55→21:00)
[2023-09-08] MEDS: Cholecalciferol (Vitamin D3) 25 MCG TABLET PO (09:56)
[2023-09-08] MEDS: Lidocaine 4 % Patch ADH..PATCH 1 PATCH TRANSDERMA (09:56)
[2023-09-08] MEDS: 0.9 % Sodium Chloride Flush 3 ML SYRINGE IVFLUSH (09:56)
[2023-09-08] MEDS: Apixaban 5 MG TABLET PO ×2 (09:56→21:01)
[2023-09-08] MEDS: Ferrous Sulfate 324 MG TABLET.DR PO ×2 (09:56→20:59)
[2023-09-08] MEDS: Omeprazole 20 MG CAPSULE.DR PO ×2 (09:56→20:58)
--- NOTE | 2023-09-08 10:24 | P.PNIM_ITS ---
Subjective Subjective Date of Service: 09/08/23 Interval History: cough Physical Exam 2 Vital Signs: Vital Signs: Last Vital Signs Temp 98.6 F 09/08/23 07:11 Pulse 89 09/08/23 08:15 Resp 18 09/08/23 08:15 BP 113/72 09/08/23 07:11 Pulse Ox 99 09/08/23 07:11 O2 Del Method Nasal Cannula 09/08/23 07:11 O2 Flow Rate 1 09/08/23 03:14 BMI result Body Mass Index 21.9 Const: Other: Constitutional : alert, not in distress Neck : Normal inspection, Supple Cardiovascular : RRR, no JVP, Left lower extremity less edema with no more warmth or tenderness Respiratory : good bilateral air entry, no crackles,expiratory wheezes bilaterally Gastrointestinal: soft, lax, Normal bowel sounds, Non tender Skin : Warm, Dry, stage 1 sacral wound Neurological :alert, oriented , No focal deficit Objective Data Active Medications Acetaminophen (Acetaminophen 325 Mg Tablet) 650 mg PO Q6H PRN PRN Reason: Pain, Mild (Pain Scale 1-3) Last Admin: 09/07/23 20:25 Dose: 650 mg Documented By: FORREST Acetylcysteine (Acetylcysteine 10 % 400 Mg/4 Ml Vial) 400 mg INHALE RBID [facility] Last Admin: 09/08/23 08:15 Dose: Not Given Documented By: CALLI Non-Admin Reason: Patient Refused Albuterol Sulfate (Albuterol Sulfate 90 Mcg 8 Gm Inhaler) 2 puff INHALE Q4H PRN PRN Reason: Shortness Of Breath Or Wheezing Apixaban (Apixaban 5 Mg Tablet) 5 mg PO BID [facility] Last Admin: 09/08/23 09:56 Dose: 5 mg Documented By: LETICIA Ferrous Sulfate (Ferrous Sulfate 324 Mg Tablet.Dr) 324 mg PO BID [facility] Last Admin: 09/08/23 09:56 Dose: 324 mg Documented By: LETICIA Fluticasone Propionate (Fluticasone Propionate 250 Mcg Blst.W.Dev) 1 puff INHALE RBID [facility] Last Admin: 09/08/23 08:15 Dose: Not Given Documented By: CALLI Non-Admin Reason: Patient Refused Guaifenesin (Guaifenesin 200 Mg/10 Ml 10 Ml Liquid) 10 ml PO Q6H PRN PRN Reason: Cough Last Admin: 09/06/23 20:06 Dose: 10 ml Documented By: LUKE Guaifenesin (Guaifenesin La 600 Mg Tab.Er.12h) 1,200 mg PO BID [facility] Last Admin: 09/08/23 09:55 Dose: 1,200 mg Documented By: LETICIA Hydromorphone HCl (Hydromorphone Hcl 2 Mg Tablet) 1 mg PO Q3H PRN PRN Reason: mod pain Last Admin: 09/08/23 09:55 Dose: 1 mg Documented By: LETICIA Daptomycin 500 mg/ Sodium (Chloride) 60 mls @ 120 mls/hr IV Q24H [facility] Last Infusion: 09/07/23 17:28 Dose: Infused Documented By: CECILIO Lidocaine (Lidocaine 4 % Patch Adh..Patch) 1 patch TRANSDERMA DAILY [facility]; Protocol Last Admin: 09/08/23 09:56 Dose: 1 patch Documented By: LETICIA Melatonin (Melatonin 3 Mg Tablet) 6 mg PO BEDTIME PRN PRN Reason: Insomnia Last Admin: 09/07/23 20:26 Dose: 6 mg Documented By: FORREST Montelukast Sodium (Montelukast Sodium 10 Mg Tablet) 10 mg PO BEDTIME [facility] Last Admin: 09/07/23 20:25 Dose: 10 mg Documented By: FORREST Omeprazole (Omeprazole 20 Mg Capsule.Dr) 20 mg PO BID [facility] Last Admin: 09/08/23 09:56 Dose: 20 mg Documented By: LETICIA Ondansetron HCl (Ondansetron Hcl 4 Mg/2 Ml Vial) 4 mg IVPUSH Q8H PRN PRN Reason: Nausea and Vomiting Last Admin: 08/30/23 17:57 Dose: 4 mg Documented By: RIN Sodium Chloride (0.9 % Sodium Chloride Flush 3 Ml Syringe) 3 ml IVFLUSH QSHIFT [facility] Last Admin: 09/08/23 09:56 Dose: 3 ml Documented By: LETIICA Tiotropium [place] (Tiotropium [place] 2.5 Mcg 1 Puff/2.5 Mcg Mist.Inhal) 2 puff INHALE RDAILY [facility] Last Admin: 09/08/23 08:15 Dose: Not Given Documented By: CALLI Non-Admin Reason: Patient Refused Vitamin D (Cholecalciferol (Vitamin D3) 25 Mcg Tablet) 25 mcg PO DAILY [facility] Last Admin: 09/08/23 09:56 Dose: 25 mcg Documented By: LETICIA Labs 09/08/23 07:23 09/03/23 08:31 Labs: Laboratory Results - last 24 hr 09/08/23 07:23 MCV 99.0 H MCH 31.1 MCHC 31.4 RDW 15.5 Plt Count 292 D MPV 9.3 L Absolute Nucleated RBC 0.000 Nucleated RBC % (auto) 0.0 Assessment and Plan (1) Pneumonia: Status: Acute (2) Acute on chronic anemia: Status: Acute (3) DVT (deep venous thrombosis): Status: Acute (4) Bacteremia: Status: Acute Plan 73yo F with COPD, HCV, hx IDU, hx MRSA abscesses, hx Cdiff, hx E coli colitis, hx osteomyelitis of humerus/clavicle/scapula with MSSA bacteremia and treated at [facility] [place], chronic anemia recently admitted here 08/03/23 for anemia .left AMA 08/14/23 despite fever concerning for infection. found to have MRSA bacteremia and called back to hospital and also found to have bilateral occlusive DVTs persistently bacteremic. MRSA bacteremia dapto 08/17- [changed due to difficult phlebotomy- couldn't monitor troughs] TTE 08/16: The tricuspid valve was not well visualized. 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 CXR showing worsening atekactasis in RML, less likely mass On Daptomycin as Abx Incentive spirometry for now Chest Physiotherapy and Mucomist neb repeat cxr in 4-6 weeks occlusive BLE DVTs Imporivng change back to eliquis Vasc Surg consult, not a candidate for endovascular intervention given uncontrolled infection not candidate for IVC filter given bacteremia, no gross or unstable bleed, will continue AC and transfuse as needed acute on chronic anemia Stable transfused total of 3 pRBCs, H+H responded appropriately continue ppi Patient refused doing EGD and Colonoscopy this hospital stay transfuse as needed, no gross bleeding Follow H&H hypoNa, mild hypoMg repleted Multiple wounds Wound Care consulted last admission: Coccyx wound, unstageable > cleanse with normal saline, apply triad to periwound, lightly pack coccyx with Durafiber Ag cover with sacral foam dressing, daily Right arm AC, abrasion > cleanse with normal saline, apply skin prep to periwound, lightly packed with Durafiber Ag, cover with foam dressing, daily Left forearm> cleanse with normal saline, or cover scabbed area with hydrocolloid dressing, change every 3 days In addition, frequent turning/repositioning every 2 hours to offload bony prominences along with air loss mattress. COPD continue Flovent + Spiriva, prn albuterol GERD continue PPI Hx opioid abuse met Recovery Team, denies use since 2000, attributes recent +Utox to pain meds received in hospital HCV Ab+, viral load negative HBV immune from prior infection HIV negative VTE ppx LMWH dispo will need STR eventually for IV ABX reason for continued hospitalization: On IV antibiotics for tretment of MRSA bacteremia pending safe discharge plan Quality Stroke Does the patient have a stroke diagnosis?: No VTE Prior VTE?: No VTE Risk Level:: Medical - moderate - high VTE Device Contraindication: Treatment Not Indicated VTE Drug Contraindication: N/A - Med Ordered
[2023-09-08] MEDS: DAPTOmycin 500 MG in 0.9 % Sodium Chloride 50 ML 120 MG IV (13:54)
[2023-09-08] MEDS: guaiFENesin 200 MG/10 ML 10 ML LIQUID PO (14:51)
[2023-09-08] MEDS: Acetaminophen 325 MG TABLET 650 MG PO (15:54)
[2023-09-08] MEDS: Montelukast Sodium 10 MG TABLET PO (21:00)
[2023-09-08 21:01] LABS: Alanine Aminotransferase 9 U/L (0-31); Albumin Level 1.9 g/dL (3.5-5.0); Alkaline Phosphatase 113 U/L (39-117); Anion Gap 11 (12-20); Aspartate Amino Transferase 14 U/L (5-31); Bilirubin Direct < 0.2 mg/dL (0.0-0.5); Bilirubin Total 0.1 mg/dL (0.0-1.0); Blood Urea Nitrogen 14 mg/dL (9-16); Calcium 8.1 mg/dL (8.4-10.2); Carbon Dioxide 26 mmol/L (22-29); Chloride 104 mmol/L (96-108); Creatinine Clr Calc Pharmacy 63.7; Estimated Glomerular Filt Rate > 60; Glucose Fasting 113 mg/dL (60-99); Magnesium 1.5 mg/dL (1.6-2.6); Sodium 136 mmol/L (135-145)
[2023-09-09] VITALS (8 sets, daily range): BP systolic 123–139; BP diastolic 63–74; PULSE 86–96; RESP 16–20; TEMP 36.1–37; O2SAT 96–99
[2023-09-09] MEDS: HYDROmorphone HCl 2 MG TABLET 1 MG PO ×5 (02:05→17:49)
[2023-09-09] MEDS: guaiFENesin 200 MG/10 ML 10 ML LIQUID PO ×2 (02:25→08:04)
[2023-09-09] MEDS: Acetaminophen 325 MG TABLET 650 MG PO ×2 (06:03→13:49)
--- NOTE | 2023-09-09 06:18 | PC.NURSE ---
Assumed care of patient at 03:00. VSS. See assessment for full details. Medicated for pain with +effect. Patient resting in bed appearing comfortable, sleeping. Breathing is even and unlabored without distress on baseline 2L nc. 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
[2023-09-09] MEDS: Omeprazole 20 MG CAPSULE.DR PO ×2 (07:59→20:36)
[2023-09-09] MEDS: Lidocaine 4 % Patch ADH..PATCH 1 PATCH TRANSDERMA (07:59)
[2023-09-09] MEDS: guaiFENesin LA 600 MG TAB.ER.12H 1200 MG PO ×2 (07:59→20:36)
[2023-09-09] MEDS: Apixaban 5 MG TABLET PO ×2 (07:59→20:36)
[2023-09-09] MEDS: Cholecalciferol (Vitamin D3) 25 MCG TABLET PO (07:59)
[2023-09-09] MEDS: Ferrous Sulfate 324 MG TABLET.DR PO ×2 (07:59→20:36)
[2023-09-09] MEDS: 0.9 % Sodium Chloride Flush 3 ML SYRINGE IVFLUSH ×2 (08:00→17:50)
[2023-09-09] MEDS: Fluticasone Propionate 250 MCG BLST.W.DEV 1 PUFF INHALE ×2 (08:20→20:09)
[2023-09-09] MEDS: Tiotropium Bromide 2.5 mcg 1 PUFF/2.5 MCG MIST.INHAL 2 PUFF INHALE (08:20)
--- NOTE | 2023-09-09 09:12 | P.PNIM_ITS ---
Subjective Subjective Date of Service: 09/09/23 Interval History: cough Physical Exam 2 Vital Signs: Vital Signs: Last Vital Signs Temp 98.3 F 09/09/23 07:25 Pulse 96 09/09/23 08:24 Resp 20 09/09/23 08:24 BP 139/66 09/09/23 07:25 Pulse Ox 97 09/09/23 07:25 O2 Del Method Nasal Cannula 09/09/23 07:25 O2 Flow Rate 2 09/09/23 07:25 BMI result Body Mass Index 21.9 Const: Other: Constitutional : alert, not in distress Neck : Normal inspection, Supple Cardiovascular : RRR, no JVP, Left lower extremity less edema with no more warmth or tenderness Respiratory : good bilateral air entry, no crackles,expiratory wheezes bilaterally Gastrointestinal: soft, lax, Normal bowel sounds, Non tender Skin : Warm, Dry, stage 1 sacral wound Neurological :alert, oriented , No focal deficit Objective Data Active Medications Acetaminophen (Acetaminophen 325 Mg Tablet) 650 mg PO Q6H PRN PRN Reason: Pain, Mild (Pain Scale 1-3) Last Admin: 09/09/23 06:03 Dose: 650 mg Documented By: FORREST Acetylcysteine (Acetylcysteine 10 % 400 Mg/4 Ml Vial) 400 mg INHALE RBID [facility] Last Admin: 09/09/23 08:26 Dose: Not Given Documented By: ARANZA Non-Admin Reason: See Note Albuterol Sulfate (Albuterol Sulfate 90 Mcg 8 Gm Inhaler) 2 puff INHALE Q4H PRN PRN Reason: Shortness Of Breath Or Wheezing Apixaban (Apixaban 5 Mg Tablet) 5 mg PO BID [facility] Last Admin: 09/09/23 07:59 Dose: 5 mg Documented By: LETICIA Ferrous Sulfate (Ferrous Sulfate 324 Mg Tablet.Dr) 324 mg PO BID [facility] Last Admin: 09/09/23 07:59 Dose: 324 mg Documented By: LETICIA Fluticasone Propionate (Fluticasone Propionate 250 Mcg Blst.W.Dev) 1 puff INHALE RBID [facility] Last Admin: 09/09/23 08:20 Dose: 1 puff Documented By: ARANZA Guaifenesin (Guaifenesin 200 Mg/10 Ml 10 Ml Liquid) 10 ml PO Q6H PRN PRN Reason: Cough Last Admin: 09/09/23 08:04 Dose: 10 ml Documented By: LETICIA Comments: MD everton buitrago to administer early Guaifenesin (Guaifenesin [place] 600 Mg Tab.Er.12h) 1,200 mg PO BID [facility] Last Admin: 09/09/23 07:59 Dose: 1,200 mg Documented By: LETICIA Hydromorphone HCl (Hydromorphone Hcl 2 Mg Tablet) 1 mg PO Q3H PRN PRN Reason: mod pain Last Admin: 09/09/23 06:03 Dose: 1 mg Documented By: FORREST Daptomycin 500 mg/ Sodium (Chloride) 60 mls @ 120 mls/hr IV Q24H [facility] Last Infusion: 09/08/23 14:50 Dose: Infused Documented By: LETICIA Lidocaine (Lidocaine 4 % Patch Adh..Patch) 1 patch TRANSDERMA DAILY [facility]; Protocol Last Admin: 09/09/23 07:59 Dose: 1 patch Documented By: LETICIA Melatonin (Melatonin 3 Mg Tablet) 6 mg PO BEDTIME PRN PRN Reason: Insomnia Last Admin: 09/07/23 20:26 Dose: 6 mg Documented By: FORREST Montelukast Sodium (Montelukast Sodium 10 Mg Tablet) 10 mg PO BEDTIME [facility] Last Admin: 09/08/23 21:00 Dose: 10 mg Documented By: ARGENTINA Omeprazole (Omeprazole 20 Mg Capsule.Dr) 20 mg PO BID [facility] Last Admin: 09/09/23 07:59 Dose: 20 mg Documented By: LETICIA Ondansetron HCl (Ondansetron Hcl 4 Mg/2 Ml Vial) 4 mg IVPUSH Q8H PRN PRN Reason: Nausea and Vomiting Last Admin: 08/30/23 17:57 Dose: 4 mg Documented By: RIN Sodium Chloride (0.9 % Sodium Chloride Flush 3 Ml Syringe) 3 ml IVFLUSH QSHIFT [facility] Last Admin: 09/09/23 08:00 Dose: 3 ml Documented By: LETICIA Tiotropium [place] (Tiotropium [place] 2.5 Mcg 1 Puff/2.5 Mcg Mist.Inhal) 2 puff INHALE RDAILY [facility] Last Admin: 09/09/23 08:20 Dose: 2 puff Documented By: ARANZA Vitamin D (Cholecalciferol (Vitamin D3) 25 Mcg Tablet) 25 mcg PO DAILY [facility] Last Admin: 09/09/23 07:59 Dose: 25 mcg Documented By: LETICIA Labs 09/08/23 07:23 09/08/23 20:30 Labs: Laboratory Results - last 24 hr 09/08/23 20:30 Anion Gap 11 L Estim Creat Clear Calc 63.7 Estimated GFR > 60 Fasting Glucose 113 H Calcium 8.1 L Magnesium 1.5 L Total Bilirubin 0.1 Direct Bilirubin < 0.2 AST 14 ALT 9 Alkaline Phosphatase 113 Total Creatine Kinase < 7 L Total Protein 7.0 Albumin 1.9 L Assessment and Plan (1) Pneumonia: Status: Acute (2) Acute on chronic anemia: Status: Acute (3) DVT (deep venous thrombosis): Status: Acute (4) Bacteremia: Status: Acute Plan 73yo F with COPD, HCV, hx IDU, hx MRSA abscesses, hx Cdiff, hx E coli colitis, hx osteomyelitis of humerus/clavicle/scapula with MSSA bacteremia and treated at [facility] [place], chronic anemia recently admitted here 08/03/23 for anemia .left AMA 08/14/23 despite fever concerning for infection. found to have MRSA bacteremia and called back to hospital and also found to have bilateral occlusive DVTs persistently bacteremic. MRSA bacteremia dapto 08/17- [changed due to difficult phlebotomy- couldn't monitor troughs] TTE 08/16: The tricuspid valve was not well visualized. 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 CXR showing worsening atekactasis in RML, less likely mass On Daptomycin as Abx Incentive spirometry for now Chest Physiotherapy and Mucomist neb repeat cxr in 4-6 weeks occlusive BLE DVTs Imporivng change back to [facility] Surg consult, not a candidate for endovascular intervention given uncontrolled infection not candidate for IVC filter given bacteremia, no gross or unstable bleed, will continue AC and transfuse as needed acute on chronic anemia Stable transfused total of 3 pRBCs, H+H responded appropriately continue ppi Patient refused doing EGD and Colonoscopy this hospital stay transfuse as needed, no gross bleeding Follow H&H hypoNa, mild hypoMg repleted Multiple wounds Wound Care consulted last admission: Coccyx wound, unstageable > cleanse with normal saline, apply triad to periwound, lightly pack coccyx with Durafiber Ag cover with sacral foam dressing, daily Right arm AC, abrasion > cleanse with normal saline, apply skin prep to periwound, lightly packed with Durafiber Ag, cover with foam dressing, daily Left forearm> cleanse with normal saline, or cover scabbed area with hydrocolloid dressing, change every 3 days In addition, frequent turning/repositioning every 2 hours to offload bony prominences along with air loss mattress. COPD continue Flovent + Spiriva, prn albuterol GERD continue PPI Hx opioid abuse met Recovery Team, denies use since 2000, attributes recent +Utox to pain meds received in hospital HCV Ab+, viral load negative HBV immune from prior infection HIV negative VTE ppx LMWH dispo will need STR eventually for IV ABX reason for continued hospitalization: On IV antibiotics for tretment of MRSA bacteremia pending safe discharge plan Quality Stroke Does the patient have a stroke diagnosis?: No VTE Prior VTE?: No VTE Risk Level:: Medical - moderate - high VTE Device Contraindication: Treatment Not Indicated VTE Drug Contraindication: N/A - Med Ordered
[2023-09-09] MEDS: DAPTOmycin 500 MG in 0.9 % Sodium Chloride 50 ML 120 MG IV (14:27)
[2023-09-09] MEDS: Montelukast Sodium 10 MG TABLET PO (20:36)
[2023-09-09] MEDS: clonazePAM 1 MG TABLET PO (20:36)
[2023-09-10 04:00] VITALS: BP 138/68; PULSE 103; RESP 20; TEMP 36.3; O2SAT 98
[2023-09-10] MEDS: HYDROmorphone HCl 2 MG TABLET 1 MG PO (04:10)
--- NOTE | 2023-09-10 06:30 | PC.NURSE ---
pt was ring the oro for the pain med. provided Dilaudid 1mg po, provided incontinent care, coccyx foam dressing is D/C/I. pt was coughing but no complain, lung sounds is rhonchi to dim. offered cough med. she didn't responds it. she was request for the coccyx cushion. cleaned it and put her into coccyx area. will continue to monitor.
[2023-09-10 07:26] VITALS: BP 110/58; PULSE 98; RESP 20; TEMP 36.2; O2SAT 96
[2023-09-10 07:35] LABS: Hematocrit 28.2 % (37.0-47.0); Hemoglobin 8.9 g/dl (12.0-16.0); Mean Corpuscular HGB Conc 31.6 g/dl (31.0-35.0); Mean Corpuscular Hemoglobin 31.8 pg (27.0-33.0); Mean Corpuscular Volume 100.7 fL (80.0-98.0); Mean Platelet Volume 9.6 fL (9.4-12.3); Platelet Count 336 X10*3/uL (160-400); Red Cell Distribution Width 15.1 % (11.0-16.0); White Blood Count 5.7 X10*3/uL (4.8-10.8)
[2023-09-10 07:51] LABS: Anion Gap 14 (12-20); Blood Urea Nitrogen 14 mg/dL (9-16); Calcium 8.1 mg/dL (8.4-10.2); Carbon Dioxide 21 mmol/L (22-29); Chloride 107 mmol/L (96-108); Creatinine Clr Calc Pharmacy 64.6; Estimated Glomerular Filt Rate > 60; Glucose Fasting 103 mg/dL (60-99); Potassium 3.9 mmol/L (3.3-5.1); Sodium 138 mmol/L (135-145)
--- NOTE | 2023-09-10 08:24 | P.PNIM_ITS ---
Subjective Subjective Date of Service: 09/10/23 Interval History: cough Physical Exam 2 Vital Signs: Vital Signs: Last Vital Signs Temp 97.1 F 09/10/23 07:26 Pulse 98 09/10/23 07:26 Resp 20 09/10/23 07:26 BP 110/58 L 09/10/23 07:26 Pulse Ox 96 09/10/23 07:26 O2 Del Method Nasal Cannula 09/10/23 07:26 O2 Flow Rate 2 09/10/23 04:00 BMI result Body Mass Index 21.9 Const: Other: Constitutional : alert, not in distress Neck : Normal inspection, Supple Cardiovascular : RRR, no JVP, Left lower extremity less edema with no more warmth or tenderness Respiratory : good bilateral air entry, no crackles,expiratory wheezes bilaterally Gastrointestinal: soft, lax, Normal bowel sounds, Non tender Skin : Warm, Dry, stage 1 sacral wound Neurological :alert, oriented , No focal deficit Objective Data Active Medications Acetaminophen (Acetaminophen 325 Mg Tablet) 650 mg PO Q6H PRN PRN Reason: Pain, Mild (Pain Scale 1-3) Last Admin: 09/09/23 13:49 Dose: 650 mg Documented By: LETICIA Acetylcysteine (Acetylcysteine 10 % 400 Mg/4 Ml Vial) 400 mg INHALE RBID [facility] Last Admin: 09/09/23 20:20 Dose: Not Given Documented By: GORDY Non-Admin Reason: Patient Refused Albuterol Sulfate (Albuterol Sulfate 90 Mcg 8 Gm Inhaler) 2 puff INHALE Q4H PRN PRN Reason: Shortness Of Breath Or Wheezing Apixaban (Apixaban 5 Mg Tablet) 5 mg PO BID [facility] Last Admin: 09/09/23 20:36 Dose: 5 mg Documented By: ARGENTINA Clonazepam (Clonazepam 1 Mg Tablet) 1 mg PO BEDTIME PRN PRN Reason: insomnia Last Admin: 09/09/23 20:36 Dose: 1 mg Documented By: ARGENTINA Ferrous Sulfate (Ferrous Sulfate 324 Mg Tablet.Dr) 324 mg PO BID [facility] Last Admin: 09/09/23 20:36 Dose: 324 mg Documented By: ARGENTINA Fluticasone Propionate (Fluticasone Propionate 250 Mcg Blst.W.Dev) 1 puff INHALE RBID [facility] Last Admin: 09/09/23 20:09 Dose: 1 puff Documented By: GORDY Guaifenesin (Guaifenesin 200 Mg/10 Ml 10 Ml Liquid) 10 ml PO Q6H PRN PRN Reason: Cough Last Admin: 09/09/23 08:04 Dose: 10 ml Documented By: LETICIA Comments: MD everton buitrago to administer early Guaifenesin (Guaifenesin La 600 Mg Tab.Er.12h) 1,200 mg PO BID [facility] Last Admin: 09/09/23 20:36 Dose: 1,200 mg Documented By: ARGENTINA Hydromorphone HCl (Hydromorphone Hcl 2 Mg Tablet) 1 mg PO Q3H PRN PRN Reason: mod pain Last Admin: 09/10/23 04:10 Dose: 1 mg Documented By: ANGELA Daptomycin 500 mg/ Sodium (Chloride) 60 mls @ 120 mls/hr IV Q24H [facility] Last Infusion: 09/09/23 15:15 Dose: Infused Documented By: LETICIA Lidocaine (Lidocaine 4 % Patch Adh..Patch) 1 patch TRANSDERMA DAILY [facility]; Protocol Last Admin: 09/09/23 07:59 Dose: 1 patch Documented By: LETICIA Melatonin (Melatonin 3 Mg Tablet) 6 mg PO BEDTIME PRN PRN Reason: Insomnia Last Admin: 09/07/23 20:26 Dose: 6 mg Documented By: FORREST Montelukast Sodium (Montelukast Sodium 10 Mg Tablet) 10 mg PO BEDTIME [facility] Last Admin: 09/09/23 20:36 Dose: 10 mg Documented By: ARGENTINA Omeprazole (Omeprazole 20 Mg Capsule.Dr) 20 mg PO BID [facility] Last Admin: 09/09/23 20:36 Dose: 20 mg Documented By: ARGENTINA Ondansetron HCl (Ondansetron Hcl 4 Mg/2 Ml Vial) 4 mg IVPUSH Q8H PRN PRN Reason: Nausea and Vomiting Last Admin: 08/30/23 17:57 Dose: 4 mg Documented By: RIN Sodium Chloride (0.9 % Sodium Chloride Flush 3 Ml Syringe) 3 ml IVFLUSH QSHIFT [facility] Last Admin: 09/10/23 01:05 Dose: Not Given Documented By: ARGENTINA Non-Admin Reason: Previously Administered Tiotropium [place] (Tiotropium [place] 2.5 Mcg 1 Puff/2.5 Mcg Mist.Inhal) 2 puff INHALE RDAILY [facility] Last Admin: 09/09/23 08:20 Dose: 2 puff Documented By: ARANZA Vitamin D (Cholecalciferol (Vitamin D3) 25 Mcg Tablet) 25 mcg PO DAILY [facility] Last Admin: 09/09/23 07:59 Dose: 25 mcg Documented By: LETICIA Labs 09/10/23 07:20 09/10/23 07:20 Labs: Laboratory Results - last 24 hr 09/10/23 07:20 MCV 100.7 H MCH 31.8 MCHC 31.6 RDW 15.1 Plt Count 336 MPV 9.6 Absolute Nucleated RBC 0.000 Nucleated RBC % (auto) 0.0 Anion Gap 14 Estim Creat Clear Calc 64.6 Estimated GFR > 60 Fasting Glucose 103 H Calcium 8.1 L Assessment and Plan (1) Pneumonia: Status: Acute (2) Acute on chronic anemia: Status: Acute (3) DVT (deep venous thrombosis): Status: Acute (4) Bacteremia: Status: Acute Plan 73yo F with COPD, HCV, hx IDU, hx MRSA abscesses, hx Cdiff, hx E coli colitis, hx osteomyelitis of humerus/clavicle/scapula with MSSA bacteremia and treated at [facility] [place], chronic anemia recently admitted here 08/03/23 for anemia .left AMA 08/14/23 despite fever concerning for infection. found to have MRSA bacteremia and called back to hospital and also found to have bilateral occlusive DVTs persistently bacteremic. MRSA bacteremia dapto 08/17- [changed due to difficult phlebotomy- couldn't monitor troughs] TTE 08/16: The tricuspid valve was not well visualized. 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 CXR showing worsening atekactasis in RML, less likely mass On Daptomycin as Abx Incentive spirometry for now Chest Physiotherapy and Mucomist neb repeat cxr in 4-6 weeks occlusive BLE DVTs Imporivng change back to [facility] consult, not a candidate for endovascular intervention given uncontrolled infection not candidate for IVC filter given bacteremia, no gross or unstable bleed, will continue AC and transfuse as needed acute on chronic anemia Stable transfused total of 3 pRBCs, H+H responded appropriately continue ppi Patient refused doing EGD and Colonoscopy this hospital stay transfuse as needed, no gross bleeding Follow H&H hypoNa, mild hypoMg repleted Multiple wounds Wound Care consulted last admission: Coccyx wound, unstageable > cleanse with normal saline, apply triad to periwound, lightly pack coccyx with Durafiber Ag cover with sacral foam dressing, daily Right arm AC, abrasion > cleanse with normal saline, apply skin prep to periwound, lightly packed with Durafiber Ag, cover with foam dressing, daily Left forearm> cleanse with normal saline, or cover scabbed area with hydrocolloid dressing, change every 3 days In addition, frequent turning/repositioning every 2 hours to offload bony prominences along with air loss mattress. COPD continue Flovent + Spiriva, prn albuterol GERD continue PPI Hx opioid abuse met Recovery Team, denies use since 2000, attributes recent +Utox to pain meds received in hospital HCV Ab+, viral load negative HBV immune from prior infection HIV negative VTE ppx LMWH dispo will need STR eventually for IV ABX reason for continued hospitalization: On IV antibiotics for tretment of MRSA bacteremia pending safe discharge plan Quality Stroke Does the patient have a stroke diagnosis?: No VTE Prior VTE?: No VTE Risk Level:: Medical - moderate - high VTE Device Contraindication: Treatment Not Indicated VTE Drug Contraindication: N/A - Med Ordered
[2023-09-10] MEDS: Tiotropium Bromide 2.5 mcg 1 PUFF/2.5 MCG MIST.INHAL 2 PUFF INHALE (08:38)
[2023-09-10] MEDS: Fluticasone Propionate 250 MCG BLST.W.DEV 1 PUFF INHALE (08:38)
[2023-09-10 08:39] VITALS: PULSE 98; RESP 20
[2023-09-10] MEDS: guaiFENesin LA 600 MG TAB.ER.12H 1200 MG PO (10:36)
[2023-09-10] MEDS: 0.9 % Sodium Chloride Flush 3 ML SYRINGE IVFLUSH (10:37)
[2023-09-10] MEDS: Ferrous Sulfate 324 MG TABLET.DR PO (10:37)
[2023-09-10] MEDS: Cholecalciferol (Vitamin D3) 25 MCG TABLET PO (10:37)
[2023-09-10] MEDS: Apixaban 5 MG TABLET PO (10:37)
[2023-09-10] MEDS: Omeprazole 20 MG CAPSULE.DR PO (10:40)
--- NOTE | 2023-09-10 11:35 | MHC.CLN ---
F/U PO INTAKE VARIABLE, 25-100%. DIET RX: REGULAR-APPROPRIATE. CONTINUES WITH UNSTAGEABLE AREA TO COCCYX. PT RECEIVING ENSURE MAX BID (300 KCALS, 60 G PROTEIN) TO PROMOTE WOUND HEALING. PT RECEIVING GELATEIN SUPPLEMENT BID (320 KCALS, 40 G PROTIEN). CONTINUE TO MONITOR PO INTAKE AND ENCOURAGE SUPPLEMENTS. RD TO FOLLOW WEEKLY.
--- NOTE | 2023-09-10 12:49 | P.DS_ITS ---
DS: Providers Provider Date of Service: 09/10/23 Date of admission: 08/15/23 22:20 Primary care physician: Karla Ceballos MD Consults: 08/15/23 23:04 Consult to Infectious Diseases Routine Consulting Provider: [facility] [place] Infectious Disease Reason for consultation: Bacteremia of unclear etiology 08/18/23 07:43 Addiction Medicine Routine Consulting Provider: Addiction Covering Reason for consultation: fentanly 08/18/23 07:45 Consult to Vascular Surgery Routine Consulting Provider: [facility] [place] Vascular Services Reason for consultation: occlusive and nearly occlusive bilateral lower extremity DVT 08/19/23 08:02 Consult to Cardiology Routine Consulting Provider: [facility] [place] Cardiovascular Services Reason for consultation: persistent MRSA bacteremia. NIC? 08/20/23 14:25 Consult to Wound Care Routine Reason for consultation: coccyx wound and left and right antecubital wounds Has provider been notified: Yes 08/28/23 09:15 Consult to Gastroenterology Routine Consulting Provider: Maria A Martinez Reason for consultation: recent gastric ulcer, on therapeutic lovenox, ?risk for NIC 09/02/23 13:45 Consult to Wound Care Routine Reason for consultation: Sacral dry ulcer 09/05/23 11:41 Consult to Pulmonology Routine Consulting Provider: [facility] [place] Pulmonology Services Reason for consultation: Evaluation of difficulties breathing, Abnormal CXR w RML infiltrate DS: Diagnosis Discharge Diagnosis (1) Pneumonia: Status: Acute (2) Acute on chronic anemia: Status: Acute (3) DVT (deep venous thrombosis): Status: Acute (4) Bacteremia: Status: Acute DS: Summary Hospital Course Hospital Course: from initial hpi: 73-year-old female with a PMH significant for?COPD, hepatitis C, IV drug use, history of?MRSA abscesses,?history of c dif, history E. coli colitis, osteomyelitis of the humerus, clavicle, and scapula with MSSA bacteremia in June of 2023 and was treated with prison Abx?at [facility] who was called back to the ED after lab work revealed 2/2 blood cultures positive for Staphylococcus aureus. Patient is non ambulatory and lives with a [employer] TECH[employer] ASSISTANT 24/7. Patient was previously hospitalized here from 08/03/2023 through 08/14/2023 and initially treated for acute blood loss anemia due to lower GI bleed ultimately attributed to infectious colitis. Patient was transfused 2 units PRBCs and H&H remained stable. Patient underwent an upper endoscopy which showed no esophagitis or Faulkner's, but did show moderate gastric erythema and non bleeding stomach ulcers. During her stay patient became encephalopathic which was attributed to use of narcotics for pain management. Yesterday patient developed fever of 103.1 and workup showed elevated procalcitonin with negative CXR, and negative RSV/flu/COVID. However patient decided to leave AMA since she she said she was exhausted and not feeling well, he wanted to go home to get a good night's sleep. Patient reports fever and chills, and 10/10 lower back pain around her sacral decubitus ulcer. In the ED patient adamantly refused central line and threatened to leave AMA if could not get peripheral IV access. In the ED patient with low-grade temp of 99.3 degrees, tachycardic up to 106, and slightly hypertensive at 152/68, satting at 100% O2 on RA. Labs were significant for H&H 7.2/22.6, platelets 152, albumin 1.9. Electrolytes WNL. Lactic acid WNL at 2.0. Hepatic function baseline. CT?of lumbar spine negative for fracture and no definitive evidence of osteomyelitis or diskitis, but did show evidence of possible discogenic sclerosis, and multilevel degenerative disc disease and spinal stenosis. EKG demonstrated sinus tachycardia of 132 with PACs, prolonged QTc of 577, and no evidence of significant ST elevations or depressions. Pt was treated with vancomycin and IVF. Pt will be admitted to the hospital for treatment further evaluation of bacteremia. hospital course: Patient was admitted for MRSA bacteremia. Could not clear with vancomycin. Was changed to daptomycin. Took until 08/29/23 to clear cultures. Workup including WBC scan and TTE was negative for source. PICC line was placed and plan was to continue IV daptomycin until 10/11/2023. During hospitalization patient had acute metabolic encephalopathy which was multifactorial in resolved by time of discharge. She also had acute hypoxic respiratory failure due to right middle lobe atelectasis/pneumonia. Plan was to follow-up imaging in 4-6 weeks. Also noted to have occlusive bilateral lower extremity DVTs and was continued on apixaban. Patient had acute on chronic anemia, likely mixture of acute blood loss anemia and inflammation. Patient refused EGD and colonoscopy. She was transfused 3 units PRBC during hospitalization and continued on PPI. She had mild hyponatremia. She had hypomagnesemia which was replaced. She has multiple wounds, coccyx unstageable, right arm AC abrasion, left forearm. She received local care. For COPD she was continued on Flovent and Spiriva. For opiate dependence was continue methadone. Plan [facility] due to patient's history of opiate dependence, however, patient decided to leave against medical advice. She was able to demonstrate understanding of the risks of do so including . Time Attestation Discharge coordination time: Greater than 30 minutes Quality: Safe Use of Opioids Does Pt have an Active Cancer Diagnosis on the Problem List?: No Quality: Stroke Does the patient have a stroke diagnosis?: No Physical Exam Vital Signs: Vital Signs: Last Vital Signs Temp 97.1 F 09/10/23 07:26 Pulse 98 09/10/23 08:39 Resp 20 09/10/23 08:39 BP 110/58 L 09/10/23 07:26 Pulse Ox 96 09/10/23 07:26 O2 Del Method Nasal Cannula 09/10/23 07:26 O2 Flow Rate 2 09/10/23 04:00 BMI result Body Mass Index 21.9 Const: Other: Constitutional : alert, not in distress Neck : Normal inspection, Supple Cardiovascular : RRR, no JVP, Left lower extremity less edema with no more warmth or tenderness Respiratory : good bilateral air entry, no crackles,expiratory wheezes bilaterally Gastrointestinal: soft, lax, Normal bowel sounds, Non tender Skin : Warm, Dry, stage 1 sacral wound Neurological :alert, oriented , No focal deficit DS: Data Data Completed and Pending Completed studies during hospitalization [Text1]: Procedures Excision of Duodenum, Via Natural or Artificial Opening Endoscopic, Diagnostic (08/05/23) Excision of Left Large Intestine, Via Natural or Artificial Opening Endoscopic, Diagnostic (08/05/23) Excision of Stomach, Pylorus, Via Natural or Artificial Opening Endoscopic, Diagnostic (08/05/23) Insertion of Infusion Device into Upper Vein, Percutaneous Approach (08/05/23) Transfusion of Nonautologous Red Blood Cells into Peripheral Vein, Percutaneous Approach (08/05/23) Labs on day of discharge: Laboratory Results - last 24 hr 09/10/23 07:20 WBC 5.7 RBC 2.80 L Hgb 8.9 L Hct 28.2 L MCV 100.7 H MCH 31.8 MCHC 31.6 RDW 15.1 Plt Count 336 MPV 9.6 Absolute Nucleated RBC 0.000 Nucleated RBC % (auto) 0.0 Sodium 138 Potassium 3.9 D Chloride 107 Carbon Dioxide 21 L Anion Gap 14 BUN 14 Creatinine 0.66 Estim Creat Clear Calc 64.6 Estimated GFR > 60 Fasting Glucose 103 H Calcium 8.1 L Discharge Plan Discharge Anticipated Discharge Date/Time: 09/10/23 12:47 Patient Disposition: Left Against Medical Advice Discharge Diagnosis: bacteremia, dvt Referrals: Karla Ceballos MD [Primary Care Provider] - 1 Week Discharge Medications: New Eliquis 5 mg Tablet 5 mg PO BID Qty: 0 0RF Continued albuterol sulfate 2.5 mg /3 mL (0.083 %) solution for nebulization 2.5 mg inhalation Q4H PRN (Reason: Shortness Of Breath Or Wheezing) clonazepam 1 mg tablet 1 mg PO BEDTIME PRN (Reason: Anxiety) omeprazole 20 mg capsule,delayed release(DR/EC) 20 mg PO BID montelukast 10 mg tablet 10 mg PO DAILY fluticasone propionate [Flovent HFA] 220 mcg/actuation HFA aerosol inhaler 1 puff inhalation BID zolpidem 5 mg tablet 5 mg PO BEDTIME PRN (Reason: Insomnia) albuterol sulfate 90 mcg/actuation HFA aerosol inhaler 2 puff INHALATION Q4-6H PRN (Reason: Shortness Of Breath Or Wheezing) ferrous sulfate 325 mg (65 mg iron) tablet,delayed release (DR/EC) 325 mg PO BID tiotropium bromide [Spiriva with HandiHaler] 18 mcg capsule, w/inhalation device 1 cap inhalation DAILY cholecalciferol (vitamin D3) 25 mcg (1,000 unit) Tablet 25 mcg PO DAILY Discharge Orders: Discharge Order (Routine); Ordered 09/10/23 Ordered By: Joshua Begum Diet: Advance to usual diet Activity on Discharge: As tolerated Care Plan Goals: recovery Health Concerns: bacteremia, dvt Plan of Treatment: cannot treat out of hospital, continue eliquis Assessment: see above
--- NOTE | 2023-09-10 13:37 | HO.REMOVAL ---
Removal of PICC/Midline Removal of PICC/Midline: Removal of PICC/Midline: 1. Date: 09/10/23 2. Reason removed: Pt leaving AMA 3. Inserted length: 38 cm 4. Removed length: 38cm 5. A dressing was placed over the site upon removal. No edema or bleeding at the site.
== END 2023-09-10 13:28 | disposition left against medical advice (07) | DRG 871 ==
LOC: HO.ED 22:20 → HO.EDOVER 22:34 → HO.S3 23:27 → HO.IMC 08-31 04:55
PROVIDERS: Family Medicine; Internal Medicine; Physician Assistant Surgical; Student in an Organized Health Care Education/Training Program; Admitting Provider Student in an Organized Health Care Education/Training Program; Emergency Provider Internal Medicine; PCP Pediatrics; Visit Provider Internal Medicine
DX: R78.81 Bacteremia (principal); G93.41 Metabolic encephalopathy; J18.9 Pneumonia, unspecified organism; J96.01 Acute respiratory failure with hypoxia; I82.413 Acute embolism and thrombosis of femoral vein, bilateral; D62 Acute posthemorrhagic anemia; E87.1 Hypo-osmolality and hyponatremia; F05 Delirium due to known physiological condition; J98.11 Atelectasis; J44.0 Chronic obstructive pulmonary disease with (acute) lower respiratory infection; D63.8 Anemia in other chronic diseases classified elsewhere; E86.1 Hypovolemia; K27.9 Peptic ulcer, site unspecified, unspecified as acute or chronic, without hemorrhage or perforation; B95.62 Methicillin resistant Staphylococcus aureus infection as the cause of diseases classified elsewhere; H54.8 Legal blindness, as defined in USA; M62.422 Contracture of muscle, left upper arm; I27.20 Pulmonary hypertension, unspecified; L89.150 Pressure ulcer of sacral region, unstageable; E83.42 Hypomagnesemia; K21.9 Gastro-esophageal reflux disease without esophagitis; Z88.0 Allergy status to penicillin; Z79.51 Long term (current) use of inhaled steroids; Z79.899 Other long term (current) drug therapy
CPT/HCPCS: 36415; 36556; 36573; 36600; 71045; 71046; 72126; 72129; 72132; 73010; 73060; 76937; 78306; 80048; 80053; 80076; 80307; 81001; 82272; 82550; 82784; 82803; 83010; 83540; 83605; 83735; 84165; 84484; 85025; 85027; 85652; 86140; 86334; 86704; 86706; 86803; 86850; 86880; 86900; 86901; 86923; 87040; 87071; 87077; 87086; 87147; 87186; 87205; 87340; 87389; 87522; 93005; 93306; 93970; 94640; 97110; 97163; 99285; A9521; C1751; C1894; J0330; J0878; J1650; J1940; J2060; J2270; J2405; J2704; J3370; J3475; J7120; P9016; Q9957; Q9967

== ENCOUNTER 2023-08-15 22:20 | Outpatient (BNV) | payer OTHER, SELFPAY | END 2023-08-22 11:30 | PROVIDERS: Admitting Provider Student in an Organized Health Care Education/Training Program; Emergency Provider Internal Medicine; PCP Pediatrics; Visit Provider Student in an Organized Health Care Education/Training Program | DX: R78.81 Bacteremia (principal); I82.413 Acute embolism and thrombosis of femoral vein, bilateral | CPT/HCPCS: 36556; 76937 ==

== ENCOUNTER 2023-08-15 22:20 | Outpatient (BNV) | payer OTHER, SELFPAY | END 2023-08-16 07:00 | PROVIDERS: Admitting Provider Student in an Organized Health Care Education/Training Program; Emergency Provider Internal Medicine; PCP Pediatrics; Visit Provider Internal Medicine | DX: I36.1 Nonrheumatic tricuspid (valve) insufficiency (principal); I34.81 Nonrheumatic mitral (valve) annulus calcification | CPT/HCPCS: 93306 ==

== ENCOUNTER 2023-08-15 22:20 | Outpatient (BNV) | payer OTHER, SELFPAY | END 2023-08-31 13:30 | PROVIDERS: Admitting Provider Student in an Organized Health Care Education/Training Program; Emergency Provider Internal Medicine; PCP Pediatrics; Visit Provider Radiology Diagnostic Radiology | DX: R78.81 Bacteremia (principal) | CPT/HCPCS: 36573 ==

== ENCOUNTER 2023-08-15 22:20 | Outpatient (BNV) | payer OTHER, SELFPAY | END 2023-08-31 04:13 | PROVIDERS: Admitting Provider Student in an Organized Health Care Education/Training Program; Emergency Provider Internal Medicine; PCP Pediatrics; Visit Provider Internal Medicine Cardiovascular Disease | DX: R00.0 Tachycardia, unspecified (principal); R94.31 Abnormal electrocardiogram [ECG] [EKG] | CPT/HCPCS: 93010 ==

== ENCOUNTER → 2023-08-15 22:20 | Outpatient (BNV) | payer OTHER, SELFPAY | PROVIDERS: Admitting Provider Student in an Organized Health Care Education/Training Program; Emergency Provider Internal Medicine; PCP Pediatrics; Visit Provider Internal Medicine Gastroenterology | DX: D64.9 Anemia, unspecified (principal) | CPT/HCPCS: 99222 ==

== ENCOUNTER → 2023-08-15 22:20 | Outpatient (BNV) | payer OTHER, SELFPAY | PROVIDERS: Admitting Provider Student in an Organized Health Care Education/Training Program; Emergency Provider Internal Medicine; PCP Pediatrics; Visit Provider Hospitalist | DX: J18.9 Pneumonia, unspecified organism (principal); R78.81 Bacteremia | CPT/HCPCS: 99223 ==

== ENCOUNTER → 2023-08-15 22:20 | Outpatient (BNV) | payer OTHER, SELFPAY | PROVIDERS: Admitting Provider Student in an Organized Health Care Education/Training Program; Emergency Provider Internal Medicine; PCP Pediatrics; Visit Provider Internal Medicine Cardiovascular Disease | DX: R78.81 Bacteremia (principal) | CPT/HCPCS: 99222; 99232; 99233 ==

== ENCOUNTER → 2023-08-15 22:20 | Outpatient (BNV) | payer OTHER, SELFPAY | PROVIDERS: Admitting Provider Student in an Organized Health Care Education/Training Program; Emergency Provider Internal Medicine; PCP Pediatrics; Visit Provider Internal Medicine | DX: I82.413 Acute embolism and thrombosis of femoral vein, bilateral (principal); R78.81 Bacteremia | CPT/HCPCS: 99232 ==

== ENCOUNTER → 2023-08-15 22:20 | Outpatient (BNV) | payer OTHER, SELFPAY | PROVIDERS: Admitting Provider Student in an Organized Health Care Education/Training Program; Emergency Provider Internal Medicine; PCP Pediatrics; Visit Provider Student in an Organized Health Care Education/Training Program | DX: I82.413 Acute embolism and thrombosis of femoral vein, bilateral (principal); J18.9 Pneumonia, unspecified organism; D64.9 Anemia, unspecified; R78.81 Bacteremia | CPT/HCPCS: 99223; 99231; 99232; 99233; 99239; 99499 ==

== ENCOUNTER → 2023-08-15 22:20 | Outpatient (BNV) | payer OTHER, SELFPAY | PROVIDERS: Admitting Provider Student in an Organized Health Care Education/Training Program; Emergency Provider Internal Medicine; PCP Pediatrics; Visit Provider Surgery Vascular Surgery | DX: I82.413 Acute embolism and thrombosis of femoral vein, bilateral (principal); Z79.01 Long term (current) use of anticoagulants | CPT/HCPCS: 99222; 99232 ==

== ENCOUNTER 2023-10-08 16:02 | Inpatient (IN) | payer OTHER, SELFPAY ==
[2023-10-08] VITALS (8 sets, daily range): BP systolic 108–148; BP diastolic 59–82; PULSE 85–126; RESP 3–19; TEMP 36.5–36.9; O2SAT 96–100; BMI 25.0
--- NOTE | ~2023-10-08 | CT_ITS ---
EXAMINATION: CT HEAD WITHOUT CONTRAST CLINICAL INFORMATION: Right sided extremity weakness. COMPARISON: None available. TECHNIQUE: Contiguous axial imaging was performed from the skull base to vertex without intravenous administration of contrast. This CT examination was performed using dose optimization techniques as appropriate, variously including the following: *Automated exposure control *Adjustment of mA and/or kV according to patient size (this includes techniques or standardized protocols for targeted exams where dose is matched to indication/reason for exam; i.e. extremities or head) *Use of iterative reconstruction technique DLP: 704 mGy-cm FINDINGS: There is no acute intra-axial, extra-axial bleed, masses or midline shift. There is no acute infarction in evolution. There is no edema. The ibarra to white matter differentiation is maintained normal. Bone windows reveal no calvarial abnormality. There is mild mucoperiosteal thickening in bilateral maxillary and left middle ethmoid sinuses. Rest of the paranasal sinuses and mastoid air cells are well-aerated. 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 CT/CT head/brain wo IV con IMPRESSION: 1. No acute intracranial process seen. 2. Chronic bilateral maxillary and left middle ethmoid sinus inflammatory changes.
--- NOTE | ~2023-10-08 | CT_ITS ---
EXAMINATION: CT SHOULDER WITHOUT CONTRAST, RIGHT CLINICAL INFORMATION: Right shoulder bump. Staph bacteremia. COMPARISON: Right scapular radiographs dated 08/18/2023. CT thoracic spine dated 08/19/2023 and chest radiograph dated 09/05/2023. TECHNIQUE: Diffuse axial CT images of the right shoulder were obtained without contrast. Sagittal and coronal reformats were provided and reviewed. This CT examination was performed using dose optimization techniques as appropriate, variously including the following: *Automated exposure control *Adjustment of mA and/or kV according to patient size (this includes techniques or standardized protocols for targeted exams where dose is matched to indication/reason for exam; i.e. extremities or head) *Use of iterative reconstruction technique DLP: 223 mGy-cm FINDINGS: Absence of the distal clavicle as well as attenuation and fragmentation of the acromion is redemonstrated, similar when compared to the radiographs dated 08/18/2023. There is a focal erosion/cortical defect at the anteromedial aspect of the humeral head measuring up to 1.9 cm in ML dimension. It is unclear if this is present on the prior radiographs. Moderate glenohumeral joint space narrowing with small marginal osteophytes. Superior subluxation of the humeral head indicating underlying rotator cuff tendon tears. Evaluation of the rotator cuff tendons severely limited on CT examination. Large glenohumeral joint effusion with a lobulated extension along the anterosuperior aspect of the joint measuring up to 3.9 cm and likely corresponding to the patient's reported lump. This measures as simple fluid signal and is likely related to the joint space. Findings could indicate an infectious or inflammatory arthropathy in the appropriate clinical setting. No soft tissue mass or fluid collection. Atherosclerotic calcifications. No axillary lymphadenopathy. Patchy areas of scarring and nodularity within the right lung with evaluation significantly limited due to respiratory motion. Right middle lobe opacification with air bronchograms and peripheral cystic change. These findings appear new when compared to the CT thoracic spine dated 08/19/2023. Dedicated CT chest could help further evaluate. CT/CT shoulder RT wo IV con IMPRESSION: 1. Absence of the distal clavicle as well as attenuation and fragmentation of the acromion is redemonstrated, similar when compared to the radiographs dated 08/18/2023. Focal erosion/cortical defect at the anteromedial aspect of the humeral head measuring up to 1.9 cm in ML dimension. It is unclear if this is present on the prior radiographs. 2. Large glenohumeral joint effusion with a lobulated extension along the anterosuperior aspect of the joint measuring up to 3.9 cm and likely corresponding to the patient's reported lump. This measures as simple fluid signal and is likely related to the joint space. Findings could indicate an infectious or inflammatory arthropathy in the appropriate clinical setting. 3. Moderate glenohumeral osteoarthritis. Superior subluxation of the humeral head indicating underlying rotator cuff tendon tears. Evaluation of the rotator cuff tendons severely limited on CT examination. 4. Patchy areas of scarring and nodularity within the right lung with evaluation significantly limited due to respiratory motion. Right middle lobe opacification with air bronchograms and peripheral cystic change. These findings appear new when compared to the CT thoracic spine dated 08/19/2023. Dedicated CT chest could help further evaluate.
--- NOTE | ~2023-10-08 | XR_ITS ---
EXAMINATION: XR SHOULDER, RIGHT CLINICAL INFORMATION: Right shoulder effusion COMPARISON: Right shoulder CT on 10/11/2023 TECHNIQUE: Three views of the right shoulder. FINDINGS: Redemonstration of absence of the distal clavicle. There are multiple small calcified densities in the region. There is a focal defect of the humeral head. There is degenerative disease of the acromium. The humeral head is located. There is increased soft tissue density surrounding the right humeral head. XR/XR shoulder RT min 2V IMPRESSION: 1. Redemonstration of absence of the distal clavicle. 2. Focal defect of the humeral head. 3. Increased soft tissue density surrounding the right humeral head consistent with shoulder effusion.
--- NOTE | 2023-10-08 16:56 | ED.GENADULT ---
HPI - General Adult General Chief complaint: General Medical Stated complaint: pt hasn't been able to walk or move their arms Time Seen by Provider: 10/08/23 16:56 Source: patient and EMS Mode of arrival: EMS Limitations: no limitations History of Present Illness HPI narrative: 73-year-old female with a PMH significant for?COPD, hepatitis C, history of IV drug use, history of?MRSA abscesses,?history of c dif, history E. coli colitis, osteomyelitis of the humerus, clavicle, and scapula with MSSA bacteremia in June of 2023 was admitted on 08/15 for MRSA bacteremia left against medical advice on 09/10/23 supposed to get IV daptomycin until 10/11 now comes back feeling weak especially for last 3 days she has a coccygeal decubitus unstageable patient also have bilateral lower extremity DVT on Eliquis Related Data Home Medications Medication Instructions Recorded Confirmed albuterol sulfate 2.5 mg/3 mL 2.5 mg inhalation Q4H PRN 08/03/23 10/08/23 (0.083 %) solution for nebulization Shortness Of Breath Or Wheezing albuterol sulfate 90 mcg/actuation 2 puff inhalation Q4-6H PRN 08/03/23 10/08/23 aerosol inhaler Shortness Of Breath Or Wheezing cholecalciferol (vitamin D3) 25 25 mcg PO DAILY 08/03/23 10/08/23 mcg (1,000 unit) tablet clonazepam 1 mg tablet 1 mg PO BEDTIME PRN Anxiety 08/03/23 10/08/23 ferrous sulfate 325 mg (65 mg 650 mg PO DAILY 08/03/23 10/08/23 iron) tablet,delayed release fluticasone propionate 220 1 puff inhalation BID 08/03/23 10/08/23 mcg/actuation HFA aerosol inhaler (Flovent HFA) montelukast 10 mg tablet 10 mg PO DAILY 08/03/23 10/08/23 omeprazole 20 mg capsule,delayed 20 mg PO BID 08/03/23 10/08/23 release zolpidem 5 mg tablet 5 mg PO BEDTIME PRN Insomnia 08/03/23 10/08/23 apixaban 5 mg tablet (Eliquis) 5 mg PO BID 10/08/23 10/08/23 Allergies Allergy/AdvReac Type Severity Reaction Status Date / Time cephalexin [From Keflex] Allergy Severe HIVES Verified 08/15/23 19:19 clindamycin [Clindamycin] Allergy Severe HIVES Verified 08/15/23 19:19 doxycycline [Doxycycline] Allergy Severe HIVES Verified 08/15/23 19:19 erythromycin base Allergy Severe HIVES Verified 08/15/23 19:20 [Erythromycin Base] levofloxacin [From Levaquin] Allergy Severe THROAT Verified 08/15/23 19:19 TIGHTENS nitrofurantoin Allergy Severe HIVES Verified 08/15/23 19:19 [From Macrobid] Penicillins Allergy Severe HIVES Verified 08/15/23 19:19 aspirin Allergy Unknown Hives Verified 08/15/23 19:19 linezolid [From ZYVOX] Allergy Unknown UNKNOWN Verified 08/15/23 19:19 Sulfa (Sulfonamide Allergy Unknown HIVES Verified 08/15/23 19:19 Antibiotics) [SULFA (SULFONAMIDE ANTIBIOTICS)] sulfacetamide Allergy Unknown Hives Verified 08/15/23 19:19 Erythromycin Allergy Unknown Hives Uncoded 04/22/23 06:01 seafood/shellfish Allergy Unknown Facial Uncoded 04/22/23 06:01 Swelling Sulfacet-R Allergy Unknown Hives Uncoded 04/22/23 06:01 Review of Systems Review of Systems: Yes all other systems are reviewed and are negative PMFSH Past Medical History Onset Date is defined in the Problem List Problems that require an onset date and time if occurred within 24 hrs of arrival to the ED Aortic Dissection and Rupture; Neurologic impairment; Cardiopulmonary Arrest; Endotracheal Intubation; Insertion or Replacement of Mechanical Circulatory Assist Device Medical History (Updated 10/08/23 @ 23:31 by Justo Fisher MD) JOE (acute kidney injury) Left against medical advice Bacteremia Chronic anemia MRSA cellulitis Asthma Legally blind Social History Social History Household Members: Friend(s) Housing: Homeless Do you presently have visiting nurse or other home services: Yes Unable to assess alcohol history related to: Unknown Alcohol intake: former Patient Tobacco Use Status: Never used Tobacco Smoked in Last 30 Days: No e-Cigarette/Vaping Use: Former Use Second Hand Smoke Exposure: No Use of substances other than those prescribed or required for medical reasons: No Substance Use Type: Former Substance User Advance Directives: No Advance Directives Information Provided: No service: No Physical Exam ED Vital Signs: Vital Signs - 24 hr 10/08/23 16:30 10/08/23 16:57 10/08/23 19:01 Temperature 97.7 F 98.5 F Pulse Rate 112 H 94 Respiratory Rate 18 16 3 L Blood Pressure 108/59 L 124/70 Pulse Oximetry 96 Oxygen Delivery Method Nasal Cannula Oxygen Flow Rate 2 10/08/23 20:00 Temperature 97.8 F Pulse Rate 98 Respiratory Rate 15 Blood Pressure 117/61 Pulse Oximetry 96 Oxygen Delivery Method Nasal Cannula Oxygen Flow Rate 3 BMI result Body Mass Index 25.0 Appearance: Alert. Oriented X3. No acute distress. Eyes: pallor++ enucleated right eye ENT: Pharynx normal. Oral Mucosa moist Neck: Normal inspection. Neck supple. CVS: Normal heart rate and rhythm. Pulses normal. Respiratory: No respiratory distress. Equal air entry bilateral, no wheezing/rales/rhonchi Abdomen: Soft and nontender. Bowel sounds are present, no mass palpable, no CVA tenderness Skin: Skin warm and dry. Coccygeal decubitus+ Extremities:2+ lower extremity edema. No calf tenderness Neuro: Oriented X 3. No motor deficit. Limited extremity movement overall generalized weakness Medications Administered Discontinued Medications Generic Name Dose Route Start Last Admin Trade Name Freq PRN Reason Stop Dose Admin Hydromorphone HCl 0.5 mg 10/08/23 21:43 10/08/23 21:52 Hydromorphone Hcl 0.5 Mg/0.5 Ml Syringe IVPUSH 10/08/23 21:44 0.5 mg ONCE ONE Administration Protocol Sodium Chloride 1,000 mls @ 999 mls/hr 10/08/23 17:30 10/08/23 19:40 Ns IV 10/08/23 18:30 Infused .Q1H1M ONE Infusion Vancomycin HCl 1,000 mg/ 535 mls @ 267.5 mls/hr 10/08/23 18:00 10/08/23 19:38 Vancomycin HCl 750 mg/ Sodium IV 10/08/23 19:59 267.5 mls/hr Chloride ONCE ONE Administration Sodium Chloride 100 mls @ 100 mls/hr 10/08/23 20:02 10/08/23 23:25 Ns IV 10/08/23 21:01 100 mls/hr ONCE ONE Administration Pantoprazole Sodium 80 mg 10/08/23 21:54 10/08/23 22:53 Pantoprazole Sodium 40 Mg/10 Ml Vial IVPUSH 10/08/23 21:55 80 mg ONCE ONE Administration Medical Decision Making Medical Decision Making [facility] Narrative: Patient has significant anemia of no melena or fresh blood in the stool had detailed workup 2 months ago including endoscopies and sigmoidoscopy without any source of bleeding. Will transfuse 2 units of PRBCs started on vancomycin for presumably MRSA bacteremia as a cause of the weakness. Will admit patient to the hospitalist service Differential Diagnosis Differential Diagnoses: The differential diagnosis associated with the presentation includes Generalized weakness/bacteremia/anemia/encephalopathy/deconditioning Admission/Observation Consideration of admission/observation: Escalation of care including admission/observation considered Consult Healthcare Provider Management of the patient was discussed with: Hospitalist Lab Data [facility] Lab Attestation statement: I reviewed the patient's lab results. 10/08/23 19:31 10/08/23 19:31 Labs: Lab Results 10/08/23 10/08/23 10/08/23 Range/Units 19:31 19:34 19:59 WBC 10.6 (4.8-10.8) X10*3/uL RBC 1.68 L D (4.20-5.50) X10*6/uL Hgb 5.3 L* D (12.0-16.0) g/dl Hct 17.3 L* D (37.0-47.0) % MCV 103.0 H (80.0-98.0) fL MCH 31.5 (27.0-33.0) pg MCHC 30.6 L (31.0-35.0) g/dl RDW 17.5 H (11.0-16.0) % Plt Count 66 L D (160-400) X10*3/uL MPV 11.7 (9.4-12.3) fL Immature Gran % (Auto) Cancelled Neut % (Auto) Cancelled Lymph % (Auto) Cancelled [place] % (Auto) Cancelled Eos % (Auto) Cancelled Baso % (Auto) Cancelled Lymph # (Auto) Cancelled [place] # (Auto) Cancelled Eos # (Auto) Cancelled Baso # (Auto) Cancelled Abs Immat Gran (auto) Cancelled Absolute Neuts (auto) Cancelled Absolute Nucleated RBC 0.020 H (0.0-0.012) X10*3/uL Nucleated RBC % (auto) 0.2 (0.0-0.2) /100WBC Neutrophils % (Manual) 83 H (45-73) % Band Neutrophils % 11 H (3-5) % Lymphocytes % (Manual) 6 L (20-40) % Abs Neuts (Manual) 10.0 H (2.0-8.3) X10*3/uL Lymphocytes # (Manual) 0.6 L (1.2-4.9) X10*3/uL Toxic Granulation PRESENT Toxic Vacuolation PRESENT Platelet Estimate DECREASED (NORMAL) Plt Morphology Comment NORMAL RBC Morphology NORMAL PT 22.3 H D (11.1-13.3) SEC INR 1.8 H (0.9-1.1) APTT 33.0 D (26.0-36.4) SEC Sodium 134 L (135-145) mmol/L Potassium 3.5 (3.3-5.1) mmol/L Chloride 104 (96-108) mmol/L Carbon Dioxide 21 L (22-29) mmol/L Anion Gap 13 (12-20) BUN 53 H (9-16) mg/dL Creatinine 1.87 H (0.5-1.4) mg/dL Estim Creat Clear Calc 24.8 Estimated GFR 27 Random Glucose 106 (60-115) mg/dL Lactic Acid 1.8 (0.5-2.0) mmol/L Calcium 7.4 L D (8.4-10.2) mg/dL Total Bilirubin 0.4 (0.0-1.0) mg/dL AST 11 (5-31) U/L ALT 9 (0-31) U/L Alkaline Phosphatase 118 H (39-117) U/L Total Protein 4.9 L (6.5-8.0) g/dL Albumin 1.4 L (3.5-5.0) g/dL Blood Type AB Positive Antibody Screen NEGATIVE Crossmatch See Detail External Record Review External record reviewed: Inpatient record Discharge Plan Discharge Clinical Impression: Acute on chronic anemia, JOE (acute kidney injury), Generalized weakness Patient Disposition: Admitted As Inpatient
--- NOTE | 2023-10-08 18:31 | PC.NURSE ---
Pt is pale, warm and dry. Alert/oriented but falls asleep easily. Old scarring noted to BUE and +4 pitting edema noted to BLE. Pt difficult stick, right sided EJ placed by Dr Armaan MD attempted stick for labs x 2 and unable. Tech attempted and RN x 2. Phlebotomy aware. Fluids infusing through EJ at this time
[2023-10-08] MEDS: 0.9 % Sodium Chloride 1,000 ML 999 ML IV (18:38)
[2023-10-08] MEDS: vancomycin HCL 1,000 MG, vancomycin HCL 750 MG in 0.9 % Sodium Chloride 500 ML 267.5 MG IV (19:38)
[2023-10-08 19:44] LABS: Mean Corpuscular HGB Conc 30.6 g/dl (31.0-35.0); Mean Corpuscular Hemoglobin 31.5 pg (27.0-33.0); Mean Platelet Volume 11.7 fL (9.4-12.3); NRBC Pct Auto 0.2 /100WBC (0.0-0.2); Red Blood Count 1.68 X10*6/uL (4.20-5.50); Red Cell Distribution Width 17.5 % (11.0-16.0); White Blood Count 10.6 X10*3/uL (4.8-10.8)
--- NOTE | 2023-10-08 19:44 | PC.NURSE ---
this rn assumed care of pt @ 1900. pt difficult stick phlebotomy attempted blood draw unsuccessfully. md and reed dipper able to obtain remaining blood work. pt medicated according to nov. pt noted to be drowsy but wakes and answers quests appropriately
[2023-10-08 19:47] LABS: Platelet Count 66 X10*3/uL (160-400)
[2023-10-08 19:49] LABS: Hemoglobin 5.3 g/dl (12.0-16.0)
[2023-10-08 19:50] LABS: Hematocrit 17.3 % (37.0-47.0)
[2023-10-08 19:50] LABS: INTERNATIONAL NORM RATIO 1.8 (0.9-1.1); Prothrombin Time 22.3 SEC (11.1-13.3)
[2023-10-08 19:55] LABS: Lactic Acid 1.8 mmol/L (0.5-2.0)
[2023-10-08 20:00] LABS: Alanine Aminotransferase 9 U/L (0-31); Albumin Level 1.4 g/dL (3.5-5.0); Alkaline Phosphatase 118 U/L (39-117); Anion Gap 13 (12-20); Aspartate Amino Transferase 11 U/L (5-31); Bilirubin Total 0.4 mg/dL (0.0-1.0); Blood Urea Nitrogen 53 mg/dL (9-16); Calcium 7.4 mg/dL (8.4-10.2); Carbon Dioxide 21 mmol/L (22-29); Chloride 104 mmol/L (96-108); Creatinine Clr Calc Pharmacy 24.8; Estimated Glomerular Filt Rate 27; Glucose Random 106 mg/dL (60-115); Potassium 3.5 mmol/L (3.3-5.1); Sodium 134 mmol/L (135-145); Total Protein 4.9 g/dL (6.5-8.0)
[2023-10-08 20:10] LABS: Lymphocytes Absolute Manual 0.6 X10*3/uL (1.2-4.9); Lymphocytes Percent Manual 6 % (20-40); Neutrophils Percent Manual 83 % (45-73)
[2023-10-08 20:11] LABS: Toxic Granulation PRESENT; Toxic Vacuolation PRESENT
--- NOTE | 2023-10-08 20:12 | PHA.MEDREC ---
Addendum entered by Cydney Mora RPh 10/08/23 20:17: Patient reported not getting an IV ABX at home. When asked her last time getting and IV infusion, she reported in the hospital. Original Note: Pharmacy Consult ? Medication Reconciliation Pharmacy has completed the medication reconciliation. Patient recently here in August. Patient slightly confused and difficult to understand. Patient reports she has been told to stop and start elqiuis mutliple times. Patient reported no longer using Spiriva. Patient said she sometimes takes cloanzepam and ambien. Reports it has been a few days since she has taken any of her medications. Is suppose to be on daptomycin until 10/11/23 Cydney Mora, PharmD
[2023-10-08 20:16] LABS: Platelet Estimate DECREASED (NORMAL); Platelet Morphology Comment NORMAL; RBC Morphology NORMAL
[2023-10-08 20:19] LABS: Band Neutrophils Percent 11 % (3-5)
[2023-10-08] MEDS: HYDROmorphone HCl 0.5 MG/0.5 ML SYRINGE IVPUSH (21:52)
--- NOTE | 2023-10-08 21:58 | PM.IMHP ---
History of Present Illness Date of Service: 10/08/23 Chief Complaint: Generalized pain Elli Rivers is a Swedish-speaking woman past medical history significant for COPD on home O2 (2L/min NC), hepatitis C, IV drug use, MRSA abscesses,?C.diff infection, E. coli colitis, osteomyelitis (humerus, clavicle, and scapula) with MSSA bacteremia (June 2023), coccyx chronic ulcer, occlusive bilat DVT, anemia and PUD presents to the emergency department complaining of pain to her extremities and back. She also complains of generalized weakness and inability to urinate. Patient denies any headache, shortness of breath, cough or chest pain. She denied fever or chills. Patient stated she has been using her home meds as well as motrin for pain. She said she has been taking at least 8 pills of motrin over the last few days but was unable to recall the doses. Denied alcohol abuse, tobacco smoking or illicit drug use. Chart review, patient was hospitalized last month with diagnosis of MRSA bacteremia that did not improved with vancomycin and was changed to daptomycin but, unfortunately, patient left AMA. She was also transfused with a total of 3 units of PRBCs due to severe anemia. In the ED, she was found to have normal vital signs and is currently requiring 3L/min of supplemental O2 via NC. Blood workup if his remarkable for anemia of 5.3, INR is elevated 1.8, creatinine is 1.87 (prior 0.66). ED tx: NS 1L/min, vancomycin 1,750 mg IV. Review of Systems Review of Systems: All 12 systems were reviewed and normal except as noted in HPI. [facility] Medical History (Updated 10/08/23 @ 23:18 by Beronica Gallardo MD) JOE (acute kidney injury) Left against medical advice Bacteremia Chronic anemia MRSA cellulitis Asthma Legally blind Social History Household Members: Friend(s) Housing: Homeless Do you presently have visiting nurse or other home services: Yes Unable to assess alcohol history related to: Unknown Alcohol intake: former Patient Tobacco Use Status: Never used Tobacco Smoked in Last 30 Days: No e-Cigarette/Vaping Use: Former Use Second Hand Smoke Exposure: No Use of substances other than those prescribed or required for medical reasons: No Substance Use Type: Former Substance User Advance Directives: No Advance Directives Information Provided: No service: No Meds Allergies Allergy/AdvReac Type Severity Reaction Status Date / Time cephalexin [From Keflex] Allergy Severe HIVES Verified 08/15/23 19:19 clindamycin [Clindamycin] Allergy Severe HIVES Verified 08/15/23 19:19 doxycycline [Doxycycline] Allergy Severe HIVES Verified 08/15/23 19:19 erythromycin base Allergy Severe HIVES Verified 08/15/23 19:20 [Erythromycin Base] levofloxacin [From Levaquin] Allergy Severe THROAT Verified 08/15/23 19:19 TIGHTENS nitrofurantoin Allergy Severe HIVES Verified 08/15/23 19:19 [From Macrobid] Penicillins Allergy Severe HIVES Verified 08/15/23 19:19 aspirin Allergy Unknown Hives Verified 08/15/23 19:19 linezolid [From ZYVOX] Allergy Unknown UNKNOWN Verified 08/15/23 19:19 Sulfa (Sulfonamide Allergy Unknown HIVES Verified 08/15/23 19:19 Antibiotics) [SULFA (SULFONAMIDE ANTIBIOTICS)] sulfacetamide Allergy Unknown Hives Verified 08/15/23 19:19 Erythromycin Allergy Unknown Hives Uncoded 04/22/23 06:01 seafood/shellfish Allergy Unknown Facial Uncoded 04/22/23 06:01 Swelling Sulfacet-R Allergy Unknown Hives Uncoded 04/22/23 06:01 Active Medications: Current Medications Albuterol Sulfate (Albuterol Sulfate (0.083%) 2.5 Mg/3 Ml Vial.Neb) 2.5 mg INHALE Q4H PRN PRN Reason: Shortness Of Breath Or Wheezing Albuterol Sulfate (Albuterol Sulfate 90 Mcg 8 Gm Inhaler) 2 puff INHALE Q4H PRN PRN Reason: Shortness Of Breath Or Wheezing Fluticasone Propionate (Fluticasone Propionate 250 Mcg Blst.W.Dev) 1 puff INHALE RBID GETACHEW Hydromorphone HCl (Hydromorphone Hcl 1 Mg/Ml Syringe) 0.5 mg IVPUSH Q4H PRN; Protocol PRN Reason: Pain, Severe (Pain Scale 7-10) Montelukast Sodium (Montelukast Sodium 10 Mg Tablet) 10 mg PO DAILY GETACHEW Pantoprazole Sodium (Pantoprazole Sodium 40 Mg/10 Ml Vial) 40 mg IVPUSH BID [facility] Sodium Chloride (0.9 % Sodium Chloride Flush 3 Ml Syringe) 3 ml IVFLUSH QSHIFT [facility] Vitamin D (Cholecalciferol (Vitamin D3) 25 Mcg Tablet) 25 mcg PO DAILY [facility] Home Medications Medication Instructions Recorded Confirmed Last Taken Type albuterol sulfate 2.5 mg/3 mL 2.5 mg inhalation Q4H PRN 08/03/23 10/08/23 Unknown History (0.083 %) solution for nebulization Shortness Of Breath Or Wheezing albuterol sulfate 90 mcg/actuation 2 puff inhalation Q4-6H PRN 08/03/23 10/08/23 Unknown History aerosol inhaler Shortness Of Breath Or Wheezing cholecalciferol (vitamin D3) 25 25 mcg PO DAILY 08/03/23 10/08/23 Unknown History mcg (1,000 unit) tablet clonazepam 1 mg tablet 1 mg PO BEDTIME PRN Anxiety 08/03/23 10/08/23 Unknown History ferrous sulfate 325 mg (65 mg 650 mg PO DAILY 08/03/23 10/08/23 Unknown History iron) tablet,delayed release fluticasone propionate 220 1 puff inhalation BID 08/03/23 10/08/23 Unknown History mcg/actuation HFA aerosol inhaler (Flovent HFA) montelukast 10 mg tablet 10 mg PO DAILY 08/03/23 10/08/23 Unknown History omeprazole 20 mg capsule,delayed 20 mg PO BID 08/03/23 10/08/23 Unknown History release zolpidem 5 mg tablet 5 mg PO BEDTIME PRN Insomnia 08/03/23 10/08/23 Unknown History apixaban 5 mg tablet (Eliquis) 5 mg PO BID 10/08/23 10/08/23 Unknown History Physical Exam Vital Signs and Narrative: Vital Signs: Last Vital Signs Temp 97.8 F 10/08/23 20:00 Pulse 98 10/08/23 20:00 Resp 15 10/08/23 20:00 BP 117/61 10/08/23 20:00 Pulse Ox 96 10/08/23 20:00 O2 Del Method Nasal Cannula 10/08/23 20:00 O2 Flow Rate 3 10/08/23 20:00 BMI result Body Mass Index 25.0 Constitutional - Awake and Alert, No apparent distress. Nasal cannula in place. Eyes - EOMI. Cardiovascular - RRR, (+) murmur. Respiratory - Normal lung expansion, Normal respiratory effort, No respiratory distress, CTA bilaterally Gastrointestinal - NT / ND; +BS; No rebound or guarding Extremities - Uneven skin, atrophic. LLE markely edematous > RLE + pitting edema and tenderness. Skin - Warm/Dry. healing ulcer of the coccyx. (+) pallor. Neurological - Alert & oriented x3. Psychological - Depressed affect Results Labs 10/08/23 19:31 10/08/23 19:31 Labs: Laboratory Results - last 24 hr 10/08/23 10/08/23 10/08/23 19:31 19:34 19:59 MCV 103.0 H MCH 31.5 MCHC 30.6 L RDW 17.5 H Plt Count 66 L D MPV 11.7 Immature Gran % (Auto) Cancelled Neut % (Auto) Cancelled Lymph % (Auto) Cancelled [place] % (Auto) Cancelled Eos % (Auto) Cancelled Baso % (Auto) Cancelled Lymph # (Auto) Cancelled [place] # (Auto) Cancelled Eos # (Auto) Cancelled Baso # (Auto) Cancelled Abs Immat Gran (auto) Cancelled Absolute Neuts (auto) Cancelled Absolute Nucleated RBC 0.020 H Nucleated RBC % (auto) 0.2 Neutrophils % (Manual) 83 H Band Neutrophils % 11 H Lymphocytes % (Manual) 6 L Abs Neuts (Manual) 10.0 H Lymphocytes # (Manual) 0.6 L Toxic Granulation PRESENT Toxic Vacuolation PRESENT Platelet Estimate DECREASED Plt Morphology Comment NORMAL RBC Morphology NORMAL PT 22.3 H D INR 1.8 H APTT 33.0 D Anion Gap 13 Estim Creat Clear Calc 24.8 Estimated GFR 27 Random Glucose 106 Lactic Acid 1.8 Calcium 7.4 L D Total Bilirubin 0.4 AST 11 ALT 9 Alkaline Phosphatase 118 H Total Protein 4.9 L Albumin 1.4 L Blood Type AB Positive Antibody Screen NEGATIVE Crossmatch See Detail Assessment and Plan (1) Anemia: Qualifiers: Anemia type: other cause Other causes of anemia: chronic disease, other Qualified Code(s): D63.8 - Anemia in other chronic diseases classified elsewhere Status: Acute (2) JOE (acute kidney injury): Status: Acute Plan Elli Rivers is a Swedish-speaking woman past medical history significant for COPD on home O2 (2L/min NC), hepatitis C, IV drug use, MRSA abscesses,?C.diff infection, E. coli colitis, osteomyelitis (humerus, clavicle, and scapula) with MSSA bacteremia (June 2023), coccyx chronic ulcer, occlusive bilat DVT, anemia and PUD 1. Symptomatic anemia, suspecting GI blood loss. Patient has PUD and has been taking multiple doses of motrin daily for the last few days. She also takes Eliquis. Admit to hospitalist service. Keep NPO for now. According to previous notes pt has been refusing endoscopies. Start tx with Protonix 80 mg IV now then 40 mg IV bid. Avoid NSAIDs. Eliquis on hold. Will transfuse 2 units of PRBCs. Continue to monitor Hgb. 2. Acute kidney injury. Likely secondary to #1 and use of NSAIDs. Continue PRBC transfusion on IV fluids. Continue to monitor renal function. Avoid nephrotoxic agents. 3. Generalized pain, chronic. Dilaudid IV as needed. 4. Chronic obstructive pulmonary disease, not exacerbation. Continue supplemental oxygen to keep oxygen saturation above 90%. Bronchodilator therapy as needed. Continue montelukast when able. 5. Recent hospitalization secondary to MRSA bacteremia. Patient left AMA and IV abx tx was not completed. Received vancomycin IV in the emergency department today. Blood cultures were obtained-will follow blood cultures results before continuing IV antibiotic therapy. 6. Bilateral occlusive deep venous thrombosis. Eliquis on hold. IVC filter was not considered during prior hospitalization by vascular surgery as the patient was having an active infection. 7. History of osteomyelitis (humerus, clavicle and scapula). Check CRP. 8. Chronic decubitus ulcer, coccyx. Healing. 9. History of hepatitic C. 10. History of IVDU. Patient quit using IV drugs. VTE prophylaxis: Pharmacological therapy is contraindicated due to concern of active GI bleeding. Patient will not tolerate SCDs due to lower extremities pain. Also, patient is already known to have bilateral DVT to the lower extremities that might required IVC filter implantation if indicated. Code Status: Full. Patient will require hospitalization for at least 2 midnights. Quality Stroke Does the patient have a stroke diagnosis?: No VTE Prior VTE?: Yes VTE Risk Level:: Medical - moderate - high VTE Device Contraindication: Procedure Contraindicated VTE Drug Contraindication: Treatment Not Indicated
--- NOTE | 2023-10-08 22:15 | PC.NURSE ---
this rn to bedside to change bedlinens and place sraight catheter after pt stated to md that was unable to void. periwick previously in place , pt noted to be incontinent of urine with urine in perwick canister. pt states no longer feels need to void. this rn made dr hansa wolff aware straight catheter not placed. okay with this
[2023-10-08] MEDS: Pantoprazole Sodium 40 MG/10 ML VIAL 80 MG IVPUSH (22:53)
--- NOTE | 2023-10-08 23:15 | PC.NURSE ---
blood transfusion initiated utilizing ej iv placed by dr hernandez. this rn discussed with ed md and admitting doctor regarding 2 units of blood orders with only one line of iv access. per both ed md and admitting md central line and additional line not appropriate. transmitter engineer in charge and clinical coordinator made aware
--- NOTE | 2023-10-08 23:30 | PC.NURSE ---
first unit of PRBC infusing, this rn remained at bedside for first 15 minutes. vss. no s/s noted of infusion reaction. pt denies sob or chest pain. pt reports continued pain throughout R arm that has been present x 5 days. this rn made dr hansa wolff aware awaiting new orders
[2023-10-09] VITALS (17 sets, daily range): BP systolic 99–146; BP diastolic 51–84; PULSE 99–113; RESP 16–20; TEMP 36.3–37.1; O2SAT 95–100
[2023-10-09] MEDS: HYDROmorphone HCl 1 MG/ML SYRINGE IM ×2 (00:23→05:28)
--- NOTE | 2023-10-09 03:44 | PC.NURSE ---
2nd unit of PRBC transfusion initiated. this rn remained at bedside for first 15 minutes of transfusion. pt tolerating well. no s/s of transfusion reaction. pt denies chest pain and sob
[2023-10-09 06:36] LABS: Hematocrit 24.7 % (37.0-47.0); Hemoglobin 7.9 g/dl (12.0-16.0); Mean Platelet Volume 11.9 fL (9.4-12.3); NRBC Pct Auto 0.3 /100WBC (0.0-0.2); Red Blood Count 2.47 X10*6/uL (4.20-5.50); Red Cell Distribution Width 17.3 % (11.0-16.0)
[2023-10-09 06:40] LABS: Platelet Count 67 X10*3/uL (160-400)
[2023-10-09 06:49] LABS: Alanine Aminotransferase 9 U/L (0-31); Albumin Level 1.5 g/dL (3.5-5.0); Alkaline Phosphatase 123 U/L (39-117); Anion Gap 10 (12-20); Aspartate Amino Transferase 12 U/L (5-31); Bilirubin Total 2.4 mg/dL (0.0-1.0); Blood Urea Nitrogen 49 mg/dL (9-16); Calcium 7.7 mg/dL (8.4-10.2); Carbon Dioxide 26 mmol/L (22-29); Chloride 107 mmol/L (96-108); Creatinine Clr Calc Pharmacy 30.3; Estimated Glomerular Filt Rate 33; Glucose Random 100 mg/dL (60-115); Magnesium 1.7 mg/dL (1.6-2.6); Potassium 3.3 mmol/L (3.3-5.1); Sodium 140 mmol/L (135-145); Total Protein 5.2 g/dL (6.5-8.0)
[2023-10-09 07:10] LABS: Band Neutrophils Percent 13 % (3-5); Lymphocytes Absolute Manual 0.6 X10*3/uL (1.2-4.9); Lymphocytes Percent Manual 4 % (20-40); Monocytes Absolute Manual 0.5 X10*3/uL (0.1-1.2); Monocytes Percent Manual 3 % (2-11); Neutrophils Percent Manual 80 % (45-73)
[2023-10-09 07:11] LABS: Hypochromasia 1+ (5-14) /OIF; Macrocytosis 1+ (5-14) /OIF; RBC Morphology NOTED
[2023-10-09 07:13] LABS: Dohle Bodies PRESENT
[2023-10-09 07:14] LABS: Large Platelet PRESENT; Platelet Estimate DECREASED (NORMAL); Platelet Morphology Comment NOTED; Toxic Vacuolation PRESENT
[2023-10-09 07:26] LABS: Folate 6.8 ng/mL (> or = 4.0); Vitamin B12 > 2000 pg/mL (200-900)
--- NOTE | 2023-10-09 07:58 | PHA.PROG ---
Admission Date/Time: October 08, 2023 21:48 Indication: Bacteremia Weight in k kg Adjusted body weight in K [employer] body weight in K.4 Obesity Dosing Indication % IBW: Serum Creatinine - Last 168 Hours 10/08/23 10/09/23 19:31 06:16 Creatinine 1.87 H 1.53 H Estimated CrCl and GFR - Last 168 Hours 10/08/23 10/09/23 19:31 06:16 Estim Creat Clear Calc 24.8 30.3 Estimated GFR 27 33 Vancomycin Loading Dose: 1500 mg Current Vancomycin Dosing Regimen:750 mg Q24H Vancomycin Monitoring using AUC goal of 400 - 600 range with trough as surrogate marker: 449 mg/L/hr Date and Time for next Vancomycin Level to be drawn: 10/11 @1700 Pharmacist Comments on Vancomycin Plan: Vancomycin dosing will take advantage of [employer] as a clinical decision support tool that uses Bayesian modeling to calculate individual patient's pharmacokinetic parameters and forecast the patient's drug concentration time course with the target goal AUC 24 range of 400 - 600 mg/L/hr.
[2023-10-09] MEDS: 0.9 % Sodium Chloride Flush 3 ML SYRINGE IVFLUSH ×3 (08:28→19:50)
[2023-10-09] MEDS: Pantoprazole Sodium 40 MG/10 ML VIAL IVPUSH ×2 (08:29→19:50)
[2023-10-09] MEDS: Cholecalciferol (Vitamin D3) 25 MCG TABLET PO (08:29)
[2023-10-09] MEDS: Montelukast Sodium 10 MG TABLET PO (08:29)
[2023-10-09] MEDS: HYDROmorphone HCl 1 MG/ML SYRINGE 0.5 MG IVPUSH ×3 (08:36→19:48)
--- NOTE | 2023-10-09 08:56 | PC.NURSE ---
Incont care provided, turned and repositioned, abrasion noted on right elbow that patient says she has had for days. Area cleansed, dried, and dry clean dressing applied
[2023-10-09] MEDS: Fluticasone Propionate 250 MCG BLST.W.DEV 1 PUFF INHALE (09:13)
--- NOTE | 2023-10-09 10:03 | P.CNGI_ITS ---
History of Present Illness Data of Consult Service Date: 10/09/23 Primary Care Provider: Unknown Physician HPI Reason for consult: anemia 73 yr old f with history of COPD on home O2 (2L/min NC), hepatitis C, IV drug use, MRSA abscesses,?C.diff infection, E. coli colitis, osteomyelitis (humerus, clavicle, and scapula) with MSSA bacteremia (June 2023), coccyx chronic ulcer, occlusive bilat DVT, anemia and PUD who I am seeing for assessment for anemia. Patient initially presented to the emergency department complaining of generalized body pain to her extremities and back associated with generalized weakness and inability to urinate. She has been taking motrin daily for several days. Denies alcohol abuse, tobacco smoking or illicit drug use. Of note patient was hospitalized last month with diagnosis of MRSA bacteremia that did not improved with vancomycin and was changed to daptomycin but, unfortunately, patient left AMA. She was also transfused with a total of 3 units of PRBCs due to severe anemia. Labs: HGB 5.3 (was 9 g/dl 09/22), INR is elevated 1.8, creatinine is 1.87 (prior 0.66). blood cultures pos for GPC She did have EGD and sigmoidoscopy for acute blood loss anemia and these revealed non bleeding stomach ulcers and multiple sigmoid ulcers as well. Review of Systems 2 Review of Systems: Constitutional : No Weight loss, No Fever, No Chills ENT/Mouth : No sore throat, No Rhinorrhea Eyes: No Swelling, No Redness Cardiovascular : No Chest Pain, No SOB, No Edema Respiratory : No Cough, No Sputum, No Wheezing Gastrointestinal : see HPI Genitourinary : NO Dysuria, No Urinary Frequency, No Hematuria, No Urgency Musculoskeletal : No joint pain, No Myalgias, No Joint Swelling Skin : No Skin Lesions, No rash Neuro : + Weakness, No Numbness, No Dizziness, No Headache Psych : No Anxiety/Panic, No Depression Heme/Lymph: No Bruising, No Lymphadenopathy Endocrine : No Polyuria, No Polydipsia All other systems reviewed and are negative. [facility] Past Medical History Medical History (Updated 10/09/23 @ 05:27 by Beronica Gallardo MD) JOE (acute kidney injury) Left against medical advice Bacteremia Chronic anemia MRSA cellulitis Asthma Legally blind Family History Pertinent family history: denies FH of PUD, CRC Social History Social History Household Members: Family and Friend(s) Housing: Apartment Do you presently have visiting nurse or other home services: Yes Unable to assess alcohol history related to: Unknown Alcohol intake: former Patient Tobacco Use Status: Never used Tobacco e-Cigarette/Vaping Use: Former Use Second Hand Smoke Exposure: No Substance Use Type: Heroin service: No Meds Allergies Allergy/AdvReac Type Severity Reaction Status Date / Time cephalexin [From Keflex] Allergy Severe HIVES Verified 08/15/23 19:19 clindamycin [Clindamycin] Allergy Severe HIVES Verified 08/15/23 19:19 doxycycline [Doxycycline] Allergy Severe HIVES Verified 08/15/23 19:19 erythromycin base Allergy Severe HIVES Verified 08/15/23 19:20 [Erythromycin Base] levofloxacin [From Levaquin] Allergy Severe THROAT Verified 08/15/23 19:19 TIGHTENS nitrofurantoin Allergy Severe HIVES Verified 08/15/23 19:19 [From Macrobid] Penicillins Allergy Severe HIVES Verified 08/15/23 19:19 aspirin Allergy Unknown Hives Verified 08/15/23 19:19 linezolid [From ZYVOX] Allergy Unknown UNKNOWN Verified 08/15/23 19:19 Sulfa (Sulfonamide Allergy Unknown HIVES Verified 08/15/23 19:19 Antibiotics) [SULFA (SULFONAMIDE ANTIBIOTICS)] sulfacetamide Allergy Unknown Hives Verified 08/15/23 19:19 Erythromycin Allergy Unknown Hives Uncoded 04/22/23 06:01 seafood/shellfish Allergy Unknown Facial Uncoded 04/22/23 06:01 Swelling Sulfacet-R Allergy Unknown Hives Uncoded 04/22/23 06:01 Active Medications: Current Medications Albuterol Sulfate (Albuterol Sulfate (0.083%) 2.5 Mg/3 Ml Vial.Neb) 2.5 mg INHALE Q4H PRN PRN Reason: Shortness Of Breath Or Wheezing Albuterol Sulfate (Albuterol Sulfate 90 Mcg 8 Gm Inhaler) 2 puff INHALE Q4H PRN PRN Reason: Shortness Of Breath Or Wheezing Fluticasone Propionate (Fluticasone Propionate 250 Mcg Blst.W.Dev) 1 puff INHALE RBID [facility] Last Admin: 10/09/23 09:13 Dose: 1 puff Hydromorphone HCl (Hydromorphone Hcl 1 Mg/Ml Syringe) 0.5 mg IVPUSH Q4H PRN; Protocol PRN Reason: Pain, Severe (Pain Scale 7-10) Last Admin: 10/09/23 08:36 Dose: 0.5 mg Vancomycin HCl 750 mg/ Sodium (Chloride) 265 mls @ 265 mls/hr IV Q24H [facility] Montelukast Sodium (Montelukast Sodium 10 Mg Tablet) 10 mg PO DAILY [facility] Last Admin: 10/09/23 08:29 Dose: 10 mg Pantoprazole Sodium (Pantoprazole Sodium 40 Mg/10 Ml Vial) 40 mg IVPUSH BID [facility] Last Admin: 10/09/23 08:29 Dose: 40 mg Pharmacy Consult (Consult Rx Vancomycin Dosing) 1 each MISCELLANE DAILY PRN PRN Reason: Consult order Sodium Chloride (0.9 % Sodium Chloride Flush 3 Ml Syringe) 3 ml IVFLUSH QSHIFT [facility] Last Admin: 10/09/23 08:28 Dose: 3 ml Vitamin D (Cholecalciferol (Vitamin D3) 25 Mcg Tablet) 25 mcg PO DAILY [facility] Last Admin: 10/09/23 08:29 Dose: 25 mcg Home Medications Medication Instructions Recorded Confirmed Last Taken Type albuterol sulfate 2.5 mg/3 mL 2.5 mg inhalation Q4H PRN 08/03/23 10/08/23 Unknown History (0.083 %) solution for nebulization Shortness Of Breath Or Wheezing albuterol sulfate 90 mcg/actuation 2 puff inhalation Q4-6H PRN 08/03/23 10/08/23 Unknown History aerosol inhaler Shortness Of Breath Or Wheezing cholecalciferol (vitamin D3) 25 25 mcg PO DAILY 08/03/23 10/08/23 Unknown History mcg (1,000 unit) tablet clonazepam 1 mg tablet 1 mg PO BEDTIME PRN Anxiety 08/03/23 10/08/23 Unknown History ferrous sulfate 325 mg (65 mg 650 mg PO DAILY 08/03/23 10/08/23 Unknown History iron) tablet,delayed release fluticasone propionate 220 1 puff inhalation BID 08/03/23 10/08/23 Unknown History mcg/actuation HFA aerosol inhaler (Flovent HFA) montelukast 10 mg tablet 10 mg PO DAILY 08/03/23 10/08/23 Unknown History omeprazole 20 mg capsule,delayed 20 mg PO BID 08/03/23 10/08/23 Unknown History release zolpidem 5 mg tablet 5 mg PO BEDTIME PRN Insomnia 08/03/23 10/08/23 Unknown History apixaban 5 mg tablet (Eliquis) 5 mg PO BID 10/08/23 10/08/23 Unknown History Physical Exam 2 Vital Signs: Vital Signs: Last Vital Signs Temp 98 F 10/09/23 08:30 Pulse 110 H 10/09/23 09:13 Resp 20 10/09/23 09:13 BP 109/64 10/09/23 08:30 Pulse Ox 100 10/09/23 04:36 O2 Del Method Room Air 10/09/23 04:36 O2 Flow Rate 3 10/08/23 22:48 BMI result Body Mass Index 25.0 EXAM: GENERAL: The patient is frail and ill appearing VITAL SIGNS:see workflow HEENT: Nonicteric sclerae, PERRLA, EOMI. Oropharynx clear. Moist mucous membranes. Conjunctivae appear pale. No thyroid mass. CHEST: Chest wall is nontender. HEART: Regular rate and rhythm without murmurs. LUNGS: Clear to auscultation bilaterally. ABDOMEN: Soft, positive bowel sounds, nontender, no organomegaly.no flank tenderness SKIN: scarred skin on arms, swollen legs NEUROLOGIC: Cranial nerves II-XII intact without motor/sensory deficit. Results Labs 10/09/23 06:16 10/09/23 06:16 Labs: Short CBC 10/08/23 10/09/23 Range/Units 19:31 06:16 WBC 10.6 15.0 H (4.8-10.8) X10*3/uL Hgb 5.3 L* D 7.9 L D (12.0-16.0) g/dl Hct 17.3 L* D 24.7 L D (37.0-47.0) % Plt Count 66 L D 67 L (160-400) X10*3/uL BMP 10/08/23 10/09/23 19:31 06:16 Sodium 134 L 140 Potassium 3.5 3.3 Chloride 104 107 Carbon Dioxide 21 L 26 BUN 53 H 49 H Creatinine 1.87 H 1.53 H Calcium 7.4 L D 7.7 L Liver Function 10/08/23 10/09/23 Range/Units 19:31 06:16 Total Bilirubin 0.4 2.4 H (0.0-1.0) mg/dL AST 11 12 (5-31) U/L ALT 9 9 (0-31) U/L Alkaline Phosphatase 118 H 123 H (39-117) U/L Albumin 1.4 L 1.5 L (3.5-5.0) g/dL Microbiology Microbiology Results: Microbiology 10/08/23 18:05 Blood - Venous Blood Culture - Preliminary Prelim: GPC Gram Stain only 10/08/23 19:31 Blood - Venous Blood Culture - Preliminary Prelim: GPC Gram Stain only Assessment and Plan (1) Bacteremia due to Gram-positive bacteria: Status: Acute (2) Acute on chronic anemia: Status: Chronic Plan 1/ Acute on chronci anemia with low plts and GPC bactermia - may have bone marrow suppresion from sepsis, and gastritis from nsaid use. Patient is very frail appearing and just had endoscopy not long ago with gastric uclerations noted. PLAN: 1/ Hold on EGD and colonoscopy for the meantime given her fraility and bactermia, 2/ Treat with PPi high dose BID, if HG stable over next 24-48 hr then can recommence eliquis 3/ If overt GI bleeding or worsening anemia then can revisti EGD, possible colonoscopy Procedures Date of Service Date of Service: 10/09/23
--- NOTE | 2023-10-09 11:47 | MHC.CM.PN ---
IMM 10/09/23 with pt verbally, she said she could not sign due to pain in her arms. Pt lives with her friend, she has [employer] services, she could not say from which agency. She has home O2. She was not able to say how she would get home. PCP Karla Haas, HCP on file, confirmed, Aimeebradley Sr, a friend. CM to follow and assist with DC planning.
--- NOTE | 2023-10-09 12:50 | PC.NURSE ---
Alert and oriented, po fluids given per provider.
[2023-10-09 13:29] LABS: COVID-19 Test Invalid (Negative); IDNOW Serial# 08D9AD1C
--- NOTE | 2023-10-09 15:02 | P.PNIM_ITS ---
Subjective Subjective Date of Service: 10/09/23 Interval History: gram positive bacteremia and anemia Review of Systems seems similar Physical Exam 2 Vital Signs: Vital Signs: Last Vital Signs Temp 97.6 F 10/09/23 13:33 Pulse 108 H 10/09/23 13:33 Resp 18 10/09/23 13:33 BP 131/63 10/09/23 13:33 Pulse Ox 97 10/09/23 13:33 O2 Del Method Nasal Cannula 10/09/23 13:33 O2 Flow Rate 2 10/09/23 13:33 BMI result Body Mass Index 25.0 Appearance: Alert.? Oriented,no apparent distress. cvs: rrr, [id number] . res: clear to auscultation ,no rhonchii or wheezing. abd: no rebound or guarding ,nt, bs present. ext pulses present , no cyanosis. neuro: axo3 , nonfocal. Objective Data Active Medications Albuterol Sulfate (Albuterol Sulfate (0.083%) 2.5 Mg/3 Ml Vial.Neb) 2.5 mg INHALE Q4H PRN PRN Reason: Shortness Of Breath Or Wheezing Albuterol Sulfate (Albuterol Sulfate 90 Mcg 8 Gm Inhaler) 2 puff INHALE Q4H PRN PRN Reason: Shortness Of Breath Or Wheezing Fluticasone Propionate (Fluticasone Propionate 250 Mcg Blst.W.Dev) 1 puff INHALE RBID [facility] Last Admin: 10/09/23 09:13 Dose: 1 puff Documented By: DELMER Hydromorphone HCl (Hydromorphone Hcl 1 Mg/Ml Syringe) 0.5 mg IVPUSH Q4H PRN; Protocol PRN Reason: Pain, Severe (Pain Scale 7-10) Last Admin: 10/09/23 08:36 Dose: 0.5 mg Documented By: LADAN Vancomycin HCl 750 mg/ Sodium (Chloride) 265 mls @ 265 mls/hr IV Q24H [facility] Montelukast Sodium (Montelukast Sodium 10 Mg Tablet) 10 mg PO DAILY [facility] Last Admin: 10/09/23 08:29 Dose: 10 mg Documented By: LADAN Pantoprazole Sodium (Pantoprazole Sodium 40 Mg/10 Ml Vial) 40 mg IVPUSH BID [facility] Last Admin: 01/09/24 08:29 Dose: 40 mg Documented By: LADAN Pharmacy Consult (Consult Rx Vancomycin Dosing) 1 each MISCELLANE DAILY PRN PRN Reason: Consult order Sodium Chloride (0.9 % Sodium Chloride Flush 3 Ml Syringe) 3 ml IVFLUSH QSHIFT [facility] Last Admin: 10/09/23 08:28 Dose: 3 ml Documented By: LADAN Vitamin D (Cholecalciferol (Vitamin D3) 25 Mcg Tablet) 25 mcg PO DAILY [facility] Last Admin: 10/09/23 08:29 Dose: 25 mcg Documented By: LADAN Labs 10/09/23 06:16 10/09/23 06:16 Labs: Laboratory Results - last 24 hr 10/08/23 10/08/23 10/08/23 19:31 19:34 19:59 MCV 103.0 H MCH 31.5 MCHC 30.6 L RDW 17.5 H Plt Count 66 L D MPV 11.7 Immature Gran % (Auto) Cancelled Neut % (Auto) Cancelled Lymph % (Auto) Cancelled [place]er % (Auto) Cancelled Eos % (Auto) Cancelled Baso % (Auto) Cancelled Lymph # (Auto) Cancelled [place]er # (Auto) Cancelled Eos # (Auto) Cancelled Baso # (Auto) Cancelled Abs Immat Gran (auto) Cancelled Absolute Neuts (auto) Cancelled Absolute Nucleated RBC 0.020 H Nucleated RBC % (auto) 0.2 Neutrophils % (Manual) 83 H Band Neutrophils % 11 H Lymphocytes % (Manual) 6 L Monocytes % (Manual) Abs Neuts (Manual) 10.0 H Lymphocytes # (Manual) 0.6 L Monocytes # (Manual) Toxic Granulation PRESENT Toxic Vacuolation PRESENT Dohle Bodies Platelet Estimate DECREASED Large Platelets Plt Morphology Comment NORMAL RBC Morphology NORMAL Hypochromasia Macrocytosis PT 22.3 H D INR 1.8 H APTT 33.0 D Anion Gap 13 Estim Creat Clear Calc 24.8 Estimated GFR 27 Random Glucose 106 Lactic Acid 1.8 Calcium 7.4 L D Magnesium Total Bilirubin 0.4 AST 11 ALT 9 Alkaline Phosphatase 118 H Total Protein 4.9 L Albumin 1.4 L Vitamin B12 Folate COVID-19 ([facility]KIE) COVID-19 Clin Com Blood Type AB Positive Antibody Screen NEGATIVE Crossmatch See Detail 10/09/23 10/09/23 06:16 12:35 MCV 100.0 H MCH 32.0 MCHC 32.0 RDW 17.3 H Plt Count 67 L MPV 11.9 Immature Gran % (Auto) Cancelled Neut % (Auto) Cancelled Lymph % (Auto) Cancelled [place]agoner % (Auto) Cancelled Eos % (Auto) Cancelled Baso % (Auto) Cancelled Lymph # (Auto) Cancelled [place]er # (Auto) Cancelled Eos # (Auto) Cancelled Baso # (Auto) Cancelled Abs Immat Gran (auto) Cancelled Absolute Neuts (auto) Cancelled Absolute Nucleated RBC 0.040 H Nucleated RBC % (auto) 0.3 H Neutrophils % (Manual) 80 H Band Neutrophils % 13 H Lymphocytes % (Manual) 4 L Monocytes % (Manual) 3 Abs Neuts (Manual) 14.0 H Lymphocytes # (Manual) 0.6 L Monocytes # (Manual) 0.5 Toxic Granulation Toxic Vacuolation PRESENT Dohle Bodies PRESENT Platelet Estimate DECREASED Large Platelets PRESENT Plt Morphology Comment NOTED RBC Morphology NOTED Hypochromasia 1+ (5-14) Macrocytosis 1+ (5-14) PT INR APTT Anion Gap 10 L Estim Creat Clear Calc 30.3 Estimated GFR 33 Random Glucose 100 Lactic Acid Calcium 7.7 L Magnesium 1.7 Total Bilirubin 2.4 H AST 12 ALT 9 Alkaline Phosphatase 123 H Total Protein 5.2 L Albumin 1.5 L Vitamin B12 > 2000 H Folate 6.8 COVID-19 (MIKIE) Invalid COVID-19 Clin Com See Note Blood Type Antibody Screen Crossmatch Microbiology Microbiology Results: Microbiology 10/08/23 18:05 Blood Culture - Preliminary Blood - Venous Prelim: GPC Gram Stain only 10/08/23 19:31 Blood Culture - Preliminary Blood - Venous Prelim: GPC Gram Stain only Assessment and Plan (1) Bacteremia due to Gram-positive bacteria: Status: Acute (2) Anemia: Status: Acute Plan 73 y/o F with COPD on home O2 (2L/min NC), hepatitis C, IV drug use, MRSA abscesses,?C.diff infection, E. coli colitis, osteomyelitis (humerus, clavicle, and scapula) with MSSA bacteremia (June 2023), coccyx chronic ulcer, occlusive bilat DVT, anemia and PUD. Symptomatic anemia, suspecting GI blood loss. Patient has PUD and has been taking multiple doses of motrin daily for the last few days. She also takes Eliquis. Keep NPO for now. According to previous notes pt has been refusing endoscopies. h/h:7.9/24.7 s/p 2 prbc. Start tx with Protonix 80 mg IV now then 40 mg IV bid. Avoid NSAIDs. Eliquis on hold. Gi eval. Acute kidney injury. Likely secondary to #1 and use of NSAIDs. Continue PRBC transfusion on IV fluids. Continue to monitor renal function. Avoid nephrotoxic agents. Generalized pain, chronic. Dilaudid IV as needed. Chronic obstructive pulmonary disease, not exacerbation. Continue supplemental oxygen to keep oxygen saturation above 90%, nebs prn, Continue montelukast . Gram positive bacteremia : Recent hospitalization secondary to MRSA bacteremia. Patient left AMA and IV abx tx was not completed. Received vancomycin IV in the emergency department today. Blood cultures were obtained-will follow blood cultures results before continuing IV antibiotic therapy. Bilateral occlusive deep venous thrombosis. Eliquis on hold. IVC filter was not considered during prior hospitalization by vascular surgery as the patient was having an active infection. placed vascular consult. History of osteomyelitis (humerus, clavicle and scapula). Check CRP. Chronic decubitus ulcer, coccyx. Healing: added wound care consult. History of hepatitic C. : mild elevated bilirubin in steting of hepatitic C. History of IVDU. Patient quit using IV drugs. Ongoing hospitlisation need : bacteremia -need Iv vanco ,renal function/electrolytes monitering ,symptomatic anemia -need 2prbc -need h/h monitering . Quality Stroke Does the patient have a stroke diagnosis?: No VTE Prior VTE?: Yes VTE Risk Level:: Medical - moderate - high VTE Device Contraindication: Procedure Contraindicated VTE Drug Contraindication: Treatment Not Indicated
[2023-10-09 16:18] LABS: COVID-19 Test Invalid (Negative); IDNOW Serial# 08D9AD1C
[2023-10-09 17:13] LABS: COVID-19 Test Negative (Negative); IDNOW Serial# 58CA691E
[2023-10-09] MEDS: vancomycin HCL 750 MG in 0.9 % Sodium Chloride 250 ML 265 MG IV (18:20)
[2023-10-09] MEDS: Acetaminophen 325 MG TABLET 975 MG PO (22:00)
[2023-10-09] MEDS: traMADoL HCL 50 MG TABLET PO (22:01)
[2023-10-10] VITALS (7 sets, daily range): BP systolic 109–139; BP diastolic 56–71; PULSE 92–108; RESP 18–20; TEMP 36.3–37.1; O2SAT 94–97; BMI 25.0
[2023-10-10] MEDS: HYDROmorphone HCl 1 MG/ML SYRINGE 0.5 MG IVPUSH ×4 (00:16→22:25)
[2023-10-10] MEDS: traMADoL HCL 50 MG TABLET PO ×3 (04:01→20:02)
[2023-10-10] MEDS: Acetaminophen 325 MG TABLET 975 MG PO ×2 (04:01→11:35)
[2023-10-10 07:40] LABS: Hematocrit 22.6 % (37.0-47.0); Hemoglobin 7.5 g/dl (12.0-16.0); Mean Corpuscular HGB Conc 33.2 g/dl (31.0-35.0); Mean Corpuscular Hemoglobin 32.5 pg (27.0-33.0); Mean Corpuscular Volume 97.8 fL (80.0-98.0); Mean Platelet Volume 12.8 fL (9.4-12.3); NRBC Pct Auto 0.1 /100WBC (0.0-0.2); Platelet Count 40 X10*3/uL (160-400); Red Blood Count 2.31 X10*6/uL (4.20-5.50); Red Cell Distribution Width 18.2 % (11.0-16.0)
[2023-10-10 07:42] LABS: Anion Gap 12 (12-20); Blood Urea Nitrogen 40 mg/dL (9-16); Calcium 7.8 mg/dL (8.4-10.2); Carbon Dioxide 23 mmol/L (22-29); Chloride 110 mmol/L (96-108); Estimated Glomerular Filt Rate 54; Glucose Random 72 mg/dL (60-115); Potassium 3.6 mmol/L (3.3-5.1); Sodium 141 mmol/L (135-145)
[2023-10-10] MEDS: Cholecalciferol (Vitamin D3) 25 MCG TABLET PO (08:05)
[2023-10-10] MEDS: Montelukast Sodium 10 MG TABLET PO (08:05)
[2023-10-10] MEDS: 0.9 % Sodium Chloride Flush 3 ML SYRINGE IVFLUSH ×2 (08:05→20:04)
[2023-10-10] MEDS: Pantoprazole Sodium 40 MG/10 ML VIAL IVPUSH ×2 (08:05→20:04)
[2023-10-10] MEDS: Fluticasone Propionate 250 MCG BLST.W.DEV 1 PUFF INHALE (08:13)
--- NOTE | 2023-10-10 08:28 | HE.PHANOTE ---
RE: darshan PAtient's renal function improving, increased dose to 1000mg Q24H with predicted AUC of 431 mg/L, trough of 12.6. Level kept at same schedule to be drawn 10/11 @1700
[2023-10-10 08:48] LABS: Amphetamine Screen Urine Not Detected (Not Detect); Barbiturates, Urine Not Detected (Not Detect); Benzodiazepines Screen Urine Not Detected (Not Detect); Cannabinoid Screen Urine Not Detected (Not Detect); Cocaine Screen Urine POSITIVE (Not Detect); Fentanyl, urine POSITIVE (Not Detect); Opiate Screen Urine POSITIVE (Not Detect); Phencyclidine Screen Urine Not Detected (Not Detect)
--- NOTE | 2023-10-10 09:20 | PM.CNGS ---
History of Present Illness Consult details Consult date: 10/10/23 Narrative: Pleasant 73-year-old female known to me from previous hospital visit about a month ago. At that time she was discovered to have extensive bilateral DVTs. The decision to not thrombectomize was secondary to her history of anemia and bleeding. she presented back to the hospital with anemia with a hemoglobin down to 5.8. She has not been able to be safely anticoagulated. There is concern of GI bleed. She now presents to us for vascular evaluation. Review of Systems Review of Systems: Yes all other systems are reviewed and are negative Constitutional: Constitutional: Reports no additional constitutional complaints ENT: Reports Normal hearing present Cardiovascular: Cardiovascular: Denies chest pain, Denies chest pain at rest, Denies chest pain with activity and Denies pedal edema Respiratory: Respiratory: Denies cough Gastrointestinal: Gastrointestinal: Denies abdominal pain Musculoskeletal: Musculoskeletal: Denies abnormal gait, Denies muscle cramps and Denies radiating pain into limb Integumentary/Breasts: Skin/Breast: Denies skin ulcer and Denies wounds Neurologic: Reports Normal hearing present and Denies abnormal gait Psychiatric: Psychiatric: Reports no additional psychiatric complaints [facility] Past Medical History Medical History (Updated 10/09/23 @ 05:27 by Beronica Gallardo MD) JOE (acute kidney injury) Left against medical advice Bacteremia Chronic anemia MRSA cellulitis Asthma Legally blind Social History Social History Household Members: Family and Friend(s) Housing: Apartment Do you presently have visiting nurse or other home services: Yes Unable to assess alcohol history related to: Unknown Alcohol intake: former Patient Tobacco Use Status: Never used Tobacco e-Cigarette/Vaping Use: Former Use Second Hand Smoke Exposure: No Substance Use Type: Heroin service: No Meds Allergies Allergy/AdvReac Type Severity Reaction Status Date / Time cephalexin [From Keflex] Allergy Severe HIVES Verified 08/15/23 19:19 clindamycin [Clindamycin] Allergy Severe HIVES Verified 08/15/23 19:19 doxycycline [Doxycycline] Allergy Severe HIVES Verified 08/15/23 19:19 erythromycin base Allergy Severe HIVES Verified 08/15/23 19:20 [Erythromycin Base] levofloxacin [From Levaquin] Allergy Severe THROAT Verified 08/15/23 19:19 TIGHTENS nitrofurantoin Allergy Severe HIVES Verified 08/15/23 19:19 [From Macrobid] Penicillins Allergy Severe HIVES Verified 08/15/23 19:19 aspirin Allergy Unknown Hives Verified 08/15/23 19:19 linezolid [From ZYVOX] Allergy Unknown UNKNOWN Verified 08/15/23 19:19 Sulfa (Sulfonamide Allergy Unknown HIVES Verified 08/15/23 19:19 Antibiotics) [SULFA (SULFONAMIDE ANTIBIOTICS)] sulfacetamide Allergy Unknown Hives Verified 08/15/23 19:19 Erythromycin Allergy Unknown Hives Uncoded 04/22/23 06:01 seafood/shellfish Allergy Unknown Facial Uncoded 04/22/23 06:01 Swelling Sulfacet-R Allergy Unknown Hives Uncoded 04/22/23 06:01 Active Medications: Current Medications Acetaminophen (Acetaminophen 325 Mg Tablet) 975 mg PO Q6H PRN PRN Reason: Pain, Severe (Pain Scale 7-10) Last Admin: 10/10/23 04:01 Dose: 975 mg Albuterol Sulfate (Albuterol Sulfate (0.083%) 2.5 Mg/3 Ml Vial.Neb) 2.5 mg INHALE Q4H PRN PRN Reason: Shortness Of Breath Or Wheezing Albuterol Sulfate (Albuterol Sulfate 90 Mcg 8 Gm Inhaler) 2 puff INHALE Q4H PRN PRN Reason: Shortness Of Breath Or Wheezing Fluticasone Propionate (Fluticasone Propionate 250 Mcg Blst.W.Dev) 1 puff INHALE RBID [facility] Last Admin: 10/10/23 08:13 Dose: 1 puff Hydromorphone HCl (Hydromorphone Hcl 1 Mg/Ml Syringe) 0.5 mg IVPUSH Q4H PRN; Protocol PRN Reason: Pain, Severe (Pain Scale 7-10) Last Admin: 10/10/23 05:47 Dose: 0.5 mg Vancomycin HCl 1,000 mg/ (Sodium Chloride) 270 mls @ 270 mls/hr IV Q24H [facility] Montelukast Sodium (Montelukast Sodium 10 Mg Tablet) 10 mg PO DAILY [facility] Last Admin: 10/10/23 08:05 Dose: 10 mg Pantoprazole Sodium (Pantoprazole Sodium 40 Mg/10 Ml Vial) 40 mg IVPUSH BID [facility] Last Admin: 10/10/23 08:05 Dose: 40 mg Pharmacy Consult (Consult Rx Vancomycin Dosing) 1 each MISCELLANE DAILY PRN PRN Reason: Consult order Sodium Chloride (0.9 % Sodium Chloride Flush 3 Ml Syringe) 3 ml IVFLUSH QSHIFT [facility] Last Admin: 10/10/23 08:05 Dose: 3 ml Tramadol HCl (Tramadol Hcl 50 Mg Tablet) 50 mg PO Q4H PRN PRN Reason: Pain, Severe (Pain Scale 7-10) Last Admin: 10/10/23 04:01 Dose: 50 mg Vitamin D (Cholecalciferol (Vitamin D3) 25 Mcg Tablet) 25 mcg PO DAILY [facility] Last Admin: 10/10/23 08:05 Dose: 25 mcg Home Medications Medication Instructions Recorded Confirmed Last Taken Type albuterol sulfate 2.5 mg/3 mL 2.5 mg inhalation Q4H PRN 08/03/23 10/08/23 Unknown History (0.083 %) solution for nebulization Shortness Of Breath Or Wheezing albuterol sulfate 90 mcg/actuation 2 puff inhalation Q4-6H PRN 08/03/23 10/08/23 Unknown History aerosol inhaler Shortness Of Breath Or Wheezing cholecalciferol (vitamin D3) 25 25 mcg PO DAILY 08/03/23 10/08/23 Unknown History mcg (1,000 unit) tablet clonazepam 1 mg tablet 1 mg PO BEDTIME PRN Anxiety 08/03/23 10/08/23 Unknown History ferrous sulfate 325 mg (65 mg 650 mg PO DAILY 08/03/23 10/08/23 Unknown History iron) tablet,delayed release fluticasone propionate 220 1 puff inhalation BID 08/03/23 10/08/23 Unknown History mcg/actuation HFA aerosol inhaler (Flovent HFA) montelukast 10 mg tablet 10 mg PO DAILY 08/03/23 10/08/23 Unknown History omeprazole 20 mg capsule,delayed 20 mg PO BID 08/03/23 10/08/23 Unknown History release zolpidem 5 mg tablet 5 mg PO BEDTIME PRN Insomnia 08/03/23 10/08/23 Unknown History apixaban 5 mg tablet (Eliquis) 5 mg PO BID 10/08/23 10/08/23 Unknown History Physical Exam Vital Signs: Vital Signs: Last Vital Signs Temp 98.1 F 10/10/23 07:10 Pulse 108 H 10/10/23 08:14 Resp 18 10/10/23 08:14 BP 134/64 10/10/23 07:10 Pulse Ox 97 10/10/23 07:10 O2 Del Method Nasal Cannula 10/10/23 07:10 O2 Flow Rate 2 10/10/23 07:10 BMI result Body Mass Index 25.0 Const: General: cooperative, healthy appearing and comfortable Orientation/consciousness: oriented to person, oriented to place and oriented to time HEENT: Head: Yes normal to inspection Neck: Neck: Yes normal visual inspection Carotids: no bruits Chest: Chest palpation & inspection: normal inspection of the chest Resp: Effort & Inspection: normal respiratory effort and able to speak in complete sentences Auscultation: clear to auscultation bilaterally, no crackles, no rales, no rhonchi and no wheezes Cardio: Rate: regular rate Rhythm: regular rhythm Heart sounds: S1 normal heart sound present and S2 normal heart sound present Bruits: no carotid bruits Peripheral pulses: Peripheral pulses 2+ throughout GI: Inspection: Yes normal to inspection Skin: Wounds: no wounds Hair: normal Neuro: General: oriented to person, oriented to place and oriented to time Cranial nerves: Yes CN's II-XII intact bilaterally and Yes Normal hearing present Cognition (Neuro): normal cognition Motor exam (neuro): 5/5 motor strength present throughout Extrem: Other: venous exam: No significant superficial varicosities or spider telangiectasias, minimal edema General: No clubbing, No cyanosis and No edema Psych: Appearance: grossly normal Mental Status: mental status grossly normal Speech and movement: Normal speech and movement present Results Labs 10/10/23 06:38 10/10/23 06:38 Labs: Abnormal lab results 10/10/23 10/10/23 Range/Units 06:38 08:29 WBC 16.0 H (4.8-10.8) X10*3/uL RBC 2.31 L (4.20-5.50) X10*6/uL Hgb 7.5 L (12.0-16.0) g/dl Hct 22.6 L (37.0-47.0) % RDW 18.2 H (11.0-16.0) % Plt Count 40 L D (160-400) X10*3/uL MPV 12.8 H (9.4-12.3) fL Absolute Nucleated RBC 0.020 H (0.0-0.012) X10*3/uL Chloride 110 H (96-108) mmol/L BUN 40 H (9-16) mg/dL Calcium 7.8 L (8.4-10.2) mg/dL Urine Opiates Screen POSITIVE H (Not Detect) Urine Fentanyl Screen POSITIVE H (Not Detect) Urine Cocaine Screen POSITIVE H (Not Detect) Short CBC 10/10/23 Range/Units 06:38 WBC 16.0 H (4.8-10.8) X10*3/uL Hgb 7.5 L (12.0-16.0) g/dl Hct 22.6 L (37.0-47.0) % Plt Count 40 L D (160-400) X10*3/uL BMP 10/10/23 06:38 Sodium 141 Potassium 3.6 Chloride 110 H Carbon Dioxide 23 BUN 40 H Creatinine 1.01 Calcium 7.8 L All other labs normal. Assessment and Plan (1) DVT (deep venous thrombosis): Qualifiers: DVT location: lower extremity Affected thrombotic vein of extremity: femoral Chronicity: acute Laterality: bilateral Qualified Code(s): I82.413 - Acute embolism and thrombosis of femoral vein, bilateral Status: Acute Plan In short patient has extensive bilateral DVTs. Unfortunately he is unable to be anticoagulated. Although she is bacteremic I do think in light of safety and her current immobile status an IVC filter is indicated. She will require IVC filter placement. She is aware of the increased risk of infection secondary to her bacteremia but I do think the benefits do outweigh the risks. We will schedule as soon as possible. Thank you for allowing us to assist in her care. If there are questions or concerns please do not hesitate to contact us. Procedures Date of Service Date of Service: 10/10/23
--- NOTE | 2023-10-10 10:23 | MHC.CM.PN ---
Per ROUNDS discussion, Patient is getting an IVC Filter today and is not yet medically cleared for dc. Home vs PT's recommended LTC is the tentative plan and CM will continue to follow.
--- NOTE | 2023-10-10 11:11 | P.OP_ITS ---
Operative Note Operative Note Date of Service: 10/10/23 Narrative: Angiogram report from [facility] Preoperative diagnosis: Deep venous thrombosis Postoperative diagnosis: Same Procedure: 1. Ultrasound-guided right common femoral vein access 2. Inferior vena cavogram 3. Placement of inferior vena cava filter Surgeon:Danny Schuster M.D., FACS, RPVI Lead Net Software Developer:None Anesthesia: Local only Specimens:none Drains:none Estimated blood loss: Less than 10 ml Implant: Bard Aaliyah retrievable vena cava filter Indications: 73-year-old female with a prior history of significant bilateral lower extremity DVTs. She was anticoagulated and presented back to the hospital with a decreased hemoglobin down to 5.3. she does have a history bacteremia Along with positive blood cultures. She now presents for IVC filter placement and was aware of the fact that she is at increased risk due to her bacteremia. The patient has signed the informed consent after reviewing risks, complications, benefits, and alternatives previously discussed with the patient. The patient was given the opportunity to ask any additional questions or voice any concerns. All questions were answered to the patient's satisfaction. Procedure in detail: Patient was brought to the angiography suite prior to which a time-out was called for patient identification and site verification. Bilateral groins were prepped and draped in the standard surgical fashion. Under ultrasound guidance Right common femoral vein was punctured with micro puncture needle and wire. Subsequently a precision 5 Syriac sheath was then placed. Bentson wire was advanced to the level of the vena cava. Vena cavogram was then undertaken through the 5 Syriac sheath. This was a baseline study to define the variant anatomy, caval size, location and number of renal veins, and to evaluate for ileo caval thrombus. Under direct fluoroscopic guidance we exchanged out the 5 Syriac sheath for the Bard in Megan sheath. We brought the filter into position. This was then subsequently deployed. The inner cannula was then removed. Through the sheath a hand injection was performed to assess filter position. Once this was accomplished the sheath was then removed, and hemostasis was achieved with 10 minutes of direct compression. No immediate complications occurred and the patient was returned to the recovery suite with no complications Interpretation of films: 1. Ultrasound demonstrates appropriate femoral vein puncture. Image of which was saved. 2. There was no ileal caval thrombus noted 3. There are single renal veins bilaterally and the IVC is normal in caliber. There is no aberrant anatomy. 4. The filter was deployed appropriately and position below the lowest renal vein. Conclusion: 1. Successful placement of Bard Shackelford IVC filter 2. Anticoagulation status: Resume regular anticoagulation as indicated 4 hours post filter placement This note is constructed using voice recognition software. While every effort has been made to ensure accuracy, sand caster apprentice errors may have been included. Thank you for allowing me to participate in the care of your patient. Yours sincerely, Danny Schuster MD, FACS, R.P.V.I.
[2023-10-10 12:33] LABS: Influenza A PCR NEGATIVE (Negative); Influenza B PCR NEGATIVE (Negative); Resp Syncy Virus RNA Qual PCR NEGATIVE (Negative); SARS COV2 PCR INHOUSE NEGATIVE (Negative)
[2023-10-10 15:28] LABS: OBS Int Ctl Valid YES; OBS1 POSITIVE (NEGATIVE)
--- NOTE | 2023-10-10 15:57 | P.PNIM_ITS ---
Subjective Subjective Date of Service: 10/11/23 Interval History: gram positive bacteremia and anemia Review of Systems seems similar no new c/o went for ivc filter Physical Exam 2 Vital Signs: Vital Signs: Last Vital Signs Temp 98.1 F 10/10/23 15:21 Pulse 101 H 10/10/23 15:21 Resp 18 10/10/23 15:21 BP 109/56 L 10/10/23 15:21 Pulse Ox 94 10/10/23 15:21 O2 Del Method Nasal Cannula 10/10/23 15:21 O2 Flow Rate 2 10/10/23 15:21 BMI result Body Mass Index 25.0 Appearance: Alert.? Oriented,no apparent distress. cvs: rrr, [id number] . res: clear to auscultation ,no rhonchii or wheezing. abd: no rebound or guarding ,nt, bs present. ext pulses present , no cyanosis. neuro: axo3 , nonfocal. Objective Data Active Medications Acetaminophen (Acetaminophen 325 Mg Tablet) 975 mg PO Q6H PRN PRN Reason: Pain, Severe (Pain Scale 7-10) Last Admin: 10/10/23 11:35 Dose: 975 mg Documented By: LETICIA Albuterol Sulfate (Albuterol Sulfate (0.083%) 2.5 Mg/3 Ml Vial.Neb) 2.5 mg INHALE Q4H PRN PRN Reason: Shortness Of Breath Or Wheezing Albuterol Sulfate (Albuterol Sulfate 90 Mcg 8 Gm Inhaler) 2 puff INHALE Q4H PRN PRN Reason: Shortness Of Breath Or Wheezing Fluticasone Propionate (Fluticasone Propionate 250 Mcg Blst.W.Dev) 1 puff INHALE RBID [facility] Last Admin: 10/10/23 08:13 Dose: 1 puff Documented By: SCOVILMoshe Hydromorphone HCl (Hydromorphone Hcl 1 Mg/Ml Syringe) 0.5 mg IVPUSH Q4H PRN; Protocol PRN Reason: Pain, Severe (Pain Scale 7-10) Last Admin: 10/10/23 05:47 Dose: 0.5 mg Documented By: BORA Vancomycin HCl 1,000 mg/ (Sodium Chloride) 270 mls @ 270 mls/hr IV Q24H [facility] Montelukast Sodium (Montelukast Sodium 10 Mg Tablet) 10 mg PO DAILY [facility] Last Admin: 10/10/23 08:05 Dose: 10 mg Documented By: LETICIA Pantoprazole Sodium (Pantoprazole Sodium 40 Mg/10 Ml Vial) 40 mg IVPUSH BID [facility] Last Admin: 10/10/23 08:05 Dose: 40 mg Documented By: LETICIA Pharmacy Consult (Consult Rx Vancomycin Dosing) 1 each MISCELLANE DAILY PRN PRN Reason: Consult order Sodium Chloride (0.9 % Sodium Chloride Flush 3 Ml Syringe) 3 ml IVFLUSH QSHIFT [facility] Last Admin: 10/10/23 08:05 Dose: 3 ml Documented By: LETICIA Tramadol HCl (Tramadol Hcl 50 Mg Tablet) 50 mg PO Q4H PRN PRN Reason: Pain, Severe (Pain Scale 7-10) Last Admin: 10/10/23 13:58 Dose: 50 mg Documented By: SARABJIT Vitamin D (Cholecalciferol (Vitamin D3) 25 Mcg Tablet) 25 mcg PO DAILY [facility] Last Admin: 10/10/23 08:05 Dose: 25 mcg Documented By: LETICIA Labs 10/11/23 13:57 10/11/23 13:57 Labs: Laboratory Results - last 24 hr 10/09/23 10/09/23 10/10/23 15:15 16:34 06:38 MCV 97.8 MCH 32.5 MCHC 33.2 RDW 18.2 H Plt Count 40 L D MPV 12.8 H Absolute Nucleated RBC 0.020 H Nucleated RBC % (auto) 0.1 Anion Gap 12 Estim Creat Clear Calc 46.0 Estimated GFR 54 Random Glucose 72 Calcium 7.8 L Stool Occult Blood Urine Opiates Screen Urine Fentanyl Screen Ur Barbiturates Screen Ur Phencyclidine Scrn Ur Amphetamines Screen U Benzodiazepines Scrn Urine Cocaine Screen U Marijuana (THC) Screen COVID-19 (MIKIE) Invalid Negative COVID-19 Clin Com See Note See Note Influenza Type A (PCR) Influenza Type B (PCR) RSV RNA Qual (PCR) SARS-CoV-2 RNA (RT-PCR) 10/10/23 10/10/23 10/10/23 08:29 10:29 14:50 MCV MCH MCHC RDW Plt Count MPV Absolute Nucleated RBC Nucleated RBC % (auto) Anion Gap Estim Creat Clear Calc Estimated GFR Random Glucose Calcium Stool Occult Blood POSITIVE Urine Opiates Screen POSITIVE H Urine Fentanyl Screen POSITIVE H Ur Barbiturates Screen Not Detected Ur Phencyclidine Scrn Not Detected Ur Amphetamines Screen Not Detected U Benzodiazepines Scrn Not Detected Urine Cocaine Screen POSITIVE H U Marijuana (THC) Screen Not Detected COVID-19 (MIKIE) COVID-19 Clin Com Influenza Type A (PCR) NEGATIVE Influenza Type B (PCR) NEGATIVE RSV RNA Qual (PCR) NEGATIVE SARS-CoV-2 RNA (RT-PCR) NEGATIVE Microbiology Microbiology Results: Microbiology 10/08/23 19:31 Blood Culture - Preliminary Blood - Venous Staphylococcus aureus 10/08/23 18:05 Blood Culture - Preliminary Blood - Venous Staphylococcus aureus Assessment and Plan (1) Bacteremia due to Gram-positive bacteria: Status: Acute (2) JOE (acute kidney injury): Status: Acute Plan 73 y/o F with COPD on home O2 (2L/min NC), hepatitis C, IV drug use, MRSA abscesses,?C.diff infection, E. coli colitis, osteomyelitis (humerus, clavicle, and scapula) with MSSA bacteremia (June 2023), coccyx chronic ulcer, occlusive bilat DVT, anemia and PUD. Symptomatic anemia, suspecting GI blood loss. Patient has PUD and has been taking multiple doses of motrin daily for the last few days. She also takes Eliquis. According to previous notes pt has been refusing endoscopies. h/h:7.5/22.6 (s/p 2 prbc yesterday). Start tx with Protonix 80 mg IV now then 40 mg IV bid. Avoid NSAIDs. Eliquis on hold. Gi eval: Hold on EGD and colonoscopy for the meantime given her fraility and bactermia, ppi,moniter h/h for 24-48 hrs Acute kidney injury. Likely secondary to #1 and use of NSAIDs. received PRBC transfusion on IV fluids. resolved, off ivf. Generalized pain, chronic. Dilaudid IV as needed. Chronic obstructive pulmonary disease, not exacerbation. Continue supplemental oxygen to keep oxygen saturation above 90%, nebs prn, Continue montelukast . Gram positive bacteremia(Staph aureus bacteremia ) : Recent hospitalization secondary to MRSA bacteremia. Patient left AMA and IV abx tx was not completed. Received vancomycin IV in the emergency department today. Blood cultures were obtained-will follow blood cultures results before continuing IV antibiotic therapy. Bilateral occlusive deep venous thrombosis. IVC filter was not considered during prior hospitalization by vascular surgery as the patient was having an active infection. s/p ivc filter, Eliquis on hold. History of osteomyelitis (humerus, clavicle and scapula). Check CRP. Chronic decubitus ulcer, coccyx. Healing: added wound care consult. History of hepatitic C. : mild elevated bilirubin in steting of hepatitic C. History of IVDU. claims not using IV drugs.but utox positive for fentanyl/coacaine added additction consult. Ongoing hospitlisation need : bacteremia -need Iv vanco ,renal function/electrolytes monitering ,symptomatic anemia -need 2prbc -need h/h monitering ,going for ivc filter. Quality Stroke Does the patient have a stroke diagnosis?: No VTE Prior VTE?: Yes VTE Risk Level:: Medical - moderate - high VTE Device Contraindication: Procedure Contraindicated VTE Drug Contraindication: Treatment Not Indicated
--- NOTE | 2023-10-10 16:19 | P.CDIM_ITS ---
PROVIDER RESPONSE TEXT: To clarify, the appropriate diagnosis supported by the clinical indicators: Other etiology of the blood loss: unclear etiology QUERY TEXT: PHYSICIAN'S DOCUMENTATION REQUEST Date of Query: 10/10/2023 08:16 AM EST Patient Name: Elli Rivers Admit Date: 10/09/2023 Dear Prabhakar Justice, A review of the medical record indicates additional documentation may be needed. Please review below and update the documentation accordingly. Clinical Indicators: Progress note 10/09 - Symptomatic anemia, suspecting GI blood loss HGB 5.3 HCT 17.3 BP 108/59 L Transfused 2 units PRBC Based on the above, could you clarify which of the following is the most likely type of anemia you ar e evaluating, treating, and/or monitoring? Acute blood loss anemia Other etiology of the blood loss please specify if known Other (explain) Clinically unable to determine (explain) Thank you, Marie Gaming, CCS, CDIS Use of terms such as suspected, likely, concern for, or probable (associated with a specific diagnosi s that is being evaluated, monitored, or treated as if it exists) are acceptable and can be coded in the inpatient se tting, when documented at the time of discharge. Please use your independent medical judgment in providing your response. THIS QUERY IS PART OF THE PERMANENT MEDICAL RECORD
--- NOTE | 2023-10-10 16:19 | P.CDIM_ITS ---
PROVIDER RESPONSE TEXT: To clarify, the appropriate diagnosis supported by the clinical indicators: Chronic respiratory failure QUERY TEXT: PHYSICIAN'S DOCUMENTATION REQUEST Date of Query: 10/10/2023 08:19 AM EST Patient Name: Elli Rivers Admit Date: 10/09/2023 Dear Prabhakar Justice, A review of the medical record indicates additional documentation may be needed. Please review below and update the documentation accordingly. Clinical Indicators: PN 10/09 - COPD on home O2 (2L/min, NC) Ed: placed on 3L/min of supplemental oxygen via NC RR 20 Please clarify which of the following accurately represents the patient's respiratory status: Chronic respiratory failure O2 dependent Acute on chronic respiratory failure Other (explain) Clinically unable to determine (explain) Thank you, Marie Gaming, CCS, CDIS Use of terms such as suspected, likely, concern for, or probable (associated with a specific diagnosi s that is being evaluated, monitored, or treated as if it exists) are acceptable and can be coded in the inpatient se tting, when documented at the time of discharge. Please use your independent medical judgment in providing your response. THIS QUERY IS PART OF THE PERMANENT MEDICAL RECORD
[2023-10-10] MEDS: vancomycin HCL 1,000 MG in 0.9 % Sodium Chloride 250 ML 270 MG IV (18:22)
[2023-10-10] MEDS: Magnesium Sulfate/H2O 2 GM/50 ML PIGGYBACK IV (20:26)
--- NOTE | 2023-10-10 23:00 | W.PM.IDCN ---
History of Present Illness Data of Consult Service Date: 10/10/23 Requesting physician: Prabhakar Justice Primary Care Provider: Karla Ceballos MD HPI Reason for consult: sepsis,staph aureus She presents with weakness and fatigue. She has had MSSA bacteremia 06/2023 and then MRSA bacteremia with right shoulder pain in August 2023 and left AMA. Now she is back with right shoulder pain and has staph aureus bacteremia. She has had Cdiff as well. Review of Systems Review of Systems: Yes all other systems are reviewed and are negative Integumentary/Breasts: Skin/Breast: Reports other (right shoulder pain) PMFSH Past Medical History Medical History (Updated 10/09/23 @ 05:27 by Beronica Gallardo MD) JOE (acute kidney injury) Left against medical advice Bacteremia Chronic anemia MRSA cellulitis Asthma Legally blind Social History Social History Household Members: Family and Friend(s) Housing: Apartment Do you presently have visiting nurse or other home services: Yes Unable to assess alcohol history related to: Unknown Alcohol intake: former Patient Tobacco Use Status: Never used Tobacco e-Cigarette/Vaping Use: Former Use Second Hand Smoke Exposure: No Substance Use Type: Heroin service: No Meds Allergies Allergy/AdvReac Type Severity Reaction Status Date / Time cephalexin [From Keflex] Allergy Severe HIVES Verified 08/15/23 19:19 clindamycin [Clindamycin] Allergy Severe HIVES Verified 08/15/23 19:19 doxycycline [Doxycycline] Allergy Severe HIVES Verified 08/15/23 19:19 erythromycin base Allergy Severe HIVES Verified 08/15/23 19:20 [Erythromycin Base] levofloxacin [From Levaquin] Allergy Severe THROAT Verified 08/15/23 19:19 TIGHTENS nitrofurantoin Allergy Severe HIVES Verified 08/15/23 19:19 [From Macrobid] Penicillins Allergy Severe HIVES Verified 08/15/23 19:19 aspirin Allergy Unknown Hives Verified 08/15/23 19:19 linezolid [From ZYVOX] Allergy Unknown UNKNOWN Verified 08/15/23 19:19 Sulfa (Sulfonamide Allergy Unknown HIVES Verified 08/15/23 19:19 Antibiotics) [SULFA (SULFONAMIDE ANTIBIOTICS)] sulfacetamide Allergy Unknown Hives Verified 08/15/23 19:19 Erythromycin Allergy Unknown Hives Uncoded 04/22/23 06:01 seafood/shellfish Allergy Unknown Facial Uncoded 04/22/23 06:01 Swelling Sulfacet-R Allergy Unknown Hives Uncoded 04/22/23 06:01 Active Medications: Current Medications Acetaminophen (Acetaminophen 325 Mg Tablet) 975 mg PO Q6H PRN PRN Reason: Pain, Severe (Pain Scale 7-10) Last Admin: 10/10/23 11:35 Dose: 975 mg Albuterol Sulfate (Albuterol Sulfate (0.083%) 2.5 Mg/3 Ml Vial.Neb) 2.5 mg INHALE Q4H PRN PRN Reason: Shortness Of Breath Or Wheezing Albuterol Sulfate (Albuterol Sulfate 90 Mcg 8 Gm Inhaler) 2 puff INHALE Q4H PRN PRN Reason: Shortness Of Breath Or Wheezing Fluticasone Propionate (Fluticasone Propionate 250 Mcg Blst.W.Dev) 1 puff INHALE RBID [facility] Last Admin: 10/10/23 19:29 Dose: Not Given Hydromorphone HCl (Hydromorphone Hcl 1 Mg/Ml Syringe) 0.5 mg IVPUSH Q4H PRN; Protocol PRN Reason: Pain, Severe (Pain Scale 7-10) Last Admin: 10/10/23 22:25 Dose: 0.5 mg Vancomycin HCl 1,000 mg/ (Sodium Chloride) 270 mls @ 270 mls/hr IV Q24H [facility] Last Infusion: 10/10/23 20:30 Dose: Infused Montelukast Sodium (Montelukast Sodium 10 Mg Tablet) 10 mg PO DAILY [facility] Last Admin: 10/10/23 08:05 Dose: 10 mg Pantoprazole Sodium (Pantoprazole Sodium 40 Mg/10 Ml Vial) 40 mg IVPUSH BID [facility] Last Admin: 10/10/23 20:04 Dose: 40 mg Pharmacy Consult (Consult Rx Vancomycin Dosing) 1 each MISCELLANE DAILY PRN PRN Reason: Consult order Sodium Chloride (0.9 % Sodium Chloride Flush 3 Ml Syringe) 3 ml IVFLUSH QSHIFT [facility] Last Admin: 10/10/23 20:04 Dose: 3 ml Tramadol HCl (Tramadol Hcl 50 Mg Tablet) 50 mg PO Q4H PRN PRN Reason: Pain, Severe (Pain Scale 7-10) Last Admin: 10/10/23 20:02 Dose: 50 mg Vitamin D (Cholecalciferol (Vitamin D3) 25 Mcg Tablet) 25 mcg PO DAILY [facility] Last Admin: 10/10/23 08:05 Dose: 25 mcg Home Medications Medication Instructions Recorded Confirmed Last Taken Type albuterol sulfate 2.5 mg/3 mL 2.5 mg inhalation Q4H PRN 08/03/23 10/08/23 Unknown History (0.083 %) solution for nebulization Shortness Of Breath Or Wheezing albuterol sulfate 90 mcg/actuation 2 puff inhalation Q4-6H PRN 08/03/23 10/08/23 Unknown History aerosol inhaler Shortness Of Breath Or Wheezing cholecalciferol (vitamin D3) 25 25 mcg PO DAILY 08/03/23 10/08/23 Unknown History mcg (1,000 unit) tablet clonazepam 1 mg tablet 1 mg PO BEDTIME PRN Anxiety 08/03/23 10/08/23 Unknown History ferrous sulfate 325 mg (65 mg 650 mg PO DAILY 08/03/23 10/08/23 Unknown History iron) tablet,delayed release fluticasone propionate 220 1 puff inhalation BID 08/03/23 10/08/23 Unknown History mcg/actuation HFA aerosol inhaler (Flovent HFA) montelukast 10 mg tablet 10 mg PO DAILY 08/03/23 10/08/23 Unknown History omeprazole 20 mg capsule,delayed 20 mg PO BID 08/03/23 10/08/23 Unknown History release zolpidem 5 mg tablet 5 mg PO BEDTIME PRN Insomnia 08/03/23 10/08/23 Unknown History apixaban 5 mg tablet (Eliquis) 5 mg PO BID 10/08/23 10/08/23 Unknown History Physical Exam Vital Signs: Vital Signs: Last Vital Signs Temp 97.9 F 10/10/23 19:21 Pulse 103 H 10/10/23 19:21 Resp 18 10/10/23 19:21 BP 130/70 10/10/23 19:21 Pulse Ox 94 10/10/23 19:21 O2 Del Method Nasal Cannula 10/10/23 19:21 O2 Flow Rate 2 10/10/23 19:21 BMI result Body Mass Index 25.0 Results Labs 10/10/23 06:38 10/10/23 06:38 Labs: Short CBC 10/10/23 Range/Units 06:38 WBC 16.0 H (4.8-10.8) X10*3/uL Hgb 7.5 L (12.0-16.0) g/dl Hct 22.6 L (37.0-47.0) % Plt Count 40 L D (160-400) X10*3/uL BMP 10/10/23 06:38 Sodium 141 Potassium 3.6 Chloride 110 H Carbon Dioxide 23 BUN 40 H Creatinine 1.01 Calcium 7.8 L Microbiology Microbiology Results: Microbiology 10/08/23 19:31 Blood - Venous Blood Culture - Preliminary Staphylococcus aureus 10/08/23 18:05 Blood - Venous Blood Culture - Preliminary Staphylococcus aureus Assessment and Plan (1) Bacteremia due to Gram-positive bacteria: Status: Acute There is possible endocarditis Staph could be MRSA or MSSA. Continue Vancomycin Check echo TTE at first at least. Need probable six weeks. Ortho evaluation shoulder if pain continues. (2) Generalized weakness: Status: Acute (3) JOE (acute kidney injury): Status: Acute
[2023-10-11] VITALS (9 sets, daily range): BP systolic 119–161; BP diastolic 58–81; PULSE 94–104; RESP 17–20; TEMP 36.1–37.1; O2SAT 95–99
[2023-10-11] MEDS: Acetaminophen 325 MG TABLET 975 MG PO ×3 (00:23→16:56)
[2023-10-11] MEDS: traMADoL HCL 50 MG TABLET PO ×4 (00:23→18:11)
[2023-10-11] MEDS: HYDROmorphone HCl 1 MG/ML SYRINGE 0.5 MG IVPUSH ×4 (03:22→21:42)
[2023-10-11] MEDS: Fluticasone Propionate 250 MCG BLST.W.DEV 1 PUFF INHALE (07:19)
[2023-10-11] MEDS: 0.9 % Sodium Chloride Flush 3 ML SYRINGE IVFLUSH ×3 (08:12→21:41)
[2023-10-11] MEDS: Cholecalciferol (Vitamin D3) 25 MCG TABLET PO (08:12)
[2023-10-11] MEDS: Pantoprazole Sodium 40 MG/10 ML VIAL IVPUSH ×2 (08:12→21:40)
[2023-10-11] MEDS: Montelukast Sodium 10 MG TABLET PO (08:13)
[2023-10-11 14:18] LABS: CRP High Sensitivity >10.0 mg/L
[2023-10-11 14:24] LABS: Hematocrit 25.7 % (37.0-47.0); Hemoglobin 8.2 g/dl (12.0-16.0)
[2023-10-11 14:25] LABS: Platelet Count 47 X10*3/uL (160-400)
[2023-10-11 14:45] LABS: Anion Gap 10 (12-20); Blood Urea Nitrogen 31 mg/dL (9-16); Calcium 7.2 mg/dL (8.4-10.2); Carbon Dioxide 23 mmol/L (22-29); Chloride 105 mmol/L (96-108); Creatinine Clr Calc Pharmacy 54.7; Estimated Glomerular Filt Rate > 60; Glucose Random 116 mg/dL (60-115); Potassium 3.1 mmol/L (3.3-5.1); Sodium 135 mmol/L (135-145)
--- NOTE | 2023-10-11 15:05 | P.PNIM_ITS ---
Subjective Subjective Date of Service: 10/11/23 Interval History: gram positive bacteremia and anemia/thrombocytopenia Review of Systems s/p ivc filter yesterday no fever or cough says has bump on shoulder from unclear duration ,today has pain Physical Exam 2 Vital Signs: Vital Signs: Last Vital Signs Temp 98.7 F 10/11/23 11:52 Pulse 97 10/11/23 11:52 Resp 17 10/11/23 11:52 BP 119/66 10/11/23 11:52 Pulse Ox 99 10/11/23 11:52 O2 Del Method Nasal Cannula 10/11/23 11:52 O2 Flow Rate 2 10/11/23 11:52 BMI result Body Mass Index 25.0 Appearance: Alert.? Oriented,no apparent distress. cvs: rrr, [id number] . res: clear to auscultation ,no rhonchii or wheezing. abd: no rebound or guarding ,nt, bs present. ext pulses present , no cyanosis. right shoulder area (? scar from incision -in the past,has soft bump, no erythema ) neuro: axo3 , nonfocal. Objective Data Active Medications Acetaminophen (Acetaminophen 325 Mg Tablet) 975 mg PO Q6H PRN PRN Reason: Pain, Severe (Pain Scale 7-10) Last Admin: 10/11/23 08:13 Dose: 975 mg Documented By: LETICIA Albuterol Sulfate (Albuterol Sulfate (0.083%) 2.5 Mg/3 Ml Vial.Neb) 2.5 mg INHALE Q4H PRN PRN Reason: Shortness Of Breath Or Wheezing Albuterol Sulfate (Albuterol Sulfate 90 Mcg 8 Gm Inhaler) 2 puff INHALE Q4H PRN PRN Reason: Shortness Of Breath Or Wheezing Fluticasone Propionate (Fluticasone Propionate 250 Mcg Blst.W.Dev) 1 puff INHALE RBID [facility] Last Admin: 10/11/23 07:19 Dose: 1 puff Documented By: MARCIE Hydromorphone HCl (Hydromorphone Hcl 1 Mg/Ml Syringe) 0.5 mg IVPUSH Q4H PRN; Protocol PRN Reason: Pain, Severe (Pain Scale 7-10) Last Admin: 10/11/23 14:40 Dose: 0.5 mg Documented By: LETICIA Vancomycin HCl 1,000 mg/ (Sodium Chloride) 270 mls @ 270 mls/hr IV Q24H [facility] Last Infusion: 10/10/23 20:30 Dose: Infused Documented By: BORA Montelukast Sodium (Montelukast Sodium 10 Mg Tablet) 10 mg PO DAILY [facility] Last Admin: 10/11/23 08:13 Dose: 10 mg Documented By: LETICIA Pantoprazole Sodium (Pantoprazole Sodium 40 Mg/10 Ml Vial) 40 mg IVPUSH BID [facility] Last Admin: 10/11/23 08:12 Dose: 40 mg Documented By: LETICIA Pharmacy Consult (Consult Rx Vancomycin Dosing) 1 each MISCELLANE DAILY PRN PRN Reason: Consult order Potassium Chloride (Potassium Chloride Packet 20 Meq Packet) 40 meq PO ONCE ONE Stop: 10/11/23 15:05 Sodium Chloride (0.9 % Sodium Chloride Flush 3 Ml Syringe) 3 ml IVFLUSH QSHIFT [facility] Last Admin: 10/11/23 14:41 Dose: 3 ml Documented By: LETICIA Tramadol HCl (Tramadol Hcl 50 Mg Tablet) 50 mg PO Q4H PRN PRN Reason: Pain, Severe (Pain Scale 7-10) Last Admin: 10/11/23 12:32 Dose: 50 mg Documented By: LETICIA Vitamin D (Cholecalciferol (Vitamin D3) 25 Mcg Tablet) 25 mcg PO DAILY [facility] Last Admin: 10/11/23 08:12 Dose: 25 mcg Documented By: LETICIA Labs 10/11/23 13:57 10/11/23 13:57 Labs: Laboratory Results - last 24 hr 10/09/23 10/10/23 10/11/23 06:16 14:50 13:57 Plt Count 47 L Anion Gap 10 L Estim Creat Clear Calc 54.7 Estimated GFR > 60 Random Glucose 116 H Calcium 7.2 L D C-React Prot High Sens >10.0 H Stool Occult Blood POSITIVE Microbiology Microbiology Results: Microbiology 10/08/23 19:31 Blood Culture - Final Blood - Venous Methicillin Res Staph Aureus 10/08/23 18:05 Blood Culture - Final Blood - Venous Methicillin Res Staph Aureus Assessment and Plan (1) Bacteremia due to Gram-positive bacteria: Status: Acute (2) DVT (deep venous thrombosis): Status: Acute Plan 73 y/o F with COPD on home O2 (2L/min NC), hepatitis C, IV drug use, MRSA abscesses,?C.diff infection, E. coli colitis, osteomyelitis (humerus, clavicle, and scapula) with MSSA bacteremia (June 2023), coccyx chronic ulcer, occlusive bilat DVT, anemia and PUD. Symptomatic anemia, suspecting GI blood loss. Patient has PUD and has been taking multiple doses of motrin daily for the last few days. She also takes Eliquis. According to previous notes pt has been refusing endoscopies. h/h:8.2/25.7(s/p 2 prbc on 10/09/23). Gi eval: Hold on EGD and colonoscopy for the meantime given her fraility and bactermia, ppi,moniter h/h for 24-48 hrs ,d/w hematology/Gi -patient has anemia/thrombocytopnia -currently hold eliquis. moniter h/h closely. Acute kidney injury. Likely secondary to #1 and use of NSAIDs. received PRBC transfusion on IV fluids. resolved, off ivf. Generalized pain, chronic. Dilaudid IV as needed. ch repsiratory failure sec Chronic obstructive pulmonary disease, not exacerbation. Continue supplemental oxygen to keep oxygen saturation above 90%, nebs prn, Continue montelukast . Gram positive bacteremia(Staph aureus bacteremia ) : Recent hospitalization secondary to MRSA bacteremia. Patient left AMA and IV abx tx was not completed. lactic acid normal,again has Mrsa bacteremia, added TTE . continue vancomycin. Bilateral occlusive deep venous thrombosis. s/p ivc filter, Eliquis on hold-please see above (anemia/severe thrombocytopenia). History of osteomyelitis (humerus, clavicle and scapula). CRP>10. has mrsa bacteremia right upper shoulder pain/bump added right shoulder ct scan ortho eval. Chronic decubitus ulcer, coccyx. Healing: added wound care consult. History of hepatitic C. : mild elevated bilirubin in steting of hepatitic C. will check hiv ,hapatitis c viralload d/w hematology :thrombocytopenia also mutlifactroial -hepatitis c-possible liver dis /also has mrsa bacteremia History of IVDU. claims not using IV drugs.but utox positive for fentanyl/coacaine added additction consult. Ongoing hospitlisation need : bacteremia -need Iv vanco ,renal function/electrolytes monitering ,symptomatic anemia /thrombocytopenia - requiring transfusion-need h/h monitering , need acrdiac workup for IE,also need expert consultation for right shoulder pain/bump. Quality Stroke Does the patient have a stroke diagnosis?: No VTE Prior VTE?: Yes VTE Risk Level:: Medical - moderate - high VTE Device Contraindication: Procedure Contraindicated VTE Drug Contraindication: Treatment Not Indicated
[2023-10-11] MEDS: Potassium Chloride Packet 20 MEQ PACKET 40 MEQ PO (15:11)
--- NOTE | 2023-10-11 15:19 | HO.SKINPHOTO ---
Location: Category: Stage: Length: Width: Depth: cm Location: Category: Stage: Length: Width: Depth: cm Location: Category: Stage: Length: Width: Depth: cm Location: Category: Stage: Length: Width: Depth: cm Location: Category: Stage: Length: Width: Depth: cm Location: Category: Stage: Length: Width: Depth: cm Right shoulder
--- NOTE | 2023-10-11 17:53 | HO.WOUND ---
Wound Consult: Initial 73yr old F?admitted to [facility] [place] on? /?05/24- See progress notes and H&P for detailed history.? Wound consult placed for Coccyx wound. Arrival to bedside patient is agreeable to assessment and photo documentation. Coccyx Etiology: ?Unstageable Pressure Injury ?Present on Admission Measurements:see charting for details Wound Bed: smaller this admission - remains full thickness tissue loss with adherent slough to central part of wound bed - moist Drainage / Odor: Ser[place]ang - no odor noted Edges: ? macerated Rajani wound: pink blanchable intact tissue - various areas of maroon nonblancahble tissue -? No Induration, Fluctuance or Warmth noted Pain: reports pain Goals of Treatment: ? Moisture management with Alginate and off loading Right Elbow Etiology: ?Unstageable Pressure Injury ?Present on Admission Measurements:see charting for details Wound Bed: adherent thin yellow white slough to central part of wound bed - moist - suspect partial thickness tissue loss - will clean for wound bed assessment at next visit Drainage / Odor: Serosang - no odor noted Edges: ?attached Rajani wound: hyperpigmented intact tissue - No Induration, Fluctuance or Warmth noted Pain: reports pain Goals of Treatment: ? Moisture management with Alginate and off loading Resolving / resurfacing chronic wound - pink moist tissue - Hydrocolloid applied Bilateral heels intact but bright red - tender to touch and Present on admission - no open tissue noted and remain slow to darion at this time - concern for injury development. Foam dressing applied and off loaded with pillows - refused boots Recommendations: 1. Turn and Reposition every 2 hours and as needed for patient comfort.? Use pillows or wedges to support off loading positions. 2. Off Load all bony prominences with use of pillows and heel boots if needed.? Apply Preventative foams where needed. ? 3. Monitor for incontinence and moisture control, use barrier creams when needed for prevention and treatment. 4. Provide adequate and supplemental nutrition. Place Nutrition consult if appropriate. 5. Order or Continue low air loss mattress. 6. Maintain blood glucose levels per Providers orders if applicable. 7. Coccyx and Right Elbow - Cleanse and irrigate with NS, Pat dry.? Apply barrier to periwound, lightly pack with Alginate / Durafiber AG, be sure to leave a wick to easy removal.? Cover with Foam dressing.? Change Daily. 8. Right Inner AC - Cleanse with NS moist gauze allow to dry. Apply cut to size hydrocolloid - change every 3 days. 9. Bilateral Heels - Apply Foam dressing for prevention. Off Load Pressure with boots or pillows. Re-consult wound care Nurse for wound deterioration or wound changes.
[2023-10-11 17:54] LABS: Vancomycin Random 13.1 mcg/mL (15-20)
[2023-10-11 17:55] LABS: Creatinine Clr Calc Pharmacy 58.7; Estimated Glomerular Filt Rate > 60
--- NOTE | 2023-10-11 18:01 | HE.PHANOTE ---
RE: darshan Changed daily trough to 0900; level came back at 13.1. PAtient's renal function improving, increased dose to 1250mg Q24H with predicted AUC of 456 mg/L, trough of 12.6. Next level to be drawn after two doses on 10/13 @1700
[2023-10-11] MEDS: vancomycin HCL 1,250 MG in 0.9 % Sodium Chloride 250 ML 166.67 MG IV (18:22)
[2023-10-12] MEDS: traMADoL HCL 50 MG TABLET PO ×3 (01:17→15:32)
[2023-10-12 03:18] VITALS: BP 126/68; PULSE 100; RESP 18; TEMP 36.8; O2SAT 97
[2023-10-12] MEDS: Acetaminophen 325 MG TABLET 975 MG PO ×2 (05:03→12:29)
[2023-10-12] MEDS: HYDROmorphone HCl 1 MG/ML SYRINGE 0.5 MG IVPUSH ×3 (05:04→20:43)
--- NOTE | 2023-10-12 07:00 | CA_ITS ---
Transthoracic Echocardiogram Patient (Last, First, Middle): Elli Rivers, Gender: Female Date of : 1950 Age: 73 Procedure Date: 10/12/2023 Procedure Type: Transthoracic [place]ocardiogram [place] [facility] [place]: 160.02 cm Weight: 63.96 kg BSA: 1.67 m2 Heart Rate: bpm BP: 149 / 72 mmHg Music Leader: Referring MD: Prabhakar Justice MD Director Economic: Bennett Rao MD Symptoms: bacteremia -staph Study Quality: Technically Difficult ECG Rhythm: Sinus Conclusions: - 1. Technically limited study 2. Vegetations can not be entirely ruled out on this study 3. Normal LV ejection fraction 55-60% 4. Calcific aortic valve changes noted with cardiac valvular Dopplers showing mild regurgitation of the mitral valve Findings Left Ventricle Normal left ventricular size, thickness, and systolic function. The visually estimated ejection fraction is between 55-60%. Regional wall motion abnormalities can not be excluded due to suboptimal endocardial definition. Spectral Doppler is indicative of an impaired relaxation filling pattern. Right Ventricle The right ventricle was not well visualized. Atria The left atrium was not well visualized. Interatrial shunt cannot be excluded. The right atrium was not well visualized. Aortic Valve The aortic valve was not well visualized. There is moderate calcification of the aortic valve. There is no aortic valve stenosis. There is no aortic valve regurgitation. Mitral Valve There is mild anterior and moderate posterior mitral leaflet thickening. There is mild mitral valve regurgitation. There is no mitral valve stenosis. Pulmonic Valve The pulmonic valve was not well visualized. Tricuspid Valve The tricuspid valve was not well visualized. Tricuspid regurgitation envelope is inadequate for calculation of right ventricular systolic pressure. Normal right atrial pressure. Great Vessels The aorta was not well visualized. The pulmonary artery was not well visualized. Venous The inferior vena cava is normal in size and collapses greater than 50% with inspiration. Pericardium/Pleural The pericardium was not well visualized. Prior Study Comparison No significant change compared to prior study dated: 08/16/2023. Recommendations, Care & Conclusions Consider a NIC if clinically appropriate. Measurements 2D Linear Measurements IVSd: 0.87 0.6-0.9/0.6-1.0 cm LVIDd: 4.56 3.9-5.3/4.2-5.9 cm LVIDd Index: 2.73 2.4-3.2/2.2-3.1 cm/m2 LVIDs: 3.36 2.0-3.6 cm LVPWd: 0.98 0.7-1.1 cm LV Mass: 175.55 67-162/88-224 g LV Mass Index: 105.12 43-95/49-115 g/m2 Mitral Valve MV Pk E: 0.62 MV PK A: 0.77 MV Decel Time: 185.00 E/A: 0.80 E'Lateral: 8.27 E'Medial: 6.09 E/E' Med: 10.20 E/E' Lat: 7.50 PHT: 54.00 MVA PHT: 4.07 Decel [place]: 3.36 Aortic Valve AoV Pk [place]: 1.61 AoV Mn [place]: 1.04 AoV VTI: 0.32 AoV Pk Grad: 10.00 Aov Mn Grad: 5.00 LVOT LVOT Pk [place]: 0.77 LVOT Mn [place]: 0.46 LVOT VTI: 0.18 LVOT Pk Grad: 2.00 LVOT Mn Grad: 1.00 Diastolic Function MV Pk E: 0.62 MV Pk A: 0.77 E/A: 0.80 E'Medial: 6.09 E/E' Med: 10.20 E' L[place]: 8.27 E/E' Lat: 7.50 Tricuspid Valve TR Pk [place]: 2.99 TR Pk Grad: 36.00 Pulmonary Valve PV Pk [place]: 1.12 Peak PV Grad: 5.00 Updated in Other Vendor System with Status of Final Bennett Rao MD electronically signed on 10/12/2023 3:37:05 PM with status of Final
[2023-10-12 07:30] VITALS: BP 134/65; PULSE 103; RESP 18; TEMP 36.7; O2SAT 98
[2023-10-12] MEDS: 0.9 % Sodium Chloride Flush 3 ML SYRINGE IVFLUSH ×3 (08:13→20:43)
[2023-10-12] MEDS: Montelukast Sodium 10 MG TABLET PO (08:13)
[2023-10-12] MEDS: Pantoprazole Sodium 40 MG/10 ML VIAL IVPUSH (08:13)
[2023-10-12] MEDS: Cholecalciferol (Vitamin D3) 25 MCG TABLET PO (08:13)
--- NOTE | 2023-10-12 08:13 | P.CONOP_ITS ---
History of Present Illness HPI Consult date: 10/12/23 Chief complaint: Symptomatic Anemia Narrative: 73 yo female with a past medical history significant for COPD on home O2 (2L/min NC), hepatitis C, IV drug use, MRSA abscesses,?C.diff infection, E. coli colitis, osteomyelitis (humerus, clavicle, and scapula) with MSSA bacteremia (June 2023), coccyx chronic ulcer, occlusive bilat DVT, anemia and PUD presents to the emergency department complaining of pain to her extremities and back. Chart review, patient was hospitalized last month with diagnosis of MRSA bacteremia that did not improved with vancomycin and was changed to daptomycin but, unfortunately, patient left AMA. She was admitted to the medical service for continued treatment of her bacteremia, on Vanco 1750 in ED. Orthopedics was consulted for right shoulder abscess/ swelling. Patient states the pain in the shoulder and the lump started about 5 days ago. She has a scar over the lump and she states sometime within the year it was operated on in our hospital. No current records note this. She is unsure why or what the procedure was. Review of Systems 2 Review of Systems: per [facility] Past Medical History Medical History (Updated 10/12/23 @ 11:23 by Ciara Zapata CNP) JOE (acute kidney injury) Left against medical advice Bacteremia Chronic anemia MRSA cellulitis Asthma Legally blind Social History Social History Household Members: Family and Friend(s) Housing: Apartment Do you presently have visiting nurse or other home services: Yes Unable to assess alcohol history related to: Unknown Alcohol intake: former Patient Tobacco Use Status: Never used Tobacco e-Cigarette/Vaping Use: Former Use Second Hand Smoke Exposure: No Substance Use Type: Heroin service: No Meds Allergies Allergy/AdvReac Type Severity Reaction Status Date / Time cephalexin [From Keflex] Allergy Severe HIVES Verified 08/15/23 19:19 clindamycin [Clindamycin] Allergy Severe HIVES Verified 08/15/23 19:19 doxycycline [Doxycycline] Allergy Severe HIVES Verified 08/15/23 19:19 erythromycin base Allergy Severe HIVES Verified 08/15/23 19:20 [Erythromycin Base] levofloxacin [From Levaquin] Allergy Severe THROAT Verified 08/15/23 19:19 TIGHTENS nitrofurantoin Allergy Severe HIVES Verified 08/15/23 19:19 [From Macrobid] Penicillins Allergy Severe HIVES Verified 08/15/23 19:19 aspirin Allergy Unknown Hives Verified 08/15/23 19:19 linezolid [From ZYVOX] Allergy Unknown UNKNOWN Verified 08/15/23 19:19 Sulfa (Sulfonamide Allergy Unknown HIVES Verified 08/15/23 19:19 Antibiotics) [SULFA (SULFONAMIDE ANTIBIOTICS)] sulfacetamide Allergy Unknown Hives Verified 08/15/23 19:19 Erythromycin Allergy Unknown Hives Uncoded 04/22/23 06:01 seafood/shellfish Allergy Unknown Facial Uncoded 04/22/23 06:01 Swelling Sulfacet-R Allergy Unknown Hives Uncoded 04/22/23 06:01 Active Medications: Current Medications Acetaminophen (Acetaminophen 325 Mg Tablet) 975 mg PO Q6H PRN PRN Reason: Pain, Severe (Pain Scale 7-10) Last Admin: 10/12/23 05:03 Dose: 975 mg Albuterol Sulfate (Albuterol Sulfate (0.083%) 2.5 Mg/3 Ml Vial.Neb) 2.5 mg INHALE Q4H PRN PRN Reason: Shortness Of Breath Or Wheezing Albuterol Sulfate (Albuterol Sulfate 90 Mcg 8 Gm Inhaler) 2 puff INHALE Q4H PRN PRN Reason: Shortness Of Breath Or Wheezing Fluticasone Propionate (Fluticasone Propionate 250 Mcg Blst.W.Dev) 1 puff INHALE ID [facility] Last Admin: 10/12/23 07:39 Dose: Not Given Hydromorphone HCl (Hydromorphone Hcl 1 Mg/Ml Syringe) 0.5 mg IVPUSH Q4H PRN; Protocol PRN Reason: Pain, Severe (Pain Scale 7-10) Last Admin: 10/12/23 05:04 Dose: 0.5 mg Vancomycin HCl 1,250 mg/ (Sodium Chloride) 250 mls @ 166.667 mls/hr IV Q24H [facility] Last Infusion: 10/11/23 19:52 Dose: Infused Montelukast Sodium (Montelukast Sodium 10 Mg Tablet) 10 mg PO DAILY [facility] Last Admin: 10/12/23 08:13 Dose: 10 mg Pantoprazole Sodium (Pantoprazole Sodium 40 Mg/10 Ml Vial) 40 mg IVPUSH BID [facility] Last Admin: 10/12/23 08:13 Dose: 40 mg Pharmacy Consult (Consult Rx Vancomycin Dosing) 1 each MISCELLANE DAILY PRN PRN Reason: Consult order Sodium Chloride (0.9 % Sodium Chloride Flush 3 Ml Syringe) 3 ml IVFLUSH QSHIFT [facility] Last Admin: 10/12/23 08:13 Dose: 3 ml Tramadol HCl (Tramadol Hcl 50 Mg Tablet) 50 mg PO Q4H PRN PRN Reason: Pain, Severe (Pain Scale 7-10) Last Admin: 10/12/23 08:13 Dose: 50 mg Vitamin D (Cholecalciferol (Vitamin D3) 25 Mcg Tablet) 25 mcg PO DAILY [facility] Last Admin: 10/12/23 08:13 Dose: 25 mcg Home Medications Medication Instructions Recorded Confirmed Last Taken Type albuterol sulfate 2.5 mg/3 mL 2.5 mg inhalation Q4H PRN 08/03/23 10/08/23 Unknown History (0.083 %) solution for nebulization Shortness Of Breath Or Wheezing albuterol sulfate 90 mcg/actuation 2 puff inhalation Q4-6H PRN 08/03/23 10/08/23 Unknown History aerosol inhaler Shortness Of Breath Or Wheezing cholecalciferol (vitamin D3) 25 25 mcg PO DAILY 08/03/23 10/08/23 Unknown History mcg (1,000 unit) tablet clonazepam 1 mg tablet 1 mg PO BEDTIME PRN Anxiety 08/03/23 10/08/23 Unknown History ferrous sulfate 325 mg (65 mg 650 mg PO DAILY 08/03/23 10/08/23 Unknown History iron) tablet,delayed release fluticasone propionate 220 1 puff inhalation BID 08/03/23 10/08/23 Unknown History mcg/actuation HFA aerosol inhaler (Flovent HFA) montelukast 10 mg tablet 10 mg PO DAILY 08/03/23 10/08/23 Unknown History omeprazole 20 mg capsule,delayed 20 mg PO BID 08/03/23 10/08/23 Unknown History release zolpidem 5 mg tablet 5 mg PO BEDTIME PRN Insomnia 08/03/23 10/08/23 Unknown History apixaban 5 mg tablet (Eliquis) 5 mg PO BID 10/08/23 10/08/23 Unknown History Physical Exam 2 Vital Signs: Vital Signs: Last Vital Signs Temp 98.1 F 10/12/23 07:30 Pulse 103 H 10/12/23 07:30 Resp 18 10/12/23 07:30 BP 134/65 10/12/23 07:30 Pulse Ox 98 10/12/23 07:30 O2 Del Method Nasal Cannula 10/12/23 07:30 O2 Flow Rate 2 10/12/23 07:30 BMI result Body Mass Index 25.0 Const: General: cooperative, healthy appearing and comfortable Extrem: Other: Right shoulder with tennis golf ball sized lump over the ac joint. This is soft. No area of drainage. There is evidence of old surgical scar. Mild discomfort to palpation. Results Labs 10/11/23 13:57 10/11/23 17:13 Labs: Abnormal lab results 10/09/23 10/11/23 10/11/23 Range/Units 06:16 13:57 17:13 Hgb 8.2 L (12.0-16.0) g/dl Hct 25.7 L (37.0-47.0) % Plt Count 47 L (160-400) X10*3/uL Potassium 3.1 L (3.3-5.1) mmol/L Anion Gap 10 L (12-20) BUN 31 H (9-16) mg/dL Random Glucose 116 H (60-115) mg/dL Calcium 7.2 L D (8.4-10.2) mg/dL C-React Prot High Sens >10.0 H mg/L Random Vancomycin 13.1 L (15-20) mcg/mL H & H 10/08/23 10/09/23 10/10/23 Range/Units 19:31 06:16 06:38 Hgb 5.3 L* D 7.9 L D 7.5 L (12.0-16.0) g/dl Hct 17.3 L* D 24.7 L D 22.6 L (37.0-47.0) % 10/11/23 Range/Units 13:57 Hgb 8.2 L (12.0-16.0) g/dl Hct 25.7 L (37.0-47.0) % Coagulation 10/08/23 Range/Units 19:34 INR 1.8 H (0.9-1.1) All other labs normal. Diagnostic results Shoulder CT: report reviewed (CT shoulder RT wo IV con IMPRESSION: 1. Absence of the distal clavicle as well as attenuation and fragmentation of the acromion is redemonstrated, similar when compared to the radiographs dated 08/18/2023. Focal erosion/cortical defect at the anteromedial aspect of the humeral head measuring up to ) Assessment and Plan (1) Bacteremia due to Gram-positive bacteria: Status: Acute (2) Abscess of right shoulder: Status: Acute Plan discussed with dr morel findings on xray and ct scan consistent with rtc arthropathy no evidence of abscess formation non surgical intervention required at this time as it does not appear infected Procedures Date of Service Date of Service: 10/12/23
--- NOTE | 2023-10-12 09:44 | HO.VASCPN ---
Subjective Subjective Date of Service: 10/12/23 Interval history: Bleeding. In addition she has platelets down to 47. Unfortunately she did have bacteremia. Decision was made to place filter as it appears that the benefits would outweigh the risks of this due to the extensive clot burden. She now presents for routine postprocedure follow-up. Very complex 73-year-old female presents for follow-up status post IVC filter placement. She did have extensive DVT. They were unable to anticoagulate due to Physical Exam Vital Signs: Vital Signs: Last Vital Signs Temp 98.1 F 10/12/23 07:30 Pulse 103 H 10/12/23 07:30 Resp 18 10/12/23 07:30 BP 134/65 10/12/23 07:30 Pulse Ox 98 10/12/23 07:30 O2 Del Method Nasal Cannula 10/12/23 07:30 O2 Flow Rate 2 10/12/23 07:30 BMI result Body Mass Index 25.0 Const: General: cooperative, healthy appearing and comfortable Orientation/consciousness: oriented to person, oriented to place and oriented to time HEENT: Head: Yes normal to inspection Neck: Neck: Yes normal visual inspection Carotids: no bruits Chest: Chest palpation & inspection: normal inspection of the chest Resp: Effort & Inspection: normal respiratory effort and able to speak in complete sentences Auscultation: clear to auscultation bilaterally, no crackles, no rales, no rhonchi and no wheezes Cardio: Rate: regular rate Rhythm: regular rhythm Heart sounds: S1 normal heart sound present and S2 normal heart sound present Bruits: no carotid bruits Peripheral pulses: Peripheral pulses 2+ throughout GI: Inspection: Yes normal to inspection Skin: Other: Right grade no significant hematoma Wounds: no wounds Hair: normal Neuro: General: oriented to person, oriented to place and oriented to time Cranial nerves: Yes CN's II-XII intact bilaterally and Yes Normal hearing present Cognition (Neuro): normal cognition Motor exam (neuro): 5/5 motor strength present throughout Extrem: Other: venous exam: No significant superficial varicosities or spider telangiectasias, minimal edema General: No clubbing, No cyanosis and No edema Psych: Appearance: grossly normal Mental Status: mental status grossly normal Speech and movement: Normal speech and movement present Progress Note: A&P Assessment and plan (1) DVT (deep venous thrombosis): Status: Acute Assessment and Plan: In short status post IVC filter placement. Stable from my perspective. Would be ideal to resume anticoagulation when stable. She can follow up with us on an as-needed basis. No need for outpatient follow-up with us. Thank you for allowing us to assist in her care. Time Spent With Patient Time: Total time managing care of this patient today ____ minutes. Procedures Date of Service Date of Service: 10/12/23 Quality Stroke Does the patient have a stroke diagnosis?: No VTE Prior VTE?: Yes VTE Risk Level:: Medical - moderate - high VTE Device Contraindication: Procedure Contraindicated VTE Drug Contraindication: Treatment Not Indicated
--- NOTE | 2023-10-12 10:17 | MHC.CM.PN ---
Per ROUNDS discussion, Patient is not yet medically cleared for dc (IV Dilaudid today, IV Vanco, s/p IVC Filter); LTC VS return home/resume services is the tentative plan. CM will follow.
--- NOTE | 2023-10-12 10:28 | HO.ADDICTCON ---
History of Present Illness Date of Service: 10/12/2022 Chief Complaint: Symptomatic Anemia Reason for Consult: +UDS (cocaone, fent, opi) Requesting physician: Prabhakar Justice Discussed with referring provider: Yes Sources of Information: patient interviewed and chart reviewed HPI Narrative: Patient is a 73 year old female currently medically admitted with symptomatic anemia, DVT and bacteremia. Consult requested as patient had a +UDS (cocaine, fentanyl and opiates). Chart reviewed and previous notes show that patient presented with +UDS, however always denied use and declined to speak any further with Recovery support team. Today, patient seen in room 452, awake, alert, laying in bed. Interview conducted in [place]. Initially patient denied substance use, however after a few minutes, stated, Ok, I don't want to lie anymore, I using again because I have so much pain . She reports that she has been using for the last several months. Using btwn 1-2 bags every 2 days IN. She states that drugs are delivered to her. She currently lives with a friend and her ONION TIER lives next door. She reports last use was 1 or days before admission on the . Discussed starting MOUD (methadone) for her opiod use and patient agreeable. Reports she had been on methadone many years ago. She appeared to be uncomfortable, although hard to tell how much was related to withdrawal and how much was related to pain in her shoulder. Review of Systems Constitutional: Reports body ache(s) and Reports malaise Diagnostics Vital Signs (24Hr): Vital Signs - 24 hr 10/11/23 11:52 10/11/23 15:53 10/11/23 19:38 Temperature 98.7 F 98.7 F 97.6 F Pulse Rate 97 99 104 H Respiratory Rate 17 17 20 Blood Pressure 119/66 133/71 123/58 L Pulse Oximetry 99 98 99 Oxygen Delivery Method Nasal Cannula Room Air Nasal Cannula Oxygen Flow Rate 2 2 10/11/23 21:42 10/11/23 23:51 10/12/23 03:18 Temperature 96.9 F 98.2 F Pulse Rate 95 100 Respiratory Rate 20 20 18 Blood Pressure 120/63 126/68 Pulse Oximetry 96 97 Oxygen Delivery Method Nasal Cannula Nasal Cannula Oxygen Flow Rate 2 2 10/12/23 07:30 Temperature 98.1 F Pulse Rate 103 H Respiratory Rate 18 Blood Pressure 134/65 Pulse Oximetry 98 Oxygen Delivery Method Nasal Cannula Oxygen Flow Rate 2 BMI result Body Mass Index 25.0 Labs 10/11/23 13:57 10/11/23 17:13 Labs: Laboratory Results - last 48 hr 10/09/23 10/10/23 10/10/23 06:16 10:29 14:50 Hgb Hct Plt Count Sodium Potassium Chloride Carbon Dioxide Anion Gap BUN Creatinine Estim Creat Clear Calc Estimated GFR Random Glucose Calcium C-React Prot High Sens >10.0 H Stool Occult Blood POSITIVE Random Vancomycin Influenza Type A (PCR) NEGATIVE Influenza Type B (PCR) NEGATIVE RSV RNA Qual (PCR) NEGATIVE SARS-CoV-2 RNA (RT-PCR) NEGATIVE 10/11/23 10/11/23 13:57 17:13 Hgb 8.2 L Hct 25.7 L Plt Count 47 L Sodium 135 Potassium 3.1 L Chloride 105 Carbon Dioxide 23 Anion Gap 10 L BUN 31 H Creatinine 0.85 0.79 Estim Creat Clear Calc 54.7 58.7 Estimated GFR > 60 > 60 Random Glucose 116 H Calcium 7.2 L D C-React Prot High Sens Stool Occult Blood Random Vancomycin 13.1 L Influenza Type A (PCR) Influenza Type B (PCR) RSV RNA Qual (PCR) SARS-CoV-2 RNA (RT-PCR) Imaging Radiology Impressions: ITS Impressions Head CT 10/09/23 11:26 IMPRESSION: 1. No acute intracranial process seen. 2. Chronic bilateral maxillary and left middle ethmoid sinus inflammatory changes. Shoulder CT 10/11/23 14:39 IMPRESSION: 1. Absence of the distal clavicle as well as attenuation and fragmentation of the acromion is redemonstrated, similar when compared to the radiographs dated 08/18/2023. Focal erosion/cortical defect at the anteromedial aspect of the humeral head measuring up to 1.9 cm in ML dimension. It is unclear if this is present on the prior radiographs. 2. Large glenohumeral joint effusion with a lobulated extension along the anterosuperior aspect of the joint measuring up to 3.9 cm and likely corresponding to the patient's reported lump. This measures as simple fluid signal and is likely related to the joint space. Findings could indicate an infectious or inflammatory arthropathy in the appropriate clinical setting. 3. Moderate glenohumeral osteoarthritis. Superior subluxation of the humeral head indicating underlying rotator cuff tendon tears. Evaluation of the rotator cuff tendons severely limited on CT examination. 4. Patchy areas of scarring and nodularity within the right lung with evaluation significantly limited due to respiratory motion. Right middle lobe opacification with air bronchograms and peripheral cystic change. These findings appear new when compared to the CT thoracic spine dated 08/19/2023. Dedicated CT chest could help further evaluate. Mental Status Exam Mental Status Exam Level of Consciousness: Awake and Appropriate Patient Behavior: Appropriate Mood Description: Anxious Affect Description: Anxious Speech Pattern: Clear Medications Medications Current Medications Acetaminophen (Acetaminophen 325 Mg Tablet) 975 mg PO Q6H PRN PRN Reason: Pain, Severe (Pain Scale 7-10) Last Admin: 10/12/23 05:03 Dose: 975 mg Albuterol Sulfate (Albuterol Sulfate (0.083%) 2.5 Mg/3 Ml Vial.Neb) 2.5 mg INHALE Q4H PRN PRN Reason: Shortness Of Breath Or Wheezing Albuterol Sulfate (Albuterol Sulfate 90 Mcg 8 Gm Inhaler) 2 puff INHALE Q4H PRN PRN Reason: Shortness Of Breath Or Wheezing Fluticasone Propionate (Fluticasone Propionate 250 Mcg Blst.W.Dev) 1 puff INHALE RBID [facility] Last Admin: 10/12/23 07:39 Dose: Not Given Hydromorphone HCl (Hydromorphone Hcl 1 Mg/Ml Syringe) 0.5 mg IVPUSH Q4H PRN; Protocol PRN Reason: Pain, Severe (Pain Scale 7-10) Last Admin: 10/12/23 05:04 Dose: 0.5 mg Vancomycin HCl 1,250 mg/ (Sodium Chloride) 250 mls @ 166.667 mls/hr IV Q24H [facility] Last Infusion: 10/11/23 19:52 Dose: Infused Methadone HCl (Methadone Hcl 20 Mg/2 Ml Oral.Conc) 10 mg PO ONCE ONE Stop: 10/12/23 10:26 Montelukast Sodium (Montelukast Sodium 10 Mg Tablet) 10 mg PO DAILY [facility] Last Admin: 10/12/23 08:13 Dose: 10 mg Pharmacy Consult (Consult Rx Vancomycin Dosing) 1 each MISCELLANE DAILY PRN PRN Reason: Consult order Sodium Chloride (0.9 % Sodium Chloride Flush 3 Ml Syringe) 3 ml IVFLUSH QSHIFT [facility] Last Admin: 10/12/23 08:13 Dose: 3 ml Tramadol HCl (Tramadol Hcl 50 Mg Tablet) 50 mg PO Q4H PRN PRN Reason: Pain, Severe (Pain Scale 7-10) Last Admin: 10/12/23 08:13 Dose: 50 mg Vitamin D (Cholecalciferol (Vitamin D3) 25 Mcg Tablet) 25 mcg PO DAILY [facility] Last Admin: 10/12/23 08:13 Dose: 25 mcg Allergies Allergies Allergy/AdvReac Type Severity Reaction Status Date / Time cephalexin [From Keflex] Allergy Severe HIVES Verified 08/15/23 19:19 clindamycin [Clindamycin] Allergy Severe HIVES Verified 08/15/23 19:19 doxycycline [Doxycycline] Allergy Severe HIVES Verified 08/15/23 19:19 erythromycin base Allergy Severe HIVES Verified 08/15/23 19:20 [Erythromycin Base] levofloxacin [From Levaquin] Allergy Severe THROAT Verified 08/15/23 19:19 TIGHTENS nitrofurantoin Allergy Severe HIVES Verified 08/15/23 19:19 [From Macrobid] Penicillins Allergy Severe HIVES Verified 08/15/23 19:19 aspirin Allergy Unknown Hives Verified 08/15/23 19:19 linezolid [From ZYVOX] Allergy Unknown UNKNOWN Verified 08/15/23 19:19 Sulfa (Sulfonamide Allergy Unknown HIVES Verified 08/15/23 19:19 Antibiotics) [SULFA (SULFONAMIDE ANTIBIOTICS)] sulfacetamide Allergy Unknown Hives Verified 08/15/23 19:19 Erythromycin Allergy Unknown Hives Uncoded 04/22/23 06:01 seafood/shellfish Allergy Unknown Facial Uncoded 04/22/23 06:01 Swelling Sulfacet-R Allergy Unknown Hives Uncoded 04/22/23 06:01 Assessment & Plan Assessment & Plan (1) Opioid use disorder: Status: Acute Code(s): F11.90 - Opioid use, unspecified, uncomplicated Assessment and Plan: methadone 10mg X1--tolerated dose. Seen by this quality analyst/technical writer several hours after dose administered and she was inquiring why dose was so low. additional 10mg methadone ordered for this evening. Avoid giving at the same time as pain medications --high risk for respiratory depression methadone 20mg in AM monitor for oversedation small engine technician to follow up in AM to reassess. Total time managing care of this patient today _45___ minutes. [facility] Past Medical History Medical History (Updated 10/12/23 @ 11:23 by Ciara Zapata CNP) JOE (acute kidney injury) Left against medical advice Bacteremia Chronic anemia MRSA cellulitis Asthma Legally blind Social History Social History Household Members: Family and Friend(s) Housing: Apartment Do you presently have visiting nurse or other home services: Yes Unable to assess alcohol history related to: Unknown Alcohol intake: former Patient Tobacco Use Status: Never used Tobacco e-Cigarette/Vaping Use: Former Use Second Hand Smoke Exposure: No Substance Use Type: Heroin service: No
[2023-10-12] MEDS: methADONE HCl 20 MG/2 ML ORAL.CONC 10 MG PO ×2 (10:47→18:10)
[2023-10-12 11:24] VITALS: BP 127/78; PULSE 95; RESP 18; TEMP 36.3; O2SAT 98
--- NOTE | 2023-10-12 12:10 | MHC.CLN ---
F/U PT WITH INCREASED NUTRITION RISK R/T PRESSURE INJURY FAMILIAR FROM PREVIOUS ADMISSION PO INTAKE 50% X1 MEAL DIET RX: REGULAR -APPROPRIATE RECOMMEND ADDING ENSURE MAX BID TO PROMOTE WOUND HEALING SUPP TO PROVIDE 300KCALS, 60G PROTEIN MONITOR PO INTAKE AND ENCOURAGE SUPPLEMENT
--- NOTE | 2023-10-12 14:47 | HO.PM.IMPN ---
Subjective Subjective Date of Service: 10/12/23 Interval History: gram positive bacteremia and anemia/thrombocytopenia Review of Systems no fever or cough says has bump on shoulder from unclear duration ,also has pain Physical Exam Vital Signs: Vital Signs: Last Vital Signs Temp 97.4 F 10/12/23 11:24 Pulse 95 10/12/23 11:24 Resp 18 10/12/23 11:24 BP 127/78 10/12/23 11:24 Pulse Ox 98 10/12/23 11:24 O2 Del Method Nasal Cannula 10/12/23 11:24 O2 Flow Rate 2 10/12/23 11:24 BMI result Body Mass Index 25.0 Appearance: Alert.? Oriented,no apparent distress. cvs: [id number], [id number] . res: clear to auscultation ,no rhonchii or wheezing. abd: no rebound or guarding ,nt, bs present. ext pulses present , no cyanosis.right shoulder bump -has flacutation ,pain neuro: axo3 , nonfocal. Objective Data Active Medications Acetaminophen (Acetaminophen 325 Mg Tablet) 975 mg PO Q6H PRN PRN Reason: Pain, Severe (Pain Scale 7-10) Last Admin: 10/12/23 12:29 Dose: 975 mg Documented By: JOSE Albuterol Sulfate (Albuterol Sulfate (0.083%) 2.5 Mg/3 Ml Vial.Neb) 2.5 mg INHALE Q4H PRN PRN Reason: Shortness Of Breath Or Wheezing Albuterol Sulfate (Albuterol Sulfate 90 Mcg 8 Gm Inhaler) 2 puff INHALE Q4H PRN PRN Reason: Shortness Of Breath Or Wheezing Fluticasone Propionate (Fluticasone Propionate 250 Mcg Blst.W.Dev) 1 puff INHALE RBID GETACHEW Last Admin: 10/12/23 07:39 Dose: Not Given Documented By: ARMANI Non-Admin Reason: Patient Refused Hydromorphone HCl (Hydromorphone Hcl 1 Mg/Ml Syringe) 0.5 mg IVPUSH Q4H PRN; Protocol PRN Reason: Pain, Severe (Pain Scale 7-10) Last Admin: 10/12/23 12:29 Dose: 0.5 mg Documented By: JOSE Vancomycin HCl 1,250 mg/ (Sodium Chloride) 250 mls @ 166.667 mls/hr IV Q24H [facility] Last Infusion: 10/11/23 19:52 Dose: Infused Documented By: BORA Montelukast Sodium (Montelukast Sodium 10 Mg Tablet) 10 mg PO DAILY [facility] Last Admin: 10/12/23 08:13 Dose: 10 mg Documented By: JOSE Pharmacy Consult (Consult Rx Vancomycin Dosing) 1 each MISCELLANE DAILY PRN PRN Reason: Consult order Sodium Chloride (0.9 % Sodium Chloride Flush 3 Ml Syringe) 3 ml IVFLUSH QSHIFT [facility] Last Admin: 10/12/23 08:13 Dose: 3 ml Documented By: JOSE Tramadol HCl (Tramadol Hcl 50 Mg Tablet) 50 mg PO Q4H PRN PRN Reason: Pain, Severe (Pain Scale 7-10) Last Admin: 10/12/23 08:13 Dose: 50 mg Documented By: JOSE Vitamin D (Cholecalciferol (Vitamin D3) 25 Mcg Tablet) 25 mcg PO DAILY [facility] Last Admin: 10/12/23 08:13 Dose: 25 mcg Documented By: JOSE Labs 10/11/23 13:57 10/11/23 17:13 Labs: Laboratory Results - last 24 hr 10/11/23 17:13 Estim Creat Clear Calc 58.7 Estimated GFR > 60 Random Vancomycin 13.1 L Assessment and Plan (1) Opioid use disorder: Status: Acute (2) Abscess of right shoulder: Status: Acute (3) Bacteremia due to Gram-positive bacteria: Status: Acute Plan 73 y/o F with COPD on home O2 (2L/min NC), hepatitis C, IV drug use, MRSA abscesses,?C.diff infection, E. coli colitis, osteomyelitis (humerus, clavicle, and scapula) with MSSA bacteremia (June 2023), coccyx chronic ulcer, occlusive bilat DVT, anemia and PUD. Symptomatic anemia, suspecting GI blood loss. Patient has PUD and has been taking multiple doses of motrin daily for the last few days. She also takes Eliquis. According to previous notes pt has been refusing endoscopies. h/h:8.2/25.7(s/p 2 prbc on 10/09/23). Gi eval: Hold on EGD and colonoscopy for the meantime given her fraility and bactermia, ppi,moniter h/h for 24-48 hrs ,d/w hematology/Gi -patient has anemia/thrombocytopnia -currently hold eliquis. moniter h/h closely. Acute kidney injury. Likely secondary to #1 and use of NSAIDs. received PRBC transfusion on IV fluids. resolved, off ivf. Generalized pain, chronic. Dilaudid IV as needed. ch repsiratory failure sec Chronic obstructive pulmonary disease, not exacerbation. Continue supplemental oxygen to keep oxygen saturation above 90%, nebs prn, Continue montelukast . Gram positive bacteremia(Staph aureus bacteremia ) : Recent hospitalization secondary to MRSA bacteremia. Patient left AMA and IV abx tx was not completed. lactic acid normal,again has Mrsa bacteremia, added TTE . continue vancomycin. Bilateral occlusive deep venous thrombosis. s/p ivc filter, Eliquis on hold-please see above (anemia/severe thrombocytopenia). History of osteomyelitis (humerus, clavicle and scapula). CRP>10. has mrsa bacteremia right upper shoulder pain/bump right shoulder ct scan:Large glenohumeral joint effusion with a lobulated extension along the anterosuperior aspect of the joint measuring up to 3.9 cm and likely corresponding to the patient's reported lump. ortho eval- xray and ct scan consistent with rtc arthropathy,no evidence of abscess formation no acute ortho intervention recomended. Chronic decubitus ulcer, coccyx. Healing: added wound care consult. History of hepatitic C. : mild elevated bilirubin in steting of hepatitic C. will check hiv ,hapatitis c viralload d/w hematology :thrombocytopenia also mutlifactroial -hepatitis c-possible liver dis /also has mrsa bacteremia History of IVDU. claims not using IV drugs.but utox positive for fentanyl/coacaine additction consult-added methadone. Ongoing hospitlisation need : bacteremia -need Iv vanco ,renal function/electrolytes monitering ,symptomatic anemia /thrombocytopenia -requiring transfusion-need h/h monitering , need acrdiac workup for IE,also need expert consultation for right shoulder pain/bump. Quality Stroke Does the patient have a stroke diagnosis?: No VTE Prior VTE?: Yes VTE Risk Level:: Medical - moderate - high VTE Device Contraindication: Procedure Contraindicated VTE Drug Contraindication: Treatment Not Indicated
[2023-10-12 15:44] VITALS: BP 132/63; PULSE 94; RESP 18; TEMP 36.7; O2SAT 100
[2023-10-12] MEDS: vancomycin HCL 1,250 MG in 0.9 % Sodium Chloride 250 ML 166.67 MG IV (18:10)
[2023-10-12 19:23] VITALS: BP 138/66; PULSE 99; RESP 18; TEMP 37.1; O2SAT 99
[2023-10-12 23:44] VITALS: BP 138/74; PULSE 96; RESP 18; TEMP 36.4; O2SAT 99
[2023-10-13] VITALS (7 sets, daily range): BP systolic 127–142; BP diastolic 66–87; PULSE 54–100; RESP 16–20; TEMP 36.2–37; O2SAT 92–100
[2023-10-13] MEDS: traMADoL HCL 50 MG TABLET PO ×4 (00:12→16:38)
[2023-10-13] MEDS: HYDROmorphone HCl 1 MG/ML SYRINGE 0.5 MG IVPUSH ×3 (03:54→21:53)
[2023-10-13] MEDS: Fluticasone Propionate 250 MCG BLST.W.DEV 1 PUFF INHALE ×2 (07:39→19:37)
[2023-10-13] MEDS: Acetaminophen 325 MG TABLET 975 MG PO (08:10)
[2023-10-13] MEDS: Montelukast Sodium 10 MG TABLET PO (08:10)
[2023-10-13] MEDS: Cholecalciferol (Vitamin D3) 25 MCG TABLET PO (08:10)
[2023-10-13] MEDS: methADONE HCl 20 MG/2 ML ORAL.CONC PO (08:10)
[2023-10-13] MEDS: 0.9 % Sodium Chloride Flush 3 ML SYRINGE IVFLUSH ×3 (08:10→21:54)
[2023-10-13 09:44] LABS: Hematocrit 22.8 % (37.0-47.0); Hemoglobin 7.1 g/dl (12.0-16.0); Mean Corpuscular HGB Conc 31.1 g/dl (31.0-35.0); Mean Corpuscular Hemoglobin 31.6 pg (27.0-33.0); Mean Corpuscular Volume 101.3 fL (80.0-98.0); Mean Platelet Volume 11.8 fL (9.4-12.3); Red Blood Count 2.25 X10*6/uL (4.20-5.50); Red Cell Distribution Width 18.3 % (11.0-16.0)
[2023-10-13 09:51] LABS: Platelet Count 87 X10*3/uL (160-400)
[2023-10-13 09:59] LABS: Anion Gap 10 (12-20); Blood Urea Nitrogen 21 mg/dL (9-16); C Reactive Protein 16.91 mg/dL (< or = 0.50); Calcium 7.6 mg/dL (8.4-10.2); Carbon Dioxide 24 mmol/L (22-29); Chloride 104 mmol/L (96-108); Creatinine Clr Calc Pharmacy 58.7; Estimated Glomerular Filt Rate > 60; Glucose Random 122 mg/dL (60-115); Potassium 3.6 mmol/L (3.3-5.1); Sodium 134 mmol/L (135-145)
[2023-10-13 10:31] LABS: Erythrocyte Sedimentation Rate 85 MM/HR (0-20)
[2023-10-13] MEDS: HYDROmorphone HCl 0.5 MG/0.5 ML SYRINGE IVPUSH (12:24)
--- NOTE | 2023-10-13 14:06 | P.PNIM_ITS ---
Subjective Subjective Date of Service: 10/13/23 Interval History: gram positive bacteremia and anemia/thrombocytopenia Review of Systems has shoulder bump area pain no fevers no new events no sob or cough Physical Exam 2 Vital Signs: Vital Signs: Last Vital Signs Temp 97.6 F 10/13/23 11:01 Pulse 86 10/13/23 11:01 Resp 18 10/13/23 11:01 BP 128/71 10/13/23 11:01 Pulse Ox 98 10/13/23 11:01 O2 Del Method Nasal Cannula 10/13/23 11:01 O2 Flow Rate 2 10/13/23 11:01 BMI result Body Mass Index 25.0 Appearance: Alert.? Oriented,no apparent distress. cvs: rrr, [id number] . res: clear to auscultation ,no rhonchii or wheezing. abd: no rebound or guarding ,nt, bs present. ext pulses present , no cyanosis.right shoulder bump -similar to yesterday. neuro: axo3 , nonfocal. Objective Data Active Medications Acetaminophen (Acetaminophen 325 Mg Tablet) 975 mg PO Q6H PRN PRN Reason: Pain, Severe (Pain Scale 7-10) Last Admin: 10/13/23 08:10 Dose: 975 mg Documented By: JOSE Albuterol Sulfate (Albuterol Sulfate (0.083%) 2.5 Mg/3 Ml Vial.Neb) 2.5 mg INHALE Q4H PRN PRN Reason: Shortness Of Breath Or Wheezing Albuterol Sulfate (Albuterol Sulfate 90 Mcg 8 Gm Inhaler) 2 puff INHALE Q4H PRN PRN Reason: Shortness Of Breath Or Wheezing Fluticasone Propionate (Fluticasone Propionate 250 Mcg Blst.W.Dev) 1 puff INHALE RBID [facility] Last Admin: 10/13/23 07:39 Dose: 1 puff Documented By: MARIA LUISA Hydromorphone HCl (Hydromorphone Hcl 1 Mg/Ml Syringe) 0.5 mg IVPUSH Q4H PRN; Protocol PRN Reason: Pain, Severe (Pain Scale 7-10) Last Admin: 10/13/23 03:54 Dose: 0.5 mg Documented By: LEXI Vancomycin HCl 1,250 mg/ (Sodium Chloride) 250 mls @ 166.667 mls/hr IV Q24H [facility] Last Infusion: 10/12/23 20:26 Dose: Infused Documented By: LEXI Methadone HCl (Methadone Hcl 20 Mg/2 Ml Oral.Conc) 20 mg PO DAILY [facility] Last Admin: 10/13/23 08:10 Dose: 20 mg Documented By: JOSE Montelukast Sodium (Montelukast Sodium 10 Mg Tablet) 10 mg PO DAILY [facility] Last Admin: 10/13/23 08:10 Dose: 10 mg Documented By: JOSE Pharmacy Consult (Consult Rx Vancomycin Dosing) 1 each MISCELLANE DAILY PRN PRN Reason: Consult order Sodium Chloride (0.9 % Sodium Chloride Flush 3 Ml Syringe) 3 ml IVFLUSH QSHIFT [facility] Last Admin: 10/13/23 08:10 Dose: 3 ml Documented By: JOSE Tramadol HCl (Tramadol Hcl 50 Mg Tablet) 50 mg PO Q4H PRN PRN Reason: Pain, Severe (Pain Scale 7-10) Last Admin: 10/13/23 12:25 Dose: 50 mg Documented By: JOSE Vitamin D (Cholecalciferol (Vitamin D3) 25 Mcg Tablet) 25 mcg PO DAILY [facility] Last Admin: 10/13/23 08:10 Dose: 25 mcg Documented By: JOSE Labs 10/13/23 09:33 10/13/23 09:33 Labs: Laboratory Results - last 24 hr 10/13/23 10/13/23 10/13/23 09:33 09:33 09:33 MCV 101.3 H Cancelled MCH 31.6 Cancelled MCHC 31.1 RDW Plt Count MPV Absolute Nucleated RBC Nucleated RBC % (auto) ESR Anion Gap Estim Creat Clear Calc Estimated GFR Random Glucose Calcium C-Reactive Protein Hep C Viral Load Hep C Viral Load Log HIV 1&2 Ab/P24 Ag 4thGn 10/13/23 10/13/23 10/13/23 09:33 09:33 09:33 MCV MCH MCHC Cancelled RDW 18.3 H Cancelled Plt Count 87 L D Cancelled MPV 11.8 Absolute Nucleated RBC Nucleated RBC % (auto) ESR Anion Gap Estim Creat Clear Calc Estimated GFR Random Glucose Calcium C-Reactive Protein Hep C Viral Load Hep C Viral Load Log HIV 1&2 Ab/P24 Ag 4thGn 10/13/23 10/13/23 10/13/23 09:33 09:33 09:33 MCV MCH MCHC RDW Plt Count MPV Cancelled Absolute Nucleated RBC 0.000 Cancelled Nucleated RBC % (auto) 0.0 Cancelled ESR 85 H Anion Gap 10 L Estim Creat Clear Calc Cancelled Estimated GFR Random Glucose Calcium C-Reactive Protein Hep C Viral Load Hep C Viral Load Log HIV 1&2 Ab/P24 Ag 4thGn 10/13/23 10/13/23 10/13/23 09:33 09:33 09:33 MCV MCH MCHC RDW Plt Count MPV Absolute Nucleated RBC Nucleated RBC % (auto) ESR Anion Gap Estim Creat Clear Calc Cancelled 58.7 Estimated GFR Cancelled Cancelled Random Glucose Calcium C-Reactive Protein Hep C Viral Load Hep C Viral Load Log HIV 1&2 Ab/P24 Ag 4thGn 10/13/23 10/13/23 09:33 09:33 MCV MCH MCHC RDW Plt Count MPV Absolute Nucleated RBC Nucleated RBC % (auto) ESR Anion Gap Estim Creat Clear Calc Estimated GFR > 60 Random Glucose 122 H Calcium 7.6 L C-Reactive Protein Cancelled 16.91 H Hep C Viral Load Cancelled Hep C Viral Load Log Cancelled HIV 1&2 Ab/P24 Ag 4thGn Cancelled Assessment and Plan (1) Bacteremia due to Gram-positive bacteria: Status: Acute (2) Acute on chronic anemia: Status: Chronic Plan 73 y/o F with COPD on home O2 (2L/min NC), hepatitis C, IV drug use, MRSA abscesses,?C.diff infection, E. coli colitis, osteomyelitis (humerus, clavicle, and scapula) with MSSA bacteremia (June 2023), coccyx chronic ulcer, occlusive bilat DVT, anemia and PUD. Symptomatic anemia, suspecting GI blood loss. Patient has PUD and has been taking multiple doses of motrin daily for the last few days. She also takes Eliquis. According to previous notes pt has been refusing endoscopies. h/h:chronic mostly between 7-8 range ,moniter h/h closely. thrombocytopenia improving from 47-87 Gi eval: Hold on EGD and colonoscopy for the meantime given her fraility and bactermia, ppi,moniter h/h for 24-48 hrs ,d/w hematology/Gi -patient has anemia/thrombocytopnia -currently hold eliquis. moniter h/h closely. Acute kidney injury. Likely secondary to #1 and use of NSAIDs. received PRBC transfusion on IV fluids. resolved, off ivf. Generalized pain, chronic. Dilaudid IV as needed. ch repsiratory failure sec Chronic obstructive pulmonary disease, not exacerbation. Continue supplemental oxygen to keep oxygen saturation above 90%, nebs prn, Continue montelukast . Gram positive bacteremia(Staph aureus bacteremia ) : Recent hospitalization secondary to MRSA bacteremia. Patient left AMA and IV abx tx was not completed. lactic acid normal,again has Mrsa bacteremia, TTE : ef 55-60%, otherwise unchnaged from previous study. vanco trough is 13.1 (on 10/11/23) continue vancomycin. Bilateral occlusive deep venous thrombosis. s/p ivc filter, Eliquis on hold-please see above (anemia/severe thrombocytopenia). History of osteomyelitis (humerus, clavicle and scapula). CRP>10. has mrsa bacteremia right upper shoulder pain/bump right shoulder ct scan:Large glenohumeral joint effusion with a lobulated extension along the anterosuperior aspect of the joint measuring up to 3.9 cm and likely corresponding to the patient's reported lump. ortho eval- xray and ct scan consistent with rtc arthropathy,no evidence of abscess formation no acute ortho intervention recomended. will consider adding ct guided drainge if does not improve. Chronic decubitus ulcer, coccyx. Healing: added wound care consult. History of hepatitic C. : mild elevated bilirubin in steting of hepatitic C. will check hiv ,hapatitis c viralload pending d/w hematology :thrombocytopenia also mutlifactroial -hepatitis c-possible liver dis /also has mrsa bacteremia History of IVDU. claims not using IV drugs.but utox positive for fentanyl/coacaine additction consult-continue methadone. Ongoing hospitlisation need : bacteremia -need Iv vanco ,renal function/electrolytes monitering ,symptomatic anemia /thrombocytopenia - requiring transfusion-need h/h monitering , need acrdiac workup for IE,also need expert consultation for right shoulder pain/bump. Quality Stroke Does the patient have a stroke diagnosis?: No VTE Prior VTE?: Yes VTE Risk Level:: Medical - moderate - high VTE Device Contraindication: Procedure Contraindicated VTE Drug Contraindication: Treatment Not Indicated
[2023-10-13 15:10] LABS: Hematocrit 22.1 % (37.0-47.0)
[2023-10-13 16:51] LABS: Glucose, Whole Blood 97 mg/dL (60-115)
[2023-10-13 18:04] LABS: Vancomycin Random 15.8 mcg/mL (15-20)
[2023-10-13] MEDS: methADONE HCl 20 MG/2 ML ORAL.CONC 10 MG PO (18:16)
[2023-10-13] MEDS: vancomycin HCL 1,250 MG in 0.9 % Sodium Chloride 250 ML 166.67 MG IV (18:16)
[2023-10-14] VITALS (12 sets, daily range): BP systolic 112–130; BP diastolic 62–71; PULSE 82–89; RESP 16–20; TEMP 35.8–36.7; O2SAT 93–99
[2023-10-14] MEDS: traMADoL HCL 50 MG TABLET PO ×3 (00:42→17:01)
[2023-10-14] MEDS: Acetaminophen 325 MG TABLET 975 MG PO ×3 (00:43→17:00)
[2023-10-14 04:44] LABS: HIV AB/AG Nonreactive (Nonreactive); HIV Num 1 0.04 S/CO (0.00-0.99)
[2023-10-14] MEDS: HYDROmorphone HCl 1 MG/ML SYRINGE 0.5 MG IVPUSH ×3 (05:43→22:35)
[2023-10-14 07:36] LABS: Anion Gap 8 (12-20); Blood Urea Nitrogen 17 mg/dL (9-16); Calcium 7.6 mg/dL (8.4-10.2); Carbon Dioxide 26 mmol/L (22-29); Chloride 104 mmol/L (96-108); Creatinine Clr Calc Pharmacy 65.4; Estimated Glomerular Filt Rate > 60; Glucose Random 93 mg/dL (60-115); Potassium 3.8 mmol/L (3.3-5.1); Sodium 134 mmol/L (135-145)
[2023-10-14] MEDS: Fluticasone Propionate 250 MCG BLST.W.DEV 1 PUFF INHALE ×2 (07:37→19:58)
[2023-10-14] MEDS: Cholecalciferol (Vitamin D3) 25 MCG TABLET PO (08:24)
[2023-10-14] MEDS: methADONE HCl 20 MG/2 ML ORAL.CONC 10 MG PO (08:24)
[2023-10-14] MEDS: 0.9 % Sodium Chloride Flush 3 ML SYRINGE IVFLUSH ×2 (08:24→14:46)
[2023-10-14] MEDS: Montelukast Sodium 10 MG TABLET PO (08:24)
[2023-10-14] MEDS: methADONE HCl 20 MG/2 ML ORAL.CONC PO (08:24)
[2023-10-14 08:44] LABS: Hemoglobin 6.8 g/dl (12.0-16.0)
--- NOTE | 2023-10-14 12:46 | PM.PNORT ---
Subjective Subjective Date of Service: 10/14/23 Interval history: Patient laying in bed comfortably Continues to express right shoulder pain Reports right hand pain Physical Exam Vital Signs: Vital Signs: Last Vital Signs Temp 97.7 F 10/14/23 10:59 Pulse 84 10/14/23 10:59 Resp 20 10/14/23 10:59 BP 126/62 10/14/23 10:59 Pulse Ox 97 10/14/23 10:59 O2 Del Method Nasal Cannula 10/14/23 10:59 O2 Flow Rate 2 10/14/23 10:59 BMI result Body Mass Index 25.0 Const: General: cooperative, healthy appearing and comfortable Extrem: Other: Right shoulder with tennis ball sized lump over the ac joint. This is soft. No area of drainage. There is evidence of old surgical scar. Mild discomfort to palpation. Procedures Date of Service Date of Service: 10/14/23 Progress Note: A&P Assessment and plan (1) Abscess of right shoulder: Status: Acute Assessment and Plan: Case readdressed with Dr. Edgar Findings on xray and ct scan consistent with rtc arthropathy - [place] Lesion no evidence of abscess formation non surgical intervention required at this time as it does not appear infected (2) Bacteremia due to Gram-positive bacteria: Status: Acute Time Spent With Patient Time: Total time managing care of this patient today ____ minutes. Quality Stroke Does the patient have a stroke diagnosis?: No VTE Prior VTE?: Yes VTE Risk Level:: Medical - moderate - high VTE Device Contraindication: Procedure Contraindicated VTE Drug Contraindication: Treatment Not Indicated
[2023-10-14 14:20] LABS: Platelet Count 106 X10*3/uL (160-400); White Blood Count 13.7 X10*3/uL (4.8-10.8)
--- NOTE | 2023-10-14 15:19 | HO.PM.IMPN ---
Subjective Subjective Date of Service: 10/14/23 Interval History: anemia ,mrsa bacteremia possible shoulder collection vs abcess -self draining Review of Systems no fever has arm shoulder pain Physical Exam Vital Signs: Vital Signs: Last Vital Signs Temp 97.7 F 10/14/23 10:59 Pulse 84 10/14/23 10:59 Resp 20 10/14/23 10:59 BP 126/62 10/14/23 10:59 Pulse Ox 97 10/14/23 10:59 O2 Del Method Nasal Cannula 10/14/23 10:59 O2 Flow Rate 2 10/14/23 10:59 BMI result Body Mass Index 25.0 Appearance: Alert.? Oriented,no apparent distress. cvs: rrr, [id number] . res: clear to auscultation ,no rhonchii or wheezing. abd: no rebound or guarding ,nt, bs present. ext pulses present , no cyanosis.right shoulder bump -draining copious yellowish fluids neuro: axo3 , nonfocal Objective Data Active Medications Acetaminophen (Acetaminophen 325 Mg Tablet) 975 mg PO Q6H PRN PRN Reason: Pain, Severe (Pain Scale 7-10) Last Admin: 10/14/23 08:24 Dose: 975 mg Documented By: JOSE Albuterol Sulfate (Albuterol Sulfate (0.083%) 2.5 Mg/3 Ml Vial.Neb) 2.5 mg INHALE Q4H PRN PRN Reason: Shortness Of Breath Or Wheezing Albuterol Sulfate (Albuterol Sulfate 90 Mcg 8 Gm Inhaler) 2 puff INHALE Q4H PRN PRN Reason: Shortness Of Breath Or Wheezing Fluticasone Propionate (Fluticasone Propionate 250 Mcg Blst.W.Dev) 1 puff INHALE RBID [facility] Last Admin: 10/14/23 07:37 Dose: 1 puff Documented By: MARIA LUISA Hydromorphone HCl (Hydromorphone Hcl 1 Mg/Ml Syringe) 0.5 mg IVPUSH Q4H PRN; Protocol PRN Reason: Pain, Severe (Pain Scale 7-10) Last Admin: 10/14/23 14:46 Dose: 0.5 mg Documented By: VIVEK Vancomycin HCl 1,250 mg/ (Sodium Chloride) 250 mls @ 166.667 mls/hr IV Q24H [facility] Last Infusion: 10/13/23 20:05 Dose: Infused Documented By: LEXI Methadone HCl (Methadone Hcl 20 Mg/2 Ml Oral.Conc) 20 mg PO DAILY [facility] Last Admin: 10/14/23 08:24 Dose: 20 mg Documented By: JOSE Methadone HCl (Methadone Hcl 20 Mg/2 Ml Oral.Conc) 10 mg PO DAILY [facility] Last Admin: 10/14/23 08:24 Dose: 10 mg Documented By: JOSE Montelukast Sodium (Montelukast Sodium 10 Mg Tablet) 10 mg PO DAILY [facility] Last Admin: 10/14/23 08:24 Dose: 10 mg Documented By: JOSE Pharmacy Consult (Consult Rx Vancomycin Dosing) 1 each MISCELLANE DAILY PRN PRN Reason: Consult order Sodium Chloride (0.9 % Sodium Chloride Flush 3 Ml Syringe) 3 ml IVFLUSH QSHIFT [facility] Last Admin: 10/14/23 14:46 Dose: 3 ml Documented By: VIVEK Tramadol HCl (Tramadol Hcl 50 Mg Tablet) 50 mg PO Q4H PRN PRN Reason: Pain, Severe (Pain Scale 7-10) Last Admin: 10/14/23 08:24 Dose: 50 mg Documented By: JOSE Vitamin D (Cholecalciferol (Vitamin D3) 25 Mcg Tablet) 25 mcg PO DAILY [facility] Last Admin: 10/14/23 08:24 Dose: 25 mcg Documented By: JOSE Labs 10/14/23 08:25 10/14/23 06:26 Labs: Laboratory Results - last 24 hr 10/13/23 10/13/23 10/13/23 09:33 16:13 16:55 Plt Count Hold Purple Top Hold Blue Top Anion Gap Estim Creat Clear Calc Estimated GFR POC Glucose 97 Random Glucose Calcium Hold Red Top Hold Yellow Top Random Vancomycin 15.8 HIV 1&2 Ab/P24 Ag 4thGn Nonreactive Blood Type Antibody Screen Crossmatch 10/14/23 10/14/23 06:26 08:25 Plt Count 106 L Hold Purple Top SEE NOTE Hold Blue Top SEE NOTE Anion Gap 8 L Estim Creat Clear Calc 65.4 Estimated GFR > 60 POC Glucose Random Glucose 93 Calcium 7.6 L Hold Red Top See Note Hold Yellow Top See Note Random Vancomycin HIV 1&2 Ab/P24 Ag 4thGn Blood Type AB Positive Antibody Screen NEGATIVE Crossmatch See Detail Microbiology Microbiology Results: Microbiology 10/13/23 09:33 Blood Culture - Preliminary Blood - Venous Prelim: GPC Gram Stain only 10/13/23 09:33 Blood Culture - Preliminary Blood - Venous Prelim: GPC Gram Stain only Assessment and Plan (1) Abscess of right shoulder: Status: Acute (2) Bacteremia due to Gram-positive bacteria: Status: Acute Plan 73 y/o F with COPD on home O2 (2L/min NC), hepatitis C, IV drug use, MRSA abscesses,?C.diff infection, E. coli colitis, osteomyelitis (humerus, clavicle, and scapula) with MSSA bacteremia (June 2023), coccyx chronic ulcer, occlusive bilat DVT, anemia and PUD. Gram positive bacteremia(Staph aureus bacteremia ) : Recent hospitalization secondary to MRSA bacteremia. Patient left AMA and IV abx tx was not completed. lactic acid normal,again has Mrsa bacteremia, TTE : ef 55-60%, otherwise unchnaged from previous study. repeat blood cultures came gram positive cocci in clusters possible shoulder collection (possible abcess? )-self draining ,added cultures vanco trough is 15.8(on 10/11/23) d/w Id fonseca Acute kidney injury. Likely secondary to #1 and use of NSAIDs. another 1 PRBC transfusion today ( second prbc sofar). Generalized pain, chronic. Dilaudid IV as needed. ch repsiratory failure sec Chronic obstructive pulmonary disease, not exacerbation. Continue supplemental oxygen to keep oxygen saturation above 90%, nebs prn, Continue montelukast . Symptomatic anemia, suspecting GI blood loss. Patient has PUD and has been taking multiple doses of motrin daily for the last few days. She also takes Eliquis. According to previous notes pt has been refusing endoscopies. h/h:chronic mostly between 7-8 range ,moniter h/h closely,platlets levels improving received 1 prbc Gi eval: Hold on EGD and colonoscopy for the meantime given her fraility and bactermia, ppi,moniter h/h for 24-48 hrs ,d/w hematology/Gi -patient has anemia/thrombocytopnia -currently hold eliquis. moniter h/h closely. Bilateral occlusive deep venous thrombosis. s/p ivc filter, Eliquis on hold-please see above (anemia/severe thrombocytopenia). History of osteomyelitis (humerus, clavicle and scapula) has mrsa bacteremia right shoulder ct scan:Large glenohumeral joint effusion with a lobulated extension along the anterosuperior aspect of the joint measuring up to 3.9 cm and likely corresponding to the patient's reported lump. right upper shoulder pain/bump-possible shoulder fluid collection vs abcess d/w ortho-continue antibiotics ,moniter clinically ortho will follow up in case need shoulder surgerical intervention. History of hepatitic C. : mild elevated bilirubin in steting of hepatitic C. will check hiv ,hapatitis c viralload pending d/w hematology :thrombocytopenia also mutlifactroial -hepatitis c-possible liver dis /also has mrsa bacteremia History of IVDU. claims not using IV drugs.but utox positive for fentanyl/coacaine additction consult-continue methadone. Chronic decubitus ulcer, coccyx. Healing: added wound care follwoing: Recommendations: 1. Turn and Reposition every 2 hours and as needed for patient comfort.? Use pillows or wedges to support off loading positions. 2. Off Load all bony prominences with use of pillows and heel boots if needed.? Apply Preventative foams where needed. ? 3. Monitor for incontinence and moisture control, use barrier creams when needed for prevention and treatment. 4. Provide adequate and supplemental nutrition. Place Nutrition consult if appropriate. 5. Order or Continue low air loss mattress. 6. Maintain blood glucose levels per Providers orders if applicable. 7. Coccyx and Right Elbow - Cleanse and irrigate with NS, Pat dry.? Apply barrier to periwound, lightly pack with Alginate / Durafiber AG, be sure to leave a wick to easy removal.? Cover with Foam dressing.? Change Daily. 8. Right Inner AC - Cleanse with NS moist gauze allow to dry. Apply cut to size hydrocolloid - change every 3 days. 9. Bilateral Heels - Apply Foam dressing for prevention. Off Load Pressure with boots or pillows. Re-consult wound care Nurse for wound deterioration or wound changes. Ongoing hospitlisation need :possible right shoulder ? abcess /mrsa bacteremia -need Iv antibiotics ,renal function/electrolytes monitering ,symptomatic anemia /thrombocytopenia -requiring transfusion-need h/h monitering , need acrdiac workup for IE,also need expert consultation for right shoulder pain/bump. Quality Stroke Does the patient have a stroke diagnosis?: No VTE Prior VTE?: Yes VTE Risk Level:: Medical - moderate - high VTE Device Contraindication: Procedure Contraindicated VTE Drug Contraindication: Treatment Not Indicated
--- NOTE | 2023-10-14 18:43 | P.PNADD_ITS ---
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 Patient awake and engaged in interview. Reporting significant improvement in sx, and overall affect appears much improved. Expressing gratitude for initiation of treatment for oud--reflecting on her substance use history, including most recent return to use. She reports numerous overdoses in the past. She is involved with the recovery community, unclear how much or how recently. Discussed current methadone dose including PM dose, patient would like to stay with this dosing for now, does note some improvement in quality of sleep, though notes that sleep is often a challenge for her. Review of Systems Constitutional: Reports as per HPI Mental Status Exam Mental Status Exam Patient Appearance: Appropriate Patient Orientation: Person, Place, Time and Situation Level of Consciousness: Awake, Appropriate and Alert Patient Behavior: Appropriate and Talkative Diagnostics Vital Signs (24Hr): Vital Signs - 24 hr 10/13/23 19:52 10/13/23 23:15 10/14/23 03:26 Temperature 97.2 F 97.6 F 97.5 F Pulse Rate 93 91 88 Respiratory Rate 18 18 20 Blood Pressure 130/87 131/67 112/62 Pulse Oximetry 98 100 98 Oxygen Delivery Method Nasal Cannula Nasal Cannula Nasal Cannula Oxygen Flow Rate 2 2 2 10/14/23 07:09 10/14/23 07:40 10/14/23 10:15 Temperature 97.7 F 98.0 F Pulse Rate 89 89 85 Respiratory Rate 20 16 16 Blood Pressure 129/70 118/67 Pulse Oximetry 95 Oxygen Delivery Method Nasal Cannula Oxygen Flow Rate 2 10/14/23 10:30 10/14/23 10:59 10/14/23 16:00 Temperature 98.1 F 97.7 F 96.5 F L Pulse Rate 86 84 82 Respiratory Rate 16 20 18 Blood Pressure 123/71 126/62 126/66 Pulse Oximetry 97 99 Oxygen Delivery Method Nasal Cannula Nasal Cannula Oxygen Flow Rate 2 2 BMI result Body Mass Index 25.0 Labs 10/14/23 08:25 10/14/23 06:26 Labs: Laboratory Results - last 48 hr 10/13/23 10/13/23 10/13/23 09:33 09:33 09:33 WBC 15.0 H Cancelled RBC 2.25 L Cancelled Hgb 7.1 L Hct MCV MCH MCHC RDW Plt Count MPV Absolute Nucleated RBC Nucleated RBC % (auto) ESR Hold Purple Top Hold Blue Top Sodium Potassium Chloride Carbon Dioxide Anion Gap BUN Creatinine Estim Creat Clear Calc Estimated GFR POC Glucose Random Glucose Calcium Total Creatine Kinase C-Reactive Protein Hold Red Top Hold Yellow Top Random Vancomycin Hep C Viral Load Hep C Viral Load Log HIV 1&2 Ab/P24 Ag 4thGn Blood Type Antibody Screen Crossmatch 10/13/23 10/13/23 10/13/23 09:33 09:33 09:33 WBC RBC Hgb Cancelled Hct 22.8 L Cancelled MCV 101.3 H Cancelled MCH 31.6 MCHC RDW Plt Count MPV Absolute Nucleated RBC Nucleated RBC % (auto) ESR Hold Purple Top Hold Blue Top Sodium Potassium Chloride Carbon Dioxide Anion Gap BUN Creatinine Estim Creat Clear Calc Estimated GFR POC Glucose Random Glucose Calcium Total Creatine Kinase C-Reactive Protein Hold Red Top Hold Yellow Top Random Vancomycin Hep C Viral Load Hep C Viral Load Log HIV 1&2 Ab/P24 Ag 4thGn Blood Type Antibody Screen Crossmatch 10/13/23 10/13/23 10/13/23 09:33 09:33 09:33 WBC RBC Hgb Hct MCV MCH Cancelled MCHC 31.1 Cancelled RDW 18.3 H Cancelled Plt Count 87 L D MPV Absolute Nucleated RBC Nucleated RBC % (auto) ESR Hold Purple Top Hold Blue Top Sodium Potassium Chloride Carbon Dioxide Anion Gap BUN Creatinine Estim Creat Clear Calc Estimated GFR POC Glucose Random Glucose Calcium Total Creatine Kinase C-Reactive Protein Hold Red Top Hold Yellow Top Random Vancomycin Hep C Viral Load Hep C Viral Load Log HIV 1&2 Ab/P24 Ag 4thGn Blood Type Antibody Screen Crossmatch 10/13/23 10/13/23 10/13/23 09:33 09:33 09:33 WBC RBC Hgb Hct MCV MCH MCHC RDW Plt Count Cancelled MPV 11.8 Cancelled Absolute Nucleated RBC 0.000 Cancelled Nucleated RBC % (auto) 0.0 ESR Hold Purple Top Hold Blue Top Sodium Potassium Chloride Carbon Dioxide Anion Gap BUN Creatinine Estim Creat Clear Calc Estimated GFR POC Glucose Random Glucose Calcium Total Creatine Kinase C-Reactive Protein Hold Red Top Hold Yellow Top Random Vancomycin Hep C Viral Load Hep C Viral Load Log HIV 1&2 Ab/P24 Ag 4thGn Blood Type Antibody Screen Crossmatch 10/13/23 10/13/2324 09:33 09:33 09:33 WBC RBC Hgb Hct MCV MCH MCHC RDW Plt Count MPV Absolute Nucleated RBC Nucleated RBC % (auto) Cancelled ESR 85 H Hold Purple Top Hold Blue Top Sodium 134 L Potassium 3.6 Chloride 104 Carbon Dioxide 24 Anion Gap 10 L BUN 21 H Creatinine Cancelled Cancelled 0.79 Estim Creat Clear Calc Cancelled Estimated GFR POC Glucose Random Glucose Calcium Total Creatine Kinase C-Reactive Protein Hold Red Top Hold Yellow Top Random Vancomycin Hep C Viral Load Hep C Viral Load Log HIV 1&2 Ab/P24 Ag 4thGn Blood Type Antibody Screen Crossmatch 10/13/23 10/13/23 10/13/23 09:33 09:33 09:33 WBC RBC Hgb Hct MCV MCH MCHC RDW Plt Count MPV Absolute Nucleated RBC Nucleated RBC % (auto) ESR Hold Purple Top Hold Blue Top Sodium Potassium Chloride Carbon Dioxide Anion Gap BUN Creatinine Estim Creat Clear Calc Cancelled 58.7 Estimated GFR Cancelled Cancelled POC Glucose Random Glucose Calcium Total Creatine Kinase C-Reactive Protein Hold Red Top Hold Yellow Top Random Vancomycin Hep C Viral Load Hep C Viral Load Log HIV 1&2 Ab/P24 Ag 4thGn Blood Type Antibody Screen Crossmatch 10/13/23 10/13/23 10/13/23 09:33 09:33 09:33 WBC RBC Hgb Hct MCV MCH MCHC RDW Plt Count MPV Absolute Nucleated RBC Nucleated RBC % (auto) ESR Hold Purple Top Hold Blue Top Sodium Potassium Chloride Carbon Dioxide Anion Gap BUN Creatinine Estim Creat Clear Calc Estimated GFR > 60 POC Glucose Random Glucose 122 H Calcium 7.6 L Total Creatine Kinase C-Reactive Protein Cancelled 16.91 H Hold Red Top Hold Yellow Top Random Vancomycin Hep C Viral Load Cancelled Hep C Viral Load Log Cancelled HIV 1&2 Ab/P24 Ag 4thGn Cancelled Nonreactive Blood Type Antibody Screen Crossmatch 10/13/23 10/13/23 10/13/23 14:51 16:13 16:55 WBC RBC Hgb 7.0 L* Hct 22.1 L MCV MCH MCHC RDW Plt Count MPV Absolute Nucleated RBC Nucleated RBC % (auto) ESR Hold Purple Top Hold Blue Top Sodium Potassium Chloride Carbon Dioxide Anion Gap BUN Creatinine Estim Creat Clear Calc Estimated GFR POC Glucose 97 Random Glucose Calcium Total Creatine Kinase C-Reactive Protein Hold Red Top Hold Yellow Top Random Vancomycin 15.8 Hep C Viral Load Hep C Viral Load Log HIV 1&2 Ab/P24 Ag 4thGn Blood Type Antibody Screen Crossmatch 10/14/23 10/14/23 06:26 08:25 WBC 13.7 H RBC Hgb 6.8 L* Hct 22.0 L MCV MCH MCHC RDW Plt Count 106 L MPV Absolute Nucleated RBC Nucleated RBC % (auto) ESR Hold Purple Top SEE NOTE Hold Blue Top SEE NOTE Sodium 134 L Potassium 3.8 Chloride 104 Carbon Dioxide 26 Anion Gap 8 L BUN 17 H Creatinine 0.71 Estim Creat Clear Calc 65.4 Estimated GFR > 60 POC Glucose Random Glucose 93 Calcium 7.6 L Total Creatine Kinase < 7 L C-Reactive Protein Hold Red Top See Note Hold Yellow Top See Note Random Vancomycin Hep C Viral Load Hep C Viral Load Log HIV 1&2 Ab/P24 Ag 4thGn Blood Type AB Positive Antibody Screen NEGATIVE Crossmatch See Detail Imaging Radiology Impressions: ITS Impressions Head CT 10/09/23 11:26 IMPRESSION: 1. No acute intracranial process seen. 2. Chronic bilateral maxillary and left middle ethmoid sinus inflammatory changes. Shoulder CT 10/11/23 14:39 IMPRESSION: 1. Absence of the distal clavicle as well as attenuation and fragmentation of the acromion is redemonstrated, similar when compared to the radiographs dated 08/18/2023. Focal erosion/cortical defect at the anteromedial aspect of the humeral head measuring up to 1.9 cm in ML dimension. It is unclear if this is present on the prior radiographs. 2. Large glenohumeral joint effusion with a lobulated extension along the anterosuperior aspect of the joint measuring up to 3.9 cm and likely corresponding to the patient's reported lump. This measures as simple fluid signal and is likely related to the joint space. Findings could indicate an infectious or inflammatory arthropathy in the appropriate clinical setting. 3. Moderate glenohumeral osteoarthritis. Superior subluxation of the humeral head indicating underlying rotator cuff tendon tears. Evaluation of the rotator cuff tendons severely limited on CT examination. 4. Patchy areas of scarring and nodularity within the right lung with evaluation significantly limited due to respiratory motion. Right middle lobe opacification with air bronchograms and peripheral cystic change. These findings appear new when compared to the CT thoracic spine dated 08/19/2023. Dedicated CT chest could help further evaluate. Shoulder X-Ray 10/12/23 10:15 IMPRESSION: 1. Redemonstration of absence of the distal clavicle. 2. Focal defect of the humeral head. 3. Increased soft tissue density surrounding the right humeral head consistent with shoulder effusion. Medications Medications Current Medications Acetaminophen (Acetaminophen 325 Mg Tablet) 975 mg PO Q6H PRN PRN Reason: Pain, Severe (Pain Scale 7-10) Last Admin: 10/14/23 17:00 Dose: 975 mg Albuterol Sulfate (Albuterol Sulfate (0.083%) 2.5 Mg/3 Ml Vial.Neb) 2.5 mg INHALE Q4H PRN PRN Reason: Shortness Of Breath Or Wheezing Albuterol Sulfate (Albuterol Sulfate 90 Mcg 8 Gm Inhaler) 2 puff INHALE Q4H PRN PRN Reason: Shortness Of Breath Or Wheezing Fluticasone Propionate (Fluticasone Propionate 250 Mcg Blst.W.Dev) 1 puff INHALE RBID [facility] Last Admin: 10/14/23 07:37 Dose: 1 puff Hydromorphone HCl (Hydromorphone Hcl 1 Mg/Ml Syringe) 0.5 mg IVPUSH Q4H PRN; Protocol PRN Reason: Pain, Severe (Pain Scale 7-10) Last Admin: 10/14/23 14:46 Dose: 0.5 mg Daptomycin 640 mg/ Sodium (Chloride) 62.8 mls @ 100 mls/hr IV Q24H [facility] Last Admin: 10/14/23 17:01 Dose: 100 mls/hr Methadone HCl (Methadone Hcl 20 Mg/2 Ml Oral.Conc) 20 mg PO DAILY [facility] Last Admin: 10/14/23 08:24 Dose: 20 mg Methadone HCl (Methadone Hcl 20 Mg/2 Ml Oral.Conc) 10 mg PO DAILY [facility] Last Admin: 10/14/23 08:24 Dose: 10 mg Montelukast Sodium (Montelukast Sodium 10 Mg Tablet) 10 mg PO DAILY [facility] Last Admin: 10/14/23 08:24 Dose: 10 mg Sodium Chloride (0.9 % Sodium Chloride Flush 3 Ml Syringe) 3 ml IVFLUSH QSHIFT [facility] Last Admin: 10/14/23 14:46 Dose: 3 ml Tramadol HCl (Tramadol Hcl 50 Mg Tablet) 50 mg PO Q4H PRN PRN Reason: Pain, Severe (Pain Scale 7-10) Last Admin: 10/14/23 17:01 Dose: 50 mg Vitamin D (Cholecalciferol (Vitamin D3) 25 Mcg Tablet) 25 mcg PO DAILY [facility] Last Admin: 10/14/23 08:24 Dose: 25 mcg Allergies Allergies Allergy/AdvReac Type Severity Reaction Status Date / Time cephalexin [From Keflex] Allergy Severe HIVES Verified 08/15/23 19:19 clindamycin [Clindamycin] Allergy Severe HIVES Verified 08/15/23 19:19 doxycycline [Doxycycline] Allergy Severe HIVES Verified 08/15/23 19:19 erythromycin base Allergy Severe HIVES Verified 08/15/23 19:20 [Erythromycin Base] levofloxacin [From Levaquin] Allergy Severe THROAT Verified 08/15/23 19:19 TIGHTENS nitrofurantoin Allergy Severe HIVES Verified 08/15/23 19:19 [From Macrobid] Penicillins Allergy Severe HIVES Verified 08/15/23 19:19 aspirin Allergy Unknown Hives Verified 08/15/23 19:19 linezolid [From ZYVOX] Allergy Unknown UNKNOWN Verified 08/15/23 19:19 Sulfa (Sulfonamide Allergy Unknown HIVES Verified 08/15/23 19:19 Antibiotics) [SULFA (SULFONAMIDE ANTIBIOTICS)] sulfacetamide Allergy Unknown Hives Verified 08/15/23 19:19 Erythromycin Allergy Unknown Hives Uncoded 04/22/23 06:01 seafood/shellfish Allergy Unknown Facial Uncoded 04/22/23 06:01 Swelling Sulfacet-R Allergy Unknown Hives Uncoded 04/22/23 06:01 Assessment & Plan Assessment & Plan (1) Opioid use disorder: Status: Acute Code(s): F11.90 - Opioid use, unspecified, uncomplicated Assessment and Plan: * continue methadone 20mg AM and 10mg PM * will continue to follow Total time managing care of this patient today ____ minutes.
[2023-10-15] VITALS (11 sets, daily range): BP systolic 114–152; BP diastolic 64–72; PULSE 80–96; RESP 16–20; TEMP 36.1–37.3; O2SAT 93–100
[2023-10-15] MEDS: HYDROmorphone HCl 1 MG/ML SYRINGE 0.5 MG IVPUSH ×4 (03:40→20:36)
[2023-10-15] MEDS: Fluticasone Propionate 250 MCG BLST.W.DEV 1 PUFF INHALE ×2 (07:32→20:01)
[2023-10-15] MEDS: Cholecalciferol (Vitamin D3) 25 MCG TABLET PO (07:45)
[2023-10-15] MEDS: methADONE HCl 20 MG/2 ML ORAL.CONC PO (07:45)
[2023-10-15] MEDS: traMADoL HCL 50 MG TABLET PO ×2 (07:45→21:35)
[2023-10-15] MEDS: Montelukast Sodium 10 MG TABLET PO (07:45)
[2023-10-15] MEDS: Acetaminophen 325 MG TABLET 975 MG PO ×2 (07:45→21:35)
[2023-10-15] MEDS: methADONE HCl 20 MG/2 ML ORAL.CONC 10 MG PO (07:46)
[2023-10-15] MEDS: vancomycin HCL 1,000 MG in 0.9 % Sodium Chloride 250 ML 270 MG IV (08:34)
--- NOTE | 2023-10-15 09:30 | PM.PNORT ---
Subjective Subjective Date of Service: 10/15/23 Interval history: Patient laying in bed comfortably Continues to express right shoulder pain Reports right hand pain Mild drainage right geyser lesion Pain slightly improved since bedside drainage Physical Exam Vital Signs: Vital Signs: Last Vital Signs Temp 99.1 F 10/15/23 08:00 Pulse 94 10/15/23 08:00 Resp 20 10/15/23 08:00 BP 129/67 10/15/23 08:00 Pulse Ox 93 10/15/23 08:00 O2 Del Method Nasal Cannula 10/15/23 08:00 O2 Flow Rate 2 10/15/23 08:00 BMI result Body Mass Index 25.0 Const: General: cooperative, healthy appearing and comfortable Extrem: Other: Right shoulder with golf ball sized lump over the ac joint. With mild drainage.NVI. Procedures Date of Service Date of Service: 10/15/23 Progress Note: A&P Assessment and plan (1) Abscess of right shoulder: Status: Acute Assessment and Plan: Keep area c/d/i Apply dressing over the area with multiple dressing changes as needed Continue to monitor for possible washout in the OR tomorrow -Keep NPO after midnight (2) Bacteremia due to Gram-positive bacteria: Status: Acute Time Spent With Patient Time: Total time managing care of this patient today ____ minutes. Quality Stroke Does the patient have a stroke diagnosis?: No VTE Prior VTE?: Yes VTE Risk Level:: Medical - moderate - high VTE Device Contraindication: Procedure Contraindicated VTE Drug Contraindication: Treatment Not Indicated
--- NOTE | 2023-10-15 10:43 | MHC.CM.PN ---
Per MD in [facility], Patient is not yet medically cleared for dc (may need shoulder surgery tomorrow); LTC VS Home/resume services is the tentative plan and CM will continue to follow.
--- NOTE | 2023-10-15 11:04 | MHC.CLN ---
F/U PT WITH INCREASED NUTRITION RISK R/T PRESSURE INJURY FAMILIAR FROM PREVIOUS ADMISSION PO INTAKE VARIABLE DIET RX: REGULAR -APPROPRIATE PT RECEIVING ENSURE MAX BID TO PROMOTE WOUND HEALING SUPP PROVIDES 300KCALS, 60G PROTEIN MONITOR PO INTAKE AND ENCOURAGE SUPPLEMENT
--- NOTE | 2023-10-15 11:32 | P.PNIM_ITS ---
Subjective Subjective Date of Service: 10/15/23 Interval History: mrsa bacteremia,? shoulder abcess Review of Systems she seems less pain today in shoulder ,also moving her right hand finger little more than yesterday,less leakage from shoulder joint area no fever or chills Physical Exam 2 Vital Signs: Vital Signs: Last Vital Signs Temp 99.1 F 10/15/23 08:00 Pulse 94 10/15/23 08:00 Resp 20 10/15/23 08:00 BP 129/67 10/15/23 08:00 Pulse Ox 93 10/15/23 08:00 O2 Del Method Nasal Cannula 10/15/23 08:00 O2 Flow Rate 2 10/15/23 08:00 BMI result Body Mass Index 25.0 Objective Data Active Medications Acetaminophen (Acetaminophen 325 Mg Tablet) 975 mg PO Q6H PRN PRN Reason: Pain, Severe (Pain Scale 7-10) Last Admin: 10/15/23 07:45 Dose: 975 mg Documented By: SARABJIT Albuterol Sulfate (Albuterol Sulfate (0.083%) 2.5 Mg/3 Ml Vial.Neb) 2.5 mg INHALE Q4H PRN PRN Reason: Shortness Of Breath Or Wheezing Albuterol Sulfate (Albuterol Sulfate 90 Mcg 8 Gm Inhaler) 2 puff INHALE Q4H PRN PRN Reason: Shortness Of Breath Or Wheezing Fluticasone Propionate (Fluticasone Propionate 250 Mcg Blst.W.Dev) 1 puff INHALE RBID [facility] Last Admin: 10/15/23 07:32 Dose: 1 puff Documented By: DELMER Hydromorphone HCl (Hydromorphone Hcl 1 Mg/Ml Syringe) 0.5 mg IVPUSH Q4H PRN; Protocol PRN Reason: Pain, Severe (Pain Scale 7-10) Last Admin: 10/15/23 08:34 Dose: 0.5 mg Documented By: SARABJIT Daptomycin 640 mg/ Sodium (Chloride) 62.8 mls @ 100 mls/hr IV Q24H [facility] Last Infusion: 10/14/23 21:14 Dose: Infused Documented By: BLAYNE Methadone HCl (Methadone Hcl 20 Mg/2 Ml Oral.Conc) 20 mg PO DAILY [facility] Last Admin: 10/15/23 07:45 Dose: 20 mg Documented By: SARABJIT Methadone HCl (Methadone Hcl 20 Mg/2 Ml Oral.Conc) 10 mg PO DAILY [facility] Last Admin: 10/15/23 07:46 Dose: 10 mg Documented By: SARABJIT Montelukast Sodium (Montelukast Sodium 10 Mg Tablet) 10 mg PO DAILY [facility] Last Admin: 10/15/23 07:45 Dose: 10 mg Documented By: SARABJIT Pharmacy Consult (Consult Rx Vancomycin Dosing) 1 each MISCELLANE DAILY PRN PRN Reason: Consult order Sodium Chloride (0.9 % Sodium Chloride Flush 3 Ml Syringe) 3 ml IVFLUSH QSHIFT [facility] Last Admin: 10/15/23 07:31 Dose: Not Given Documented By: SARABJIT Non-Admin Reason: See Note Tramadol HCl (Tramadol Hcl 50 Mg Tablet) 50 mg PO Q4H PRN PRN Reason: Pain, Severe (Pain Scale 7-10) Last Admin: 10/15/23 07:45 Dose: 50 mg Documented By: SARABJIT Vitamin D (Cholecalciferol (Vitamin D3) 25 Mcg Tablet) 25 mcg PO DAILY [facility] Last Admin: 10/15/23 07:45 Dose: 25 mcg Documented By: SARABJIT Labs 10/15/23 11:17 10/14/23 06:26 Labs: Laboratory Results - last 24 hr 10/14/23 10/14/23 06:26 08:25 Plt Count 106 L Total Creatine Kinase < 7 L Crossmatch See Detail Microbiology Microbiology Results: Microbiology 10/13/23 09:33 Blood Culture - Preliminary Blood - Venous Staphylococcus aureus 10/13/23 09:33 Blood Culture - Preliminary Blood - Venous Staphylococcus aureus Assessment and Plan (1) Abscess of right shoulder: Status: Acute (2) Bacteremia due to Gram-positive bacteria: Status: Acute Plan 73 y/o F with COPD on home O2 (2L/min NC), hepatitis C, IV drug use, MRSA abscesses,?C.diff infection, E. coli colitis, osteomyelitis (humerus, clavicle, and scapula) with MSSA bacteremia (June 2023), coccyx chronic ulcer, occlusive bilat DVT, anemia and PUD. Gram positive bacteremia(Staph aureus bacteremia ) : Recent hospitalization secondary to MRSA bacteremia. Patient left AMA and IV abx tx was not completed. lactic acid normal,again has Mrsa bacteremia, TTE : ef 55-60%, otherwise unchnaged from previous study. repeat blood cultures came gram positive cocci in clusters possible shoulder collection (possible abcess? )-self draining ,added cultures vanco trough is 15.8(on 10/11/23) cpk fine d/w ID -switched to daptomycin(considering persistent mrsa bacteremia and possible shoulder abcess) will add cardio eval for question need NIC considering persistent mrsa bacteremia and also she need shoulder washing tomorrow with ortho( procedure for shoulder abcess). her iv line (Ej) leaking,poor stick,placed order for midline Acute kidney injury. Likely secondary to #1 and use of NSAIDs. 1 prbc earlier during admission and another 1 PRBC transfusion on 10/14/23 ( second prbc sofar). Generalized pain, chronic. Dilaudid IV as needed. ch repsiratory failure sec Chronic obstructive pulmonary disease, not exacerbation. Continue supplemental oxygen to keep oxygen saturation above 90%, nebs prn, Continue montelukast . Symptomatic anemia, suspecting GI blood loss. Patient has PUD and has been taking multiple doses of motrin daily for the last few days. She also takes Eliquis. According to previous notes pt has been refusing endoscopies. h/h:chronic mostly between 7-8 range ,moniter h/h closely,platlets levels improving received 1 prbc Gi eval: Hold on EGD and colonoscopy for the meantime given her fraility and bactermia, ppi,moniter h/h for 24-48 hrs ,d/w hematology/Gi -patient has anemia/thrombocytopnia -currently hold eliquis. moniter h/h closely. Bilateral occlusive deep venous thrombosis. s/p ivc filter, Eliquis on hold-please see above (anemia/severe thrombocytopenia). History of osteomyelitis (humerus, clavicle and scapula) has mrsa bacteremia right shoulder ct scan:Large glenohumeral joint effusion with a lobulated extension along the anterosuperior aspect of the joint measuring up to 3.9 cm and likely corresponding to the patient's reported lump. right upper shoulder pain/bump-possible shoulder fluid collection vs abcess d/w ortho-continue antibiotics ,moniter clinically ortho will follow up in case need shoulder surgerical intervention. History of hepatitic C. : mild elevated bilirubin in steting of hepatitic C. will check hiv ,hapatitis c viralload pending d/w hematology :thrombocytopenia also mutlifactroial -hepatitis c-possible liver dis /also has mrsa bacteremia History of IVDU. claims not using IV drugs.but utox positive for fentanyl/coacaine additction consult-continue methadone. Chronic decubitus ulcer, coccyx,elbow right . Healing: added wound care follwoing: Recommendations: 1. Turn and Reposition every 2 hours and as needed for patient comfort.? Use pillows or wedges to support off loading positions. 2. Off Load all bony prominences with use of pillows and heel boots if needed.? Apply Preventative foams where needed. ? 3. Monitor for incontinence and moisture control, use barrier creams when needed for prevention and treatment. 4. Provide adequate and supplemental nutrition. Place Nutrition consult if appropriate. 5. Order or Continue low air loss mattress. 6. Maintain blood glucose levels per Providers orders if applicable. 7. Coccyx and Right Elbow - Cleanse and irrigate with NS, Pat dry.? Apply barrier to periwound, lightly pack with Alginate / Durafiber AG, be sure to leave a wick to easy removal.? Cover with Foam dressing.? Change Daily. 8. Right Inner AC - Cleanse with NS moist gauze allow to dry. Apply cut to size hydrocolloid - change every 3 days. 9. Bilateral Heels - Apply Foam dressing for prevention. Off Load Pressure with boots or pillows. Re-consult wound care Nurse for wound deterioration or wound changes. Ongoing hospitlisation need :possible right shoulder ? abcess /mrsa bacteremia -need Iv antibiotics ,renal function/electrolytes monitering ,symptomatic anemia /thrombocytopenia -requiring transfusion-need h/h monitering , need acrdiac workup for IE,also need expert consultation for right shoulder pain/bump. Quality Stroke Does the patient have a stroke diagnosis?: No VTE Prior VTE?: Yes VTE Risk Level:: Medical - moderate - high VTE Device Contraindication: Procedure Contraindicated VTE Drug Contraindication: Treatment Not Indicated
[2023-10-15 12:02] LABS: Hematocrit 23.8 % (37.0-47.0); Hemoglobin 7.6 g/dl (12.0-16.0); Mean Corpuscular HGB Conc 31.9 g/dl (31.0-35.0); Mean Corpuscular Hemoglobin 32.6 pg (27.0-33.0); Mean Corpuscular Volume 102.1 fL (80.0-98.0); Mean Platelet Volume 11.8 fL (9.4-12.3); Platelet Count 137 X10*3/uL (160-400); Red Blood Count 2.33 X10*6/uL (4.20-5.50); Red Cell Distribution Width 17.2 % (11.0-16.0); White Blood Count 14.2 X10*3/uL (4.8-10.8)
--- NOTE | 2023-10-15 15:48 | P.CDIM_ITS ---
PROVIDER RESPONSE TEXT: To clarify, the appropriate diagnosis supported by the clinical indicators: Other QUERY TEXT: PHYSICIAN'S DOCUMENTATION REQUEST Date of Query: 10/12/2023 08:17 AM EST Patient Name: Elli Rivers Admit Date: 10/09/2023 Dear Prabhakar Justice, A review of the medical record indicates additional documentation may be needed. Please review below and update the documentation accordingly. Clinical Indicators: Wound care notes dated 10/11/23 - Right elbow, unstageable pressure injury, present on arrival Adherent thin yellow white slough to central part of wound bed - Suspect partial thickness tissue loss Apply barrier cream/foam dressing/change daily Based on the above, could you please provide further information regarding the ulcer/wound: Pressure (decubitus) ulcer right elbow unstageable Other Other (explain) Clinically unable to determine (explain) Thank you, Marie Gaming, CCS, CDIS Use of terms such as suspected, likely, concern for, or probable (associated with a specific diagnosi s that is being evaluated, monitored, or treated as if it exists) are acceptable and can be coded in the inpatient se tting, when documented at the time of discharge. Please use your independent medical judgment in providing your response. THIS QUERY IS PART OF THE PERMANENT MEDICAL RECORD
--- NOTE | 2023-10-15 15:48 | P.CDIM_ITS ---
PROVIDER RESPONSE TEXT: To clarify, the appropriate diagnosis supported by the clinical indicators: Gram-positive Bacteremia QUERY TEXT: PHYSICIAN'S DOCUMENTATION REQUEST Date of Query: 10/12/2023 10:08 AM EST Patient Name: Elli Rivers Admit Date: 10/09/2023 Dear Prabhakar Justice, A review of the medical record indicates additional documentation may be needed. Please review below and update the documentation accordingly. Consistency and clarity of a diagnosis documented within the medical record: ID consult note dated 10/10 - Reason for consult: Sepsis, staph aureus Assessment and plan dx: Bacteremia due to Gram-positive bacteria Gastroenterology consult note dated 10/09/23 - PLAN: Acute on chronic anemia with low plts and GPC bact eremia - may have bone marrow suppression from Sepsis, and gastritis from nsaid use. Progress note dated 10/11/23 - Plan: Gram positive bacteremia: recent hospitalization secondary to MRS A bacteremia, Patient left AMA and IV abx tx was not completed. IV Vancomycin Sepsis Systemic manifestations of infection, with 2 or more SIRS criteria which include: Fever > 100.4?F or hypothermia < 96.8?F Leukocytosis - WBC > 12,000 or leukopenia, WBC < 4,000, or > 10% bands Tachycardia- > 90 beats/minute Tachypnea- RR > 20 breaths/minute or PaCO2 < 32mmHg Based on the above information and the recognized standard for sepsis, could you please clarify if th is diagnoses is still accurate and reflective of the patient's condition to ensure quality of the medical record. Sepsis suspected, probable, possible, being treated etc. Gram-positive Bacteremia Other (explain) Clinically unable to determine (explain) Thank you, Marie Gaming, CCS, CDIS Use of terms such as suspected, likely, concern for, or probable (associated with a specific diagnosi s that is being evaluated, monitored, or treated as if it exists) are acceptable and can be coded in the inpatient se tting, when documented at the time of discharge. Please use your independent medical judgment in providing your response. THIS QUERY IS PART OF THE PERMANENT MEDICAL RECORD
[2023-10-15] MEDS: Dextrose 5 % and 0.9 % NaCl 1,000 ML 80 ML IVCONT (23:26)
[2023-10-16] VITALS (20 sets, daily range): BP systolic 112–139; BP diastolic 58–86; PULSE 82–98; RESP 12–20; TEMP 36.3–36.8; O2SAT 96–100
[2023-10-16] MEDS: HYDROmorphone HCl 1 MG/ML SYRINGE 0.5 MG IVPUSH ×2 (03:38→20:09)
[2023-10-16] MEDS: Acetaminophen 325 MG TABLET 975 MG PO (04:52)
[2023-10-16] MEDS: traMADoL HCL 50 MG TABLET PO ×2 (04:53→09:12)
[2023-10-16] MEDS: Fluticasone Propionate 250 MCG BLST.W.DEV 1 PUFF INHALE ×2 (07:30→19:31)
[2023-10-16 08:12] LABS: Hematocrit 22.3 % (37.0-47.0); Mean Corpuscular HGB Conc 31.4 g/dl (31.0-35.0); Mean Corpuscular Hemoglobin 32.6 pg (27.0-33.0); Mean Corpuscular Volume 103.7 fL (80.0-98.0); Mean Platelet Volume 11.1 fL (9.4-12.3); Platelet Count 152 X10*3/uL (160-400); Red Blood Count 2.15 X10*6/uL (4.20-5.50); Red Cell Distribution Width 16.9 % (11.0-16.0); White Blood Count 10.5 X10*3/uL (4.8-10.8)
[2023-10-16 08:27] LABS: Anion Gap 5 (12-20); Blood Urea Nitrogen 15 mg/dL (9-16); Calcium 7.7 mg/dL (8.4-10.2); Carbon Dioxide 28 mmol/L (22-29); Chloride 102 mmol/L (96-108); Creatinine Clr Calc Pharmacy 70.4; Estimated Glomerular Filt Rate > 60; Glucose Random 69 mg/dL (60-115); Potassium 4.1 mmol/L (3.3-5.1); Sodium 131 mmol/L (135-145)
[2023-10-16] MEDS: Cholecalciferol (Vitamin D3) 25 MCG TABLET PO (09:12)
[2023-10-16] MEDS: Montelukast Sodium 10 MG TABLET PO (09:12)
[2023-10-16] MEDS: methADONE HCl 20 MG/2 ML ORAL.CONC PO (09:12)
[2023-10-16] MEDS: 0.9 % Sodium Chloride Flush 3 ML SYRINGE IVFLUSH ×3 (09:12→23:08)
[2023-10-16 11:21] LABS: INTERNATIONAL NORM RATIO 1.1 (0.9-1.1); Prothrombin Time 13.5 SEC (11.1-13.3)
--- NOTE | 2023-10-16 11:43 | P.CDIM_ITS ---
PROVIDER RESPONSE TEXT: To clarify, the appropriate diagnosis supported by the clinical indicators: Pressure (decubitus) ulcer QUERY TEXT: PHYSICIAN'S DOCUMENTATION REQUEST Date of Query: 10/16/2023 09:57 AM EST Patient Name: Elli Rivers Admit Date: 10/09/2023 Dear Nessa Roberts, A review of the medical record indicates additional documentation may be needed. Please review below and update the documentation accordingly. Clinical Indicators: Wound care note 10/11/23 - Right elbow, unstageable pressure injury, present on arrival Apply barrier cream/foam dressing/change daily Based on the above, could you please provide further information regarding the ulcer/wound/injury: Pressure (decubitus) ulcer Other Other (explain) Clinically unable to determine (explain) Thank you, Marie Gaming, CCS, CDIS Use of terms such as suspected, likely, concern for, or probable (associated with a specific diagnosi s that is being evaluated, monitored, or treated as if it exists) are acceptable and can be coded in the inpatient se tting, when documented at the time of discharge. Please use your independent medical judgment in providing your response. THIS QUERY IS PART OF THE PERMANENT MEDICAL RECORD
--- NOTE | 2023-10-16 12:45 | P.PNIM_ITS ---
Subjective Subjective Date of Service: 10/16/23 Physical Exam 2 Vital Signs: Vital Signs: Last Vital Signs Temp 98.3 F 10/16/23 12:14 Pulse 88 10/16/23 12:14 Resp 16 10/16/23 12:14 BP 134/63 10/16/23 12:14 Pulse Ox 97 10/16/23 12:14 O2 Del Method Nasal Cannula 10/16/23 12:14 O2 Flow Rate 2 10/16/23 12:14 BMI result Body Mass Index 25.0 Objective Data Active Medications Acetaminophen (Acetaminophen 325 Mg Tablet) 975 mg PO Q6H PRN PRN Reason: Pain, Severe (Pain Scale 7-10) Last Admin: 10/16/23 04:52 Dose: 975 mg Documented By: BLAYNE Albuterol Sulfate (Albuterol Sulfate 90 Mcg 8 Gm Inhaler) 2 puff INHALE Q4H PRN PRN Reason: Shortness Of Breath Or Wheezing Fluticasone Propionate (Fluticasone Propionate 250 Mcg Blst.W.Dev) 1 puff INHALE RBID [facility] Last Admin: 10/16/23 07:30 Dose: 1 puff Documented By: DELMER Hydromorphone HCl (Hydromorphone Hcl 1 Mg/Ml Syringe) 0.5 mg IVPUSH Q4H PRN; Protocol PRN Reason: Pain, Severe (Pain Scale 7-10) Last Admin: 10/16/23 03:38 Dose: 0.5 mg Documented By: BLAYNE Daptomycin 640 mg/ Sodium (Chloride) 62.8 mls @ 100 mls/hr IV Q24H [facility] Last Infusion: 10/15/23 17:05 Dose: Infused Documented By: SARABJIT Dextrose/Sodium Chloride (D5ns) 1,000 mls @ 80 mls/hr IVCONT .[id number] [facility] Last Infusion: 10/16/23 10:56 Dose: 0 mls/hr Documented By: PAM Methadone HCl (Methadone Hcl 20 Mg/2 Ml Oral.Conc) 20 mg PO DAILY [facility] Last Admin: 10/16/23 09:12 Dose: 20 mg Documented By: PAM Methadone HCl (Methadone Hcl 20 Mg/2 Ml Oral.Conc) 10 mg PO DAILY@1800 GETACHEW Montelukast Sodium (Montelukast Sodium 10 Mg Tablet) 10 mg PO DAILY [facility] Last Admin: 10/16/23 09:12 Dose: 10 mg Documented By: PAM Sodium Chloride (0.9 % Sodium Chloride Flush 3 Ml Syringe) 3 ml IVFLUSH QSHIFT [facility] Last Admin: 10/16/23 09:12 Dose: 3 ml Documented By: PAM Tramadol HCl (Tramadol Hcl 50 Mg Tablet) 50 mg PO Q4H PRN PRN Reason: Pain, Severe (Pain Scale 7-10) Last Admin: 10/16/23 09:12 Dose: 50 mg Documented By: PAM Vitamin D (Cholecalciferol (Vitamin D3) 25 Mcg Tablet) 25 mcg PO DAILY [facility] Last Admin: 10/16/23 09:12 Dose: 25 mcg Documented By: PAM Labs 10/16/23 07:48 10/16/23 07:48 Labs: Laboratory Results - last 24 hr 10/14/23 10/16/23 10/16/23 08:25 07:48 07:48 MCV Cancelled 103.7 H MCH Cancelled MCHC RDW Plt Count MPV Absolute Nucleated RBC Nucleated RBC % (auto) PT INR Hold Blue Top Anion Gap Estim Creat Clear Calc Estimated GFR Random Glucose Calcium Hold Red Top Hold Yellow Top Blood Type AB Positive Antibody Screen NEGATIVE Crossmatch See Detail 10/16/23 10/16/23 10/16/23 07:48 07:48 07:48 MCV MCH 32.6 MCHC Cancelled 31.4 RDW Cancelled 16.9 H Plt Count Cancelled MPV Absolute Nucleated RBC Nucleated RBC % (auto) PT INR Hold Blue Top Anion Gap Estim Creat Clear Calc Estimated GFR Random Glucose Calcium Hold Red Top Hold Yellow Top Blood Type Antibody Screen Crossmatch 10/16/23 10/16/23 10/16/23 07:48 07:48 07:48 MCV MCH MCHC RDW Plt Count 152 L MPV Cancelled 11.1 Absolute Nucleated RBC Cancelled 0.000 Nucleated RBC % (auto) Cancelled PT INR Hold Blue Top Anion Gap Estim Creat Clear Calc Estimated GFR Random Glucose Calcium Hold Red Top Hold Yellow Top Blood Type Antibody Screen Crossmatch 10/16/23 07:48 MCV MCH MCHC RDW Plt Count MPV Absolute Nucleated RBC Nucleated RBC % (auto) 0.0 PT 13.5 H D INR 1.1 Hold Blue Top SEE NOTE Anion Gap 5 L Estim Creat Clear Calc 70.4 Estimated GFR > 60 Random Glucose 69 Calcium 7.7 L Hold Red Top See Note Hold Yellow Top See Note Blood Type Antibody Screen Crossmatch Microbiology Microbiology Results: Microbiology 10/14/23 15:28 Gram Stain - Final Shoulder - Abscess Routine Culture - Preliminary Staphylococcus aureus Anaerobic Culture - Preliminary Culture in progress. 10/13/23 09:33 Blood Culture - Final Blood - Venous Methicillin Res Staph Aureus 10/13/23 09:33 Blood Culture - Final Blood - Venous Methicillin Res Staph Aureus Assessment and Plan (1) Opioid use disorder: Status: Acute (2) Abscess of right shoulder: Status: Acute (3) Bacteremia due to Gram-positive bacteria: Status: Acute (4) JOE (acute kidney injury): Status: Acute Plan 73 y/o F with COPD on home O2 (2L/min NC), hepatitis C, IV drug use, MRSA abscesses,?C.diff infection, E. coli colitis, osteomyelitis (humerus, clavicle, and scapula) with MSSA bacteremia (June 2023), coccyx chronic ulcer, occlusive bilat DVT, anemia and PUD. MRSA bacteremia 2/2 Osteomyelitis (humerus, clavicle and scapula) Patient left AMA last admission and IV abx tx was not completed. TTE : ef 55-60%, otherwise unchnaged from previous study. repeat blood cultures as all prev are positive Right shoulder ct scan:Large glenohumeral joint effusion with a lobulated extension shoulder abcess to be drainged by Ortho team today d/w ID -switched to daptomycin(considering persistent mrsa bacteremia and possible shoulder abcess) cpk fine Cardio eval for question need NIC considering persistent mrsa bacteremia placed order for midline Acute kidney injury. Likely secondary to #1 and use of NSAIDs. Chronic hypoxic failure 2/2 COPD Continue supplemental oxygen to keep oxygen saturation above 90%, nebs prn, Continue montelukast . Symptomatic anemia, suspecting GI blood loss. Patient has PUD and has been taking multiple doses of motrin daily for the last few days. She also takes Eliquis Hb of 7 today, to give 1 unit PRBCs (total 3 this admission) Gi eval: Hold on EGD and colonoscopy for the meantime given her fraility and bactermia, ppi,moniter h/h for 24-48 hrs ,d/w hematology/Gi -patient has anemia/thrombocytopnia -currently hold eliquis. moniter h/h closely. Bilateral occlusive deep venous thrombosis. s/p ivc filter, Eliquis on hold-please see above (anemia/severe thrombocytopenia). History of hepatitic C check hiv ,hapatitis c viralload pending d/w hematology :thrombocytopenia also mutlifactroial -hepatitis c-possible liver dis /also has mrsa bacteremia History of IVDU. claims not using IV drugs.but utox positive for fentanyl/coacaine additction consult-continue methadone. Chronic decubitus ulcer, coccyx,elbow right . Healing: added wound care recommendations: Re-consult wound care Nurse for wound deterioration or wound changes. DVT PPx SCDs Ongoing hospitlisation need : right shoulder abcess and mrsa bacteremia -need Iv antibiotics ,renal function/electrolytes monitering ,symptomatic anemia /thrombocytopenia -requiring transfusion-need h/h monitering , need acrdiac workup for IE,also need expert consultation for right shoulder pain/bump. Quality Stroke Does the patient have a stroke diagnosis?: No VTE Prior VTE?: Yes VTE Risk Level:: Medical - moderate - high VTE Device Contraindication: Procedure Contraindicated VTE Drug Contraindication: Treatment Not Indicated
--- NOTE | 2023-10-16 13:24 | PC.NURSE ---
patient intermittently sleeping. when patient was awake she c/o of left eye pain. somethings in my eye . i cleaned with normal saline and patient got relief.
--- NOTE | 2023-10-16 14:01 | MHC.CM.PN ---
Per Psych/Ciara, Patient is not able to return to where she was living with a Friend r/t housing voucher issues. PT has recommended LTC and CM will continue to follow.
--- NOTE | 2023-10-16 14:06 | MHC.CM.PN ---
A referral has been sent to [facility] for [employer] [facility] for LTC. CM will follow.
--- NOTE | 2023-10-16 14:12 | MHC.SHP ---
Pre-Procedural Eval Section A Date of Service: 10/16/23 The patient is an INPATIENT: Yes Changes since office visit: No Cold of Flu in the past 2 weeks, No New Medical Problems, No Changes in Medication and No Patient answered all questions The History & Physical has been completed within 30 days and I have reviewed it.: Yes Section B Chief Complaint: Symptomatic Anemia Allergies: Allergies Allergy/AdvReac Type Severity Reaction Status Date / Time cephalexin [From Keflex] Allergy Severe HIVES Verified 08/15/23 19:19 clindamycin [Clindamycin] Allergy Severe HIVES Verified 08/15/23 19:19 doxycycline [Doxycycline] Allergy Severe HIVES Verified 08/15/23 19:19 erythromycin base Allergy Severe HIVES Verified 08/15/23 19:20 [Erythromycin Base] levofloxacin [From Levaquin] Allergy Severe THROAT Verified 08/15/23 19:19 TIGHTENS nitrofurantoin Allergy Severe HIVES Verified 08/15/23 19:19 [From Macrobid] Penicillins Allergy Severe HIVES Verified 08/15/23 19:19 aspirin Allergy Unknown Hives Verified 08/15/23 19:19 linezolid [From ZYVOX] Allergy Unknown UNKNOWN Verified 08/15/23 19:19 Sulfa (Sulfonamide Allergy Unknown HIVES Verified 08/15/23 19:19 Antibiotics) [SULFA (SULFONAMIDE ANTIBIOTICS)] sulfacetamide Allergy Unknown Hives Verified 08/15/23 19:19 Erythromycin Allergy Unknown Hives Uncoded 04/22/23 06:01 seafood/shellfish Allergy Unknown Facial Uncoded 04/22/23 06:01 Swelling Sulfacet-R Allergy Unknown Hives Uncoded 04/22/23 06:01 Plan I have reviewed the history and physical and performed a pertinent physical examination on my patient. No changes have occurred unless specified. Time Spent With Patient Time: Total time managing care of this patient today ____ minutes.
[2023-10-16 15:10] LABS: HCV Log PCR <1.18 NOT DETECTED Log IU/mL (NOT DETECTED); HepC Viral Load <15 NOT DETECTED IU/mL (NOT DETECTED)
--- NOTE | 2023-10-16 15:10 | P.BOP_ITS ---
Brief Operative Note Date of Service: 10/16/23 Pre-op diagnosis: right shoulder abcess Post-op diagnosis: same Procedure: right shoulder arthrotomy with irrigation and debridement Surgeon: Casimiro Edgar MD Anesthesia: MAC Was an Blindstitch Hemmer used for this Procedure?: Yes Blindstitch Hemmer: Herbert Bailon Estimated blood loss (mL): 20 IV fluids (mL): 500 Pathology: none sent Condition: stable Disposition: PACU
--- NOTE | 2023-10-16 15:34 | MHC.CM.PN ---
BART spoke with HCP/Aimee, who confirmed that Patient cannot return to her last living situation. Aimee has already been contacted by [facility] [employer] to begin the [facility] application.
[2023-10-16] MEDS: methADONE HCl 20 MG/2 ML ORAL.CONC 10 MG PO (17:44)
[2023-10-17] VITALS (8 sets, daily range): BP systolic 124–162; BP diastolic 58–79; PULSE 87–106; RESP 18–20; TEMP 36.2–36.7; O2SAT 95–99
[2023-10-17] MEDS: HYDROmorphone HCl 1 MG/ML SYRINGE 0.5 MG IVPUSH ×3 (01:32→13:04)
[2023-10-17] MEDS: Fluticasone Propionate 250 MCG BLST.W.DEV 1 PUFF INHALE ×2 (07:54→19:33)
[2023-10-17] MEDS: Cholecalciferol (Vitamin D3) 25 MCG TABLET PO (08:17)
[2023-10-17] MEDS: Montelukast Sodium 10 MG TABLET PO (08:17)
[2023-10-17] MEDS: methADONE HCl 20 MG/2 ML ORAL.CONC PO (08:17)
[2023-10-17] MEDS: 0.9 % Sodium Chloride Flush 3 ML SYRINGE IVFLUSH ×3 (08:18→23:45)
[2023-10-17 08:26] LABS: Hematocrit 25.8 % (37.0-47.0); Hemoglobin 8.4 g/dl (12.0-16.0); Mean Corpuscular HGB Conc 32.6 g/dl (31.0-35.0); Mean Corpuscular Hemoglobin 33.3 pg (27.0-33.0); Mean Corpuscular Volume 102.4 fL (80.0-98.0); Mean Platelet Volume 10.6 fL (9.4-12.3); Platelet Count 181 X10*3/uL (160-400); Red Blood Count 2.52 X10*6/uL (4.20-5.50); Red Cell Distribution Width 17.1 % (11.0-16.0); White Blood Count 10.5 X10*3/uL (4.8-10.8)
--- NOTE | 2023-10-17 08:33 | PM.PNORT ---
Subjective Subjective Date of Service: 10/17/23 Interval history: POD1 s/p right shoulder I&D Patient is resting in bed comfortably Reports pain is slightly better since surgery No overnight events Pain is managed No additional complaints Physical Exam Vital Signs: Vital Signs: Last Vital Signs Temp 97.1 F 10/17/23 07:28 Pulse 87 10/17/23 08:15 Resp 20 10/17/23 08:15 BP 124/58 L 10/17/23 07:28 Pulse Ox 99 10/17/23 07:28 O2 Del Method Nasal Cannula 10/17/23 07:28 O2 Flow Rate 2 10/17/23 07:28 BMI result Body Mass Index 25.0 Const: General: cooperative, healthy appearing and no acute distress Resp: Effort & Inspection: normal respiratory effort and able to speak in complete sentences Cardio: Rate: regular rate Peripheral pulses: Peripheral pulses 2+ throughout GI: Palpation (GI): Soft to palpation Skin: Lesions: no lesions Rashes: no rashes Extrem: Other: Right shoulder dressing is c/d/i. Able to flex and extend digits. Sensation intact. Capillary refill is brisk. Procedures Date of Service Date of Service: 10/17/23 Progress Note: A&P Assessment and plan (1) Abscess of right shoulder: Status: Acute Assessment and Plan: Continue pain mgmnt Dressing to remain in place, if this becomes saturated may remove and replace with another pressure dressing Packing to remain in place - Plan to pull at bedside tomorrow. Dispo planning-Pain management, wound care (2) Bacteremia due to Gram-positive bacteria: Status: Acute Time Spent With Patient Time: Total time managing care of this patient today ____ minutes. Quality Stroke Does the patient have a stroke diagnosis?: No VTE Prior VTE?: Yes VTE Risk Level:: Medical - moderate - high VTE Device Contraindication: Procedure Contraindicated VTE Drug Contraindication: Treatment Not Indicated
[2023-10-17 08:39] LABS: Anion Gap 7 (12-20); Blood Urea Nitrogen 14 mg/dL (9-16); Calcium 7.9 mg/dL (8.4-10.2); Carbon Dioxide 29 mmol/L (22-29); Chloride 102 mmol/L (96-108); Creatinine Clr Calc Pharmacy 73.7; Estimated Glomerular Filt Rate > 60; Potassium 4.4 mmol/L (3.3-5.1); Sodium 134 mmol/L (135-145)
[2023-10-17 08:40] LABS: Glucose Random 59 mg/dL (60-115)
--- NOTE | 2023-10-17 09:01 | HO.POSTANES ---
Post Anesthesia Evaluation Post Anesthesia Evaluation Date of Service: 10/17/23 Vital Signs: Vital Signs Temp Pulse Resp BP Pulse Ox O2 Del Method O2 Flow Rate 10/17/23 08:15 87 20 10/17/23 07:28 97.1 F 87 20 124/58 L 99 Nasal Cannula 2 10/17/23 03:06 97.8 F 95 20 151/76 H 98 Nasal Cannula 3 10/16/23 23:35 97.8 F 90 18 135/61 97 Nasal Cannula 3 Anesthesia: General Mental Status: Awake Pain Control: Satisfactory Nausea/Vomiting: None Hydration: Adequate Anesthesia-Related Issues: No Anes. Related Issues
--- NOTE | 2023-10-17 10:19 | P.CDIM_ITS ---
PROVIDER RESPONSE TEXT: To clarify, the appropriate diagnosis supported by the clinical indicators: Acute blood loss anemia: probable QUERY TEXT: PHYSICIAN'S DOCUMENTATION REQUEST Date of Query: 10/16/2023 12:51 PM EST Patient Name: Elli Rivers Admit Date: 10/09/2023 Dear Nessa Roberts, A review of the medical record indicates additional documentation may be needed. Please review below and update the documentation accordingly. Clinical Indicators: PN: 10/09 - Symptomatic anemia, suspecting GI blood loss. Patient has PUD and has been taking multiple doses of motrin daily for the last few days. She also takes Eliquis Transfused 3 units blood HGB 5.3 7.9 6.5 HCT 17.3 24.7 22.3 BP 99/51 Based on the above, could you clarify which of the following is the most likely type of anemia you ar e evaluating, treating, and/or monitoring? Acute blood loss anemia possible, probable, suspected etc Acute blood loss anemia (hemorrhagic disorder) secondary to anticoagulant (Eliquis) Other etiology of the blood loss Other (explain) Clinically unable to determine (explain) Thank you, Marie Gaming, CCS, CDIS Use of terms such as suspected, likely, concern for, or probable (associated with a specific diagnosi s that is being evaluated, monitored, or treated as if it exists) are acceptable and can be coded in the inpatient se tting, when documented at the time of discharge. Please use your independent medical judgment in providing your response. THIS QUERY IS PART OF THE PERMANENT MEDICAL RECORD
--- NOTE | 2023-10-17 10:35 | MHC.CLN ---
F/U PT WITH INCREASED NUTRITION RISK R/T PRESSURE INJURY PO INTAKE VARIABLE DIET RX: REGULAR -APPROPRIATE PT RECEIVING ENSURE MAX BID TO PROMOTE WOUND HEALING SUPP PROVIDES 300KCALS, 60G PROTEIN MONITOR PO INTAKE AND ENCOURAGE SUPPLEMENT
--- NOTE | 2023-10-17 10:36 | P.PNIM_ITS ---
Subjective Subjective Date of Service: 10/17/23 Interval History: shoulder improved Physical Exam 2 Vital Signs: Vital Signs: Last Vital Signs Temp 97.1 F 10/17/23 07:28 Pulse 87 10/17/23 08:15 Resp 20 10/17/23 08:15 BP 124/58 L 10/17/23 07:28 Pulse Ox 99 10/17/23 07:28 O2 Del Method Nasal Cannula 10/17/23 07:28 O2 Flow Rate 2 10/17/23 07:28 BMI result Body Mass Index 25.0 Const: General: cooperative, healthy appearing and no acute distress Resp: Effort & Inspection: normal respiratory effort and able to speak in complete sentences Cardio: Rate: regular rate Peripheral pulses: Peripheral pulses 2+ throughout GI: Palpation (GI): Soft to palpation Skin: Lesions: no lesions Rashes: no rashes Extrem: Other: Right shoulder dressing is c/d/i. Able to flex and extend digits. Sensation intact. Capillary refill is brisk. Objective Data Active Medications Acetaminophen (Acetaminophen 325 Mg Tablet) 975 mg PO Q6H PRN PRN Reason: Pain, Severe (Pain Scale 7-10) Last Admin: 10/16/23 04:52 Dose: 975 mg Documented By: BLAYNE Albuterol Sulfate (Albuterol Sulfate 90 Mcg 8 Gm Inhaler) 2 puff INHALE Q4H PRN PRN Reason: Shortness Of Breath Or Wheezing Fluticasone Propionate (Fluticasone Propionate 250 Mcg Blst.W.Dev) 1 puff INHALE RBID [facility] Last Admin: 10/17/23 07:54 Dose: 1 puff Documented By: MARIA M Hydromorphone HCl (Hydromorphone Hcl 1 Mg/Ml Syringe) 0.5 mg IVPUSH Q4H PRN; Protocol PRN Reason: Pain, Severe (Pain Scale 7-10) Last Admin: 10/17/23 08:17 Dose: 0.5 mg Documented By: PAM Daptomycin 640 mg/ Sodium (Chloride) 62.8 mls @ 100 mls/hr IV Q24H [facility] Last Infusion: 10/16/23 17:43 Dose: Infused Documented By: CTORRZ Methadone HCl (Methadone Hcl 20 Mg/2 Ml Oral.Conc) 20 mg PO DAILY [facility] Last Admin: 10/17/23 08:17 Dose: 20 mg Documented By: PAM Methadone HCl (Methadone Hcl 20 Mg/2 Ml Oral.Conc) 10 mg PO DAILY@1800 [facility] Last Admin: 10/16/23 17:44 Dose: 10 mg Documented By: CECILIO Montelukast Sodium (Montelukast Sodium 10 Mg Tablet) 10 mg PO DAILY [facility] Last Admin: 10/17/23 08:17 Dose: 10 mg Documented By: PAM Sodium Chloride (0.9 % Sodium Chloride Flush 3 Ml Syringe) 3 ml IVFLUSH QSHIFT [facility] Last Admin: 10/17/23 08:18 Dose: 3 ml Documented By: PAM Tramadol HCl (Tramadol Hcl 50 Mg Tablet) 50 mg PO Q4H PRN PRN Reason: Pain, Severe (Pain Scale 7-10) Last Admin: 10/16/23 09:12 Dose: 50 mg Documented By: PAM Vitamin D (Cholecalciferol (Vitamin D3) 25 Mcg Tablet) 25 mcg PO DAILY [facility] Last Admin: 10/17/23 08:17 Dose: 25 mcg Documented By: PAM Labs 10/17/23 08:07 10/17/23 08:07 Labs: Laboratory Results - last 24 hr 10/13/23 10/14/23 10/16/23 09:33 08:25 07:48 MCV MCH MCHC RDW Plt Count MPV Absolute Nucleated RBC Nucleated RBC % (auto) PT 13.5 H D INR 1.1 Anion Gap Estim Creat Clear Calc Estimated GFR Random Glucose Calcium Hep C Viral Load <15 NOT DETECTED Hep C Viral Load Log <1.18 NOT DETECTED Blood Type AB Positive Antibody Screen NEGATIVE Crossmatch See Detail 10/17/23 08:07 MCV 102.4 H MCH 33.3 H MCHC 32.6 RDW 17.1 H Plt Count 181 MPV 10.6 Absolute Nucleated RBC 0.000 Nucleated RBC % (auto) 0.0 PT INR Anion Gap 7 L Estim Creat Clear Calc 73.7 Estimated GFR > 60 Random Glucose 59 L* Calcium 7.9 L Hep C Viral Load Hep C Viral Load Log Blood Type Antibody Screen Crossmatch Microbiology Microbiology Results: Microbiology 10/16/23 07:54 Blood Culture - Preliminary Blood - Venous No growth after 24 hours. 10/14/23 15:28 Gram Stain - Final Shoulder - Abscess Routine Culture - Final Methicillin Res Staph Aureus Anaerobic Culture - Preliminary Culture in progress. 10/16/23 07:48 Blood Culture - Preliminary Blood - Venous Prelim: GPC Gram Stain only 10/13/23 09:33 Blood Culture - Final Blood - Venous Methicillin Res Staph Aureus 10/13/23 09:33 Blood Culture - Final Blood - Venous Methicillin Res Staph Aureus Assessment and Plan (1) Opioid use disorder: Status: Acute (2) Abscess of right shoulder: Status: Acute (3) Bacteremia due to Gram-positive bacteria: Status: Acute (4) JOE (acute kidney injury): Status: Acute Plan 73F PMH COPD on home O2 (2L/min NC), hepatitis C, IV drug use, MRSA abscesses,?C.diff infection, E. coli colitis, osteomyelitis (humerus, clavicle, and scapula) with MSSA bacteremia (June 2023), coccyx chronic ulcer, occlusive bilat DVT, anemia and PUD. MRSA bacteremia 2/2 Osteomyelitis (humerus, clavicle and scapula) Patient left AMA last admission and IV abx tx was not completed. TTE : ef 55-60%, otherwise unchnaged from previous study. repeat blood cultures as all prev are positive Right shoulder ct scan:Large glenohumeral joint effusion with a lobulated extension shoulder abcess drainged by Ortho team 10/16/23 d/w ID -switched to daptomycin(considering persistent mrsa bacteremia and shoulder abcess) cpk fine Cardio eval for question need NIC considering persistent mrsa bacteremia placed order for midline Acute kidney injury. resolved Chronic hypoxic failure 2/2 COPD Continue supplemental oxygen to keep oxygen saturation above 90%, nebs prn, Continue montelukast . Symptomatic anemia, suspecting GI blood loss. Patient has PUD and has been taking multiple doses of motrin daily for the last few days. She also takes Eliquis (total 3 units prbc this admission) Gi eval: Hold on EGD and colonoscopy for the meantime given her fraility and bactermia, ppi,moniter h/h for 24-48 hrs ,d/w hematology/Gi -patient has anemia/thrombocytopnia -currently hold eliquis. moniter h/h closely. Bilateral occlusive deep venous thrombosis. s/p ivc filter, Eliquis on hold-please see above (anemia/severe thrombocytopenia). History of hepatitic C viral load negative d/w hematology: thrombocytopenia also mutlifactroial -hepatitis c-possible liver dis /also has mrsa bacteremia History of IVDU. claims not using IV drugs.but utox positive for fentanyl/coacaine additction consult-continue methadone. Chronic decubitus ulcer, coccyx,elbow right . Healing: added wound care recommendations: DVT PPx SCDs reason for continued hospitalization: still bacteremic Quality Stroke Does the patient have a stroke diagnosis?: No VTE Prior VTE?: Yes VTE Risk Level:: Medical - moderate - high VTE Device Contraindication: Procedure Contraindicated VTE Drug Contraindication: Treatment Not Indicated
[2023-10-17] MEDS: traMADoL HCL 50 MG TABLET PO (11:21)
[2023-10-17 11:59] LABS: Glucose, Whole Blood 98 mg/dL (60-115)
--- NOTE | 2023-10-17 13:37 | MHC.CM.PN ---
Per rounds, MD indicate Pt not medically ready for D/C. CM to follow.
--- NOTE | 2023-10-17 15:06 | P.PNID_ITS ---
Subjective Subjective Date of Service: 10/17/23 Critical Care Time (minutes): 15 Comment: she still has positive gram positive cocci from yesterday in blood shoulder still painful Objective Data Labs 10/17/23 08:07 10/17/23 08:07 Labs: Laboratory Results - last 24 hr 10/13/23 10/14/23 10/17/23 09:33 08:25 08:07 WBC 10.5 RBC 2.52 L Hgb 8.4 L Hct 25.8 L MCV 102.4 H MCH 33.3 H MCHC 32.6 RDW 17.1 H Plt Count 181 MPV 10.6 Absolute Nucleated RBC 0.000 Nucleated RBC % (auto) 0.0 Sodium 134 L Potassium 4.4 Chloride 102 Carbon Dioxide 29 Anion Gap 7 L BUN 14 Creatinine 0.63 Estim Creat Clear Calc 73.7 Estimated GFR > 60 POC Glucose Random Glucose 59 L* Calcium 7.9 L Hep C Viral Load <15 NOT DETECTED Hep C Viral Load Log <1.18 NOT DETECTED Crossmatch See Detail 10/17/23 11:55 WBC RBC Hgb Hct MCV MCH MCHC RDW Plt Count MPV Absolute Nucleated RBC Nucleated RBC % (auto) Sodium Potassium Chloride Carbon Dioxide Anion Gap BUN Creatinine Estim Creat Clear Calc Estimated GFR POC Glucose 98 Random Glucose Calcium Hep C Viral Load Hep C Viral Load Log Crossmatch Microbiology Microbiology Results: Microbiology 10/16/23 07:54 Blood - Venous Blood Culture - Preliminary No growth after 24 hours. 10/14/23 15:28 Shoulder - Abscess Gram Stain - Final 10/14/23 15:28 Shoulder - Abscess Routine Culture - Final Methicillin Res Staph Aureus 10/14/23 15:28 Shoulder - Abscess Anaerobic Culture - Preliminary Culture in progress. 10/16/23 07:48 Blood - Venous Blood Culture - Preliminary Prelim: GPC Gram Stain only 10/13/23 09:33 Blood - Venous Blood Culture - Final Methicillin Res Staph Aureus 10/13/23 09:33 Blood - Venous Blood Culture - Final Methicillin Res Staph Aureus 10/08/23 19:31 Blood - Venous Blood Culture - Final Methicillin Res Staph Aureus 10/08/23 18:05 Blood - Venous Blood Culture - Final Methicillin Res Staph Aureus Physical Exam 2 Vital Signs: Vital Signs: Last Vital Signs Temp 97.7 F 10/17/23 11:18 Pulse 99 10/17/23 11:18 Resp 20 10/17/23 11:18 BP 135/79 10/17/23 11:18 Pulse Ox 96 10/17/23 11:18 O2 Del Method Nasal Cannula 10/17/23 11:18 O2 Flow Rate 2 10/17/23 11:18 BMI result Body Mass Index 25.0 Const: General: cooperative HEENT: Head: Yes normal to inspection Mouth: Normal oral and palatal mucosa present Resp: Effort & Inspection: normal respiratory effort Cardio: Rate: regular rate Rhythm: regular rhythm GI: Inspection: Yes normal to inspection Extrem: Other: still shoulder swelling right pain Assessment and Plan Assessment and plan (1) Abscess of right shoulder: Problem details: MRSA bacteremia Still positive Concern over septic right shoulder,concern over endocarditis. Status: Acute Assessment and Plan: Continue Daptomycin, six weeks from first negative blood culture. Weekly CK NIC Orthopedics wash out or remove purulence from affected right shoulder. (2) Bacteremia due to Gram-positive bacteria: Status: Acute Time Spent With Patient Time: Total time managing care of this patient today ____ minutes.
[2023-10-17] MEDS: methADONE HCl 20 MG/2 ML ORAL.CONC 10 MG PO (17:57)
[2023-10-18] VITALS (7 sets, daily range): BP systolic 134–155; BP diastolic 63–73; PULSE 72–101; RESP 16–20; TEMP 36.4–37; O2SAT 96–98
[2023-10-18] MEDS: HYDROmorphone HCl 1 MG/ML SYRINGE 0.5 MG IVPUSH (00:12)
[2023-10-18] MEDS: Fluticasone Propionate 250 MCG BLST.W.DEV 1 PUFF INHALE ×2 (07:43→19:23)
[2023-10-18] MEDS: methADONE HCl 20 MG/2 ML ORAL.CONC PO (08:23)
[2023-10-18] MEDS: traMADoL HCL 50 MG TABLET PO ×2 (08:24→13:45)
[2023-10-18] MEDS: Montelukast Sodium 10 MG TABLET PO (08:24)
[2023-10-18] MEDS: Cholecalciferol (Vitamin D3) 25 MCG TABLET PO (08:24)
[2023-10-18] MEDS: 0.9 % Sodium Chloride Flush 3 ML SYRINGE IVFLUSH ×2 (08:26→15:52)
--- NOTE | 2023-10-18 09:00 | PM.PNORT ---
Subjective Subjective Date of Service: 10/18/23 Interval history: POD 2 s/p right shoulder I&D Patient is resting in bed comfortably eating breakfast Reports pain is slightly better since surgery No overnight events Pain is managed No additional complaints Physical Exam Vital Signs: Vital Signs: Last Vital Signs Temp 98.0 F 10/18/23 07:07 Pulse 94 10/18/23 07:46 Resp 18 10/18/23 07:46 BP 141/63 H 10/18/23 07:07 Pulse Ox 96 10/18/23 07:07 O2 Del Method Nasal Cannula 10/18/23 07:07 O2 Flow Rate 2 10/18/23 07:07 BMI result Body Mass Index 25.0 Const: General: cooperative, healthy appearing and no acute distress Resp: Effort & Inspection: normal respiratory effort and able to speak in complete sentences Cardio: Rate: regular rate Peripheral pulses: Peripheral pulses 2+ throughout GI: Palpation (GI): Soft to palpation Skin: Lesions: no lesions Rashes: no rashes Extrem: Other: Right shoulder incision intact, packing in place- packing removed with serous fluid. No pus. Able to flex and extend digits. Sensation intact. Capillary refill is brisk. Procedures Date of Service Date of Service: 10/18/23 Progress Note: A&P Assessment and plan (1) Abscess of right shoulder: Status: Acute Assessment and Plan: Continue pain mgmnt Dry dressings as needed Dispo planning-Pain management, wound care (2) Bacteremia due to Gram-positive bacteria: Status: Acute Time Spent With Patient Time: Total time managing care of this patient today ____ minutes. Quality Stroke Does the patient have a stroke diagnosis?: No VTE Prior VTE?: Yes VTE Risk Level:: Medical - moderate - high VTE Device Contraindication: Procedure Contraindicated VTE Drug Contraindication: Treatment Not Indicated
--- NOTE | 2023-10-18 10:42 | P.PNIM_ITS ---
Subjective Subjective Date of Service: 10/18/23 Interval History: shoulder improved Physical Exam 2 Vital Signs: Vital Signs: Last Vital Signs Temp 98.0 F 10/18/23 07:07 Pulse 94 10/18/23 07:46 Resp 18 10/18/23 07:46 BP 141/63 H 10/18/23 07:07 Pulse Ox 96 10/18/23 07:07 O2 Del Method Nasal Cannula 10/18/23 07:07 O2 Flow Rate 2 10/18/23 07:07 BMI result Body Mass Index 25.0 Const: General: cooperative, healthy appearing and no acute distress Resp: Effort & Inspection: normal respiratory effort and able to speak in complete sentences Cardio: Rate: regular rate Peripheral pulses: Peripheral pulses 2+ throughout GI: Palpation (GI): Soft to palpation Skin: Lesions: no lesions Rashes: no rashes Extrem: Other: Right shoulder incision intact, packing in place- packing removed with serous fluid. No pus. Able to flex and extend digits. Sensation intact. Capillary refill is brisk. Objective Data Active Medications Acetaminophen (Acetaminophen 325 Mg Tablet) 975 mg PO Q6H PRN PRN Reason: Pain, Severe (Pain Scale 7-10) Last Admin: 10/16/23 04:52 Dose: 975 mg Documented By: BLAYNE Albuterol Sulfate (Albuterol Sulfate 90 Mcg 8 Gm Inhaler) 2 puff INHALE Q4H PRN PRN Reason: Shortness Of Breath Or Wheezing Fluticasone Propionate (Fluticasone Propionate 250 Mcg Blst.W.Dev) 1 puff INHALE RBID [facility] Last Admin: 10/18/23 07:43 Dose: 1 puff Documented By: ARMANI Daptomycin 640 mg/ Sodium (Chloride) 62.8 mls @ 100 mls/hr IV Q24H [facility] Last Infusion: 10/17/23 16:43 Dose: Infused Documented By: RASHAD Methadone HCl (Methadone Hcl 20 Mg/2 Ml Oral.Conc) 20 mg PO DAILY [facility] Last Admin: 10/18/23 08:23 Dose: 20 mg Documented By: PAM Methadone HCl (Methadone Hcl 20 Mg/2 Ml Oral.Conc) 10 mg PO DAILY@1800 [facility] Last Admin: 10/17/23 17:57 Dose: 10 mg Documented By: RASHAD Montelukast Sodium (Montelukast Sodium 10 Mg Tablet) 10 mg PO DAILY [facility] Last Admin: 10/18/23 08:24 Dose: 10 mg Documented By: PAM Sodium Chloride (0.9 % Sodium Chloride Flush 3 Ml Syringe) 3 ml IVFLUSH QSHIFT [facility] Last Admin: 10/18/23 08:26 Dose: 3 ml Documented By: PAM Tramadol HCl (Tramadol Hcl 50 Mg Tablet) 50 mg PO Q4H PRN PRN Reason: Pain, Severe (Pain Scale 7-10) Last Admin: 10/18/23 08:24 Dose: 50 mg Documented By: PAM Vitamin D (Cholecalciferol (Vitamin D3) 25 Mcg Tablet) 25 mcg PO DAILY [facility] Last Admin: 10/18/23 08:24 Dose: 25 mcg Documented By: PAM Labs 10/17/23 08:07 10/17/23 08:07 Labs: Laboratory Results - last 24 hr 10/17/23 11:55 POC Glucose 98 Microbiology Microbiology Results: Microbiology 10/16/23 07:54 Blood Culture - Preliminary Blood - Venous No growth after 48 hours. 10/14/23 15:28 Gram Stain - Final Shoulder - Abscess Routine Culture - Final Methicillin Res Staph Aureus Anaerobic Culture - Preliminary Culture in progress. Assessment and Plan (1) Opioid use disorder: Status: Acute (2) Abscess of right shoulder: Status: Acute (3) Bacteremia due to Gram-positive bacteria: Status: Acute (4) JOE (acute kidney injury): Status: Acute Plan 73F PMH COPD on home O2 (2L/min NC), hepatitis C, IV drug use, MRSA abscesses,?C.diff infection, E. coli colitis, osteomyelitis (humerus, clavicle, and scapula) with MSSA bacteremia (June 2023), coccyx chronic ulcer, occlusive bilat DVT, anemia and PUD. MRSA bacteremia 2/2 Osteomyelitis (humerus, clavicle and scapula) Patient left AMA last admission and IV abx tx was not completed. TTE : ef 55-60%, otherwise unchnaged from previous study. repeat blood cultures as all prev are positive Right shoulder ct scan:Large glenohumeral joint effusion with a lobulated extension shoulder abcess drainged by Ortho team 10/16/23 d/w ID -switched to daptomycin(considering persistent mrsa bacteremia and shoulder abcess) cpk fine Cardio eval for question need NIC considering persistent mrsa bacteremia Acute kidney injury. resolved Chronic hypoxic failure 2/2 COPD Continue supplemental oxygen to keep oxygen saturation above 90%, nebs prn, Continue montelukast . Symptomatic anemia, suspecting GI blood loss. Patient has PUD and has been taking multiple doses of motrin daily for the last few days. She also takes Eliquis (total 3 units prbc this admission) Gi eval: Hold on EGD and colonoscopy for the meantime given her fraility and bactermia, ppi,moniter h/h for 24-48 hrs ,d/w hematology/Gi -patient has anemia/thrombocytopnia -currently hold eliquis. moniter h/h closely. Bilateral occlusive deep venous thrombosis. s/p ivc filter, Eliquis on hold-please see above (anemia/severe thrombocytopenia). History of hepatitic C viral load negative d/w hematology: thrombocytopenia also mutlifactroial -hepatitis c-possible liver dis /also has mrsa bacteremia History of IVDU. claims not using IV drugs.but utox positive for fentanyl/coacaine additction consult-continue methadone. Chronic decubitus ulcer, coccyx,elbow right . Healing: added wound care recommendations: DVT PPx SCDs reason for continued hospitalization: still bacteremic Quality Stroke Does the patient have a stroke diagnosis?: No VTE Prior VTE?: Yes VTE Risk Level:: Medical - moderate - high VTE Device Contraindication: Procedure Contraindicated VTE Drug Contraindication: Treatment Not Indicated
[2023-10-18] MEDS: methADONE HCl 20 MG/2 ML ORAL.CONC 10 MG PO (18:31)
[2023-10-19] VITALS (10 sets, daily range): BP systolic 137–185; BP diastolic 64–96; PULSE 88–105; RESP 18–20; TEMP 36.1–36.9; O2SAT 95–100
[2023-10-19] MEDS: 0.9 % Sodium Chloride Flush 3 ML SYRINGE IVFLUSH ×3 (00:08→16:06)
[2023-10-19] MEDS: traMADoL HCL 50 MG TABLET PO ×2 (00:15→09:27)
[2023-10-19] MEDS: Fluticasone Propionate 250 MCG BLST.W.DEV 1 PUFF INHALE ×2 (07:44→19:38)
--- NOTE | 2023-10-19 08:14 | PM.PNORT ---
Subjective Subjective Date of Service: 10/19/23 Interval history: POD 3 s/p right shoulder I&D Patient is resting in bed comfortably Reports pain is slightly better since surgery No overnight events Pain is managed No additional complaints Physical Exam Vital Signs: Vital Signs: Last Vital Signs Temp 98.5 F 10/19/23 07:18 Pulse 89 10/19/23 07:46 Resp 20 10/19/23 07:46 BP 137/64 10/19/23 07:18 Pulse Ox 98 10/19/23 07:18 O2 Del Method Nasal Cannula 10/19/23 07:18 O2 Flow Rate 2 10/19/23 07:18 BMI result Body Mass Index 25.0 Const: General: cooperative, healthy appearing and no acute distress Resp: Effort & Inspection: normal respiratory effort and able to speak in complete sentences Cardio: Rate: regular rate Peripheral pulses: Peripheral pulses 2+ throughout GI: Palpation (GI): Soft to palpation Skin: Lesions: no lesions Rashes: no rashes Extrem: Other: Right shoulder bandage intact. Able to flex and extend digits. Sensation intact. Capillary refill is brisk. Procedures Date of Service Date of Service: 10/19/23 Progress Note: A&P Assessment and plan (1) Abscess of right shoulder: Status: Acute Assessment and Plan: Continue pain mgmnt Dry dressings as needed Dispo planning-Pain management, wound care (2) Bacteremia due to Gram-positive bacteria: Status: Acute Time Spent With Patient Time: Total time managing care of this patient today ____ minutes. Quality Stroke Does the patient have a stroke diagnosis?: No VTE Prior VTE?: Yes VTE Risk Level:: Medical - moderate - high VTE Device Contraindication: Procedure Contraindicated VTE Drug Contraindication: Treatment Not Indicated
[2023-10-19] MEDS: Acetaminophen 325 MG TABLET 975 MG PO ×2 (09:26→22:51)
[2023-10-19] MEDS: Montelukast Sodium 10 MG TABLET PO (09:27)
[2023-10-19] MEDS: Cholecalciferol (Vitamin D3) 25 MCG TABLET PO (09:27)
[2023-10-19] MEDS: methADONE HCl 20 MG/2 ML ORAL.CONC PO (09:28)
--- NOTE | 2023-10-19 09:28 | P.PNIM_ITS ---
Subjective Subjective Date of Service: 10/19/23 Interval History: no new complaints Physical Exam 2 Vital Signs: Vital Signs: Last Vital Signs Temp 98.5 F 10/19/23 07:18 Pulse 89 10/19/23 07:46 Resp 20 10/19/23 07:46 BP 137/64 10/19/23 07:18 Pulse Ox 98 10/19/23 07:18 O2 Del Method Nasal Cannula 10/19/23 07:18 O2 Flow Rate 2 10/19/23 07:18 BMI result Body Mass Index 25.0 Const: General: cooperative, healthy appearing and no acute distress Resp: Effort & Inspection: normal respiratory effort and able to speak in complete sentences Cardio: Rate: regular rate Peripheral pulses: Peripheral pulses 2+ throughout GI: Palpation (GI): Soft to palpation Skin: Lesions: no lesions Rashes: no rashes Extrem: Other: Right shoulder bandage intact. Able to flex and extend digits. Sensation intact. Capillary refill is brisk. Objective Data Active Medications Acetaminophen (Acetaminophen 325 Mg Tablet) 975 mg PO Q6H PRN PRN Reason: Pain, Severe (Pain Scale 7-10) Last Admin: 10/16/23 04:52 Dose: 975 mg Documented By: BLAYNE Albuterol Sulfate (Albuterol Sulfate 90 Mcg 8 Gm Inhaler) 2 puff INHALE Q4H PRN PRN Reason: Shortness Of Breath Or Wheezing Fluticasone Propionate (Fluticasone Propionate 250 Mcg Blst.W.Dev) 1 puff INHALE RBID [facility] Last Admin: 10/19/23 07:44 Dose: 1 puff Documented By: MARCIE Daptomycin 640 mg/ Sodium (Chloride) 62.8 mls @ 100 mls/hr IV Q24H [facility] Last Infusion: 10/18/23 16:47 Dose: Infused Documented By: RASHAD Methadone HCl (Methadone Hcl 20 Mg/2 Ml Oral.Conc) 20 mg PO DAILY [facility] Last Admin: 10/18/23 08:23 Dose: 20 mg Documented By: PAM Methadone HCl (Methadone Hcl 20 Mg/2 Ml Oral.Conc) 10 mg PO DAILY@1800 [facility] Last Admin: 10/18/23 18:31 Dose: 10 mg Documented By: RASHAD Montelukast Sodium (Montelukast Sodium 10 Mg Tablet) 10 mg PO DAILY [facility] Last Admin: 10/18/23 08:24 Dose: 10 mg Documented By: PAM Sodium Chloride (0.9 % Sodium Chloride Flush 3 Ml Syringe) 3 ml IVFLUSH QSHIFT [facility] Last Admin: 10/19/23 00:08 Dose: 3 ml Documented By: MARIA DOLORES Tramadol HCl (Tramadol Hcl 50 Mg Tablet) 50 mg PO Q4H PRN PRN Reason: Pain, Severe (Pain Scale 7-10) Last Admin: 10/19/23 00:15 Dose: 50 mg Documented By: MARIA DOLORES Vitamin D (Cholecalciferol (Vitamin D3) 25 Mcg Tablet) 25 mcg PO DAILY [facility] Last Admin: 10/18/23 08:24 Dose: 25 mcg Documented By: PAM Labs 10/17/23 08:07 10/17/23 08:07 Labs: Laboratory Results - last 24 hr 10/19/23 05:45 Hold Purple Top SEE NOTE Hold Blue Top SEE NOTE Hold Yellow Top See Note Microbiology Microbiology Results: Microbiology 10/16/23 07:48 Blood Culture - Final Blood - Venous Methicillin Res Staph Aureus 10/14/23 15:28 Gram Stain - Final Shoulder - Abscess Routine Culture - Final Methicillin Res Staph Aureus Anaerobic Culture - Preliminary Culture in progress. 10/16/23 07:54 Blood Culture - Preliminary Blood - Venous No growth after 48 hours. Assessment and Plan (1) Opioid use disorder: Status: Acute (2) Abscess of right shoulder: Status: Acute (3) Bacteremia due to Gram-positive bacteria: Status: Acute (4) JOE (acute kidney injury): Status: Acute Plan 73F PMH COPD on home O2 (2L/min NC), hepatitis C, IV drug use, MRSA abscesses,?C.diff infection, E. coli colitis, osteomyelitis (humerus, clavicle, and scapula) with MSSA bacteremia (June 2023), coccyx chronic ulcer, occlusive bilat DVT, anemia and PUD. MRSA bacteremia 2/2 Osteomyelitis (humerus, clavicle and scapula) Patient left AMA last admission and IV abx tx was not completed. TTE : ef 55-60%, otherwise unchnaged from previous study. repeat blood cultures as all prev are positive, follow up 10/19/[address] scan:Large glenohumeral joint effusion with a lobulated extension shoulder abcess drainged by Ortho team 10/16/23 d/w ID -switched to daptomycin(considering persistent mrsa bacteremia and shoulder abcess) cpk fine Acute kidney injury. resolved Chronic hypoxic failure 2/2 COPD Continue supplemental oxygen to keep oxygen saturation above 90%, nebs prn, Continue montelukast . Symptomatic anemia, suspecting GI blood loss. Patient has PUD and has been taking multiple doses of motrin daily for the last few days. She also takes Eliquis (total 3 units prbc this admission) Gi eval: Hold on EGD and colonoscopy for the meantime given her fraility and bactermia, ppi,moniter h/h for 24-48 hrs ,d/w hematology/Gi -patient has anemia/thrombocytopnia -currently hold eliquis. moniter h/h closely. Bilateral occlusive deep venous thrombosis. s/p ivc filter, Eliquis on hold-please see above (anemia/severe thrombocytopenia). History of hepatitic C viral load negative d/w hematology: thrombocytopenia also mutlifactroial -hepatitis c-possible liver dis /also has mrsa bacteremia History of IVDU. claims not using IV drugs.but utox positive for fentanyl/coacaine additction consult-continue methadone. Chronic decubitus ulcer, coccyx,elbow right . Healing: added wound care recommendations: DVT PPx SCDs reason for continued hospitalization: still bacteremic Quality Stroke Does the patient have a stroke diagnosis?: No VTE Prior VTE?: Yes VTE Risk Level:: Medical - moderate - high VTE Device Contraindication: Procedure Contraindicated VTE Drug Contraindication: Treatment Not Indicated
--- NOTE | 2023-10-19 11:01 | MHC.CM.PN ---
PER MD ROUNDS, PT NOT YET MEDICALLY CLEARED PT WILL NEED LTC PLACEMENT AND IS ON METHADONE [facility]
--- NOTE | 2023-10-19 11:50 | MHC.CLN ---
F/U PO INTAKE REMAINS VARIABLE DIET RX: REGULAR -APPROPRIATE PT RECEIVING ENSURE MAX BID TO PROMOTE WOUND HEALING SUPP PROVIDES 300KCALS, 60G PROTEIN WITH 100% ACCEPTANCE MONITOR PO INTAKE AND ENCOURAGE SUPPLEMENT
--- NOTE | 2023-10-19 15:07 | MHC.RECOVRN ---
Chart reviewed. Pt will need methadone linkage once LTC is secured. Will continue to follow.
[2023-10-19] MEDS: methADONE HCl 20 MG/2 ML ORAL.CONC 10 MG PO (16:40)
[2023-10-20] VITALS (7 sets, daily range): BP systolic 135–148; BP diastolic 64–72; PULSE 78–86; RESP 18–20; TEMP 36–36.4; O2SAT 97–100
[2023-10-20] MEDS: 0.9 % Sodium Chloride Flush 3 ML SYRINGE IVFLUSH ×3 (00:27→15:52)
[2023-10-20] MEDS: Acetaminophen 325 MG TABLET 975 MG PO ×2 (04:48→12:19)
[2023-10-20 06:33] LABS: Anion Gap 11 (12-20); Blood Urea Nitrogen 11 mg/dL (9-16); Carbon Dioxide 28 mmol/L (22-29); Chloride 99 mmol/L (96-108); Creatinine Clr Calc Pharmacy 78.7; Estimated Glomerular Filt Rate > 60; Potassium 4.5 mmol/L (3.3-5.1); Sodium 133 mmol/L (135-145)
[2023-10-20 06:37] LABS: Glucose Fasting 59 mg/dL (60-99)
[2023-10-20 06:44] LABS: Glucose, Whole Blood 67 mg/dL (60-115)
[2023-10-20 06:55] LABS: Glucose, Whole Blood 81 mg/dL (60-115)
[2023-10-20] MEDS: Fluticasone Propionate 250 MCG BLST.W.DEV 1 PUFF INHALE (07:38)
--- NOTE | 2023-10-20 09:05 | P.PNIM_ITS ---
Subjective Subjective Date of Service: 10/20/23 Interval History: no new complaints Physical Exam 2 Vital Signs: Vital Signs: Last Vital Signs Temp 97.4 F 10/20/23 07:14 Pulse 82 10/20/23 07:39 Resp 18 10/20/23 07:39 BP 142/65 H 10/20/23 07:14 Pulse Ox 100 10/20/23 07:14 O2 Del Method Nasal Cannula 10/20/23 07:14 O2 Flow Rate 2 10/20/23 07:14 BMI result Body Mass Index 25.0 Const: General: cooperative, healthy appearing and no acute distress Resp: Effort & Inspection: normal respiratory effort and able to speak in complete sentences Cardio: Rate: regular rate Peripheral pulses: Peripheral pulses 2+ throughout GI: Palpation (GI): Soft to palpation Skin: Lesions: no lesions Rashes: no rashes Extrem: Other: Right shoulder bandage intact. Able to flex and extend digits. Sensation intact. Capillary refill is brisk. Objective Data Active Medications Acetaminophen (Acetaminophen 325 Mg Tablet) 975 mg PO Q6H PRN PRN Reason: Pain, Severe (Pain Scale 7-10) Last Admin: 10/20/23 04:48 Dose: 975 mg Documented By: DOMINIC Albuterol Sulfate (Albuterol Sulfate 90 Mcg 8 Gm Inhaler) 2 puff INHALE Q4H PRN PRN Reason: Shortness Of Breath Or Wheezing Fluticasone Propionate (Fluticasone Propionate 250 Mcg Blst.W.Dev) 1 puff INHALE RBID [facility] Last Admin: 10/20/23 07:38 Dose: 1 puff Documented By: BETTY Daptomycin 640 mg/ Sodium (Chloride) 62.8 mls @ 100 mls/hr IV Q24H [facility] Last Infusion: 10/19/23 16:52 Dose: Infused Documented By: JOSE Methadone HCl (Methadone Hcl 20 Mg/2 Ml Oral.Conc) 20 mg PO DAILY [facility] Last Admin: 10/19/23 09:28 Dose: 20 mg Documented By: MELANY Methadone HCl (Methadone Hcl 20 Mg/2 Ml Oral.Conc) 10 mg PO DAILY@1800 [facility] Last Admin: 10/19/23 16:40 Dose: 10 mg Documented By: JOSE Montelukast Sodium (Montelukast Sodium 10 Mg Tablet) 10 mg PO DAILY [facility] Last Admin: 10/19/23 09:27 Dose: 10 mg Documented By: MELANY Sodium Chloride (0.9 % Sodium Chloride Flush 3 Ml Syringe) 3 ml IVFLUSH QSHIFT [facility] Last Admin: 10/20/23 00:27 Dose: 3 ml Documented By: DOMINIC Vitamin D (Cholecalciferol (Vitamin D3) 25 Mcg Tablet) 25 mcg PO DAILY [facility] Last Admin: 10/19/23 09:27 Dose: 25 mcg Documented By: MELANY Labs 10/17/23 08:07 10/20/23 05:53 Labs: Laboratory Results - last 24 hr 10/20/23 10/20/23 10/20/23 05:53 06:38 06:51 Anion Gap 11 L Estim Creat Clear Calc 78.7 Estimated GFR > 60 POC Glucose 67 81 Fasting Glucose 59 L* Calcium 8.0 L Microbiology Microbiology Results: Microbiology 10/14/23 15:28 Gram Stain - Final Shoulder - Abscess Routine Culture - Final Methicillin Res Staph Aureus Anaerobic Culture - Final NO GROWTH AFTER 5 DAYS 10/19/23 05:45 Blood Culture - Preliminary Blood - Venous No growth after 24 hours. 10/19/23 05:45 Blood Culture - Preliminary Blood - Venous No growth after 24 hours. 10/16/23 07:48 Blood Culture - Final Blood - Venous Methicillin Res Staph Aureus Assessment and Plan (1) Opioid use disorder: Status: Acute (2) Abscess of right shoulder: Status: Acute (3) Bacteremia due to Gram-positive bacteria: Status: Acute (4) JOE (acute kidney injury): Status: Acute Plan 73F PMH COPD on home O2 (2L/min NC), hepatitis C, IV drug use, MRSA abscesses,?C.diff infection, E. coli colitis, osteomyelitis (humerus, clavicle, and scapula) with MSSA bacteremia (June 2023), coccyx chronic ulcer, occlusive bilat DVT, anemia and PUD. MRSA bacteremia 2/2 Osteomyelitis (humerus, clavicle and scapula) Patient left AMA last admission and IV abx tx was not completed. TTE : ef 55-60%, otherwise unchnaged from previous study. repeat blood cultures as all prev are positive, follow up 10/19/23 - negative to date Right shoulder ct scan:Large glenohumeral joint effusion with a lobulated extension shoulder abcess drainged by Ortho team 10/16/23 d/w ID -switched to daptomycin(considering persistent mrsa bacteremia and shoulder abcess) cpk fine Acute kidney injury. resolved Chronic hypoxic failure 2/2 COPD Continue supplemental oxygen to keep oxygen saturation above 90%, nebs prn, Continue montelukast . Symptomatic anemia, suspecting GI blood loss. Patient has PUD and has been taking multiple doses of motrin daily for the last few days. She also takes Eliquis (total 3 units prbc this admission) Gi eval: Hold on EGD and colonoscopy for the meantime given her fraility and bactermia, ppi,moniter h/h for 24-48 hrs ,d/w hematology/Gi -patient has anemia/thrombocytopnia -currently hold eliquis. moniter h/h closely. Bilateral occlusive deep venous thrombosis. s/p ivc filter, Eliquis on hold-please see above (anemia/severe thrombocytopenia). History of hepatitic C viral load negative d/w hematology: thrombocytopenia also mutlifactroial -hepatitis c-possible liver dis /also has mrsa bacteremia History of IVDU. claims not using IV drugs.but utox positive for fentanyl/coacaine additction consult-continue methadone. Chronic decubitus ulcer, coccyx,elbow right . Healing: added wound care recommendations: DVT PPx SCDs reason for continued hospitalization: still bacteremic Quality Stroke Does the patient have a stroke diagnosis?: No VTE Prior VTE?: Yes VTE Risk Level:: Medical - moderate - high VTE Device Contraindication: Procedure Contraindicated VTE Drug Contraindication: Treatment Not Indicated
[2023-10-20] MEDS: Montelukast Sodium 10 MG TABLET PO (09:09)
[2023-10-20] MEDS: methADONE HCl 20 MG/2 ML ORAL.CONC PO (09:09)
[2023-10-20] MEDS: Cholecalciferol (Vitamin D3) 25 MCG TABLET PO (09:09)
[2023-10-20 09:13] LABS: Hemoglobin 8.3 g/dl (12.0-16.0); Mean Corpuscular HGB Conc 31.9 g/dl (31.0-35.0); Mean Corpuscular Hemoglobin 32.2 pg (27.0-33.0); Mean Corpuscular Volume 100.8 fL (80.0-98.0); Platelet Count 211 X10*3/uL (160-400); Red Blood Count 2.58 X10*6/uL (4.20-5.50); Red Cell Distribution Width 15.4 % (11.0-16.0); White Blood Count 7.2 X10*3/uL (4.8-10.8)
--- NOTE | 2023-10-20 12:36 | PM.PNORT ---
Subjective Subjective Date of Service: 10/20/23 Interval history: POD 4 s/p right shoulder I&D Patient is resting in bed comfortably Reports pain is slightly better since surgery No overnight events Pain is managed No additional complaints Physical Exam Vital Signs: Vital Signs: Last Vital Signs Temp 96.8 F 10/20/23 11:18 Pulse 86 10/20/23 11:18 Resp 19 10/20/23 11:18 BP 135/72 10/20/23 11:18 Pulse Ox 98 10/20/23 11:18 O2 Del Method Nasal Cannula 10/20/23 11:18 O2 Flow Rate 2 10/20/23 11:18 BMI result Body Mass Index 25.0 Const: General: cooperative, healthy appearing and no acute distress Resp: Effort & Inspection: normal respiratory effort and able to speak in complete sentences Cardio: Rate: regular rate Peripheral pulses: Peripheral pulses 2+ throughout GI: Palpation (GI): Soft to palpation Skin: Lesions: no lesions Rashes: no rashes Extrem: Other: Right shoulder bandage intact. Able to flex and extend digits. Sensation intact. Capillary refill is brisk. Procedures Date of Service Date of Service: 10/20/23 Progress Note: A&P Assessment and plan (1) Abscess of right shoulder: Status: Acute Assessment and Plan: Continue pain mgmnt Dry dressings as needed Dispo planning-Pain management, wound care (2) Bacteremia due to Gram-positive bacteria: Status: Acute Time Spent With Patient Time: Total time managing care of this patient today ____ minutes. Quality Stroke Does the patient have a stroke diagnosis?: No VTE Prior VTE?: Yes VTE Risk Level:: Medical - moderate - high VTE Device Contraindication: Procedure Contraindicated VTE Drug Contraindication: Treatment Not Indicated
--- NOTE | 2023-10-20 13:09 | W.PM.OPN ---
Operative Note Operative Note Date of Service: 10/16/23 Narrative: Date of Service: 10/16/23 Pre-op diagnosis: right shoulder abcess Post-op diagnosis: same Procedure: right shoulder arthrotomy with irrigation and debridement Surgeon: Casimiro Edgar MD Anesthesia: MAC Was an Moving Picture Producer used for this Procedure?: Yes Moving Picture Producer: Herbert Bailon Estimated blood loss (mL): 20 IV fluids (mL): 500 Pathology: none sent Condition: stable Disposition: PACU Patient was brought to the operating room and placed supine on the surgical table. She was prepped and draped in standard sterile fashion and a time out was called to indentify proper site, proper procedure and IV antibiotics per weight were administered. I made a 1.5 cm incision over the prior incision and the draining wound. There was a small opening deep and ,as there was no acromion/clavicle at this point I extended the capsular opening into the joint capsule. From here there was additional purulence expressed. I irrigated copiously and there was no additional purulent material in the joint and in the subacromial space including posteriorly and laterally into the deltoid bursa. Once I was satisfied that this has been irrigated as thoroughly as possible I closed the capsule with prolene and the skin with nylon. Packing material was left in and will be removed in ~24 hours. Jenniefr was awakened from anesthesia and brought topthe recovery room in stable condition. There were no known complications.
[2023-10-20] MEDS: polyethylene glycoL 3350 17 GM POWD.PACK PO (13:47)
[2023-10-20] MEDS: methADONE HCl 20 MG/2 ML ORAL.CONC 10 MG PO (17:24)
[2023-10-21] VITALS (7 sets, daily range): BP systolic 104–142; BP diastolic 48–71; PULSE 62–94; RESP 18–20; TEMP 36.1–37; O2SAT 97–100
[2023-10-21] MEDS: 0.9 % Sodium Chloride Flush 3 ML SYRINGE IVFLUSH ×3 (01:58→15:52)
[2023-10-21] MEDS: Acetaminophen 325 MG TABLET 975 MG PO ×3 (01:58→22:44)
[2023-10-21] MEDS: Fluticasone Propionate 250 MCG BLST.W.DEV 1 PUFF INHALE ×2 (07:39→19:48)
[2023-10-21] MEDS: methADONE HCl 20 MG/2 ML ORAL.CONC PO (08:16)
[2023-10-21] MEDS: Montelukast Sodium 10 MG TABLET PO (08:16)
[2023-10-21] MEDS: Cholecalciferol (Vitamin D3) 25 MCG TABLET PO (08:16)
--- NOTE | 2023-10-21 09:13 | P.PNIM_ITS ---
Subjective Subjective Date of Service: 10/21/23 Interval History: no new complaints Physical Exam 2 Vital Signs: Vital Signs: Last Vital Signs Temp 97.0 F 10/21/23 07:27 Pulse 62 10/21/23 07:40 Resp 18 10/21/23 07:40 BP 123/60 10/21/23 07:27 Pulse Ox 100 10/21/23 07:27 O2 Del Method Nasal Cannula 10/21/23 07:27 O2 Flow Rate 2 10/21/23 07:27 BMI result Body Mass Index 25.0 Const: General: cooperative, healthy appearing and no acute distress Resp: Effort & Inspection: normal respiratory effort and able to speak in complete sentences Cardio: Rate: regular rate Peripheral pulses: Peripheral pulses 2+ throughout GI: Palpation (GI): Soft to palpation Skin: Lesions: no lesions Rashes: no rashes Extrem: Other: Right shoulder bandage intact. Able to flex and extend digits. Sensation intact. Capillary refill is brisk. Objective Data Active Medications Acetaminophen (Acetaminophen 325 Mg Tablet) 975 mg PO Q6H PRN PRN Reason: Pain, Severe (Pain Scale 7-10) Last Admin: 10/21/23 08:15 Dose: 975 mg Documented By: ANDREA Albuterol Sulfate (Albuterol Sulfate 90 Mcg 8 Gm Inhaler) 2 puff INHALE Q4H PRN PRN Reason: Shortness Of Breath Or Wheezing Fluticasone Propionate (Fluticasone Propionate 250 Mcg Blst.W.Dev) 1 puff INHALE RBID [facility] Last Admin: 10/21/23 07:39 Dose: 1 puff Documented By: MARIA LUISA Daptomycin 640 mg/ Sodium (Chloride) 62.8 mls @ 100 mls/hr IV Q24H [facility] Last Infusion: 10/20/23 16:36 Dose: Infused Documented By: ANDREA Methadone HCl (Methadone Hcl 20 Mg/2 Ml Oral.Conc) 20 mg PO DAILY [facility] Last Admin: 10/21/23 08:16 Dose: 20 mg Documented By: ANDREA Methadone HCl (Methadone Hcl 20 Mg/2 Ml Oral.Conc) 10 mg PO DAILY@1800 [facility] Last Admin: 10/20/23 17:24 Dose: 10 mg Documented By: ANDREA Montelukast Sodium (Montelukast Sodium 10 Mg Tablet) 10 mg PO DAILY [facility] Last Admin: 10/21/23 08:16 Dose: 10 mg Documented By: ANDREA Sodium Chloride (0.9 % Sodium Chloride Flush 3 Ml Syringe) 3 ml IVFLUSH QSHIFT [facility] Last Admin: 10/21/23 08:20 Dose: 3 ml Documented By: ANDREA Vitamin D (Cholecalciferol (Vitamin D3) 25 Mcg Tablet) 25 mcg PO DAILY [facility] Last Admin: 10/21/23 08:16 Dose: 25 mcg Documented By: ANDREA Labs 10/20/23 09:04 10/20/23 05:53 Labs: Laboratory Results - last 24 hr 10/20/23 09:04 MCV 100.8 H MCH 32.2 MCHC 31.9 RDW 15.4 Plt Count 211 MPV 10.0 Absolute Nucleated RBC 0.000 Nucleated RBC % (auto) 0.0 Microbiology Microbiology Results: Microbiology 10/19/23 05:45 Blood Culture - Preliminary Blood - Venous No growth after 48 hours. 10/19/23 05:45 Blood Culture - Preliminary Blood - Venous No growth after 48 hours. 10/14/23 15:28 Gram Stain - Final Shoulder - Abscess Routine Culture - Final Methicillin Res Staph Aureus Anaerobic Culture - Final NO GROWTH AFTER 5 DAYS Assessment and Plan (1) Opioid use disorder: Status: Acute (2) Abscess of right shoulder: Status: Acute (3) Bacteremia due to Gram-positive bacteria: Status: Acute (4) JOE (acute kidney injury): Status: Acute Plan 73F PMH COPD on home O2 (2L/min NC), hepatitis C, IV drug use, MRSA abscesses,?C.diff infection, E. coli colitis, osteomyelitis (humerus, clavicle, and scapula) with MSSA bacteremia (June 2023), coccyx chronic ulcer, occlusive bilat DVT, anemia and PUD. MRSA bacteremia 2/2 Osteomyelitis (humerus, clavicle and scapula) Patient left AMA last admission and IV abx tx was not completed. TTE : ef 55-60%, otherwise unchnaged from previous study. repeat blood cultures as all prev are positive, follow up 10/19/23 - negative to date Right shoulder ct scan:Large glenohumeral joint effusion with a lobulated extension shoulder abcess drainged by Ortho team 10/16/23 d/w ID -switched to daptomycin(considering persistent mrsa bacteremia and shoulder abcess) cpk fine Acute kidney injury. resolved Chronic hypoxic failure 2/2 COPD Continue supplemental oxygen to keep oxygen saturation above 90%, nebs prn, Continue montelukast . Symptomatic anemia, suspecting GI blood loss. Patient has PUD and has been taking multiple doses of motrin daily for the last few days. She also takes Eliquis (total 3 units prbc this admission) Gi eval: Hold on EGD and colonoscopy for the meantime given her fraility and bactermia, ppi,moniter h/h for 24-48 hrs ,d/w hematology/Gi -patient has anemia/thrombocytopnia -currently hold eliquis. moniter h/h closely. Bilateral occlusive deep venous thrombosis. s/p ivc filter, Eliquis on hold-please see above (anemia/severe thrombocytopenia). History of hepatitic C viral load negative d/w hematology: thrombocytopenia also mutlifactroial -hepatitis c-possible liver dis /also has mrsa bacteremia History of IVDU. claims not using IV drugs.but utox positive for fentanyl/coacaine additction consult-continue methadone. Chronic decubitus ulcer, coccyx,elbow right . Healing: added wound care recommendations: DVT PPx SCDs reason for continued hospitalization: still bacteremic Quality Stroke Does the patient have a stroke diagnosis?: No VTE Prior VTE?: Yes VTE Risk Level:: Medical - moderate - high VTE Device Contraindication: Procedure Contraindicated VTE Drug Contraindication: Treatment Not Indicated
[2023-10-21] MEDS: methADONE HCl 20 MG/2 ML ORAL.CONC 10 MG PO (17:55)
[2023-10-22] VITALS (7 sets, daily range): BP systolic 119–159; BP diastolic 62–77; PULSE 81–102; RESP 16–20; TEMP 36.3–36.8; O2SAT 95–98
[2023-10-22] MEDS: 0.9 % Sodium Chloride Flush 3 ML SYRINGE IVFLUSH ×3 (00:30→16:19)
[2023-10-22] MEDS: Fluticasone Propionate 250 MCG BLST.W.DEV 1 PUFF INHALE (08:37)
--- NOTE | 2023-10-22 08:55 | P.PNIM_ITS ---
Subjective Subjective Date of Service: 10/22/23 Interval History: no new complaints Physical Exam 2 Vital Signs: Vital Signs: Last Vital Signs Temp 97.4 F 10/22/23 04:00 Pulse 102 H 10/22/23 08:38 Resp 18 10/22/23 08:38 BP 119/70 10/22/23 04:00 Pulse Ox 98 10/22/23 04:00 O2 Del Method Nasal Cannula 10/22/23 04:00 O2 Flow Rate 2 10/22/23 04:00 BMI result Body Mass Index 25.0 Const: General: cooperative, healthy appearing and no acute distress Resp: Effort & Inspection: normal respiratory effort and able to speak in complete sentences Cardio: Rate: regular rate Peripheral pulses: Peripheral pulses 2+ throughout GI: Palpation (GI): Soft to palpation Skin: Lesions: no lesions Rashes: no rashes Extrem: Other: Right shoulder bandage intact. Able to flex and extend digits. Sensation intact. Capillary refill is brisk. Objective Data Active Medications Acetaminophen (Acetaminophen 325 Mg Tablet) 975 mg PO Q6H PRN PRN Reason: Pain, Severe (Pain Scale 7-10) Last Admin: 10/21/23 22:44 Dose: 325 mg Documented By: LEXI Comments: per pt, she only wanted 1 pill, declined 2 others. Albuterol Sulfate (Albuterol Sulfate 90 Mcg 8 Gm Inhaler) 2 puff INHALE Q4H PRN PRN Reason: Shortness Of Breath Or Wheezing Fluticasone Propionate (Fluticasone Propionate 250 Mcg Blst.W.Dev) 1 puff INHALE RBID [facility] Last Admin: 10/22/23 08:37 Dose: 1 puff Documented By: MARCIE Daptomycin 640 mg/ Sodium (Chloride) 62.8 mls @ 100 mls/hr IV Q24H [facility] Last Infusion: 10/21/23 16:31 Dose: Infused Documented By: ANDREA Methadone HCl (Methadone Hcl 20 Mg/2 Ml Oral.Conc) 20 mg PO DAILY [facility] Last Admin: 10/21/23 08:16 Dose: 20 mg Documented By: ANDREA Methadone HCl (Methadone Hcl 20 Mg/2 Ml Oral.Conc) 10 mg PO DAILY@1800 [facility] Last Admin: 10/21/23 17:55 Dose: 10 mg Documented By: ANDREA Montelukast Sodium (Montelukast Sodium 10 Mg Tablet) 10 mg PO DAILY [facility] Last Admin: 10/21/23 08:16 Dose: 10 mg Documented By: ANDREA Sodium Chloride (0.9 % Sodium Chloride Flush 3 Ml Syringe) 3 ml IVFLUSH QSHIFT [facility] Last Admin: 10/22/23 00:30 Dose: 3 ml Documented By: LEXI Vitamin D (Cholecalciferol (Vitamin D3) 25 Mcg Tablet) 25 mcg PO DAILY [facility] Last Admin: 10/21/23 08:16 Dose: 25 mcg Documented By: ANDREA Labs 10/20/23 09:04 10/20/23 05:53 Microbiology Microbiology Results: Microbiology 10/16/23 07:54 Blood Culture - Final Blood - Venous No growth after 5 days. 10/19/23 05:45 Blood Culture - Preliminary Blood - Venous No growth after 48 hours. 10/19/23 05:45 Blood Culture - Preliminary Blood - Venous No growth after 48 hours. Assessment and Plan (1) Opioid use disorder: Status: Acute (2) Abscess of right shoulder: Status: Acute (3) Bacteremia due to Gram-positive bacteria: Status: Acute (4) JOE (acute kidney injury): Status: Acute Plan 73F PMH COPD on home O2 (2L/min NC), hepatitis C, IV drug use, MRSA abscesses,?C.diff infection, E. coli colitis, osteomyelitis (humerus, clavicle, and scapula) with MSSA bacteremia (June 2023), coccyx chronic ulcer, occlusive bilat DVT, anemia and PUD. MRSA bacteremia 2/2 Osteomyelitis (humerus, clavicle and scapula) Patient left AMA last admission and IV abx tx was not completed. TTE : ef 55-60%, otherwise unchnaged from previous study. repeat blood cultures as all prev are positive, follow up 10/19/23 - negative to date Right shoulder ct scan:Large glenohumeral joint effusion with a lobulated extension shoulder abcess drainged by Ortho team 10/16/23 d/w ID -switched to daptomycin(considering persistent mrsa bacteremia and shoulder abcess) cpk fine Acute kidney injury. resolved Chronic hypoxic failure 2/2 COPD Continue supplemental oxygen to keep oxygen saturation above 90%, nebs prn, Continue montelukast . Symptomatic anemia, suspecting GI blood loss. Patient has PUD and has been taking multiple doses of motrin daily for the last few days. She also takes Eliquis (total 3 units prbc this admission) Gi eval: Hold on EGD and colonoscopy for the meantime given her fraility and bactermia, ppi,moniter h/h for 24-48 hrs ,d/w hematology/Gi -patient has anemia/thrombocytopnia -currently hold eliquis. moniter h/h closely. Bilateral occlusive deep venous thrombosis. s/p ivc filter, Eliquis on hold-please see above (anemia/severe thrombocytopenia). History of hepatitic C viral load negative d/w hematology: thrombocytopenia also mutlifactroial -hepatitis c-possible liver dis /also has mrsa bacteremia History of IVDU. claims not using IV drugs.but utox positive for fentanyl/coacaine additction consult-continue methadone. Chronic decubitus ulcer, coccyx,elbow right . Healing: added wound care recommendations: DVT PPx SCDs reason for continued hospitalization: still bacteremic Quality Stroke Does the patient have a stroke diagnosis?: No VTE Prior VTE?: Yes VTE Risk Level:: Medical - moderate - high VTE Device Contraindication: Procedure Contraindicated VTE Drug Contraindication: Treatment Not Indicated
[2023-10-22] MEDS: Cholecalciferol (Vitamin D3) 25 MCG TABLET PO (08:59)
[2023-10-22] MEDS: methADONE HCl 20 MG/2 ML ORAL.CONC PO (08:59)
[2023-10-22] MEDS: Montelukast Sodium 10 MG TABLET PO (08:59)
--- NOTE | 2023-10-22 10:31 | MHC.CM.PN ---
Patient is medically cleared for dc to LTC; [facility] (Methadone/will need Guest Dosing) is the only facility who is following for bed availability. CM will follow.
[2023-10-22] MEDS: polyethylene glycoL 3350 17 GM POWD.PACK PO (12:08)
--- NOTE | 2023-10-22 12:52 | HO.WOUND ---
Wound Consult: Follow up 73yr old F?[place] [facility] [place] See progress notes and H&P for detailed history.? Wound consult placed for Coccyx wound - follow up assessment for wounds listed below. Arrival to bedside patient is agreeable to assessment and photo documentation. Coccyx Etiology: ?Unstageable Pressure Injury ?Present on Admission Wound Bed: Unchanged today - remains full thickness tissue loss with adherent slough to central part of wound bed - moist Drainage / Odor: [place] - no odor noted Edges: ? macerated Rajani wound: pink blanchable intact tissue - various areas of maroon nonblancahble tissue -? No Induration, Fluctuance or Warmth noted Pain: reports pain Goals of Treatment: ? Moisture management with Alginate and off loading Right Elbow Etiology: Stage 2 Pressure Injury - ?Present on Admission Wound Bed: dry scabbed wound bed - appears to be resolving and resurfacing - partial thickness tissue loss Drainage / Odor: None Edges: ?attached Rajani wound: hyperpigmented intact tissue - No Induration, Fluctuance or Warmth noted Pain: reports pain Goals of Treatment: ? Foam dressing to aid in protection from friction and allow for moist wound healing. Right AC wound - Appears resolved however assessment was difficult due to patient comfort and right arm contracture. No topical dressing needed at this time. Bilateral heels intact redness lessened this assessment - foam dressing in place for prevention - peeled back and assessed for pink intact blanchable tissue. Foam dressing applied and off loaded with pillows - refused boots Recommendations: 1. Turn and Reposition every 2 hours and as needed for patient comfort.? Use pillows or wedges to support off loading positions. 2. Off Load all bony prominences with use of pillows and heel boots if needed.? Apply Preventative foams where needed. ? 3. Monitor for incontinence and moisture control, use barrier creams when needed for prevention and treatment. 4. Provide adequate and supplemental nutrition. Place Nutrition consult if appropriate. 5. Order or Continue low air loss mattress. 6. Maintain blood glucose levels per Providers orders if applicable. 7. Coccyx - Cleanse and irrigate with NS, Pat dry.? Apply barrier to periwound, lightly pack with Alginate / Durafiber AG, be sure to leave a wick to easy removal.? Cover with Foam dressing.? Change Daily. 8. Bilateral Heels - Apply Foam dressing for prevention. Off Load Pressure with boots or pillows. 9. Right Elbow - Cleanse with NS, Pat dry.? Apply Foam dressing, peel back and assess Q shift change every 3 days. Re-consult wound care Nurse for wound deterioration or wound changes.
[2023-10-22] MEDS: Acetaminophen 325 MG TABLET 975 MG PO (16:19)
[2023-10-22] MEDS: methADONE HCl 20 MG/2 ML ORAL.CONC 10 MG PO (16:47)
[2023-10-23] VITALS (7 sets, daily range): BP systolic 137–156; BP diastolic 71–83; PULSE 78–90; RESP 16–22; TEMP 36.1–36.9; O2SAT 93–98
[2023-10-23] MEDS: 0.9 % Sodium Chloride Flush 3 ML SYRINGE IVFLUSH ×3 (00:30→16:38)
[2023-10-23] MEDS: Acetaminophen 325 MG TABLET 975 MG PO ×2 (06:16→22:06)
[2023-10-23] MEDS: Fluticasone Propionate 250 MCG BLST.W.DEV 1 PUFF INHALE ×2 (07:30→19:17)
[2023-10-23] MEDS: Montelukast Sodium 10 MG TABLET PO (07:34)
[2023-10-23] MEDS: methADONE HCl 20 MG/2 ML ORAL.CONC PO (07:34)
[2023-10-23] MEDS: Cholecalciferol (Vitamin D3) 25 MCG TABLET PO (07:34)
--- NOTE | 2023-10-23 09:48 | P.PNIM_ITS ---
Subjective Subjective Date of Service: 10/23/23 Interval History: no new complaints Physical Exam 2 Vital Signs: Vital Signs: Last Vital Signs Temp 96.9 F 10/23/23 07:09 Pulse 79 10/23/23 07:31 Resp 16 10/23/23 07:31 BP 138/72 10/23/23 07:09 Pulse Ox 97 10/23/23 07:09 O2 Del Method Nasal Cannula 10/23/23 07:09 O2 Flow Rate 2 10/23/23 07:09 BMI result Body Mass Index 25.0 Const: General: cooperative, healthy appearing and no acute distress Resp: Effort & Inspection: normal respiratory effort and able to speak in complete sentences Cardio: Rate: regular rate Peripheral pulses: Peripheral pulses 2+ throughout GI: Palpation (GI): Soft to palpation Skin: Lesions: no lesions Rashes: no rashes Extrem: Other: Right shoulder bandage intact. Able to flex and extend digits. Sensation intact. Capillary refill is brisk. Objective Data Active Medications Acetaminophen (Acetaminophen 325 Mg Tablet) 975 mg PO Q6H PRN PRN Reason: Pain, Severe (Pain Scale 7-10) Last Admin: 10/23/23 06:16 Dose: 650 mg Documented By: LEXI Albuterol Sulfate (Albuterol Sulfate 90 Mcg 8 Gm Inhaler) 2 puff INHALE Q4H PRN PRN Reason: Shortness Of Breath Or Wheezing Fluticasone Propionate (Fluticasone Propionate 250 Mcg Blst.W.Dev) 1 puff INHALE RBID [facility] Last Admin: 10/23/23 07:30 Dose: 1 puff Documented By: MARIA LUISA Daptomycin 640 mg/ Sodium (Chloride) 62.8 mls @ 100 mls/hr IV Q24H [facility] Last Infusion: 10/22/23 17:01 Dose: Infused Documented By: JOSE Methadone HCl (Methadone Hcl 20 Mg/2 Ml Oral.Conc) 20 mg PO DAILY [facility] Last Admin: 10/23/23 07:34 Dose: 20 mg Documented By: JOSE Methadone HCl (Methadone Hcl 20 Mg/2 Ml Oral.Conc) 10 mg PO DAILY@1800 [facility] Last Admin: 10/22/23 16:47 Dose: 10 mg Documented By: JOSE Montelukast Sodium (Montelukast Sodium 10 Mg Tablet) 10 mg PO DAILY [facility] Last Admin: 10/23/23 07:34 Dose: 10 mg Documented By: JOSE Sodium Chloride (0.9 % Sodium Chloride Flush 3 Ml Syringe) 3 ml IVFLUSH QSHIFT [facility] Last Admin: 10/23/23 07:34 Dose: 3 ml Documented By: JOSE Vitamin D (Cholecalciferol (Vitamin D3) 25 Mcg Tablet) 25 mcg PO DAILY [facility] Last Admin: 10/23/23 07:34 Dose: 25 mcg Documented By: JOSE Labs 10/20/23 09:04 10/20/23 05:53 Assessment and Plan (1) Opioid use disorder: Status: Acute (2) Abscess of right shoulder: Status: Acute (3) Bacteremia due to Gram-positive bacteria: Status: Acute (4) JOE (acute kidney injury): Status: Acute Plan 73F PMH COPD on home O2 (2L/min NC), hepatitis C, IV drug use, MRSA abscesses,?C.diff infection, E. coli colitis, osteomyelitis (humerus, clavicle, and scapula) with MSSA bacteremia (June 2023), coccyx chronic ulcer, occlusive bilat DVT, anemia and PUD. MRSA bacteremia 2/2 Osteomyelitis (humerus, clavicle and scapula) Patient left AMA last admission and IV abx tx was not completed. TTE : ef 55-60%, otherwise unchnaged from previous study. repeat blood cultures as all prev are positive, follow up 10/19/23 - negative to date Right shoulder ct scan:Large glenohumeral joint effusion with a lobulated extension shoulder abcess drainged by Ortho team 10/16/23 d/w ID -switched to daptomycin(considering persistent mrsa bacteremia and shoulder abcess) cpk fine Acute kidney injury. resolved Chronic hypoxic failure 2/2 COPD Continue supplemental oxygen to keep oxygen saturation above 90%, nebs prn, Continue montelukast . Symptomatic anemia, suspecting GI blood loss. Patient has PUD and has been taking multiple doses of motrin daily for the last few days. She also takes Eliquis (total 3 units prbc this admission) Gi eval: Hold on EGD and colonoscopy for the meantime given her fraility and bactermia, ppi,moniter h/h for 24-48 hrs ,d/w hematology/Gi -patient has anemia/thrombocytopnia -currently hold eliquis. moniter h/h closely. Bilateral occlusive deep venous thrombosis. s/p ivc filter, Eliquis on hold-please see above (anemia/severe thrombocytopenia). History of hepatitic C viral load negative d/w hematology: thrombocytopenia also mutlifactroial -hepatitis c-possible liver dis /also has mrsa bacteremia History of IVDU. claims not using IV drugs.but utox positive for fentanyl/coacaine additction consult-continue methadone. Chronic decubitus ulcer, coccyx,elbow right . Healing: added wound care recommendations: DVT PPx SCDs reason for continued hospitalization: still bacteremic Quality Stroke Does the patient have a stroke diagnosis?: No VTE Prior VTE?: Yes VTE Risk Level:: Medical - moderate - high VTE Device Contraindication: Procedure Contraindicated VTE Drug Contraindication: Treatment Not Indicated
--- NOTE | 2023-10-23 17:08 | PM.EVENT ---
Event Note Date of Service: 10/23/23 Event Note: Addiction note methadone dosing adjusted to ensure once daily dosing prior to discharge -bedtime dose decreased to 5 mg from 10mg -morning dose increased to 25mg from 20mg will check in with patient tomorrow (10/24/23) Time Spent With Patient Time: Total time managing care of this patient today ____ minutes.
[2023-10-23] MEDS: methADONE HCl 20 MG/2 ML ORAL.CONC 5 MG PO (17:12)
[2023-10-24] VITALS (8 sets, daily range): BP systolic 119–155; BP diastolic 63–82; PULSE 75–99; RESP 18–20; TEMP 36.1–36.7; O2SAT 94–98
[2023-10-24] MEDS: 0.9 % Sodium Chloride Flush 3 ML SYRINGE IVFLUSH ×4 (00:25→21:20)
[2023-10-24] MEDS: traMADoL HCL 50 MG TABLET 25 MG PO ×3 (05:52→19:40)
[2023-10-24] MEDS: methADONE HCl 20 MG/2 ML ORAL.CONC 25 MG PO (07:36)
[2023-10-24] MEDS: Montelukast Sodium 10 MG TABLET PO (07:36)
[2023-10-24] MEDS: Cholecalciferol (Vitamin D3) 25 MCG TABLET PO (07:36)
[2023-10-24] MEDS: Fluticasone Propionate 250 MCG BLST.W.DEV 1 PUFF INHALE ×2 (08:07→20:04)
[2023-10-24 08:16] LABS: Anion Gap 10 (12-20); Blood Urea Nitrogen 12 mg/dL (9-16); Calcium 7.9 mg/dL (8.4-10.2); Carbon Dioxide 30 mmol/L (22-29); Chloride 97 mmol/L (96-108); Creatinine Clr Calc Pharmacy 84.4; Estimated Glomerular Filt Rate > 60; Glucose Fasting 58 mg/dL (60-99); Lactate Dehydrogenase 188 U/L (122-220); Potassium 4.9 mmol/L (3.3-5.1); Sodium 132 mmol/L (135-145)
--- NOTE | 2023-10-24 09:47 | MHC.CM.PN ---
CM LTC SNF search continues; [facility] SN[facility] is following. SNF options are extremely limited r/t the Methadone. CM will follow.
--- NOTE | 2023-10-24 10:41 | HO.PM.IMPN ---
Subjective Subjective Date of Service: 10/24/23 Physical Exam Vital Signs: Vital Signs: Last Vital Signs Temp 97.2 F 10/24/23 06:56 Pulse 81 10/24/23 08:09 Resp 18 10/24/23 08:09 BP 135/67 10/24/23 06:56 Pulse Ox 96 10/24/23 06:56 O2 Del Method Nasal Cannula 10/24/23 06:56 O2 Flow Rate 0.5 10/24/23 06:56 BMI result Body Mass Index 25.0 Const: Other: Const: General: cooperative, healthy appearing and no acute distress Resp: Effort & Inspection: normal respiratory effort and able to speak in complete sentences Cardio: Rate: regular rate Peripheral pulses: Peripheral pulses 2+ throughout GI: Palpation (GI): Soft to palpationSkin: chronic skin findings Extrem: Other: Right shoulder dressing is c/d/i. Able to flex and extend digits. Sensation intact. Capillary refill is brisk. Objective Data Active Medications Acetaminophen (Acetaminophen 325 Mg Tablet) 975 mg PO Q6H PRN PRN Reason: Pain, Severe (Pain Scale 7-10) Last Admin: 10/23/23 22:06 Dose: 975 mg Documented By: TIMOTHY Albuterol Sulfate (Albuterol Sulfate 90 Mcg 8 Gm Inhaler) 2 puff INHALE Q4H PRN PRN Reason: Shortness Of Breath Or Wheezing Docusate Sodium (Docusate Sodium 100 Mg Capsule) 100 mg PO BID [facility] Fluticasone Propionate (Fluticasone Propionate 250 Mcg Blst.W.Dev) 1 puff INHALE RBID [facility] Last Admin: 10/24/23 08:07 Dose: 1 puff Documented By: ARANZA Daptomycin 640 mg/ Sodium (Chloride) 62.8 mls @ 100 mls/hr IV Q24H [facility] Last Infusion: 10/23/23 17:08 Dose: Infused Documented By: TIMOTHY Methadone HCl (Methadone Hcl 20 Mg/2 Ml Oral.Conc) 5 mg PO DAILY@1800 [facility] Last Admin: 10/23/23 17:12 Dose: 5 mg Documented By: TIMOTHY Methadone HCl (Methadone Hcl 20 Mg/2 Ml Oral.Conc) 25 mg PO DAILY [facility] Last Admin: 10/24/23 07:36 Dose: 25 mg Documented By: JOSE Montelukast Sodium (Montelukast Sodium 10 Mg Tablet) 10 mg PO DAILY [facility] Last Admin: 10/24/23 07:36 Dose: 10 mg Documented By: JOSE Polyethylene Glycol (Polyethylene Glycol 3350 17 Gm Powd.Pack) 17 gm PO BID [facility] Sodium Chloride (0.9 % Sodium Chloride Flush 3 Ml Syringe) 3 ml IVFLUSH QSHIFT [facility] Last Admin: 10/24/23 07:36 Dose: 3 ml Documented By: JOSE Tramadol HCl (Tramadol Hcl 50 Mg Tablet) 25 mg PO Q4H PRN PRN Reason: Pain, Severe (Pain Scale 7-10) Last Admin: 10/24/23 05:52 Dose: 25 mg Documented By: JANA Vitamin D (Cholecalciferol (Vitamin D3) 25 Mcg Tablet) 25 mcg PO DAILY [facility] Last Admin: 10/24/23 07:36 Dose: 25 mcg Documented By: JOSE Labs 10/20/23 09:04 10/24/23 06:28 Labs: Laboratory Results - last 24 hr 10/24/23 06:28 Anion Gap 10 L Estim Creat Clear Calc 84.4 Estimated GFR > 60 Fasting Glucose 58 L* Calcium 7.9 L Lactate Dehydrogenase 188 Total Creatine Kinase 13 L Microbiology Microbiology Results: Microbiology 10/19/23 05:45 Blood Culture - Final Blood - Venous No growth after 5 days. 10/19/23 05:45 Blood Culture - Final Blood - Venous No growth after 5 days. Assessment and Plan (1) Opioid use disorder: Status: Acute (2) Abscess of right shoulder: Status: Acute (3) Bacteremia due to Gram-positive bacteria: Status: Acute Plan 73F PMH COPD on home O2 (2L/min NC), hepatitis C, IV drug use, MRSA abscesses,?C.diff infection, E. coli colitis, osteomyelitis (humerus, clavicle, and scapula) with MSSA bacteremia (June 2023), coccyx chronic ulcer, occlusive bilat DVT, anemia and PUD. MRSA bacteremia 2/2 Osteomyelitis (humerus, clavicle and scapula) TTE : ef 55-60%, otherwise unchnaged from previous study. repeat blood cultures as all prev are positive, follow up 10/19/23 - negative to date Right shoulder ct scan:Large glenohumeral joint effusion with a lobulated extension. shoulder abcess drainged by Ortho team 10/16/23 d/w ID -switched to daptomycin(considering persistent mrsa bacteremia and shoulder abcess) cpk fine Acute kidney injury. resolved Chronic hypoxic failure 2/2 COPD Continue supplemental oxygen to keep oxygen saturation above 90%, nebs prn, Continue montelukast . Symptomatic anemia, suspecting GI blood loss. Patient has PUD and has been taking multiple doses of motrin daily for the last few days. She also takes Eliquis total 3 units prbc this admission Gi eval: Hold on EGD and colonoscopy for the meantime given her fraility and bactermia, ppi,moniter h/h for 24-48 hrs ,d/w hematology/Gi -patient has anemia/thrombocytopnia -currently hold eliquis. moniter h/h closely. Bilateral occlusive deep venous thrombosis. s/p ivc filter, Eliquis on hold-please see above (anemia/severe thrombocytopenia). History of hepatitic C viral load negative d/w hematology: thrombocytopenia also mutlifactroial -hepatitis c-possible liver dis /also has mrsa bacteremia History of IVDU. claims not using IV drugs.but utox positive for fentanyl/coacaine additction consult-continue methadone. Chronic decubitus ulcer, coccyx,elbow right . Healing: added wound care recommendations: DVT PPx SCDs reason for continued hospitalization: Pending safe discharge plan to a facility to finish IV antibiotics course. Quality Stroke Does the patient have a stroke diagnosis?: No VTE Prior VTE?: Yes VTE Risk Level:: Medical - moderate - high VTE Device Contraindication: Procedure Contraindicated VTE Drug Contraindication: Treatment Not Indicated
[2023-10-24] MEDS: Docusate Sodium 100 MG CAPSULE PO ×2 (11:28→21:20)
[2023-10-24] MEDS: polyethylene glycoL 3350 17 GM POWD.PACK PO ×2 (11:33→21:20)
--- NOTE | 2023-10-24 11:36 | MHC.CLN ---
F/U PO INTAKE IMPROVED RANGING FROM 50-100% DIET RX: REGULAR -APPROPRIATE PT RECEIVING ENSURE MAX BID TO PROMOTE WOUND HEALING SUPP PROVIDES 300KCALS, 60G PROTEIN WITH 100% ACCEPTANCE CONTINUE TO MONITOR PO INTAKE AND ENCOURAGE SUPPLEMENT
[2023-10-24] MEDS: methADONE HCl 20 MG/2 ML ORAL.CONC 5 MG PO (16:14)
[2023-10-24] MEDS: Acetaminophen 325 MG TABLET 975 MG PO (19:40)
[2023-10-24 21:55] LABS: Hematocrit 26.2 % (37.0-47.0); Hemoglobin 8.4 g/dl (12.0-16.0); Mean Corpuscular HGB Conc 32.1 g/dl (31.0-35.0); Mean Corpuscular Hemoglobin 32.3 pg (27.0-33.0); Mean Corpuscular Volume 100.8 fL (80.0-98.0); Mean Platelet Volume 10.6 fL (9.4-12.3); PLT CLUMP 1; Red Cell Distribution Width 14.6 % (11.0-16.0)
[2023-10-24 22:36] LABS: Platelet Count 233 X10*3/uL (160-400); White Blood Count 7.5 X10*3/uL (4.8-10.8)
[2023-10-24 23:42] LABS: Glucose, Whole Blood 75 mg/dL (60-115)
[2023-10-25] VITALS (8 sets, daily range): BP systolic 116–156; BP diastolic 53–82; PULSE 87–94; RESP 16–20; TEMP 36.4–37.4; O2SAT 96–100
[2023-10-25] MEDS: Cholecalciferol (Vitamin D3) 25 MCG TABLET PO (08:36)
[2023-10-25] MEDS: 0.9 % Sodium Chloride Flush 3 ML SYRINGE IVFLUSH ×3 (08:36→20:31)
[2023-10-25] MEDS: Montelukast Sodium 10 MG TABLET PO (08:36)
[2023-10-25] MEDS: Docusate Sodium 100 MG CAPSULE PO ×2 (08:36→20:31)
[2023-10-25] MEDS: polyethylene glycoL 3350 17 GM POWD.PACK PO ×2 (08:36→20:30)
[2023-10-25] MEDS: methADONE HCl 20 MG/2 ML ORAL.CONC 25 MG PO (08:36)
[2023-10-25] MEDS: Fluticasone Propionate 250 MCG BLST.W.DEV 1 PUFF INHALE ×2 (11:42→20:13)
[2023-10-25] MEDS: traMADoL HCL 50 MG TABLET 25 MG PO ×2 (13:02→20:30)
--- NOTE | 2023-10-25 13:49 | P.PNIM_ITS ---
Subjective Subjective Date of Service: 10/25/23 Interval History: Seen and evaluated this morning feels comfortable PICC in place , tolerating Abx no reported events overnight Review of Systems Review of Systems: Yes all other systems are reviewed and are negative Physical Exam 2 Vital Signs: Vital Signs: Last Vital Signs Temp 97.8 F 10/25/23 11:46 Pulse 94 10/25/23 11:46 Resp 18 10/25/23 11:46 BP 140/82 H 10/25/23 11:46 Pulse Ox 100 10/25/23 11:46 O2 Del Method Nasal Cannula 10/25/23 11:46 O2 Flow Rate 1 10/25/23 11:46 BMI result Body Mass Index 25.0 Const: Other: Const: General: cooperative, healthy appearing and no acute distress Resp: Effort & Inspection: normal respiratory effort and able to speak in complete sentences Cardio: Rate: regular rate Peripheral pulses: Peripheral pulses 2+ throughout GI: Palpation (GI): Soft to palpationSkin: chronic skin findings Extrem: Other: Right shoulder dressing is c/d/i. Able to flex and extend digits. Sensation intact. Objective Data Active Medications Acetaminophen (Acetaminophen 325 Mg Tablet) 975 mg PO Q6H PRN PRN Reason: Pain, Severe (Pain Scale 7-10) Last Admin: 10/24/23 19:40 Dose: 975 mg Documented By: TIMOTHY Albuterol Sulfate (Albuterol Sulfate 90 Mcg 8 Gm Inhaler) 2 puff INHALE Q4H PRN PRN Reason: Shortness Of Breath Or Wheezing Docusate Sodium (Docusate Sodium 100 Mg Capsule) 100 mg PO BID [facility] Last Admin: 10/25/23 08:36 Dose: 100 mg Documented By: NANCIE Fluticasone Propionate (Fluticasone Propionate 250 Mcg Blst.W.Dev) 1 puff INHALE RBID [facility] Last Admin: 10/25/23 11:42 Dose: 1 puff Documented By: ARMANI Daptomycin 640 mg/ Sodium (Chloride) 62.8 mls @ 100 mls/hr IV Q24H [facility] Stop: 11/09/23 15:59 Methadone HCl (Methadone Hcl 20 Mg/2 Ml Oral.Conc) 5 mg PO DAILY@1800 [facility] Last Admin: 10/24/23 16:14 Dose: 5 mg Documented By: HO.RIOSCEL Methadone HCl (Methadone Hcl 20 Mg/2 Ml Oral.Conc) 25 mg PO DAILY [facility] Last Admin: 10/25/23 08:36 Dose: 25 mg Documented By: NANCIE Montelukast Sodium (Montelukast Sodium 10 Mg Tablet) 10 mg PO DAILY [facility] Last Admin: 10/25/23 08:36 Dose: 10 mg Documented By: NANCIE Polyethylene Glycol (Polyethylene Glycol 3350 17 Gm Powd.Pack) 17 gm PO BID [facility] Last Admin: 10/25/23 08:36 Dose: 17 gm Documented By: NANCIE Sodium Chloride (0.9 % Sodium Chloride Flush 3 Ml Syringe) 3 ml IVFLUSH QSHIFT [facility] Last Admin: 10/25/23 08:36 Dose: 3 ml Documented By: NANCIE Tramadol HCl (Tramadol Hcl 50 Mg Tablet) 25 mg PO Q4H PRN PRN Reason: Pain, Severe (Pain Scale 7-10) Last Admin: 10/25/23 13:02 Dose: 25 mg Documented By: NANCIE Vitamin D (Cholecalciferol (Vitamin D3) 25 Mcg Tablet) 25 mcg PO DAILY [facility] Last Admin: 10/25/23 08:36 Dose: 25 mcg Documented By: NANCIE Labs 10/24/23 21:35 10/24/23 06:28 Labs: Laboratory Results - last 24 hr 10/24/23 10/24/23 21:35 23:36 MCV 100.8 H MCH 32.3 MCHC 32.1 RDW 14.6 Plt Count 233 MPV 10.6 Absolute Nucleated RBC 0.000 Nucleated RBC % (auto) 0.0 POC Glucose 75 Assessment and Plan (1) Opioid use disorder: Status: Acute (2) Abscess of right shoulder: Status: Acute (3) Bacteremia due to Gram-positive bacteria: Status: Acute (4) Osteomyelitis: Status: Acute Plan 73F PMH COPD on home O2 (2L/min [place]), hepatitis C, IV drug use, MRSA abscesses,?C.diff infection, E. coli colitis, osteomyelitis (humerus, clavicle, and scapula) with MSSA bacteremia (June 2023), coccyx chronic ulcer, occlusive bilat DVT, anemia and PUD. MRSA bacteremia 2/2 Osteomyelitis (humerus, clavicle and scapula) TTE 55-60%, repeat blood cultures 10/19/23 - negative Right shoulder ct scan:Large glenohumeral joint effusion with a lobulated extension. shoulder abcess drainged by Ortho team 10/16/23 d/w ID -switched to daptomycin(considering persistent mrsa bacteremia and shoulder abcess), to finish by 11/30/2023 to finish 6 weeks Abx. cpk fine Acute kidney injury. resolved Chronic hypoxic failure 2/2 COPD Continue supplemental oxygen to keep oxygen saturation above 90%, nebs prn, Continue montelukast . Symptomatic anemia, suspecting GI blood loss. Patient has PUD and has been taking multiple doses of motrin daily for the last few days. She also takes Eliquis total 3 units prbc this admission Gi eval: Hold on EGD and colonoscopy for the meantime given her fraility and bactermia, ppi,moniter h/h for 24-48 hrs ,d/w hematology/Gi PLT improved, restart Eliquis and monitor H&H moniter h/h closely. Bilateral occlusive deep venous thrombosis. s/p ivc filter restart Eliquis History of hepatitic C viral load negative d/w hematology: thrombocytopenia also mutlifactroial -hepatitis c-possible liver dis /also has mrsa bacteremia History of IVDU. claims not using IV drugs.but utox positive for fentanyl/coacaine additction consult-continue methadone. Chronic decubitus ulcer, coccyx,elbow right . Healing: added wound care recommendations: DVT PPx Eliquis reason for continued hospitalization: Pending safe discharge plan to a facility to finish IV antibiotics course. Quality Stroke Does the patient have a stroke diagnosis?: No VTE Prior VTE?: Yes VTE Risk Level:: Medical - moderate - high VTE Device Contraindication: Procedure Contraindicated VTE Drug Contraindication: Treatment Not Indicated
--- NOTE | 2023-10-25 16:09 | MHC.RECOVRN ---
Met with pt to check in and provide support. Pt laying in bed, awake, alert, engages in conversation, asking for Ciara Zapata. Pt reports things are okay, denies concerns regarding methadone/methadone dose. Pt denies questions or concerns for t/w. MQ to see pt tomorrow.
--- NOTE | 2023-10-25 16:16 | PC.NURSE ---
Midline dressing changed today 10/25/23 at 1600. Securement device and bio patch in place. pt tolerated well.
[2023-10-25] MEDS: methADONE HCl 20 MG/2 ML ORAL.CONC 5 MG PO (18:24)
[2023-10-25] MEDS: Apixaban 5 MG TABLET PO (20:31)
[2023-10-26] VITALS (7 sets, daily range): BP systolic 116–143; BP diastolic 63–76; PULSE 85–96; RESP 16–17; TEMP 36.2–36.9; O2SAT 91–98
[2023-10-26] MEDS: traMADoL HCL 50 MG TABLET 25 MG PO ×4 (03:29→19:55)
[2023-10-26] MEDS: Fluticasone Propionate 250 MCG BLST.W.DEV 1 PUFF INHALE ×2 (08:07→20:14)
[2023-10-26] MEDS: Montelukast Sodium 10 MG TABLET PO (08:26)
[2023-10-26] MEDS: Cholecalciferol (Vitamin D3) 25 MCG TABLET PO (08:26)
[2023-10-26] MEDS: Apixaban 5 MG TABLET PO ×2 (08:26→19:55)
[2023-10-26] MEDS: 0.9 % Sodium Chloride Flush 3 ML SYRINGE IVFLUSH ×2 (08:26→20:04)
[2023-10-26] MEDS: Docusate Sodium 100 MG CAPSULE PO ×2 (08:26→19:55)
[2023-10-26] MEDS: methADONE HCl 20 MG/2 ML ORAL.CONC 25 MG PO (08:26)
[2023-10-26] MEDS: polyethylene glycoL 3350 17 GM POWD.PACK PO ×2 (08:26→20:05)
--- NOTE | 2023-10-26 11:22 | MHC.CLN ---
F/U DIET=REGULAR-APPROPRIATE. RECEIVING ENSURE MAX BID (300 KCALS, 60 G PROTEIN) TO PROMOTE WOUND HEALING. PO INTAKE VARIABLE, 50-100%. SKIN WITH UNSTAGEABLE AREA TO COCCYX AND DTI TO BILATERAL HEELS.. CONTINUE TO MONITOR PO INTAKE AND SKIN INTEGRITY.
--- NOTE | 2023-10-26 12:14 | HO.PM.IMPN ---
Subjective Subjective Date of Service: 10/26/23 Interval History: Seen and evaluated this morning feels comfortable no reported events overnight Review of Systems Review of Systems: Yes all other systems are reviewed and are negative Physical Exam Vital Signs: Vital Signs: Last Vital Signs Temp 97.2 F 10/26/23 12:00 Pulse 91 10/26/23 12:00 Resp 16 10/26/23 12:00 BP 116/66 10/26/23 12:00 Pulse Ox 91 L 10/26/23 12:00 O2 Del Method Nasal Cannula 10/26/23 12:00 O2 Flow Rate 2 10/26/23 12:00 BMI result Body Mass Index 25.0 Const: Other: Const: General: cooperative, healthy appearing and no acute distress Resp: Effort & Inspection: normal respiratory effort and able to speak in complete sentences Cardio: Rate: regular rate Peripheral pulses: Peripheral pulses 2+ throughout GI: Palpation (GI): Soft to palpationSkin: chronic skin findings Extrem: Other: Right shoulder dressing is c/d/i. Able to flex and extend digits. Sensation intact. Objective Data Active Medications Acetaminophen (Acetaminophen 325 Mg Tablet) 975 mg PO Q6H PRN PRN Reason: Pain, Severe (Pain Scale 7-10) Last Admin: 10/24/23 19:40 Dose: 975 mg Documented By: TIMOTHY Albuterol Sulfate (Albuterol Sulfate 90 Mcg 8 Gm Inhaler) 2 puff INHALE Q4H PRN PRN Reason: Shortness Of Breath Or Wheezing Apixaban (Apixaban 5 Mg Tablet) 5 mg PO BID [facility] Last Admin: 10/26/23 08:26 Dose: 5 mg Documented By: NANCIE Docusate Sodium (Docusate Sodium 100 Mg Capsule) 100 mg PO BID [facility] Last Admin: 10/26/23 08:26 Dose: 100 mg Documented By: NANCIE Fluticasone Propionate (Fluticasone Propionate 250 Mcg Blst.W.Dev) 1 puff INHALE RBID [facility] Last Admin: 10/26/23 08:07 Dose: 1 puff Documented By: MARCIE Daptomycin 640 mg/ Sodium (Chloride) 62.8 mls @ 100 mls/hr IV Q24H [facility] Stop: 11/09/23 15:59 Last Infusion: 10/25/23 17:05 Dose: Infused Documented By: NANCIE Methadone HCl (Methadone Hcl 20 Mg/2 Ml Oral.Conc) 5 mg PO DAILY@1800 [facility] Last Admin: 10/25/23 18:24 Dose: 5 mg Documented By: NANCIE Methadone HCl (Methadone Hcl 20 Mg/2 Ml Oral.Conc) 25 mg PO DAILY [facility] Last Admin: 10/26/23 08:26 Dose: 25 mg Documented By: NANCIE Montelukast Sodium (Montelukast Sodium 10 Mg Tablet) 10 mg PO DAILY [facility] Last Admin: 10/26/23 08:26 Dose: 10 mg Documented By: NANCIE Polyethylene Glycol (Polyethylene Glycol 3350 17 Gm Powd.Pack) 17 gm PO BID [facility] Last Admin: 10/26/23 08:26 Dose: 17 gm Documented By: NANCIE Sodium Chloride (0.9 % Sodium Chloride Flush 3 Ml Syringe) 3 ml IVFLUSH QSHIFT [facility] Last Admin: 10/26/23 08:26 Dose: 3 ml Documented By: NANCIE Tramadol HCl (Tramadol Hcl 50 Mg Tablet) 25 mg PO Q4H PRN PRN Reason: Pain, Severe (Pain Scale 7-10) Last Admin: 10/26/23 11:22 Dose: 25 mg Documented By: NANCIE Vitamin D (Cholecalciferol (Vitamin D3) 25 Mcg Tablet) 25 mcg PO DAILY [facility] Last Admin: 10/26/23 08:26 Dose: 25 mcg Documented By: NANCIE Labs 10/24/23 21:35 10/24/23 06:28 Assessment and Plan (1) Osteomyelitis: Status: Acute (2) Bacteremia due to Gram-positive bacteria: Status: Acute Plan 73F PMH COPD on home O2 (2L/min [place]), hepatitis C, IV drug use, MRSA abscesses,?C.diff infection, E. coli colitis, osteomyelitis (humerus, clavicle, and scapula) with MSSA bacteremia (June 2023), coccyx chronic ulcer, occlusive bilat DVT, anemia and PUD. MRSA bacteremia 2/2 Osteomyelitis (humerus, clavicle and scapula) TTE 55-60%, repeat blood cultures 10/19/23 - negative Right shoulder ct scan:Large glenohumeral joint effusion with a lobulated extension. shoulder abcess drainged by Ortho team 10/16/23 d/w ID -switched to daptomycin(considering persistent mrsa bacteremia and shoulder abcess), to finish by 11/30/2023 to finish 6 weeks Abx. cpk fine Acute kidney injury. resolved Chronic hypoxic failure 2/2 COPD Continue supplemental oxygen to keep oxygen saturation above 90%, nebs prn, Continue montelukast . Symptomatic anemia, suspecting GI blood loss. Patient has PUD and has been taking multiple doses of motrin daily for the last few days. She also takes Eliquis total 3 units prbc this admission Gi eval: Hold on EGD and colonoscopy for the meantime given her fraility and bactermia, ppi,moniter h/h for 24-48 hrs ,d/w hematology/Gi PLT improved, restart Eliquis and monitor H&H moniter h/h closely. Bilateral occlusive deep venous thrombosis. s/p ivc filter restart Eliquis History of hepatitic C viral load negative d/w hematology: thrombocytopenia also mutlifactroial -hepatitis c-possible liver dis /also has mrsa bacteremia History of IVDU. claims not using IV drugs.but utox positive for fentanyl/coacaine additction consult-continue methadone. Chronic decubitus ulcer, coccyx,elbow right . Healing: added wound care recommendations: DVT PPx Eliquis reason for continued hospitalization: Pending safe discharge plan to a facility to finish IV antibiotics course. Quality Stroke Does the patient have a stroke diagnosis?: No VTE Prior VTE?: Yes VTE Risk Level:: Medical - moderate - high VTE Device Contraindication: Procedure Contraindicated VTE Drug Contraindication: Treatment Not Indicated
[2023-10-26] MEDS: Acetaminophen 325 MG TABLET 975 MG PO (15:34)
[2023-10-27 03:49] VITALS: BP 138/78; PULSE 85; RESP 16; TEMP 36.8; O2SAT 96
[2023-10-27] MEDS: traMADoL HCL 50 MG TABLET 25 MG PO (06:28)
[2023-10-27] MEDS: 0.9 % Sodium Chloride Flush 3 ML SYRINGE IVFLUSH ×2 (07:42→16:57)
[2023-10-27 07:45] VITALS: BP 137/78; PULSE 82; RESP 14; TEMP 36.6; O2SAT 95
[2023-10-27] MEDS: Fluticasone Propionate 250 MCG BLST.W.DEV 1 PUFF INHALE ×2 (07:50→20:01)
[2023-10-27 07:51] VITALS: PULSE 90; RESP 16; O2SAT 96
[2023-10-27] MEDS: Acetaminophen 325 MG TABLET 975 MG PO (08:03)
[2023-10-27] MEDS: polyethylene glycoL 3350 17 GM POWD.PACK PO ×2 (08:04→20:05)
[2023-10-27] MEDS: Montelukast Sodium 10 MG TABLET PO (08:04)
[2023-10-27] MEDS: Docusate Sodium 100 MG CAPSULE PO ×2 (08:05→20:05)
[2023-10-27] MEDS: methADONE HCl 20 MG/2 ML ORAL.CONC 25 MG PO (08:05)
[2023-10-27] MEDS: Cholecalciferol (Vitamin D3) 25 MCG TABLET PO (08:05)
[2023-10-27] MEDS: Apixaban 5 MG TABLET PO ×2 (08:05→20:05)
--- NOTE | 2023-10-27 08:26 | P.PNIM_ITS ---
Subjective Subjective Date of Service: 10/27/23 Interval History: Seen and evaluated this morning feels comfortable overall but has pain in her clavicle no reported events overnight Review of Systems Review of Systems: Yes all other systems are reviewed and are negative Physical Exam 2 Vital Signs: Vital Signs: Last Vital Signs Temp 97.8 F 10/27/23 07:45 Pulse 90 10/27/23 07:51 Resp 16 10/27/23 07:51 BP 137/78 10/27/23 07:45 Pulse Ox 95 10/27/23 07:45 O2 Del Method Nasal Cannula 10/27/23 07:45 O2 Flow Rate 1 10/27/23 07:45 BMI result Body Mass Index 25.0 Const: Other: Const: General: cooperative, healthy appearing and no acute distress Resp: Effort & Inspection: normal respiratory effort and able to speak in complete sentences Cardio: Rate: regular rate Peripheral pulses: Peripheral pulses 2+ throughout GI: Palpation (GI): Soft to palpationSkin: chronic skin findings Extrem: Other: Right shoulder dressing is c/d/i. Able to flex and extend digits. Sensation intact. Objective Data Active Medications Acetaminophen (Acetaminophen 325 Mg Tablet) 975 mg PO Q6H PRN PRN Reason: Pain, Severe (Pain Scale 7-10) Last Admin: 10/27/23 08:03 Dose: 975 mg Documented By: HENRIK Albuterol Sulfate (Albuterol Sulfate 90 Mcg 8 Gm Inhaler) 2 puff INHALE Q4H PRN PRN Reason: Shortness Of Breath Or Wheezing Apixaban (Apixaban 5 Mg Tablet) 5 mg PO BID [facility] Last Admin: 10/27/23 08:05 Dose: 5 mg Documented By: HENRIK Docusate Sodium (Docusate Sodium 100 Mg Capsule) 100 mg PO BID [facility] Last Admin: 10/27/23 08:05 Dose: 100 mg Documented By: HENRIK Fluticasone Propionate (Fluticasone Propionate 250 Mcg Blst.W.Dev) 1 puff INHALE RBID [facility] Last Admin: 10/27/23 07:50 Dose: 1 puff Documented By: BETTY Daptomycin 640 mg/ Sodium (Chloride) 62.8 mls @ 100 mls/hr IV Q24H [facility] Stop: 11/09/23 15:59 Last Infusion: 10/26/23 16:05 Dose: Infused Documented By: NANCIE Methadone HCl (Methadone Hcl 20 Mg/2 Ml Oral.Conc) 25 mg PO DAILY [facility] Last Admin: 10/27/23 08:05 Dose: 25 mg Documented By: HENRIK Montelukast Sodium (Montelukast Sodium 10 Mg Tablet) 10 mg PO DAILY [facility] Last Admin: 10/27/23 08:04 Dose: 10 mg Documented By: HENRIK Polyethylene Glycol (Polyethylene Glycol 3350 17 Gm Powd.Pack) 17 gm PO BID [facility] Last Admin: 10/27/23 08:04 Dose: 17 gm Documented By: HENRIK Sodium Chloride (0.9 % Sodium Chloride Flush 3 Ml Syringe) 3 ml IVFLUSH QSHIFT [facility] Last Admin: 10/27/23 07:42 Dose: 3 ml Documented By: HENRIK Tramadol HCl (Tramadol Hcl 50 Mg Tablet) 25 mg PO Q4H PRN PRN Reason: Pain, Severe (Pain Scale 7-10) Last Admin: 10/27/23 06:28 Dose: 25 mg Documented By: NORI Vitamin D (Cholecalciferol (Vitamin D3) 25 Mcg Tablet) 25 mcg PO DAILY [facility] Last Admin: 10/27/23 08:05 Dose: 25 mcg Documented By: HENRIK Labs 10/24/23 21:35 10/24/23 06:28 Assessment and Plan (1) Osteomyelitis: Status: Acute (2) Bacteremia due to Gram-positive bacteria: Status: Acute Plan 73F PMH COPD on home O2 (2L/min [place]), hepatitis C, IV drug use, MRSA abscesses,?C.diff infection, E. coli colitis, osteomyelitis (humerus, clavicle, and scapula) with MSSA bacteremia (June 2023), coccyx chronic ulcer, occlusive bilat DVT, anemia and PUD. MRSA bacteremia 2/2 Osteomyelitis (humerus, clavicle and scapula) TTE 55-60%, repeat blood cultures 10/19/23 - negative Right shoulder ct scan:Large glenohumeral joint effusion with a lobulated extension. shoulder abcess drainged by Ortho team 10/16/23 d/w ID - Daptomycin, to finish by 11/30/2023 to finish 6 weeks Abx. cpk weekly Acute kidney injury. resolved Chronic hypoxic failure 2/2 COPD Continue supplemental oxygen to keep oxygen saturation above 90%, nebs prn, Continue montelukast . Symptomatic anemia, suspecting GI blood loss. Patient has PUD and has been taking multiple doses of motrin daily for the last few days. She also takes Eliquis total 3 units prbc this admission Gi eval: Hold on EGD and colonoscopy for the meantime given her fraility and bactermia, ppi,moniter h/h for 24-48 hrs ,d/w hematology/Gi PLT improved, restart Eliquis and monitor H&H moniter h/h closely. Bilateral occlusive deep venous thrombosis. s/p ivc filter restart Eliquis History of hepatitic C viral load negative d/w hematology: thrombocytopenia also mutlifactroial -hepatitis c-possible liver dis /also has mrsa bacteremia History of IVDU. claims not using IV drugs.but utox positive for fentanyl/coacaine additction consult-continue methadone. Chronic decubitus ulcer, coccyx,elbow right . Healing: added wound care recommendations: DVT PPx Eliquis reason for continued hospitalization: Pending safe discharge plan to a facility to finish IV antibiotics course. Quality Stroke Does the patient have a stroke diagnosis?: No VTE Prior VTE?: Yes VTE Risk Level:: Medical - moderate - high VTE Device Contraindication: Procedure Contraindicated VTE Drug Contraindication: Treatment Not Indicated
[2023-10-27 09:33] LABS: Hematocrit 25.2 % (37.0-47.0); Hemoglobin 8.2 g/dl (12.0-16.0); Mean Corpuscular HGB Conc 32.5 g/dl (31.0-35.0); Mean Corpuscular Hemoglobin 32.5 pg (27.0-33.0); Mean Platelet Volume 9.8 fL (9.4-12.3); Platelet Count 268 X10*3/uL (160-400); Red Blood Count 2.52 X10*6/uL (4.20-5.50); Red Cell Distribution Width 14.4 % (11.0-16.0); White Blood Count 6.1 X10*3/uL (4.8-10.8)
[2023-10-27 10:34] LABS: Anion Gap 12 (12-20); Blood Urea Nitrogen 10 mg/dL (9-16); Calcium 8.4 mg/dL (8.4-10.2); Carbon Dioxide 28 mmol/L (22-29); Chloride 97 mmol/L (96-108); Creatinine Clr Calc Pharmacy 70.4; Estimated Glomerular Filt Rate > 60; Glucose Random 55 mg/dL (60-115); Sodium 133 mmol/L (135-145)
[2023-10-27 10:54] LABS: Glucose, Whole Blood 54 mg/dL (60-115)
[2023-10-27 11:20] LABS: Glucose, Whole Blood 76 mg/dL (60-115)
[2023-10-27] MEDS: oxyCODONE HCl Immed Release 5 MG TABLET PO ×2 (12:19→20:05)
[2023-10-27 16:00] VITALS: BP 150/70; PULSE 86; RESP 14; TEMP 36.7; O2SAT 97
[2023-10-27 18:22] VITALS: BP 146/76; PULSE 76; RESP 16; TEMP 36.3; O2SAT 94
[2023-10-27 20:01] VITALS: PULSE 76; RESP 16; O2SAT 94
[2023-10-28] VITALS (10 sets, daily range): BP systolic 128–169; BP diastolic 59–87; PULSE 78–88; RESP 16–20; TEMP 36.3–37.1; O2SAT 97–98
[2023-10-28] MEDS: 0.9 % Sodium Chloride Flush 3 ML SYRINGE IVFLUSH ×3 (04:59→15:54)
[2023-10-28] MEDS: oxyCODONE HCl Immed Release 5 MG TABLET PO ×3 (05:11→22:52)
[2023-10-28 06:47] LABS: Hematocrit 23.7 % (37.0-47.0); Hemoglobin 7.7 g/dl (12.0-16.0); Mean Corpuscular HGB Conc 32.5 g/dl (31.0-35.0); Mean Corpuscular Hemoglobin 32.8 pg (27.0-33.0); Mean Corpuscular Volume 100.9 fL (80.0-98.0); Mean Platelet Volume 10.5 fL (9.4-12.3); Platelet Count 255 X10*3/uL (160-400); Red Blood Count 2.35 X10*6/uL (4.20-5.50); Red Cell Distribution Width 14.3 % (11.0-16.0); White Blood Count 6.2 X10*3/uL (4.8-10.8)
[2023-10-28 07:29] LABS: Anion Gap 13 (12-20); Blood Urea Nitrogen 11 mg/dL (9-16); Calcium 8.1 mg/dL (8.4-10.2); Carbon Dioxide 28 mmol/L (22-29); Chloride 95 mmol/L (96-108); Creatinine Clr Calc Pharmacy 74.9; Estimated Glomerular Filt Rate > 60; Glucose Random 56 mg/dL (60-115); Potassium 4.2 mmol/L (3.3-5.1); Sodium 132 mmol/L (135-145)
[2023-10-28] MEDS: Fluticasone Propionate 250 MCG BLST.W.DEV 1 PUFF INHALE ×2 (07:46→19:31)
[2023-10-28 08:03] LABS: Glucose, Whole Blood 77 mg/dL (60-115)
[2023-10-28 08:37] LABS: Iron 21 mcg/dL (30-160); Percent Iron Saturation 37 % (15-50); Total Iron Binding Capacity 57 mcg/dL (228-428); Unsaturated Iron Binding 36 ug/dL
[2023-10-28] MEDS: Montelukast Sodium 10 MG TABLET PO (09:18)
[2023-10-28] MEDS: methADONE HCl 20 MG/2 ML ORAL.CONC 25 MG PO (09:18)
[2023-10-28] MEDS: Cholecalciferol (Vitamin D3) 25 MCG TABLET PO (09:18)
[2023-10-28] MEDS: Apixaban 5 MG TABLET PO (09:19)
[2023-10-28] MEDS: Docusate Sodium 100 MG CAPSULE PO ×2 (09:19→21:52)
[2023-10-28] MEDS: polyethylene glycoL 3350 17 GM POWD.PACK PO ×2 (09:21→21:51)
--- NOTE | 2023-10-28 10:08 | P.PNIM_ITS ---
Subjective Subjective Date of Service: 10/28/23 Interval History: Seen and evaluated this morning complaining of back pain Hb dropped to 7.7 , no reported bleeding no reported events overnight Review of Systems Review of Systems: Yes all other systems are reviewed and are negative Physical Exam 2 Vital Signs: Vital Signs: Last Vital Signs Temp 97.8 F 10/28/23 07:41 Pulse 80 10/28/23 07:48 Resp 16 10/28/23 07:48 BP 132/62 10/28/23 07:41 Pulse Ox 97 10/28/23 07:41 O2 Del Method Nasal Cannula 10/28/23 07:41 O2 Flow Rate 1 10/28/23 07:41 BMI result Body Mass Index 25.0 Const: Other: Const: General: cooperative, healthy appearing and no acute distress Resp: Effort & Inspection: normal respiratory effort and able to speak in complete sentences Cardio: Rate: regular rate Peripheral pulses: Peripheral pulses 2+ throughout GI: Palpation (GI): Soft to palpationSkin: chronic skin findings Extrem: Other: Right shoulder dressing is c/d/i. Able to flex and extend digits. Sensation intact. Objective Data Active Medications Acetaminophen (Acetaminophen 325 Mg Tablet) 975 mg PO QSHIFT COUNTS INCLUDE 234 BEDS AT THE [facility] Albuterol Sulfate (Albuterol Sulfate 90 Mcg 8 Gm Inhaler) 2 puff INHALE Q4H PRN PRN Reason: Shortness Of Breath Or Wheezing Apixaban (Apixaban 5 Mg Tablet) 5 mg PO BID COUNTS INCLUDE 234 BEDS AT THE [facility] Last Admin: 10/28/23 09:19 Dose: 5 mg Documented By: HENRIK Docusate Sodium (Docusate Sodium 100 Mg Capsule) 100 mg PO BID COUNTS INCLUDE 234 BEDS AT THE [facility] Last Admin: 10/28/23 09:19 Dose: 100 mg Documented By: HENRIK Fluticasone Propionate (Fluticasone Propionate 250 Mcg Blst.W.Dev) 1 puff INHALE RBID COUNTS INCLUDE 234 BEDS AT THE [facility] Last Admin: 10/28/23 07:46 Dose: 1 puff Documented By: BETTY Daptomycin 640 mg/ Sodium (Chloride) 62.8 mls @ 100 mls/hr IV Q24H COUNTS INCLUDE 234 BEDS AT THE [facility] Stop: 11/09/23 15:59 Last Infusion: 10/27/23 17:43 Dose: Infused Documented By: HENRIK Sodium Chloride (Ns) 100 mls @ 100 mls/hr IV ONCE ONE Stop: 10/28/23 10:31 Sodium Chloride (Ns) 100 mls @ 100 mls/hr IV ONCE ONE Stop: 10/28/23 10:28 Lidocaine (Lidocaine 4 % Patch Adh..Patch) 1 patch TRANSDERMA DAILY COUNTS INCLUDE 234 BEDS AT THE [facility]; Protocol Methadone HCl (Methadone Hcl 20 Mg/2 Ml Oral.Conc) 25 mg PO DAILY COUNTS INCLUDE 234 BEDS AT THE [facility] Last Admin: 10/28/23 09:18 Dose: 25 mg Documented By: HENRIK Montelukast Sodium (Montelukast Sodium 10 Mg Tablet) 10 mg PO DAILY COUNTS INCLUDE 234 BEDS AT THE [facility] Last Admin: 10/28/23 09:18 Dose: 10 mg Documented By: HENRIK Oxycodone HCl (Oxycodone Hcl Immed Release 5 Mg Tablet) 5 mg PO Q8H PRN PRN Reason: Pain, Severe (Pain Scale 7-10) Last Admin: 10/28/23 05:11 Dose: 5 mg Documented By: NORI Polyethylene Glycol (Polyethylene Glycol 3350 17 Gm Powd.Pack) 17 gm PO BID COUNTS INCLUDE 234 BEDS AT THE [facility] Last Admin: 10/28/23 09:21 Dose: 17 gm Documented By: HENRIK Sodium Chloride (0.9 % Sodium Chloride Flush 3 Ml Syringe) 3 ml IVFLUSH QSHIFT COUNTS INCLUDE 234 BEDS AT THE [facility] Last Admin: 10/28/23 09:18 Dose: 3 ml Documented By: HENRIK Vitamin D (Cholecalciferol (Vitamin D3) 25 Mcg Tablet) 25 mcg PO DAILY COUNTS INCLUDE 234 BEDS AT THE [facility] Last Admin: 10/28/23 09:18 Dose: 25 mcg Documented By: HENRIK Zolpidem Tartrate (Zolpidem Tartrate 5 Mg Tablet) 5 mg PO BEDTIME COUNTS INCLUDE 234 BEDS AT THE [facility] Labs 10/28/23 05:14 10/28/23 05:14 Labs: Laboratory Results - last 24 hr 10/27/23 10/27/23 10/27/23 09:27 10:51 11:16 MCV MCH MCHC RDW Plt Count MPV Absolute Nucleated RBC Nucleated RBC % (auto) Anion Gap 12 Estim Creat Clear Calc 70.4 Estimated GFR > 60 POC Glucose 54 L* 76 Random Glucose 55 L* Calcium 8.4 D Iron TIBC % Saturation Unsat Iron Binding 10/28/23 10/28/23 05:14 08:00 MCV 100.9 H MCH 32.8 MCHC 32.5 RDW 14.3 Plt Count 255 MPV 10.5 Absolute Nucleated RBC 0.000 Nucleated RBC % (auto) 0.0 Anion Gap 13 Estim Creat Clear Calc 74.9 Estimated GFR > 60 POC Glucose 77 Random Glucose 56 L* Calcium 8.1 L Iron 21 L TIBC 57 L % Saturation 37 Unsat Iron Binding 36 Assessment and Plan (1) Osteomyelitis: Status: Acute (2) Bacteremia due to Gram-positive bacteria: Status: Acute (3) Acute on chronic anemia: Status: Chronic Plan 73F PMH COPD on home O2 (2L/min NC), hepatitis C, IV drug use, MRSA abscesses,?C.diff infection, E. coli colitis, osteomyelitis (humerus, clavicle, and scapula) with MSSA bacteremia (June 2023), coccyx chronic ulcer, occlusive bilat DVT, anemia and PUD. Acute on chronic blood loss anemia 2/2 GI blood loss. Patient has PUD on EGD from Aug 2023 Hb dropped to 7.7 today total 3 units prbc this admission, to give a 4th unit Discussed again w GI dr Martinez, moniter h/h, PPI Hold Eliquis monitor H&H MRSA bacteremia 2/2 Osteomyelitis (humerus, clavicle and scapula) TTE 55-60%, repeat blood cultures 10/19/23 - negative Right shoulder ct scan:Large glenohumeral joint effusion with a lobulated extension. shoulder abcess drainged by Ortho team 10/16/23 d/w ID - Daptomycin, to finish by 11/30/2023 to finish 6 weeks Abx. cpk weekly Acute kidney injury. resolved Chronic hypoxic failure 2/2 COPD Continue supplemental oxygen to keep oxygen saturation above 90%, nebs prn, Continue montelukast . Bilateral occlusive deep venous thrombosis. s/p ivc filter restart Eliquis History of hepatitic C viral load negative d/w hematology: thrombocytopenia also mutlifactroial -hepatitis c-possible liver dis /also has mrsa bacteremia History of IVDU. claims not using IV drugs.but utox positive for fentanyl/coacaine additction consult-continue methadone. Chronic decubitus ulcer, coccyx,elbow right . Healing: added wound care recommendations: DVT PPx Eliquis reason for continued hospitalization: Pending safe discharge plan to a facility to finish IV antibiotics course. Quality Stroke Does the patient have a stroke diagnosis?: No VTE Prior VTE?: Yes VTE Risk Level:: Medical - moderate - high VTE Device Contraindication: Procedure Contraindicated VTE Drug Contraindication: Treatment Not Indicated
[2023-10-28] MEDS: Acetaminophen 325 MG TABLET 975 MG PO ×3 (11:05→23:37)
[2023-10-28] MEDS: Lidocaine 4 % Patch ADH..PATCH 1 PATCH TRANSDERMA (11:06)
[2023-10-28] MEDS: Omeprazole 40 MG CAPSULE.DR PO ×2 (11:06→15:53)
--- NOTE | 2023-10-28 16:46 | MHC.RECOVRN ---
Met with pt to check in and provide support. Pt laying in bed, awake, alert, engages in conversation and states she is comfortable but is concerned about being on pain meds and methadone with h/o addiction. Education and reassurance provided and pt would like to further discuss with provider Ciara Urbina updated. Pt denies any further questions/concerns. Team is availalbe for support as needed.
--- NOTE | 2023-10-28 18:17 | PC.NURSE ---
Pt. refused type and screen lab work per Phlebotomy. This Nurse talk to the pt. and pt. willing to have blood drawn, phlebotomy called and labs were drawn late. 1 unit OF PRBC was given and finished on day shift.
[2023-10-28] MEDS: Zolpidem Tartrate 5 MG TABLET PO (21:52)
[2023-10-29] VITALS (8 sets, daily range): BP systolic 106–147; BP diastolic 72–86; PULSE 80–84; RESP 16–22; TEMP 36.2–37.4; O2SAT 95–99
[2023-10-29] MEDS: Omeprazole 40 MG CAPSULE.DR PO ×2 (05:51→16:20)
[2023-10-29] MEDS: Fluticasone Propionate 250 MCG BLST.W.DEV 1 PUFF INHALE ×2 (07:51→19:53)
[2023-10-29] MEDS: polyethylene glycoL 3350 17 GM POWD.PACK PO (08:10)
[2023-10-29] MEDS: methADONE HCl 20 MG/2 ML ORAL.CONC 25 MG PO (08:11)
[2023-10-29] MEDS: Montelukast Sodium 10 MG TABLET PO (08:11)
[2023-10-29] MEDS: Acetaminophen 325 MG TABLET 975 MG PO ×2 (08:11→16:20)
[2023-10-29] MEDS: Heparin Sodium,Porcine Flush 50 UNITS/5 ML SYRINGE IVFLUSH ×2 (08:11→20:16)
[2023-10-29] MEDS: Cholecalciferol (Vitamin D3) 25 MCG TABLET PO (08:12)
[2023-10-29] MEDS: Lidocaine 4 % Patch ADH..PATCH 1 PATCH TRANSDERMA (08:12)
[2023-10-29] MEDS: 0.9 % Sodium Chloride Flush 3 ML SYRINGE IVFLUSH ×2 (08:12→16:20)
[2023-10-29] MEDS: Docusate Sodium 100 MG CAPSULE PO (08:12)
--- NOTE | 2023-10-29 11:11 | MHC.CLN ---
F/U DIET=REGULAR-APPROPRIATE. RECEIVING ENSURE MAX BID (300 KCALS, 60 G PROTEIN) TO PROMOTE WOUND HEALING. PO INTAKE VARIABLE, 50-100%. APPEARS TO BE USUAL INTAKE. SKIN WITH UNSTAGEABLE AREA TO COCCYX AND DTI TO BILATERAL HEELS. CONTINUE TO MONITOR PO INTAKE AND SKIN INTEGRITY.
[2023-10-29] MEDS: oxyCODONE HCl Immed Release 5 MG TABLET PO ×2 (11:13→19:19)
--- NOTE | 2023-10-29 11:35 | HO.PM.IMPN ---
Subjective Subjective Date of Service: 10/29/23 Interval History: Seen and evaluated this morning complaining of back pain transfused 1 unit PRBCs no reported events overnight Review of Systems Review of Systems: Yes all other systems are reviewed and are negative Physical Exam Vital Signs: Vital Signs: Last Vital Signs Temp 98.2 F 10/29/23 07:26 Pulse 84 10/29/23 07:52 Resp 16 10/29/23 07:52 BP 139/80 10/29/23 07:26 Pulse Ox 95 10/29/23 07:26 O2 Del Method Nasal Cannula 10/29/23 07:26 O2 Flow Rate 1 10/29/23 07:26 BMI result Body Mass Index 25.0 Const: Other: Const: General: cooperative, healthy appearing and no acute distress Resp: Effort & Inspection: normal respiratory effort and able to speak in complete sentences Cardio: Rate: regular rate Peripheral pulses: Peripheral pulses 2+ throughout GI: Palpation (GI): Soft to palpationSkin: chronic skin findings Extrem: Other: Right shoulder dressing is c/d/i. Able to flex and extend digits. Sensation intact. Objective Data Active Medications Acetaminophen (Acetaminophen 325 Mg Tablet) 975 mg PO QSHIFT [facility] Last Admin: 10/29/23 08:11 Dose: 975 mg Documented By: NANCIE Albuterol Sulfate (Albuterol Sulfate 90 Mcg 8 Gm Inhaler) 2 puff INHALE Q4H PRN PRN Reason: Shortness Of Breath Or Wheezing Apixaban (Apixaban 5 Mg Tablet) 5 mg PO BID [facility] Last Admin: 10/28/23 09:19 Dose: 5 mg Documented By: HENRIK Docusate Sodium (Docusate Sodium 100 Mg Capsule) 100 mg PO BID [facility] Last Admin: 10/29/23 08:12 Dose: 100 mg Documented By: NANCIE Fluticasone Propionate (Fluticasone Propionate 250 Mcg Blst.W.Dev) 1 puff INHALE RBID [facility] Last Admin: 10/29/23 07:51 Dose: 1 puff Documented By: ARANZA Heparin Sodium (Porcine) (Heparin Sodium,Porcine Flush 50 Units/5 Ml Syringe) 50 units IVFLUSH BID [facility] Last Admin: 10/29/23 08:11 Dose: 50 units Documented By: NANCIE Daptomycin 640 mg/ Sodium (Chloride) 62.8 mls @ 100 mls/hr IV Q24H [facility] Stop: 11/09/23 15:59 Last Infusion: 10/28/23 19:53 Dose: Infused Documented By: TREVER Lidocaine (Lidocaine 4 % Patch Adh..Patch) 1 patch TRANSDERMA DAILY [facility]; Protocol Last Admin: 10/29/23 08:12 Dose: 1 patch Documented By: NANCIE Methadone HCl (Methadone Hcl 20 Mg/2 Ml Oral.Conc) 25 mg PO DAILY [facility] Last Admin: 10/29/23 08:11 Dose: 25 mg Documented By: NANCIE Montelukast Sodium (Montelukast Sodium 10 Mg Tablet) 10 mg PO DAILY [facility] Last Admin: 10/29/23 08:11 Dose: 10 mg Documented By: NANCIE Omeprazole (Omeprazole 40 Mg Capsule.Dr) 40 mg PO BID@0630,1630 [facility] Last Admin: 10/29/23 05:51 Dose: 40 mg Documented By: TREVER Oxycodone HCl (Oxycodone Hcl Immed Release 5 Mg Tablet) 5 mg PO Q8H PRN PRN Reason: Pain, Severe (Pain Scale 7-10) Last Admin: 10/29/23 11:13 Dose: 5 mg Documented By: NANCIE Polyethylene Glycol (Polyethylene Glycol 3350 17 Gm Powd.Pack) 17 gm PO BID [facility] Last Admin: 10/29/23 08:10 Dose: 17 gm Documented By: NANCIE Sodium Chloride (0.9 % Sodium Chloride Flush 3 Ml Syringe) 3 ml IVFLUSH QSHIFT [facility] Last Admin: 10/29/23 08:12 Dose: 3 ml Documented By: NANCIE Vitamin D (Cholecalciferol (Vitamin D3) 25 Mcg Tablet) 25 mcg PO DAILY [facility] Last Admin: 10/29/23 08:12 Dose: 25 mcg Documented By: NANCIE Zolpidem Tartrate (Zolpidem Tartrate 5 Mg Tablet) 5 mg PO BEDTIME [facility] Last Admin: 10/28/23 21:52 Dose: 5 mg Documented By: TREVER Labs 10/29/23 13:20 10/28/23 05:14 Labs: Laboratory Results - last 24 hr 10/28/23 13:21 Blood Type AB Positive Antibody Screen NEGATIVE Crossmatch See Detail Assessment and Plan (1) Osteomyelitis: Status: Acute (2) Bacteremia due to Gram-positive bacteria: Status: Acute Plan 73F PMH COPD on home O2 (2L/min NC), hepatitis C, IV drug use, MRSA abscesses,?C.diff infection, E. coli colitis, osteomyelitis (humerus, clavicle, and scapula) with MSSA bacteremia (June 2023), coccyx chronic ulcer, occlusive bilat DVT, anemia and PUD. Acute on chronic blood loss anemia 2/2 GI blood loss. Patient has PUD on EGD from Aug 2023 pending repeat CBC total 3 units prbc this admission, to give a 4th unit Discussed again w GI dr Martinez, moniter h/h, PPI Hold Eliquis monitor H&H MRSA bacteremia 2/2 Osteomyelitis (humerus, clavicle and scapula) TTE 55-60%, repeat blood cultures 10/19/23 - negative Right shoulder ct scan:Large glenohumeral joint effusion with a lobulated extension. shoulder abcess drainged by Ortho team 10/16/23 d/w ID - Daptomycin, to finish by 11/30/2023 to finish 6 weeks Abx. cpk weekly Acute kidney injury. resolved Chronic hypoxic failure 2/2 COPD Continue supplemental oxygen to keep oxygen saturation above 90%, nebs prn, Continue montelukast . Bilateral occlusive deep venous thrombosis. s/p ivc filter restart Eliquis History of hepatitic C viral load negative d/w hematology: thrombocytopenia also mutlifactroial -hepatitis c-possible liver dis /also has mrsa bacteremia History of IVDU. claims not using IV drugs.but utox positive for fentanyl/coacaine additction consult-continue methadone. Chronic decubitus ulcer, coccyx,elbow right . Healing: added wound care recommendations: DVT PPx Eliquis reason for continued hospitalization: Pending safe discharge plan to a facility to finish IV antibiotics course. Quality Stroke Does the patient have a stroke diagnosis?: No VTE Prior VTE?: Yes VTE Risk Level:: Medical - moderate - high VTE Device Contraindication: Procedure Contraindicated VTE Drug Contraindication: Treatment Not Indicated
[2023-10-29 13:33] LABS: Hematocrit 33.3 % (37.0-47.0); Hemoglobin 11.3 g/dl (12.0-16.0); Mean Corpuscular HGB Conc 33.9 g/dl (31.0-35.0); Mean Corpuscular Volume 94.3 fL (80.0-98.0); Mean Platelet Volume 10.3 fL (9.4-12.3); NRBC Pct Auto 0.3 /100WBC (0.0-0.2); PLT CLUMP 1; Red Blood Count 3.53 X10*6/uL (4.20-5.50); Red Cell Distribution Width 15.7 % (11.0-16.0)
--- NOTE | 2023-10-29 13:34 | MHC.CM.PN ---
Addendum entered by Brenda Baker RN 10/29/23 14:44: This CM spoke with Gustavo Cutler. Per Loyda, patient has a LTC benefit, will need auth, and should not have any out of pocket costs. Loyda recommended [facility] - referral is already in. CM will continue to follow. Original Note: EMR REVIEWED. CM IS CONTINUING LTC SEARCH, ADDITIONAL REFERRALS PLACED TODAY. METHADONE IS A BARRIER - THIS CM REACHED OUT TO ADDICTION TEAM TO DISCUSS POSSIBILITY OF WEANING OFF METHADONE. ADDICTION TEAM MET WITH PATIENT AND PATIENT IS NOT AGREEABLE. CM LEFT MESSAGE FOR GUSTAVO CUTLER [phone] - TO CLARIFY LTC BENEFITS AND FOR ASSISTANCE WITH PLACEMENT. NO BED OFFERS AT THIS TIME. CM WILL CONTINUE TO FOLLOW FOR SAFE DC.
[2023-10-29 14:19] LABS: Platelet Count 216 X10*3/uL (160-400); White Blood Count 6.1 X10*3/uL (4.8-10.8)
--- NOTE | 2023-10-29 15:18 | HO.ADDICTPRO ---
Subjective Subjective Date of Service: 10/29/23 Reason For Visit: Symptomatic Anemia Interim History: Patient seen in follow up Methadone dose currently 25mg QD Appears very comfortable and slightly drowsy. This sports writer inquired if patient was feeling sleepy, she denied this. Discussed decreasing dose a bit further, patient agreeable Review of Systems Acute medical concerns: Yes Medical Review of Systems: unchanged Mental Status Exam Mental Status Exam Patient Appearance: Well Grooomed and Appropriate Level of Consciousness: Awake and Drowsy Patient Behavior: Appropriate and Talkative Mood Description: Calm Diagnostics Vital Signs (24Hr): Vital Signs - 24 hr 10/28/23 15:48 10/28/23 16:04 10/28/23 18:24 Temperature 97.7 F 97.3 F 97.3 F Pulse Rate 83 78 80 Respiratory Rate 18 18 18 Blood Pressure 134/66 132/63 128/68 Pulse Oximetry Oxygen Delivery Method Oxygen Flow Rate 10/28/23 19:23 10/28/23 19:39 10/28/23 22:15 Temperature 98.2 F 98.4 F Pulse Rate 78 80 78 Respiratory Rate 16 16 20 Blood Pressure 139/78 131/62 Pulse Oximetry 98 Oxygen Delivery Method Nasal Cannula Oxygen Flow Rate 1 10/28/23 22:35 10/29/23 01:33 10/29/23 01:35 Temperature 97.8 F 97.1 F 97.1 F Pulse Rate 83 82 82 Respiratory Rate 20 16 16 Blood Pressure 169/87 H 147/86 H 147/86 H Pulse Oximetry Oxygen Delivery Method Nasal Cannula Oxygen Flow Rate 1 10/29/23 03:41 10/29/23 07:26 10/29/23 07:52 Temperature 97.1 F 98.2 F Pulse Rate 82 80 84 Respiratory Rate 16 22 H 16 Blood Pressure 147/86 H 139/80 Pulse Oximetry 99 95 Oxygen Delivery Method Nasal Cannula Nasal Cannula Oxygen Flow Rate 1 1 BMI result Body Mass Index 25.0 Labs 10/29/23 13:20 10/28/23 05:14 Labs: Laboratory Results - last 48 hr 10/28/23 10/28/23 10/28/23 05:14 08:00 13:21 WBC 6.2 RBC 2.35 L Hgb 7.7 L Hct 23.7 L MCV 100.9 H MCH 32.8 MCHC 32.5 RDW 14.3 Plt Count 255 MPV 10.5 Absolute Nucleated RBC 0.000 Nucleated RBC % (auto) 0.0 Sodium 132 L Potassium 4.2 Chloride 95 L Carbon Dioxide 28 Anion Gap 13 BUN 11 Creatinine 0.62 Estim Creat Clear Calc 74.9 Estimated GFR > 60 POC Glucose 77 Random Glucose 56 L* Calcium 8.1 L Iron 21 L TIBC 57 L % Saturation 37 Unsat Iron Binding 36 Blood Type AB Positive Antibody Screen NEGATIVE Crossmatch See Detail 10/29/23 13:20 WBC 6.1 RBC 3.53 L D Hgb 11.3 L D Hct 33.3 L D MCV 94.3 D MCH 32.0 MCHC 33.9 RDW 15.7 Plt Count 216 MPV 10.3 Absolute Nucleated RBC 0.020 H Nucleated RBC % (auto) 0.3 H Sodium Potassium Chloride Carbon Dioxide Anion Gap BUN Creatinine Estim Creat Clear Calc Estimated GFR POC Glucose Random Glucose Calcium Iron TIBC % Saturation Unsat Iron Binding Blood Type Antibody Screen Crossmatch Imaging Radiology Impressions: ITS Impressions Head CT 10/09/23 11:26 IMPRESSION: 1. No acute intracranial process seen. 2. Chronic bilateral maxillary and left middle ethmoid sinus inflammatory changes. Shoulder CT 10/11/23 14:39 IMPRESSION: 1. Absence of the distal clavicle as well as attenuation and fragmentation of the acromion is redemonstrated, similar when compared to the radiographs dated 08/18/2023. Focal erosion/cortical defect at the anteromedial aspect of the humeral head measuring up to 1.9 cm in ML dimension. It is unclear if this is present on the prior radiographs. 2. Large glenohumeral joint effusion with a lobulated extension along the anterosuperior aspect of the joint measuring up to 3.9 cm and likely corresponding to the patient's reported lump. This measures as simple fluid signal and is likely related to the joint space. Findings could indicate an infectious or inflammatory arthropathy in the appropriate clinical setting. 3. Moderate glenohumeral osteoarthritis. Superior subluxation of the humeral head indicating underlying rotator cuff tendon tears. Evaluation of the rotator cuff tendons severely limited on CT examination. 4. Patchy areas of scarring and nodularity within the right lung with evaluation significantly limited due to respiratory motion. Right middle lobe opacification with air bronchograms and peripheral cystic change. These findings appear new when compared to the CT thoracic spine dated 08/19/2023. Dedicated CT chest could help further evaluate. Shoulder X-Ray 10/12/23 10:15 IMPRESSION: 1. Redemonstration of absence of the distal clavicle. 2. Focal defect of the humeral head. 3. Increased soft tissue density surrounding the right humeral head consistent with shoulder effusion. Medications Medications Current Medications Acetaminophen (Acetaminophen 325 Mg Tablet) 975 mg PO QSHIFT [facility] Last Admin: 10/29/23 08:11 Dose: 975 mg Albuterol Sulfate (Albuterol Sulfate 90 Mcg 8 Gm Inhaler) 2 puff INHALE Q4H PRN PRN Reason: Shortness Of Breath Or Wheezing Apixaban (Apixaban 5 Mg Tablet) 5 mg PO BID [facility] Last Admin: 10/28/23 09:19 Dose: 5 mg Docusate Sodium (Docusate Sodium 100 Mg Capsule) 100 mg PO BID [facility] Last Admin: 10/29/23 08:12 Dose: 100 mg Fluticasone Propionate (Fluticasone Propionate 250 Mcg Blst.W.Dev) 1 puff INHALE RBID [facility] Last Admin: 10/29/23 07:51 Dose: 1 puff Heparin Sodium (Porcine) (Heparin Sodium,Porcine Flush 50 Units/5 Ml Syringe) 50 units IVFLUSH BID [facility] Last Admin: 10/29/23 08:11 Dose: 50 units Daptomycin 640 mg/ Sodium (Chloride) 62.8 mls @ 100 mls/hr IV Q24H [facility] Stop: 11/09/23 15:59 Last Infusion: 10/28/23 19:53 Dose: Infused Lidocaine (Lidocaine 4 % Patch Adh..Patch) 1 patch TRANSDERMA DAILY [facility]; Protocol Last Admin: 10/29/23 08:12 Dose: 1 patch Methadone HCl (Methadone Hcl 20 Mg/2 Ml Oral.Conc) 25 mg PO DAILY [facility] Last Admin: 10/29/23 08:11 Dose: 25 mg Montelukast Sodium (Montelukast Sodium 10 Mg Tablet) 10 mg PO DAILY [facility] Last Admin: 10/29/23 08:11 Dose: 10 mg Omeprazole (Omeprazole 40 Mg Capsule.Dr) 40 mg PO BID@0630,1630 [facility] Last Admin: 10/29/23 05:51 Dose: 40 mg Oxycodone HCl (Oxycodone Hcl Immed Release 5 Mg Tablet) 5 mg PO Q8H PRN PRN Reason: Pain, Severe (Pain Scale 7-10) Last Admin: 10/29/23 11:13 Dose: 5 mg Polyethylene Glycol (Polyethylene Glycol 3350 17 Gm Powd.Pack) 17 gm PO BID [facility] Last Admin: 10/29/23 08:10 Dose: 17 gm Sodium Chloride (0.9 % Sodium Chloride Flush 3 Ml Syringe) 3 ml IVFLUSH QSHIFT [facility] Last Admin: 10/29/23 08:12 Dose: 3 ml Vitamin D (Cholecalciferol (Vitamin D3) 25 Mcg Tablet) 25 mcg PO DAILY [facility] Last Admin: 10/29/23 08:12 Dose: 25 mcg Zolpidem Tartrate (Zolpidem Tartrate 5 Mg Tablet) 5 mg PO BEDTIME [facility] Last Admin: 10/28/23 21:52 Dose: 5 mg Allergies Allergies Allergy/AdvReac Type Severity Reaction Status Date / Time cephalexin [From Keflex] Allergy Severe HIVES Verified 08/15/23 19:19 clindamycin [Clindamycin] Allergy Severe HIVES Verified 08/15/23 19:19 doxycycline [Doxycycline] Allergy Severe HIVES Verified 08/15/23 19:19 erythromycin base Allergy Severe HIVES Verified 08/15/23 19:20 [Erythromycin Base] levofloxacin [From Levaquin] Allergy Severe THROAT Verified 08/15/23 19:19 TIGHTENS nitrofurantoin Allergy Severe HIVES Verified 08/15/23 19:19 [From Macrobid] Penicillins Allergy Severe HIVES Verified 08/15/23 19:19 aspirin Allergy Unknown Hives Verified 08/15/23 19:19 linezolid [From ZYVOX] Allergy Unknown UNKNOWN Verified 08/15/23 19:19 Sulfa (Sulfonamide Allergy Unknown HIVES Verified 08/15/23 19:19 Antibiotics) [SULFA (SULFONAMIDE ANTIBIOTICS)] sulfacetamide Allergy Unknown Hives Verified 08/15/23 19:19 Erythromycin Allergy Unknown Hives Uncoded 04/22/23 06:01 seafood/shellfish Allergy Unknown Facial Uncoded 04/22/23 06:01 Swelling Sulfacet-R Allergy Unknown Hives Uncoded 04/22/23 06:01 Assessment & Plan Assessment & Plan (1) Opioid use disorder: Status: Acute Code(s): F11.90 - Opioid use, unspecified, uncomplicated Assessment and Plan: decrease methadoen to 20mg QD discussed with attending provider and plan is to d/c methadone and continue pain medications --patient was using opiates at home to address untreated pain. will continue to follow. Total time managing care of this patient today ____ minutes.
[2023-10-29] MEDS: Zolpidem Tartrate 5 MG TABLET PO (20:16)
[2023-10-30] VITALS (7 sets, daily range): BP systolic 130–186; BP diastolic 70–82; PULSE 84–88; RESP 16–20; TEMP 36.2–36.6; O2SAT 93–98
[2023-10-30] MEDS: oxyCODONE HCl Immed Release 5 MG TABLET PO ×3 (03:18→22:29)
[2023-10-30] MEDS: Omeprazole 40 MG CAPSULE.DR PO ×2 (06:24→15:38)
[2023-10-30] MEDS: Fluticasone Propionate 250 MCG BLST.W.DEV 1 PUFF INHALE ×2 (07:45→20:46)
[2023-10-30] MEDS: Montelukast Sodium 10 MG TABLET PO (08:34)
[2023-10-30] MEDS: Acetaminophen 325 MG TABLET 975 MG PO ×4 (08:34→23:48)
[2023-10-30] MEDS: methADONE HCl 20 MG/2 ML ORAL.CONC PO (08:34)
[2023-10-30] MEDS: Cholecalciferol (Vitamin D3) 25 MCG TABLET PO (08:34)
[2023-10-30] MEDS: Lidocaine 4 % Patch ADH..PATCH 1 PATCH TRANSDERMA (08:35)
[2023-10-30] MEDS: Heparin Sodium,Porcine Flush 50 UNITS/5 ML SYRINGE IVFLUSH ×2 (08:35→20:12)
[2023-10-30] MEDS: 0.9 % Sodium Chloride Flush 3 ML SYRINGE IVFLUSH ×2 (08:35→15:43)
--- NOTE | 2023-10-30 10:22 | P.PNIM_ITS ---
Subjective Subjective Date of Service: 10/30/23 Interval History: no complaints Physical Exam 2 Vital Signs: Vital Signs: Last Vital Signs Temp 97.8 F 10/30/23 07:51 Pulse 86 10/30/23 07:51 Resp 20 10/30/23 07:51 BP 130/71 10/30/23 07:51 Pulse Ox 97 10/30/23 07:51 O2 Del Method Nasal Cannula 10/30/23 07:51 O2 Flow Rate 2 10/30/23 07:51 BMI result Body Mass Index 25.0 Const: Other: Const: General: cooperative, healthy appearing and no acute distress Resp: Effort & Inspection: normal respiratory effort and able to speak in complete sentences Cardio: Rate: regular rate Peripheral pulses: Peripheral pulses 2+ throughout GI: Palpation (GI): Soft to palpationSkin: chronic skin findings Extrem: Other: Right shoulder dressing is c/d/i. Able to flex and extend digits. Sensation intact. Objective Data Active Medications Acetaminophen (Acetaminophen 325 Mg Tablet) 975 mg PO QSHIFT [facility] Last Admin: 10/30/23 08:34 Dose: 975 mg Documented By: NANCIE Albuterol Sulfate (Albuterol Sulfate 90 Mcg 8 Gm Inhaler) 2 puff INHALE Q4H PRN PRN Reason: Shortness Of Breath Or Wheezing Apixaban (Apixaban 5 Mg Tablet) 5 mg PO BID [facility] Last Admin: 10/28/23 09:19 Dose: 5 mg Documented By: HENRIK Docusate Sodium (Docusate Sodium 100 Mg Capsule) 100 mg PO BID [facility] Last Admin: 10/30/23 08:30 Dose: Not Given Documented By: NANCIE Non-Admin Reason: Patient Refused Fluticasone Propionate (Fluticasone Propionate 250 Mcg Blst.W.Dev) 1 puff INHALE RBID [facility] Last Admin: 10/30/23 07:45 Dose: 1 puff Documented By: ANGELI Heparin Sodium (Porcine) (Heparin Sodium,Porcine Flush 50 Units/5 Ml Syringe) 50 units IVFLUSH BID [facility] Last Admin: 10/30/23 08:35 Dose: 50 units Documented By: NANCIE Daptomycin 640 mg/ Sodium (Chloride) 62.8 mls @ 100 mls/hr IV Q24H [facility] Stop: 11/09/23 15:59 Last Infusion: 10/29/23 17:53 Dose: Infused Documented By: NANCIE Lidocaine (Lidocaine 4 % Patch Adh..Patch) 1 patch TRANSDERMA DAILY [facility]; Protocol Last Admin: 10/30/23 08:35 Dose: 1 patch Documented By: NANCIE Methadone HCl (Methadone Hcl 20 Mg/2 Ml Oral.Conc) 20 mg PO DAILY [facility] Last Admin: 10/30/23 08:34 Dose: 20 mg Documented By: NANCIE Montelukast Sodium (Montelukast Sodium 10 Mg Tablet) 10 mg PO DAILY [facility] Last Admin: 10/30/23 08:34 Dose: 10 mg Documented By: NANCIE Omeprazole (Omeprazole 40 Mg Capsule.Dr) 40 mg PO BID@0630,1630 [facility] Last Admin: 10/30/23 06:24 Dose: 40 mg Documented By: ANAMIKA Oxycodone HCl (Oxycodone Hcl Immed Release 5 Mg Tablet) 5 mg PO Q8H PRN PRN Reason: Pain, Severe (Pain Scale 7-10) Last Admin: 10/30/23 03:18 Dose: 5 mg Documented By: ANAMIKA Polyethylene Glycol (Polyethylene Glycol 3350 17 Gm Powd.Pack) 17 gm PO BID [facility] Last Admin: 10/30/23 08:30 Dose: Not Given Documented By: NANCIE Non-Admin Reason: Patient Refused Sodium Chloride (0.9 % Sodium Chloride Flush 3 Ml Syringe) 3 ml IVFLUSH QSHIFT [facility] Last Admin: 10/30/23 08:35 Dose: 3 ml Documented By: NANCIE Vitamin D (Cholecalciferol (Vitamin D3) 25 Mcg Tablet) 25 mcg PO DAILY [facility] Last Admin: 10/30/23 08:34 Dose: 25 mcg Documented By: NANCIE Zolpidem Tartrate (Zolpidem Tartrate 5 Mg Tablet) 5 mg PO BEDTIME [facility] Last Admin: 10/29/23 20:16 Dose: 5 mg Documented By: ANAMIKA Labs 10/29/23 13:20 10/28/23 05:14 Labs: Laboratory Results - last 24 hr 10/29/23 13:20 MCV 94.3 D MCH 32.0 MCHC 33.9 RDW 15.7 Plt Count 216 MPV 10.3 Absolute Nucleated RBC 0.020 H Nucleated RBC % (auto) 0.3 H Assessment and Plan (1) Osteomyelitis: Status: Acute (2) Bacteremia due to Gram-positive bacteria: Status: Acute Plan 73F PMH COPD on home O2 (2L/min NC), hepatitis C, IV drug use, MRSA abscesses,?C.diff infection, E. coli colitis, osteomyelitis (humerus, clavicle, and scapula) with MSSA bacteremia (June 2023), coccyx chronic ulcer, occlusive bilat DVT, anemia and PUD. Acute on chronic blood loss anemia 2/2 GI blood loss. Patient has PUD on EGD from Aug 2023 pending repeat CBC total 4 units prbc this admission seen by GI dr Martinez, h/h stable, PPI Hold Eliquis monitor H&H MRSA bacteremia 2/2 Osteomyelitis (humerus, clavicle and scapula) TTE 55-60%, repeat blood cultures 10/19/23 - negative Right shoulder ct scan:Large glenohumeral joint effusion with a lobulated extension. shoulder abcess drainged by Ortho team 10/16/23 d/w ID - Daptomycin, to finish by 11/30/2023 to finish 6 weeks Abx. cpk weekly Acute kidney injury. resolved Chronic hypoxic failure 2/2 COPD Continue supplemental oxygen to keep oxygen saturation above 90%, nebs prn, Continue montelukast . Bilateral occlusive deep venous thrombosis. s/p ivc filter Eliquis History of hepatitic C viral load negative d/w hematology: thrombocytopenia also mutlifactroial -hepatitis c-possible liver dis /also has mrsa bacteremia History of IVDU. claims not using IV drugs.but utox positive for fentanyl/coacaine addiction consult-continue methadone. Chronic decubitus ulcer, coccyx,elbow right . Healing: added wound care recommendations: DVT PPx Eliquis reason for continued hospitalization: Pending safe discharge plan to a facility to finish IV antibiotics course. Quality Stroke Does the patient have a stroke diagnosis?: No VTE Prior VTE?: Yes VTE Risk Level:: Medical - moderate - high VTE Device Contraindication: Procedure Contraindicated VTE Drug Contraindication: Treatment Not Indicated
[2023-10-30] MEDS: Zolpidem Tartrate 5 MG TABLET PO (20:12)
[2023-10-31 03:14] VITALS: BP 139/71; PULSE 86; RESP 18; TEMP 36.4; O2SAT 98
[2023-10-31] MEDS: Omeprazole 40 MG CAPSULE.DR PO ×2 (06:30→15:45)
[2023-10-31] MEDS: oxyCODONE HCl Immed Release 5 MG TABLET PO ×3 (06:30→21:48)
[2023-10-31 06:47] VITALS: BP 128/72; PULSE 85; RESP 17; TEMP 36.6; O2SAT 98
[2023-10-31] MEDS: Fluticasone Propionate 250 MCG BLST.W.DEV 1 PUFF INHALE ×2 (07:45→19:40)
[2023-10-31 07:46] VITALS: PULSE 85; RESP 17; O2SAT 98
[2023-10-31] MEDS: Montelukast Sodium 10 MG TABLET PO (08:39)
[2023-10-31] MEDS: Cholecalciferol (Vitamin D3) 25 MCG TABLET PO (08:39)
[2023-10-31] MEDS: Acetaminophen 325 MG TABLET 975 MG PO ×2 (08:39→15:45)
--- NOTE | 2023-10-31 08:39 | P.PNIM_ITS ---
Subjective Subjective Date of Service: 10/31/23 Interval History: no complaints Physical Exam 2 Vital Signs: Vital Signs: Last Vital Signs Temp 97.9 F 10/31/23 06:47 Pulse 85 10/31/23 07:46 Resp 17 10/31/23 07:46 BP 128/72 10/31/23 06:47 Pulse Ox 98 10/31/23 06:47 O2 Del Method Nasal Cannula 10/31/23 06:47 O2 Flow Rate 2 10/31/23 06:47 BMI result Body Mass Index 25.0 Const: Other: Const: General: cooperative, healthy appearing and no acute distress Resp: Effort & Inspection: normal respiratory effort and able to speak in complete sentences Cardio: Rate: regular rate Peripheral pulses: Peripheral pulses 2+ throughout GI: Palpation (GI): Soft to palpationSkin: chronic skin findings Extrem: Other: Right shoulder dressing is c/d/i. Able to flex and extend digits. Sensation intact. Objective Data Active Medications Acetaminophen (Acetaminophen 325 Mg Tablet) 975 mg PO QSHIFT [facility] Last Admin: 10/30/23 23:48 Dose: 975 mg Documented By: ANAMIKA Albuterol Sulfate (Albuterol Sulfate 90 Mcg 8 Gm Inhaler) 2 puff INHALE Q4H PRN PRN Reason: Shortness Of Breath Or Wheezing Apixaban (Apixaban 5 Mg Tablet) 5 mg PO BID [facility] Last Admin: 10/28/23 09:19 Dose: 5 mg Documented By: HENRIK Docusate Sodium (Docusate Sodium 100 Mg Capsule) 100 mg PO BID [facility] Last Admin: 10/30/23 20:18 Dose: Not Given Documented By: ANAMIKA Non-Admin Reason: Patient Refused Fluticasone Propionate (Fluticasone Propionate 250 Mcg Blst.W.Dev) 1 puff INHALE RBID [facility] Last Admin: 10/31/23 07:45 Dose: 1 puff Documented By: MARCIE Heparin Sodium (Porcine) (Heparin Sodium,Porcine Flush 50 Units/5 Ml Syringe) 50 units IVFLUSH BID [facility] Last Admin: 10/30/23 20:12 Dose: 50 units Documented By: ANAMIKA Daptomycin 640 mg/ Sodium (Chloride) 62.8 mls @ 100 mls/hr IV Q24H [facility] Stop: 11/09/23 15:59 Last Infusion: 10/30/23 16:15 Dose: Infused Documented By: NANCIE Lidocaine (Lidocaine 4 % Patch Adh..Patch) 1 patch TRANSDERMA DAILY [facility]; Protocol Last Admin: 10/30/23 08:35 Dose: 1 patch Documented By: NANCIE Methadone HCl (Methadone Hcl 20 Mg/2 Ml Oral.Conc) 15 mg PO DAILY [facility] Montelukast Sodium (Montelukast Sodium 10 Mg Tablet) 10 mg PO DAILY [facility] Last Admin: 10/30/23 08:34 Dose: 10 mg Documented By: NANCIE Omeprazole (Omeprazole 40 Mg Capsule.Dr) 40 mg PO BID@0630,1630 [facility] Last Admin: 10/31/23 06:30 Dose: 40 mg Documented By: ANAMIKA Oxycodone HCl (Oxycodone Hcl Immed Release 5 Mg Tablet) 5 mg PO Q8H PRN PRN Reason: Pain, Severe (Pain Scale 7-10) Last Admin: 10/31/23 06:30 Dose: 5 mg Documented By: ANAMIKA Polyethylene Glycol (Polyethylene Glycol 3350 17 Gm Powd.Pack) 17 gm PO BID [facility] Last Admin: 10/30/23 20:19 Dose: Not Given Documented By: ANAMIKA Non-Admin Reason: Patient Refused Sodium Chloride (0.9 % Sodium Chloride Flush 3 Ml Syringe) 3 ml IVFLUSH QSHIFT [facility] Last Admin: 10/31/23 00:20 Dose: Not Given Documented By: ANAMIKA Non-Admin Reason: pt has a midline flushed with heparin Vitamin D (Cholecalciferol (Vitamin D3) 25 Mcg Tablet) 25 mcg PO DAILY [facility] Last Admin: 10/30/23 08:34 Dose: 25 mcg Documented By: NANCIE Zolpidem Tartrate (Zolpidem Tartrate 5 Mg Tablet) 5 mg PO BEDTIME [facility] Last Admin: 10/30/23 20:12 Dose: 5 mg Documented By: ANAMIKA Labs 10/29/23 13:20 10/28/23 05:14 Assessment and Plan (1) Osteomyelitis: Status: Acute (2) Bacteremia due to Gram-positive bacteria: Status: Acute Plan 73F PMH COPD on home O2 (2L/min NC), hepatitis C, IV drug use, MRSA abscesses,?C.diff infection, E. coli colitis, osteomyelitis (humerus, clavicle, and scapula) with MSSA bacteremia (June 2023), coccyx chronic ulcer, occlusive bilat DVT, anemia and PUD. Acute on chronic blood loss anemia 2/2 GI blood loss. Patient has PUD on EGD from Aug 2023 pending repeat CBC total 4 units prbc this admission seen by GI dr Martinez, h/h stable, PPI Hold Eliquis monitor H&H MRSA bacteremia 2/2 Osteomyelitis (humerus, clavicle and scapula) TTE 55-60%, repeat blood cultures 10/19/23 - negative Right shoulder ct scan:Large glenohumeral joint effusion with a lobulated extension. shoulder abcess drainged by Ortho team 10/16/23 d/w ID - Daptomycin, to finish by 11/30/2023 to finish 6 weeks Abx. cpk weekly Acute kidney injury. resolved Chronic hypoxic failure 2/2 COPD Continue supplemental oxygen to keep oxygen saturation above 90%, nebs prn, Continue montelukast . Bilateral occlusive deep venous thrombosis. s/p ivc filter Eliquis History of hepatitic C viral load negative d/w hematology: thrombocytopenia also mutlifactroial -hepatitis c-possible liver dis /also has mrsa bacteremia History of IVDU. claims not using IV drugs.but utox positive for fentanyl/coacaine addiction consult-continue methadone. Chronic decubitus ulcer, coccyx,elbow right . Healing: added wound care recommendations: DVT PPx Eliquis reason for continued hospitalization: Pending safe discharge plan to a facility to finish IV antibiotics course. Quality Stroke Does the patient have a stroke diagnosis?: No VTE Prior VTE?: Yes VTE Risk Level:: Medical - moderate - high VTE Device Contraindication: Procedure Contraindicated VTE Drug Contraindication: Treatment Not Indicated
[2023-10-31] MEDS: Heparin Sodium,Porcine Flush 50 UNITS/5 ML SYRINGE IVFLUSH ×2 (08:40→21:49)
[2023-10-31] MEDS: methADONE HCl 20 MG/2 ML ORAL.CONC 15 MG PO (08:40)
[2023-10-31] MEDS: Lidocaine 4 % Patch ADH..PATCH 1 PATCH TRANSDERMA (08:40)
--- NOTE | 2023-10-31 10:39 | MHC.CLN ---
F/U DIET=REGULAR-APPROPRIATE. RECEIVING ENSURE MAX BID (300 KCALS, 60 G PROTEIN) TO PROMOTE WOUND HEALING. PO INTAKE VARIABLE, 50-100%. APPEARS TO BE USUAL INTAKE. SKIN WITH UNSTAGEABLE AREA TO COCCYX AND DTI TO BILATERAL HEELS. CONTINUE TO MONITOR PO INTAKE AND SKIN INTEGRITY. RD TO FOLLOW WEEKLY.
--- NOTE | 2023-10-31 12:14 | MHC.CM.PN ---
EMR reviewed. Patient continues to wean off methadone. [facility] is following and would like to accept the patient for LTC once methadone is dc'd later this week. CM will continue to follow.
[2023-10-31 15:09] VITALS: BP 125/58; PULSE 84; RESP 18; TEMP 36.3; O2SAT 98
[2023-10-31] MEDS: 0.9 % Sodium Chloride Flush 3 ML SYRINGE IVFLUSH ×2 (15:45→21:49)
--- NOTE | 2023-10-31 17:13 | HO.ADDICTPRO ---
Subjective Subjective Date of Service: 10/31/23 Reason For Visit: Symptomatic Anemia Interim History: Patient seen in follow up Methadone dose has been tapering. Today she received methadone 15mg, When seen by t/w and security system analyst, patient in good spirits, smiling and talkative. Does report pain in her shoulder and back, but this is not new. She denies any withdrawal sx, or concerns with tapering methadone dose. Review of Systems Acute medical concerns: Yes Medical Review of Systems: unchanged Mental Status Exam Mental Status Exam Patient Appearance: Appropriate Level of Consciousness: Awake and Alert Patient Behavior: Appropriate and Talkative Mood Description: Happy Diagnostics Vital Signs (24Hr): Vital Signs - 24 hr 10/30/23 19:34 10/30/23 20:46 10/31/23 03:14 Temperature 97.2 F 97.5 F Pulse Rate 84 84 86 Respiratory Rate 18 18 18 Blood Pressure 147/70 H 139/71 Pulse Oximetry 98 98 Oxygen Delivery Method Nasal Cannula Room Air Oxygen Flow Rate 2 10/31/23 06:47 10/31/23 07:46 10/31/23 15:09 Temperature 97.9 F 97.3 F Pulse Rate 85 85 84 Respiratory Rate 17 17 18 Blood Pressure 128/72 125/58 L Pulse Oximetry 98 98 Oxygen Delivery Method Nasal Cannula Nasal Cannula Oxygen Flow Rate 2 2.0 BMI result Body Mass Index 25.0 Labs 10/29/23 13:20 10/28/23 05:14 Imaging Radiology Impressions: ITS Impressions Head CT 10/09/23 11:26 IMPRESSION: 1. No acute intracranial process seen. 2. Chronic bilateral maxillary and left middle ethmoid sinus inflammatory changes. Shoulder CT 10/11/23 14:39 IMPRESSION: 1. Absence of the distal clavicle as well as attenuation and fragmentation of the acromion is redemonstrated, similar when compared to the radiographs dated 08/18/2023. Focal erosion/cortical defect at the anteromedial aspect of the humeral head measuring up to 1.9 cm in ML dimension. It is unclear if this is present on the prior radiographs. 2. Large glenohumeral joint effusion with a lobulated extension along the anterosuperior aspect of the joint measuring up to 3.9 cm and likely corresponding to the patient's reported lump. This measures as simple fluid signal and is likely related to the joint space. Findings could indicate an infectious or inflammatory arthropathy in the appropriate clinical setting. 3. Moderate glenohumeral osteoarthritis. Superior subluxation of the humeral head indicating underlying rotator cuff tendon tears. Evaluation of the rotator cuff tendons severely limited on CT examination. 4. Patchy areas of scarring and nodularity within the right lung with evaluation significantly limited due to respiratory motion. Right middle lobe opacification with air bronchograms and peripheral cystic change. These findings appear new when compared to the CT thoracic spine dated 08/19/2023. Dedicated CT chest could help further evaluate. Shoulder X-Ray 10/12/23 10:15 IMPRESSION: 1. Redemonstration of absence of the distal clavicle. 2. Focal defect of the humeral head. 3. Increased soft tissue density surrounding the right humeral head consistent with shoulder effusion. Medications Medications Current Medications Acetaminophen (Acetaminophen 325 Mg Tablet) 975 mg PO QSHIFT [facility] Last Admin: 10/31/23 15:45 Dose: 975 mg Albuterol Sulfate (Albuterol Sulfate 90 Mcg 8 Gm Inhaler) 2 puff INHALE Q4H PRN PRN Reason: Shortness Of Breath Or Wheezing Apixaban (Apixaban 5 Mg Tablet) 5 mg PO BID [facility] Last Admin: 10/28/23 09:19 Dose: 5 mg Docusate Sodium (Docusate Sodium 100 Mg Capsule) 100 mg PO BID [facility] Last Admin: 10/31/23 08:42 Dose: Not Given Fluticasone Propionate (Fluticasone Propionate 250 Mcg Blst.W.Dev) 1 puff INHALE RBID [facility] Last Admin: 10/31/23 07:45 Dose: 1 puff Heparin Sodium (Porcine) (Heparin Sodium,Porcine Flush 50 Units/5 Ml Syringe) 50 units IVFLUSH BID [facility] Last Admin: 10/31/23 08:40 Dose: 50 units Daptomycin 640 mg/ Sodium (Chloride) 62.8 mls @ 100 mls/hr IV Q24H [facility] Stop: 11/09/23 16:38 Last Infusion: 10/31/23 16:24 Dose: Infused Lidocaine (Lidocaine 4 % Patch Adh..Patch) 1 patch TRANSDERMA DAILY [facility]; Protocol Last Admin: 10/31/23 08:40 Dose: 1 patch Methadone HCl (Methadone Hcl 20 Mg/2 Ml Oral.Conc) 10 mg PO DAILY [facility] Montelukast Sodium (Montelukast Sodium 10 Mg Tablet) 10 mg PO DAILY [facility] Last Admin: 10/31/23 08:39 Dose: 10 mg Omeprazole (Omeprazole 40 Mg Capsule.Dr) 40 mg PO BID@0630,1630 [facility] Last Admin: 10/31/23 15:45 Dose: 40 mg Oxycodone HCl (Oxycodone Hcl Immed Release 5 Mg Tablet) 5 mg PO Q8H PRN PRN Reason: Pain, Severe (Pain Scale 7-10) Last Admin: 10/31/23 14:17 Dose: 5 mg Polyethylene Glycol (Polyethylene Glycol 3350 17 Gm Powd.Pack) 17 gm PO BID [facility] Last Admin: 10/31/23 08:42 Dose: Not Given Sodium Chloride (0.9 % Sodium Chloride Flush 3 Ml Syringe) 3 ml IVFLUSH QSHIFT [facility] Last Admin: 10/31/23 15:45 Dose: 3 ml Vitamin D (Cholecalciferol (Vitamin D3) 25 Mcg Tablet) 25 mcg PO DAILY [facility] Last Admin: 10/31/23 08:39 Dose: 25 mcg Zolpidem Tartrate (Zolpidem Tartrate 5 Mg Tablet) 5 mg PO BEDTIME [facility] Last Admin: 10/30/23 20:12 Dose: 5 mg Allergies Allergies Allergy/AdvReac Type Severity Reaction Status Date / Time cephalexin [From Keflex] Allergy Severe HIVES Verified 08/15/23 19:19 clindamycin [Clindamycin] Allergy Severe HIVES Verified 08/15/23 19:19 doxycycline [Doxycycline] Allergy Severe HIVES Verified 08/15/23 19:19 erythromycin base Allergy Severe HIVES Verified 08/15/23 19:20 [Erythromycin Base] levofloxacin [From Levaquin] Allergy Severe THROAT Verified 08/15/23 19:19 TIGHTENS nitrofurantoin Allergy Severe HIVES Verified 08/15/23 19:19 [From Macrobid] Penicillins Allergy Severe HIVES Verified 08/15/23 19:19 aspirin Allergy Unknown Hives Verified 08/15/23 19:19 linezolid [From ZYVOX] Allergy Unknown UNKNOWN Verified 08/15/23 19:19 Sulfa (Sulfonamide Allergy Unknown HIVES Verified 08/15/23 19:19 Antibiotics) [SULFA (SULFONAMIDE ANTIBIOTICS)] sulfacetamide Allergy Unknown Hives Verified 08/15/23 19:19 Erythromycin Allergy Unknown Hives Uncoded 04/22/23 06:01 seafood/shellfish Allergy Unknown Facial Uncoded 04/22/23 06:01 Swelling Sulfacet-R Allergy Unknown Hives Uncoded 04/22/23 06:01 Assessment & Plan Assessment & Plan (1) Opioid use disorder: Status: Acute Code(s): F11.90 - Opioid use, unspecified, uncomplicated Assessment and Plan: continue to taper dose as tolerated continue PRN oxycodone tomorrow methadone dose 10mg Total time managing care of this patient today __35__ minutes.
[2023-10-31 19:37] VITALS: BP 126/60; PULSE 80; RESP 18; TEMP 36.2; O2SAT 98
[2023-10-31 19:41] VITALS: PULSE 80; RESP 18; O2SAT 98
[2023-10-31] MEDS: Zolpidem Tartrate 5 MG TABLET PO (21:49)
[2023-11-01] MEDS: Acetaminophen 325 MG TABLET 975 MG PO ×3 (00:28→16:03)
[2023-11-01 03:28] VITALS: BP 135/71; PULSE 82; RESP 16; TEMP 36.3; O2SAT 93
[2023-11-01] MEDS: Omeprazole 40 MG CAPSULE.DR PO ×2 (05:22→16:03)
[2023-11-01] MEDS: oxyCODONE HCl Immed Release 5 MG TABLET PO ×2 (05:22→13:54)
[2023-11-01] MEDS: Fluticasone Propionate 250 MCG BLST.W.DEV 1 PUFF INHALE ×2 (07:33→19:07)
[2023-11-01 07:35] VITALS: PULSE 80; RESP 16; O2SAT 98
[2023-11-01 07:39] VITALS: BP 133/68; PULSE 80; RESP 16; TEMP 36.2; O2SAT 97
--- NOTE | 2023-11-01 08:53 | P.PNIM_ITS ---
Subjective Subjective Date of Service: 11/01/23 Interval History: no complaints Physical Exam 2 Vital Signs: Vital Signs: Last Vital Signs Temp 97.2 F 11/01/23 07:39 Pulse 80 11/01/23 07:39 Resp 16 11/01/23 07:39 BP 133/68 11/01/23 07:39 Pulse Ox 97 11/01/23 07:39 O2 Del Method Nasal Cannula 11/01/23 07:39 O2 Flow Rate 2 11/01/23 07:39 BMI result Body Mass Index 25.0 Const: Other: Const: General: cooperative, healthy appearing and no acute distress Resp: Effort & Inspection: normal respiratory effort and able to speak in complete sentences Cardio: Rate: regular rate Peripheral pulses: Peripheral pulses 2+ throughout GI: Palpation (GI): Soft to palpationSkin: chronic skin findings Extrem: Other: Right shoulder dressing is c/d/i. Able to flex and extend digits. Sensation intact. Objective Data Active Medications Acetaminophen (Acetaminophen 325 Mg Tablet) 975 mg PO QSHIFT [facility] Last Admin: 11/01/23 00:28 Dose: 975 mg Documented By: RITIKA Albuterol Sulfate (Albuterol Sulfate 90 Mcg 8 Gm Inhaler) 2 puff INHALE Q4H PRN PRN Reason: Shortness Of Breath Or Wheezing Apixaban (Apixaban 5 Mg Tablet) 5 mg PO BID [facility] Last Admin: 10/28/23 09:19 Dose: 5 mg Documented By: HENRIK Docusate Sodium (Docusate Sodium 100 Mg Capsule) 100 mg PO BID [facility] Last Admin: 10/31/23 21:49 Dose: Not Given Documented By: JERRY Non-Admin Reason: Patient Refused Fluticasone Propionate (Fluticasone Propionate 250 Mcg Blst.W.Dev) 1 puff INHALE RBID [facility] Last Admin: 11/01/23 07:33 Dose: 1 puff Documented By: ARMANI Heparin Sodium (Porcine) (Heparin Sodium,Porcine Flush 50 Units/5 Ml Syringe) 50 units IVFLUSH BID [facility] Last Admin: 10/31/23 21:49 Dose: 50 units Documented By: JERRY Daptomycin 640 mg/ Sodium (Chloride) 62.8 mls @ 100 mls/hr IV Q24H [facility] Stop: 02/09/24 16:38 Last Infusion: 10/31/23 16:24 Dose: Infused Documented By: BAUTISTA Lidocaine (Lidocaine 4 % Patch Adh..Patch) 1 patch TRANSDERMA DAILY [facility]; Protocol Last Admin: 10/31/23 08:40 Dose: 1 patch Documented By: BAUTISTA Methadone HCl (Methadone Hcl 20 Mg/2 Ml Oral.Conc) 10 mg PO DAILY [facility] Montelukast Sodium (Montelukast Sodium 10 Mg Tablet) 10 mg PO DAILY [facility] Last Admin: 10/31/23 08:39 Dose: 10 mg Documented By: BAUTISTA Omeprazole (Omeprazole 40 Mg Capsule.) 40 mg PO BID@0630,1630 [facility] Last Admin: 11/01/23 05:22 Dose: 40 mg Documented By: RITIKA Polyethylene Glycol (Polyethylene Glycol 3350 17 Gm Powd.Pack) 17 gm PO BID [facility] Last Admin: 10/31/23 21:49 Dose: Not Given Documented By: JERRY Non-Admin Reason: Patient Refused Sodium Chloride (0.9 % Sodium Chloride Flush 3 Ml Syringe) 3 ml IVFLUSH QSHIFT [facility] Last Admin: 10/31/23 21:49 Dose: 3 ml Documented By: JERRY Vitamin D (Cholecalciferol (Vitamin D3) 25 Mcg Tablet) 25 mcg PO DAILY [facility] Last Admin: 10/31/23 08:39 Dose: 25 mcg Documented By: ABUTISTA Zolpidem Tartrate (Zolpidem Tartrate 5 Mg Tablet) 5 mg PO BEDTIME [facility] Last Admin: 10/31/23 21:49 Dose: 5 mg Documented By: JERRY Labs 10/29/23 13:20 10/28/23 05:14 Assessment and Plan (1) Osteomyelitis: Status: Acute (2) Bacteremia due to Gram-positive bacteria: Status: Acute Plan 73F PMH COPD on home O2 (2L/min [place]), hepatitis C, IV drug use, MRSA abscesses,?C.diff infection, E. coli colitis, osteomyelitis (humerus, clavicle, and scapula) with MSSA bacteremia (June 2023), coccyx chronic ulcer, occlusive bilat DVT, anemia and PUD. Acute on chronic blood loss anemia 2/2 GI blood loss. Patient has PUD on EGD from Aug 2023 pending repeat CBC total 4 units prbc this admission seen by ULYSSES Martinez, h/h stable, PPI Hold Eliquis monitor H&H MRSA bacteremia 2/2 Osteomyelitis (humerus, clavicle and scapula) TTE 55-60%, repeat blood cultures 10/19/23 - negative Right shoulder ct scan:Large glenohumeral joint effusion with a lobulated extension. shoulder abcess drainged by Ortho team 10/16/23 d/w ID - Daptomycin, to finish by 11/30/2023 to finish 6 weeks Abx. cpk weekly Acute kidney injury. resolved Chronic hypoxic failure 2/2 COPD Continue supplemental oxygen to keep oxygen saturation above 90%, nebs prn, Continue montelukast . Bilateral occlusive deep venous thrombosis. s/p ivc filter Eliquis History of hepatitic C viral load negative d/w hematology: thrombocytopenia also mutlifactroial -hepatitis c-possible liver dis /also has mrsa bacteremia History of IVDU. claims not using IV drugs.but utox positive for fentanyl/coacaine addiction consult-continue methadone. Chronic decubitus ulcer, coccyx,elbow right . Healing: added wound care recommendations: DVT PPx Eliquis reason for continued hospitalization: Pending safe discharge plan to a facility to finish IV antibiotics course. Quality Stroke Does the patient have a stroke diagnosis?: No VTE Prior VTE?: Yes VTE Risk Level:: Medical - moderate - high VTE Device Contraindication: Procedure Contraindicated VTE Drug Contraindication: Treatment Not Indicated
[2023-11-01] MEDS: 0.9 % Sodium Chloride Flush 3 ML SYRINGE IVFLUSH ×2 (09:02→16:05)
[2023-11-01] MEDS: Docusate Sodium 100 MG CAPSULE PO (09:03)
[2023-11-01] MEDS: Cholecalciferol (Vitamin D3) 25 MCG TABLET PO (09:03)
[2023-11-01] MEDS: methADONE HCl 20 MG/2 ML ORAL.CONC 10 MG PO (09:03)
[2023-11-01] MEDS: Heparin Sodium,Porcine Flush 50 UNITS/5 ML SYRINGE IVFLUSH (09:03)
[2023-11-01] MEDS: Lidocaine 4 % Patch ADH..PATCH 1 PATCH TRANSDERMA (09:03)
[2023-11-01] MEDS: Montelukast Sodium 10 MG TABLET PO (09:03)
--- NOTE | 2023-11-01 14:02 | MHC.CM.PN ---
Addendum entered by Savannah Ellis 11/01/23 15:23: CM SPOKE TO [facility] WHO REPORTS THEY WOULD LIKE TO HAVE PT STAY AT LEAST ONE DAY PAST THE END OF HER METHADONE WEAN THEY WANT TO MAKE SURE SHE DOES NOT GO INTO WITHDRAWAL, THEY WILL FOLLOW UP AGAIN TOMORROW Original Note: PT AWAITING SNF PLACEMENT [facility] IS FOLLOWING AND INDICATED THEY COULD OFFER ONCE PT IS OFF METHADONE CM INFORMED THEM SHE COMPLETED HER METHADONE WEAN TODAY HOWEVER THEY HAVE NOT RESPONDED TO MESSAGES, CALLS OR TEXTS SINCE. CM WILL CONTINUE TO REACH OUT UNTIL A RESPONSE IS RECEIVED
[2023-11-01 15:24] VITALS: BP 128/68; PULSE 87; RESP 17; TEMP 36.3; O2SAT 98
--- NOTE | 2023-11-01 17:05 | P.PNADD_ITS ---
Subjective Subjective Date of Service: 11/01/23 Reason For Visit: Symptomatic Anemia Interim History: Patient seen in follow up Methadone 10mg today Patient very bright and smiling Happy to have had someone come and pray over her. Denies any withdrawl sx or worsening discomfort since reducing dose Aware today was her last dose. Review of Systems Acute medical concerns: Yes Medical Review of Systems: unchanged Mental Status Exam Mental Status Exam Patient Appearance: Appropriate Level of Consciousness: Awake and Alert Patient Behavior: Appropriate and Talkative Mood Description: Happy Diagnostics Vital Signs (24Hr): Vital Signs - 24 hr 10/31/23 19:37 10/31/23 19:41 11/01/23 03:28 Temperature 97.2 F 97.4 F Pulse Rate 80 80 82 Respiratory Rate 18 18 16 Blood Pressure 126/60 135/71 Pulse Oximetry 98 93 Oxygen Delivery Method Nasal Cannula Nasal Cannula Oxygen Flow Rate 2.0 2 11/01/23 07:35 11/01/23 07:39 11/01/23 15:24 Temperature 97.2 F 97.4 F Pulse Rate 80 80 87 Respiratory Rate 16 16 17 Blood Pressure 133/68 128/68 Pulse Oximetry 97 98 Oxygen Delivery Method Nasal Cannula Nasal Cannula Oxygen Flow Rate 2 2 BMI result Body Mass Index 25.0 Labs 10/29/23 13:20 10/28/23 05:14 Imaging Radiology Impressions: ITS Impressions Head CT 10/09/23 11:26 IMPRESSION: 1. No acute intracranial process seen. 2. Chronic bilateral maxillary and left middle ethmoid sinus inflammatory changes. Shoulder CT 10/11/23 14:39 IMPRESSION: 1. Absence of the distal clavicle as well as attenuation and fragmentation of the acromion is redemonstrated, similar when compared to the radiographs dated 08/18/2023. Focal erosion/cortical defect at the anteromedial aspect of the humeral head measuring up to 1.9 cm in ML dimension. It is unclear if this is present on the prior radiographs. 2. Large glenohumeral joint effusion with a lobulated extension along the anterosuperior aspect of the joint measuring up to 3.9 cm and likely corresponding to the patient's reported lump. This measures as simple fluid signal and is likely related to the joint space. Findings could indicate an infectious or inflammatory arthropathy in the appropriate clinical setting. 3. Moderate glenohumeral osteoarthritis. Superior subluxation of the humeral head indicating underlying rotator cuff tendon tears. Evaluation of the rotator cuff tendons severely limited on CT examination. 4. Patchy areas of scarring and nodularity within the right lung with evaluation significantly limited due to respiratory motion. Right middle lobe opacification with air bronchograms and peripheral cystic change. These findings appear new when compared to the CT thoracic spine dated 08/19/2023. Dedicated CT chest could help further evaluate. Shoulder X-Ray 10/12/23 10:15 IMPRESSION: 1. Redemonstration of absence of the distal clavicle. 2. Focal defect of the humeral head. 3. Increased soft tissue density surrounding the right humeral head consistent with shoulder effusion. Medications Medications Current Medications Acetaminophen (Acetaminophen 325 Mg Tablet) 975 mg PO QSHIFT [facility] Last Admin: 11/01/23 16:03 Dose: 975 mg Albuterol Sulfate (Albuterol Sulfate 90 Mcg 8 Gm Inhaler) 2 puff INHALE Q4H PRN PRN Reason: Shortness Of Breath Or Wheezing Apixaban (Apixaban 5 Mg Tablet) 5 mg PO BID [facility] Last Admin: 10/28/23 09:19 Dose: 5 mg Docusate Sodium (Docusate Sodium 100 Mg Capsule) 100 mg PO BID [facility] Last Admin: 11/01/23 09:03 Dose: 100 mg Fluticasone Propionate (Fluticasone Propionate 250 Mcg Blst.W.Dev) 1 puff INHALE RBID [facility] Last Admin: 11/01/23 07:33 Dose: 1 puff Heparin Sodium (Porcine) (Heparin Sodium,Porcine Flush 50 Units/5 Ml Syringe) 50 units IVFLUSH BID [facility] Last Admin: 11/01/23 09:03 Dose: 50 units Daptomycin 640 mg/ Sodium (Chloride) 62.8 mls @ 100 mls/hr IV Q24H [facility] Stop: 11/09/23 16:38 Last Admin: 11/01/23 16:09 Dose: 100 mls/hr Lidocaine (Lidocaine 4 % Patch Adh..Patch) 1 patch TRANSDERMA DAILY [facility]; Protocol Last Admin: 11/01/23 09:03 Dose: 1 patch Methadone HCl (Methadone Hcl 20 Mg/2 Ml Oral.Conc) 10 mg PO DAILY [facility] Last Admin: 11/01/23 09:03 Dose: 10 mg Montelukast Sodium (Montelukast Sodium 10 Mg Tablet) 10 mg PO DAILY [facility] Last Admin: 11/01/23 09:03 Dose: 10 mg Omeprazole (Omeprazole 40 Mg Capsule.Dr) 40 mg PO BID@0630,1630 [facility] Last Admin: 11/01/23 16:03 Dose: 40 mg Oxycodone HCl (Oxycodone Hcl Immed Release 5 Mg Tablet) 5 mg PO Q8H PRN PRN Reason: mpain Last Admin: 11/01/23 13:54 Dose: 5 mg Polyethylene Glycol (Polyethylene Glycol 3350 17 Gm Powd.Pack) 17 gm PO BID [facility] Last Admin: 11/01/23 09:04 Dose: Not Given Sodium Chloride (0.9 % Sodium Chloride Flush 3 Ml Syringe) 3 ml IVFLUSH QSHIFT [facility] Last Admin: 11/01/23 16:05 Dose: 3 ml Vitamin D (Cholecalciferol (Vitamin D3) 25 Mcg Tablet) 25 mcg PO DAILY [facility] Last Admin: 11/01/23 09:03 Dose: 25 mcg Zolpidem Tartrate (Zolpidem Tartrate 5 Mg Tablet) 5 mg PO BEDTIME [facility] Last Admin: 10/31/23 21:49 Dose: 5 mg Allergies Allergies Allergy/AdvReac Type Severity Reaction Status Date / Time cephalexin [From Keflex] Allergy Severe HIVES Verified 08/15/23 19:19 clindamycin [Clindamycin] Allergy Severe HIVES Verified 08/15/23 19:19 doxycycline [Doxycycline] Allergy Severe HIVES Verified 08/15/23 19:19 erythromycin base Allergy Severe HIVES Verified 08/15/23 19:20 [Erythromycin Base] levofloxacin [From Levaquin] Allergy Severe THROAT Verified 08/15/23 19:19 TIGHTENS nitrofurantoin Allergy Severe HIVES Verified 08/15/23 19:19 [From Macrobid] Penicillins Allergy Severe HIVES Verified 08/15/23 19:19 aspirin Allergy Unknown Hives Verified 08/15/23 19:19 linezolid [From ZYVOX] Allergy Unknown UNKNOWN Verified 08/15/23 19:19 Sulfa (Sulfonamide Allergy Unknown HIVES Verified 08/15/23 19:19 Antibiotics) [SULFA (SULFONAMIDE ANTIBIOTICS)] sulfacetamide Allergy Unknown Hives Verified 08/15/23 19:19 Erythromycin Allergy Unknown Hives Uncoded 04/22/23 06:01 seafood/shellfish Allergy Unknown Facial Uncoded 04/22/23 06:01 Swelling Sulfacet-R Allergy Unknown Hives Uncoded 04/22/23 06:01 Assessment & Plan Assessment & Plan (1) Opioid use disorder: Status: Acute Code(s): F11.90 - Opioid use, unspecified, uncomplicated Assessment and Plan: * d/c methadone * monitor for any withdrawal sx or increase in pain/discomfort Total time managing care of this patient today ____ minutes.
[2023-11-01 19:50] VITALS: BP 159/70; PULSE 78; RESP 18; TEMP 36.2; O2SAT 95
[2023-11-01] MEDS: Zolpidem Tartrate 5 MG TABLET PO (19:59)
[2023-11-02] MEDS: Acetaminophen 325 MG TABLET 975 MG PO ×3 (00:03→15:59)
[2023-11-02] MEDS: oxyCODONE HCl Immed Release 5 MG TABLET PO ×3 (00:03→17:56)
[2023-11-02] MEDS: 0.9 % Sodium Chloride Flush 3 ML SYRINGE IVFLUSH ×2 (00:04→20:02)
[2023-11-02 03:41] VITALS: BP 145/74; PULSE 84; RESP 16; TEMP 36.2; O2SAT 98
[2023-11-02] MEDS: Omeprazole 40 MG CAPSULE.DR PO ×2 (06:14→16:00)
[2023-11-02 07:54] VITALS: BP 137/67; PULSE 83; RESP 20; TEMP 36.2; O2SAT 97
[2023-11-02 08:06] VITALS: PULSE 80; RESP 16; O2SAT 99
[2023-11-02] MEDS: Fluticasone Propionate 250 MCG BLST.W.DEV 1 PUFF INHALE ×2 (08:06→20:05)
[2023-11-02] MEDS: Montelukast Sodium 10 MG TABLET PO (08:20)
[2023-11-02] MEDS: Heparin Sodium,Porcine Flush 50 UNITS/5 ML SYRINGE IVFLUSH (08:21)
[2023-11-02] MEDS: Cholecalciferol (Vitamin D3) 25 MCG TABLET PO (08:22)
[2023-11-02] MEDS: Lidocaine 4 % Patch ADH..PATCH 1 PATCH TRANSDERMA (08:23)
--- NOTE | 2023-11-02 08:29 | P.PNIM_ITS ---
Subjective Subjective Date of Service: 11/02/23 Interval History: no complaints Physical Exam 2 Vital Signs: Vital Signs: Last Vital Signs Temp 97.1 F 11/02/23 07:54 Pulse 80 11/02/23 08:06 Resp 16 11/02/23 08:06 BP 137/67 11/02/23 07:54 Pulse Ox 97 11/02/23 07:54 O2 Del Method Nasal Cannula 11/02/23 07:54 O2 Flow Rate 1 11/02/23 07:54 BMI result Body Mass Index 25.0 Const: Other: Const: General: cooperative, healthy appearing and no acute distress Resp: Effort & Inspection: normal respiratory effort and able to speak in complete sentences Cardio: Rate: regular rate Peripheral pulses: Peripheral pulses 2+ throughout GI: Palpation (GI): Soft to palpationSkin: chronic skin findings Extrem: Other: Right shoulder dressing is c/d/i. Able to flex and extend digits. Sensation intact. Objective Data Active Medications Acetaminophen (Acetaminophen 325 Mg Tablet) 975 mg PO QSHIFT [facility] Last Admin: 11/02/23 00:03 Dose: 975 mg Documented By: ROJELIO Albuterol Sulfate (Albuterol Sulfate 90 Mcg 8 Gm Inhaler) 2 puff INHALE Q4H PRN PRN Reason: Shortness Of Breath Or Wheezing Apixaban (Apixaban 5 Mg Tablet) 5 mg PO BID [facility] Last Admin: 10/28/23 09:19 Dose: 5 mg Documented By: HENRIK Docusate Sodium (Docusate Sodium 100 Mg Capsule) 100 mg PO BID [facility] Last Admin: 11/02/23 08:12 Dose: Not Given Documented By: BAUTISTA Non-Admin Reason: Patient Refused Fluticasone Propionate (Fluticasone Propionate 250 Mcg Blst.W.Dev) 1 puff INHALE RBID [facility] Last Admin: 11/02/23 08:06 Dose: 1 puff Documented By: MARIA LUISA Heparin Sodium (Porcine) (Heparin Sodium,Porcine Flush 50 Units/5 Ml Syringe) 50 units IVFLUSH BID [facility] Last Admin: 11/01/23 20:01 Dose: Not Given Documented By: NORI Non-Admin Reason: Patient Refused Daptomycin 640 mg/ Sodium (Chloride) 62.8 mls @ 100 mls/hr IV Q24H [facility] Stop: 11/09/23 16:38 Last Infusion: 11/01/23 17:10 Dose: Infused Documented By: MARYCRUZ Lidocaine (Lidocaine 4 % Patch Adh..Patch) 1 patch TRANSDERMA DAILY [facility]; Protocol Last Admin: 11/01/23 09:03 Dose: 1 patch Documented By: MATHEUS Montelukast Sodium (Montelukast Sodium 10 Mg Tablet) 10 mg PO DAILY [facility] Last Admin: 11/01/23 09:03 Dose: 10 mg Documented By: MATHEUS Omeprazole (Omeprazole 40 Mg Capsule.Dr) 40 mg PO BID@0630,1630 [facility] Last Admin: 11/02/23 06:14 Dose: 40 mg Documented By: NORI Oxycodone HCl (Oxycodone Hcl Immed Release 5 Mg Tablet) 5 mg PO Q8H PRN PRN Reason: mpain Last Admin: 11/02/23 06:14 Dose: 5 mg Documented By: NORI Polyethylene Glycol (Polyethylene Glycol 3350 17 Gm Powd.Pack) 17 gm PO BID [facility] Last Admin: 11/02/23 08:12 Dose: Not Given Documented By: BAUTISTA Non-Admin Reason: Patient Refused Sodium Chloride (0.9 % Sodium Chloride Flush 3 Ml Syringe) 3 ml IVFLUSH QSHIFT [facility] Last Admin: 11/02/23 00:04 Dose: 3 ml Documented By: ROJELIO Vitamin D (Cholecalciferol (Vitamin D3) 25 Mcg Tablet) 25 mcg PO DAILY [facility] Last Admin: 11/01/23 09:03 Dose: 25 mcg Documented By: MATHEUS Zolpidem Tartrate (Zolpidem Tartrate 5 Mg Tablet) 5 mg PO BEDTIME [facility] Last Admin: 11/01/23 19:59 Dose: 5 mg Documented By: NORI Labs 10/29/23 13:20 10/28/23 05:14 Assessment and Plan (1) Osteomyelitis: Status: Acute (2) Bacteremia due to Gram-positive bacteria: Status: Acute Plan 73F PMH COPD on home O2 (2L/min NC), hepatitis C, IV drug use, MRSA abscesses,?C.diff infection, E. coli colitis, osteomyelitis (humerus, clavicle, and scapula) with MSSA bacteremia (June 2023), coccyx chronic ulcer, occlusive bilat DVT, anemia and PUD. Acute on chronic blood loss anemia 2/2 GI blood loss. Patient has PUD on EGD from Aug 2023 pending repeat CBC total 4 units prbc this admission seen by GI dr Martinez, h/h stable, PPI Hold Eliquis monitor H&H MRSA bacteremia 2/2 Osteomyelitis (humerus, clavicle and scapula) TTE 55-60%, repeat blood cultures 10/19/23 - negative Right shoulder ct scan:Large glenohumeral joint effusion with a lobulated extension. shoulder abcess drainged by Ortho team 10/16/23 d/w ID - Daptomycin, to finish by 11/30/2023 to finish 6 weeks Abx. cpk weekly Acute kidney injury. resolved Chronic hypoxic failure 2/2 COPD Continue supplemental oxygen to keep oxygen saturation above 90%, nebs prn, Continue montelukast . Bilateral occlusive deep venous thrombosis. s/p ivc filter Eliquis History of hepatitic C viral load negative d/w hematology: thrombocytopenia also mutlifactroial -hepatitis c-possible liver dis /also has mrsa bacteremia History of IVDU. claims not using IV drugs.but utox positive for fentanyl/coacaine addiction consult-continue methadone. Chronic decubitus ulcer, coccyx,elbow right . Healing: added wound care recommendations: DVT PPx Eliquis reason for continued hospitalization: Pending safe discharge plan to a facility to finish IV antibiotics course. Quality Stroke Does the patient have a stroke diagnosis?: No VTE Prior VTE?: Yes VTE Risk Level:: Medical - moderate - high VTE Device Contraindication: Procedure Contraindicated VTE Drug Contraindication: Treatment Not Indicated
--- NOTE | 2023-11-02 14:18 | MHC.CM.PN ---
[facility] UPDATED. PATIENT DID NOT RECEIVE METHADONE THIS MORNING. CM REQUESTED AN APPROXIMATE DATE FOR PATIENT TO TRANSFER TO LTC AT FACILITY.
[2023-11-02 15:19] VITALS: BP 143/79; PULSE 87; RESP 18; TEMP 36.8; O2SAT 100
[2023-11-02 19:16] VITALS: BP 140/63; PULSE 92; RESP 18; TEMP 36.7; O2SAT 97
[2023-11-02] MEDS: polyethylene glycoL 3350 17 GM POWD.PACK PO (20:02)
[2023-11-02] MEDS: Zolpidem Tartrate 5 MG TABLET PO (20:02)
[2023-11-02] MEDS: Docusate Sodium 100 MG CAPSULE PO (20:02)
[2023-11-02 20:05] VITALS: PULSE 92; RESP 18; O2SAT 97
[2023-11-03 02:59] VITALS: BP 131/70; PULSE 82; RESP 16; TEMP 36.6; O2SAT 98
[2023-11-03] MEDS: oxyCODONE HCl Immed Release 5 MG TABLET PO ×3 (06:16→23:05)
[2023-11-03] MEDS: Omeprazole 40 MG CAPSULE.DR PO ×2 (06:16→16:09)
[2023-11-03 07:44] VITALS: BP 131/64; PULSE 91; RESP 18; TEMP 36.2; O2SAT 96
[2023-11-03] MEDS: Fluticasone Propionate 250 MCG BLST.W.DEV 1 PUFF INHALE ×2 (07:54→19:33)
[2023-11-03 07:56] VITALS: PULSE 89; RESP 18; O2SAT 94
[2023-11-03] MEDS: Montelukast Sodium 10 MG TABLET PO (08:21)
[2023-11-03] MEDS: Cholecalciferol (Vitamin D3) 25 MCG TABLET PO (08:21)
[2023-11-03] MEDS: Acetaminophen 325 MG TABLET 975 MG PO ×2 (08:21→16:09)
[2023-11-03] MEDS: Heparin Sodium,Porcine Flush 50 UNITS/5 ML SYRINGE IVFLUSH ×2 (08:22→22:02)
[2023-11-03] MEDS: Lidocaine 4 % Patch ADH..PATCH 1 PATCH TRANSDERMA (08:22)
[2023-11-03] MEDS: 0.9 % Sodium Chloride Flush 3 ML SYRINGE IVFLUSH ×3 (08:23→22:03)
--- NOTE | 2023-11-03 08:30 | HO.PM.IMPN ---
Subjective Subjective Date of Service: 11/03/23 Interval History: no complaints Physical Exam Vital Signs: Vital Signs: Last Vital Signs Temp 97.1 F 11/03/23 07:44 Pulse 89 11/03/23 07:56 Resp 18 11/03/23 07:56 BP 131/64 11/03/23 07:44 Pulse Ox 96 11/03/23 07:44 O2 Del Method Room Air 11/03/23 07:44 O2 Flow Rate 2 11/03/23 02:59 BMI result Body Mass Index 25.0 Const: Other: Const: General: cooperative, healthy appearing and no acute distress Resp: Effort & Inspection: normal respiratory effort and able to speak in complete sentences Cardio: Rate: regular rate Peripheral pulses: Peripheral pulses 2+ throughout GI: Palpation (GI): Soft to palpationSkin: chronic skin findings Extrem: Other: Right shoulder dressing is c/d/i. Able to flex and extend digits. Sensation intact. Objective Data Active Medications Acetaminophen (Acetaminophen 325 Mg Tablet) 975 mg PO QSHIFT [facility] Last Admin: 11/03/23 00:55 Dose: Not Given Documented By: NORI Non-Admin Reason: Patient Asleep Albuterol Sulfate (Albuterol Sulfate 90 Mcg 8 Gm Inhaler) 2 puff INHALE Q4H PRN PRN Reason: Shortness Of Breath Or Wheezing Apixaban (Apixaban 5 Mg Tablet) 5 mg PO BID [facility] Last Admin: 10/28/23 09:19 Dose: 5 mg Documented By: HENRIK Docusate Sodium (Docusate Sodium 100 Mg Capsule) 100 mg PO BID [facility] Last Admin: 11/02/23 20:02 Dose: 100 mg Documented By: NORI Fluticasone Propionate (Fluticasone Propionate 250 Mcg Blst.W.Dev) 1 puff INHALE RBID [facility] Last Admin: 11/03/23 07:54 Dose: 1 puff Documented By: GWEN Heparin Sodium (Porcine) (Heparin Sodium,Porcine Flush 50 Units/5 Ml Syringe) 50 units IVFLUSH BID [facility] Last Admin: 11/03/23 05:50 Dose: Not Given Documented By: NORI Non-Admin Reason: Med Not Available Daptomycin 640 mg/ Sodium (Chloride) 62.8 mls @ 100 mls/hr IV Q24H [facility] Stop: 11/09/23 16:38 Last Infusion: 11/02/23 17:56 Dose: Infused Documented By: BAUTISTA Lidocaine (Lidocaine 4 % Patch Adh..Patch) 1 patch TRANSDERMA DAILY [facility]; Protocol Last Admin: 11/02/23 08:23 Dose: 1 patch Documented By: BAUTISTA Montelukast Sodium (Montelukast Sodium 10 Mg Tablet) 10 mg PO DAILY [facility] Last Admin: 11/02/23 08:20 Dose: 10 mg Documented By: BAUTISTA Omeprazole (Omeprazole 40 Mg Capsule.) 40 mg PO BID@0630,1630 [facility] Last Admin: 11/03/23 06:16 Dose: 40 mg Documented By: NORI Oxycodone HCl (Oxycodone Hcl Immed Release 5 Mg Tablet) 5 mg PO Q8H PRN PRN Reason: mpain Last Admin: 11/03/23 06:16 Dose: 5 mg Documented By: NORI Polyethylene Glycol (Polyethylene Glycol 3350 17 Gm Powd.Pack) 17 gm PO BID [facility] Last Admin: 11/02/23 20:02 Dose: 17 gm Documented By: NORI Sodium Chloride (0.9 % Sodium Chloride Flush 3 Ml Syringe) 3 ml IVFLUSH QSHIFT [facility] Last Admin: 11/02/23 20:02 Dose: 3 ml Documented By: NORI Vitamin D (Cholecalciferol (Vitamin D3) 25 Mcg Tablet) 25 mcg PO DAILY [facility] Last Admin: 11/02/23 08:22 Dose: 25 mcg Documented By: BAUTISTA Labs 10/29/23 13:20 10/28/23 05:14 Assessment and Plan (1) Osteomyelitis: Status: Acute (2) Bacteremia due to Gram-positive bacteria: Status: Acute Plan 73F PMH COPD on home O2 (2L/min NC), hepatitis C, IV drug use, MRSA abscesses,?C.diff infection, E. coli colitis, osteomyelitis (humerus, clavicle, and scapula) with MSSA bacteremia (June 2023), coccyx chronic ulcer, occlusive bilat DVT, anemia and PUD. Acute on chronic blood loss anemia 2/2 GI blood loss. Patient has PUD on EGD from Aug 2023 pending repeat CBC total 4 units prbc this admission seen by GI dr Martinez, h/h stable, PPI Hold Eliquis monitor H&H MRSA bacteremia 2/2 Osteomyelitis (humerus, clavicle and scapula) TTE 55-60%, repeat blood cultures 10/19/23 - negative Right shoulder ct scan:Large glenohumeral joint effusion with a lobulated extension. shoulder abcess drainged by Ortho team 10/16/23 d/w ID - Daptomycin, to finish by 11/30/2023 to finish 6 weeks Abx. cpk weekly Acute kidney injury. resolved Chronic hypoxic failure 2/2 COPD Continue supplemental oxygen to keep oxygen saturation above 90%, nebs prn, Continue montelukast . Bilateral occlusive deep venous thrombosis. s/p ivc filter Eliquis History of hepatitic C viral load negative d/w hematology: thrombocytopenia also mutlifactroial -hepatitis c-possible liver dis /also has mrsa bacteremia History of IVDU. claims not using IV drugs.but utox positive for fentanyl/coacaine addiction consult-continue methadone. Chronic decubitus ulcer, coccyx,elbow right . Healing: added wound care recommendations: DVT PPx Eliquis reason for continued hospitalization: Pending safe discharge plan to a facility to finish IV antibiotics course. Quality Stroke Does the patient have a stroke diagnosis?: No VTE Prior VTE?: Yes VTE Risk Level:: Medical - moderate - high VTE Device Contraindication: Procedure Contraindicated VTE Drug Contraindication: Treatment Not Indicated
[2023-11-03 15:22] VITALS: BP 132/54; PULSE 88; RESP 14; TEMP 36.5; O2SAT 97
--- NOTE | 2023-11-03 16:00 | MHC.RECOVRN ---
Met with pt to check in and provide support. Pt no longer receiving methadone, states If you didn't bring it up I wouldn't have even thought of it. Pt aware pain medication is available and reports taking it as needed. Pt denies questions or concerns for t/w.
--- NOTE | 2023-11-03 17:57 | PC.NURSE ---
Patient refused stool softeners, did have bowel movement today, stool formed. Patient constantly c/o pain 10 of of 10 to her back and right shoulder. When assessed after medication administration patient communicated that pain medication helps but only for little while. Dressing on the coccyx changed after bowel movement but patient refused the dressing change on the shoulder stating she was in too much pain and that the dressing was just changed .
[2023-11-03 19:21] VITALS: BP 116/63; PULSE 81; RESP 16; TEMP 36.4; O2SAT 98
[2023-11-03 19:36] VITALS: PULSE 81; RESP 16
[2023-11-03] MEDS: Zolpidem Tartrate 5 MG TABLET PO (22:02)
[2023-11-04] MEDS: Acetaminophen 325 MG TABLET 975 MG PO ×3 (00:23→15:35)
[2023-11-04 03:28] VITALS: BP 124/51; PULSE 86; RESP 17; TEMP 36.4; O2SAT 96
[2023-11-04] MEDS: Omeprazole 40 MG CAPSULE.DR PO ×2 (06:02→15:35)
[2023-11-04] MEDS: Fluticasone Propionate 250 MCG BLST.W.DEV 1 PUFF INHALE ×2 (07:47→19:02)
[2023-11-04 07:48] VITALS: PULSE 86; RESP 17; O2SAT 96
[2023-11-04 08:00] VITALS: BP 122/64; PULSE 87; RESP 18; TEMP 36.5; O2SAT 95
[2023-11-04] MEDS: 0.9 % Sodium Chloride Flush 3 ML SYRINGE IVFLUSH (08:11)
[2023-11-04] MEDS: Montelukast Sodium 10 MG TABLET PO (08:11)
[2023-11-04] MEDS: Cholecalciferol (Vitamin D3) 25 MCG TABLET PO (08:11)
[2023-11-04] MEDS: Heparin Sodium,Porcine Flush 50 UNITS/5 ML SYRINGE IVFLUSH ×2 (08:11→20:27)
[2023-11-04] MEDS: Lidocaine 4 % Patch ADH..PATCH 1 PATCH TRANSDERMA (08:13)
--- NOTE | 2023-11-04 09:03 | P.PNIM_ITS ---
Subjective Subjective Date of Service: 11/04/23 Interval History: no complaints Physical Exam 2 Vital Signs: Vital Signs: Last Vital Signs Temp 97.7 F 11/04/23 08:00 Pulse 87 11/04/23 08:00 Resp 18 11/04/23 08:00 BP 122/64 11/04/23 08:00 Pulse Ox 95 11/04/23 08:00 O2 Del Method Nasal Cannula 11/04/23 08:00 O2 Flow Rate 2 11/04/23 08:00 BMI result Body Mass Index 25.0 Const: Other: Const: General: cooperative, healthy appearing and no acute distress Resp: Effort & Inspection: normal respiratory effort and able to speak in complete sentences Cardio: Rate: regular rate Peripheral pulses: Peripheral pulses 2+ throughout GI: Palpation (GI): Soft to palpationSkin: chronic skin findings Extrem: Other: Right shoulder dressing is c/d/i. Able to flex and extend digits. Sensation intact. Objective Data Active Medications Acetaminophen (Acetaminophen 325 Mg Tablet) 975 mg PO QSHIFT [facility] Last Admin: 11/04/23 08:11 Dose: 975 mg Documented By: NANCIE Albuterol Sulfate (Albuterol Sulfate 90 Mcg 8 Gm Inhaler) 2 puff INHALE Q4H PRN PRN Reason: Shortness Of Breath Or Wheezing Apixaban (Apixaban 5 Mg Tablet) 5 mg PO BID [facility] Last Admin: 10/28/23 09:19 Dose: 5 mg Documented By: HENRIK Docusate Sodium (Docusate Sodium 100 Mg Capsule) 100 mg PO BID [facility] Last Admin: 11/04/23 08:11 Dose: Not Given Documented By: NANCIE Non-Admin Reason: Patient Refused Fluticasone Propionate (Fluticasone Propionate 250 Mcg Blst.W.Dev) 1 puff INHALE RBID [facility] Last Admin: 11/04/23 07:47 Dose: 1 puff Documented By: GWEN Heparin Sodium (Porcine) (Heparin Sodium,Porcine Flush 50 Units/5 Ml Syringe) 50 units IVFLUSH BID [facility] Last Admin: 11/04/23 08:11 Dose: 50 units Documented By: NANCIE Daptomycin 640 mg/ Sodium (Chloride) 62.8 mls @ 100 mls/hr IV Q24H [facility] Stop: 11/09/23 16:38 Last Infusion: 11/03/23 17:19 Dose: Infused Documented By: BOBBY Lidocaine (Lidocaine 4 % Patch Adh..Patch) 1 patch TRANSDERMA DAILY [facility]; Protocol Last Admin: 11/04/23 08:13 Dose: 1 patch Documented By: NANCIE Montelukast Sodium (Montelukast Sodium 10 Mg Tablet) 10 mg PO DAILY [facility] Last Admin: 11/04/23 08:11 Dose: 10 mg Documented By: NANCIE Omeprazole (Omeprazole 40 Mg Capsule.Dr) 40 mg PO BID@0630,1630 [facility] Last Admin: 11/04/23 06:02 Dose: 40 mg Documented By: FIDENCIO Oxycodone HCl (Oxycodone Hcl Immed Release 5 Mg Tablet) 5 mg PO Q8H PRN PRN Reason: mpain Last Admin: 11/03/23 23:05 Dose: 5 mg Documented By: FIDENCIO Polyethylene Glycol (Polyethylene Glycol 3350 17 Gm Powd.Pack) 17 gm PO BID [facility] Last Admin: 11/04/23 08:12 Dose: Not Given Documented By: NANCIE Non-Admin Reason: Patient Refused Sodium Chloride (0.9 % Sodium Chloride Flush 3 Ml Syringe) 3 ml IVFLUSH QSHIFT [facility] Last Admin: 11/04/23 08:11 Dose: 3 ml Documented By: NANCIE Vitamin D (Cholecalciferol (Vitamin D3) 25 Mcg Tablet) 25 mcg PO DAILY [facility] Last Admin: 11/04/23 08:11 Dose: 25 mcg Documented By: NANCIE Zolpidem Tartrate (Zolpidem Tartrate 5 Mg Tablet) 5 mg PO BEDTIME PRN PRN Reason: Insomnia Last Admin: 11/03/23 22:02 Dose: 5 mg Documented By: FIDENCIO Labs 10/29/23 13:20 10/28/23 05:14 Labs: Laboratory Results - last 24 hr 10/28/23 13:21 Crossmatch See Detail Assessment and Plan (1) Osteomyelitis: Status: Acute (2) Bacteremia due to Gram-positive bacteria: Status: Acute Plan 73F PMH COPD on home O2 (2L/min NC), hepatitis C, IV drug use, MRSA abscesses,?C.diff infection, E. coli colitis, osteomyelitis (humerus, clavicle, and scapula) with MSSA bacteremia (June 2023), coccyx chronic ulcer, occlusive bilat DVT, anemia and PUD. Acute on chronic blood loss anemia 2/2 GI blood loss. Patient has PUD on EGD from Aug 2023 pending repeat CBC total 4 units prbc this admission seen by GI dr Martinez, h/h stable, PPI Hold Eliquis monitor H&H MRSA bacteremia 2/2 Osteomyelitis (humerus, clavicle and scapula) TTE 55-60%, repeat blood cultures 10/19/23 - negative Right shoulder ct scan:Large glenohumeral joint effusion with a lobulated extension. shoulder abcess drainged by Ortho team 10/16/23 d/w ID - Daptomycin, to finish by 11/30/2023 to finish 6 weeks Abx. cpk weekly Acute kidney injury. resolved Chronic hypoxic failure 2/2 COPD Continue supplemental oxygen to keep oxygen saturation above 90%, nebs prn, Continue montelukast . Bilateral occlusive deep venous thrombosis. s/p ivc filter Eliquis History of hepatitic C viral load negative d/w hematology: thrombocytopenia also mutlifactroial -hepatitis c-possible liver dis /also has mrsa bacteremia History of IVDU. claims not using IV drugs.but utox positive for fentanyl/coacaine addiction consult-continue methadone. Chronic decubitus ulcer, coccyx,elbow right . Healing: added wound care recommendations: DVT PPx Eliquis reason for continued hospitalization: Pending safe discharge plan to a facility to finish IV antibiotics course. Quality Stroke Does the patient have a stroke diagnosis?: No VTE Prior VTE?: Yes VTE Risk Level:: Medical - moderate - high VTE Device Contraindication: Procedure Contraindicated VTE Drug Contraindication: Treatment Not Indicated
[2023-11-04] MEDS: oxyCODONE HCl Immed Release 5 MG TABLET PO ×2 (10:07→20:26)
[2023-11-04 15:20] VITALS: BP 111/55; PULSE 86; RESP 17; TEMP 36.3; O2SAT 96
[2023-11-04 19:04] VITALS: PULSE 84; RESP 17; O2SAT 93
[2023-11-04 19:58] VITALS: BP 142/78; PULSE 87; RESP 17; TEMP 37.1; O2SAT 94
[2023-11-04] MEDS: Zolpidem Tartrate 5 MG TABLET PO (20:26)
[2023-11-05 04:00] VITALS: BP 130/67; PULSE 92; RESP 16; TEMP 36.2; O2SAT 94
[2023-11-05] MEDS: oxyCODONE HCl Immed Release 5 MG TABLET PO ×3 (04:56→14:15)
[2023-11-05] MEDS: Omeprazole 40 MG CAPSULE.DR PO ×2 (04:56→15:22)
[2023-11-05 06:49] VITALS: BP 124/69; PULSE 92; RESP 16; TEMP 36.1; O2SAT 98
[2023-11-05] MEDS: 0.9 % Sodium Chloride Flush 3 ML SYRINGE IVFLUSH ×2 (07:08→15:23)
[2023-11-05] MEDS: Docusate Sodium 100 MG CAPSULE PO ×2 (07:12→19:52)
[2023-11-05] MEDS: Cholecalciferol (Vitamin D3) 25 MCG TABLET PO (07:12)
[2023-11-05] MEDS: Acetaminophen 325 MG TABLET 975 MG PO ×2 (07:12→15:21)
[2023-11-05] MEDS: Lidocaine 4 % Patch ADH..PATCH 1 PATCH TRANSDERMA (07:13)
[2023-11-05] MEDS: Heparin Sodium,Porcine Flush 50 UNITS/5 ML SYRINGE IVFLUSH ×2 (07:13→19:52)
[2023-11-05] MEDS: Montelukast Sodium 10 MG TABLET PO (07:13)
[2023-11-05] MEDS: polyethylene glycoL 3350 17 GM POWD.PACK PO (07:13)
[2023-11-05] MEDS: Fluticasone Propionate 250 MCG BLST.W.DEV 1 PUFF INHALE (08:14)
[2023-11-05 08:15] VITALS: PULSE 99; RESP 16; O2SAT 98
--- NOTE | 2023-11-05 09:36 | HO.PM.IMPN ---
Subjective Subjective Date of Service: 11/05/23 Interval History: no complaints Physical Exam Vital Signs: Vital Signs: Last Vital Signs Temp 97 F 11/05/23 06:49 Pulse 99 11/05/23 08:15 Resp 16 11/05/23 08:15 BP 124/69 11/05/23 06:49 Pulse Ox 98 11/05/23 06:49 O2 Del Method Nasal Cannula 11/05/23 06:49 O2 Flow Rate 2 11/05/23 06:49 BMI result Body Mass Index 25.0 Const: Other: Const: General: cooperative, healthy appearing and no acute distress Resp: Effort & Inspection: normal respiratory effort and able to speak in complete sentences Cardio: Rate: regular rate Peripheral pulses: Peripheral pulses 2+ throughout GI: Palpation (GI): Soft to palpationSkin: chronic skin findings Extrem: Other: Right shoulder dressing is c/d/i. Able to flex and extend digits. Sensation intact. Objective Data Active Medications Acetaminophen (Acetaminophen 325 Mg Tablet) 975 mg PO QSHIFT [facility] Last Admin: 11/05/23 07:12 Dose: 975 mg Documented By: ROJELIO Albuterol Sulfate (Albuterol Sulfate 90 Mcg 8 Gm Inhaler) 2 puff INHALE Q4H PRN PRN Reason: Shortness Of Breath Or Wheezing Apixaban (Apixaban 5 Mg Tablet) 5 mg PO BID [facility] Last Admin: 10/28/23 09:19 Dose: 5 mg Documented By: HENRIK Docusate Sodium (Docusate Sodium 100 Mg Capsule) 100 mg PO BID [facility] Last Admin: 11/05/23 07:12 Dose: 100 mg Documented By: ROJELIO Fluticasone Propionate (Fluticasone Propionate 250 Mcg Blst.W.Dev) 1 puff INHALE RBID [facility] Last Admin: 11/05/23 08:14 Dose: 1 puff Documented By: ARMANI Heparin Sodium (Porcine) (Heparin Sodium,Porcine Flush 50 Units/5 Ml Syringe) 50 units IVFLUSH BID [facility] Last Admin: 11/05/23 07:13 Dose: 50 units Documented By: ROJELIO Daptomycin 640 mg/ Sodium (Chloride) 62.8 mls @ 100 mls/hr IV Q24H [facility] Stop: 11/09/23 16:38 Last Infusion: 11/04/23 16:46 Dose: Infused Documented By: RANI Lidocaine (Lidocaine 4 % Patch Adh..Patch) 1 patch TRANSDERMA DAILY [facility]; Protocol Last Admin: 11/05/23 07:13 Dose: 1 patch Documented By: ROJELIO Montelukast Sodium (Montelukast Sodium 10 Mg Tablet) 10 mg PO DAILY [facility] Last Admin: 11/05/23 07:13 Dose: 10 mg Documented By: ROJELIO Omeprazole (Omeprazole 40 Mg Capsule.Dr) 40 mg PO BID@0630,1630 [facility] Last Admin: 11/05/23 04:56 Dose: 40 mg Documented By: CARL Oxycodone HCl (Oxycodone Hcl Immed Release 5 Mg Tablet) 5 mg PO Q8H PRN PRN Reason: mpain Last Admin: 11/05/23 07:13 Dose: 5 mg Documented By: ROJELIO Polyethylene Glycol (Polyethylene Glycol 3350 17 Gm Powd.Pack) 17 gm PO BID [facility] Last Admin: 11/05/23 07:13 Dose: 17 gm Documented By: ROJELIO Sodium Chloride (0.9 % Sodium Chloride Flush 3 Ml Syringe) 3 ml IVFLUSH QSHIFT [facility] Last Admin: 11/05/23 07:08 Dose: 3 ml Documented By: ROJELIO Vitamin D (Cholecalciferol (Vitamin D3) 25 Mcg Tablet) 25 mcg PO DAILY [facility] Last Admin: 11/05/23 07:12 Dose: 25 mcg Documented By: ROJELIO Zolpidem Tartrate (Zolpidem Tartrate 5 Mg Tablet) 5 mg PO BEDTIME PRN PRN Reason: Insomnia Last Admin: 11/04/23 20:26 Dose: 5 mg Documented By: CARL Labs 10/29/23 13:20 10/28/23 05:14 Assessment and Plan (1) Osteomyelitis: Status: Acute (2) Bacteremia due to Gram-positive bacteria: Status: Acute Plan 73F PMH COPD on home O2 (2L/min NC), hepatitis C, IV drug use, MRSA abscesses,?C.diff infection, E. coli colitis, osteomyelitis (humerus, clavicle, and scapula) with MSSA bacteremia (June 2023), coccyx chronic ulcer, occlusive bilat DVT, anemia and PUD. Acute on chronic blood loss anemia 2/2 GI blood loss. Patient has PUD on EGD from Aug 2023 pending repeat CBC total 4 units prbc this admission seen by GI dr Martinez, h/h stable, PPI Hold Eliquis monitor H&H MRSA bacteremia 2/2 Osteomyelitis (humerus, clavicle and scapula) TTE 55-60%, repeat blood cultures 10/19/23 - negative Right shoulder ct scan:Large glenohumeral joint effusion with a lobulated extension. shoulder abcess drainged by Ortho team 10/16/23 d/w ID - Daptomycin, to finish by 11/30/2023 to finish 6 weeks Abx. cpk weekly Acute kidney injury. resolved Chronic hypoxic failure 2/2 COPD Continue supplemental oxygen to keep oxygen saturation above 90%, nebs prn, Continue montelukast . Bilateral occlusive deep venous thrombosis. s/p ivc filter Eliquis History of hepatitic C viral load negative d/w hematology: thrombocytopenia also mutlifactroial -hepatitis c-possible liver dis /also has mrsa bacteremia History of IVDU. claims not using IV drugs.but utox positive for fentanyl/coacaine addiction consult-continue methadone. Chronic decubitus ulcer, coccyx,elbow right . Healing: added wound care recommendations: DVT PPx Eliquis reason for continued hospitalization: Pending safe discharge plan to a facility to finish IV antibiotics course. Quality Stroke Does the patient have a stroke diagnosis?: No VTE Prior VTE?: Yes VTE Risk Level:: Medical - moderate - high VTE Device Contraindication: Procedure Contraindicated VTE Drug Contraindication: Treatment Not Indicated
--- NOTE | 2023-11-05 12:06 | MHC.CM.PN ---
EMR reviewed. Patient successfully weaned off Methadone. Update sent to [facility], who will accept the patient. [facility] will submit for auth. Plan to admit 11/07 pending auth. CM will continue to follow.
[2023-11-05 15:41] VITALS: BP 136/76; PULSE 92; RESP 18; TEMP 36.2; O2SAT 97
--- NOTE | 2023-11-05 15:41 | PC.NURSE ---
Patient refused compression stockings ,risks explained,encouraged activity and leg excercises,patient also refused to have her legs elevated
--- NOTE | 2023-11-05 16:17 | PC.NURSE ---
Patient questioning her discharge plan,case management notified and is speaking with patient at present
--- NOTE | 2023-11-05 16:58 | PC.NURSE ---
Addendum entered by Luna Marks RN 11/05/23 21:46: Dr. Begum spoke with patient this evening regarding safe discharge and completion of IV antibiotics Original Note: patient still upset ,yelling and swearing,saying that employment evaluator/case manager told her she could leave ,which [facility] case staff said it is not true,Dr. Begum made aware of this situation and will come in and speak with patient.
[2023-11-05] MEDS: LORazepam 0.5 MG TABLET PO (17:29)
[2023-11-05] MEDS: Zolpidem Tartrate 5 MG TABLET PO (19:52)
[2023-11-05 20:00] VITALS: BP 132/73; PULSE 87; RESP 16; TEMP 36.7; O2SAT 99
[2023-11-05 20:53] LABS: Glucose, Whole Blood 120 mg/dL (60-115)
[2023-11-06] MEDS: oxyCODONE HCl Immed Release 5 MG TABLET PO ×2 (00:18→14:20)
[2023-11-06] MEDS: Acetaminophen 325 MG TABLET 975 MG PO ×3 (00:18→15:41)
[2023-11-06] MEDS: 0.9 % Sodium Chloride Flush 3 ML SYRINGE IVFLUSH ×4 (00:19→20:02)
[2023-11-06 03:33] VITALS: BP 123/63; PULSE 94; RESP 16; TEMP 36.6; O2SAT 98
[2023-11-06] MEDS: Omeprazole 40 MG CAPSULE.DR PO ×2 (05:16→15:41)
[2023-11-06 06:31] LABS: Hematocrit 28.1 % (37.0-47.0); Hemoglobin 9.5 g/dl (12.0-16.0); Mean Corpuscular HGB Conc 33.8 g/dl (31.0-35.0); Mean Corpuscular Hemoglobin 31.7 pg (27.0-33.0); Mean Corpuscular Volume 93.7 fL (80.0-98.0); Mean Platelet Volume 9.7 fL (9.4-12.3); Platelet Count 210 X10*3/uL (160-400); Red Cell Distribution Width 14.6 % (11.0-16.0); White Blood Count 5.7 X10*3/uL (4.8-10.8)
[2023-11-06 06:45] LABS: Alanine Aminotransferase 7 U/L (0-31); Albumin Level 1.5 g/dL (3.5-5.0); Alkaline Phosphatase 205 U/L (39-117); Anion Gap 10 (12-20); Aspartate Amino Transferase 9 U/L (5-31); Bilirubin Direct < 0.2 mg/dL (0.0-0.5); Bilirubin Total 0.2 mg/dL (0.0-1.0); Blood Urea Nitrogen 13 mg/dL (9-16); Calcium 8.2 mg/dL (8.4-10.2); Carbon Dioxide 24 mmol/L (22-29); Chloride 103 mmol/L (96-108); Creatinine Clr Calc Pharmacy 74.9; Estimated Glomerular Filt Rate > 60; Glucose Fasting 83 mg/dL (60-99); Potassium 3.5 mmol/L (3.3-5.1); Sodium 133 mmol/L (135-145); Total Protein 6.7 g/dL (6.5-8.0)
[2023-11-06] MEDS: Heparin Sodium,Porcine Flush 50 UNITS/5 ML SYRINGE IVFLUSH ×2 (07:56→23:00)
[2023-11-06] MEDS: Cholecalciferol (Vitamin D3) 25 MCG TABLET PO (07:56)
[2023-11-06] MEDS: Montelukast Sodium 10 MG TABLET PO (07:56)
[2023-11-06 08:00] VITALS: BP 142/77; PULSE 88; RESP 17; TEMP 36.2; O2SAT 97
[2023-11-06] MEDS: Lidocaine 4 % Patch ADH..PATCH 1 PATCH TRANSDERMA (08:02)
[2023-11-06] MEDS: Fluticasone Propionate 250 MCG BLST.W.DEV 1 PUFF INHALE ×2 (08:16→20:36)
[2023-11-06 08:19] VITALS: PULSE 88; RESP 16; O2SAT 98
--- NOTE | 2023-11-06 09:31 | P.PNIM_ITS ---
Subjective Subjective Date of Service: 11/06/23 Interval History: no complaints Physical Exam 2 Vital Signs: Vital Signs: Last Vital Signs Temp 97.2 F 11/06/23 08:00 Pulse 88 11/06/23 08:19 Resp 16 11/06/23 08:19 BP 142/77 H 11/06/23 08:00 Pulse Ox 97 11/06/23 08:00 O2 Del Method Nasal Cannula 11/06/23 08:00 O2 Flow Rate 2.0 11/06/23 08:00 BMI result Body Mass Index 25.0 Const: Other: Const: General: cooperative, healthy appearing and no acute distress Resp: Effort & Inspection: normal respiratory effort and able to speak in complete sentences Cardio: Rate: regular rate Peripheral pulses: Peripheral pulses 2+ throughout GI: Palpation (GI): Soft to palpationSkin: chronic skin findings Extrem: Other: Right shoulder dressing is c/d/i. Able to flex and extend digits. Sensation intact. Objective Data Active Medications Acetaminophen (Acetaminophen 325 Mg Tablet) 975 mg PO QSHIFT [facility] Last Admin: 11/06/23 07:56 Dose: 975 mg Documented By: NANCIE Albuterol Sulfate (Albuterol Sulfate 90 Mcg 8 Gm Inhaler) 2 puff INHALE Q4H PRN PRN Reason: Shortness Of Breath Or Wheezing Apixaban (Apixaban 5 Mg Tablet) 5 mg PO BID [facility] Last Admin: 10/28/23 09:19 Dose: 5 mg Documented By: HENRIK Docusate Sodium (Docusate Sodium 100 Mg Capsule) 100 mg PO BID [facility] Last Admin: 11/06/23 08:02 Dose: Not Given Documented By: NANCIE Non-Admin Reason: Patient Refused Fluticasone Propionate (Fluticasone Propionate 250 Mcg Blst.W.Dev) 1 puff INHALE RBID [facility] Last Admin: 11/06/23 08:16 Dose: 1 puff Documented By: ARMANI Heparin Sodium (Porcine) (Heparin Sodium,Porcine Flush 50 Units/5 Ml Syringe) 50 units IVFLUSH BID [facility] Last Admin: 11/06/23 07:56 Dose: 50 units Documented By: NANCIE Daptomycin 640 mg/ Sodium (Chloride) 62.8 mls @ 100 mls/hr IV Q24H [facility] Stop: 02/09/24 16:38 Last Infusion: 11/05/23 16:58 Dose: Infused Documented By: JOE Lidocaine (Lidocaine 4 % Patch Adh..Patch) 1 patch TRANSDERMA DAILY [facility]; Protocol Last Admin: 11/06/23 08:02 Dose: 1 patch Documented By: NANCIE Montelukast Sodium (Montelukast Sodium 10 Mg Tablet) 10 mg PO DAILY [facility] Last Admin: 11/06/23 07:56 Dose: 10 mg Documented By: NANCIE Omeprazole (Omeprazole 40 Mg Capsule.Dr) 40 mg PO BID@0630,1630 [facility] Last Admin: 11/06/23 05:16 Dose: 40 mg Documented By: CARL Oxycodone HCl (Oxycodone Hcl Immed Release 5 Mg Tablet) 5 mg PO Q8H PRN PRN Reason: mpain Last Admin: 11/06/23 00:18 Dose: 5 mg Documented By: CARL Polyethylene Glycol (Polyethylene Glycol 3350 17 Gm Powd.Pack) 17 gm PO BID [facility] Last Admin: 11/06/23 08:02 Dose: Not Given Documented By: NANCIE Non-Admin Reason: Patient Refused Sodium Chloride (0.9 % Sodium Chloride Flush 3 Ml Syringe) 3 ml IVFLUSH QSHIFT [facility] Last Admin: 11/06/23 07:57 Dose: 3 ml Documented By: NANCIE Vitamin D (Cholecalciferol (Vitamin D3) 25 Mcg Tablet) 25 mcg PO DAILY [facility] Last Admin: 11/06/23 07:56 Dose: 25 mcg Documented By: NANCIE Zolpidem Tartrate (Zolpidem Tartrate 5 Mg Tablet) 5 mg PO BEDTIME PRN PRN Reason: Insomnia Last Admin: 11/05/23 19:52 Dose: 5 mg Documented By: JOE Labs 11/06/23 06:13 11/06/23 06:13 Labs: Laboratory Results - last 24 hr 11/05/23 11/06/23 20:49 06:13 MCV 93.7 MCH 31.7 MCHC 33.8 RDW 14.6 Plt Count 210 MPV 9.7 Absolute Nucleated RBC 0.000 Nucleated RBC % (auto) 0.0 Anion Gap 10 L Estim Creat Clear Calc 74.9 Estimated GFR > 60 POC Glucose 120 H Fasting Glucose 83 Calcium 8.2 L Total Bilirubin 0.2 Direct Bilirubin < 0.2 AST 9 ALT 7 Alkaline Phosphatase 205 H Total Creatine Kinase 7 L Total Protein 6.7 Albumin 1.5 L Assessment and Plan (1) Osteomyelitis: Status: Acute (2) Bacteremia due to Gram-positive bacteria: Status: Acute Plan 73F PMH COPD on home O2 (2L/min NC), hepatitis C, IV drug use, MRSA abscesses,?C.diff infection, E. coli colitis, osteomyelitis (humerus, clavicle, and scapula) with MSSA bacteremia (June 2023), coccyx chronic ulcer, occlusive bilat DVT, anemia and PUD. Acute on chronic blood loss anemia 2/2 GI blood loss. Patient has PUD on EGD from Aug 2023 pending repeat CBC total 4 units prbc this admission seen by GI dr Martinez, h/h stable, PPI Hold Eliquis monitor H&H MRSA bacteremia 2/2 Osteomyelitis (humerus, clavicle and scapula) TTE 55-60%, repeat blood cultures 10/19/23 - negative Right shoulder ct scan:Large glenohumeral joint effusion with a lobulated extension. shoulder abcess drainged by Ortho team 10/16/23 d/w ID - Daptomycin, to finish by 11/30/2023 to finish 6 weeks Abx. cpk weekly Acute kidney injury. resolved Chronic hypoxic failure 2/2 COPD Continue supplemental oxygen to keep oxygen saturation above 90%, nebs prn, Continue montelukast . Bilateral occlusive deep venous thrombosis. s/p ivc filter Eliquis History of hepatitic C viral load negative d/w hematology: thrombocytopenia also mutlifactroial -hepatitis c-possible liver dis /also has mrsa bacteremia History of IVDU. claims not using IV drugs.but utox positive for fentanyl/coacaine addiction consult-continue methadone. Chronic decubitus ulcer, coccyx,elbow right . Healing: added wound care recommendations: DVT PPx Eliquis reason for continued hospitalization: Pending safe discharge plan to a facility to finish IV antibiotics course. Quality Stroke Does the patient have a stroke diagnosis?: No VTE Prior VTE?: Yes VTE Risk Level:: Medical - moderate - high VTE Device Contraindication: Procedure Contraindicated VTE Drug Contraindication: Treatment Not Indicated
--- NOTE | 2023-11-06 15:00 | PC.NURSE ---
200$ jackson at pt bedside counted by mich Chatman and confirmed amount with pt. Pt refusing to document and keep in safe with security.
[2023-11-06 15:35] VITALS: BP 179/89; PULSE 94; RESP 20; TEMP 36.4; O2SAT 97
[2023-11-06] MEDS: Fluticasone Propionate Nasal 16 GM SPRAY 1 SPRAY NOSTRIL-B ×2 (18:01→20:01)
[2023-11-06 19:40] VITALS: BP 135/81; PULSE 93; RESP 19; TEMP 36.1; O2SAT 97
[2023-11-06] MEDS: Docusate Sodium 100 MG CAPSULE PO (20:01)
[2023-11-06] MEDS: polyethylene glycoL 3350 17 GM POWD.PACK PO (20:01)
[2023-11-06] MEDS: Zolpidem Tartrate 5 MG TABLET PO (20:07)
[2023-11-06 20:39] VITALS: PULSE 85; RESP 18; O2SAT 98
[2023-11-07] MEDS: oxyCODONE HCl Immed Release 5 MG TABLET PO ×2 (01:42→09:18)
[2023-11-07] MEDS: Acetaminophen 325 MG TABLET 975 MG PO ×3 (01:43→15:16)
[2023-11-07 03:24] VITALS: BP 135/75; PULSE 87; RESP 18; TEMP 36.9; O2SAT 97
[2023-11-07] MEDS: HYDROmorphone HCl 1 MG/ML SYRINGE 0.8 MG IVPUSH (04:54)
[2023-11-07] MEDS: Omeprazole 40 MG CAPSULE.DR PO ×2 (04:55→15:16)
[2023-11-07 07:04] VITALS: BP 125/72; PULSE 90; RESP 18; TEMP 36.4; O2SAT 97
[2023-11-07 07:44] VITALS: PULSE 90; RESP 18; O2SAT 94
[2023-11-07] MEDS: Fluticasone Propionate 250 MCG BLST.W.DEV 1 PUFF INHALE (07:44)
[2023-11-07] MEDS: Heparin Sodium,Porcine Flush 50 UNITS/5 ML SYRINGE IVFLUSH (09:18)
[2023-11-07] MEDS: Montelukast Sodium 10 MG TABLET PO (09:19)
[2023-11-07] MEDS: 0.9 % Sodium Chloride Flush 3 ML SYRINGE IVFLUSH (09:19)
[2023-11-07] MEDS: Cholecalciferol (Vitamin D3) 25 MCG TABLET PO (09:19)
--- NOTE | 2023-11-07 11:18 | PM.DS ---
DS: Providers Provider Date of Service: 11/07/23 Date of admission: 10/08/23 21:48 Primary care physician: Karla Ceballos MD Consults: 10/09/23 09:22 Consult to Gastroenterology Routine Consulting Provider: [facility] Gastroenterology Services Reason for consultation: acute blood loss anemia-possible Gi bleed Has provider been notified: No 10/09/23 15:33 Consult to Wound Care Routine Reason for consultation: coccyx ulcer Has provider been notified: No 10/10/23 08:10 Consult to Vascular Surgery Routine Consulting Provider: [facility] Vascular Services Reason for consultation: b/l dvt ,Gi bleed -?need ivc filter Has provider been notified: No 10/10/23 11:54 Consult to Infectious Diseases Routine Consulting Provider: [facility] Infectious Disease Reason for consultation: gram positive bacteremia Has provider been notified: No 10/11/23 15:00 Addiction Medicine Routine Consulting Provider: Addiction Covering Reason for consultation: substance use Has provider been notified: No 10/11/23 15:45 Consult to Orthopedics Routine Consulting Provider: [facility] Orthopedic Surgeons Reason for consultation: abcess vs right shoulder septic arthritis Has provider been notified: No 10/15/23 08:42 Consult to Infectious Diseases Routine Consulting Provider: [facility] Infectious Disease Reason for consultation: DAPTOMYCIN 10/15/23 16:09 Consult to Cardiology Routine Consulting Provider: [facility] Cardiovascular Services Reason for consultation: persistent mrsa bacteremia ,also need shoulder abcess washout/ortho Has provider been notified: No DS: Diagnosis Discharge Diagnosis (1) Osteomyelitis: Status: Acute (2) Bacteremia due to Gram-positive bacteria: Status: Acute (3) GI bleed: Status: Chronic (4) Abscess of right shoulder: Status: Acute (5) Anemia: Status: Acute DS: Summary Hospital Course Hospital Course: Admission note HPI Elli Rivers is a [place]ish-speaking woman past medical history significant for COPD on home O2 (2L/min NC), hepatitis C, IV drug use, MRSA abscesses,?C.diff infection, E. coli colitis, osteomyelitis (humerus, clavicle, and scapula) with MSSA bacteremia (June 2023), coccyx chronic ulcer, occlusive bilat DVT, anemia and PUD presents to the emergency department complaining of pain to her extremities and back. She also complains of generalized weakness and inability to urinate. Patient denies any headache, shortness of breath, cough or chest pain. She denied fever or chills. Patient stated she has been using her home meds as well as motrin for pain. She said she has been taking at least 8 pills of motrin over the last few days but was unable to recall the doses. Denied alcohol abuse, tobacco smoking or illicit drug use. Chart review, patient was hospitalized last month with diagnosis of MRSA bacteremia that did not improved with vancomycin and was changed to daptomycin but, unfortunately, patient left AMA. She was also transfused with a total of 3 units of PRBCs due to severe anemia. In the ED, she was found to have normal vital signs and is currently requiring 3L/min of supplemental O2 via NC. Blood workup if his remarkable for anemia of 5.3, INR is elevated 1.8, creatinine is 1.87 (prior 0.66). ED tx: NS 1L/min, vancomycin 1,750 mg IV. Hospital course # Acute on chronic blood loss anemia 2/2 GI blood loss. Patient has PUD on EGD from Aug 2023. Transfused total 4 units prbc this admission. seen by GI dr Garcias, who recommended to hold on EGD and colonoscopy for the meantime given her fraility and bactermia. Treated with PPI twice daily. follow CBC and h/h stable. Eliquis was held. IVC filter was placed on 10/10/23. Eliquis was restarted with new drop in Hb. held and will keep on hold at time of discharge now. # MRSA bacteremia 2/2 Osteomyelitis (humerus, clavicle and scapula) TTE 55-60%, repeat blood cultures 10/19/23 was negative. Source from Right shoulder ct scan:Large glenohumeral joint effusion with a lobulated extension. shoulder abcess drainged by Ortho team 10/16/23 evaluated by infectious disease specialist who recommended Daptomycin, to finish by 11/30/2023 to finish 6 weeks Abx. CPK checked weekly # Acute kidney injury. resolved during hospital stay # Chronic hypoxic failure 2/2 COPD supplemental oxygen to keep oxygen saturation above 90%. Continue nebs prn, and montelukast Time Attestation Discharge coordination time: Greater than 30 minutes Quality: Safe Use of Opioids Does Pt have an Active Cancer Diagnosis on the Problem List?: No Quality: Stroke Does the patient have a stroke diagnosis?: No Physical Exam Vital Signs: Vital Signs: Last Vital Signs Temp 97.5 F 11/07/23 07:04 Pulse 90 11/07/23 07:44 Resp 18 11/07/23 07:44 BP 125/72 11/07/23 07:04 Pulse Ox 97 11/07/23 07:04 O2 Del Method Nasal Cannula 11/07/23 07:04 O2 Flow Rate 2 11/07/23 07:04 BMI result Body Mass Index 25.0 Const: Other: Const: General: cooperative, healthy appearing and no acute distress Resp: Effort & Inspection: normal respiratory effort and able to speak in complete sentences Cardio: Rate: regular rate Peripheral pulses: Peripheral pulses 2+ throughout GI: Palpation (GI): Soft to palpationSkin: chronic skin findings Extrem: Other: Right shoulder dressing is c/d/i. Able to flex and extend digits. Sensation intact. DS: Data Data Completed and Pending Completed studies during hospitalization [Text1]: Procedures Excision of Duodenum, Via Natural or Artificial Opening Endoscopic, Diagnostic (08/05/23) Excision of Left Large Intestine, Via Natural or Artificial Opening Endoscopic, Diagnostic (08/05/23) Excision of Stomach, Pylorus, Via Natural or Artificial Opening Endoscopic, Diagnostic (08/05/23) Insertion of Infusion Device into Inferior Vena Cava, Percutaneous Approach (08/15/23) Insertion of Infusion Device into Superior Vena Cava, Percutaneous Approach (08/15/23) Insertion of Infusion Device into Upper Vein, Percutaneous Approach (08/05/23) Transfusion of Nonautologous Red Blood Cells into Peripheral Vein, Percutaneous Approach (08/15/23) Ultrasonography of Inferior Vena Cava, Guidance (08/15/23) Ultrasonography of Superior Vena Cava, Guidance (08/15/23) Imaging Chest x-ray: Radiologist's impression: ITS Impressions Head CT 10/09/23 11:26 IMPRESSION: 1. No acute intracranial process seen. 2. Chronic bilateral maxillary and left middle ethmoid sinus inflammatory changes. Shoulder CT 10/11/23 14:39 IMPRESSION: 1. Absence of the distal clavicle as well as attenuation and fragmentation of the acromion is redemonstrated, similar when compared to the radiographs dated 08/18/2023. Focal erosion/cortical defect at the anteromedial aspect of the humeral head measuring up to 1.9 cm in ML dimension. It is unclear if this is present on the prior radiographs. 2. Large glenohumeral joint effusion with a lobulated extension along the anterosuperior aspect of the joint measuring up to 3.9 cm and likely corresponding to the patient's reported lump. This measures as simple fluid signal and is likely related to the joint space. Findings could indicate an infectious or inflammatory arthropathy in the appropriate clinical setting. 3. Moderate glenohumeral osteoarthritis. Superior subluxation of the humeral head indicating underlying rotator cuff tendon tears. Evaluation of the rotator cuff tendons severely limited on CT examination. 4. Patchy areas of scarring and nodularity within the right lung with evaluation significantly limited due to respiratory motion. Right middle lobe opacification with air bronchograms and peripheral cystic change. These findings appear new when compared to the CT thoracic spine dated 08/19/2023. Dedicated CT chest could help further evaluate. Shoulder X-Ray 10/12/23 10:15 IMPRESSION: 1. Redemonstration of absence of the distal clavicle. 2. Focal defect of the humeral head. 3. Increased soft tissue density surrounding the right humeral head consistent with shoulder effusion. Discharge Plan Discharge Anticipated Discharge Date/Time: 11/07/23 11:12 Patient Disposition: Home Health Service Discharge Diagnosis: MRSA Bacteremia Anemia Referrals: Karla Ceballos MD [Primary Care Provider] - 1 Week Discharge Medications: New lidocaine [Lidocaine Pain Relief] 4 % Adhesive Patch,Medicated 1 patch transdermal DAILY Qty: 30 0RF Protocol: Apply to: Apply to: back oxycodone 5 mg Tablet 5 mg PO Q8H PRN (Reason: mpain) Qty: 20 0RF Rx Instructions: Partial Fill upon patient request. daptomycin 500 mg recon soln 640 mg IV Q24H 23 Days Rx Instructions: administer over 30 mins Continued albuterol sulfate 2.5 mg /3 mL (0.083 %) solution for nebulization 2.5 mg inhalation Q4H PRN (Reason: Shortness Of Breath Or Wheezing) clonazepam 1 mg tablet 1 mg PO BEDTIME PRN (Reason: Anxiety) omeprazole 20 mg capsule,delayed release(DR/EC) 20 mg PO BID montelukast 10 mg tablet 10 mg PO DAILY fluticasone propionate [Flovent HFA] 220 mcg/actuation HFA aerosol inhaler 1 puff inhalation BID zolpidem 5 mg tablet 5 mg PO BEDTIME PRN (Reason: Insomnia) albuterol sulfate 90 mcg/actuation HFA aerosol inhaler 2 puff INHALATION Q4-6H PRN (Reason: Shortness Of Breath Or Wheezing) ferrous sulfate 325 mg (65 mg iron) tablet,delayed release (DR/EC) 650 mg PO DAILY cholecalciferol (vitamin D3) 25 mcg (1,000 unit) Tablet 25 mcg PO DAILY Held Eliquis 5 mg tablet 5 mg PO BID Hold Instructions: Follow with PCP to decide if needed or not. HOLD for now Discharge Orders: Discharge Order (Routine); Ordered 11/07/23 Ordered By: Nessa Roberts Diet: Advance to usual diet Activity on Discharge: As tolerated Stand Alone Forms: Patient Portal Discharge page Care Plan Goals: Wound care instructions 1. Turn and Reposition every 2 hours and as needed for patient comfort.? Use pillows or wedges to support off loading positions. 2. Off Load all bony prominences with use of pillows and heel boots if needed.? Apply Preventative foams where needed. ? 3. Monitor for incontinence and moisture control, use barrier creams when needed for prevention and treatment. 4. Provide adequate and supplemental nutrition. Place Nutrition consult if appropriate. 5. Order or Continue low air loss mattress. 6. Maintain blood glucose levels per Providers orders if applicable. 7. Coccyx and Right Elbow - Cleanse and irrigate with NS, Pat dry.? Apply barrier to periwound, lightly pack with Alginate / Durafiber AG, be sure to leave a wick to easy removal.? Cover with Foam dressing.? Change Daily. 8. Right Inner AC - Cleanse with NS moist gauze allow to dry. Apply cut to size hydrocolloid - change every 3 days. 9. Bilateral Heels - Apply Foam dressing for prevention. Off Load Pressure with boots or pillows. Health Concerns: Read below Plan of Treatment: Read below Assessment: Continue antibiotics as prescribed follow with Wound care as outpatient Discharge Date/Time: 11/07/23 17:32
--- NOTE | 2023-11-07 12:54 | MHC.CLN ---
F/U DIET=[id number]. RECEIVING ENSURE MAX BID (300 KCALS, 60 G PROTEIN) TO PROMOTE WOUND HEALING. PO INTAKE VARIABLE, 50-100%. APPEARS TO BE USUAL INTAKE. SKIN WITH UNSTAGEABLE AREA TO COCCYX AND REDNESS TO BILATERAL HEELS. CONTINUE TO MONITOR PO INTAKE AND SKIN INTEGRITY. RD TO FOLLOW WEEKLY.
--- NOTE | 2023-11-07 13:53 | MHC.CM.PN ---
Patient to dc to [facility] for LTC today at 1600 via [facility]. Patient is aware and has updated her sister. RN and MD aware. IMM was delivered. However patient refused to sign. Verbally reviewed and left copy at bedside.
[2023-11-07 15:16] VITALS: BP 136/65; PULSE 95; RESP 18; TEMP 36.3; O2SAT 96
[2023-11-07] MEDS: LORazepam 0.5 MG TABLET 0.25 MG PO (15:16)
== END 2023-11-07 17:32 | disposition home health service (06) | DRG 507 ==
LOC: HO.ED 17:19 → HO.EDOVER 22:04 → HO.IMC 10-09 11:29 → HO.EDOVER 10-09 11:57 → HO.IMC 10-09 12:40 → HO.S3 10-24 19:52
PROVIDERS: Internal Medicine; Orthopaedic Surgery; Surgery Vascular Surgery; Admitting Provider Internal Medicine; Emergency Provider Internal Medicine; PCP Pediatrics; Visit Provider Student in an Organized Health Care Education/Training Program
PROC: 06H03DZ Insertion of Intraluminal Device into Inferior Vena Cava, Percutaneous Approach (ICD-10-PCS; principal; 2023-10-10 10:30)
PROC: 0R9J0ZZ Drainage of Right Shoulder Joint, Open Approach (ICD-10-PCS; principal; 2023-10-16 14:00)
DX: M00.011 Staphylococcal arthritis, right shoulder (principal); K27.4 Chronic or unspecified peptic ulcer, site unspecified, with hemorrhage; D62 Acute posthemorrhagic anemia; N17.9 Acute kidney failure, unspecified; R78.81 Bacteremia; I82.413 Acute embolism and thrombosis of femoral vein, bilateral; J96.11 Chronic respiratory failure with hypoxia; M86.9 Osteomyelitis, unspecified; H54.8 Legal blindness, as defined in USA; G89.29 Other chronic pain; E87.6 Hypokalemia; D63.8 Anemia in other chronic diseases classified elsewhere; L89.012 Pressure ulcer of right elbow, stage 2; F11.90 Opioid use, unspecified, uncomplicated; D69.6 Thrombocytopenia, unspecified; J44.9 Chronic obstructive pulmonary disease, unspecified; B95.62 Methicillin resistant Staphylococcus aureus infection as the cause of diseases classified elsewhere; L89.150 Pressure ulcer of sacral region, unstageable; R79.1 Abnormal coagulation profile; Z86.19 Personal history of other infectious and parasitic diseases; Z20.822 Contact with and (suspected) exposure to COVID-19; Z99.81 Dependence on supplemental oxygen; Z88.0 Allergy status to penicillin; Z88.1 Allergy status to other antibiotic agents; Z88.2 Allergy status to sulfonamides; Z79.01 Long term (current) use of anticoagulants; Z79.899 Other long term (current) drug therapy
CPT/HCPCS: 0241U; 36415; 37191; 70450; 73030; 73200; 80048; 80053; 80076; 80202; 80307; 82272; 82550; 82565; 82607; 82746; 82947; 83540; 83605; 83615; 83735; 85007; 85014; 85018; 85027; 85049; 85610; 85652; 85730; 86140; 86141; 86850; 86900; 86901; 86923; 87040; 87070; 87073; 87077; 87147; 87186; 87205; 87389; 87522; 87635; 93308; 94640; 97163; 99024; 99285; A4364; C1769; C1880; C1894; C9113; J0878; J1170; J1642; J2250; J2704; J3010; J3370; J3371; J3475; P9016; Q9957

== ENCOUNTER 2023-10-08 21:48 | Outpatient (BNV) | payer OTHER, SELFPAY | END 2023-10-12 07:00 | PROVIDERS: Admitting Provider Internal Medicine; Emergency Provider Internal Medicine; PCP Pediatrics; Visit Provider Internal Medicine Cardiovascular Disease | DX: I35.8 Other nonrheumatic aortic valve disorders (principal); I34.0 Nonrheumatic mitral (valve) insufficiency | CPT/HCPCS: 93308 ==

== ENCOUNTER → 2023-10-08 21:48 | Outpatient (BNV) | payer OTHER, SELFPAY | PROVIDERS: Admitting Provider Internal Medicine; Emergency Provider Internal Medicine; Visit Provider Internal Medicine Gastroenterology | DX: R78.81 Bacteremia (principal); D64.9 Anemia, unspecified | CPT/HCPCS: 99223 ==

== ENCOUNTER → 2023-10-08 21:48 | Outpatient (BNV) | payer OTHER, SELFPAY | PROVIDERS: Admitting Provider Internal Medicine; Emergency Provider Internal Medicine; PCP Pediatrics; Visit Provider Nurse Practitioner Psychiatric/Mental Health | DX: F11.90 Opioid use, unspecified, uncomplicated (principal) | CPT/HCPCS: 99222; 99232; 99499 ==

== ENCOUNTER → 2023-10-08 21:48 | Outpatient (BNV) | payer OTHER, SELFPAY | PROVIDERS: Admitting Provider Internal Medicine; Emergency Provider Internal Medicine; Visit Provider Internal Medicine | DX: M86.9 Osteomyelitis, unspecified (principal); R78.81 Bacteremia; K92.2 Gastrointestinal hemorrhage, unspecified; L02.413 Cutaneous abscess of right upper limb; D63.8 Anemia in other chronic diseases classified elsewhere | CPT/HCPCS: 99223; 99231; 99232; 99233; 99239 ==

== ENCOUNTER → 2023-10-08 21:48 | Outpatient (BNV) | payer OTHER, SELFPAY | PROVIDERS: Admitting Provider Internal Medicine; Emergency Provider Internal Medicine; PCP Pediatrics; Visit Provider Internal Medicine | DX: L02.413 Cutaneous abscess of right upper limb (principal); R78.81 Bacteremia | CPT/HCPCS: 99222; 99232 ==

== ENCOUNTER → 2023-10-08 21:48 | Outpatient (BNV) | payer OTHER, SELFPAY | PROVIDERS: Admitting Provider Internal Medicine; Emergency Provider Internal Medicine; PCP Pediatrics; Visit Provider Surgery Vascular Surgery | DX: I82.413 Acute embolism and thrombosis of femoral vein, bilateral (principal); R78.81 Bacteremia | CPT/HCPCS: 37191; 99222; 99232 ==